=== PATIENT | male | born 1960 | race Caucasian/White ===

== ENCOUNTER 2019-07-22 10:57 | Emergency (ER) | payer MEDICARE, BC, SELFPAY ==
--- NOTE | ~2019-07-22 | US_ITS ---
EXAMINATION: US venous doppler LE RT DATE: 07/22/2019 12:24 INDICATION: Right lower limb pain post cardiac ablation. TECHNIQUE: Grayscale ultrasound images without and with compression and Doppler ultrasound images of the right lower extremity veins were obtained. COMPARISON: None. FINDINGS: The visualized portions of right common femoral vein, profunda (deep) femoral vein, femoral vein, pop liteal vein, peroneal trunk, posterior tibial veins, peroneal veins, gastrocnemius vein and greater s aphenous vein outflow are patent. IMPRESSION: 1. No deep venous thrombosis in the right lower limb. 2. Right groin hematoma as discussed in further detail on arterial duplex ultrasound of the right low er extremity. Reviewed, dictated and finalized at location A. COIL CLEANER IMPRESSION: 1. No deep venous thrombosis in the right lower limb. 2. Right groin hematoma as discussed in further detail on arterial duplex ultra sound of the right lower extremity.
--- NOTE | ~2019-07-22 | US_ITS ---
EXAMINATION: US arterial duplex LE RT DATE: 07/22/2019 12:24 INDICATION: Right groin pain post cardiac ablation TECHNIQUE: Multiple grayscale and Doppler ultrasound images of the right groin were obtained. COMPARISON: None FINDINGS: Right common femoral, profunda femoral and superficial femoral arteries are patent with normal tripha sic arterial waveforms. The right common femoral profunda femoral and femoral veins are patent with n ormal venous waveforms. No arterialization to suggest AV fistula. Along side the vessels at the right groin is a 4.9 x 3.0 x 3.6 cm hypoechoic region without internal flow on color Doppler consistent wi th a likely postoperative hematoma. No pseudoaneurysm. IMPRESSION: 1. 4.9 x 3.0 x 3.6 cm right groin hematoma. No pseudoaneurysm or AV fistula. Reviewed, dictated and finalized at location A. ING CARRIER
[2019-07-22 11:10] VITALS: BP 102/58; PULSE 81; RESP 22; TEMP 36.2; O2SAT 98
[2019-07-22 11:22] VITALS: BP 129/68; PULSE 67; RESP 21; TEMP 36.2; O2SAT 100
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
== END 2019-07-22 15:29 | disposition home or self-care (01) ==
PROVIDERS: Emergency Provider Emergency Medicine
DX: L76.32 Postprocedural hematoma of skin and subcutaneous tissue following other procedure (principal); I48.91 Unspecified atrial fibrillation; Z79.01 Long term (current) use of anticoagulants; M19.90 Unspecified osteoarthritis, unspecified site; I25.10 Atherosclerotic heart disease of native coronary artery without angina pectoris; M79.7 Fibromyalgia; E78.5 Hyperlipidemia, unspecified; I10 Essential (primary) hypertension; G62.9 Polyneuropathy, unspecified; Z85.828 Personal history of other malignant neoplasm of skin; Z86.73 Personal history of transient ischemic attack (TIA), and cerebral infarction without residual deficits; Z96.611 Presence of right artificial shoulder joint; M79.604 Pain in right leg
CPT/HCPCS: 93926; 93971; 99284

== ENCOUNTER 2020-01-04 09:32 | Emergency (ER) | payer MEDICARE, BC, SELFPAY ==
--- NOTE | ~2020-01-04 | CT_ITS ---
EXAMINATION: CT abdomen pelvis wo con DATE: 01/04/2020 10:16 INDICATION: Left flank pain. Unable to urinate. TECHNIQUE: Computed tomography (CT) of the abdomen and pelvis was performed without intravenous contr ast. Automated exposure control and iterative reconstruction technique were employed. The dose-length product was 1804.81 mGy-cm. COMPARISON: 04/30/2019 FINDINGS: 5 mm triangular intrafissural lymph node along the right minor fissure. Lung bases are otherwise darnell r. Heart size is normal. No pericardial or pleural effusion. Diffuse hepatic steatosis. Cholecystecto my clips at the gallbladder fossa. Splenic calcification consistent with old granulomatous disease. P ancreas and bilateral adrenal glands are normal. 1 cm low-attenuation right renal cyst. A couple nono bstructing stones in the mid left kidney the larger measuring 2-3 mm. No hydronephrosis or stones see n along the normal bilateral ureters. Bowels including the appendix are normal. Springer catheter in the partially decompressed bladder. No free intraperitoneal gas or fluid. No pathologically enlarged abd ominal or pelvic lymphadenopathy. T9 hemangioma. Moderate lumbar spondylosis. 5 mm retrolisthesis L3 on L4. Partial L5 laminectomy with internal fixation extending between the spinous processes of L5 an d S1. IMPRESSION: 1. Nonobstructing left nephrolithiasis with no other acute intra-abdominal/pelvic process. Reviewed, dictated and finalized at location A. IMPRESSION: 1. Nonobstructing left nephrolithiasis with no other acute intra-abdominal/pelv ic process.
[2020-01-04 09:38] VITALS: BP 190/108; PULSE 75; RESP 22; TEMP 37; O2SAT 98
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
[2020-01-04 10:09] LABS: Basophils Percent Auto 0.4 % (0.2-1.2); Eosinophils Absolute Auto 0.1 K/mm3 (0-0.3); Eosinophils Percent Auto 2.7 % (0-4.4); Hematocrit 43.8 % (42.0-52.0); Hemoglobin 14.5 g/dL (14.0-18.0); Immature Granulocyte Absolute 0.02 K/mm3 (0.00-0.031); Immature Granulocyte Percent A 0.4 % (0-0.5); Lymphocytes Absolute Auto 0.83 K/mm3 (0.9-3.2); Mean Corpuscular HGB Conc 33.1 g/dl (32-36); Mean Corpuscular Hemoglobin 28.4 pg (26-34); Mean Corpuscular Volume 85.9 fl (80-100); Mean Platelet Volume 11.9 fl (7.4-10.4); Monocytes Absolute Auto 0.6 K/mm3 (0.1-0.6); Monocytes Percent Auto 12.3 % (2.6-8.5); Neutrophils Absolute Auto 3.3 K/mm3 (1.3-6.7); Neutrophils Percent Auto 67.2 % (45.5-73.1); Platelet Count Result 242 k/mm3 (150-375); Red Cell Distribution Width 14.5 % (11.5-14.5); White Blood Count 4.9 K/mm3 (4.5-10.0)
[2020-01-04 10:14] LABS: Add Urine Microscopic? YES; Amorphous Sediment Urine Few; Appearance Urine Cloudy (Clear); Bilirubin Urine Negative (Negative); Blood Urine Negative (Negative); Color Urine Yellow (Yellow); Glucose Urine UA Negative (Negative); Ketones Urine Negative (Negative); Leukocyte Esterase Ur Negative LEU/UL (Negative); Mucus Urine Rare /lpf; Nitrate Urine Negative (Negative); Protein Urine Negative (Negative); Specific Grav Ur 1.013 (1.001-1.035); Urobilinogen Urine Negative mg/dL (<2.0); WBC Urine 0-3 /hpf
[2020-01-04 10:19] LABS: INR 2.1; Prothrombin Time 22.8 Seconds (11.1-14.7)
[2020-01-04 10:20] LABS: Partial Thromboplastin Time 41.4 SECONDS (22.3-36.8)
[2020-01-04 10:21] LABS: Alanine Aminotransferase 85 U/L (4-50); Albumin Level 4.9 g/dL (3.5-5.1); Alkaline Phosphatase 106 U/L (38-126); Aspartate Amino Transferase 61 U/L (17-59); Bilirubin,Total 0.6 mg/dL (0.2-1.3); Blood Urea Nitrogen 19 mg/dL (9-20); Carbon Dioxide 23 mmol/L (22-30); Chloride 107 mmol/L (98-107); Estimated CRCL calculation 108 ml/min; Estimated Glomerular Filt Rate > 60; Glucose 106 mg/dL (75-110); Lipase 128 U/L (23-300); Potassium 3.6 mmol/L (3.4-5.0); Sodium 139 mmol/L (137-145)
[2020-01-04 10:40] VITALS: TEMP 37
[2020-01-04 10:53] VITALS: BP 142/84; PULSE 69; RESP 18; O2SAT 98
[2020-01-04] MEDS: KETOROLAC 30 MG/ML VIAL (*BKC) IV PUSH (11:53)
[2020-01-04 12:30] VITALS: BP 137/81; PULSE 61; RESP 18; O2SAT 97
[2020-01-04 12:32] VITALS: TEMP 37
[2020-01-04] MEDS: TAMSULOSIN HCL 0.4 MG CAPSULE PO (12:49)
[2020-01-04 12:50] VITALS: BP 140/72; PULSE 62; RESP 17; O2SAT 97
== END 2020-01-04 13:00 | disposition home or self-care (01) ==
PROVIDERS: Emergency Provider Emergency Medicine; PCP Internal Medicine
DX: R10.84 Generalized abdominal pain (principal); N20.0 Calculus of kidney; I48.91 Unspecified atrial fibrillation; Z79.01 Long term (current) use of anticoagulants; M19.90 Unspecified osteoarthritis, unspecified site; I25.10 Atherosclerotic heart disease of native coronary artery without angina pectoris; M79.7 Fibromyalgia; E78.5 Hyperlipidemia, unspecified; I10 Essential (primary) hypertension; G62.9 Polyneuropathy, unspecified; Z85.828 Personal history of other malignant neoplasm of skin; G47.30 Sleep apnea, unspecified; Z86.73 Personal history of transient ischemic attack (TIA), and cerebral infarction without residual deficits; Z96.611 Presence of right artificial shoulder joint; F41.9 Anxiety disorder, unspecified; F43.10 Post-traumatic stress disorder, unspecified
CPT/HCPCS: 36415; 51702; 74176; 80053; 81001; 83605; 83690; 85025; 85610; 85730; 96374; 96375; 99284; A9270; J1885; J3010

== ENCOUNTER 2020-05-14 13:49 | Observation (INO) | payer MEDICARE, BC, SELFPAY ==
--- NOTE | ~2020-05-14 | XR_ITS ---
EXAMINATION: XR chest 1V DATE: 05/14/2020 14:18 INDICATION: Hypertension. TECHNIQUE: A single frontal view of the chest was obtained. COMPARISON: Chest 2 views 04/30/2019 FINDINGS: There is mild atelectasis in the lower lung zones. No pleural effusion or pneumothorax. The heart size is normal. There is an electronic implant in left chest wall. There are old healed right rib fractures. IMPRESSION: 1. Mild atelectasis in the lower lung zones. Reviewed, dictated and finalized at location B. RELATIONS ADVISER
--- NOTE | ~2020-05-14 | US_ITS ---
EXAMINATION: US carotid duplex BI EXAM DATE: 05/15/2020 10:17 INDICATION: Speech impairment. TECHNIQUE: Grayscale, color and pulsed Doppler images of the cervical carotid arteries were obtained . The degree of vessel stenosis is placed in one of the following categories: normal, <50% stenosis, 50-69% stenosis, >=70% stenosis but less than near-occlusion, near-occlusion, or occlusion. Note that percent stenosis relative to normal distal artery lumen diameter is indirectly measured from velocit y measurements as described by Ric, et al. Radiology 2003; 229:340-346. Comparison is made to prior examination from 11/15/2017. FINDINGS: There is incidental right thyroid lobe predominantly cystic isoechoic nodule, category TR 1 measuring about 1 x 2 cm. Not likely clinically significant finding. RIGHT SIDE: Right common carotid artery peak systolic velocity (PSV in cm/s): 56 Right bulb/internal carotid artery peak systolic velocity (PSV in cm/s): 94 Right internal carotid artery end diastolic velocity (EDV in cm/s): 34 Right ICA/CCA peak systolic ratio: 1.4 Right external carotid artery peak systolic velocity (PSV in cm/s): 35 Right vertebral artery antegrade flow: yes There is no focal plaque identified. LEFT SIDE: Left common carotid artery peak systolic velocity (PSV in cm/s): 59 Left bulb/internal carotid artery peak systolic velocity (PSV in cm/s): 55 Left internal carotid artery end diastolic velocity (EDV in cm/s): 22 Left ICA/CCA peak systolic ratio: 0.9 Left external carotid artery peak systolic velocity (PSV in cm/s): 36 Left vertebral artery antegrade flow: yes There is no focal plaque identified. IMPRESSION: 1. Normal right internal carotid artery. 2. Normal left internal carotid artery. Reviewed, dictated and finalized at location B. OR ENLISTED ADVISOR
--- NOTE | ~2020-05-14 | MR_ITS ---
EXAMINATION: MR brain/brain stem wo/w con DATE: 05/15/2020 12:53 INDICATION: Right facial weakness. Transient ischemic attack. TECHNIQUE: Magnetic resonance imaging (MRI) of the brain and brainstem was performed without and with 20 mL MultiHance intravenous contrast. Sequences included sagittal and axial T1-weighted FSE, axial diffusion-weighted FS EPI, axial T2*-weighted GRE, axial T2-weighted FLAIR Propeller, and axial T2-we ighted Propeller. Postcontrast sequences included axial and coronal T1-weighted FSE. Apparent diffusi on coefficient (ADC) maps were created. COMPARISON: Brain MRI 11/05/2017 FINDINGS: Artifact from the patient's mouth obscures the anteroinferior aspect of the brain on the di ffusion-weighted sequence. There are scattered areas of nonspecific increased T2-weighted signal inte nsity in the cerebral white matter, which is within normal limits for the patient's age. There is no intracranial hemorrhage, acute infarction, or abnormal intracranial mass lesion. The ventricles are n ormal in size. The mastoid air cells are normal. There is mild mucosal thickening in the paranasal si nuses. There are likely changes of ocular lens replacement surgeries. IMPRESSION: 1. Normal aging brain. Reviewed, dictated and finalized at location A. ING MACHINE SET UP OPERATOR IMPRESSION: 1. Normal aging brain.
--- NOTE | ~2020-05-14 | CT_ITS ---
EXAMINATION: CTA chest PE abdomen pel DATE: 05/14/2020 17:07 INDICATION: Chest pain TECHNIQUE: Computed tomography angiography (CTA) of the chest, abdomen and pelvis was performed with 100 mL Omnipaque-350 intravenous contrast timed to evaluate the pulmonary arteries. Coronal maximum i ntensity projection 3D-reconstructions were created by the technologist. Automated exposure control a nd iterative reconstruction technique were employed. Exam dose: 2744.80 mGy-cm total exam DLP. COMPARISON: 01/2020 CT abdomen pelvis 11/05/2017 CTA chest FINDINGS: There is no evidence of pulmonary embolism. No thoracic aortic aneurysm or dissection. Normal heart size. Trace pericardial fluid. No pulmonary infiltrate or consolidation. There are calcified left hilar nodes and calcified granulom as in the posterior segment left upper lobe, consistent with old pulmonary granulomatous disease. Occasional splenic calcified granulomas are noted as well. No hilar or mediastinal mass lesion or lymphadenopathy. Status post cholecystectomy. No bile duct dilatation. No hepatic, pancreatic or splenic space-occupyi ng mass lesion. Normal morphology of the adrenal glands. 1.6 cm posterior upper pole right renal cyst. There is an indeterminate approximately 2.6 cm hypoenha ncing anterior mid left renal lesion with attenuation of approximately 39 Hounsfield units. Different ial diagnosis includes left renal cyst, focal pyelonephritis, abscess, left renal malignancy, less li rosana focal infarct. There are immediately adjacent approximately 4.8 mm and 3.4 mm nonobstructing left renal calculi. Normal caliber of the abdominal aorta minimal atherosclerotic calcification. No intraperitoneal or retroperitoneal or pelvic mass lesion or adenopathy or ascites is noted otherwi se. There is mild colonic diverticulosis; no CT evidence of diverticulitis. No bowel obstruction, bowel w all thickening, pneumatosis or intraperitoneal free air. There is moderate prostate enlargement. There are prostate calcifications. The urinary bladder is unr emarkable. Right humeral head replacement. Degenerative change at the acromioclavicular and glenohumeral joints. Old posterior healed lower right rib fractures. Degenerative disc disease of the lower cervical spine. Diffuse idiopathic skeletal hyperostosis of the thoracic spine. T10 vertebral body hemangioma. Posterior fusion at L5-S1. There is severe degenerative disease in the mid and lower lumbar spine. Th ere is mild retrolisthesis at L3-4. Osteoarthritis at the hip joints. IMPRESSION: Indeterminate hypoenhancing 2.6 cm left renal lesion 4.8 and 3.4 mm left nonobstructing renal calculi 1.6 cm posterior upper pole right renal cyst Mild colonic diverticulosis Moderate prostate enlargement, prostate calcifications Status post cholecystectomy Reviewed, dictated and finalized at Location A. Reviewed, dictated and finalized at location A. RAL STATION OPERATOR
--- NOTE | ~2020-05-14 | US_ITS ---
EXAMINATION: US renal BI DATE: 05/15/2020 10:18 INDICATION: Renal mass TECHNIQUE: Multiple ultrasound grayscale images of the kidneys were obtained. COMPARISON: None. FINDINGS: The right kidney measures 11.8 x 5.6 x 6.7 cm. The left kidney measures 12.0 x 6.2 x 6.5 cm. The kidn eys demonstrate normal echogenicity. There are couple small anechoic cysts at the upper pole of the r ight kidney measuring 1.5 cm and 1.0 cm in maximal diameters. 7 mm shadowing renal stone at the perip gordon of a 2.4 cm anechoic cyst at the upper pole of the left kidney which corresponds to the intermed iate attenuation lesion on the prior CT most likely a hemorrhagic/proteinaceous cyst. There is no hyd ronephrosis in either kidney. The bladder appears normal with calculated prevoid bladder volume of 24 1 mL and with increased postvoid residual bladder volume of 80 mL. Incidentally noted is diffuse hepa tic steatosis. IMPRESSION: 1. Bilateral renal cysts which includes the previously noted intermediate attenuation 2.4 cm lesion at the upper pole of the left kidney consistent with a proteinaceous/hemorrhagic cyst. 2. Nonobstructing 7 mm left renal stone with no hydronephrosis. 3. Mild increased postvoid residual bladder volume of 80 mL. 4. Diffuse hepatic steatosis. Reviewed, dictated and finalized at [facility]. ING FACILITATOR IMPRESSION: 1. Bilateral renal cysts which includes the previously noted intermediate atte nuation 2.4 cm lesion at the upper pole of the left kidney consistent with a pr oteinaceous/hemorrhagic cyst. 2. Nonobstructing 7 mm left renal stone with no hydronephrosis. 3. Mild increased postvoid residual bladder volume of 80 mL. 4. Diffuse hepatic steatosis.
--- NOTE | ~2020-05-14 | CT_ITS ---
EXAMINATION: CT brain wo con DATE: 05/14/2020 14:14 INDICATION: Slurred speech, numbness and altered mental status. TECHNIQUE: Computed tomography (CT) of the head was performed without intravenous contrast. Sagittal and coronal reconstructions were performed. The mA was adjusted according to patient size. Iterative reconstruction technique was employed. The dose-length product was 605.33 mGy-cm. COMPARISON: Head CT and brain MR dated 11/05/2017 FINDINGS: No acute intracranial hemorrhage, acute infarction or abnormal extra axial fluid collection. Ventricl es are normal and symmetric. No mass/mass effect. Changes of bilateral intraocular lens replacement. The orbits and mastoid air cells are normal. Mild mucosal thickening the bilateral ethmoid sinuses. IMPRESSION: 1. Normal brain. No acute intracranial process. Reviewed, dictated and finalized at location A. CIATE ENTERTAINMENT EDITOR
--- NOTE | 2020-05-14 13:59 | ECG_ITS ---
Measurements Intervals [place] Rate: 82 P: 56 OH: 124 QRS: 16 QRSD: 97 T: 47 QT: 406 QTc: 476 Interpretive Statements SINUS RHYTHM CANNOT RULE OUT SEPTAL INFARCT, AGE INDETERMINATE BORDERLINE ST-T WAVE ABNORMALITY- ANTEROLAT/INF LEADS BASELINE WANDER- V2 ABNORMAL ECG Electronically Signed On 05-15-2020 8:57:11 DIVISION TOLL WIRE CHIEF by Chano Villagomez D.O.
[2020-05-14 14:00] VITALS: BP 121/111; PULSE 82; RESP 20; TEMP 36.8; O2SAT 100
[2020-05-14 14:33] LABS: Basophils Percent Auto 0.3 % (0.2-1.2); Eosinophils Absolute Auto 0.1 K/mm3 (0-0.3); Hematocrit 41.7 % (42.0-52.0); Hemoglobin 14.3 g/dL (14.0-18.0); Immature Granulocyte Absolute 0.03 K/mm3 (0.00-0.031); Immature Granulocyte Percent A 0.4 % (0-0.5); Lymphocytes Absolute Auto 1.24 K/mm3 (0.9-3.2); Lymphocytes Percent Auto 17.3 % (18.3-44.2); Mean Corpuscular HGB Conc 34.3 g/dl (32-36); Mean Corpuscular Hemoglobin 28.9 pg (26-34); Mean Corpuscular Volume 84.2 fl (80-100); Mean Platelet Volume 11.6 fl (7.4-10.4); Monocytes Absolute Auto 0.8 K/mm3 (0.1-0.6); Monocytes Percent Auto 11.7 % (2.6-8.5); Neutrophils Percent Auto 69.3 % (45.5-73.1); Platelet Count Result 263 k/mm3 (150-375); Red Blood Count 4.95 M/mm3 (4.6-6.20); White Blood Count 7.2 K/mm3 (4.5-10.0)
[2020-05-14] MEDS: LORazepam INJ (*CRX) 2 MG/ML VIAL 0.5 MG IV PUSH (14:41)
[2020-05-14] MEDS: MORPHINE SULFATE (*CRX) 4 MG/ML INJ IV PUSH (14:41)
[2020-05-14 14:45] LABS: Anion Gap 12 mmol/L (8-16); Blood Urea Nitrogen 32 mg/dL (9-20); Calcium 10.1 mg/dL (8.4-10.2); Carbon Dioxide 28 mmol/L (22-30); Chloride 100 mmol/L (98-107); Estimated CRCL calculation 78 ml/min; Estimated Glomerular Filt Rate 52; Glucose 102 mg/dL (75-110); INR 1.3; Partial Thromboplastin Time 30.1 SECONDS (22.3-36.8); Potassium 2.9 mmol/L (3.4-5.0); Prothrombin Time 16.3 Seconds (11.1-14.7); Sodium 140 mmol/L (137-145)
[2020-05-14 14:58] LABS: Troponin I 0.027 ng/mL (0.000-0.034)
[2020-05-14 16:00] VITALS: BP 172/100; PULSE 74; RESP 20; O2SAT 99
[2020-05-14] MEDS: KCL 20 MEQ/SW 100 ML 100 ML 50 MEQ IVPB (16:00)
[2020-05-14] MEDS: HYDROmorphone HCL INJ (*CRX) 1 MG/ML SYR IV PUSH (16:44)
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
[2020-05-14 18:00] VITALS: BP 162/78; PULSE 78; RESP 18; O2SAT 99
--- NOTE | 2020-05-14 19:05 | ADMGEN ---
This patient, London Menendez, was admitted to Medical Room 344-01. Patient/family oriented to hospital policies and general routines including ID bracelet, bed and alarms, visiting hours, pain management, procedures, bathroom and other care routines, personal items, smoking policy, room service/diet, and visiting hours. Information on how to activate the Rapid Response Team has been discussed. Patient/Family are encouraged to report perceived risks to care and to ask questions if they do not understand what they are told or what they should do.
[2020-05-14 19:38] VITALS: BP 146/80; PULSE 68; RESP 16; TEMP 36.1; O2SAT 100; BMI 41.4
[2020-05-14 20:00] VITALS: PULSE 70
[2020-05-14 21:12] LABS: Troponin I 0.018 ng/mL (0.000-0.034)
[2020-05-15] VITALS (8 sets, daily range): BP systolic 140–145; BP diastolic 59–94; PULSE 69–84; RESP 16–18; TEMP 35.6–36.1; O2SAT 94–100
--- NOTE | 2020-05-15 | ECHO_ITS ---
Patient Info Name: London Menendez Age: 59 years : 1960 Gender: Male Ht: 75 in Wt: 332 lbs BSA: 2.88 m2 HR: 85 bpm BP: 146 / 80 mmHg Heart Rhythm: Sinus Rhythm Technical Quality: Fair Exam Date: 05/15/2020 11:33 AM Exam Location: [facility] Patient Status: Inpatient Admit Date: 05/14/2020 Staff Ordering Physician: Zahraa Melendez NP Branch Service Leader: Yunier Talavera RDCS Attending Provider: Cesar Schumacher MD Referring Physician: Nora ACKERMAN; Exam Type: CA echo dop bubble study w con Study Info Indications 435.9 - TIA Complete two-dimensional, color flow and Doppler transthoracic echocardiogram is performed with contrast to opacify the left ventricle and to improve the deliniation of the left ventricle endocardial borders. Agitated saline study is performed. Contrast/Agitated Saline Contrast/Ag. Saline: Definity Amount: 1.00 ml Administered By: Bridgette Naik RN Existing IV Access: Yes Contrast/Ag. Saline: Agitated Saline Amount: 18.00 ml Administered By: Bridgette Naik RN Existing IV Access: Yes History/Risk Factors TIAs, HTN, CAD, pAfib s/p ablation. Summary 1. There is mild concentric increased left ventricular wall thickness. 2. Left ventricular systolic function is normal, estimated at 65-70%. 3. Left atrial chamber dimension is mildly enlarged. 4. Intact interatrial septum visualized by agitated saline imaging. 5. No shunt at the level of the atrial septum identified. 6. Definity contrast injected to improve visualization. Left Ventricle Left ventricular chamber dimension is normal. Left ventricular systolic function is normal, estimated at 65-70%. There is mild concentric increased left ventricular wall thickness. The left ventricular diastolic function is normal. Right Ventricle Right ventricular chamber dimension is normal. Left Atria Left atrial chamber dimension is mildly enlarged. Right Atria Right atrial chamber dimension is normal. Atrial Septum Intact interatrial septum visualized by agitated saline imaging. No shunt at the level of the atrial septum identified. Aortic Valve The aortic valve is normal. Pulmonic Valve The pulmonic valve is not well visualized. Mitral Valve The mitral valve has normal leaflets. Tricuspid Valve The tricuspid valve leaflets are normal. Pericardium/Pleural The pericardium appears normal. Aorta The aortic root size at the sinus of Valsalva is normal. Left Ventricular Outflow Tract Name Value Normal LVOT 2D LVOT Diameter 2.0 cm LVOT Doppler LVOT Peak Gradient 4 mmHg LVOT Mean Gradient 2 mmHg LVOT VTI 16 cm LVOT VTI/AV VTI Ratio 0.8 LVOT Stroke Volume 47 ml LVOT CO 3.9 l/min LVOT CI 1.4 l/min/m2 Mitral Valve
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
--- NOTE | 2020-05-15 00:09 | ECG_ITS ---
Measurements Intervals [place] Rate: 74 P: 60 NJ: 148 QRS: 30 QRSD: 93 T: 38 QT: 434 QTc: 482 Interpretive Statements SINUS RHYTHM VENTRICULAR PREMATURE COMPLEX PROLONGED QT INTERVAL ABNORMAL ECG Electronically Signed On 05-15-2020 13:41:20 ASSISTANT PROFESSOR OF THEATER by Chano Villagomez D.O.
[2020-05-15 00:10] LABS: Troponin I 0.022 ng/mL (0.000-0.034)
[2020-05-15 00:50] LABS: Anion Gap 12 mmol/L (8-16); Blood Urea Nitrogen 30 mg/dL (9-20); Calcium 9.2 mg/dL (8.4-10.2); Carbon Dioxide 27 mmol/L (22-30); Chloride 101 mmol/L (98-107); Estimated CRCL calculation 84 ml/min; Estimated Glomerular Filt Rate 56; Glucose 99 mg/dL (75-110); Potassium 2.7 mmol/L (3.4-5.0); Sodium 140 mmol/L (137-145)
[2020-05-15 01:09] LABS: INR 1.2; Prothrombin Time 15.9 Seconds (11.1-14.7)
[2020-05-15] MEDS: POTASSIUM CHLORIDE 20 MEQ TABLET 40 MEQ PO (01:16)
[2020-05-15] MEDS: HYDROcodone/acetaminophen (*CRX) 10-325 MG TABLET 1 TAB PO ×2 (01:16→08:37)
--- NOTE | 2020-05-15 01:35 | PCRCNOTE ---
patient declined use of hospital cpap/bipap unit
[2020-05-15 06:33] LABS: Basophils Percent Auto 0.2 % (0.2-1.2); Eosinophils Absolute Auto 0.2 K/mm3 (0-0.3); Eosinophils Percent Auto 2.6 % (0-4.4); Hematocrit 40.9 % (42.0-52.0); Hemoglobin 13.8 g/dL (14.0-18.0); Immature Granulocyte Absolute 0.02 K/mm3 (0.00-0.031); Immature Granulocyte Percent A 0.3 % (0-0.5); Lymphocytes Percent Auto 24.4 % (18.3-44.2); Mean Corpuscular HGB Conc 33.7 g/dl (32-36); Mean Corpuscular Hemoglobin 28.5 pg (26-34); Mean Corpuscular Volume 84.3 fl (80-100); Mean Platelet Volume 11.6 fl (7.4-10.4); Monocytes Absolute Auto 0.9 K/mm3 (0.1-0.6); Monocytes Percent Auto 15.5 % (2.6-8.5); Neutrophils Absolute Auto 3.3 K/mm3 (1.3-6.7); Platelet Count Result 253 k/mm3 (150-375); Red Blood Count 4.85 M/mm3 (4.6-6.20); Red Cell Distribution Width 13.9 % (11.5-14.5); White Blood Count 5.7 K/mm3 (4.5-10.0)
[2020-05-15 07:07] LABS: Alanine Aminotransferase 127 U/L (4-50); Albumin Level 4.4 g/dL (3.5-5.1); Alkaline Phosphatase 90 U/L (38-126); Anion Gap 10 mmol/L (8-16); Aspartate Amino Transferase 107 U/L (17-59); Bilirubin,Total 0.6 mg/dL (0.2-1.3); Blood Urea Nitrogen 28 mg/dL (9-20); Carbon Dioxide 28 mmol/L (22-30); Chloride 102 mmol/L (98-107); Estimated CRCL calculation 90 ml/min; Estimated Glomerular Filt Rate > 60; Glucose 89 mg/dL (75-110); Magnesium 2.2 mg/dL (1.6-2.3); Potassium 3.1 mmol/L (3.4-5.0); Sodium 140 mmol/L (137-145)
[2020-05-15] MEDS: POTASSIUM CHLORIDE 10 MEQ TABLET PO (08:37)
[2020-05-15] MEDS: PRAZOSIN HCL 1 MG CAPSULE 2 MG PO (08:39)
[2020-05-15] MEDS: VENLAFAXINE HCL XR 75 MG CAP.ER.24H 150 MG PO (08:40)
[2020-05-15] MEDS: DOCUSATE SODIUM 100 MG CAPSULE PO (08:40)
[2020-05-15] MEDS: amLODIPine BESYLATE 5 MG TABLET 10 MG PO (08:40)
[2020-05-15] MEDS: ISOSORBIDE MONONITRATE 30 MG TAB.ER.24H PO (08:40)
[2020-05-15] MEDS: GABAPENTIN 300 MG CAPSULE PO ×2 (08:40→17:10)
[2020-05-15] MEDS: TOPIRAMATE 100 MG TABLET PO ×2 (08:41→17:12)
[2020-05-15] MEDS: ATORVASTATIN 40 MG TABLET PO (08:41)
[2020-05-15] MEDS: PANTOPRAZOLE 40 MG TABLET PO (08:41)
[2020-05-15] MEDS: FENOFIBRATE 160 MG TABLET PO (08:41)
[2020-05-15] MEDS: MAGNESIUM OXIDE 200 MG TABLET PO ×2 (08:41→17:11)
[2020-05-15] MEDS: OMEGA 3 POLYUNSAT FATTY ACIDS 1 GM CAP PO ×2 (08:41→17:11)
[2020-05-15] MEDS: calcium polycarbophiL 625 MG TABLET PO (08:41)
[2020-05-15] MEDS: PREGABALIN (*CRX) 50 MG CAPSULE 100 MG PO ×2 (08:44→17:12)
[2020-05-15] MEDS: POTASSIUM CHLORIDE 20 MEQ TABLET PO (08:44)
[2020-05-15] MEDS: NAPROXEN 500 MG TABLET PO (13:05)
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
[2020-05-15] MEDS: WARFARIN (*PBKC) 4 MG TABLET 8 MG PO (17:13)
--- NOTE | 2020-05-15 17:34 | PM.DS ---
DS: Admitting Diagnosis Admitting Diagnosis Admitting Diagnosis: Chest Pain, TIA DS: Discharge Diagnosis Discharge Diagnosis (1) Brain TIA: Code(s): G45.9 - Transient cerebral ischemic attack, unspecified Status: Acute Assessment and Plan: The patient presented with complaints of facial numbness and inability to raise his arms. Patient has hx of TIA. Brain CT showing normal brain. Brain MRI showing normal aging brain. Carotid US showing normal right and left internal carotid artery. Echo showing EF 65% with normal diastolic function. No shunt. Neuro followed along. ASA added. Sx resolved. Already on Lipitor. (2) Chest pain: Qualifiers: Chest pain type: unspecified Qualified Code(s): R07.9 - Chest pain, unspecified Code(s): R07.9 - Chest pain, unspecified Status: Acute Assessment and Plan: Patient with atypical CP. CXR showing mild atelectasis in the lower lung zones. troponins have been negative x3. EKG showing borderline ST-T wave changes in the anterolateral leads. Echo as above. CTA showing no PEs. Doubt this was cardiac related. (3) A-fib: Code(s): I48.91 - Unspecified atrial fibrillation Status: Acute Assessment and Plan: On Coumadin but INR subherapeutic. He states he is compliant with his medications. (4) Elevated LFTs: Code(s): R79.89 - Other specified abnormal findings of blood chemistry Status: Acute Assessment and Plan: AST/ALT elevated but noted before for the past year. CT scan showing status post cholecystectomy with no bile duct dilatation or hepatic space-occupying mass lesions. Continue Lipitor for now since about 2x/normal. Repeat as outpatient. (5) Renal lesion: Code(s): N28.9 - Disorder of kidney and ureter, unspecified Status: Acute Assessment and Plan: CT scan showing indeterminate hypoenhancing 2.6 cm left renal lesion with 4.8 and 3.4 mm left nonobstructing renal calculi. He does have some mild left sided back pain. Renal US showing bilateral renal cysts which includes the previously noted intermediate attenuation 2.4 cm lesion at the upper pole of the left kidney consistent with a proteinaceous/hemorrhagic cyst. UA negative. No evidence of urinary infection or blood in urine. (6) Hypertension: Code(s): I10 - Essential (primary) hypertension Status: Chronic Assessment and Plan: BP elevated at home and here. We continued with Norvasc. Will add metoprolol since might help his BENDER. (7) Rheumatoid arthritis: Code(s): M06.9 - Rheumatoid arthritis, unspecified Status: Chronic Assessment and Plan: He takes naproxen, Arava. (8) Anxiety: Code(s): F41.9 - Anxiety disorder, unspecified Status: Chronic Assessment and Plan: Stable. DS: Summary Hospital Course Reason for hospitalization: 59yo male here for atypical chest/left shoulder pain and possible TIA symptoms. Please see H&P for details. Hospital Course: As above Status at Discharge Cognitive/behavioral status at discharge: PATIENT STABLE AT DISCHARGE Time Spent with Patient Time attestation: Total time spent providing and/or coordinating discharge services: 35 minutes Time spent: Greater than 30 minutes Exam Narrative: Exam Narrative: AF 96.0 140/59 74 18 97% ra Gen - NARD Chest -CTA Bilaterally, nml RR CV - RRR S1/S2 Abd - soft obese, NT Back - left perispinal tenderness, no CVA tenderness, +SLR on the left Ext - no edema 2+ DP Psych - nml mood, odd affect Skin - wrm and dry DS: Data Data Completed and Pending Labs on day of discharge: Labs from last 24 hours 05/15/20 05/15/20 05/15/20 05:36 05:36 05:36 WBC 5.7 RBC 4.85 Hgb 13.8 L Hct 40.9 L MCV 84.3 MCH 28.5 MCHC 33.7 RDW 13.9 Plt Count 253 MPV 11.6 H Immature Gran % (Auto) 0.3 Neut % (Auto) 57.0 Lymph % (Auto
[2020-05-15 18:11] LABS: Add Urine Microscopic? YES; Appearance Urine Cloudy (Clear); Bacteria Urine Trace /hpf; Bilirubin Urine Negative (Negative); Blood Urine Negative (Negative); Color Urine Yellow (Yellow); Glucose Urine UA Negative (Negative); Ketones Urine Negative (Negative); Leukocyte Esterase Ur Negative LEU/UL (Negative); Nitrate Urine Negative (Negative); Protein Urine Negative (Negative); RBC Urine 0-2 /hpf (0-2); Specific Grav Ur 1.029 (1.001-1.035); Urobilinogen Urine Negative mg/dL (<2.0); WBC Urine 0-3 /hpf
[2020-05-15] MEDS: ASPIRIN 81 MG CHEWABLE TABLET PO (18:28)
== END 2020-05-15 18:50 | disposition home or self-care (01) ==
LOC: ANHED 19:06 → ANH3MED 19:09
PROVIDERS: Emergency Medicine; Nurse Practitioner; Admitting Provider Internal Medicine; Emergency Provider Emergency Medicine; PCP Internal Medicine; Visit Provider Internal Medicine
DX: G45.9 Transient cerebral ischemic attack, unspecified (principal); R07.9 Chest pain, unspecified; N28.9 Disorder of kidney and ureter, unspecified; R79.89 Other specified abnormal findings of blood chemistry; N20.0 Calculus of kidney; N28.1 Cyst of kidney, acquired; K57.30 Diverticulosis of large intestine without perforation or abscess without bleeding; N40.0 Benign prostatic hyperplasia without lower urinary tract symptoms; G43.909 Migraine, unspecified, not intractable, without status migrainosus; I48.91 Unspecified atrial fibrillation; I25.10 Atherosclerotic heart disease of native coronary artery without angina pectoris; I10 Essential (primary) hypertension; M06.9 Rheumatoid arthritis, unspecified; E78.5 Hyperlipidemia, unspecified; G47.30 Sleep apnea, unspecified; G62.9 Polyneuropathy, unspecified; M79.7 Fibromyalgia; F41.8 Other specified anxiety disorders; Z86.73 Personal history of transient ischemic attack (TIA), and cerebral infarction without residual deficits; F43.10 Post-traumatic stress disorder, unspecified; Z23 Encounter for immunization
CPT/HCPCS: 36415; 70450; 70553; 71045; 71275; 74177; 76775; 80048; 80053; 81001; 83735; 84443; 84484; 85025; 85610; 85730; 86140; 90471; 90653; 93005; 93880; 96365; 96366; 96375; 99285; A9270; A9577; C8929; G0008; G0378; J1170; J2060; J2270; J3480; Q9957; Q9967

== ENCOUNTER 2020-06-28 15:23 | Emergency (ER) | payer MEDICARE, BC, SELFPAY ==
--- NOTE | ~2020-06-28 | XR_ITS ---
EXAMINATION: XR chest 2V 06/28/2020 16:02 INDICATION: Left midsternal chest pain and cough PROCEDURE: 2 view chest COMPARISON: Comparison to multiple prior studies sequentially, with oldest reviewed study dated 12/17. FINDINGS: The lungs are clear. The cardiomediastinal silhouette is within normal limits. There are no pleural effusions. There is no pneumothorax suspected. IMPRESSION: 1: NO ACUTE CARDIOPULMONARY DISEASE. Reviewed, dictated and finalized at location A. TROMECHANICAL EQUIPMENT TESTER
[2020-06-28 15:26] VITALS: BP 173/100; PULSE 89; RESP 20; TEMP 37; O2SAT 95
--- NOTE | 2020-06-28 15:30 | ECG_ITS ---
Measurements Intervals [place] Rate: 85 P: 59 ND: 151 QRS: 9 QRSD: 109 T: 37 QT: 393 QTc: 469 Interpretive Statements SINUS RHYTHM NORMAL ECG Electronically Signed On 06-28-2020 15:45:04 WALLPAPER INSPECTOR by Chano Villagomez D.O.
[2020-06-28] MEDS: ASPIRIN 81 MG CHEWABLE TABLET 324 MG PO (15:37)
[2020-06-28 15:40] LABS: Basophils Percent Auto 0.3 % (0.2-1.2); Eosinophils Absolute Auto 0.1 K/mm3 (0-0.3); Hematocrit 40.4 % (42.0-52.0); Hemoglobin 13.7 g/dL (14.0-18.0); Immature Granulocyte Absolute 0.01 K/mm3 (0.00-0.031); Immature Granulocyte Percent A 0.3 % (0-0.5); Lymphocytes Absolute Auto 0.73 K/mm3 (0.9-3.2); Lymphocytes Percent Auto 18.3 % (18.3-44.2); Mean Corpuscular HGB Conc 33.9 g/dl (32-36); Mean Corpuscular Hemoglobin 29.1 pg (26-34); Mean Corpuscular Volume 85.8 fl (80-100); Monocytes Absolute Auto 0.5 K/mm3 (0.1-0.6); Monocytes Percent Auto 13.3 % (2.6-8.5); Neutrophils Absolute Auto 2.6 K/mm3 (1.3-6.7); Neutrophils Percent Auto 65.8 % (45.5-73.1); Platelet Count Result 217 k/mm3 (150-375); Red Blood Count 4.71 M/mm3 (4.6-6.20); Red Cell Distribution Width 13.5 % (11.5-14.5)
[2020-06-28 15:52] LABS: Anion Gap 11 mmol/L (8-16); Blood Urea Nitrogen 22 mg/dL (9-20); Calcium 8.9 mg/dL (8.4-10.2); Carbon Dioxide 26 mmol/L (22-30); Chloride 103 mmol/L (98-107); Estimated CRCL calculation 98 ml/min; Estimated Glomerular Filt Rate > 60; Glucose 131 mg/dL (75-110); Potassium 3.2 mmol/L (3.4-5.0); Sodium 140 mmol/L (137-145)
[2020-06-28 15:55] LABS: INR 2.4; Prothrombin Time 26.3 Seconds (11.1-14.7)
[2020-06-28 15:56] LABS: Partial Thromboplastin Time 46.2 SECONDS (22.3-36.8)
[2020-06-28 16:04] LABS: Troponin I < 0.012 ng/mL (0.000-0.034)
[2020-06-28 16:08] VITALS: BP 159/98; PULSE 80; RESP 20; O2SAT 96
[2020-06-28 16:48] VITALS: BP 157/101; PULSE 75; RESP 20; O2SAT 95
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
[2020-06-28 17:33] VITALS: BP 154/91; PULSE 76; RESP 20; O2SAT 98
[2020-06-28] MEDS: POTASSIUM CHLORIDE 20 MEQ TABLET 40 MEQ PO (18:06)
[2020-06-28 18:14] VITALS: BP 167/97; PULSE 76; RESP 20; O2SAT 99
[2020-06-29 17:10] LABS: SARS-CoV-2 RNA PCR Positive
== END 2020-06-28 18:16 | disposition home or self-care (01) ==
PROVIDERS: Emergency Provider Emergency Medicine
DX: U07.1 COVID-19 (principal); R00.2 Palpitations; R07.9 Chest pain, unspecified; E87.6 Hypokalemia; F41.9 Anxiety disorder, unspecified; I48.91 Unspecified atrial fibrillation; M19.90 Unspecified osteoarthritis, unspecified site; I25.10 Atherosclerotic heart disease of native coronary artery without angina pectoris; E78.5 Hyperlipidemia, unspecified; I10 Essential (primary) hypertension; M06.9 Rheumatoid arthritis, unspecified; G62.9 Polyneuropathy, unspecified; Z85.828 Personal history of other malignant neoplasm of skin; Z86.73 Personal history of transient ischemic attack (TIA), and cerebral infarction without residual deficits; F43.10 Post-traumatic stress disorder, unspecified; F32.9 Major depressive disorder, single episode, unspecified; Z79.82 Long term (current) use of aspirin; Z79.01 Long term (current) use of anticoagulants
CPT/HCPCS: 36415; 71046; 80048; 84484; 85025; 85610; 85730; 87635; 93005; 99284; A9270; C9803; U0003

== ENCOUNTER 2020-07-06 12:25 | Inpatient (IN) | payer MEDICARE, BC, SELFPAY ==
[2020-07-06] VITALS (37 sets, daily range): BP systolic 164–200; BP diastolic 80–105; PULSE 76–120; RESP 15–27; TEMP 36.6–36.9; O2SAT 95–100; BMI 41.2
--- NOTE | ~2020-07-06 | XR_ITS ---
XR chest 1V portable 07/12/2020 09:47 Indication: Pneumonia Procedure: AP portable chest Comparison: Comparison to multiple prior studies sequentially, with oldest reviewed study dated 06/03. Findings: Cardiomegaly with diffuse bilateral airspace disease. Small left pleural effusion. No acute osseous abnormality. Impression: 1: Cardiomegaly with diffuse bilateral airspace disease which may represent edema or pneumonia. Reviewed, dictated and finalized at location A. VITIES DIRECTOR Impression: 1: Cardiomegaly with diffuse bilateral airspace disease which may represent maryaan ma or pneumonia.
--- NOTE | ~2020-07-06 | CT_ITS ---
EXAMINATION: CT brain wo con EXAM DATE: 07/06/2020 15:32 INDICATION: severe headache . COVID 19 positive. TECHNIQUE: Spiral CT of the head was performed without contrast. Axial, coronal and sagittal images were reviewed. The dose-length product (DLP) for this examination was 605.33 mGy-cm. The exposure w as tailored according to patient size, and iterative reconstruction (ASIR) was used as additional dos e reduction technique. Comparison is made to prior examination from 05/14/2020. FINDINGS: There is no acute intraparenchymal hemorrhage. No evidence of intraparenchymal brain mass lesion. No evidence of acute infarction. There is no mass effect or midline shift. The ventricles are normal in size. There are no extra-axial collections. There are no acute calvarial fractures. Chad ceja has had bilateral ocular lens surgery. Soft tissue is unremarkable. Mild ethmoid and maxilla ry sinus mucoperiosteal thickening. Only small portions of the maxillary sinuses were imaged. IMPRESSION: 1. No acute intracranial findings. Reviewed, dictated and finalized at location A. ICATION SOFTWARE ENGINEER
--- NOTE | ~2020-07-06 | CT_ITS ---
EXAMINATION: CTA chest PE protocol DATE: 07/07/2020 11:37 INDICATION: Shortness of breath. COVID-19 pneumonia. TECHNIQUE: Computed tomography angiography (CTA) of the chest was performed with 100 mL Omnipaque-350 intravenous contrast timed to evaluate the pulmonary arteries. Coronal maximum intensity projection 3D-reconstructions were created by the technologist. Automated exposure control and iterative reconst ruction technique were employed. The dose-length product was 1080.20 mGy-cm. COMPARISON: Chest CT 05/14/2020 FINDINGS: There are patchy airspace and groundglass opacities involving all lobes. Calcified left radha g nodules and calcified left hilar lymph nodes are consistent with old granulomatous disease. There a re trace pleural effusions. The heart size is normal. There are coronary artery calcifications. No pe ricardial effusion. There is no pulmonary embolus. There is a subcutaneous electronic implant in left anterior chest wall. There are old healed right rib fractures. There is mild thoracic spondylosis. T here is a hemangioma in T10 vertebral body. IMPRESSION: 1. No pulmonary embolus. 2. Diffuse lung disease, consistent with pneumonia. Reviewed, dictated and finalized at location A. ERY EQUIPMENT REPAIRER
--- NOTE | ~2020-07-06 | XR_ITS ---
XR chest 1V portable 07/06/2020 13:42 Indication: Shortness of breath and chest tightness. Covid Positive. Procedure: AP portable chest Comparison: Comparison to multiple prior studies sequentially, with oldest reviewed study dated 10/2018. Findings: Cardiomegaly. There is mild bilateral diffuse airspace disease. No pleural effusion or pneu mothorax. No acute osseous abnormality. There is a right shoulder arthroplasty. Impression: 1: Mild diffuse bilateral airspace disease which may represent pneumonia or edema. Reviewed, dictated and finalized at location A. FASTENER Impression: 1: Mild diffuse bilateral airspace disease which may represent pneumonia or maryana maThai
--- NOTE | ~2020-07-06 | XR_ITS ---
XR chest 1V portable 07/08/2020 08:28 Indication: CovidPneumonia Procedure: , AP portable chest Comparison: Comparison to multiple prior studies sequentially, with oldest reviewed study dated 04/03. Findings: Progression of patchy bilateral airspace disease, compatible with pneumonia. Cardiomegaly. There is right shoulder arthroplasty. Impression: 1: Progression of patchy bilateral airspace disease, compatible with pneumonia. Reviewed, dictated and finalized at location A. CARE SPECIALIST Impression: 1: Progression of patchy bilateral airspace disease, compatible with pneumonia.
--- NOTE | ~2020-07-06 | XR_ITS ---
XR chest 1V portable 07/10/2020 09:38 Indication: Pneumonia. Chest tightness. Procedure: AP portable chest Comparison: Comparison to multiple prior studies sequentially, with oldest reviewed study dated 05/03. Findings: Patchy bilateral airspace consolidation of the mid and lower lung zones, consistent with pn eumonia. No significant change compared with 07/08/2020. No significant effusion or pneumothorax. Impression: 1: Patchy bilateral airspace disease, compatible with pneumonia. Reviewed, dictated and finalized at location A. EAR PLANT EQUIPMENT OPERATOR Impression: 1: Patchy bilateral airspace disease, compatible with pneumonia.
--- NOTE | 2020-07-06 12:52 | ECG_ITS ---
Measurements Intervals [place] Rate: 85 P: 60 NJ: 155 QRS: 10 QRSD: 96 T: 35 QT: 384 QTc: 457 Interpretive Statements SINUS RHYTHM BASELINE WANDER- I, II, V3 NORMAL ECG Electronically Signed On 07-06-2020 13:16:32 COMMUNICATIONS INSTRUCTOR by Chano Villagomez D.O.
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
[2020-07-06] MEDS: ALBUTEROL SULFATE (*SP) AEROSOL 1 PUFF 6 PUFF INHALATION ×2 (13:06→22:43)
[2020-07-06 13:10] LABS: Alveolar/Arterial O2 Gradient 34.4 mmHg; Base Excess ABG -0.5 mEq/l (+/-2.0); Carboxyhemoglobin 0.4 % THb (0-2.0); Fractional Inspired Oxygen 21 %; HCO3 ABG 20.7 mEq/l (22.0-26.0); Methemoglobin ABG 0.1 %THb (0-1.5); Oxygen Content ABG 17.9 %vol (16.0-22.0); Oxygen Saturation ABG 97.5 % (95.0-100.0); PCO2 ABG 25.2 mmHg (35.0-45.0); PO2 ABG 85.2 mmHg (80.0-100.0); PO2 FiO2 Ratio Arterial Blood 4.06 %; Reduced Hemoglobin 3.5 %THb (0-5.0); Total Hemoglobin 13.2 g/dL (12.0-18.0)
[2020-07-06 13:11] LABS: Device ROOM AIR; Modified Allen's Test Pass; Site Drawn RIGHT RADIAL; pH ABG 7.532 (7.350-7.450)
[2020-07-06 13:30] LABS: Basophils Percent Auto 0.2 % (0.2-1.2); Eosinophils Percent Auto 0.4 % (0-4.4); Hematocrit 37.3 % (42.0-52.0); Hemoglobin 12.7 g/dL (14.0-18.0); Immature Granulocyte Absolute 0.03 K/mm3 (0.00-0.031); Immature Granulocyte Percent A 0.6 % (0-0.5); Lymphocytes Absolute Auto 0.61 K/mm3 (0.9-3.2); Lymphocytes Percent Auto 11.7 % (18.3-44.2); Mean Corpuscular Hemoglobin 28.5 pg (26-34); Mean Corpuscular Volume 83.8 fl (80-100); Mean Platelet Volume 10.5 fl (7.4-10.4); Monocytes Absolute Auto 0.6 K/mm3 (0.1-0.6); Monocytes Percent Auto 12.1 % (2.6-8.5); Neutrophils Absolute Auto 3.9 K/mm3 (1.3-6.7); Platelet Count Result 227 k/mm3 (150-375); Red Blood Count 4.45 M/mm3 (4.6-6.20); Red Cell Distribution Width 13.9 % (11.5-14.5); White Blood Count 5.2 K/mm3 (4.5-10.0)
[2020-07-06 13:39] LABS: INR 1.4; Prothrombin Time 18.2 Seconds (11.1-14.7)
[2020-07-06 13:40] LABS: Partial Thromboplastin Time 51.8 SECONDS (22.3-36.8)
[2020-07-06 13:49] LABS: Alanine Aminotransferase 63 U/L (4-50); Albumin Level 4.2 g/dL (3.5-5.1); Alkaline Phosphatase 78 U/L (38-126); Anion Gap 8 mmol/L (8-16); Aspartate Amino Transferase 71 U/L (17-59); Bilirubin,Total 0.6 mg/dL (0.2-1.3); Blood Urea Nitrogen 15 mg/dL (9-20); Calcium 8.9 mg/dL (8.4-10.2); Carbon Dioxide 25 mmol/L (22-30); Chloride 103 mmol/L (98-107); Estimated CRCL calculation 117 ml/min; Estimated Glomerular Filt Rate > 60; Glucose 102 mg/dL (75-110); Potassium 3.7 mmol/L (3.4-5.0); Sodium 136 mmol/L (137-145)
[2020-07-06 13:58] LABS: NT Pro B Type Natriuretic Pept 477 PG/ML (5-100); Troponin I 0.022 ng/mL (0.000-0.034)
[2020-07-06] MEDS: SODIUM CHLORIDE 0.9% IV 500 ML 999 ML IV CONT (14:41)
[2020-07-06] MEDS: LORazepam INJ (*CRX) 2 MG/ML VIAL 1 MG IV PUSH (14:41)
[2020-07-06] MEDS: MORPHINE SULFATE (*CRX) 4 MG/ML INJ IV PUSH (16:03)
[2020-07-06] MEDS: NITROGLYCERIN OINTMENT 1 INCH DOSE TRANSDERM (16:03)
[2020-07-06] MEDS: ONDANSETRON INJ 4 MG/2 ML VIAL IV PUSH (16:04)
[2020-07-06] MEDS: cloNIDine HCL 0.1 MG TABLET 0.2 MG PO (16:09)
[2020-07-06] MEDS: hydrALAZINE HCL 20 MG/ML VIAL 10 MG IV PUSH (16:40)
--- NOTE | 2020-07-06 18:37 | PC.NURSE ---
This patient, London Menendez, was admitted to [facility] Surg Room 303-01. Patient/family oriented to hospital policies and general routines including ID bracelet, bed and alarms, visiting hours, pain management, procedures, bathroom and other care routines, personal items, smoking policy, room service/diet, and visiting hours. Information on how to activate the Rapid Response Team has been discussed. Patient/Family are encouraged to report perceived risks to care and to ask questions if they do not understand what they are told or what they should do.
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
[2020-07-06 22:19] LABS: INR 1.5; Prothrombin Time 18.4 Seconds (11.1-14.7)
[2020-07-06] MEDS: HYDROmorphone HCL INJ (*CRX) 1 MG/ML SYR IV PUSH (22:40)
[2020-07-06] MEDS: LABETALOL HCL INJ 100 MG/20 ML VIAL 20 MG IV PUSH (22:45)
[2020-07-07] VITALS (12 sets, daily range): BP systolic 115–182; BP diastolic 58–93; PULSE 64–89; RESP 16–20; TEMP 36.1–38; O2SAT 93–99
[2020-07-07] MEDS: ENOXAPARIN 80 MG/0.8 ML SYRINGE 150 MG SUB-Q ×3 (02:04→21:40)
[2020-07-07] MEDS: LATANOPROST 0.005% OP SOLN 2.5 ML BTL 1 DROP EACH EYE ×2 (02:07→21:41)
[2020-07-07] MEDS: DOXEPIN HCL 25 MG CAPSULE PO ×2 (02:07→21:40)
[2020-07-07] MEDS: TOPIRAMATE 100 MG TABLET PO ×3 (02:08→16:50)
[2020-07-07] MEDS: QUEtiapine FUMARATE 100 MG TABLET 600 MG PO ×2 (02:08→21:40)
[2020-07-07] MEDS: SOTALOL HCL 80 MG TABLET PO ×3 (02:08→16:50)
[2020-07-07] MEDS: clonazePAM (*CRX) 0.25 MG TABLET PO ×3 (02:09→16:56)
[2020-07-07] MEDS: HYDROmorphone HCL INJ (*CRX) 1 MG/ML SYR IV PUSH ×2 (02:18→10:00)
[2020-07-07] MEDS: hydrALAZINE HCL 20 MG/ML VIAL 10 MG IV PUSH (04:04)
[2020-07-07] MEDS: LORazepam (*CRX) 0.5 MG TABLET PO (06:43)
[2020-07-07 06:50] LABS: Basophils Percent Auto 0.2 % (0.2-1.2); Hematocrit 36.6 % (42.0-52.0); Hemoglobin 12.3 g/dL (14.0-18.0); Immature Granulocyte Absolute 0.04 K/mm3 (0.00-0.031); Immature Granulocyte Percent A 0.7 % (0-0.5); Lymphocytes Percent Auto 12.5 % (18.3-44.2); Mean Corpuscular HGB Conc 33.6 g/dl (32-36); Mean Corpuscular Hemoglobin 28.2 pg (26-34); Mean Corpuscular Volume 83.9 fl (80-100); Mean Platelet Volume 11.4 fl (7.4-10.4); Monocytes Absolute Auto 0.6 K/mm3 (0.1-0.6); Monocytes Percent Auto 10.2 % (2.6-8.5); Neutrophils Absolute Auto 4.3 K/mm3 (1.3-6.7); Neutrophils Percent Auto 76.4 % (45.5-73.1); Platelet Count Result 218 k/mm3 (150-375); Red Blood Count 4.36 M/mm3 (4.6-6.20); Red Cell Distribution Width 13.7 % (11.5-14.5); White Blood Count 5.6 K/mm3 (4.5-10.0)
[2020-07-07 07:10] LABS: Alanine Aminotransferase 61 U/L (4-50); Alkaline Phosphatase 80 U/L (38-126); Anion Gap 6 mmol/L (8-16); Aspartate Amino Transferase 67 U/L (17-59); Bilirubin,Total 0.6 mg/dL (0.2-1.3); Blood Urea Nitrogen 14 mg/dL (9-20); Calcium 8.4 mg/dL (8.4-10.2); Carbon Dioxide 25 mmol/L (22-30); Chloride 102 mmol/L (98-107); Estimated CRCL calculation 106 ml/min; Estimated Glomerular Filt Rate > 60; Glucose 105 mg/dL (75-110); Sodium 133 mmol/L (137-145)
[2020-07-07] MEDS: ALBUTEROL SULFATE (*SP) AEROSOL 1 PUFF 6 PUFF INHALATION ×4 (09:57→21:39)
[2020-07-07] MEDS: DEXAMETHASONE SOD PHOS INJ 4 MG/ML VIAL 6 MG IV PUSH (09:57)
[2020-07-07 10:01] LABS: INR 1.3; Prothrombin Time 17.2 Seconds (11.1-14.7)
[2020-07-07] MEDS: OMEGA 3 POLYUNSAT FATTY ACIDS 1 GM CAP 2 GM PO ×2 (11:59→16:48)
[2020-07-07] MEDS: PREGABALIN (*CRX) 50 MG CAPSULE 100 MG PO ×2 (11:59→16:47)
[2020-07-07] MEDS: CHOLECALCIFEROL 1,000 UNITS TABLET 2000 UNITS PO (12:00)
[2020-07-07] MEDS: VENLAFAXINE HCL XR 75 MG CAP.ER.24H 150 MG PO (12:01)
[2020-07-07] MEDS: PRAZOSIN HCL 1 MG CAPSULE 2 MG PO (12:01)
[2020-07-07] MEDS: ASPIRIN 81 MG CHEWABLE TABLET PO (12:01)
[2020-07-07] MEDS: GABAPENTIN 300 MG CAPSULE PO ×2 (12:02→16:49)
[2020-07-07] MEDS: ATORVASTATIN 40 MG TABLET PO (12:02)
[2020-07-07] MEDS: ASCORBIC ACID 500 MG TABLET PO (12:02)
[2020-07-07] MEDS: MAGNESIUM OXIDE 200 MG TABLET PO ×2 (12:02→16:48)
[2020-07-07] MEDS: amLODIPine BESYLATE 5 MG TABLET 10 MG PO ×2 (12:03→16:49)
[2020-07-07] MEDS: CYANOCOBALAMIN 1,000 MCG TABLET 2000 MCG PO (12:04)
[2020-07-07] MEDS: ISOSORBIDE MONONITRATE 30 MG TAB.ER.24H PO (12:04)
[2020-07-07] MEDS: POTASSIUM CHLORIDE 20 MEQ TABLET.ER PO (12:04)
[2020-07-07] MEDS: PANTOPRAZOLE 40 MG TABLET PO (12:05)
[2020-07-07] MEDS: FENOFIBRATE 160 MG TABLET PO (12:05)
--- NOTE | 2020-07-07 14:48 | PM.IMPN ---
Progress Note: A&P Assessment and Plan (1) COVID-19: Code(s): U07.1 - COVID-19 Status: Acute Assessment and Plan: The patient has home oxygen at home and he has a pulse ox. I explained to the patient if he is not really requiring oxygen at this time that he may possibly be able to go home once his blood pressure is stable. Typically we keep people in the hospital that require oxygen. He is not requiring any oxygen at this time. I put oxygen on him because he has obstructive sleep apnea and were not able to use a CPAP machine. He did not become hypoxic. I like to do a CT a pulmonary because he was subtherapeutic on his Coumadin. He is on Coumadin for his atrial fibrillation but is in sinus rhythm because he has had a history of ablation. Incentive spirometer. I encouraged the patient to lay prone for 30 minutes to 2 hours. In to reposition himself on his sides and his back and to rotate. Continue with Robitussin. I did start the patient on Decadron. However I did not start him on REMdesivir because of his elevated liver enzymes and he is on room air at this time. He was diagnosed on 06/28/2020 07/07/20 14:48 Patient is 60-year-old male with history of hypertension atrial fibrillation had a cardioversion now in sinus rhythm, for which patient is taking warfarin and subtherapeutic, patient was diagnosed with COVID-19 were 1 week ago presented emergency department with a complaint of shortness and chest pain described as a pleuritic, and also had a low-grade fever but did not require any oxygen, to further evaluate patient had a CTA of the chest does not show any pulmonary emboli but does have pneumonia patient started on Zosyn and doxycycline, patient started on dexamethasone for COVID-19 however patient does not qualify for Remdesivir as patient is not needing high-flow oxygen, patient also has a history of hypertension and elevated blood pressure patient states that he has been taking his medication, he have resumeed patient's home medication, currently patient states feeling little better compared to when he arrived, will continue to monitor patient with repeat checks x-ray in today if there is improvement in pneumonia, patient is not requiring high-flow oxygen and no fever will discharge the patient home (2) Hypertension: Code(s): I10 - Essential (primary) hypertension Status: Chronic Assessment and Plan: I am not sure if the patient is taking his home medications. But will having difficulty controlling his blood pressure at this time. His side hydralazine clonidine and labetalol. Will continue his home medications as soon as they are reviewed. Continue with his metoprolol and Minipress (3) Migraines: Code(s): G43.909 - Migraine, unspecified, not intractable, without status migrainosus Status: Chronic Assessment and Plan: I did order Toradol for the patient the Tylenol did not help any he takes naproxen at home. He is allergic to Imitrex. Continue with ice packs as well. Continue with topiramate (4) Peripheral neuropathy: Code(s): G62.9 - Polyneuropathy, unspecified Status: Chronic Assessment and Plan: The patient is on Lyrica at home. (5) Anxiety: Code(s): F41.9 - Anxiety disorder, unspecified Status: Chronic Assessment and Plan: The patient has PTSD and is on Lyrica and Seroquel home. (6) Depression: Code(s): F32.9 - Major depressive disorder, single episode, unspecified Status: Chronic Assessment and Plan: Continue with Effexor (7) Fibromyalgia: Code(s): M79.7 - Fibromyalgia Status: Chronic Assessment and Plan: Continue with Lyrica and gabapentin (8) Hyperlipidemia: Code(s): E78.5 - Hyperlipidemia, unspecified Status: Chronic (9) Sleep apnea: Code(s): G47.30 - Sleep apnea, unspecified Status: Chronic Assessment and Plan: I am just going to put the patie
[2020-07-07] MEDS: HYDROcodone/acetaminophen (*CRX) 10-325 MG TABLET 1 TAB PO (16:56)
[2020-07-07] MEDS: WARFARIN (*PBKC) 10 MG TABLET PO (18:08)
[2020-07-08] VITALS (8 sets, daily range): BP systolic 118–145; BP diastolic 60–76; PULSE 62–98; RESP 18; TEMP 36.2–37.1; O2SAT 95–100
[2020-07-08 06:53] LABS: INR 1.3
[2020-07-08 07:13] LABS: Hematocrit 37.4 % (42.0-52.0); Hemoglobin 12.6 g/dL (14.0-18.0); Immature Granulocyte Absolute 0.04 K/mm3 (0.00-0.031); Immature Granulocyte Percent A 0.9 % (0-0.5); Lymphocytes Absolute Auto 0.59 K/mm3 (0.9-3.2); Lymphocytes Percent Auto 13.2 % (18.3-44.2); Mean Corpuscular HGB Conc 33.7 g/dl (32-36); Mean Corpuscular Hemoglobin 28.7 pg (26-34); Mean Corpuscular Volume 85.2 fl (80-100); Mean Platelet Volume 11.2 fl (7.4-10.4); Monocytes Absolute Auto 0.5 K/mm3 (0.1-0.6); Monocytes Percent Auto 10.3 % (2.6-8.5); Neutrophils Absolute Auto 3.4 K/mm3 (1.3-6.7); Neutrophils Percent Auto 75.6 % (45.5-73.1); Platelet Count Result 238 k/mm3 (150-375); Red Blood Count 4.39 M/mm3 (4.6-6.20); Red Cell Distribution Width 14.1 % (11.5-14.5); White Blood Count 4.5 K/mm3 (4.5-10.0)
[2020-07-08] MEDS: ALBUTEROL SULFATE (*SP) AEROSOL 1 PUFF 6 PUFF INHALATION ×4 (08:30→21:07)
[2020-07-08] MEDS: amLODIPine BESYLATE 5 MG TABLET 10 MG PO ×2 (08:31→16:47)
[2020-07-08] MEDS: VENLAFAXINE HCL XR 75 MG CAP.ER.24H 150 MG PO (08:31)
[2020-07-08] MEDS: ASPIRIN 81 MG CHEWABLE TABLET PO (08:31)
[2020-07-08] MEDS: POTASSIUM CHLORIDE 20 MEQ TABLET.ER PO (08:31)
[2020-07-08] MEDS: ASCORBIC ACID 500 MG TABLET PO (08:31)
[2020-07-08] MEDS: clonazePAM (*CRX) 0.25 MG TABLET PO ×2 (08:32→16:39)
[2020-07-08] MEDS: ATORVASTATIN 40 MG TABLET PO (08:32)
[2020-07-08] MEDS: CHOLECALCIFEROL 1,000 UNITS TABLET 2000 UNITS PO (08:32)
[2020-07-08] MEDS: CYANOCOBALAMIN 1,000 MCG TABLET 2000 MCG PO (08:33)
[2020-07-08] MEDS: DOCUSATE SODIUM 100 MG CAPSULE PO (08:33)
[2020-07-08] MEDS: DEXAMETHASONE SOD PHOS INJ 4 MG/ML VIAL 6 MG IV PUSH (08:33)
[2020-07-08] MEDS: ENOXAPARIN 80 MG/0.8 ML SYRINGE 150 MG SUB-Q (08:33)
[2020-07-08] MEDS: FENOFIBRATE 160 MG TABLET PO (08:34)
[2020-07-08] MEDS: GABAPENTIN 300 MG CAPSULE PO ×2 (08:34→16:47)
[2020-07-08] MEDS: MAGNESIUM OXIDE 200 MG TABLET PO ×2 (08:34→16:47)
[2020-07-08] MEDS: ISOSORBIDE MONONITRATE 30 MG TAB.ER.24H PO (08:34)
[2020-07-08] MEDS: PANTOPRAZOLE 40 MG TABLET PO (08:35)
[2020-07-08] MEDS: PSYLLIUM POWDER PACKET 1 PACKET BY MOUTH ×2 (08:35→16:48)
[2020-07-08] MEDS: PRAZOSIN HCL 1 MG CAPSULE 2 MG PO (08:35)
[2020-07-08] MEDS: OMEGA 3 POLYUNSAT FATTY ACIDS 1 GM CAP 2 GM PO ×2 (08:35→16:48)
[2020-07-08] MEDS: SOTALOL HCL 80 MG TABLET PO ×2 (08:35→16:48)
[2020-07-08] MEDS: PREGABALIN (*CRX) 50 MG CAPSULE 100 MG PO ×2 (08:35→17:12)
[2020-07-08] MEDS: polyethylene glycoL 3350 17 GM POWD.PACK PO (08:35)
[2020-07-08] MEDS: HYDROcodone/acetaminophen (*CRX) 10-325 MG TABLET 1 TAB PO ×2 (08:36→16:53)
[2020-07-08] MEDS: TOPIRAMATE 100 MG TABLET PO ×2 (08:36→16:48)
--- NOTE | 2020-07-08 15:00 | PM.IMPN ---
Progress Note: A&P Assessment and Plan (1) COVID-19: Code(s): U07.1 - COVID-19 Status: Acute Assessment and Plan: 07/08/20 15:00 Patient is 60-year-old male with history of hypertension atrial fibrillation had a cardioversion now in sinus rhythm, for which patient is taking warfarin and subtherapeutic, patient was diagnosed with COVID-19 were 1 week ago presented emergency department with a complaint of shortness and chest pain described as a pleuritic, and also had a low-grade fever but did not require any oxygen, to further evaluate patient had a CTA of the chest does not show any pulmonary emboli but does have pneumonia patient started on Zosyn and doxycycline, patient started on dexamethasone for COVID-19 however patient does not qualify for Remdesivir as patient is not needing high-flow oxygen, patient also has a history of hypertension and elevated blood pressure patient states that he has been taking his medication, he have resumed patient's home medication, currently patient states feeling little better compared to when he arrived, will continue to monitor patient with repeat checks x-ray in today if there is improvement in pneumonia, patient is not requiring high-flow oxygen and no fever will discharge the patient home today patient blood pressure is trending down, he does not have fever and requiring only 2 L oxygen NC however chest x-ray is showing progression of patchy bilateral airspace disease, compatible with pneumonia. Etiology uncertain possibly COVID pneumonia or community-acquired pneumonia will start the patient on Rocephin and doxycycline will continue to monitor the patient and further recommendation to follow, Patient with history of AFib for which patient is taking warfarin however his INR is subtherapeutic will switch over patient to Eliquis 5 mg b.i.d. (2) Hypertension: Code(s): I10 - Essential (primary) hypertension Status: Chronic Assessment and Plan: I am not sure if the patient is taking his home medications. But will having difficulty controlling his blood pressure at this time. His side hydralazine clonidine and labetalol. Will continue his home medications as soon as they are reviewed. Continue with his metoprolol and Minipress (3) Migraines: Code(s): G43.909 - Migraine, unspecified, not intractable, without status migrainosus Status: Chronic Assessment and Plan: I did order Toradol for the patient the Tylenol did not help any he takes naproxen at home. He is allergic to Imitrex. Continue with ice packs as well. Continue with topiramate (4) Peripheral neuropathy: Code(s): G62.9 - Polyneuropathy, unspecified Status: Chronic Assessment and Plan: The patient is on Lyrica at home. (5) Anxiety: Code(s): F41.9 - Anxiety disorder, unspecified Status: Chronic Assessment and Plan: The patient has PTSD and is on Lyrica and Seroquel home. (6) Depression: Code(s): F32.9 - Major depressive disorder, single episode, unspecified Status: Chronic Assessment and Plan: Continue with Effexor (7) Fibromyalgia: Code(s): M79.7 - Fibromyalgia Status: Chronic Assessment and Plan: Continue with Lyrica and gabapentin (8) Hyperlipidemia: Code(s): E78.5 - Hyperlipidemia, unspecified Status: Chronic (9) Sleep apnea: Code(s): G47.30 - Sleep apnea, unspecified Status: Chronic Assessment and Plan: I am just going to put the patient on some oxygen tonight is were not able to use the CPAP machine because of his COVID. (10) Rheumatoid arthritis: Code(s): M06.9 - Rheumatoid arthritis, unspecified Status: Chronic Assessment and Plan: Continue with his home medications if able. He is on naproxen and Arava (11) A-fib: Code(s): I48.91 - Unspecified atrial fibrillation Status: Acute Assessment and Plan: Patient has been cardioverted
[2020-07-08] MEDS: LATANOPROST 0.005% OP SOLN 2.5 ML BTL 1 DROP EACH EYE (21:07)
[2020-07-08] MEDS: QUEtiapine FUMARATE 100 MG TABLET 600 MG PO (21:08)
[2020-07-08] MEDS: APIXABAN 5 MG TABLET PO (21:08)
[2020-07-08] MEDS: DOXEPIN HCL 25 MG CAPSULE PO (21:08)
[2020-07-08] MEDS: HYDROmorphone HCL INJ (*CRX) 1 MG/ML SYR IV PUSH (21:14)
[2020-07-09] VITALS (9 sets, daily range): BP systolic 110–176; BP diastolic 55–93; PULSE 74–86; RESP 16–24; TEMP 37.2–38.2; O2SAT 94–96
[2020-07-09] MEDS: guaiFENesin/DEXTROMETHORPHAN 10 ML UDC PO (02:17)
[2020-07-09 06:54] LABS: Hematocrit 37.4 % (42.0-52.0); Hemoglobin 12.8 g/dL (14.0-18.0); Immature Granulocyte Absolute 0.04 K/mm3 (0.00-0.031); Immature Granulocyte Percent A 0.7 % (0-0.5); Lymphocytes Absolute Auto 0.65 K/mm3 (0.9-3.2); Lymphocytes Percent Auto 10.9 % (18.3-44.2); Mean Corpuscular HGB Conc 34.2 g/dl (32-36); Mean Corpuscular Hemoglobin 28.9 pg (26-34); Mean Corpuscular Volume 84.4 fl (80-100); Mean Platelet Volume 11.5 fl (7.4-10.4); Monocytes Absolute Auto 0.6 K/mm3 (0.1-0.6); Monocytes Percent Auto 9.8 % (2.6-8.5); Neutrophils Absolute Auto 4.7 K/mm3 (1.3-6.7); Neutrophils Percent Auto 78.6 % (45.5-73.1); Platelet Count Result 240 k/mm3 (150-375); Red Blood Count 4.43 M/mm3 (4.6-6.20); Red Cell Distribution Width 13.9 % (11.5-14.5)
[2020-07-09 07:01] LABS: INR 1.4
[2020-07-09] MEDS: ALBUTEROL SULFATE (*SP) AEROSOL 1 PUFF 6 PUFF INHALATION ×4 (08:53→20:56)
[2020-07-09] MEDS: DEXAMETHASONE SOD PHOS INJ 4 MG/ML VIAL 6 MG IV PUSH (08:54)
[2020-07-09] MEDS: ASPIRIN 81 MG CHEWABLE TABLET PO (08:55)
[2020-07-09] MEDS: POTASSIUM CHLORIDE 20 MEQ TABLET.ER PO (08:55)
[2020-07-09] MEDS: VENLAFAXINE HCL XR 75 MG CAP.ER.24H 150 MG PO (08:55)
[2020-07-09] MEDS: ASCORBIC ACID 500 MG TABLET PO (08:56)
[2020-07-09] MEDS: ATORVASTATIN 40 MG TABLET PO (08:56)
[2020-07-09] MEDS: amLODIPine BESYLATE 5 MG TABLET 10 MG PO ×2 (08:56→17:02)
[2020-07-09] MEDS: CHOLECALCIFEROL 1,000 UNITS TABLET 2000 UNITS PO (08:56)
[2020-07-09] MEDS: APIXABAN 5 MG TABLET PO ×2 (08:56→20:53)
[2020-07-09] MEDS: GABAPENTIN 300 MG CAPSULE PO ×2 (08:57→17:02)
[2020-07-09] MEDS: FENOFIBRATE 160 MG TABLET PO (08:57)
[2020-07-09] MEDS: DOCUSATE SODIUM 100 MG CAPSULE PO (08:57)
[2020-07-09] MEDS: clonazePAM (*CRX) 0.25 MG TABLET PO ×2 (08:57→17:02)
[2020-07-09] MEDS: CYANOCOBALAMIN 1,000 MCG TABLET 2000 MCG PO (08:57)
[2020-07-09] MEDS: ISOSORBIDE MONONITRATE 30 MG TAB.ER.24H PO (08:57)
[2020-07-09] MEDS: PANTOPRAZOLE 40 MG TABLET PO (08:58)
[2020-07-09] MEDS: MAGNESIUM OXIDE 200 MG TABLET PO ×2 (08:58→17:02)
[2020-07-09] MEDS: polyethylene glycoL 3350 17 GM POWD.PACK PO (08:58)
[2020-07-09] MEDS: OMEGA 3 POLYUNSAT FATTY ACIDS 1 GM CAP 2 GM PO ×2 (08:58→17:02)
[2020-07-09] MEDS: SOTALOL HCL 80 MG TABLET PO ×2 (08:59→17:03)
[2020-07-09] MEDS: PREGABALIN (*CRX) 50 MG CAPSULE 100 MG PO ×2 (08:59→17:02)
[2020-07-09] MEDS: PSYLLIUM POWDER PACKET 1 PACKET BY MOUTH ×2 (08:59→17:03)
[2020-07-09] MEDS: TOPIRAMATE 100 MG TABLET PO ×2 (08:59→17:03)
[2020-07-09] MEDS: PRAZOSIN HCL 1 MG CAPSULE 2 MG PO (08:59)
[2020-07-09] MEDS: HYDROcodone/acetaminophen (*CRX) 10-325 MG TABLET 1 TAB PO ×2 (09:59→17:39)
--- NOTE | 2020-07-09 15:17 | PM.IMPN ---
Progress Note: A&P Assessment and Plan (1) COVID-19: Code(s): U07.1 - COVID-19 Status: Acute Assessment and Plan: 07/09/20 15:17 Patient is 60-year-old male with history of hypertension atrial fibrillation had a cardioversion now in sinus rhythm, for which patient is taking warfarin and subtherapeutic, patient was diagnosed with COVID-19 were 1 week ago presented emergency department with a complaint of shortness and chest pain described as a pleuritic, and also had a low-grade fever but did not require any oxygen, to further evaluate patient had a CTA of the chest does not show any pulmonary emboli but does have pneumonia patient started on Zosyn and doxycycline, patient started on dexamethasone for COVID-19 however patient does not qualify for Remdesivir as patient is not needing high-flow oxygen, patient also has a history of hypertension and elevated blood pressure patient states that he has been taking his medication, he have resumed patient's home medication, currently patient states feeling little better compared to when he arrived, will continue to monitor patient with repeat checks x-ray in today if there is improvement in pneumonia, patient is not requiring high-flow oxygen and no fever will discharge the patient home on 07/08 patient blood pressure was trending down, he does not have fever and requiring only 2 L oxygen NC however chest x-ray was showing progression of patchy bilateral airspace disease, compatible with pneumonia. Etiology uncertain possibly COVID pneumonia or community-acquired pneumonia started the patient on Zosyn and doxycycline, Patient with history of AFib for which patient is taking warfarin however his INR was subtherapeutic switched over patient to Eliquis 5 mg b.i.d. 07/09 today patient had a fever of 100.7, still requiring only 2 L of oxygen, patient is feeling much better not a short of breath as when he arrived, will continue to monitor the patient will repeat checks x-ray pneumonia and further recommendation to follow (2) Hypertension: Code(s): I10 - Essential (primary) hypertension Status: Chronic Assessment and Plan: I am not sure if the patient is taking his home medications. But will having difficulty controlling his blood pressure at this time. His side hydralazine clonidine and labetalol. Will continue his home medications as soon as they are reviewed. Continue with his metoprolol and Minipress (3) Migraines: Code(s): G43.909 - Migraine, unspecified, not intractable, without status migrainosus Status: Chronic Assessment and Plan: I did order Toradol for the patient the Tylenol did not help any he takes naproxen at home. He is allergic to Imitrex. Continue with ice packs as well. Continue with topiramate (4) Peripheral neuropathy: Code(s): G62.9 - Polyneuropathy, unspecified Status: Chronic Assessment and Plan: The patient is on Lyrica at home. (5) Anxiety: Code(s): F41.9 - Anxiety disorder, unspecified Status: Chronic Assessment and Plan: The patient has PTSD and is on Lyrica and Seroquel home. (6) Depression: Code(s): F32.9 - Major depressive disorder, single episode, unspecified Status: Chronic Assessment and Plan: Continue with Effexor (7) Fibromyalgia: Code(s): M79.7 - Fibromyalgia Status: Chronic Assessment and Plan: Continue with Lyrica and gabapentin (8) Hyperlipidemia: Code(s): E78.5 - Hyperlipidemia, unspecified Status: Chronic (9) Sleep apnea: Code(s): G47.30 - Sleep apnea, unspecified Status: Chronic Assessment and Plan: I am just going to put the patient on some oxygen tonight is were not able to use the CPAP machine because of his COVID. (10) Rheumatoid arthritis: Code(s): M06.9 - Rheumatoid arthritis, unspecified Status: Chronic Assessment and Plan: Continue with his home medications
[2020-07-09] MEDS: QUEtiapine FUMARATE 100 MG TABLET 600 MG PO (20:52)
[2020-07-09] MEDS: LATANOPROST 0.005% OP SOLN 2.5 ML BTL 1 DROP EACH EYE (20:54)
[2020-07-09] MEDS: DOXEPIN HCL 25 MG CAPSULE PO (20:54)
[2020-07-10] VITALS (11 sets, daily range): BP systolic 104–164; BP diastolic 54–91; PULSE 60–90; RESP 16–24; TEMP 36.3–37.5; O2SAT 86–98
[2020-07-10 06:13] LABS: Basophils Percent Auto 0.2 % (0.2-1.2); Hematocrit 38.5 % (42.0-52.0); Hemoglobin 13.2 g/dL (14.0-18.0); Immature Granulocyte Absolute 0.06 K/mm3 (0.00-0.031); Immature Granulocyte Percent A 1.2 % (0-0.5); Lymphocytes Absolute Auto 0.66 K/mm3 (0.9-3.2); Lymphocytes Percent Auto 13.7 % (18.3-44.2); Mean Corpuscular HGB Conc 34.3 g/dl (32-36); Mean Corpuscular Hemoglobin 28.4 pg (26-34); Mean Corpuscular Volume 82.8 fl (80-100); Mean Platelet Volume 11.3 fl (7.4-10.4); Monocytes Absolute Auto 0.4 K/mm3 (0.1-0.6); Monocytes Percent Auto 9.1 % (2.6-8.5); Neutrophils Absolute Auto 3.7 K/mm3 (1.3-6.7); Neutrophils Percent Auto 75.8 % (45.5-73.1); Platelet Count Result 275 k/mm3 (150-375); Red Blood Count 4.65 M/mm3 (4.6-6.20); Red Cell Distribution Width 14.2 % (11.5-14.5); White Blood Count 4.8 K/mm3 (4.5-10.0)
[2020-07-10 06:25] LABS: INR 1.2; Prothrombin Time 16.2 Seconds (11.1-14.7)
[2020-07-10] MEDS: amLODIPine BESYLATE 5 MG TABLET 10 MG PO ×2 (09:45→18:26)
[2020-07-10] MEDS: VENLAFAXINE HCL XR 75 MG CAP.ER.24H 150 MG PO (09:45)
[2020-07-10] MEDS: POTASSIUM CHLORIDE 20 MEQ TABLET.ER PO (09:45)
[2020-07-10] MEDS: ASPIRIN 81 MG CHEWABLE TABLET PO (09:45)
[2020-07-10] MEDS: ATORVASTATIN 40 MG TABLET PO (09:46)
[2020-07-10] MEDS: ASCORBIC ACID 500 MG TABLET PO (09:46)
[2020-07-10] MEDS: PANTOPRAZOLE 40 MG TABLET PO (09:46)
[2020-07-10] MEDS: DOCUSATE SODIUM 100 MG CAPSULE PO (09:46)
[2020-07-10] MEDS: FENOFIBRATE 160 MG TABLET PO (09:46)
[2020-07-10] MEDS: CHOLECALCIFEROL 1,000 UNITS TABLET 2000 UNITS PO (09:46)
[2020-07-10] MEDS: ISOSORBIDE MONONITRATE 30 MG TAB.ER.24H PO (09:46)
[2020-07-10] MEDS: OMEGA 3 POLYUNSAT FATTY ACIDS 1 GM CAP 2 GM PO ×2 (09:46→18:27)
[2020-07-10] MEDS: APIXABAN 5 MG TABLET PO ×2 (09:46→20:32)
[2020-07-10] MEDS: MAGNESIUM OXIDE 200 MG TABLET PO ×2 (09:46→18:27)
[2020-07-10] MEDS: clonazePAM (*CRX) 0.25 MG TABLET PO ×2 (09:46→18:27)
[2020-07-10] MEDS: CYANOCOBALAMIN 1,000 MCG TABLET 2000 MCG PO (09:46)
[2020-07-10] MEDS: TOPIRAMATE 100 MG TABLET PO ×2 (09:46→18:27)
[2020-07-10] MEDS: PRAZOSIN HCL 1 MG CAPSULE 2 MG PO (09:46)
[2020-07-10] MEDS: GABAPENTIN 300 MG CAPSULE PO ×2 (09:46→18:26)
[2020-07-10] MEDS: DEXAMETHASONE SOD PHOS INJ 4 MG/ML VIAL 6 MG IV PUSH (09:46)
[2020-07-10] MEDS: SOTALOL HCL 80 MG TABLET PO ×2 (09:47→18:27)
[2020-07-10] MEDS: ACETAMINOPHEN 500 MG TABLET 1000 MG PO (09:52)
[2020-07-10] MEDS: PREGABALIN (*CRX) 50 MG CAPSULE 100 MG PO ×2 (09:58→18:27)
[2020-07-10] MEDS: ALBUTEROL SULFATE (*SP) AEROSOL 1 PUFF 6 PUFF INHALATION ×4 (10:00→20:34)
--- NOTE | 2020-07-10 14:55 | PM.IMPN ---
Progress Note: A&P Assessment and Plan (1) COVID-19: Code(s): U07.1 - COVID-19 Status: Acute Assessment and Plan: 07/10/20 14:55 Patient is 60-year-old male with history of hypertension atrial fibrillation had a cardioversion now in sinus rhythm, for which patient is taking warfarin and subtherapeutic, patient was diagnosed with COVID-19 were 1 week ago presented emergency department with a complaint of shortness and chest pain described as a pleuritic, and also had a low-grade fever but did not require any oxygen, to further evaluate patient had a CTA of the chest does not show any pulmonary emboli but does have pneumonia patient started on Zosyn and doxycycline, patient started on dexamethasone for COVID-19 however patient does not qualify for Remdesivir as patient is not needing high-flow oxygen, patient also has a history of hypertension and elevated blood pressure patient states that he has been taking his medication, he have resumed patient's home medication, currently patient states feeling little better compared to when he arrived, will continue to monitor patient with repeat checks x-ray in today if there is improvement in pneumonia, patient is not requiring high-flow oxygen and no fever will discharge the patient home on 07/08 patient blood pressure was trending down, he does not have fever and requiring only 2 L oxygen NC however chest x-ray was showing progression of patchy bilateral airspace disease, compatible with pneumonia. Etiology uncertain possibly COVID pneumonia or community-acquired pneumonia started the patient on Zosyn and doxycycline, Patient with history of AFib for which patient is taking warfarin however his INR was subtherapeutic switched over patient to Eliquis 5 mg b.i.d. 07/09 today patient had a fever of 100.7, still requiring only 2 L of oxygen, patient is feeling much better not a short of breath as when he arrived, will continue to monitor the patient will repeat checks x-ray pneumonia and further recommendation to follow 07/10 today patient has low-grade fever states is feeling much better, requiring on E 1-2 L of oxygen, patient is on dexamethasone 10/10, patient x-ray still shows persistent pneumonia I suspect most likely secondary to COVID-19, and secondary bacterial infection, will continue Rocephin and doxycycline as well as patient also has a component of pulmonary edema will start the patient on low-dose of IV Lasix, will continue to monitor the patient patient is encouraged to participate in PT OT, the checks x-ray on Monday and possibly discharge the patient home (2) Hypertension: Code(s): I10 - Essential (primary) hypertension Status: Chronic Assessment and Plan: I am not sure if the patient is taking his home medications. But will having difficulty controlling his blood pressure at this time. His side hydralazine clonidine and labetalol. Will continue his home medications as soon as they are reviewed. Continue with his metoprolol and Minipress (3) Migraines: Code(s): G43.909 - Migraine, unspecified, not intractable, without status migrainosus Status: Chronic Assessment and Plan: I did order Toradol for the patient the Tylenol did not help any he takes naproxen at home. He is allergic to Imitrex. Continue with ice packs as well. Continue with topiramate (4) Peripheral neuropathy: Code(s): G62.9 - Polyneuropathy, unspecified Status: Chronic Assessment and Plan: The patient is on Lyrica at home. (5) Anxiety: Code(s): F41.9 - Anxiety disorder, unspecified Status: Chronic Assessment and Plan: The patient has PTSD and is on Lyrica and Seroquel home. (6) Depression: Code(s): F32.9 - Major depressive disorder, single episode, unspecified Status: Chronic Assessment and Plan: Continue with Effexor (7) Fibromyalgia: Code(s): M79.7 - Fibromyalgia Status: Chronic Assessment
[2020-07-10] MEDS: FUROSEMIDE INJ 40 MG/4 ML VIAL IV PUSH (15:31)
[2020-07-10] MEDS: DOXEPIN HCL 25 MG CAPSULE PO (20:32)
[2020-07-10] MEDS: QUEtiapine FUMARATE 100 MG TABLET 600 MG PO (20:32)
[2020-07-10] MEDS: LATANOPROST 0.005% OP SOLN 2.5 ML BTL 1 DROP EACH EYE (20:33)
[2020-07-11] VITALS (11 sets, daily range): BP systolic 110–143; BP diastolic 55–74; PULSE 65–88; RESP 18–20; TEMP 36.2–37.6; O2SAT 95–99
[2020-07-11 06:34] LABS: Basophils Percent Auto 0.1 % (0.2-1.2); Hemoglobin 13.3 g/dL (14.0-18.0); Immature Granulocyte Absolute 0.06 K/mm3 (0.00-0.031); Immature Granulocyte Percent A 0.9 % (0-0.5); Lymphocytes Absolute Auto 0.52 K/mm3 (0.9-3.2); Lymphocytes Percent Auto 7.6 % (18.3-44.2); Mean Corpuscular HGB Conc 34.1 g/dl (32-36); Mean Corpuscular Hemoglobin 28.7 pg (26-34); Mean Corpuscular Volume 84.1 fl (80-100); Mean Platelet Volume 10.9 fl (7.4-10.4); Monocytes Absolute Auto 0.6 K/mm3 (0.1-0.6); Monocytes Percent Auto 9.2 % (2.6-8.5); Neutrophils Absolute Auto 5.6 K/mm3 (1.3-6.7); Neutrophils Percent Auto 82.2 % (45.5-73.1); Platelet Count Result 294 k/mm3 (150-375); Red Blood Count 4.64 M/mm3 (4.6-6.20); Red Cell Distribution Width 14.2 % (11.5-14.5); White Blood Count 6.8 K/mm3 (4.5-10.0)
[2020-07-11 06:41] LABS: INR 1.2; Prothrombin Time 15.6 Seconds (11.1-14.7)
[2020-07-11] MEDS: APIXABAN 5 MG TABLET PO ×2 (08:34→20:00)
[2020-07-11] MEDS: MAGNESIUM OXIDE 200 MG TABLET PO ×2 (08:34→17:22)
[2020-07-11] MEDS: ASPIRIN 81 MG CHEWABLE TABLET PO (08:34)
[2020-07-11] MEDS: OMEGA 3 POLYUNSAT FATTY ACIDS 1 GM CAP 2 GM PO ×2 (08:34→17:21)
[2020-07-11] MEDS: SOTALOL HCL 80 MG TABLET PO ×2 (08:35→17:22)
[2020-07-11] MEDS: guaiFENesin/DEXTROMETHORPHAN 10 ML UDC PO ×2 (08:36→16:18)
[2020-07-11] MEDS: CHOLECALCIFEROL 1,000 UNITS TABLET 2000 UNITS PO (08:36)
[2020-07-11] MEDS: GABAPENTIN 300 MG CAPSULE PO ×2 (08:36→17:22)
[2020-07-11] MEDS: amLODIPine BESYLATE 5 MG TABLET 10 MG PO ×2 (08:37→17:21)
[2020-07-11] MEDS: DEXAMETHASONE SOD PHOS INJ 4 MG/ML VIAL 6 MG IV PUSH (08:37)
[2020-07-11] MEDS: ISOSORBIDE MONONITRATE 30 MG TAB.ER.24H PO (08:37)
[2020-07-11] MEDS: TOPIRAMATE 100 MG TABLET PO ×2 (08:38→17:21)
[2020-07-11] MEDS: PANTOPRAZOLE 40 MG TABLET PO (08:38)
[2020-07-11] MEDS: ASCORBIC ACID 500 MG TABLET PO (08:38)
[2020-07-11] MEDS: CYANOCOBALAMIN 1,000 MCG TABLET 2000 MCG PO (08:38)
[2020-07-11] MEDS: POTASSIUM CHLORIDE 20 MEQ TABLET.ER PO (08:38)
[2020-07-11] MEDS: VENLAFAXINE HCL XR 75 MG CAP.ER.24H 150 MG PO (08:38)
[2020-07-11] MEDS: ATORVASTATIN 40 MG TABLET PO (08:38)
[2020-07-11] MEDS: FENOFIBRATE 160 MG TABLET PO (08:39)
[2020-07-11] MEDS: clonazePAM (*CRX) 0.25 MG TABLET PO ×2 (08:42→17:22)
[2020-07-11] MEDS: PREGABALIN (*CRX) 50 MG CAPSULE 100 MG PO ×2 (08:42→17:22)
[2020-07-11] MEDS: FUROSEMIDE INJ 40 MG/4 ML VIAL IV PUSH (08:47)
[2020-07-11] MEDS: ALBUTEROL SULFATE (*SP) AEROSOL 1 PUFF 6 PUFF INHALATION ×4 (09:15→20:00)
[2020-07-11] MEDS: PRAZOSIN HCL 1 MG CAPSULE 2 MG PO (12:48)
--- NOTE | 2020-07-11 13:34 | P.PNIM_ITS ---
Progress Note: A&P Assessment and Plan (1) COVID-19: Code(s): U07.1 - COVID-19 Status: Acute Assessment and Plan: 07/11/20 13:34 Patient is 60-year-old male with history of hypertension atrial fibrillation had a cardioversion now in sinus rhythm, for which patient is taking warfarin and subtherapeutic, patient was diagnosed with COVID-19 were 1 week ago presented emergency department with a complaint of shortness and chest pain described as a pleuritic, and also had a low-grade fever but did not require any oxygen, to further evaluate patient had a CTA of the chest does not show any pulmonary emboli but does have pneumonia patient started on Zosyn and doxycycline, patient started on dexamethasone for COVID-19 however patient does not qualify for Remdesivir as patient is not needing high-flow oxygen, patient also has a history of hypertension and elevated blood pressure patient states that he has been taking his medication, he have resumed patient's home medication, currently patient states feeling little better compared to when he arrived, will continue to monitor patient with repeat checks x-ray in today if there is improvement in pneumonia, patient is not requiring high-flow oxygen and no fever will discharge the patient home on 07/08 patient blood pressure was trending down, he does not have fever and requiring only 2 L oxygen NC however chest x-ray was showing progression of patc hy bilateral airspace disease, compatible with pneumonia. Etiology uncertain possibly COVID pneumonia or community-acquired pneumonia started the patient on Zosyn and doxycycline, Patient with history of AFib for which patient is taking warfarin however his INR was subtherapeutic switched over patient to Eliquis 5 mg b.i.d. 07/09 today patient had a fever of 100.7, still requiring only 2 L of oxygen, patient is feeling much better not a short of breath as when he arrived, will continue to monitor the patient will repeat checks x-ray pneumonia and further recommendation to follow 07/10 today patient has low-grade fever states is feeling much better, requiring on E 1-2 L of oxygen, patient is on dexamethasone 10/10, patient x-ray still shows persistent pneumonia I suspect most likely secondary to COVID-19, and secondary bacterial infection, will continue Rocephin and doxycycline as well as patient also has a component of pulmonary edema will start the patient on low- dose of IV Lasix, will continue to monitor the patient patient is encouraged to participate in PT OT, the checks x-ray on Monday and possibly discharge the patient home. 07/11 today patient has been afebrile and on room air at rest and requiring 2 L of oxygen with exertion, complains of cough but denies any shortness of breath fever or chills, on dexamethasone 11/09, will repeat chest x-ray in the morning, will continue present management will continue to monitor, and further recommendation to follow. (2) Hypertension: Code(s): I10 - Essential (primary) hypertension Status: Chronic Assessment and Plan: I am not sure if the patient is taking his home medications. But will having difficulty controlling his blood pressure at this time. His side hydralazine clonidine and labetalol. Will continue his home medications as soon as they are reviewed. Continue with his metoprolol and Minipress (3) Migraines: Code(s): G43.909 - Migraine, unspecified, not intractable, without status migrainosus Status: Chronic Assessment and Plan: I did order Toradol for the patient the Tylenol did not help any he takes n aproxen at home. He is allergic to Imitrex. Continue with ice packs as well. Continue with topiramate (4) Peripheral neuropathy:
[2020-07-11] MEDS: HYDROcodone/acetaminophen (*CRX) 10-325 MG TABLET 1 TAB PO (16:17)
[2020-07-11] MEDS: LATANOPROST 0.005% OP SOLN 2.5 ML BTL 1 DROP EACH EYE (20:00)
[2020-07-11] MEDS: QUEtiapine FUMARATE 100 MG TABLET 600 MG PO (20:00)
[2020-07-11] MEDS: DOXEPIN HCL 25 MG CAPSULE PO (20:00)
[2020-07-12] VITALS (9 sets, daily range): BP systolic 110–140; BP diastolic 62–74; PULSE 72–84; RESP 18–20; TEMP 36.6–37.4; O2SAT 94–98
[2020-07-12 06:45] LABS: Basophils Percent Auto 0.1 % (0.2-1.2); Hematocrit 38.1 % (42.0-52.0); Hemoglobin 12.8 g/dL (14.0-18.0); Immature Granulocyte Absolute 0.05 K/mm3 (0.00-0.031); Immature Granulocyte Percent A 0.7 % (0-0.5); Lymphocytes Percent Auto 9.8 % (18.3-44.2); Mean Corpuscular HGB Conc 33.6 g/dl (32-36); Mean Corpuscular Volume 83.4 fl (80-100); Mean Platelet Volume 10.9 fl (7.4-10.4); Monocytes Absolute Auto 0.7 K/mm3 (0.1-0.6); Monocytes Percent Auto 9.4 % (2.6-8.5); Neutrophils Absolute Auto 5.7 K/mm3 (1.3-6.7); Platelet Count Result 326 k/mm3 (150-375); Red Blood Count 4.57 M/mm3 (4.6-6.20); Red Cell Distribution Width 14.1 % (11.5-14.5); White Blood Count 7.1 K/mm3 (4.5-10.0)
[2020-07-12] MEDS: guaiFENesin/DEXTROMETHORPHAN 10 ML UDC PO (06:54)
[2020-07-12 07:40] LABS: INR 1.2; Prothrombin Time 15.8 Seconds (11.1-14.7)
[2020-07-12] MEDS: PRAZOSIN HCL 1 MG CAPSULE 2 MG PO (08:26)
[2020-07-12] MEDS: PREGABALIN (*CRX) 50 MG CAPSULE 100 MG PO ×2 (08:26→16:48)
[2020-07-12] MEDS: TOPIRAMATE 100 MG TABLET PO ×2 (08:26→16:52)
[2020-07-12] MEDS: clonazePAM (*CRX) 0.25 MG TABLET PO ×2 (08:26→16:48)
[2020-07-12] MEDS: ASCORBIC ACID 500 MG TABLET PO (08:26)
[2020-07-12] MEDS: amLODIPine BESYLATE 5 MG TABLET 10 MG PO ×2 (08:26→16:49)
[2020-07-12] MEDS: CHOLECALCIFEROL 1,000 UNITS TABLET 2000 UNITS PO (08:27)
[2020-07-12] MEDS: OMEGA 3 POLYUNSAT FATTY ACIDS 1 GM CAP 2 GM PO ×2 (08:27→16:50)
[2020-07-12] MEDS: VENLAFAXINE HCL XR 75 MG CAP.ER.24H 150 MG PO (08:27)
[2020-07-12] MEDS: CYANOCOBALAMIN 1,000 MCG TABLET 2000 MCG PO (08:28)
[2020-07-12] MEDS: POTASSIUM CHLORIDE 20 MEQ TABLET.ER PO (08:28)
[2020-07-12] MEDS: ISOSORBIDE MONONITRATE 30 MG TAB.ER.24H PO (08:28)
[2020-07-12] MEDS: ATORVASTATIN 40 MG TABLET PO (08:28)
[2020-07-12] MEDS: PANTOPRAZOLE 40 MG TABLET PO (08:28)
[2020-07-12] MEDS: ASPIRIN 81 MG CHEWABLE TABLET PO (08:28)
[2020-07-12] MEDS: APIXABAN 5 MG TABLET PO (08:28)
[2020-07-12] MEDS: GABAPENTIN 300 MG CAPSULE PO ×2 (08:28→16:50)
[2020-07-12] MEDS: MAGNESIUM OXIDE 200 MG TABLET PO ×2 (08:28→16:50)
[2020-07-12] MEDS: SOTALOL HCL 80 MG TABLET PO ×2 (08:29→16:51)
[2020-07-12] MEDS: FENOFIBRATE 160 MG TABLET PO (08:29)
[2020-07-12] MEDS: FUROSEMIDE INJ 40 MG/4 ML VIAL IV PUSH (08:30)
[2020-07-12] MEDS: ALBUTEROL SULFATE (*SP) AEROSOL 1 PUFF 6 PUFF INHALATION ×3 (08:31→16:48)
[2020-07-12] MEDS: DEXAMETHASONE SOD PHOS INJ 4 MG/ML VIAL 6 MG IV PUSH (08:31)
[2020-07-12 09:58] LABS: Anion Gap 9 mmol/L (8-16); Blood Urea Nitrogen 25 mg/dL (9-20); Calcium 8.8 mg/dL (8.4-10.2); Carbon Dioxide 25 mmol/L (22-30); Chloride 101 mmol/L (98-107); Estimated CRCL calculation 83 ml/min; Estimated Glomerular Filt Rate 56; Glucose 91 mg/dL (75-110); Magnesium 1.8 mg/dL (1.6-2.3); Potassium 3.7 mmol/L (3.4-5.0); Sodium 135 mmol/L (137-145)
--- NOTE | 2020-07-12 16:16 | PM.DS ---
DS: Admitting Diagnosis Admitting Diagnosis Admitting Diagnosis: Chief Complaint: Shortness of breath DS: Discharge Diagnosis Discharge Diagnosis (1) COVID-19: Code(s): U07.1 - COVID-19 Status: Acute Assessment and Plan: 07/11/20 13:34 Patient is 60-year-old male with history of hypertension atrial fibrillation had a cardioversion now in sinus rhythm, for which patient is taking warfarin and subtherapeutic, patient was diagnosed with COVID-19 were 1 week ago presented emergency department with a complaint of shortness and chest pain described as a pleuritic, and also had a low-grade fever but did not require any oxygen, to further evaluate patient had a CTA of the chest does not show any pulmonary emboli but does have pneumonia patient started on Zosyn and doxycycline, patient started on dexamethasone for COVID-19 however patient does not qualify for Remdesivir as patient is not needing high-flow oxygen, patient also has a history of hypertension and elevated blood pressure patient states that he has been taking his medication, he have resumed patient's home medication, currently patient states feeling little better compared to when he arrived, will continue to monitor patient with repeat checks x-ray in today if there is improvement in pneumonia, patient is not requiring high-flow oxygen and no fever will discharge the patient home on 07/08 patient blood pressure was trending down, he does not have fever and requiring only 2 L oxygen NC however chest x-ray was showing progression of patchy bilateral airspace disease, compatible with pneumonia. Etiology uncertain possibly COVID pneumonia or community-acquired pneumonia started the patient on Zosyn and doxycycline, Patient with history of AFib for which patient is taking warfarin however his INR was subtherapeutic switched over patient to Eliquis 5 mg b.i.d. 07/09 today patient had a fever of 100.7, still requiring only 2 L of oxygen, patient is feeling much better not a short of breath as when he arrived, will continue to monitor the patient will repeat checks x-ray pneumonia and further recommendation to follow 07/10 today patient has low-grade fever states is feeling much better, requiring on E 1-2 L of oxygen, patient is on dexamethasone 10/10, patient x-ray still shows persistent pneumonia I suspect most likely secondary to COVID-19, and secondary bacterial infection, will continue Rocephin and doxycycline as well as patient also has a component of pulmonary edema will start the patient on low-dose of IV Lasix, will continue to monitor the patient patient is encouraged to participate in PT OT, the checks x-ray on Monday and possibly discharge the patient home. 07/11 today patient has been afebrile and on room air at rest and requiring 2 L of oxygen with exertion, complains of cough but denies any shortness of breath fever or chills, on dexamethasone 11/09, will repeat chest x-ray in the morning, will continue present management will continue to monitor, and further recommendation to follow. (2) Hypertension: Code(s): I10 - Essential (primary) hypertension Status: Chronic Assessment and Plan: I am not sure if the patient is taking his home medications. But will having difficulty controlling his blood pressure at this time. His side hydralazine clonidine and labetalol. Will continue his home medications as soon as they are reviewed. Continue with his metoprolol and Minipress (3) Migraines: Code(s): G43.909 - Migraine, unspecified, not intractable, without status migrainosus Status: Chronic Assessment and Plan: I did order Toradol for the patient the Tylenol did not help any he takes naproxen at home. He is allergic to Imitrex. Continue with ice packs as well. Continue with topiramate (4) Peripheral neuropathy: Code(s): G62.9 - Polyneuropathy, unspecified Status: Chronic Assessment and Plan: The patient is on Lyrica at home
--- NOTE | 2020-07-12 16:25 | PCRCNOTE ---
Home oxygen evaluation complete; Pt. does not require home oxygen. Dr. Bey and Mira. both notified of the results.
== END 2020-07-12 17:20 | disposition home or self-care (01) | DRG 177 ==
LOC: ANHED 12:51 → ANH3MEDSUR 17:49
PROVIDERS: Nurse Practitioner; Admitting Provider Internal Medicine; Emergency Provider General Practice; Visit Provider Family Medicine
DX: U07.1 COVID-19 (principal); J12.82 Pneumonia due to coronavirus disease 2019; F41.8 Other specified anxiety disorders; G62.9 Polyneuropathy, unspecified; M79.7 Fibromyalgia; E78.5 Hyperlipidemia, unspecified; G47.30 Sleep apnea, unspecified; M06.9 Rheumatoid arthritis, unspecified; I48.91 Unspecified atrial fibrillation; I10 Essential (primary) hypertension; G43.909 Migraine, unspecified, not intractable, without status migrainosus
CPT/HCPCS: 36415; 36600; 70450; 71045; 71275; 80048; 80053; 82375; 82805; 83050; 83735; 83880; 84484; 85025; 85380; 85610; 85730; 86140; 93005; 94618; 94640; 96361; 96365; 96372; 96375; 96376; 99285; A9270; G0378; J0131; J0360; J0696; J1100; J1170; J1650; J1940; J2060; J2270; J2405; J2543; J7040; Q9967

== ENCOUNTER 2021-04-05 04:46 | Observation (INO) | payer MEDICARE, BC, SELFPAY ==
[2021-04-05] VITALS (39 sets, daily range): BP systolic 126–170; BP diastolic 64–103; PULSE 60–91; RESP 9–24; TEMP 36.1–36.8; O2SAT 94–99; BMI 41.8
--- NOTE | ~2021-04-05 | XR_ITS ---
EXAMINATION: XR chest 1V portable DATE: 04/05/2021 06:09 INDICATION: Mid to left-sided chest pain TECHNIQUE: frontal view of the chest was obtained. COMPARISON: Chest radiograph dated 07/10/2020 FINDINGS: Lungs are now clear with no focal airspace opacities, pulmonary edema, pleural effusion or pneumothor ax. The cardiomediastinal silhouette is normal. Left pectoral implant the surveillance monitor. Partially visualized right total shoulder arthroplasty. IMPRESSION: 1. No acute cardiopulmonary disease. Reviewed, dictated and finalized at location B.
--- NOTE | ~2021-04-05 | CT_ITS ---
EXAMINATION: CT abdomen pelvis w con DATE: 04/05/2021 06:21 INDICATION: Abdominal pain TECHNIQUE: Computed tomography (CT) of the abdomen and pelvis was performed with 100 mL Omnipaque-350 intravenous contrast. Automated exposure control and iterative reconstruction technique were employe d. The dose-length product was 1767.95 mGy-cm. COMPARISON: CT dated 05/14/2020 and 11/07/2017 and renal ultrasound dated 05/15/2020 FINDINGS: Minimal right basilar atelectasis. Heart size is normal. No pericardial or pleural effusion. Diffuse hepatic steatosis. Cholecystectomy clips at the gallbladder fossa. Couple splenic calcific lesions co nsistent with old granulomatous disease. Pancreas and right adrenal gland are normal. 7 mm left adren al nodule unchanged from noncontrast CT dated 11/07/2017 consistent with an adenoma. Bilateral renal cy sts, the largest on the right and likely proteinaceous/hemorrhagic cyst measuring 2.2 cm in maximal d iameter with characteristic anechoic appearance on prior ultrasound. 3-4 mm nonobstructing left renal stone. No stones in the right kidney or along the normal bilateral ureters. No hydronephrosis. Bladd er is normal. Diverticulum along the sigmoid colon without adjacent inflammatory change to suggest di verticulitis. Small bowel and appendix are normal. IMPRESSION: 1. No acute intra-abdominal/pelvic process. 2. 3-4 mm nonobstructing left renal stone. 3. Diffuse hepatic steatosis. Reviewed, dictated and finalized at location B.
--- NOTE | 2021-04-05 04:49 | ECG_ITS ---
Measurements Intervals [place] Rate: 80 P: 37 CO: 128 QRS: 10 QRSD: 110 T: 29 QT: 393 QTc: 455 Interpretive Statements SINUS RHYTHM BASELINE WANDER- II, AVL, AVF NORMAL ECG Electronically Signed On 04-05-2021 15:25:28 CDT by Chano Villagomez D.O.
--- NOTE | 2021-04-05 04:59 | ED.CHESTPAIN ---
HPI - Chest Pain General Chief Complaint: Chest Pain Stated Complaint: Chest pain, sob Time Seen by Provider: 04/05/21 04:49 Source: RN notes reviewed History of Present Illness HPI narrative: Patient presents emergency department from home for chest pain. Patient states pain began a day and a half ago the pain is located over the left lower chest does not radiate states this feels like something is sitting on his chest and states it feels like is choking when he tries to take a deep breath he states nothing makes the pain better or worse he denies any fevers or chills shortness of breath vomiting diarrhea or any other symptoms patient states he is on Eliquis Related Data Home Medications Medication Instructions Recorded Confirmed Anoro Ellipta See Rx Instructions .ROUTE .COMPLEX 01/04/20 07/06/20 albuterol sulfate 2 puff INHALATION Q4-6H PRN 01/04/20 07/06/20 amlodipine [Norvasc] 10 mg PO BID 01/04/20 07/06/20 atorvastatin [Lipitor] 40 mg PO DAILY 01/04/20 07/06/20 doxepin 25 mg PO HS 01/04/20 07/06/20 fenofibrate 160 mg PO DAILY 01/04/20 07/06/20 hydrocodone-acetaminophen 1 tablet PO Q8H PRN 01/04/20 07/06/20 icosapent ethyl [Vascepa] 2 g PO BID 01/04/20 07/06/20 latanoprost [Xalatan] 1 drp OPHTHALMIC (EYE) HS 01/04/20 07/06/20 leflunomide [Arava] 10 mg PO DAILY 01/04/20 07/06/20 magnesium 250 mg PO BID 01/04/20 07/06/20 nitroglycerin See Rx Instructions .ROUTE 01/04/20 07/06/20 .COMPLEX PRN pantoprazole [Protonix] 40 mg PO DAILY 01/04/20 07/06/20 prazosin [Minipress] 2 mg PO DAILY 01/04/20 07/06/20 pregabalin [Lyrica] 100 mg PO BID 01/04/20 07/06/20 quetiapine [Seroquel] 600 mg PO HS 01/04/20 07/06/20 riboflavin (vitamin B2) [Vitamin 200 mg PO BID 01/04/20 07/06/20 B-2] topiramate [Topamax] 100 mg PO BID 01/04/20 07/06/20 venlafaxine [Effexor XR] 150 mg PO DAILY 01/04/20 07/06/20 docusate sodium [Colace] 100 mg PO DAILY PRN 05/14/20 07/06/20 gabapentin 300 mg PO BID 05/14/20 07/06/20 isosorbide mononitrate 30 mg PO DAILY 05/14/20 07/06/20 naproxen [Naprosyn] 500 mg PO BID PRN 05/14/20 07/06/20 potassium chloride 20 meq PO DAILY 05/14/20 07/06/20 acetaminophen [Tylenol] 500 - 1,000 mg PO Q6H PRN 07/06/20 07/06/20 ascorbic acid (vitamin C) 500 mg PO DAILY 07/06/20 07/06/20 cholecalciferol (vitamin D3) 50 mcg PO DAILY 07/06/20 07/06/20 [Vitamin D3] magnesium hydroxide [Milk of 5 ml PO DAILY PRN 07/06/20 07/06/20 Magnesia] mecobalamin (vitamin B12) 2,000 mcg PO DAILY 07/06/20 07/06/20 polyethylene glycol 3350 [Miralax] 17 g PO DAILY PRN 07/06/20 07/06/20 psyllium husk [Fiber (psyllium 0.52 g PO BID 07/06/20 07/06/20 husk)] sotalol 80 mg PO BID 07/06/20 07/06/20 Allergies Allergy/AdvReac Type Severity Reaction Status Date / Time aripiprazole Allergy Unknown Rash Verified 04/05/21 05:00 hydroxychloroquine Allergy Unknown Rash Verified 04/05/21 05:00 methotrexate Allergy Unknown Rash Verified 04/05/21 05:00 sumatriptan Allergy Unknown Rash Verified 04/05/21 05:00 zolpidem Allergy Unknown Rash Verified 04/05/21 05:00 Review of Systems Review of Systems: Gen.: Denies fevers or chills ENT: Denies congestion Respiratory: Denies shortness of breath or cough CV: See HPI GI: Denies abdominal pain nausea, emesis or diarrhea Musculoskeletal: Denies back pain or muscle pain Neuro: Denies numbness, tingling, weakness or focal weakness Skin: Denies rash Except as documented, all other systems reviewed and negative [facility] Past Medical History Medical History (Updated 04/05/21 @ 13:37 by Bhavna Ma PA-C) Anxiety Arthritis Atrial fibrillation Status post ablation. On apixaban for stroke prophylaxis. COVID-19 (07/2020) Depression Fibromyalgia Glaucoma Hepatic steatosis Hyperlipidemia Hypertension Kidney stones Migraines Mitral valve prolapse Obstructive sleep apnea on CPAP Peripheral neuropathy Posttraumatic stress disorder Rheumatoid arthritis Skin cancer Transient ischemic attack Surgical History Dooley
[2021-04-05 05:12] LABS: Basophils Percent Auto 0.3 % (0.2-1.2); Eosinophils Absolute Auto 0.1 K/mm3 (0-0.3); Eosinophils Percent Auto 1.8 % (0-4.4); Hematocrit 41.2 % (42.0-52.0); Hemoglobin 14.2 g/dL (14.0-18.0); Immature Granulocyte Absolute 0.04 K/mm3 (0.00-0.031); Immature Granulocyte Percent A 0.7 % (0-0.5); Lymphocytes Absolute Auto 1.69 K/mm3 (0.9-3.2); Lymphocytes Percent Auto 28.4 % (18.3-44.2); Mean Corpuscular HGB Conc 34.5 g/dl (32-36); Mean Corpuscular Hemoglobin 29.7 pg (26-34); Mean Corpuscular Volume 86.2 fl (80-100); Mean Platelet Volume 10.8 fl (7.4-10.4); Monocytes Absolute Auto 0.7 K/mm3 (0.1-0.6); Monocytes Percent Auto 11.4 % (2.6-8.5); Neutrophils Absolute Auto 3.4 K/mm3 (1.3-6.7); Neutrophils Percent Auto 57.4 % (45.5-73.1); Platelet Count Result 216 k/mm3 (150-375); Red Blood Count 4.78 M/mm3 (4.6-6.20); Red Cell Distribution Width 12.9 % (11.5-14.5)
[2021-04-05] MEDS: ASPIRIN 81 MG CHEWABLE TABLET 324 MG PO (05:23)
[2021-04-05 05:25] LABS: INR 0.9
[2021-04-05 05:26] LABS: Partial Thromboplastin Time 25.2 SECONDS (22.3-36.8)
[2021-04-05 05:38] LABS: Alanine Aminotransferase 72 U/L (4-50); Albumin Level 4.8 g/dL (3.5-5.1); Alkaline Phosphatase 88 U/L (38-126); Anion Gap 11 mmol/L (8-16); Aspartate Amino Transferase 52 U/L (17-59); Bilirubin,Total 0.5 mg/dL (0.2-1.3); Blood Urea Nitrogen 36 mg/dL (9-20); Calcium 9.5 mg/dL (8.4-10.2); Carbon Dioxide 26 mmol/L (22-30); Chloride 101 mmol/L (98-107); Estimated CRCL calculation 83 ml/min; Estimated Glomerular Filt Rate 56; Glucose 110 mg/dL (65-110); Potassium 3.8 mmol/L (3.4-5.0); Sodium 138 mmol/L (137-145)
[2021-04-05 05:41] LABS: Troponin I < 0.012 ng/mL (0.000-0.034)
[2021-04-05 06:02] LABS: Lipase 218 U/L (23-300)
[2021-04-05] MEDS: FAMOTIDINE 20 MG/2 ML VIAL IV PUSH (07:23)
[2021-04-05] MEDS: MORPHINE SULFATE (*CRX) 2 MG/ML INJ IV PUSH (07:28)
--- NOTE | 2021-04-05 07:55 | PC.NURSE ---
pt resting on stretcher with at bedside. states chest pain is 7/10. waiting bed assignment on floor.
[2021-04-05 08:03] LABS: Troponin I < 0.012 ng/mL (0.000-0.034)
[2021-04-05 11:19] LABS: Troponin I < 0.012 ng/mL (0.000-0.034)
--- NOTE | 2021-04-05 11:46 | PC.NURSE ---
This patient, London Menendez, was admitted to IMU Room 205-01. Patient/family oriented to hospital policies and general routines including ID bracelet, bed and alarms, visiting hours, pain management, procedures, bathroom and other care routines, personal items, smoking policy, room service/diet, and visiting hours. Information on how to activate the Rapid Response Team has been discussed. Patient/Family are encouraged to report perceived risks to care and to ask questions if they do not understand what they are told or what they should do.
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
[2021-04-05 13:33] LABS: D Dimer 0.27 ug/mL (<0.48)
[2021-04-05] MEDS: HYDROcodone/acetaminophen (*CRX) 10-325 MG TABLET 1 TAB PO (17:33)
[2021-04-05] MEDS: amLODIPine BESYLATE 5 MG TABLET PO (21:26)
[2021-04-05] MEDS: hydrOXYzine pamoate 25 MG CAPSULE PO (21:26)
[2021-04-05] MEDS: APIXABAN 5 MG TABLET PO (21:26)
[2021-04-05] MEDS: TOPIRAMATE 100 MG TABLET PO (21:26)
[2021-04-05] MEDS: ACETAMINOPHEN 500 MG TABLET PO (21:27)
[2021-04-06] VITALS: PULSE 66
[2021-04-06 02:00] VITALS: PULSE 60
[2021-04-06 04:00] VITALS: BP 154/89; PULSE 62; PULSE 71; RESP 20; TEMP 36.4; O2SAT 100
[2021-04-06 05:10] LABS: Basophils Percent Auto 0.3 % (0.2-1.2); Eosinophils Absolute Auto 0.1 K/mm3 (0-0.3); Hematocrit 41.6 % (42.0-52.0); Hemoglobin 14.2 g/dL (14.0-18.0); Immature Granulocyte Absolute 0.02 K/mm3 (0.00-0.031); Immature Granulocyte Percent A 0.3 % (0-0.5); Lymphocytes Absolute Auto 1.73 K/mm3 (0.9-3.2); Lymphocytes Percent Auto 29.1 % (18.3-44.2); Mean Corpuscular HGB Conc 34.1 g/dl (32-36); Mean Corpuscular Hemoglobin 30.1 pg (26-34); Mean Corpuscular Volume 88.1 fl (80-100); Mean Platelet Volume 10.9 fl (7.4-10.4); Monocytes Absolute Auto 0.8 K/mm3 (0.1-0.6); Monocytes Percent Auto 13.1 % (2.6-8.5); Neutrophils Absolute Auto 3.3 K/mm3 (1.3-6.7); Neutrophils Percent Auto 55.2 % (45.5-73.1); Platelet Count Result 227 k/mm3 (150-375); Red Blood Count 4.72 M/mm3 (4.6-6.20); Red Cell Distribution Width 12.9 % (11.5-14.5); White Blood Count 5.9 K/mm3 (4.5-10.0)
[2021-04-06 05:39] LABS: Alanine Aminotransferase 90 U/L (4-50); Albumin Level 4.6 g/dL (3.5-5.1); Alkaline Phosphatase 86 U/L (38-126); Anion Gap 8 mmol/L (8-16); Aspartate Amino Transferase 66 U/L (17-59); Bilirubin,Total 0.7 mg/dL (0.2-1.3); Blood Urea Nitrogen 26 mg/dL (9-20); Calcium 9.2 mg/dL (8.4-10.2); Carbon Dioxide 29 mmol/L (22-30); Chloride 102 mmol/L (98-107); Estimated CRCL calculation 97 ml/min; Estimated Glomerular Filt Rate > 60; Glucose 91 mg/dL (65-110); Sodium 139 mmol/L (137-145)
[2021-04-06] MEDS: HYDROcodone/acetaminophen (*CRX) 10-325 MG TABLET 1 TAB PO (05:45)
[2021-04-06 06:00] VITALS: PULSE 84
[2021-04-06 08:00] VITALS: BP 158/93; PULSE 59; PULSE 64; RESP 20; TEMP 36.4; O2SAT 98
[2021-04-06 10:00] VITALS: PULSE 65
[2021-04-06] MEDS: APIXABAN 5 MG TABLET PO (10:05)
[2021-04-06] MEDS: ASPIRIN 81 MG CHEWABLE TABLET PO (10:05)
[2021-04-06] MEDS: amLODIPine BESYLATE 5 MG TABLET 10 MG PO (10:05)
[2021-04-06] MEDS: ATORVASTATIN 40 MG TABLET PO (10:06)
[2021-04-06] MEDS: TOPIRAMATE 100 MG TABLET PO (10:06)
[2021-04-06] MEDS: FENOFIBRATE 160 MG TABLET PO (10:06)
[2021-04-06] MEDS: VENLAFAXINE HCL XR 75 MG CAP.ER.24H 300 MG PO (10:06)
[2021-04-06] MEDS: PREGABALIN (*CRX) 50 MG CAPSULE 100 MG PO (10:06)
[2021-04-06] MEDS: hydroCHLOROthiazide 25 MG TABLET PO (10:06)
[2021-04-06] MEDS: SPIRONOLACTONE 25 MG TABLET PO (10:06)
[2021-04-06] MEDS: CYCLOBENZAPRINE HCL 10 MG TABLET PO (10:06)
--- NOTE | 2021-04-06 10:36 | PM.DS ---
DS: Admitting Diagnosis Discharge Date 10:37 a.m. on April 06, 2021 Admitting Diagnosis Chest pain, ACS ruled out DS: Summary Hospital Course Hospital Course: See discharge summary below Time Spent with Patient Time attestation: Total time spent providing and/or coordinating discharge services: START OF DOCTOR LIAM?S DISCHARGE SUMMARY Date of Admission: April 05, 2021 Date of Discharge: 10:36 a.m. on April 06, 2020 Primary Diagnosis: Chest pain, ACS ruled out Secondary Diagnosis: Hypertension Coronary artery Disease Atrial fibrillation Obstructive sleep apnea Hypertension Hyperlipidemia Rheumatoid arthritis Neuropathy History of TIA Chronic pain Fibromyalgia Depression Anxiety with history of panic attack Muscle spasm Severe PTSD Glaucoma Hepatic steatosis History of nephrolithiasis History of migraine Documented history of mitral valve prolapse Diverticulosis Obesity Consultations: Cardiology Disposition: The patient is advised follow-up with Cardiology 1 month post discharge for his history of diagnosis of coronary artery disease as well as atrial fibrillation The patient is advised follow-up with psychiatry 1-2 weeks post discharge for his history of depression, anxiety, severe PTSD Discharge Medications: Norvasc 10 mg p.o. daily Eliquis 5 mg p.o. b.i.d. Aspirin 81 mg p.o. daily Lipitor 40 mg p.o. q.h.s. Flexeril 10 mg p.o. b.i.d. Fenofibric acid 1 her 60 mg p.o. daily Effexor XR 300 mg p.o. daily Hydrochlorothiazide 25 mg p.o. daily [place] 10/325 mg p.o. q.8 hours p.r.n. pain Hydroxyzine 25 mg p.o. q.h.s. Lyrica 100 mg p.o. b.i.d. Aldactone 25 mg p.o. daily Topamax 100 mg p.o. b.i.d. Trintellix 100 mg p.o. daily Imdur 120 mg p.o. daily END OF DOCTOR LIAM?S DISCHARGE SUMMARY DS: Data Data Completed and Pending Labs on day of discharge: Labs from last 24 hours 04/06/21 04/06/21 04/06/21 04:24 04:24 04:24 WBC 5.9 RBC 4.72 Hgb 14.2 Hct 41.6 L MCV 88.1 MCH 30.1 MCHC 34.1 RDW 12.9 Plt Count 227 MPV 10.9 H Immature Gran % (Auto) 0.3 Neut % (Auto) 55.2 Lymph % (Auto) 29.1 [place] % (Auto) 13.1 H Eos % (Auto) 2.0 Baso % (Auto) 0.3 Lymph # (Auto) 1.73 [place] # (Auto) 0.8 H Eos # (Auto) 0.1 Baso # (Auto) 0.0 Abs Immat Gran (auto) 0.02 Absolute Neuts (auto) 3.3 Absolute Nucleated RBC 0.0 Nucleated RBC % 0.0 D-Dimer Sodium 139 Potassium 4.0 Chloride 102 Carbon Dioxide 29 Anion Gap 8 BUN 26 H D Creatinine 1.10 Estim Creat Clear Calc 97 Estimated GFR > 60 Glucose 91 Calcium 9.2 Magnesium 2.0 Total Bilirubin 0.7 AST 66 H ALT 90 H Alkaline Phosphatase 86 Troponin I Total Protein 7.0 Albumin 4.6 TSH (Reflex) 1.790 04/05/21 04/05/21 13:04 10:33 WBC RBC Hgb Hct MCV MCH MCHC RDW Plt Count MPV Immature Gran % (Auto) Neut % (Auto) Lymph % (Auto) [place] % (Auto) Eos % (Auto) Baso % (Auto) Lymph # (Auto) [place] # (Auto) Eos # (Auto) Baso # (Auto) Abs Immat Gran (auto) Absolute Neuts (auto) Absolute Nucleated RBC Nucleated RBC % D-Dimer 0.27 Sodium Potassium Chloride Carbon Dioxide Anion Gap BUN Creatinine Estim Creat Clear Calc Estimated GFR Glucose Calcium Magnesium Total Bilirubin AST ALT Alkaline Phosphatase Troponin I < 0.012 Total Protein Albumin TSH (Reflex) Discharge Plan Discharge Consulting providers: Rich Galindo Discharging Clinician: Dr. Moser Patient Disposition: Home, Self-Care Activity: as tolerated Diet: low sodium, low cholesterol and low fat Discharge Instructions: The patient is advised follow-up with psychology clinician 1 month post discharge for his history of atrial
--- NOTE | 2021-04-06 11:04 | PM.PNCARD ---
Progress Note: A&P Assessment and Plan (1) Chest pain: Code(s): R07.9 - Chest pain, unspecified Status: Acute Assessment and Plan: His chest pain is highly unlikely to be cardiac in etiology. It has been constant for 1-2 days and yet troponins are negative. EKG is normal. Okay to discharge from cardiac perspective. I had a again do not think his chest pain is cardiac in etiology. Much more likely secondary to underlying severe anxiety/panic disorder. Regardless he has an established relationship with [facility] for which she should follow up within the next 1-2 weeks. (2) A-fib: Code(s): I48.91 - Unspecified atrial fibrillation Status: Acute Assessment and Plan: On anti rhythmic. And anticoagulation (3) Hypertension: Code(s): I10 - Essential (primary) hypertension Status: Chronic Assessment and Plan: Per hospitalist (4) Sleep apnea: Code(s): G47.30 - Sleep apnea, unspecified Status: Chronic Assessment and Plan: Uses CPAP at home (5) Anxiety: Code(s): F41.9 - Anxiety disorder, unspecified Status: Acute Assessment and Plan: Significant history Subjective Date/time seen: 04/06/21 11:04 Interval history: 60-year-old admitted for chest pain Date of service 04/06/2021: Had another ?panic attack ?earlier today with associated chest pain. Troponins are negative. Feels better at this point. No shortness of breath. D-dimer was negative Review of Systems Review of Systems: All systems reviewed & are unremarkable except as noted in HPI and below Constitutional: Constitutional: Denies fatigue, Reports headache(s) and Denies weakness Eyes: Eyes: Denies blurry vision ENT: Reports Normal hearing present, Reports headache(s) and Denies neck pain Cardiovascular: Cardiovascular: Reports chest pain, Reports diaphoresis, Reports palpitations and Reports dyspnea Respiratory: Respiratory: Reports dyspnea Gastrointestinal: Gastrointestinal: Denies abdominal pain Genitourinary: Genitourinary: Denies dysuria Musculoskeletal: Musculoskeletal: Denies neck pain Integumentary/Breasts: Skin/Breast: Denies dry skin Neurologic: Reports Normal hearing present, Reports headache(s) and Denies weakness Psychiatric: Psychiatric: Reports anxiety Endocrine: Endocrine: Denies fatigue and Reports palpitations Hematologic/Lymphatic: Hematologic/Lymphatic: Denies easy bleeding Allergic/Immunologic: Allergic/Immunologic: Denies GI upset with certain foods Exam Narrative: Alert and oriented appears stated age Const: General: comfortable and no acute distress HENMT: General nose exam: Normal nares present Eyes: Sclera: sclerae normal Neck: Neck: supple and no JVD Chest: Other: No reproducible chest wall pain to palpation Resp: Effort & Inspection: normal respiratory effort Auscultation: clear to auscultation bilaterally Cardio: Rate: regular rate Rhythm: regular rhythm GI: Inspection: non-distended Skin: General skin exam: normal color Neuro: Cranial nerves: Yes Normal hearing present Cognition (Neuro): normal cognition Speech: normal speech Extrem: General: normal to inspection, normal exam except as noted and no edema Psych: Mental Status: mental status grossly normal Objective Data Vital Signs Vital Signs: Vital Signs - 24 hr 04/05/21 12:00 04/05/21 14:00 04/05/21 16:00 Temperature 36.5 C 36.1 C L Pulse Rate 67 67 77 Respiratory Rate 14 20 Blood Pressure 131/69 168/95 H Pulse Oximetry 97 98 04/05/21 18:00 04/05/21 20:00 04/05/21 22:00 Temperature 36.7 C Pulse Rate 66 71 88 Respiratory Rate 20 Blood Pressure 170/101 H Pulse Oximetry 99 04/05/21 22:30 04/06/21 00:00 04/06/21 02:00 Temperature 36.8 C Pulse Rate 68 66 60 Respiratory Rate 22 H Blood Pressure 140/64 Pulse Oximetry 98 04/06/21 04:00 04/06/21 06:00 04/06/21 08:00 Temperature 36.4 C L
== END 2021-04-06 11:26 | disposition home or self-care (01) ==
LOC: ANHED 07:31 → ANHIMU 08:16
PROVIDERS: Internal Medicine Cardiovascular Disease; Physician Assistant; Admitting Provider Internal Medicine; Emergency Provider Emergency Medicine; PCP Family Medicine; Visit Provider Internal Medicine
DX: R07.9 Chest pain, unspecified (principal); F43.10 Post-traumatic stress disorder, unspecified; I48.91 Unspecified atrial fibrillation; I10 Essential (primary) hypertension; I25.10 Atherosclerotic heart disease of native coronary artery without angina pectoris; F41.9 Anxiety disorder, unspecified; G47.33 Obstructive sleep apnea (adult) (pediatric); E78.5 Hyperlipidemia, unspecified; M06.9 Rheumatoid arthritis, unspecified; R06.02 Shortness of breath; R60.0 Localized edema; Z86.73 Personal history of transient ischemic attack (TIA), and cerebral infarction without residual deficits
CPT/HCPCS: 36415; 71045; 74177; 80053; 83690; 83735; 84443; 84484; 85025; 85380; 85610; 85730; 93005; 96374; 96375; 99285; A9270; G0378; J2270; Q9967

== ENCOUNTER 2021-04-15 13:28 | Outpatient (CLI) | payer MEDICARE, BC, SELFPAY ==
--- NOTE | ~2021-04-15 | US_ITS ---
EXAMINATION: US scrotum doppler DATE: 04/15/2021 14:16 INDICATION: Decreased testosterone level. TECHNIQUE: Grayscale and Doppler ultrasound images of the testes were obtained. COMPARISON: None. FINDINGS: The right testis measures 4.1 x 2.1 x 3.3 cm. The left testis measures 4.3 x 2.3 x 3.0 cm. There is a 7 mm cyst of the tunica albuginea on the left. There is normal vascular flow to both teste s. The right epididymis demonstrate an 8 mm cyst. The left epididymis is normal with normal vascular flow. There is no varicocele or hydrocele. IMPRESSION: 1. No etiology for decreased testosterone. Reviewed, dictated and finalized at location A.
== END 2021-04-15 13:29 | disposition home or self-care (01) ==
PROVIDERS: PCP Physician Assistant; Visit Provider Internal Medicine Endocrinology, Diabetes & Metabolism
DX: R79.89 Other specified abnormal findings of blood chemistry (principal); N50.3 Cyst of epididymis; N50.82 Scrotal pain; N51 Disorders of male genital organs in diseases classified elsewhere; N20.2 Calculus of kidney with calculus of ureter
CPT/HCPCS: 76870; 93976

== ENCOUNTER 2022-07-10 21:17 | Emergency (ER) | payer MEDICARE, BC, SELFPAY ==
[2022-07-10] VITALS (9 sets, daily range): BP systolic 112; BP diastolic 69; PULSE 62–73; RESP 13–18; TEMP 36.6; O2SAT 95–99
--- NOTE | ~2022-07-10 | CT_ITS ---
EXAMINATION: CT facial & cervical spine wo DATE: 07/10/2022 22:32 INDICATION: Head injury TECHNIQUE: Computed tomography (CT) of the maxillofacial region and cervical spine was performed with out intravenous contrast. The dose-length product (DLP) was 606.48 mGy-cm. Automated exposure control and iterative reconstruction technique were employed. COMPARISON: None FINDINGS: MAXILLOFACIAL CT: There is no facial fracture. The globes and orbits are intact. There is mild mucosal thickening of th e paranasal sinuses. There is a scalp laceration superolateral to the left orbit. CERVICAL SPINE CT: There is no fracture, dislocation, or subluxation. The odontoid is intact. The vertebral body heights are normal. There is mild loss of intervertebral disc space height at C3-4 and C5-6. There is multil evel mild facet and uncovertebral joint osteoarthritis. IMPRESSION: 1. No facial fracture. 2. Moderate cervical spondylosis without acute findings. Reviewed, dictated and finalized at location B. T HEMMER
--- NOTE | ~2022-07-10 | CT_ITS ---
EXAMINATION: CT brain wo con DATE: 07/10/2022 22:31 INDICATION: Head injury. TECHNIQUE: Computed tomography (CT) of the head was performed without intravenous contrast. The mA wa s adjusted according to patient size. Iterative reconstruction technique was employed. The dose-lengt h product was 681.00 mGy-cm. COMPARISON: Head CT 07/06/2020 FINDINGS: There is no intracranial hemorrhage, acute infarction, or abnormal intracranial mass lesion . The ventricles are normal in size. There is mild mucosal thickening in the paranasal sinuses. There are likely changes of ocular lens replacement surgeries. The mastoid air cells are normal. IMPRESSION: 1. Normal brain. Reviewed, dictated and finalized at location A. S DEPARTMENT SUPERVISOR IMPRESSION: 1. Normal brain.
--- NOTE | ~2022-07-10 | XR_ITS ---
EXAMINATION: XR pelvis 1-2V DATE: 07/10/2022 22:34 INDICATION: Fall. TECHNIQUE: An anteroposterior view of the pelvis was obtained on 2 radiographs. COMPARISON: CT abdomen and pelvis 04/05/2021 FINDINGS: There is levocurvature and severe spondylosis of lumbar spine. There are changes of posteri or fusion procedure at L5-S1. No fracture. There is moderate osteoarthritis of the hips. IMPRESSION: 1. Moderate osteoarthritis of the hips. Reviewed, dictated and finalized at location A. ER FOLDER OPERATOR
--- NOTE | ~2022-07-10 | XR_ITS ---
EXAMINATION: XR chest 1V portable DATE: 07/10/2022 22:34 INDICATION: Chest pain. TECHNIQUE: A single frontal view of the chest was obtained on 2 radiographs. COMPARISON: Chest single view 04/05/2021, chest CT 07/07/2020 FINDINGS: There is no pneumonia, pleural effusion, or pneumothorax. Calcified left hilar and mediasti nal lymph nodes are consistent with old granulomatous disease. The heart size is normal. IMPRESSION: 1. No acute cardiopulmonary disease. Reviewed, dictated and finalized at location A. DDER TENDER
--- NOTE | 2022-07-10 21:46 | ECG_ITS ---
Measurements Intervals [place] Rate: 68 P: 57 DE: 163 QRS: 15 QRSD: 109 T: 39 QT: 451 QTc: 480 Interpretive Statements SINUS RHYTHM PROLONGED QT INTERVAL BASELINE ARTIFACT- III, AVF ABNORMAL ECG COMPARED TO ECG 04/05/2021 04:56:17 PROLONGED QT INTERVAL NOW PRESENT Electronically Signed On 07-11-2022 6:36:03 TRANSFORMER MAKER by Chano Villagomez D.O.
--- NOTE | 2022-07-10 22:03 | ED.GENADULT ---
HPI - General Adult General Chief complaint: Fall Stated complaint: fall History of Present Illness HPI narrative: this is a 62-year-old male with a history of dysrhythmia presenting to ED after syncopal event. The patient says he was sitting on the sofa when he started to have palpitations and shortness of breath. He got up to go into the kitchen and made 3 steps before he had a syncopal event. He fell forward and hit his head. EMS was then called he was brought to the hospital. Patient is currently complaining of facial pain and neck pain. Patient is on Eliquis for AFib. Patient did have a episode of chest pain earlier today but is not currently experiencing chest pain. The patient says he is not currently having palpitations, shortness of breath or any other complaints. Related Data Home Medications Medication Instructions Recorded Confirmed amlodipine 10 mg tablet (Norvasc) 10 mg PO DAILY 01/04/20 04/05/21 atorvastatin 40 mg tablet (Lipitor) 40 mg PO DAILY 01/04/20 04/05/21 fenofibrate 160 mg tablet 160 mg PO DAILY 01/04/20 04/05/21 hydrocodone 10 mg-acetaminophen 1 tablet PO Q8H PRN Pain 01/04/20 04/05/21 325 mg tablet pregabalin 100 mg capsule (Lyrica) 100 mg PO BID 01/04/20 04/05/21 topiramate 100 mg tablet (Topamax) 100 mg PO BID 01/04/20 04/05/21 venlafaxine 150 mg 300 mg PO DAILY 01/04/20 04/05/21 capsule,extended release 24 hr (Effexor XR) cyclobenzaprine 10 mg tablet 10 mg PO BID 04/05/21 04/05/21 hydrochlorothiazide 25 mg tablet 25 mg PO DAILY 04/05/21 04/05/21 hydroxyzine pamoate 25 mg capsule 25 mg PO HS 04/05/21 04/05/21 spironolactone 25 mg tablet 25 mg PO DAILY 04/05/21 04/05/21 vortioxetine 10 mg tablet 10 mg PO DAILY 04/05/21 04/05/21 (Trintellix) Allergies Allergy/AdvReac Type Severity Reaction Status Date / Time aripiprazole Allergy Unknown Rash Verified 04/05/21 05:00 hydroxychloroquine Allergy Unknown Rash Verified 04/05/21 05:00 methotrexate Allergy Unknown Rash Verified 04/05/21 05:00 sumatriptan Allergy Unknown Rash Verified 04/05/21 05:00 zolpidem Allergy Unknown Rash Verified 04/05/21 05:00 [facility] Past Medical History Medical History Anxiety Arthritis Atrial fibrillation Status post ablation. On apixaban for stroke prophylaxis. COVID-19 (07/2020) Depression Fibromyalgia Glaucoma Hepatic steatosis Hyperlipidemia Hypertension Kidney stones Migraines Mitral valve prolapse Obstructive sleep apnea on CPAP Peripheral neuropathy Posttraumatic stress disorder Rheumatoid arthritis Skin cancer Transient ischemic attack Surgical History Surgical History History of arthroplasty of right shoulder History of arthroscopic knee surgery History of cholecystectomy History of loop recorder History of lumbar surgery Status post ablation of atrial fibrillation Status post surgical removal of malignant neoplasm of skin Family History Family History Mother Cancer Social History Social History Social History: . Lives with his in [place]. They have 2 children. 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 No alcohol, tobacco, or illicit substance use. Surrogate decision maker: Rubi Menendez, spouse. Code status: Full code. Exam Narrative: APPEARANCE: No apparent distress. Head: 3 cm laceration over the left eyebrow EYES: EOMI, NOSE: Atraumatic NECK: Trachea midline Patient is an [place] collar, midline cervical tenderness RESPIRATORY: No increased rate of breathing, no rales, clear to auscultation CARDIOVASCULAR: RRR, no peripheral edema ABDOMINAL: Non-distended MUSCULOSKELETAl: No obvious deformities head to toe trauma exam revealed a laceration over the upper left eyebrow but no other injuries NEURO: Alert. Moving 4/4 extremities SKIN:: Warm, dry. Normal color PSYCHIATRIC: Nor
[2022-07-10 22:10] LABS: Basophils Percent Auto 0.1 % (0.2-1.2); Eosinophils Absolute Auto 0.1 K/mm3 (0-0.3); Hematocrit 44.9 % (42.0-52.0); Hemoglobin 14.8 g/dL (14.0-18.0); Immature Granulocyte Absolute 0.04 K/mm3 (0.00-0.031); Immature Granulocyte Percent A 0.5 % (0-0.5); Lymphocytes Absolute Auto 1.08 K/mm3 (0.9-3.2); Lymphocytes Percent Auto 13.6 % (18.3-44.2); Mean Corpuscular Volume 87.9 fl (80-100); Mean Platelet Volume 11.2 fl (7.4-10.4); Monocytes Absolute Auto 0.6 K/mm3 (0.1-0.6); Monocytes Percent Auto 7.6 % (2.6-8.5); Neutrophils Absolute Auto 6.1 K/mm3 (1.3-6.7); Neutrophils Percent Auto 77.2 % (45.5-73.1); Platelet Count Result 255 k/mm3 (150-375); Red Blood Count 5.11 M/mm3 (4.6-6.20); Red Cell Distribution Width 13.7 % (11.5-14.5); White Blood Count 7.9 K/mm3 (4.5-10.0)
[2022-07-10 22:21] LABS: Ethanol < 10 mg/dL (<10)
[2022-07-10 22:25] LABS: INR 1.1; Partial Thromboplastin Time 28.9 SECONDS (22.3-36.8); Prothrombin Time 14.2 Seconds (11.1-14.7)
[2022-07-10 22:49] LABS: Influenza A QL RT-PCR Negative (Negative); Influenza B QL RT-PCR Negative (Negative); RSV RNA, RT-PCR Negative (Negative); SARS-CoV-2 RNA PCR Negative
[2022-07-10] MEDS: HYDROcodone/acetaminophen (*CRX) 5-325 MG TABLET 1 TAB PO (23:07)
[2022-07-10] MEDS: LIDOCAINE HCL 2% LOCAL INJ 20 ML VIAL (23:08)
[2022-07-10 23:31] LABS: Anion Gap 10 mmol/L (8-16); Blood Urea Nitrogen 28 mg/dL (9-20); Calcium 9.1 mg/dL (8.4-10.2); Carbon Dioxide 26 mmol/L (22-30); Chloride 103 mmol/L (98-107); Creatine Kinase 54 U/L (55-170); Estimated CRCL calculation 94 ml/min; Estimated Glomerular Filt Rate > 60; Glucose 140 mg/dL (65-110); Magnesium 1.9 mg/dL (1.6-2.3); Potassium 3.8 mmol/L (3.4-5.0); Sodium 139 mmol/L (137-145)
[2022-07-10 23:43] LABS: NT Pro B Type Natriuretic Pept 432 pg/mL (5-100); Troponin I < 0.012 ng/mL (0.000-0.034)
[2022-07-11] VITALS (39 sets, daily range): BP systolic 116–158; BP diastolic 55–92; PULSE 54–77; RESP 11–23; TEMP 36.7; O2SAT 95–100
[2022-07-11 06:09] LABS: Troponin I < 0.012 ng/mL (0.000-0.034)
[2022-07-11 06:10] LABS: Add Urine Microscopic? YES; Appearance Urine Slightly Cloudy (Clear); Bilirubin Urine Negative (Negative); Blood Urine 3+ (Negative); Color Urine Yellow (Yellow); Glucose Urine UA Negative (Negative); Ketones Urine Negative (Negative); Leukocyte Esterase Ur Negative LEU/UL (Negative); Nitrate Urine Negative (Negative); Protein Urine Negative (Negative); Specific Grav Ur >= 1.030 (1.001-1.035); Urobilinogen Urine 0.2 mg/dL (<2.0)
[2022-07-11 06:18] LABS: Mucus Urine Heavy /lpf; RBC Urine >75 /hpf (0-2); WBC Urine 16-20 /hpf
--- NOTE | 2022-07-11 06:42 | PC.NURSE ---
Called [facility] Patient Transfer Center. Patient accepted to [facility] (on ) by Dr. Pacheco, hospitalist. [facility] will call back when bed becomes available.
[2022-07-11] MEDS: HYDROcodone/acetaminophen (*CRX) 10-325 MG TABLET 1 TAB PO (07:55)
--- NOTE | 2022-07-11 08:19 | PC.NURSE ---
Called dietary and ordered breakfast tray for pt at this time.
--- NOTE | 2022-07-11 08:51 | PC.NURSE ---
no beds pt remains on waitlist at [facility]
--- NOTE | 2022-07-11 10:32 | PC.NURSE ---
received bed at [place] [id number] [address] accepted eta 12p trip#[id number] [facility] accepted eta 30min [facility] cancelled
--- NOTE | 2022-07-11 10:46 | PC.NURSE ---
sera called - lost bed at [facility] ems notified
--- NOTE | 2022-07-11 11:51 | PC.NURSE ---
new bed at [facility] [id number] [facility] eta 30min
== END 2022-07-11 12:33 | disposition short-term general hospital (02) ==
PROVIDERS: Emergency Provider Emergency Medicine; PCP Hospitalist
DX: R55 Syncope and collapse (principal); S01.112A Laceration without foreign body of left eyelid and periocular area, initial encounter; N39.0 Urinary tract infection, site not specified; I49.9 Cardiac arrhythmia, unspecified; R06.02 Shortness of breath; Z20.822 Contact with and (suspected) exposure to COVID-19; I48.91 Unspecified atrial fibrillation; E78.5 Hyperlipidemia, unspecified; I10 Essential (primary) hypertension; I34.1 Nonrheumatic mitral (valve) prolapse; H40.9 Unspecified glaucoma; G47.33 Obstructive sleep apnea (adult) (pediatric); G62.9 Polyneuropathy, unspecified; M06.9 Rheumatoid arthritis, unspecified; M16.0 Bilateral primary osteoarthritis of hip; M79.7 Fibromyalgia; F41.9 Anxiety disorder, unspecified; F32.A Depression, unspecified; F43.10 Post-traumatic stress disorder, unspecified; Z86.16 Personal history of COVID-19; Z85.828 Personal history of other malignant neoplasm of skin; Z86.73 Personal history of transient ischemic attack (TIA), and cerebral infarction without residual deficits; Z87.442 Personal history of urinary calculi; Z79.01 Long term (current) use of anticoagulants; Z96.611 Presence of right artificial shoulder joint; R94.31 Abnormal electrocardiogram [ECG] [EKG]; M47.812 Spondylosis without myelopathy or radiculopathy, cervical region; W18.39XA Other fall on same level, initial encounter
CPT/HCPCS: 12013; 36415; 70450; 70486; 71045; 72125; 72170; 80048; 80307; 81001; 82550; 83735; 83880; 84484; 85025; 85610; 85730; 87086; 87637; 93005; 96365; 99285; A9270; J0696

== ENCOUNTER 2022-08-07 10:18 | Emergency (ER) | payer MEDICARE, BC, SELFPAY ==
--- NOTE | ~2022-08-07 | XR_ITS ---
EXAMINATION: XR chest 2V DATE: 08/07/2022 11:49 INDICATION: Shortness of breath and dizziness TECHNIQUE: Frontal and lateral views of the chest are obtained COMPARISON: 07/10/2022 FINDINGS: There are minimal airspace opacities of the lung bases. No pleural effusion or pneumothorax . The cardiomediastinal silhouette is normal. There are bridging osteophytes at multiple levels in th e spine, consistent with diffuse idiopathic skeletal hyperostosis (DISH). Changes of right shoulder a rthroplasty are noted. IMPRESSION: 1. Minimal airspace opacities of the lung bases, consistent with atelectasis versus pneumonia. Reviewed, dictated and finalized at location A. TERM CARE PHARMACIST IMPRESSION: 1. Minimal airspace opacities of the lung bases, consistent with atelectasis ve rsus pneumonia.
--- NOTE | ~2022-08-07 | CT_ITS ---
EXAMINATION: CT abdomen pelvis wo con DATE: 08/07/2022 13:31 INDICATION: Left flank pain TECHNIQUE: Computed tomography (CT) of the abdomen and pelvis was performed without intravenous contr ast. The dose-length product (DLP) was 1781.73 mGy-cm. Automated exposure control and iterative recon struction technique were employed. COMPARISON: 04/15/2021 FINDINGS: The lung bases are clear. The heart size is normal. The liver is diffusely low in attenuati on when compared with the spleen, consistent with hepatic steatosis. The gallbladder is surgically ab sent. Punctate calcifications in an otherwise normal spleen likely represent healed granulomatous dis ease. The pancreas and adrenal glands are normal. The right kidney is unremarkable. There is a 6 mm n onobstructing stone of the left kidney. No stones are present in the ureters or bladder. No hydroneph rosis or hydroureter. No pathologically enlarged abdominal or pelvic lymph nodes are identified. No f ree intraperitoneal gas or evidence of bowel obstruction. There is severe lumbar spondylosis. Changes of posterior fusion are noted at L5-S1. There is liquid stool throughout the colon to the level of t he rectum. IMPRESSION: 1. Nonobstructing left nephrolithiasis. 2. Diffuse hepatic steatosis. 3. CT findings of diarrhea. Reviewed, dictated and finalized at location A. RIALS MANAGEMENT MANAGER
[2022-08-07 10:42] VITALS: BP 150/91; PULSE 97; RESP 20; TEMP 37.3; O2SAT 99
--- NOTE | 2022-08-07 11:05 | ECG_ITS ---
Measurements Intervals [place] Rate: 84 P: 63 MO: 160 QRS: 1 QRSD: 90 T: 30 QT: 415 QTc: 491 Interpretive Statements SINUS RHYTHM WITH OCCASIONAL VENTRICULAR PREMATURE COMPLEXES NONSPECIFIC ST ABNORMALITY ABNORMAL ECG COMPARED TO ECG 07/10/2022 21:59:45 PROLONGED QT INTERVAL NO LONGER PRESENT Electronically Signed On 08-07-2022 11:34:16 MAINTENANCE SUPERVISOR ELECTRICAL by Rich Galindo M.D.
--- NOTE | 2022-08-07 11:27 | ED.SOB ---
HPI - SOB/Dyspnea General Chief Complaint: Shortness of Breath/Dyspnea Stated Complaint: shortness of breath Time Seen by Provider: 08/07/22 11:14 History of Present Illness HPI Narrative: Patient is a 62-year-old male with history of rheumatoid arthritis, A-fib, hypertension, here for evaluation of multiple medical complaints. Patient states that he has felt diffuse body aches over the past 4 days, most notable in his low back. He also notes cough and congestion, low-grade fevers, and mild chest pain. He was exposed to flu a several days ago. Additionally, patient notes a chronic left-sided frontal headache over the past month after head injury. He had head imaging at that time that was reassuring. He has been taking hydrocodone as prescribed by his PCP without relief. Denies any blurry vision, nausea or vomiting, unilateral weakness. Next, he is complaining of urinary frequency. He notes associated pain in his left flank that feels similar to when he had a kidney stone in the past. Patient is in the room who notes that patient missed an infusion for rheumatoid arthritis, in the past when he has missed an infusion he has felt similar with body aches all over including in his chest. Related Data Home Medications Medication Instructions Recorded Confirmed amlodipine 10 mg tablet (Norvasc) 10 mg PO DAILY 01/04/20 04/05/21 atorvastatin 40 mg tablet (Lipitor) 40 mg PO DAILY 01/04/20 04/05/21 fenofibrate 160 mg tablet 160 mg PO DAILY 01/04/20 04/05/21 hydrocodone 10 mg-acetaminophen 1 tablet PO Q8H PRN Pain 01/04/20 04/05/21 325 mg tablet pregabalin 100 mg capsule (Lyrica) 100 mg PO BID 01/04/20 04/05/21 topiramate 100 mg tablet (Topamax) 100 mg PO BID 01/04/20 04/05/21 venlafaxine 150 mg 300 mg PO DAILY 01/04/20 04/05/21 capsule,extended release 24 hr (Effexor XR) cyclobenzaprine 10 mg tablet 10 mg PO BID 04/05/21 04/05/21 hydrochlorothiazide 25 mg tablet 25 mg PO DAILY 04/05/21 04/05/21 hydroxyzine pamoate 25 mg capsule 25 mg PO HS 04/05/21 04/05/21 spironolactone 25 mg tablet 25 mg PO DAILY 04/05/21 04/05/21 vortioxetine 10 mg tablet 10 mg PO DAILY 04/05/21 04/05/21 (Trintellix) Allergies Allergy/AdvReac Type Severity Reaction Status Date / Time aripiprazole Allergy Unknown Rash Verified 08/07/22 11:38 hydroxychloroquine Allergy Unknown Rash Verified 08/07/22 11:38 methotrexate Allergy Unknown Rash Verified 08/07/22 11:38 sumatriptan Allergy Unknown Rash Verified 08/07/22 11:38 zolpidem Allergy Unknown Rash Verified 08/07/22 11:38 Review of Systems Review of Systems: Gen: reports body aches and low grade fevers Eyes: Denies eye pain or visual change ENT: Denies congestion Respiratory: reports SOB and cough CV: reports chest pain GI: Denies abdominal pain nausea, emesis or diarrhea : denies burning, urgency, frequency or hematuria Musculoskeletal: Reports back pain Neuro: Denies numbness, tingling, weakness or focal weakness Skin: Denies rash Except as documented, all other systems reviewed and negative [facility] Past Medical History Medical History Anxiety Arthritis Atrial fibrillation Status post ablation. On apixaban for stroke prophylaxis. COVID-19 (07/2020) Depression Fibromyalgia Glaucoma Hepatic steatosis Hyperlipidemia Hypertension Kidney stones Migraines Mitral valve prolapse Obstructive sleep apnea on CPAP Peripheral neuropathy Posttraumatic stress disorder Rheumatoid arthritis Skin cancer Transient ischemic attack Surgical History Surgical History History of arthroplasty of right shoulder History of arthroscopic knee surgery History of cholecystectomy History of loop recorder History of lumbar surgery Status post ablation of atrial fibrillation Status post surgical removal of malignant neoplasm of skin Family History Family History (Reviewed 07/10/22
[2022-08-07 11:35] VITALS: PULSE 78; O2SAT 94
[2022-08-07] MEDS: ACETAMINOPHEN 325 MG TABLET 650 MG PO (12:30)
[2022-08-07 12:32] VITALS: BP 175/86; PULSE 75; RESP 20; O2SAT 94
[2022-08-07 12:34] LABS: Basophils Percent Auto 0.1 % (0.2-1.2); Eosinophils Percent Auto 0.2 % (0-4.4); Hematocrit 44.1 % (42.0-52.0); Immature Granulocyte Absolute 0.04 K/mm3 (0.00-0.031); Immature Granulocyte Percent A 0.4 % (0-0.5); Lymphocytes Absolute Auto 0.27 K/mm3 (0.9-3.2); Lymphocytes Percent Auto 2.9 % (18.3-44.2); Mean Corpuscular Volume 85.3 fl (80-100); Mean Platelet Volume 10.8 fl (7.4-10.4); Monocytes Absolute Auto 0.4 K/mm3 (0.1-0.6); Monocytes Percent Auto 3.7 % (2.6-8.5); Neutrophils Absolute Auto 8.8 K/mm3 (1.3-6.7); Neutrophils Percent Auto 92.7 % (45.5-73.1); Platelet Count Result 200 k/mm3 (150-375); Red Blood Count 5.17 M/mm3 (4.6-6.20); Red Cell Distribution Width 13.8 % (11.5-14.5); White Blood Count 9.4 K/mm3 (4.5-10.0)
[2022-08-07 12:36] LABS: Appearance Urine Clear (Clear); Bilirubin Urine Negative (Negative); Blood Urine Negative (Negative); Color Urine Yellow (Yellow); Glucose Urine UA Negative (Negative); Ketones Urine Negative (Negative); Leukocyte Esterase Ur Negative LEU/UL (Negative); Nitrate Urine Negative (Negative); Protein Urine Negative (Negative); Specific Grav Ur >= 1.030 (1.001-1.035); Urobilinogen Urine 0.2 mg/dL (<2.0); pH Urine 5.5 (5.0-9.0)
[2022-08-07 12:37] LABS: Add Urine Microscopic? NO
[2022-08-07 12:46] LABS: Alanine Aminotransferase 46 U/L (6-50); Albumin Level 4.3 g/dL (3.5-5.1); Alkaline Phosphatase 93 U/L (38-126); Anion Gap 7 mmol/L (8-16); Aspartate Amino Transferase 40 U/L (17-59); Bilirubin,Total 0.9 mg/dL (0.2-1.3); Blood Urea Nitrogen 20 mg/dL (9-20); Calcium 8.2 mg/dL (8.4-10.2); Carbon Dioxide 26 mmol/L (22-30); Chloride 99 mmol/L (98-107); Estimated CRCL calculation 114 ml/min; Estimated Glomerular Filt Rate > 60; Glucose 105 mg/dL (65-110); Magnesium 1.6 mg/dL (1.6-2.3); Potassium 3.1 mmol/L (3.4-5.0); Sodium 132 mmol/L (137-145)
[2022-08-07 12:56] LABS: Troponin I < 0.012 ng/mL (0.000-0.034)
[2022-08-07 13:10] LABS: Influenza A QL RT-PCR Negative (Negative); Influenza B QL RT-PCR Negative (Negative); SARS-CoV-2 RNA PCR Negative
[2022-08-07] MEDS: MORPHINE SULFATE (*CRX) 4 MG/ML INJ IV PUSH (14:42)
[2022-08-07 14:47] VITALS: BP 165/100; PULSE 65; RESP 18; O2SAT 98
== END 2022-08-07 14:55 | disposition home or self-care (01) ==
PROVIDERS: Emergency Provider Physician Assistant; PCP Hospitalist
DX: M06.9 Rheumatoid arthritis, unspecified (principal); J18.9 Pneumonia, unspecified organism; Z20.822 Contact with and (suspected) exposure to COVID-19; I48.91 Unspecified atrial fibrillation; E78.5 Hyperlipidemia, unspecified; I10 Essential (primary) hypertension; I34.1 Nonrheumatic mitral (valve) prolapse; H40.9 Unspecified glaucoma; M19.90 Unspecified osteoarthritis, unspecified site; M79.7 Fibromyalgia; G47.33 Obstructive sleep apnea (adult) (pediatric); G62.9 Polyneuropathy, unspecified; F41.9 Anxiety disorder, unspecified; F32.A Depression, unspecified; F43.10 Post-traumatic stress disorder, unspecified; Z96.611 Presence of right artificial shoulder joint; Z86.16 Personal history of COVID-19; Z86.73 Personal history of transient ischemic attack (TIA), and cerebral infarction without residual deficits; Z85.828 Personal history of other malignant neoplasm of skin; Z87.442 Personal history of urinary calculi; Z79.01 Long term (current) use of anticoagulants; I49.3 Ventricular premature depolarization; R94.31 Abnormal electrocardiogram [ECG] [EKG]; N20.0 Calculus of kidney; K76.0 Fatty (change of) liver, not elsewhere classified
CPT/HCPCS: 36415; 71046; 74176; 80053; 81003; 83735; 84484; 85025; 87636; 93005; 96374; 99284; A9270; J2270

== ENCOUNTER 2022-08-11 23:31 | Emergency (ER) | payer MEDICARE, BC, SELFPAY ==
[2022-08-11 23:50] VITALS: BP 156/93; PULSE 89; RESP 20; TEMP 36.8; O2SAT 93
[2022-08-12 01:36] VITALS: BP 151/96; PULSE 73; RESP 15; O2SAT 96
--- NOTE | 2022-08-12 02:13 | ED.HA ---
HPI - Headache General Chief Complaint: Headache Stated Complaint: headache Time Seen by Provider: 08/12/22 01:12 History of Present Illness HPI Narrative: This is a 62-year-old male with past medical history of A-fib, anxiety, recently diagnosed with pneumonia, who presents to the emergency department complaining of headache, difficulty sleeping and anxiety. The patient states he was recently given opioid medication of unknown type, which she believes caused difficulty sleeping. He states he is only able to sleep 3 hours in the past 2 nights. He complains of mild headache and he has no other complaints today. He denies suicidal or homicidal ideations. Related Data Home Medications Medication Instructions Recorded Confirmed amlodipine 10 mg tablet (Norvasc) 10 mg PO DAILY 01/04/20 04/05/21 atorvastatin 40 mg tablet (Lipitor) 40 mg PO DAILY 01/04/20 04/05/21 fenofibrate 160 mg tablet 160 mg PO DAILY 01/04/20 04/05/21 hydrocodone 10 mg-acetaminophen 1 tablet PO Q8H PRN Pain 01/04/20 04/05/21 325 mg tablet pregabalin 100 mg capsule (Lyrica) 100 mg PO BID 01/04/20 04/05/21 topiramate 100 mg tablet (Topamax) 100 mg PO BID 01/04/20 04/05/21 venlafaxine 150 mg 300 mg PO DAILY 01/04/20 04/05/21 capsule,extended release 24 hr (Effexor XR) cyclobenzaprine 10 mg tablet 10 mg PO BID 04/05/21 04/05/21 hydrochlorothiazide 25 mg tablet 25 mg PO DAILY 04/05/21 04/05/21 hydroxyzine pamoate 25 mg capsule 25 mg PO HS 04/05/21 04/05/21 spironolactone 25 mg tablet 25 mg PO DAILY 04/05/21 04/05/21 vortioxetine 10 mg tablet 10 mg PO DAILY 04/05/21 04/05/21 (Trintellix) Allergies Allergy/AdvReac Type Severity Reaction Status Date / Time aripiprazole Allergy Unknown Rash Verified 08/07/22 11:38 hydroxychloroquine Allergy Unknown Rash Verified 08/07/22 11:38 methotrexate Allergy Unknown Rash Verified 08/07/22 11:38 sumatriptan Allergy Unknown Rash Verified 08/07/22 11:38 zolpidem Allergy Unknown Rash Verified 08/07/22 11:38 Review of Systems Review of Systems: CONSTITUTIONAL: Denies fever, chills, or sweats. EYES: Denies visual changes, redness, or discharge. ENT: Denies rhinorrhea, congestion, sore throat, or otalgia. CARDIOVASCULAR: Denies chest pain, palpitations, or edema. RESPIRATORY: Denies cough or dyspnea. GASTROINTESTINAL: Denies abdominal pain, nausea, vomiting, or diarrhea. GENITOURINARY: Denies dysuria or hematuria. SKIN: Denies rash or itching. MUSCULOSKELETAL: Denies back pain, joint pain, or myalgia. NEUROLOGIC: Denies headache, numbness, dizziness, or weakness. PSYCHIATRIC: Anxiety denies depression. [facility] Past Medical History Medical History Anxiety Arthritis Atrial fibrillation Status post ablation. On apixaban for stroke prophylaxis. COVID-19 (07/2020) Depression Fibromyalgia Glaucoma Hepatic steatosis Hyperlipidemia Hypertension Kidney stones Migraines Mitral valve prolapse Obstructive sleep apnea on CPAP Peripheral neuropathy Posttraumatic stress disorder Rheumatoid arthritis Skin cancer Transient ischemic attack Surgical History Surgical History History of arthroplasty of right shoulder History of arthroscopic knee surgery History of cholecystectomy History of loop recorder History of lumbar surgery Status post ablation of atrial fibrillation Status post surgical removal of malignant neoplasm of skin Family History Family History Mother Cancer Social History Social History Social History: . Lives with his in [place]. They have 2 children. 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 No alcohol, tobacco, or illicit substance use. Surrogate decision maker: Rubimaria isabel Menendez, spouse. Code status: Full code. Living arrangements: with family Occupation/Education: retired [employer]
[2022-08-12] MEDS: hydrOXYzine HCL 25 MG TABLET 50 MG PO (02:26)
[2022-08-12] MEDS: ACETAMINOPHEN 500 MG TABLET 1000 MG PO (02:26)
[2022-08-12] MEDS: PROCHLORPERAZINE MALEATE 5 MG TABLET 10 MG PO (02:26)
== END 2022-08-12 04:02 | disposition home or self-care (01) ==
PROVIDERS: Emergency Provider Preventive Medicine Aerospace Medicine; PCP Hospitalist
DX: F41.9 Anxiety disorder, unspecified (principal); G47.00 Insomnia, unspecified; M19.90 Unspecified osteoarthritis, unspecified site; I48.91 Unspecified atrial fibrillation; F32.9 Major depressive disorder, single episode, unspecified; M79.7 Fibromyalgia; K76.0 Fatty (change of) liver, not elsewhere classified; E78.5 Hyperlipidemia, unspecified; I10 Essential (primary) hypertension; G47.30 Sleep apnea, unspecified
CPT/HCPCS: 99283; A9270

== ENCOUNTER 2022-09-26 06:35 | Outpatient (CLI) | payer MEDICARE, BC, SELFPAY ==
[2022-09-26 07:21] LABS: Hematocrit 45.3 % (42.0-52.0); Hemoglobin 15.4 g/dL (14.0-18.0); Mean Corpuscular Hemoglobin 28.4 pg (26-34); Mean Corpuscular Volume 83.6 fl (80-100); Mean Platelet Volume 10.9 fl (7.4-10.4); Platelet Count Result 235 k/mm3 (150-375); Red Blood Count 5.42 M/mm3 (4.6-6.20); Red Cell Distribution Width 13.4 % (11.5-14.5); White Blood Count 7.6 K/mm3 (4.5-10.0)
[2022-09-26 07:27] LABS: Anion Gap 10 mmol/L (8-16); Blood Urea Nitrogen 23 mg/dL (9-20); Calcium 8.7 mg/dL (8.4-10.2); Carbon Dioxide 30 mmol/L (22-30); Chloride 100 mmol/L (98-107); Estimated Glomerular Filt Rate > 60; Glucose 96 mg/dL (65-110); Potassium 3.4 mmol/L (3.4-5.0); Sodium 140 mmol/L (137-145)
[2022-09-26 07:29] LABS: Prothrombin Time 12.8 Seconds (11.1-14.7)
== END 2022-09-26 06:36 | disposition home or self-care (01) ==
PROVIDERS: PCP Hospitalist
DX: I11.9 Hypertensive heart disease without heart failure (principal); I34.0 Nonrheumatic mitral (valve) insufficiency; I48.0 Paroxysmal atrial fibrillation; I63.9 Cerebral infarction, unspecified; R07.9 Chest pain, unspecified
CPT/HCPCS: 36415; 80048; 85027; 85610

== ENCOUNTER 2023-11-23 14:18 | Outpatient (CLI) | payer MEDICARE, BC, SELFPAY ==
--- NOTE | ~2023-11-23 | CT_ITS ---
EXAMINATION: CT diagnostic chest w con DATE: 11/23/2023 14:53 INDICATION: Hemoptysis TECHNIQUE: Computed tomography (CT) of the chest was performed with 100 mL Omnipaque-350 intravenous contrast. Additional 3D reconstructions utilizing coronal maximum intensity projection (MIP) were per formed. Automated exposure control and iterative reconstruction technique were employed. The dose-quang gth product was 744.47 mGy-cm. COMPARISON: Chest CT dated 07/07/2020 FINDINGS: Mild atelectasis along the anterobasilar left lower lobe along side a small left pericardial fat pad. No pneumonia, pulmonary edema or other pulmonary infiltrates. Couple calcified pulmonary nodules in the left upper lobe with calcified mediastinal and left hilar lymph nodes and single splenic calcific ation, all consistent with old granulomatous disease. No suspicious pulmonary nodules. No pleural eff usion or pneumothorax. No endobronchial lesions. Heart size is normal. Small amount of atheroscleroti c coronary artery calcification. No pericardial effusion. Thoracic aorta is normal in caliber with no dissection. Calcified No pathologically enlarged thoracic lymphadenopathy. Diffuse hepatic steatosis . Moderate thoracic spondylosis with bridging osteophytes at multiple levels consistent with diffuse idiopathic skeletal hyperostosis (DISH). Old healed fracture of the left 12th rib. T10 hemangioma. IMPRESSION: 1. Mild atelectasis at the anterior basilar segment of the left lower lobe. No other acute cardiopulm onary disease. Reviewed, dictated and finalized at location A. IMPRESSION: 1. Mild atelectasis at the anterior basilar segment of the left lower lobe. No other acute cardiopulmonary disease.
[2023-11-23 14:39] LABS: Estimated Glomerular Filt Rate 41
== END 2023-11-23 14:19 ==
LOC: MICIMG 14:21
PROVIDERS: PCP Hospitalist; Visit Provider Internal Medicine Pulmonary Disease
DX: R04.2 Hemoptysis (principal); J98.11 Atelectasis
CPT/HCPCS: 71260; Q9967

== ENCOUNTER 2023-12-05 12:25 | Emergency (ER) | payer MEDICARE, BC, SELFPAY ==
[2023-12-05] VITALS (30 sets, daily range): BP systolic 156–175; BP diastolic 77–106; PULSE 64–82; RESP 11–20; TEMP 36.6; O2SAT 95–100
--- NOTE | ~2023-12-05 | US_ITS ---
US abdomen limited INDICATION: Right upper quadrant pain PROCEDURE: Realtime right upper abdominal ultrasound. COMPARISON: No prior studies for comparison. FINDINGS: The pancreas is normal without focal mass or pancreatic ductal dilation. Liver echotexture is diffusely increased, consistent with fatty infiltration. There is normal directional flow in the portal vein. Gallbladder is surgically absent. Common bile duct measures 3 mm. No sonographic Branch's sign. IMPRESSION: 1: Fatty infiltration of the liver. Reviewed, dictated and finalized at location B.
--- NOTE | ~2023-12-05 | CT_ITS ---
EXAMINATION: CT abdomen pelvis w con DATE: 12/05/2023 14:06 INDICATION: Right abdominal pain. Right flank pain. TECHNIQUE: Computed tomography (CT) of the abdomen and pelvis was performed with 100 mL Omnipaque 350 intravenous contrast. Automated exposure control and iterative reconstruction technique were employe d. The dose-length product was 1697.13 mGy-cm. COMPARISON: CT abdomen and pelvis 08/07/2022 FINDINGS: The visualized portions of the lung bases are clear without pneumonia or pleural effusion. The heart size is normal. No pericardial effusion. The liver is normal. Calcifications in the spleen are consistent with old granulomatous disease. The gallbladder, pancreas, and adrenal glands are norm al. There are cysts in the kidneys measuring up to 2.1 cm on the right. There is a 4 mm stone in left kidney. The prostate is mildly enlarged. There is diverticulosis of the colon without evidence of di verticulitis. There are no dilated loops of bowel. The appendix is normal. Aortic atherosclerosis is noted. There is a right inguinal hernia containing fat. There are changes of posterior fusion procedu re at L5-S1. There is moderate lumbar spondylosis. There is a hemangioma in T9 vertebral body. There are old healed rib fractures. IMPRESSION: 1. Right inguinal hernia containing fat. Reviewed, dictated and finalized at location A.
--- NOTE | ~2023-12-05 | US_ITS ---
EXAMINATION: US scrotum doppler DATE: 12/05/2023 14:06 INDICATION: Right scrotal pain. TECHNIQUE: Grayscale and Doppler ultrasound images of the testes were obtained. COMPARISON: Ultrasound 04/15/2021 FINDINGS: The right testis measures 4.9 x 2.1 x 3.3 cm. The left testis measures 4.5 x 2.2 x 2.9 cm. There is normal vascular flow to both testes. The right epididymis demonstrates a 10 mm cyst. The lef t epididymis is normal with normal vascular flow. There is no varicocele or hydrocele. IMPRESSION: 1. No etiology for the patient's symptoms. Reviewed, dictated and finalized at location A.
[2023-12-05 12:55] LABS: Basophils Percent Auto 0.4 % (0.2-1.2); Eosinophils Absolute Auto 0.2 K/mm3 (0-0.3); Eosinophils Percent Auto 3.2 % (0-4.4); Hematocrit 42.1 % (42.0-52.0); Hemoglobin 14.4 g/dL (14.0-18.0); Immature Granulocyte Absolute 0.01 K/mm3 (0.00-0.031); Immature Granulocyte Percent A 0.2 % (0-0.5); Lymphocytes Absolute Auto 1.36 K/mm3 (0.9-3.2); Lymphocytes Percent Auto 29.2 % (18.3-44.2); Mean Corpuscular HGB Conc 34.2 g/dl (32-36); Mean Corpuscular Hemoglobin 29.6 pg (26-34); Mean Corpuscular Volume 86.4 fl (80-100); Mean Platelet Volume 10.4 fl (7.4-10.4); Monocytes Absolute Auto 0.7 K/mm3 (0.1-0.6); Monocytes Percent Auto 14.8 % (2.6-8.5); Neutrophils Absolute Auto 2.4 K/mm3 (1.3-6.7); Neutrophils Percent Auto 52.2 % (45.5-73.1); Platelet Count Result 258 k/mm3 (150-375); Red Blood Count 4.87 M/mm3 (4.6-6.20); Red Cell Distribution Width 13.2 % (11.5-14.5); White Blood Count 4.7 K/mm3 (4.5-10.0)
[2023-12-05 13:05] LABS: Alanine Aminotransferase 57 U/L (6-50); Albumin Level 4.7 g/dL (3.5-5.1); Alkaline Phosphatase 78 U/L (38-126); Anion Gap 8 mmol/L (4-12); Aspartate Amino Transferase 50 U/L (17-59); Bilirubin,Total 0.7 mg/dL (0.2-1.3); Blood Urea Nitrogen 25 mg/dL (9-20); Calcium 9.2 mg/dL (8.4-10.2); Carbon Dioxide 32 mmol/L (22-30); Chloride 100 mmol/L (98-107); Estimated CRCL calculation 94 ml/min; Estimated Glomerular Filt Rate > 60; Glucose 100 mg/dL (65-110); Potassium 2.9 mmol/L (3.4-5.0); Sodium 140 mmol/L (137-145)
--- NOTE | 2023-12-05 13:13 | ED.ABDPAIN ---
HPI - Abdominal Pain General Chief Complaint: Abdominal Pain Stated Complaint: right flank pain Time Seen by Provider: 12/05/23 12:48 Source: patient Mode of arrival: ambulatory Limitations: no limitations History of Present Illness HPI narrative: patient presents with right-sided abdominal pain and right flank pain and right groin pain since 11/28/2023. He also has an associated headache. patient states he has a history of a kidney stone for 5 years ago when he had pain (including headache) like this for which she was taken to the operating room here at [place]. He denies having nephrostomy tubes placed but does state he had 2 tubes in his penis. Does not follow with a urologist. He denies any hematuria although he is unsure. He notes that his urine has been malodorous. Denies any dysuria. he has urinary urgency and frequency as well as increased urinary output although at times he feels like he needs to go but is unable to have much output episodically. He took an oxycodone as a pain medication at home. He has been off his Eliquis since Monday as he currently has a loop recorder and is to have a pacemaker placed later this week. Patient's supply assistant is through [employer]. he denies any nausea or Vomiting. He does not know if he was febrile although he was diaphoretic last night. Related Data Home Medications Medication Instructions Recorded Confirmed amlodipine 10 mg tablet (Norvasc) 10 mg PO DAILY 01/04/20 04/05/21 atorvastatin 40 mg tablet (Lipitor) 40 mg PO DAILY 01/04/20 04/05/21 fenofibrate 160 mg tablet 160 mg PO DAILY 01/04/20 04/05/21 hydrocodone 10 mg-acetaminophen 1 tablet PO Q8H PRN Pain 01/04/20 04/05/21 325 mg tablet pregabalin 100 mg capsule (Lyrica) 100 mg PO BID 01/04/20 04/05/21 topiramate 100 mg tablet (Topamax) 100 mg PO BID 01/04/20 04/05/21 venlafaxine 150 mg 300 mg PO DAILY 01/04/20 04/05/21 capsule,extended release 24 hr (Effexor XR) cyclobenzaprine 10 mg tablet 10 mg PO BID 04/05/21 04/05/21 hydrochlorothiazide 25 mg tablet 25 mg PO DAILY 04/05/21 04/05/21 hydroxyzine pamoate 25 mg capsule 25 mg PO HS 04/05/21 04/05/21 spironolactone 25 mg tablet 25 mg PO DAILY 04/05/21 04/05/21 vortioxetine 10 mg tablet 10 mg PO DAILY 04/05/21 04/05/21 (Trintellix) Allergies Allergy/AdvReac Type Severity Reaction Status Date / Time aripiprazole Allergy Unknown Rash Verified 12/05/23 12:41 hydroxychloroquine Allergy Unknown Rash Verified 12/05/23 12:41 methotrexate Allergy Unknown Rash Verified 12/05/23 12:41 sumatriptan Allergy Unknown Rash Verified 12/05/23 12:41 zolpidem Allergy Unknown Rash Verified 12/05/23 12:41 [facility] Past Medical History Medical History (Updated 12/06/23 @ 00:00 by Background Daclaudia) Anxiety Arthritis Atrial fibrillation Status post ablation. On apixaban for stroke prophylaxis. COVID-19 (07/2020) Depression Fibromyalgia Glaucoma Hepatic steatosis Hyperlipidemia Hypertension Implantable loop recorder present Kidney stones Migraines Mitral valve prolapse Obstructive sleep apnea on CPAP Peripheral neuropathy Posttraumatic stress disorder Rheumatoid arthritis Skin cancer Transient ischemic attack Surgical History Surgical History History of arthroplasty of right shoulder History of arthroscopic knee surgery History of cholecystectomy History of loop recorder History of lumbar surgery Status post ablation of atrial fibrillation Status post surgical removal of malignant neoplasm of skin Family History Family History Mother Cancer Social History Social History Social History: . Lives with his in [place]. They have 2 children. 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 No alcohol, tobacco, or illicit substance use. Surrogate decision maker: Rubi Menendez, spouse. Code status: Full code. Living arrangeme
[2023-12-05 13:53] LABS: Lipase 105 U/L (23-300); Magnesium 1.7 mg/dL (1.6-2.3)
[2023-12-05 14:03] LABS: INR 0.9; Partial Thromboplastin Time 29.1 Seconds (22.3-36.8); Prothrombin Time 12.5 Seconds (11.1-14.7)
[2023-12-05] MEDS: SODIUM CHLORIDE 0.9% IV 1,000 ML 999 ML IV CONT (14:10)
[2023-12-05] MEDS: MORPHINE SULFATE (*CRX) 4 MG/ML INJ IV PUSH ×2 (14:10→15:50)
[2023-12-05] MEDS: MAGNESIUM SULF 1 GM/D5W 100 ML 1 GM/100 ML BAG IVPB (14:29)
[2023-12-05] MEDS: POTASSIUM BICARBONATE 25 MEQ TABEF 50 MEQ PO (14:29)
[2023-12-05 14:42] LABS: Lactic Acid Reflex 1.3 mmol/L (0.7-2.0)
[2023-12-05 14:51] LABS: Anion Gap 6 mmol/L (4-12); Blood Urea Nitrogen 24 mg/dL (9-20); Calcium 8.5 mg/dL (8.4-10.2); Carbon Dioxide 31 mmol/L (22-30); Chloride 101 mmol/L (98-107); Estimated CRCL calculation 94 ml/min; Estimated Glomerular Filt Rate > 60; Glucose 92 mg/dL (65-110); Potassium 2.8 mmol/L (3.4-5.0); Sodium 138 mmol/L (137-145)
[2023-12-05] MEDS: KCL 20 MEQ/SW 100 ML 100 ML 50 MEQ IVPB (15:01)
[2023-12-05] MEDS: SODIUM CHLORIDE 0.9% IV 250 ML 50 ML (15:02)
[2023-12-05 15:09] LABS: Appearance Urine Clear (Clear); Bilirubin Urine Negative (Negative); Blood Urine Negative (Negative); Color Urine Yellow (Yellow); Glucose Urine UA Negative (Negative); Ketones Urine Negative (Negative); Leukocyte Esterase Ur Negative LEU/UL (Negative); Nitrate Urine Negative (Negative); Protein Urine Negative (Negative); Urobilinogen Urine 0.2 mg/dL (<2.0); pH Urine 6.5 (5.0-9.0)
[2023-12-05 15:15] LABS: Specific Grav Ur 1.037 (1.001-1.035)
[2023-12-05 15:16] LABS: Add Urine Microscopic? NO
[2023-12-05 16:13] LABS: Trichomonas Vag PCR NOT DETECTED (NOT DETECTE)
[2023-12-05 16:36] LABS: Chlamydia trachomatis NOT DETECTED (NOT DETECTE); Neisseria gonorrhoeae PCR NOT DETECTED (NOT DETECTE)
[2023-12-05 17:05] LABS: Anion Gap 3 mmol/L (4-12); Blood Urea Nitrogen 21 mg/dL (9-20); Calcium 8.6 mg/dL (8.4-10.2); Carbon Dioxide 33 mmol/L (22-30); Chloride 102 mmol/L (98-107); Estimated CRCL calculation 94 ml/min; Estimated Glomerular Filt Rate > 60; Glucose 93 mg/dL (65-110); Potassium 3.4 mmol/L (3.4-5.0); Sodium 138 mmol/L (137-145)
== END 2023-12-05 17:27 | disposition home or self-care (01) ==
PROVIDERS: Emergency Provider Student in an Organized Health Care Education/Training Program; PCP Hospitalist
DX: K40.90 Unilateral inguinal hernia, without obstruction or gangrene, not specified as recurrent (principal); K76.0 Fatty (change of) liver, not elsewhere classified; E87.6 Hypokalemia; R74.01 Elevation of levels of liver transaminase levels; R79.89 Other specified abnormal findings of blood chemistry; Z11.3 Encounter for screening for infections with a predominantly sexual mode of transmission; I48.91 Unspecified atrial fibrillation; I10 Essential (primary) hypertension; I34.1 Nonrheumatic mitral (valve) prolapse; E78.5 Hyperlipidemia, unspecified; H40.9 Unspecified glaucoma; G47.33 Obstructive sleep apnea (adult) (pediatric); G62.9 Polyneuropathy, unspecified; M06.9 Rheumatoid arthritis, unspecified; M79.7 Fibromyalgia; F41.9 Anxiety disorder, unspecified; F43.10 Post-traumatic stress disorder, unspecified; F32.A Depression, unspecified; Z95.818 Presence of other cardiac implants and grafts; Z96.611 Presence of right artificial shoulder joint; Z86.16 Personal history of COVID-19; Z87.442 Personal history of urinary calculi; Z86.73 Personal history of transient ischemic attack (TIA), and cerebral infarction without residual deficits; Z85.828 Personal history of other malignant neoplasm of skin; Z90.49 Acquired absence of other specified parts of digestive tract; Z79.01 Long term (current) use of anticoagulants; Z79.899 Other long term (current) drug therapy; Z79.82 Long term (current) use of aspirin
CPT/HCPCS: 36415; 74177; 76705; 76870; 80048; 80053; 81003; 83605; 83690; 83735; 85025; 85610; 85730; 87491; 87591; 87661; 93976; 96361; 96365; 96366; 96367; 96375; 96376; 99284; A9270; J2270; J3475; J3480; J7030; J7050; Q9967

== ENCOUNTER 2024-01-11 09:47 | Outpatient (CLI) | payer MEDICARE, BC, SELFPAY ==
--- NOTE | ~2024-01-11 | US_ITS ---
Limited Abdominal Sonogram: Real-time sonographic imaging of the right upper quadrant was performed. Clinical History: Right upper quadrant pain Findings: The liver appears echogenic, with no evidence of mass lesion or bile duct dilatation. Main portal vein demonstrates normal direction of flow. The gallbladder is absent, compatible prior chantale cystectomy. The common bile duct measures 4 mm. The visualized pancreas, aorta, and IVC are unremark able. Impression: Diffuse fatty infiltration of the liver. Status post cholecystectomy. Reviewed, dictated and finalized at location . Impression: Diffuse fatty infiltration of the liver. Status post cholecystectomy.
== END 2024-01-11 09:48 ==
LOC: MICIMG 09:50
PROVIDERS: PCP Hospitalist
DX: R10.11 Right upper quadrant pain (principal); K30 Functional dyspepsia; K76.0 Fatty (change of) liver, not elsewhere classified; Z90.49 Acquired absence of other specified parts of digestive tract
CPT/HCPCS: 76705

== ENCOUNTER 2024-04-08 15:51 | Emergency (ER) | payer MEDICARE, BC, SELFPAY | END 2024-04-08 16:31 | disposition left against medical advice (07) | LOC: ANHED 16:26 | PROVIDERS: PCP Hospitalist | DX: Z53.21 Procedure and treatment not carried out due to patient leaving prior to being seen by health care provider (principal) | CPT/HCPCS: 99199 ==

== ENCOUNTER 2025-02-14 13:30 | Emergency (ER) | payer MEDICARE, BC, SELFPAY ==
--- NOTE | ~2025-02-14 | XR_ITS ---
EXAMINATION: XR chest 1V portable 02/14/2025 15:01 INDICATION: Chest pressure PROCEDURE: AP portable chest COMPARISON: Comparison to multiple prior studies sequentially, with oldest reviewed study dated 07/12. FINDINGS: The lungs are clear. The cardiomediastinal silhouette is within normal limits. There are no pleural effusions. There is no pneumothorax suspected. IMPRESSION: 1: NO ACUTE CARDIOPULMONARY DISEASE. Reviewed, dictated and finalized at location A.
--- NOTE | ~2025-02-14 | CT_ITS ---
EXAMINATION: CT brain wo con DATE: 02/14/2025 15:37 INDICATION: Headache. Elevated blood pressure TECHNIQUE: Computed tomography (CT) of the head was performed without intravenous contrast. The dose- length product was 681.00 mGy-cm. COMPARISON: None FINDINGS: No acute intracranial hemorrhage. No mass effect. No midline shift. No hydrocephalus. Visualized paranasal sinuses and mastoid air cells are clear. No skull fracture. IMPRESSION: 1. No acute intracranial hemorrhage. No mass effect. Reviewed, dictated and finalized at location A.
--- OUTSIDE RECORDS SUMMARY | 2025-02-14 13:33 | XMS_ITS | Clinical Summary ---
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 Name Role Phone Nolvia Olivares MD, Butch Cross Primary Care Provide r Yessica Worthy MD Unavailable Tonny Yoon MD Unavailable Ajay Downs MD Unavailable Grey Hand RN Unavailable Kodi Griggs MD Unavailable Allergies Active Allergy Reactions Criticality Noted Date Comments Aripiprazole Nausea Only Medium 06/04/2014 RECREATIONAL THERAPY TECHNICIAN Dysfunction Hydrocodone Agitation Low 12/10/2024 Hydroxychloroquine Other (See comments) Low 018 damaged eye muscles Methotrexate Nausea Only,Other (See comments) Medium 06/04/2014 Liver enzymes elevated Sumatriptan Nausea Only,Other (See comments) Medium 06/04/2014 Heart attack symptoms Zolpidem Tartrate Nausea And Vomiting,Mental status changes,Hallucination s Medium 06/04/2014 Medications apixaban (ELIQUIS) 5 mg tablet Take 1 tablet (5 mg total) by mouth 2 (two) times a day 02/02/20 23 Active magnesium oxide (MAG-OX) 500 mg (301.6 mg elemental) tablet Take 1 tablet (500 mg total) by mouth daily 07/05/19 24 Active hydrOXYzine (ATARAX) 50 mg tablet Take 1 tablet (50 mg total) by mouth daily 11/26/19 24 Active isosorbide mononitrate ER (IMDUR) 60 mg 24 hr tabletIndicatio ns:duplicate med Take 1 tablet (60 mg total) by mouth daily 01/03/[address] (CYMBALTA) 30 mg capsule Take 1 capsule (30 mg total) by mouth daily 02/29/20 24 Active albuterol HFA (PROVENTIL HFA,VENTOLIN HFA,PROAIR HFA) 90 mcg/actuation inhaler Inhale 2 puffs every 6 (six) hours as needed for wheezing 3 each 4 06/04/20 24 025 Active Additional Information Patient taking differently:2 puff inhalation Every 6 hours PRN, wheezing,Indications: did not bring atc appt. 12/10/24, Informant: Self, Reported on 01/30/2025 nitroglycerin (NITROSTAT) 0.[address] 1 tablet (0.4 mg total) under the tongue every 5 (five) minutes as needed for chest pain Active atorvastatin (LIPITOR) 40 mg tablet Take 1 tablet (40 mg total) by mouth daily 30 tablet 11 08/09/19 25 026 Active cloNIDine (CATAPRES) 0.1 mg tablet Take 1 tablet (0.1 mg total) by mouth 3 (three) times a day as needed for high blood pressure Take 1 time for BP >170/90 10/15/19 25 Active atogepant (Qulipta) 60 mg tablet Take by mouth as needed (mir) Active diltiaZEM CD (CARDIZEM CD) 360 mg 24 hr capsuleIndicati ons:Paroxysmal atrial fibrillation (HCC),PVC's (premature ventricular contractions) Take 1 capsule (360 mg total) by mouth daily 30 capsule 10/24/19 25 Active Additional Information Patient taking differently:360 mg oralNightly, Reported on 01/30/2025 fluticasone propionate (FLONASE) 50 mcg/actuation nasal sprayIndication s:did not bring bottle 12/10/24 Administer 1 spray into each nostril daily as needed for rhinitis Active polyethylene glycol (MIRALAX) 17 gram/dose bulk powder Take 17 g by mouth nightly Active ciclopirox 1 % shampoo Apply 1 Application topically 2 (two) times a week SHAMPOO SCALP 1-2 TIMES A WEEK. APPLY FOR 3-5 MINUTES THEN WASH OFF. 11/02/19 25 Active ketoconazole (NIZORAL) 2 % cream Apply 1 Application topically 2 (two) times a day 11/05/19 25 Active losartan (COZAAR) 25 mg tablet Take 1 tablet (25 mg total) by mouth daily 11/08/19 25 Active QUEtiapine (SEROquel) 300 mg tablet Take 1 tablet (300 mg total) by mouth nightly 30 tablet 11/15/19 25 Active linaCLOtide (LINZESS) 145 mcg capsule Take 1 capsule (145 mcg total) by mouth daily 90 capsule 1 11/20/19 25 Active Additional Information Patient taking differently:145 mcg oralNightly, Reported on 01/30/2025 cyanocobalamin (Vitamin B-12) 1,000 mcg sublingual tablet Take 3 tablets (3,000 mcg total) by mouth daily Active potassium chloride ER 10 mEq CR tabletIndicatio ns:pt states only takes with food otherwise can't not take Take 2 tablet/capsule (20 mEq total) by mouth daily with breakfast 180 tablet 1 12/12/19 25 Active hydroCHLOROthia zide (HYDRODIURIL) 25 mg tabletIndicatio ns:pt states is going to pharmacy today to start Take 1 tablet (25 mg total) by mouth daily 90 tablet 1 12/12/19 25 Active cyclobenzaprine (FLEXERIL) 10 mg tablet Take 1 tablet (10 mg total) by mouth 3 (three) times a day as needed for muscle spasms 90 tablet 1 12/25/19 25 025 Active senna-docusate (PERICOLACE) 8.6-50 mg Take 1 tablet by mouth daily 30 tablet 12/25/19 25 Active metoprolol XL (TOPROL-XL) 50 mg extended release tabletIndicatio ns:Paroxysmal atrial fibrillation (HCC),PVC's (premature ventricular contractions) TAKE 1 TABLET(50 MG) BY MOUTH TWICE DAILY 60 tablet 01/10/20 25 Active traMADoL (ULTRAM) 50 mg tablet Take 1 tablet (50 mg total) by mouth every 8 (eight) hours as needed for pain 60 tablet 01/15/20 25 Active cephalexin (KEFLEX) 250 mg capsuleIndicati ons:Wound infection after surgery TAKE 2 CAPSULES(500 MG) BY MOUTH TWICE DAILY FOR 10 DAYS 40 capsule 02/04/20 25 Active cephalexin (KEFLEX) 250 mg capsuleIndicati ons:Wound infection after surgery Take 2 capsules (500 mg total) by mouth 2 (two) times a day for 10 days 40 capsule 01/16/20 25 025 Discontinued Active Problems Problem Noted Date Diagnosed Date Shortness of breath 11/08/2024 Lumbar radiculopathy 10/31/2024 Spinal stenosis of lumbar region 10/31/2024 Lumbar disc herniation 10/31/2024 Severe major depression with psychotic features 10/23/2024 Assessment & Plan (10/23/2024 2:10 PM CDT): Chronic stable Well controlled Continue current prescribed medications cymbalta and seroquel at current dose PVC (premature ventricular contraction) 10/17/19 Assessment & Plan (10/23/2024 2:08 PM CDT): Sympomatic Main drivers of his conditions overall-ablation is being considered NSVT (nonsustained ventricular tachycardia) 10/01 Chronic stable angina 07/11/2024 Assessment & Plan (10/23/2024 2:08 PM CDT): Continue to take Ranexa/imdur Follows with cardiology Assessment & Plan (08/19/2024 6:36 AM FARM IMPLEMENT MECHANIC): Continue to take Ranexa/imdur Follows with cardiology Assessment & Plan (07/11/2024 1:43 PM FARM IMPLEMENT MECHANIC): Continue to take Ranexa/imdur Follows with cardiology Lumbar post-laminectomy syndrome 01/22/2024 Spinal stenosis of lumbar re gion with neurogenic claudication 01/08/2024 Assessment & Plan (10/23/2024 2:08 PM CDT): Will continue to follow up with NSY Continue roxicodone prn Assessment & Plan (08/19/2024 6:36 AM FARM IMPLEMENT MECHANIC): Seeing NSY, however several things continue to delay his surgery Will get in with cardiology in October Assessment & Plan (01/24/2024 11:01 AM CDT): Following with pain management Continue medications per them S/P thyroidectomy 04/17/2023 Assessment & Plan (04/17/2023 2:21 PM CDT): Had microcarcinoma, removed and clear margins Will need yearly TSH Status post right knee replacement 04/12/2023 Encounter for Medicare annual wellness exam 10/02 Assessment & Plan (10/23/2024 1:40 PM CDT): Reviewed previous labs and diagnostic test results. Chronic medical problems evaluated and management plans discussed with the patient. Prescription medications, supplements, vitamins and immunizations reviewed. Wear seatbelts. Use sunscreen. Discussed healthy diet and disease prevention and controlling portions including alcohol Discussed importance of scheduling recommended screening tests. Discussed importance of regular physical examinations for health maintenance. Discussed importance of a living will, advanced directives and establishing or updating healthcare power of narrow fabric loom fixer document and providing our office with a copy. Assessment & Plan (10/23/2023 1:18 PM CDT): Reviewed previous labs and diagnostic test results. Chronic medical problems evaluated and management plans discussed with the patient. Prescription medications, supplements, vitamins and immunizations reviewed. Wear seatbelts. Use sunscreen. Discussed healthy diet and disease prevention and controlling portions including alcohol Discussed importance of scheduling recommended screening tests. Discussed importance of regular physical examinations for health maintenance. Discussed importance of a living will, advanced directives and establishing or updating healthcare power of narrow fabric loom fixer document and providing our office with a copy. Assessment & Plan (10/20/2022 1:32 PM CDT): Reviewed previous labs and diagnostic test results. Chronic medical problems evaluated and management plans discussed with the patient. Prescription medications, supplements, vitamins and immunizations reviewed. Wear seatbelts. Use sunscreen. Discussed healthy diet and disease prevention and controlling portions including alcohol Discussed importance of scheduling recommended screening tests. Discussed importance of regular physical examinations for health maintenance. Discussed importance of a living will, advanced directives and establishing or updating healthcare power of narrow fabric loom fixer document and providing our office with a copy. PTSD (post-traumatic stress disorder) 08/22/2022 Assessment & Plan (08/19/2024 6:36 AM FARM IMPLEMENT MECHANIC): Continue medications as prescribed, cymbalta seroquel Assessment & Plan (10/20/2022 1:30 PM CDT): Will contact Saba Dougherty Chronic, continuous use of opioids 08/16/2022 Assessment & Plan (11/19/2024 3:43 PM CDT): UDS in October negative for prescribed medications. Repeat UDS prior to next refill. If inconsistent with prescribed medications, consider titration off oxycodone. Assessment & Plan (10/23/2024 2:07 PM CDT): Has been on consistent dose Takes for severe back condition as documented on MRI Drug screen today Assessment & Plan (04/25/2024 3:25 PM CDT): Will continue the roxicodone With imaging results Assessment & Plan (01/24/2024 11:02 AM CDT): Chronic stable Well controlled Continue current prescribed medications oxycodone at current dose Assessment & Plan (10/23/2023 1:24 PM CDT): Sees specialist for this, DR Marcano Assessment & Plan (10/20/2022 1:31 PM CDT): Sees specialist Intractable migraine without aura and with status migrainosus 09/16/2021 Assessment & Plan (10/23/2024 2:12 PM CDT): Takes qulipta prn Episodic cluster headache, not intractable 12/10 Assessment & Plan (02/02/2024 10:14 AM CDT): Ongoing. Patient given Qulipta 60 mg samples. If symptoms persist consider referral to Neurology. Assessment & Plan (12/10/2020 4:04 PM CDT): Recommend consult with neurology Nonalcoholic fatty liver disease 10/25/2020 Overview (06/09/2022): Hx of fatty liver disease based on imaging without cirrhosis, caused by increased hepatic fat, i.e., inadequate metabolism of fat delivered to the liver. Fatty liver findings without transminitis is NAFLD and not associated with inflammation/progressive hepatic fibrosis. When associated with elevated transaminases, this is ZAMORA, and leads to cirrhosis in approx 30% of cases. Most effective tx is weight-loss, with reductions of 5-10% resolving transamnitis and decreasing fibrosis. -trend LFTs -weight loss as able; encouraged discussion of GLP-1 with PCP -avoid alcohol, drug use, and other hepatotoxins including limiting tylenol Assessment & Plan (10/23/2024 2:07 PM CDT): Monitor LFTs Follows liver specialists Assessment & Plan (06/22/2023 7:07 PM FARM IMPLEMENT MECHANIC): His improved sense of well-being following the thyroid and knee replacement surgeries may give him the chance to be more active and drop some of his excess weight. I also stressed the importance of caloric restriction. I gave him a weight loss goal of 15-30 lb over the course of the next year. He will return in 1 year or when clinically indicated. We discussed the cause of increased hepatic fat, i.e., inadequate metabolism of fat delivered to the liver. When associated with elevated transaminases, this is non-alcoholic steatohepatitis. This inflammation can lead to scar tissue or cirrhosis of the liver in approximately 30% of cases. Patients with cirrhosis are at risk for developing complications of portal hypertension, liver failure, , liver cancer, and/or the need for a liver transplant. Fat in the absence of elevated transaminases is non-alcoholic fatty liver disease. Routinely, this is not associated with inflammation or progressive hepatic fibrosis. The most effective treatment of fatty liver is weight loss, ideally achieved through a combination of caloric restriction and exercise. Aerobic exercise for 4 hours a week can accelerate fat metabolism and lead to improvement of liver tests. Weight loss of 5-10% of the current body weight usually leads to improvement in liver tests, liver inflammation, and a decrease in hepatic fibrosis. Assessment & Plan (06/09/2022 4:31 PM FARM IMPLEMENT MECHANIC): Assessment & Plan (09/16/2021 11:09 AM CDT): Monitor LFTs Cervical spinal stenosis 05/21/2020 Assessment & Plan (10/23/2024 2:12 PM CDT): Following NSY Takes roxicodone Assessment & Plan (07/11/2024 1:43 PM FARM IMPLEMENT MECHANIC): Seeing NSY, surgery latter this month Spondylosis of cervical joint without myelopathy 05/21/2020 Prediabetes 04/18/2019 Assessment & Plan (09/16/2021 11:06 AM CDT): Continue ozempic, increase dosage Assessment & Plan (07/16/2021 10:52 AM FARM IMPLEMENT MECHANIC): Continue taking ozempic as prescribed by endocrinology at prescribed dose after awaiting two weeks and no longer symptomatic He expressed understanding Assessment & Plan (12/10/2020 4:06 PM CDT): Recent A1c 5.1. Continue with focus on diet,exercise and weight loss. Mixed hyperlipidemia 12/26/2017 Assessment & Plan (10/23/2024 2:06 PM CDT): Chronic stable Well controlled Continue current prescribed medications lipitor at current dose Assessment & Plan (10/20/2022 1:30 PM CDT): Chronic stable Well controlled Continue current prescribed medications at current dose Assessment & Plan (06/17/2021 8:03 AM FARM IMPLEMENT MECHANIC): Continue stsatin Assessment & Plan (05/14/2020 4:21 PM FARM IMPLEMENT MECHANIC): Low fat low chol diet Continue statin, fenofibrate , Vascepa Check fasting lipid profile Assessment & Plan (10/16/2018 11:52 AM CDT): Very low fat diet Exercise Check fasting lipids Continue current agents Assessment & Plan (05/01/2018 12:37 PM CDT): With severe hyper triglyceridemia The need for a rema low fat diet, low-carbohydrate diet and daily aerobic exercises is stressed. Assessment & Plan (12/26/2017 11:51 AM CDT): Very low fat diet discussed. Daily aerobic exercise Add Lovaza. Chronic hypertension 12/04/2017 Assessment & Plan (10/23/2024 2:11 PM CDT): Has difficulty controlling this at times Continue HCTZ, metoprolol, Ranexa Assessment & Plan (07/11/2024 1:42 PM FARM IMPLEMENT MECHANIC): Has difficulty controlling this at times Continue HCTZ, metoprolol, Ranexa Assessment & Plan (05/24/2024 10:07 AM FARM IMPLEMENT MECHANIC): Ongoing. Do not use OTC medications with decongestants due to risk of worsening HTN. Assessment & Plan (02/02/2024 10:14 AM CDT): Well-controlled at this time with current medication regimen. Patient will continue to monitor BP at home. Assessment & Plan (10/23/2023 1:23 PM CDT): Continue HCTZ, metoprolol, Ranexa Assessment & Plan (10/20/2022 1:31 PM CDT): Chronic stable Well controlled Continue current prescribed medications at current dose Assessment & Plan (12/04/2017 1:27 PM CDT): Continue to monitor blood pressure Continue Amlodipine and Sotalol. Rheumatoid arthritis of [facility] sites with negative rheumatoid factor 12/04/2017 Assessment & Plan (10/23/2024 2:05 PM CDT): Continue leflunomide Assessment & Plan (08/19/2024 6:35 AM FARM IMPLEMENT MECHANIC): Continue leflunomide Assessment & Plan (07/11/2024 1:42 PM FARM IMPLEMENT MECHANIC): Continue leflunomide Assessment & Plan (10/23/2023 1:22 PM CDT): Continue leflunomide Assessment & Plan (10/20/2022 1:29 PM CDT): Chronic stable Well controlled Continue current prescribed medications at current dose Assessment & Plan (08/16/2022 10:10 AM FARM IMPLEMENT MECHANIC): Continue follow-up with rheum and pain management Assessment & Plan (06/17/2021 9:04 AM FARM IMPLEMENT MECHANIC): Holding off on medications because the class of drugs he may require have been showing to lower peoples protection again COVID Will continue to follow-up with Rheum Assessment & Plan (12/04/2017 1:20 PM CDT): Plans to initiate Rituximab Therapy (Rheumatology to write orders including pre-medications). David Florence Paroxysmal atrial fibrillation 12/04/2017 Assessment & Plan (10/23/2024 2:06 PM CDT): Seeing cardiology Given one month supplies of medications, will send in 90 days to mail service tomorrow Assessment & Plan (08/19/2024 6:35 AM FARM IMPLEMENT MECHANIC): Chronic stable Well controlled Continue current prescribed medications metoprolol and diltiazem at current dose Assessment & Plan (07/11/2024 1:45 PM FARM IMPLEMENT MECHANIC): Chronic stable Well controlled Continue current prescribed medications metoprolol and diltiazem at current dose Assessment & Plan (04/25/2024 3:27 PM CDT): Chronic stable Well controlled Continue current prescribed medications metoprolol and diltiazem at current dose Assessment & Plan (02/02/2024 10:14 AM CDT): Intermittent. Currently under evaluation by Cardiology. Patient advised to notify raw products director a recent ED visit and schedule follow-up sooner if needed. Assessment & Plan (01/24/2024 11:03 AM CDT): Chronic stable Well controlled Continue current prescribed medications metoprolol and dilitiazeiam with eliquis at current dose Assessment & Plan (12/08/2023 9:34 AM CDT): Irregular rhythm known to Cardiology, currently under evaluation and treatment. Contact cardiology office to schedule follow-up or procedures as needed. Assessment & Plan (10/23/2023 1:22 PM CDT): Continue elqiuis, diltizeim Assessment & Plan (10/20/2022 1:31 PM CDT): Chronic stable Well controlled Continue current prescribed medications at current dose Assessment & Plan (06/17/2021 8:17 AM FARM IMPLEMENT MECHANIC): S/p abalation Has not had issues with this since then Loop recorder is in, getting it taken out soon Assessment & Plan (12/04/2017 1:26 PM CDT): Continue Sotalol and Warfarin. Monitor INR Morbid obesity with BMI of 40.0-44.9, adult 09/01 Overview (11/25/2016): BMI 40.0-44.9, adult Assessment & Plan (10/23/2024 2:08 PM CDT): Weight is stable Monitor Related to his seroquel Assessment & Plan (08/19/2024 6:35 AM FARM IMPLEMENT MECHANIC): Weight is stable Monitor Related to his seroquel Assessment & Plan (07/11/2024 1:45 PM FARM IMPLEMENT MECHANIC): Weight is stable Monitor Related to his seroquel Assessment & Plan (05/24/2024 10:08 AM FARM IMPLEMENT MECHANIC): Work on attempts to lose weight about 1 lb a week. Join a weight loss program if necessary. Try to reach for BMI under 30. Exercise regularly, Limit carbs and sugars. Control portion intake. Consume 6-8 8oz glasses of water daily. Assessment & Plan (04/25/2024 3:25 PM CDT): Weight is stable Monitor Related to his seroquel Assessment & Plan (02/02/2024 10:15 AM CDT): Work on attempts to lose weight about 1 lb a week. Join a weight loss program if necessary. Try to reach for BMI under 30. Exercise regularly, Limit carbs and sugars. Control portion intake. Consume 6-8 8oz glasses of water daily. Assessment & Plan (01/24/2024 11:45 AM CDT): Stable, monitor His medication list does not help with the seroquel and remeron Assessment & Plan (01/16/2024 9:52 AM CDT): Work on attempts to lose weight about 1 lb a week. Join a weight loss program if necessary. Try to reach for BMI under 30. Exercise regularly, Limit carbs and sugars. Control portion intake. Consume 6-8 8oz glasses of water daily. LJ on CPAP Assessment & Plan (10/23/2024 2:05 PM CDT): 10 years ago was dx, his CPAP got recalled never able to get it back Was told perhaps he could get inspire Assessment & Plan (07/11/2024 1:25 PM FARM IMPLEMENT MECHANIC): 10 years ago was dx, his CPAP got recalled never able to get it back Was told perhaps he could get inspire Resolved Problems Problem Noted Date Diagnosed Date Resolved Date NSVT (nonsustained ventricular tachycardia) 10/16/2024 10/23/2024 Dizziness 07/31/2024 08/16/2024 NSVT (nonsustained ventricular tachycardia) 07/30/2024 08/16/2024 Ascending aortic aneurysm, u nspecified whether ruptured 07/11/2024 07/11/2024 Assessment & Plan (07/11/2024 1:44 PM FARM IMPLEMENT MECHANIC): Continue medications as prescribed stable Class 3 obesity with alveola r hypoventilation, serious comorbidity, and body mass index (BMI) of 40.0 to 44.9 in adult 01/16/2024 01/16/2024 Lumbar radiculopathy 12/14/2023 025 Primary osteoarthritis of right knee 03/07/2023 10/23/2024 Assessment & Plan (03/07/2023 3:01 PM CDT): Benefit of surgery out weigh risk Medically cleared for surgery Spondylosis of lumbar region without myelopathy or radiculopathy 11/11/2022 10/23/2024 Assessment & Plan (01/24/2024 11:46 AM CDT): Seeing pain management, continue treatment Assessment & Plan (12/08/2023 9:35 AM CDT): Follow up with pain management as planned next week to discuss low back pain and failure of treatment of oxycodone. Precordial pain 11/08/2022 10/23/2023 Other chest pain 09/05/2022 10/23/2023 Assessment & Plan (09/05/2022 10:19 AM FARM IMPLEMENT MECHANIC): No longer having chest pain Feels like this is improved Is following up with cardiology Atypical chest pain 08/22/2022 10/21/19 23 Hypertensive urgency 08/22/2022 023 Inability to sleep 08/22/2022 Assessment & Plan (09/05/2022 10:17 AM FARM IMPLEMENT MECHANIC): Having issues with sleep Has issues with the PTSD Feels like it is stable Status post lumbar spine ruthy valery for decompression of spinal cord 11/08/2021 08/16/2022 Assessment & Plan (11/08/2021 9:12 AM CDT): PLAN: - Start physical therapy/aqua therapy/home exercise program-script given to patient to go to a facility close to his home. -Discussed weight loss to help take pressure off his back. -Increase activity as tolerated, discussed taking 20 minute walks 3-4 times per day. 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 Murguia in 6 weeks with AP/Flexion/Extension Lumbar spine films. [facility] care 09/16/2021 Assessment & Plan (09/16/2021 11:10 AM CDT): Labs are updated Will returnin Elevated troponin 01/27/2021 10/23/2024 Assessment & Plan (01/27/2021 11:21 AM CDT): Recheck T levels Start T replacement , if indicated Hypotestosteronemia 12/10/2020 08/16/19 Assessment & Plan (12/10/2020 4:08 PM CDT): Will confer with Dr. Arteaga regarding replacement therapy. Fatty liver 10/25/2020 08/16/2022 Pain in joint, multiple sites 06/18/2020 08/16/2022 Cervical radiculopathy 05/21/202010/23 Hyperglycemia 05/14/2020 08/16/2022 Osteoarthritis of left knee 09/10/2019 10/23/2024 Primary osteoarthritis of right knee 09/10/2019 08/16/2022 Degenerative tear of posteri or horn of medial meniscus of left knee 09/10/2019 09/16/2021 Chronic pain syndrome 05/13/20192022 half-way prescription opiate use 05/13/2019 08/16/2022 Radiculopathy, lumbosacral region 05/06/2019 10/23/2024 Vitamin B12 deficiency 08/07/201808/16 Intractable migraine with au ra without status migrainosus 05/28/2018 08/16/2022 Insulin resistance 05/01/2018 3 Assessment & Plan (06/17/2021 9:04 AM FARM IMPLEMENT MECHANIC): Will monitor Hgba1c and sugar levels Assessment & Plan (05/14/2020 4:20 PM FARM IMPLEMENT MECHANIC): Diet and exercise Check hba1c Assessment & Plan (04/18/2019 12:30 PM CDT): Diet and exercise Check hba1c Will consider to start metformin Class 2 severe obesity due t o excess calories with serious comorbidity and body mass index (BMI) of 39.0 to 39.9 in adult 12/26/2017 4 Assessment & Plan (10/23/2023 1:23 PM CDT): Monitor weight Assessment & Plan (10/20/2022 1:31 PM CDT): With HTN, HLD Assessment & Plan (09/05/2022 10:16 AM FARM IMPLEMENT MECHANIC): Monitor BMI Assessment & Plan (08/16/2022 10:09 AM FARM IMPLEMENT MECHANIC): Monitor weight Has HTN, HLD, ZAMORA Assessment & Plan (09/16/2021 11:07 AM CDT): Working on weight loss Will increase ozempic Assessment & Plan (07/16/2021 10:53 AM FARM IMPLEMENT MECHANIC): Continue to monitor weight Assessment & Plan (06/17/2021 9:10 AM FARM IMPLEMENT MECHANIC): Will try wegovy, should help with weight loss in preparation for his surgery Discussed benefits and risk Assessment & Plan (12/10/2020 4:04 PM CDT): Importance of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 reference ranges are not reported, since discordance with absolute values may lead to misinterpretation of CBC data. Current Interpretive Data was last revised on 2017. Lymphocyte pct 30.3 % [facility] Comment: Interpretive Data Percent cell count reference ranges are not reported, since discordance with absolute values may lead to misinterpretation of CBC data. Current Interpretive Data was last revised on 2017. Monocyte pct 8.4 % [facility] Comment: Interpretive Data Percent cell count reference ranges are not reported, since discordance with absolute values may lead to misinterpretation of CBC data. Current Interpretive Data was last revised on 2017. Eosinophil pct 4.0 % [facility] Comment: Interpretive Data Percent cell count reference ranges are not reported, since discordance with absolute values may lead to misinterpretation of CBC data. Current Interpretive Data was last revised on 2017. Basophil pct 0.2 % [facility] Comment: Interpretive Data Percent cell count reference ranges are not reported, since discordance with absolute values may lead to misinterpretation of CBC data. Current Interpretive Data was last revised on 2017. Blood 12/10/2024 1:46 PM CDT 12/10/2024 1:50 PM CDT Ajay Downs MD LAB BLOOD ORDERABLES Final R esult Performing Organization Address [facility] de Phone Number [address] [address] * Infection Prevention MRSA Only (Staphylococcus aureus) PCR Nasal (12/10/2024 1:46 PM CDT) [facility] PCR Scrn, Methicillin resistant Staphylococcus aureus (MRSA) Not Detected Not Detected Comment: Interpretive Data Testing performed using Nucleic Acid Amplification with the [email or web address] Xpert MRSA NxG Assay. This assay detects target DNA from mecA, mecC and the SCCmec insertion site of Staphylococcus aureus using Real-Time PCR and has been cleared by the FDA. Performance characteristics have been verified by the [facility]. Current Interpretive Data was last revised on 2023 Nasal 12/10/2024 1:46 PM CDT 12/10/2024 1:50 PM CDT Benjamin Fairbanks MD LAB MICROBIOLOGY - GENER AL ORDERABLES Final Result Performing Organization Address [facility] de Phone Number [facility] [address] [place] [address] * CBC with auto differential (12/10/2024 1:46 PM CDT) [facility] WBC 4.55 3.80 - 9.90 K/cumm Hgb 15.7 13.0 - 17.5 g/dL [facility] Hct 45.3 38.9 - 50.3 % [facility] Plt 184 150 - 400 K/cumm [facility] MPV 10.9 9.1 - 12.3 fL [facility] RBC 5.39 4.30 - 5.80 M/cumm [facility] MCV 84.0 81.3 - 96.4 fL [facility] MCH 29.1 27.1 - 33.3 pg [facility] MCHC 34.7 32.3 - 35.7 g/dL [facility] RDW CV 13.3 11.1 - 14.9 % [facility] RDW SD 41.1 35.7 - 48.1 fL [facility] NRBC abs 0.00 0.00 - 0.01 K/cumm [facility] Blood 12/10/2024 1:46 PM CDT 12/10/2024 1:50 PM CDT jAay Downs MD LAB BLOOD ORDERABLES Final R esult Performing Organization Address [facility] Co de Phone Number [address] [place] [place] [address] * Antibody identification (12/10/2024 1:46 PM CDT) [facility] Antibody Identification Interpretation See Comments Comment: 12/13/2024 17:15 [id number] Current screen is negative. Unable to identify the reason for previous Positive screen. Antibody Identification Interpretation See Comments [facility] Comment: 12/10/2024 14:47 [id number] Previously identified Antibody which is currently not reacting. Blood 12/10/2024 1:46 PM CDT 12/10/2024 1:50 PM CDT Benjamin Fairbanks MD LAB BLOOD BANK TEST JENNY RIOS Edited Result - Final Performing Organization Address [facility] Co de Phone Number [address] [place] [employer] [place] [address] * ABO/Rh (12/10/2024 1:46 PM CDT) [facility] ABO/Rh A Positive Blood 12/10/2024 1:46 PM CDT 12/10/2024 1:50 PM CDT Narrative [facility] - 12/10/2024 2:38 PM CDT Is this test being ordered in advance for a procedure?->Yes Expected date of procedure:->11/26/24 Has the patient been transfused in the past 3 months?->No Result [facility] Benjamin Fairbanks MD LAB BLOOD BANK TEST JENNY RIOS Final Result Performing Organization Address [facility] de Phone Number [address] [place] [employer] [place] [address] * aPTT (12/10/2024 1:46 PM CDT) aPTT 29 22 - 37 sec Comment: Interpretive data aPTT test has not been evaluated for monitoring heparin therapy. The anti-Xa is the preferred test. Current interpretive data was last revised on 2019. Blood 12/10/2024 1:46 PM CDT 12/10/2024 1:50 PM CDT Result [facility] Benjamin Fairbanks MD LAB BLOOD ORDERABLES Fin al Result Performing Organization Address [facility] de Phone Number [address] [address] * Protime-INR (12/10/2024 1:46 PM CDT) PT 13.9 12.0 - 14.6 sec INR 1.1 0.9 - 1.2 [facility] Comment: Ref Range High Interpretive data Oral anticoagulant therapeutic ranges: Venous thromboembolism prophylaxis or treatment: 2.0-3.0 CARDIOLOGY Standard range: 2.0-3.0 High-intensity range: 2.5-3.5 Refer to indication-specific guidelines for appropriate target ranges for prosthetic heart valve replacement. Current interpretive data was last revised on 2019. Blood 12/10/2024 1:46 PM CDT 12/10/2024 1:50 PM CDT Result [facility] Benjamin Fairbanks MD LAB BLOOD ORDERABLES Fin al Result Performing Organization Address [facility] de Phone Number [address] [place] [address] * Antibody screen (12/10/2024 1:46 PM CDT) [facility] Ashlee, indirect, Gel Interpretation Negative ABSC Blood 12/10/2024 1:46 PM CDT 12/10/2024 1:50 PM CDT Narrative [facility] - 12/10/2024 2:38 PM CDT Is this test being ordered in advance for a procedure?->Yes Expected date of procedure:->11/26/24 Has the patient been transfused in the past 3 months?->No Benjamin Fairbanks MD LAB BLOOD BANK TEST ORDEnma GABRIEL Final Result [address] [place] [address] * (ABNORMAL) Comprehensive metabolic panel (12/10/2024 1:46 PM CDT) [facility] Sodium 140 135 - 145 mmol/L Potassium, pl 3.3 3.3 - 4.9 mmol/L [facility] Chloride 103 97 - 110 mmol/L [facility] CO2 25 22 - 32 mmol/L [facility] Anion gap 12 2 - 15 mmol/L [facility] BUN 19 6 - 25 mg/dL [facility] Creatinine 0.89 0.80 - 1.30 mg/dL [facility] Glucose 109 70 - 199 mg/dL [facility] Comment: Interpretive Data Fasting glucose >/= 126 mg/dl is diagnostic for diabetes. Fasting is defined as no caloric intake for at least 8 hours. Fasting glucose between 100 mg/dl to 125 mg/dl is diagnostic of prediabetes. In a patient with classic symptoms of hyperglycemia or hyperglycemic crisis, a random glucose >/= 200 mg/dl is diagnostic for diabetes. In the absence of unequivocal hyperglycemia, results should be confirmed by repeat testing. The classification and Diagnosis of Diabetes Diabetes Care 2021; 46: S19-S40. Current interpretive data was last revised 2022. Calcium 8.8 8.5 - 10.3 mg/dL [facility] Bilirubin, total 0.4 0.1 - 1.2 mg/dL [facility] Protein, pl 6.8 6.5 - 8.5 g/dL [facility] Albumin 4.1 3.5 - 5.0 g/dL [facility] Alk phos 130 40 - 130 Units/L [facility] ALT 87(H) 7 - 55 Units/L [facility] AST 54(H) 10 - 50 Units/L [facility] Blood 12/10/2024 1:46 PM CDT 12/10/2024 1:50 PM CDT us Ajay Downs MD LAB BLOOD ORDERABLES Final R esult Performing Organization Address City/State/[facility] Co de Phone Number EL[facility] [address] [facility] [place] [address] * (ABNORMAL) Oxycodone Confirmation, Urine (11/19/2024 3:59 PM CDT) Oxycodone Conf, Ur Confirmed Positive(A) CutOff 50 ng/mL Comment:Testing performed by : [facility], [address] [place]., [address] Oxymorphone Conf, Ur Does Not Confirm CutOff 50 ng/mL [facility] Comment: Interpretive Data This test detects the presence or absence of drug compounds using LC Tandem mass spectrometry and is not intended to assess compliance with prescribed medications. While this test is highly specific, false positive and false negative results may occur in very rare circumstances. Contact the laboratory for consultation, if needed. Performance characteristics were determined by the [facility] in a manner consistent with CLIA requirement and has not been cleared or approved by the U.S. Food and Drug Administration. Current interpretive data was last revised 2020. Testing performed by: [facility], [address] [place]., [address] Urine 11/19/2024 3:59 PM CDT 11/20/2024 12:50 AM CDT us Yenni Do NP LAB URINE ORDERABLES Final R esult [facility] [address] [facility] [place], [place] [id number] * (ABNORMAL) Drugs of Abuse Screen, Urine with Reflex Confirmation (11/19/2024 3:59 PM CDT) [facility] Amphetamine, ur Not Detected CutOff 500ng/mL Comment: Interpretive Data - Amphetamines: Samples containing greater than 500 ng/mL d-methamphetamine or other cross-reacting amphetamine compounds are reported as positive. Amphetamine immunoassays are subject to significant false positive rates due to cross-reactivity of non-amphetamine drugs. Confirmatory testing required for definitive results. Current Interpretive Data was last reviewed 2023. Testing performed by: [address] [address] Barbiturates, ur Not Detected CutOff 200ng/mL [facility] Comment: Interpretive Data - Barbiturates: Samples containing greater than 200 ng/mL secobarbital or other cross-reacting barbiturate compounds are reported as positive. False positive and false negative results are possible. Confirmatory testing required for definitive results. Current Interpretive Data was last reviewed 2023. Testing performed by: [address] [address] Benzodiazepines, ur Screen Positive, presumptive (A) CutOff 100ng/mL [facility] Comment: Interpretive Data - Benzodiazepines: Samples containing greater than 100 ng/mL nordiazepam or other cross-reacting compounds are reported as positive. False positive and false negative results are possible. Confirmatory testing required for definitive results. Current Interpretive Data was last reviewed 2023. Testing performed by: [address] [address] Cannabinoids, ur Not Detected CutOff 50 ng/mL [facility] Comment: Interpretive Data - Cannabinoids: Samples containing greater than 50 ng/mL delta-9 THC -COOH or other cross- reacting compounds are reported as positive. False positive and false negative results are possible. Confirmatory testing required for definitive results. Current Interpretive Data was last reviewed 2023. Testing performed by: [address] [address] Cocaine, ur Not Detected CutOff 150ng/mL [facility] Comment: Interpretive Data - Cocaine: Samples containing greater than 150 ng/mL benzoylecgonine or other cross- reacting compounds are reported as positive. False positive and false negative results are possible. Confirmatory testing required for definitive results. Current Interpretive Data was last reviewed 2023. Testing performed by: [facility], [address] [place] [address]., [address] Fentanyl, Ur Not Detected Cutoff 1 ng/mL [facility] Comment: Interpretive Data - Fentanyl: Samples containing greater than 1 ng/mL fentanyl or other cross-reacting fentanyl compounds are reported as positive. False positive and false negative results are possible. Confirmatory testing required for definitive results. Current Interpretive Data was last reviewed 2023. Testing performed by: [address] [address] Methadone, ur Not Detected CutOff 300ng/mL [facility] Comment: Interpretive Data - Methadone: Samples containing greater than 300 ng/mL d,l-methadone or other cross-reacting compounds are reported as positive. False positive and false negative results are possible. Confirmatory testing required for definitive results. Current Interpretive Data was last reviewed 2023. Testing performed by: [address] [address] Opiates, ur Not Detected CutOff 300ng/mL [facility] Comment: Interpretive Data - Opiates: Samples containing greater than 300 ng/mL morphine or other cross-reacting compounds are reported as positive. False positive and false negative results are possible. Confirmatory testing required for definitive results. Current Interpretive Data was last reviewed 2023. Testing performed by: [address] [address] Oxycodone, ur Screen Positive, presumptive (A) CutOff 100ng/mL [facility] Comment: Interpretive Data - Oxycodone: Samples containing greater than 100 ng/mL oxycodone or other cross-reacting compounds are reported as positive. False positive and false negative results are possible. Confirmatory testing required for definitive results. Current Interpretive Data was last reviewed 2023. Testing performed by: [address] [address] Phencyclidine, ur Not Detected CutOff 25 ng/mL [facility] Comment: Interpretive Data - Phencyclidine: Samples containing greater than 25 ng/mL phencyclidine or other cross-reacting compounds are reported as positive. False positive and false negative results are possible. Confirmatory testing required for definitive results. Current Interpretive Data was last reviewed 2023. Testing performed by: [address] [address] Urine Creatinine 121 mg/dL [facility] Comment: Interpretive Data Urine Creatinine: < 10 mg/dL is extremely dilute = or > 10 but < 20 mg/dL is dilute = or > 20 mg/dL is normal Current Interpretive Data was last revised on 2017. Testing performed by: [facility], [address] [place] [address]., [address] Urine 11/19/2024 3:59 PM CDT 11/19/2024 6:19 PM CDT Narrative [facility] - 11/19/2024 6:49 PM CDT Drug of Abuse screening is performed by immunoassay for medical purposes only. This is not to be used for Pain Management purposes. If Detected, confirmation testing will be performed for Amphetamines, Cocaine, Fentanyl, Methadone, Opiates, Oxycodone or Phencyclidine. us Yenni Do NP LAB URINE ORDERABLES Final R esult [facility] [address] [facility] of Laboratories [place], [place] [id number] * eGFR (11/14/2024 5:22 AM CDT) eGFR 67 >=60 mL/min/1. 73 m2 Comment: Interpretive Data Reference Interval Normal >/= 90 mL/min/1.73m2 Mildly decreased* 60 - 89 mL/min/1.73m2 Mildly to moderately decreased 45 - 59 mL/min/1.73m2 Moderately to severely decreased 30 - 44 mL/min/1.73m2 Severely decreased 15 - 29 mL/min/1.73m2 Kidney Failure < 15 mL/min/1.73m2 *Relative to young adult level Estimated glomerular filtration rate is determined by the 2020 CKD-EPI equation recommended by the National Kidney Foundation (A Unifying Approach to GFR Estimation: Recommendations of the NKF-ASK Task Force on Reassessing the Inclusion of Race in Diagnosing Kidney Disease, JASN 202). The CKD-EPI equation should not be used for patients with unstable renal function and has not been validated in children and those over 70. Current interpretive data was last reviewed 2021. Testing performed by: [address] [address] Blood 11/14/2024 5:22 AM CDT 11/14/2024 5:45 AM CDT us Parveen Callaway NP LAB BLOOD ORDERABLES Final Re sult ELIF JENSEN [facility] [place] [address] * Differential, auto (11/14/2024 5:22 AM CDT) Neutrophil abs 2.05 1.50 - 6.50 K/cumm Comment:Testing performed by : [address] [address] Imm gran abs 0.01 0.00 - 0.10 K/cumm ELIF Comment:Testing performed by : [address] [address] Lymphocyte abs 1.81 0.80 - 3.30 K/cumm ELIF Comment:Testing performed by : [address] [address] Monocyte abs 0.80 0.20 - 0.80 K/cumm ELIF Comment:Testing performed by : [address] [address] Eosinophil abs 0.23 0.00 - 0.50 K/cumm ELIF Comment:Testing performed by : [address] [address] Basophil abs 0.01 0.00 - 0.10 K/cumm [facility] Comment:Testing performed by : [address] [address] Neutrophil pct 41.7 % [facility] Comment: Interpretive Data Percent cell count reference ranges are not reported, since discordance with absolute values may lead to misinterpretation of CBC data. Current Interpretive Data was last revised on 2017. Testing performed by: [address] [address] Imm gran pct 0.2 % [facility] Comment: Interpretive Data Percent cell count reference ranges are not reported, since discordance with absolute values may lead to misinterpretation of CBC data. Current Interpretive Data was last revised on 2017. Testing performed by: [address] [address] Lymphocyte pct 36.9 % [facility] Comment: Interpretive Data Percent cell count reference ranges are not reported, since discordance with absolute values may lead to misinterpretation of CBC data. Current Interpretive Data was last revised on 2017. Testing performed by: [address] [address] Monocyte pct 16.3 % [facility] Comment: Interpretive Data Percent cell count reference ranges are not reported, since discordance with absolute values may lead to misinterpretation of CBC data. Current Interpretive Data was last revised on 2017. Testing performed by: [address] [address] Eosinophil pct 4.7 % [facility] Comment: Interpretive Data Percent cell count reference ranges are not reported, since discordance with absolute values may lead to misinterpretation of CBC data. Current Interpretive Data was last revised on 2017. Testing performed by: [address] [address] Basophil pct 0.2 % [facility] Comment: Interpretive Data Percent cell count reference ranges are not reported, since discordance with absolute values may lead to misinterpretation of CBC data. Current Interpretive Data was last revised on 2017. Testing performed by: [address] [address] Blood 11/14/2024 5:22 AM CDT 11/14/2024 5:45 AM CDT Sherrywin Saner STADI[employer] ATTENDANT LAB BLOOD ORDERABLES Final Re sult [facility] [address] [facility] [place] [address] * CBC with auto differential (11/14/2024 5:22 AM CDT) WBC 4.91 3.80 - 9.90 K/cumm Comment:Testing performed by : [address] [address] Hgb 14.3 13.0 - 17.5 g/dL EL[facility] Comment:Testing performed by : [address] [address] Hct 42.5 38.9 - 50.3 % ELIF Comment:Testing performed by : [address] [address] Plt 228 150 - 400 K/cumm ELIF Comment:Testing performed by : [address] [address] MPV 11.0 9.1 - 12.3 fL ELIF Comment:Testing performed by : [address] [address] RBC 5.02 4.30 - 5.80 M/cumm ELIF Comment:Testing performed by : [address] [address] MCV 84.7 81.3 - 96.4 fL EL[facility] Comment:Testing performed by : [address] [address] MCH 28.5 27.1 - 33.3 pg ELIF Comment:Testing performed by : [address] [address] MCHC 33.6 32.3 - 35.7 g/dL EL[facility] Comment:Testing performed by : [address] [address] RDW CV 13.6 11.1 - 14.9 % ELIF Comment:Testing performed by : [address], [address] RDW SD 41.8 35.7 - 48.1 fL ELIF JENSEN Comment:Testing performed by : [address] [address] NRBC abs 0.00 0.00 - 0.01 K/cumm ELIF JENSEN Comment:Testing performed by : [address] [address] Blood 11/14/2024 5:22 AM CDT 11/14/2024 5:45 AM CDT Parveen Callaway NP LAB BLOOD ORDERABLES Final Re sult Performing Organization Address City/[facility] Co de Phone Number [address] [place] [address] * Phosphorus (11/14/2024 5:22 AM CDT) Phosphorus, pl 4.5 2.3 - 4.5 mg/dL Comment:Testing performed by : [address] [address] Blood 11/14/2024 5:22 AM CDT 11/14/2024 5:45 AM CDT [address] MD LAB BLOOD ORDERABL ES Final Result Performing Organization Address [facility] Co de Phone Number [address] [address] * (ABNORMAL) Comprehensive metabolic panel (11/14/2024 5:22 AM CDT) Sodium 140 135 - 145 mmol/L Comment:Testing performed by : [address] [address] Potassium, pl 3.6 3.3 - 4.9 mmol/L ELIF JENSEN Comment:Testing performed by : [address] [address] Chloride 101 97 - 110 mmol/L EL[facility] JENSEN Comment:Testing performed by : [address] [address] CO2 29 22 - 32 mmol/L EL[facility] JENSEN Comment:Testing performed by : [address] [address] Anion gap 10 2 - 15 mmol/L EL[facility] Comment:Testing performed by : [address] [address] BUN 19 6 - 25 mg/dL EL[facility] Comment:Testing performed by : [address] [address] Creatinine 1.20 0.80 - 1.30 mg/dL [facility] Comment:Testing performed by : [address] [address] Glucose 107 70 - 199 mg/dL [facility] Comment: Interpretive Data Fasting glucose >/= 126 mg/dl is diagnostic for diabetes. Fasting is defined as no caloric intake for at least 8 hours. Fasting glucose between 100 mg/dl to 125 mg/dl is diagnostic of prediabetes. In a patient with classic symptoms of hyperglycemia or hyperglycemic crisis, a random glucose >/= 200 mg/dl is diagnostic for diabetes. In the absence of unequivocal hyperglycemia, results should be confirmed by repeat testing. The classification and Diagnosis of Diabetes Diabetes Care 202; 46: S19-S40. Current interpretive data was last revised 2022. Testing performed by: [address] [address] Calcium 9.4 8.5 - 10.3 mg/dL ELIF Comment:Testing performed by : [address] [address] Bilirubin, total 0.4 0.1 - 1.2 mg/dL ELIF Comment:Testing performed by : [address] [address] Protein, pl 6.6 6.5 - 8.5 g/dL ELIF Comment:Testing performed by : [address] [address] Albumin 4.0 3.5 - 5.0 g/dL ELIF Comment:Testing performed by : [address] [address] Alk phos 106 40 - 130 Units/L ELIF Comment:Testing performed by : [address] [address] ALT 70(H) 7 - 55 Units/L ELIF Comment:Testing performed by : [facility], [address] [place] [address]., [address] AST 42 10 - 50 Units/L ELIF Comment:Testing performed by : [address] [address] Blood 11/14/2024 5:22 AM CDT 11/14/2024 5:45 AM CDT us Parveen Callaway NP LAB BLOOD ORDERABLES Final Re sult [address] [place] [address] * PSA screen (10/23/2024 2:14 PM CDT) PSA-Total 1.50 <=5.40 ng/mL Comment: Interpretive Data AGE SEX REFERENCE INTERVAL 0 minutes-150 years Female None 0 minutes-49 years Male None 50-59 years Male 0-3.90 60-69 years Male 0-5.40 70-79 years Male 0-6.20 80-150 years Male 0-6.20 The Kennedy PSA Total assay procedure was used. Results from different manufacturers or methods may not be comparable. Serial testing should be performed using the same method. Current interpretive data last revised 21. Testing performed by: [address] [address] Blood 10/23/2024 2:14 PM CDT 10/23/2024 4:25 PM CDT us Butch De Souza Jr., MD LAB BLOOD ORDERABLES Final Result [address] [place] [place] [address] * Hepatitis panel, acute Blood (07/19/2024 9:26 AM FARM IMPLEMENT MECHANIC) Hep A IgM Nonreactive Nonreactive Comment: Interpretive Data: If Hep A IgM Ab is reported as Equivocal, a new sample should be drawn in two weeks for testing. Current interpretive data was last revised on 19. Hep B core IgM Nonreactive Nonreactive [facility] Comment: Interpretive Data If HepB Core IgM Ab is reported as Equivocal, a new sample should be drawn in two weeks for testing. Current interpretive data was last revised on 19. Hep C Ab Nonreactive Nonreactive [facility] Comment: Antibodies to HCV not detected. Does NOT exclude the possibility of recent exposure to HCV. Current interpretive data was last revised on 22 Interpretive Data Nonreactive: Antibodies to HCV not detected. Does NOT exclude the possibility of recent exposure to HCV. Equivocal: Equivocal for HCV antibodies. Supplemental molecular testing will be automatically performed to determine infection status in accordance with current CDC screening recommendations. Reactive: Positive for HCV antibodies. This may represent current or past HCV infection. Supplemental molecular testing will be automatically performed to determine current infection status in accordance with current CDC screening recommendations. Interpretive data was last revised on 2019. HepBsAg Nonreactive Nonreactive [facility] Blood 07/19/2024 9:26 AM FARM IMPLEMENT MECHANIC 07/19/2024 2:49 PM FARM IMPLEMENT MECHANIC Butch De Souza Jr., MD LAB MICROBIOLOGY - [facility] ORDERABLES Final Result EL[facility] [address] [facility] [place] [address] * (ABNORMAL) COLONOSCOPY (11/17/2023) Scribed Colonoscopy Abnormal Historical Provider HEALTH MAINTENANCE Final Result from Last 3 Months or Most Recently Relevant to Health Maintenance Additional Health Concerns Active Problems Noted Date Diagnosed Date Autogenerated Problem 11/28/2024 Insurance [place]IC[place] [employer] [facility] Advance Directives For more information, please contact: [phone] Documents on File Type Date Recorded Patient Account Receivable Associate Expl anation Power of Doctor Of Naprapathy 12/24/2024 5:17 AM * Full Code (Latest Code Status on File) Date Activated Date Inactivated Comments 11/08/2024 4:52 PM 11/14/2024 4:51 PM * Full Code Date Activated Date Inactivated Comments 07/30/2024 9:37 AM 08/09/2024 5:46 PM * Full Code Date Activated Date Inactivated Comments 11/28/2023 11:14 AM 11/28/2023 5:07 PM * Full Code Date Activated Date Inactivated Comments 11/17/2023 9:02 AM 11/17/2023 3:20 PM * Full Code Date Activated Date Inactivated Comments 11/09/2022 7:53 AM 11/10/2022 6:46 PM Care Teams Boil Off Worker Relationship Specialty Start Date End Date Butch De Souza Jr., MD [address] [address] [place] [address] PCP - General Internal Medicine 06/17/21 Yessica Worthy MD [address] [facility] [address] [place] [address] Referring Physician Rheumatology 06/17/21 [place] [address] [place] [address] Consulting Physician Gastroenterology 06/17/21 [place] [address] [facility] [address] [place] [address] Consulting Physician Cardiovascular Disease 07/09/24 Grey Hand RN [address] [place] [address] [address] [place] [address] Production Control Scheduler 08/12/24 [place] [address] [address] [facility] [address] [place] [address] Consulting Physician Pulmonary Disease 12/10/24
--- OUTSIDE RECORDS SUMMARY | 2025-02-14 13:33 | XMS_ITS | Encounter Summary ---
Author Organization [facility] Address [address] [place] [address] Phone Care Team Providers Care Floor Manager Name Role Phone Swathi Golden RN Unavailable Unavailab Heydi Razo MD Primary Care Provider Heydi Hood MD Primary Care Provider Nolvia Olivares MD, Butch Cross Primary Care Provide r Sheri Mac MD Unavailable Yessica Worthy MD Unavailable Tonny Yoon MD Unavailable Cortney García RN Unavailable [phone] Ajay Downs MD Unavailable Grey Hand RN Unavailable Kodi Griggs MD Unavailable Encounter Details Date Type Department Care Team (Late st Contact Info) Description 09/21/2018 Orders Only [facility] Scanning, Provider Social History Tobacco Use Types Packs/Day Years Used Date Smoking Tobacco: Never Smokeless Tobacco: Never Alcohol Use Standard Drinks/Week Comments No 0 (1 standard drink = 0.6 oz pur e alcohol) Sex and Gender Information Value Date Recorded Sex Assigned at Not on file Legal Sex Male 11:58 PM 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 Gender Identity Not on file Sexual Orientation Not on file documented as of this encounter Plan of Treatment Upcoming Encounters Date Type Department Care Team (Latest Contact Info) Description 03/04/2025 7:30 AM CDT Hospital Encounter [facility] Electrophysiology Lab [address] [place] [address] Estuardo Aquino MD [address] [place] [address] NSVT (nonsustained ventricular tachycardia) (HCC); PVC (premature ventricular contraction) 03/04/2025 7:30 AM CDT - 03/04/2025 3:50 PM CDT Surgery [facility] Electrophysiology Lab [address] [place] [address] Estuardo Aquino MD [address] [place] [address] ABLATION VENTRICULAR TACHYCARDIA (VT) INCLUDES 3D MAPPING (WHEN USED) [id number] documented as of this encounter Procedures Procedure Name Priority Date/Time Associated Diagnosis Comments SCAN - LABS 09/21/2018 documented in this encounter Results * SCAN - LABS (09/21/2018) us Provider Scanning Final Result documented in this encounter Visit Diagnoses Not on filedocumented in this encounter Additional Health Concerns Infection Onset Date Last Indicated Resolved Time COVID: Suspected 06/14/2021 06/14/2021 06/14/2021 7:24 PM 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 COVID: Suspected 01/16/2022 01/16/2022 01/16/2022 7:20 PM CDT COVID: Suspected 08/22/2022 08/22/2022 08/22/2022 9:42 AM 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 COVID: Suspected 08/04/2024 08/04/2024 08/04/2024 3:41 PM 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 COVID: Suspected 08/05/2024 08/05/2024 08/05/2024 1:23 PM 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 Rhino/Enterovirus 11/08/2024 11/08/2024 11/15/2024 3:05 AM CDT documented as of this encounter Care Teams Floor Manager Relationship Specialty Start Date End Date Heydi Hood MD [address] [facility] [address] [address] PCP - General Family Medicine 03/03/21 06/13/21 Heydi Hood MD [address] [facility] [address] [address] PCP - General 06/14/21 06/16/21 Butch De Souza Jr., MD [address] [place] [address] PCP - General Internal Medicine 06/17/21 Swathi Golden RN Registered Nurse 04/15/19 01/18/23 Sheri Mac MD [address] [place] [id number] Endocrinology 06/17/21 12/09/24 Yessica Worthy MD [address] [facility] [address] [place] [address] Referring Physician Rheumatology 06/17/21 [place] [address] [place] [address] Consulting Physician Gastroenterology 06/17/21 Cortney García, LEBRON [address] [place] [address] [facility] [address] [place] [address] Control Cabinet Assembler 11/09/23 05/30/24 [place] [address] [facility] [address] [place] [address] Consulting Physician Cardiovascular Disease 07/09/24 Grey Hand RN [address] [place] [address] [address] [place] [address] Control Cabinet Assembler 08/12/24 [place] [address] [address] [place] [address] Consulting Physician Pulmonary Disease 12/10/24 documented as of this encounter
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
--- OUTSIDE RECORDS SUMMARY | 2025-02-14 13:33 | XMS_ITS | Encounter Summary ---
Author Organization [facility] Healthcare Address [address] [place] [address] Care Team Providers Care Aerospace Quality Engineer Name Role Phone Swathi Golden RN Unavailable Unavailab Heydi Razo MD Primary Care Provider Heydi Hood MD Primary Care Provider Nolvia Olivares MD, Butch Cross Primary Care Provide r Sheri Mac MD Unavailable Yessica Worthy MD Unavailable Tonny Yoon MD Unavailable Cortney García RN Unavailable [phone] Ajay Downs MD Unavailable Grey Hand RN Unavailable [phone] Kodi Griggs MD Unavailable Encounter Details Date Type Department Care Team (Late st Contact Info) Description 11/06/2017 Orders Only [facility] Information Management [address] [place] [id number] Scanning, Provider Social History Tobacco Use Types Packs/Day Years Used Date Smoking Tobacco: Never Smokeless Tobacco: Never Alcohol Use Standard Drinks/Week Comments No 0 (1 standard drink = 0.6 oz pur e alcohol) Sex and Gender Information Value Date Recorded Sex Assigned at Not on file Legal Sex Male 11:58 PM MEDICAL CODING 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 Gender Identity Not on file Sexual Orientation Not on file documented as of this encounter Plan of Treatment Upcoming Encounters Date Type Department Care Team (Latest Contact Info) Description 03/04/2025 7:30 AM CDT Hospital Encounter [facility] [address] [place] [address] Estuardo Aquino MD [address] [place] [address] NSVT (nonsustained ventricular tachycardia) (HCC); PVC (premature ventricular contraction) 03/04/2025 7:30 AM CDT - 03/04/2025 3:50 PM CDT Surgery [facility] [address] [place] [address] Estuardo Aquino MD [address] [place] [id number] ABLATION VENTRICULAR TACHYCARDIA (VT) INCLUDES 3D MAPPING (WHEN USED) [id number] documented as of this encounter Procedures Procedure Name Priority Date/Time Associated Diagnosis Comments CARDIOLOGY DOCUMENT SCAN 11/06/2017 documented in this encounter Results * Cardiology Document Scan (11/06/2017) Anatomical Region Laterality Modality Other us Provider Scanning CV CARDIAC SERVICES PROCEDURES Final Result documented in this encounter Visit Diagnoses Not on filedocumented in this encounter Additional Health Concerns Infection Onset Date Last Indicated Resolved Time COVID: Suspected 06/14/2021 06/14/2021 06/14/2021 7:24 PM MEDICAL CODING AUDITOR COVID: Suspected 01/16/2022 01/16/2022 01/16/2022 7:20 PM CDT COVID: Suspected 08/22/2022 08/22/2022 08/22/2022 9:42 AM MEDICAL CODING AUDITOR COVID: Suspected 08/04/2024 08/04/2024 08/04/2024 3:41 PM MEDICAL CODING AUDITOR COVID: Suspected 08/05/2024 08/05/2024 08/05/2024 1:23 PM MEDICAL CODING AUDITOR Rhino/Enterovirus 11/08/2024 11/08/2024 11/15/2024 3:05 AM CDT documented as of this encounter Care Teams Aerospace Quality Engineer Relationship Specialty Start Date End Date Heydi Hood MD [address] [facility] [address] [address] PCP - General Family Medicine 03/03/21 06/13/21 Heydi Hood MD [address] [facility] [address] [address] PCP - General 06/14/21 06/16/21 Butch De Souza Jr., MD [address] [place] [address] PCP - General Internal Medicine 06/17/21 Swathi Golden RN Registered Nurse 04/15/19 01/18/23 Sheri Mac MD [address] [place] [id number] Endocrinology 06/17/21 12/09/24 Yessica Worthy MD [address] [facility] [address] [place] [address] Referring Physician Rheumatology 06/17/21 [place] [address] [place] [address] Consulting Physician Gastroenterology 06/17/21 Cortney García, LEBRON [address] [place] [address] [address] [place] [address] Ecommerce Merchandising Manager 11/09/23 05/30/24 [place] [address] [address] [facility] [address] [place] [address] Consulting Physician Cardiovascular Disease 07/09/24 Grey Hand RN [address] [place] [address] [address] [place] [address] Ecommerce Merchandising Manager 08/12/24 [place] [address] [address] [facility] [facility] [address] [place] [address] Consulting Physician Pulmonary Disease 12/10/24 documented as of this encounter
--- OUTSIDE RECORDS SUMMARY | 2025-02-14 13:33 | XMS_ITS | Clinical Summary ---
Author Organization [facility] Address [address] [facility] [address] [place] [address] Phone Care Team Providers Care E Learning Developer Name Role Phone Nolvia Olivares MD, Butch Sanches Primary Care Provider Allergies Active Allergy Reactions Criticality Noted Date Comments Aripiprazole Unknown 05/22/2020 Hydroxychloroquine Other (See Comments) 020 Damage eye muscles Methotrexate Hepatic Dysfunction Medium 05/22/2020 Sumatriptan Palpitations Low 05/22/2020 Zolpidem Other (See Comments) 05/22/2020 Sleep walking Medications atorvastatin (LIPITOR) 40 mg tablet Take 1 Tablet by mouth daily at bedtime. 0 Active fenofibrate (LOFIBRA) 160 mg Tablet Take 160 mg by mouth daily at bedtime. Active doxepin (SINEquan) 25 mg capsule Take 1 Capsule by mouth daily at bedtime. 0 Active Vascepa 1 gram Capsule Take 1 Capsule by mouth daily. 0 Active QUEtiapine (SEROquel) 300 mg tablet Take 600 mg by mouth daily at bedtime. 0 Active venlafaxine (EFFEXOR XR) 150 mg Extended Release 24 hour capsule Take 2 Capsules by mouth daily. 0 Active Trintellix 10 mg tablet Take 1 Tablet by mouth daily. 0 Active pantoprazole (PROTONIX) 40 mg Tablet, Delayed Release (E.C.) Take 1 Tablet by mouth daily. 0 Active oxyCODONE-aceta minophen (PERCOCET) 10-325 mg Tablet Take 1 Tablet by mouth 4 times daily as needed. 0 Active omega 3-ekl-emh-fish oil 360-1,200 mg Capsule, Delayed Release(E.C.) Take 1,200 mg by mouth daily. Active amLODIPine (NORVASC) 10 mg tablet Take 1 Tablet by mouth daily. 0 Active sotaloL (BETAPACE) 80 mg tablet Take 0.5 Tablets (40 mg) by mouth 2 times daily. 30 Tablet 0 Active apixaban (ELIQUIS) 5 mg tablet Take 5 mg by mouth 2 times daily. Active semaglutide (Ozempic) 1 mg/dose (2 mg/1.5 mL) Pen Injector Inject by subcutaneous injection. Active finasteride (PROSCAR) 5 mg tablet Take 1 Tablet (5 mg) by mouth daily. 30 Tablet 1 3 Active Lidocaine 4 % Adhesive Patch, Medicated Apply to posterior neck daily 7 Patch 3 Active Active Problems Problem Noted Date Diagnosed Date Vasovagal syncope 07/11/2022 GERD (gastroesophageal reflux disease) 3 Paroxysmal atrial fibrillation 05/21/2020 Morbid obesity with body mass index of 40.0-49.9 05/21/2020 History of TIA (transient ischemic attack) 05/21 Poorly-controlled hypertension 05/21/2020 LJ on CPAP 05/21/2020 Dyslipidemia 05/21/2020 Anxiety 12/04/2017 Depression with anxiety History of rheumatoid arthritis BPH (benign prostatic hyperplasia) Resolved Problems Problem Noted Date Diagnosed Date Resolved Date Stroke-like symptoms 05/21/2020 023 Elevated liver enzymes 05/21/202007/11 Anemia, unspecified 05/21/2020 07/11/19 23 Subtherapeutic international normalized ratio (INR) 05/21/2020 07/11/2022 GYPSY (acute kidney injury) 05/21/2020 Chronic midline low back anu n without sciatica 07/11/2022 Right sided weakness 023 Family History Medical History Relation Name Comments Heart Disease Sister Relation Name Status Comments Father Mother Alive Sister Social History Tobacco Use Types Packs/Day Years Used Date Smoking Tobacco: Never Smokeless Tobacco: Never Alcohol Use Standard Drinks/Week Comments Not Currently 0 (1 standard drink = 0.6 oz pur e alcohol) Sex and Gender Information Value Date Recorded Sex Assigned at Not on file Legal Sex Male 3:45 PM CDT Gender Identity Not on file Sexual Orientation Not on file Last Filed Vital Signs Vital Sign Reading Time Taken Comments Blood Pressure 102/59 07/13/2022 3:53 PM PROFESSOR OF ENVIRONMENTAL ENGINEERING Pulse 65 07/13/2022 3:51 PM PROFESSOR OF ENVIRONMENTAL ENGINEERING Temperature 36.6 C (97.8 F) 07/13/2022 3:51 PM PROFESSOR OF ENVIRONMENTAL ENGINEERING Respiratory Rate 18 07/13/2022 3:51 PM PROFESSOR OF ENVIRONMENTAL ENGINEERING Oxygen Saturation 98% 07/13/2022 3:51 PM PROFESSOR OF ENVIRONMENTAL ENGINEERING Inhaled Oxygen Concentration - - Weight 149.7 kg (330 lb) 05/10/2022 3:44 PM PROFESSOR OF ENVIRONMENTAL ENGINEERING Height 190.5 cm (6' 3) 05/10/2022 3:44 PM PROFESSOR OF ENVIRONMENTAL ENGINEERING Body Mass Index 41.25 05/10/2022 3:44 PM PROFESSOR OF ENVIRONMENTAL ENGINEERING Plan of Treatment Health Maintenance Due Date Last Done Comments COLORECTAL SCREENING 2003 Colorectal Cancer Screening 2003 FIT-DNA Q 3 years 2003 FIT/FOBT Q 1 year 2003 Flex Sig/CT Colonography Q 5 years 2003 PNEUMOCOCCAL VACCINE 50+ YEA RS (1 of 1 - PCV) 2008 ZOSTER VACCINE (1 of 2) 2008 RSV VACCINE (60+ or ) (1 - Risk 60-74 years 1-dose series) 2018 Pre-Diabetes and Diabetes Screening 05/21/202305/21 INFLUENZA VACCINE (#1) 2025 DTAP/TDAP/TD VACCINES (3 - Td or Tdap) 05/16/2030, 02/23/2015 Procedures Procedure Name Priority Date/Time Associated Diagnosis Comments HEMOGLOBIN A1C Stat 05/21/2020 4:21 PM PROFESSOR OF ENVIRONMENTAL ENGINEERING from Last 3 Months or Most Recently Relevant to Health Maintenance Results * HEMOGLOBIN A1C (05/21/2020 4:21 PM PROFESSOR OF ENVIRONMENTAL ENGINEERING) HEMOGLOBIN A1C 5.5 <=5.6 % 05/22/2020 3:04 AM PROFESSOR OF ENVIRONMENTAL ENGINEERING [facility] EST. AVG GLUCOSE, A1C 111 mg/dL 05/22/2020 3:04 AM PROFESSOR OF ENVIRONMENTAL ENGINEERING [facility] Blood Venipuncture / Unknown 05/21/2020 4:21 PM PROFESSOR OF ENVIRONMENTAL ENGINEERING 05/21/2020 4:29 PM PROFESSOR OF ENVIRONMENTAL ENGINEERING Narrative [facility] - 05/22/2020 3:04 AM PROFESSOR OF ENVIRONMENTAL ENGINEERING HGB A1C INTERPRETATION NORMAL: <5.7% PRE-DIABETES: 5.7 - 6.4% DIABETES: 6.5% OR GREATER us Albert Allred MD CHEMISTRY ORDERABLES Final Res ult [facility] CLIA# [id number] [place] [address] from Last 3 Months or Most Recently Relevant to Health Maintenance Insurance MEDICARE PART A AND B [facility] BLUE ACCESS/TRUE BLUE PPO Advance Directives For more information, please contact: [phone] * Full Code (Latest Code Status on File) Date Activated Date Inactivated Comments 07/11/2022 5:49 PM 07/13/2022 7:24 PM * Full Code Date Activated Date Inactivated Comments 03/30/2022 12:44 PM 03/30/2022 8:02 PM * Full Code Date Activated Date Inactivated Comments 05/22/2020 6:25 AM 05/23/2020 7:43 PM Care Teams E Learning Developer Relationship Specialty Start Date End Date Butch De Souza Jr., MD [address] [place] [phone] PCP - General Internal Medicine 05/10/22
--- OUTSIDE RECORDS SUMMARY | 2025-02-14 13:33 | XMS_ITS | Clinical Summary ---
Author Organization [facility] Facility Address [address] [place] [address] Care Team Providers Care Vegetable Cutter Name Role Phone Unavailable Primary Care Provider Unavailabl e Medications apixaban (ELIQUIS) 5 MG tablet Take 1 tablet (5 mg total) by mouth in the morning and 1 tablet (5 mg total) in the evening. 180 tablet 1 3 Active aMILoride (MIDAMOR) 5 MG tablet Take 1 tablet (5 mg total) by mouth every night 90 tablet 1 3 Active losartan (COZAAR) 100 MG tablet Take 1 tablet (100 mg total) by mouth every night 90 tablet 1 3 Active spironolactone (ALDACTONE) 25 MG tablet Take 1 tablet (25 mg total) by mouth 1 (one) time daily 60 minutes before breakfast 45 tablet 1 4 Active olmesartan (BENICAR) 20 MG tablet Take 1 tablet (20 mg total) by mouth every night 90 tablet 1 4 Active chlorthalidone 25 MG tablet Take 1 tablet (25 mg total) by mouth 1 (one) time each day in the morning 90 tablet 1 4 Active Social History Tobacco Use Types Packs/Day Years Used Date Smoking Tobacco: Never Assessed Sex and Gender Information Value Date Recorded Sex Assigned at Not on file Legal Sex Male 4:03 PM EDT Gender Identity Not on file Sexual Orientation Not on file Last Filed Vital Signs Vital Sign Reading Time Taken Comments Blood Pressure 160/80 08/04/2023 10:04 AM WOOD PRODUCTS MANUFACTURER Pulse 86 08/04/2023 10:04 AM WOOD PRODUCTS MANUFACTURER Temperature 36.1 C (97 F) 08/04/2023 10:04 AM WOOD PRODUCTS MANUFACTURER Respiratory Rate 18 08/04/2023 10:04 AM WOOD PRODUCTS MANUFACTURER Oxygen Saturation 99% 08/04/2023 10:04 AM WOOD PRODUCTS MANUFACTURER Inhaled Oxygen Concentration - - Weight 149 kg (329 lb) 08/04/2023 10:04 AM WOOD PRODUCTS MANUFACTURER Height 190.5 cm (6' 3) 02/02/2022 10:07 AM CDT Body Mass Index 41.12 02/02/2022 10:07 AM CDT Plan of Treatment Health Maintenance Due Date Last Done Comments Pneumococcal Vaccine: 50+ Ye ars (1 of 2 - PCV) 1977 Colorectal Cancer Screening: Annual FOBT 2007 Colorectal Cancer Screening: Colonoscopy 2007 Colorectal Cancer Screening: Sigmoidoscopy 2007 Hepatitis B Vaccine (1 of 3 - Risk 3-dose series) 2018 Diabetes: Ophthalmology Exam 04/24/2023 Diabetes: Pedal Pulse Checked 04/24/2023 Diabetes: Sensory Foot Exam 04/24/2023 Diabetes: Visual Foot Exam 04/24/2023 Diabetes: Hemoglobin A1C 10/17/2023 024, 01/25/2023, 08/11/2022, Additional history exists Influenza Vaccine (#1) 2025 0, 04/11/2019, 04/30/2018, Additional history exists Procedures Procedure Name Priority Date/Time Associated Diagnosis Comments HEMOGLOBIN A1C Routine 07/18/2023 8:45 AM WOOD PRODUCTS MANUFACTURER from Last 3 Months or Most Recently Relevant to Health Maintenance Results * Hemoglobin A1c (07/18/2023 8:45 AM WOOD PRODUCTS MANUFACTURER) Hemoglobin A1C 5.2 <5.7 % [facility] Comment: For the purpose of screening for the presence of diabetes: <5.7% Consistent with the absence of diabetes 5.7-6.4% Consistent with increased risk for diabetes (prediabetes) > or =6.5% Consistent with diabetes This assay result is consistent with a decreased risk of diabetes. Currently, no consensus exists regarding use of hemoglobin A1c for diagnosis of diabetes in children. According to [place] Diabetes Association (ADA) guidelines, hemoglobin A1c <7.0% represents optimal control in non- diabetic patients. Different metrics may apply to specific patient populations. Standards of Medical Care in Diabetes(ADA). HbA1c performed on [employer] platform. 07/18/2023 8:45 AM WOOD PRODUCTS MANUFACTURER 07/18/2023 8:47 AM WOOD PRODUCTS MANUFACTURER Narrative [facility] - 07/19/2023 11:03 AM WOOD PRODUCTS MANUFACTURER FASTING:YES FASTING: YES Jez Haines DO LAB BLOOD ORDERABLES Final R esult [facility] [address] [place] [address] from Last 3 Months or Most Recently Relevant to Health Maintenance Insurance Medicare [facility]
--- OUTSIDE RECORDS SUMMARY | 2025-02-14 13:33 | XMS_ITS | Encounter Summary ---
Author Organization [employer] [facility] , [facility] Address [facility] [address] Phone Care Team Providers Care Auto Camp Attendant Name Role Phone Unavailable Primary Care Provider Unavailabl e Reason for Visit * Reason Comments Med Refill Encounter Details Date Type Department Care Team (Late st Contact Info) Description 03/01/2024 Refill [facility] [employer] [facility], [address] [address] Jez Haines DO [address] [address] Social History Tobacco Use Types Packs/Day Years Used Date Smoking Tobacco: Never Assessed Sex and Gender Information Value Date Recorded Sex Assigned at Not on file Legal Sex Male 4:03 PM EDT Gender Identity Not on file Sexual Orientation Not on file documented as of this encounter Plan of Treatment Not on file documented as of this encounter Visit Diagnoses Not on filedocumented in this encounter
--- OUTSIDE RECORDS SUMMARY | 2025-02-14 13:33 | XMS_ITS | Continuity of Care Document ---
Author Organization [facility] [place] [place] Address [address] [facility] [address] [address] Phone Care Team Providers Care Vendor Manager Name Role Phone Jayme Ashley MD, MD [...] Diagnoses Date Provider Providers Copied on Encounter [facility] [employer] [facility], [id number] [place] [address] [address], [place], [place], [id number], tel:[phone] [facility] No Information 5 Gabi Delacruz. [address] [facility], [address], [facility], [place]. tel:[phone] [facility] [employer] [facility], [address], [place], [place], [id number], [place] tel:[phone] SEC Rip Maxwell No Information 5 Gabi Delacruz. [address] [facility], [address], [place], [address], [place]. tel:[phone] [facility], [address], [place], [place], [id number], tel:[phone] [facility] [place] No Information 0 5 Gabi Delacruz. [address], [address], [place], [place], [facility], . tel:[phone] [facility], [address], [place], [place], [id number], tel:[phone] [address] [place] [address] [place] No Information 5 Gabi Delacruz. [address], [address], [place], [place], [facility], . tel:[phone] [facility], [address], [place], [place], [id number], tel:[phone] [address] [place] [address] [place] No Information 5 Gabi Delacruz. [address] [facility], [address], [place], [place], [facility], . tel:[phone] [facility], [address], [place], [place], [id number], [place] [phone] SEC Augie HINDS Professional blurry vision (chief complaint) Nuclear sclerosis 5 Gabi Delacruz. [address], [address], [place], [place], [facility], . [phone] Referring Provider: Nato Hernandez OD F, [address] [facility] [address], [place], [address]. tel:[phone] [facility], [address], [place], [place], [id number], [place] tel:[phone] SEC Augie HINDS Professional No Information 5 Gabi Delacruz. [address], [address], [place], [place], [facility], . [phone] Family History Family Member Type Diagnosis Age At Onset No Information Payers Payer name Insurance type Covered constitution party ID Authoriza tion(s) [place] [id number] [facility] [place] Out Of [place] [id number] Social History Type Description Quantity Date Captured [...]
--- OUTSIDE RECORDS SUMMARY | 2025-02-14 13:33 | XMS_ITS | Encounter Summary ---
Author Organization [facility] Address [address] [place] [address] Care Team Providers Care Musical Therapist Name Role Phone Nolvia Olivares MD, Butch Cross Primary Care Provide r Yessica Worthy MD Unavailable [phone] Tonny Yoon MD Unavailable [phone] Ajay Downs MD Unavailable [phone] Grey Hand RN Unavailable [phone] Kodi Griggs MD Unavailable Reason for Referral * Sleep Medicine (Routine) - Closed Specialty Diagnoses / Procedures Referred By Cecil johnson Referred To Contact Diagnoses LJ on CPAP Procedures PSG-Sleep Provider Use Only Genesis Aguirre MD [address] [place] [address] DR GRAHAM Kingston [address] [address] Phone: tel: fax: [address] [address] Referral ID Status Reason Start Date Expiration Date Visits Re quested Visits Authorized [id number] Closed 01/30/2025 03/01/2026 1 1 Reason for Visit * Sleep Medicine (Routine) - Closed Specialty Diagnoses / Procedures Referred By Cecil johnson Referred To Contact Diagnoses LJ on CPAP Procedures PSG-Sleep Provider Use Only Genesis Aguirre MD [address] [place] [address] DR GRAHAM Kingston [address] [address] Phone: tel: fax: [facility] [address] [place] [address] Referral ID Status Reason Start Date Expiration Date Visits Re quested Visits Authorized [id number] Closed 01/30/2025 03/01/2026 1 1 Encounter Details Date Type Department Care Team (Latest Contact Info) Description 02/12/2025 7:00 PM CDT - 02/12/2025 11:59 PM CDT Hospital Encounter [facility] [address] [place] [address] Obstructive sleep apnea syndrome Discharge Disposition: Discharge to home or self care Social History Tobacco Use Types Packs/Day Years Used Date Smoking Tobacco: Never Passive Smoke Exposure: Never Smokeless Tobacco: Never Alcohol Use Standard Drinks/Week Comments Never 0 (1 standard drink = 0.6 oz pur e alcohol) [facility] Utilities Answer Date Recorded In the past 12 months has e electric, gas, oil, or water company [...] often do you attend chur ch or mosque services? Never 11/11/2024 Do you belong to any clubs o r organizations such as gnosticist groups, unions, fraternal or athletic groups, or [...] place to sleep or slept in a halfway (including now)? No 11/18/2023 PHQ-9 Answer Date [...] any time in the past 12 m [facility], were you homeless or living in a halfway (including now)? 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 Gender Identity Not on file Sexual Orientation Not on file documented as of this encounter Medications at Time of Discharge albuterol HFA (PROVENTIL HFA,VENTOLIN HFA,PROAIR HFA) 90 mcg/actuation inhaler Inhale 2 puffs every 6 (six) hours as needed for wheezing 3 each 4 06/04/2024 5 apixaban (ELIQUIS) 5 mg tablet Take 1 tablet (5 mg total) by mouth 2 (two) times a day 02/01/2023 atogepant (Qulipta) 60 mg tablet Take by mouth as needed (heandaches) atorvastatin (LIPITOR) 40 mg tablet Take 1 tablet (40 mg total) by mouth daily 30 tablet 11 08/09/2024 6 cephalexin (KEFLEX) 250 mg capsuleIndications :Wound infection after surgery TAKE 2 CAPSULES(500 MG) BY MOUTH TWICE DAILY FOR 10 DAYS 40 capsule 02/03/2025 ciclopirox 1 % shampoo Apply 1 Application topically 2 (two) times a week SHAMPOO SCALP 1-2 TIMES A WEEK. APPLY FOR 3-5 MINUTES THEN WASH OFF. 11/01/2024 cloNIDine (CATAPRES) 0.1 mg tablet Take 1 tablet (0.1 mg total) by mouth 3 (three) times a day as needed for high blood pressure Take 1 time for BP >170/90 10/14/2024 cyanocobalamin (Vitamin B-12) 1,000 mcg sublingual tablet Take 3 tablets (3,000 mcg total) by mouth daily cyclobenzaprine (FLEXERIL) 10 mg tablet Take 1 tablet (10 mg total) by mouth 3 (three) times a day as needed for muscle spasms 90 tablet 1 12/24/2024 5 diltiaZEM CD (CARDIZEM CD) 360 mg 24 hr capsuleIndications :Paroxysmal atrial fibrillation (HCC),PVC's (premature ventricular contractions) Take 1 capsule (360 mg total) by mouth daily 30 capsule 10/23/[address] (CYMBALTA) 30 mg capsule Take 1 capsule (30 mg total) by mouth daily 02/29/2024 fluticasone propionate (FLONASE) 50 mcg/actuation nasal sprayIndications:d id not bring bottle 12/10/24 Administer 1 spray into each nostril daily as needed for rhinitis hydroCHLOROthiazid e (HYDRODIURIL) 25 mg tabletIndications: pt states is going to pharmacy today to start Take 1 tablet (25 mg total) by mouth daily 90 tablet 1 12/11/2024 hydrOXYzine (ATARAX) 50 mg tablet Take 1 tablet (50 mg total) by mouth daily 11/26/2023 isosorbide mononitrate ER (IMDUR) 60 mg 24 hr tabletIndications: duplicate med Take 1 tablet (60 mg total) by mouth daily 01/03/2024 ketoconazole (NIZORAL) 2 % cream Apply 1 Application topically 2 (two) times a day 11/04/2024 linaCLOtide (LINZESS) 145 mcg capsule Take 1 capsule (145 mcg total) by mouth daily 90 capsule 1 11/19/2024 losartan (COZAAR) 25 mg tablet Take 1 tablet (25 mg total) by mouth daily 11/07/2024 magnesium oxide (MAG-OX) 500 mg (301.6 mg elemental) tablet Take 1 tablet (500 mg total) by mouth daily 07/05/2023 metoprolol XL (TOPROL-XL) 50 mg extended release tabletIndications: Paroxysmal atrial fibrillation (HCC),PVC's (premature ventricular contractions) TAKE 1 TABLET(50 MG) BY MOUTH TWICE DAILY 60 tablet 01/09/2025 nitroglycerin (NITROSTAT) 0.[address] 1 tablet (0.4 mg total) under the tongue every 5 (five) minutes as needed for chest pain polyethylene glycol (MIRALAX) 17 gram/dose bulk powder Take 17 g by mouth nightly potassium chloride ER 10 mEq CR tabletIndications: pt states only takes with food otherwise can't not take Take 2 tablet/capsule (20 mEq total) by mouth daily with breakfast 180 tablet 1 12/11/2024 senna-docusate (PERICOLACE) 8.6-50 mg Take 1 tablet by mouth daily 30 tablet 12/24/2024 traMADoL (ULTRAM) 50 mg tablet Take 1 tablet (50 mg total) by mouth every 8 (eight) hours as needed for pain 60 tablet 01/14/2025 documented as of this encounter Discharge Disposition Disposition Code Departure Means Destination Discharge to home or self care documented in this encounter Plan of Treatment Upcoming Encounters Date Type Department Care Team (Latest Contact Info) Description 03/04/2025 7:30 AM CDT Hospital Encounter [facility] [address] [place] [address] Estuardo Aquino MD [address] [facility] [address] [place] [address] NSVT (nonsustained ventricular tachycardia) (HCC); PVC (premature ventricular contraction) 03/04/2025 7:30 AM CDT - 03/04/2025 3:50 PM CDT Surgery [facility] [address] [place] [address] Estuardo Aquino MD [address] [facility] [address] [place] [address] ABLATION VENTRICULAR TACHYCARDIA (VT) INCLUDES 3D MAPPING (WHEN USED) [address] Pending Results Name Type Priority Associated Diagnoses Date /Time PSG-Sleep Provider Use Only Sleep Center Routine Obstructive sleep apnea syndrome 02/13/2025 7:58 AM CDT Scheduled Orders Name Type Priority Associated Diagnoses Orde r Schedule PSG-Sleep Provider Use Only Sleep Center Routine Obstructive sleep apnea syndrome Once for 1 Occurrences starting 02/12/2025 until 02/12/2025 documented as of this encounter Goals Goal Patient Goal Type Associated Problems Recent Progress Patient-Stated? Author CECILIO General Goal - Patient is knowledgeable about condition when worsening and how to respond ACO Care Management On track(2024 2:55 PM CDT) Grey Gomez, LEBRON Note: Problem: Knowledge deficit related to signs [...] PM CDT) Grey Gomez, RN Note: Problem: Medication non-adherence Interventions: - Address any barriers to taking medications as ordered. Coordinate with appropriate personnel (SW, physician, pharmacist, etc.) to help increase compliance with medication regimen. - Review with patient/caregiver the medication schedule in detail. - Review when to call their physician for potential medication complications and ensure they verbalize understanding of instructions. Autogenerated Goal Care Plan Autogenerated Problem Diana Khan documented as of this encounter Visit Diagnoses Diagnosis NSVT (nonsustained ventricular tachycardia) (HCC) PVC (premature ventricular contraction) Other premature beats Obstructive sleep apnea syndrome NSVT (nonsustained ventricular tachycardia) (HCC) PVC (premature ventricular contraction) Other premature beats documented in this encounter Additional Health Concerns Active Problems Noted Date Diagnosed Date Autogenerated Problem 11/28/2024 documented as of this encounter Care Teams Musical Therapist Relationship Specialty Start Date End Date Butch De Souza Jr., MD [facility] [address] PCP - General Internal Medicine 06/17/21 Yessica Worthy MD [address] [facility] [address] [place] [address] Referring Physician Rheumatology 06/17/21 [place] [address] [place] [address] Consulting Physician Gastroenterology 06/17/21 [place] [address] [facility] [address] [place] [address] Consulting Physician Cardiovascular Disease 07/09/24 Grey Hand RN [address] [place] [address] [address] [place] [address] Bench Hand Machine 08/12/24 [place] [address] [address] [place] [address] Consulting Physician Pulmonary Disease 12/10/24 documented as of this encounter
--- OUTSIDE RECORDS SUMMARY | 2025-02-14 13:34 | XMS_ITS | Clinical Summary ---
Author Organization [facility] [employer] Address [address] [facility] [place] [address] Care Team Providers Care Electric Motor Controls Assembler Name Role Phone Ajay Childs MD Unavailable [phone] Nolvia Olivares MD, Butch Sanches Primary Care Provider Source Comments [facility],non-owned Affiliates and Associated Physician Practices is amultiple site organization consisting of ambulatory clinics and hospital sitesin [place], [place], [place] and [place]. This disclosure is being madepursuant to the Care Everywhere program and may not contain all information available regarding this patient. Last updated 18.[facility] [employer] Allergies Active Allergy Reactions Criticality Noted Date Comments Aripiprazole GRINDING AND POLISHING LABORER Dysfunction 10/17/2017 Zolpidem Other Low 07/10/2014 Delirium Sleep walking Sumatriptan Cardiac Injury,Other High 07/10/2014 Heart problems Heart racing Methotrexate Other Low 07/10/2014 Liver enzymes elevated Hydroxychloroquine Sulfate Eye Discomfort 10/17 Blurry vision, damaged eye sight Medications * Be aware that medications may not be up to date on this document. Alwaysverify current medications with the patient. isosorbide mononitrate CR 24hr (IMDUR) 30 MG tablet Take 2 (two) tablets by mouth once daily Active atorvastatin (LIPITOR) 40 MG tablet Take 1 (one) tablet by mouth at bedtime Active fenofibrate (LOFIBRA) 160 MG tablet Take 1 (one) tablet by mouth once daily Take with largest meal of the day. Active nitroGLYCERIN (NITROSTAT) 0.4 MG tablet Dissolve 1 (one) tablet under the tongue every 5 minutes as needed Active Bacillus Coagulans-Inuli n (ALIGN PREBIOTIC-PROBI OTIC PO) Active ranolazine ER 12hr (Ranexa) 1000 MG tablet Take 1 (one) tablet by mouth every 12 hours Active spironolactone (Aldactone) 12.5 MG TABSIndications :Edema Take 2 (two) Half Tablet by mouth once daily 1/2 tab every morning Reasons: Edema Active nebivolol (Bystolic) 5 MG tablet Take 1 (one) tablet by mouth at bedtime Active hydroCHLOROthia zide (Hydrodiuril) 25 MG tablet Take 1 (one) tablet by mouth once daily Active losartan (Cozaar) 50 MG tablet Take 1 (one) tablet by mouth at bedtime Active ALBUTEROL IN Inhale 1-2 puffs by mouth every 6 hours as needed (shortness of breath) Active ubrogepant (Ubrelvy) 50 MG tablet Take 1 (one) tablet by mouth daily as needed - may repeat one time for Migraine Maximum daily dose: 200mg/24 hours Active omeprazole (PriLOSEC) 20 MG capsule Take 1 (one) capsule by mouth once daily for 42 days 42 capsule 3 Active mirtazapine (Remeron) 15 MG tablet Take 1 (one) tablet by mouth at bedtime 3 Active Nurtec 75 MG tablet Take 75 mg by mouth once daily 3 Active docusate sodium (Dulcolax Stool Softener) 100 MG capsuleIndicati ons:Constipatio n Take 1 capsule by mouth once daily Reasons: Constipation Active acetaminophen (Tylenol) 500 MG tabletIndicatio ns:Pain Take 2 (two) tablets by mouth 3 times daily Maximum allowable Acetaminophen amount = 4 Grams (4000 mg) / 24 hours. 3 Active apixaban (Eliquis) 2.5 MG tabletIndicatio ns:afib Take 1 (one) tablet by mouth 2 times daily for 21 days Then resume 5mg twice daily 42 tablet 3 Active hydrOXYzine pamoate (Vistaril) 50 MG capsule TAKE 1 CAPSULE BY MOUTH EVERY 6 HOURS NEEDED 40 capsule 4 Active oxyCODONE, immediate release, (Roxicodone) 5 MG tabletIndicatio ns:Acute Pain Take 1 (one) tablet to 2 (two) tablets by mouth every 6 hours as needed for Pain Reasons: Acute Pain 30 tablet 3 Active Active Problems Problem Noted Date Diagnosed Date Status post left knee replacement 06/23/2023 Primary osteoarthritis of one knee, left 023 Status post right knee replacement on 03/13/23 Primary osteoarthritis of right knee 03/13/2023 Encounter for loop recorder check 07/09/2019 Overview (07/09/2019): ANDREA [id number] Implanted 07/08/2019 Dr Muñiz PAF (paroxysmal atrial fibrillation) 04/11/2019 Dyslipidemia 04/11/2019 LJ on CPAP 04/11/2019 Herniated nucleus pulposus, L3-4 right 9 Mixed hyperlipidemia 12/26/2017 Overview (04/11/2019): Last Assessment & Plan: Continue Atorvastatin. Diet Modifications. Last Assessment & Plan: Very low fat diet Exercise Check fasting lipids Continue current agents Hypertension 12/04/2017 Overview (04/11/2019): Last Assessment & Plan: Continue to monitor blood pressure Continue Amlodipine and Sotalol. Immunizations Immunization Administration Dates Next Due TDAP (7yrs+) 02/23/2015 Social History Tobacco Use Types Packs/Day Years Used Date Smoking Tobacco: Never Smokeless Tobacco: Never Tobacco Cessation:Counseling Given: Not Answered Alcohol Use Standard Drinks/Week Comments No 0 (1 standard drink = 0.6 oz pur e alcohol) OASIS D0700: Social Isolation Answer Da te Recorded Frequency of experiencing loneliness or isolatio n Never 06/21/2023 OASIS A1250: Transportation Answer Date Recorded Lack of Transportation (Medical) No 06/21/2023 Lack of Transportation (Non-Medical) No 06/21/2023 Patient Unable or Declines to Respond No 06/21/2023 OASIS B1300: Health Literacy Answer Geraldo e Recorded Frequency of needing help to read materials from doctor or pharmacy Never 06/21/2023 AUDIT-C Answer Date Recorded Q1: How often do you have a drink containing alcohol? Never 06/04/2023 Q2: How many drinks containi ng alcohol do you have on a typical day when you are drinking? Patient does not drink 3 Q3: How often do you have si x or more drinks on one occasion? Never 06/04/2023 Overall Financial Resource Strain (CARDIA) Answe r Date Recorded How hard is it for you to pa y for the very basics like food, housing, medical care, and heating? Not hard at all 06/02/2023 [facility] - Occupational Stress Questionnaire Answer Date Recorded Do you feel stress - tense, restless, nervous, or anxious, or unable to sleep at night because your mind is troubled all the time - these days? Not at all 06/02/2023 Hunger Vital Sign Answer Date Recorded Within the past 12 months, y ou worried that your food would run out before you got the money to buy more. Never true 06/02/20 23 Within the past 12 months, t he food you bought just didn't last and you didn't have money to get more. Never true 06/02/2023 PRAPARE - Transportation Answer Date Re corded In the past 12 months, has l ack of transportation kept you from medical appointments or from getting medications? No 07/2022 In the past 12 months, has l ack of transportation kept you from meetings, work, or from getting things needed for daily living? No 06/02/2023 Housing Stability Vital Sign Answer Geraldo e Recorded In the last 12 months, was t here a time when you were not able to pay the mortgage or rent on time? No 06/02/2023 In the last 12 months, how many places have you lived? 1 06/02/2023 In the last 12 months, was t here a time when you did not have a steady place to sleep or slept in a chcf (including now)? No 06/02/2023 Sex and Gender Information Value Date Recorded Sex Assigned at Not on file Legal Sex Male 6:06 AM FRAME POLISHER Gender Identity Not on file Sexual Orientation Not on file Last Filed Vital Signs Vital Sign Reading Time Taken Comments Blood Pressure 128/74 06/21/2023 5:27 PM FRAME POLISHER Pulse 74 06/21/2023 5:27 PM FRAME POLISHER Temperature 36.4 C (97.5 F) 06/21/2023 5:27 PM FRAME POLISHER Respiratory Rate 17 06/21/2023 5:27 PM FRAME POLISHER Oxygen Saturation 98% 06/21/2023 5:27 PM FRAME POLISHER Inhaled Oxygen Concentration - - Weight 141.3 kg (311 lb 9.6 oz) 06/02/2023 7:21 AM FRAME POLISHER Height 190.5 cm (6' 3) 06/02/2023 7:21 AM FRAME POLISHER Body Mass Index 38.95 06/02/2023 7:21 AM FRAME POLISHER Plan of Treatment Health Maintenance Due Date Last Done Comments COLOGUARD (AGES 45-75) - COLON CA SCREENING 1958 COLON MONITORING 1958 COLONOSCOPY - COLON CA SCREENING 1958 CT COLONOGRAPHY - COLON CA SCREENING 1960 Colorectal Cancer Screening 1958 FIT - COLON CA SCREENING 1958 FLEX SIG - COLON CA SCREENING 1958 PNEUMOCOCCAL VACCINE 50+ (1 of 1 - PCV) 2008 ZOSTER VACCINE (1 of 2) 2008 COVID-19 VACCINE (1 - 2023- season) 2024 DEPRESSION SCREENING 07/03/2024 MEDICARE AWV CALENDAR YEAR 2024 DTAP/TDAP/TD VACCINES (2 - Td or Tdap) 02/23/2025 02/23/2015 INFLUENZA VACCINE (#1) 2025 0, 04/11/2019, 04/30/2018, Additional history exists SCREENING FOR DIABETES 07/18/2026 4, 07/18/2023, 07/18/2023, Additional history exists Respiratory Syncytial Virus (RSV) Vaccine Pt: or over 60 yrs (1 - 1-dose 75+ series) 2033 HEPATITIS C SCREENING Completed 05/22/2020 HEPATITIS B VACCINE Aged Out No longe r eligible based on patient's age to complete this topic HIB VACCINE Aged Out No longer eligi ble based on patient's age to complete this topic HPV VACCINE Aged Out No longer eligi ble based on patient's age to complete this topic MENINGOCOCCAL (Group B) VACCINE SHARED DECISION-MAKING Aged Out No longer eligible based on patient's age to complete this topic MENINGOCOCCAL GROUPS A/C/Y/W VACCINE Aged Out No longer eligible based on patient's age to complete this topic Medical Devices Implanted Type Area Senior Manager Asset Protection Device Identifier Shelf Expiration Date Model / Serial / Lot Graft Tissue Drgn + Bvn Clgn Mtrx 2x2in Implanted:Qty: 1 on 09/13/2018 by Jackson Norwood MD at [facility] [employer] 07/02/2021 [id number] / / [id number] Cmpnt Fem Kn Rt Cr Cmnt Prm Vngrd Intlk Implanted:Qty: 1 on 03/13/2023 by Miko Pérez MD at [facility] Right: Knee [employer] 12/13/2032 [id number] / / [id number] Cmnt Bone Plc R 40gm Grn Implanted:Qty: 1 on 03/13/2023 by Miko Pérez MD at [facility] Right: Knee [employer] 07/02/2025 [id number] / / [id number] Cmnt Bone Plc R 40gm Grn Implanted:Qty: 1 on 03/13/2023 by Miko Pérez MD at [facility] Right: Knee [employer] 07/02/2025 [id number] / / [id number] Tray Tib 83mm As Mx Kn Intlk Cocr 1 Pc Implanted:Qty: 1 on 03/13/2023 by Miko Pérez MD at [facility] Right: Knee [employer] 02/08/2032 [id number] / / [id number] Cmpnt Ptlr Std 37mm 3 Pg Kn Ser A Implanted:Qty: 1 on 03/13/2023 by Miko Pérez MD at [facility] Right: Knee [employer] 03/21/2027 [id number] / / [id number] Pancho [employer]ng [id number] Vivacit-E Kn Ant Stab Implanted:Qty: 1 on 03/13/2023 by Miko Pérez MD at [facility] Right: Knee [employer] 05/17/2027 [id number] BILL ONLY / / [id number] Tray Tib 83mm As Mx Kn Intlk Cocr 1 Pc Implanted:Qty: 1 on 06/02/2023 by Miko Pérez MD at [facility] Left: Knee [employer] 11/08/2032 [id number] / / [id number] Cmpnt Fem Kn Lt Cr Cmnt Prm Vngrd Intlk Implanted:Qty: 1 on 06/02/2023 by Miko Pérez MD at [facility] Left: Knee [employer] 04/08/2033 [id number] / / [id number] Cmpnt Ptlr Std 34mm 3 Pg Kn Ser A Implanted:Qty: 1 on 06/02/2023 by Miko Pérez MD at [facility] Left: Knee [employer] 06/29/2027 [id number] / / [id number] [employer] 93prx23sy Vngrd Arcm Kn Ant Stab Implanted:Qty: 1 on 06/02/2023 by Miko Pérez MD at [facility] Left: Knee [employer] 11/19/2024 [id number] BILL ONLY / / [id number] Cmnt Bone Plc R 40gm Grn Implanted:Qty: 1 on 06/02/2023 by Miko Pérez MD at [facility] Left: Knee [employer] 08/30/2025 [id number] / / [id number] Cmnt Bone Plc R 40gm Grn Implanted:Qty: 1 on 06/02/2023 by Miko Pérez MD at [facility] Left: Knee [employer] 10/30/2025 [id number] / / [id number] Procedures Procedure Name Priority Date/Time Associated Diagnosis Comments BASIC METABOLIC PANEL (CALCIUM TOTAL) STAT 06/02/2023 7:31 AM FRAME POLISHER Preop examination from Last 3 Months or Most Recently Relevant to Health Maintenance Results * (ABNORMAL) BASIC METABOLIC PANEL (CALCIUM TOTAL) (06/02/2023 7:31 AM FRAME POLISHER) [facility] Glucose 86 70 - 105 mg/dL 06/02/2023 7:57 AM FRAME POLISHER [facility] Sodium 139 136 - 145 mmol/L 06/02/2023 7:[address] [facility] Potassium 3.2(L) 3.5 - 5.1 mmol/L 06/02/2023 7:[address] [facility] Chloride 110(H) 98 - 107 mmol/L 06/02/2023 7:[address] [facility] CO2 20(L) 22 - 29 mmol/L 06/02/2023 7:[address] [facility] Calcium 8.6 8.4 - 10.4 mg/dL 06/02/2023 7:[address] [facility] Anion Gap 9 6 - 16 mmol/L 06/02/2023 7:[address] [facility] BUN 18 7 - 26 mg/dL 06/02/2023 7:[address] [facility] Creatinine 0.93 0.72 - 1.25 mg/dL 06/02/2023 7:[address] [facility] eGFR by CKD-EPI >90 >=90 mL/min/1.7 3 m2 06/02/2023 7:[address] [facility] Blood BLOOD SPECIMEN / Unknown Venipuncture / Unknown 06/02/2023 7:31 AM FRAME POLISHER 06/02/2023 7:42 AM [facility] Jeanie Valdovinos DO LAB - CHEMISTRY ORDERABLES Jyothi durant Result [facility] [address] [place] [address] from Last 3 Months or Most Recently Relevant to Health Maintenance [facility] [id number] [id number] MEDICARE ANTHEM Advance Directives * Full Code (Latest Code Status on File) Date Activated Date Inactivated Comments 06/02/2023 1:02 PM 06/04/2023 3:22 PM * Full Code Date Activated Date Inactivated Comments 03/15/2023 9:51 PM 06/02/2023 6:08 AM To update th e patient's code status, place a code status order. Do not modify or discontinue any currently active code status orders. * Full Code Date Activated Date Inactivated Comments 03/13/2023 3:53 PM 03/14/2023 4:35 PM * Full Code Date Activated Date Inactivated Comments 09/13/2018 11:27 PM 09/17/2018 3:33 PM * Full Code Date Activated Date Inactivated Comments 09/13/2018 11:27 PM 09/13/2018 11:27 PM Care Teams Electric Motor Controls Assembler Relationship Specialty Start Date End Date Butch De Souza Jr., MD [address] [place] [address] PCP - General Internal Medicine 02/21/23 Ajay Childs MD [address] [place] [address] Cardiovascular Disease 04/19/19
--- OUTSIDE RECORDS SUMMARY | 2025-02-14 13:34 | XMS_ITS | Clinical Summary ---
Author Organization [facility] Address [address] [place] [address] Phone Care Team Providers Care Brick Tender Name Role Phone Montana Gayle DO Primary Care Provider [phone] Allergies Active Allergy Reactions Criticality Noted Date Comments Aripiprazole Unknown 09/18/2018 Hydroxychloroquine Unknown 09/18/2018 Methotrexate Unknown 09/18/2018 Sumatriptan Other (see Comments) 09/18/2018 Zolpidem Unknown 09/18/2018 Medications Vitamin B-2 (RIBOFLAVIN) 100 MG Tablet Take 100 mg by mouth 2 times daily. Active topiramate (TOPAMAX) 25 MG Tablet Take 25 mg by mouth 2 times daily. Active tamsulosin (FLOMAX) 0.4 MG Capsule Take 0.4 mg by mouth daily. Active amLODIPine (NORVASC) 10 MG Tablet Take 10 mg by mouth daily. TAKE 1 TAB BY MOUTH 2 TIMES EVERY DAY Active Cholecalciferol (VITAMIN D3) 2000 units Tablet Take 2,000 Units by mouth daily. Active sotalol (BETAPACE) 80 MG Tablet Take 80 mg by mouth daily. TAKE ONE HALF TAB BY MOUTH AT BEDTIME Active venlafaxine (EFFEXOR-XR) 150 MG CAPSULE SR 24 HR Take 150 mg by mouth daily. TAKE 2 CAPS BY NOUTH EVERY DAY Active verapamil CR (VERELAN) 120 MG CAPSULE SR 24 HR Take 120 mg by mouth daily. Active atorvastatin (LIPITOR) 40 MG Tablet Take 40 mg by mouth daily. Active Melatonin 10 MG Capsule Take 10 mg by mouth daily. Active Sennosides (SENNA) 8.6 MG Capsule Take 8.6 mg by mouth daily. Active docusate sodium (COLACE) 100 MG Capsule Take 100 mg by mouth once. Active Ascorbic Acid (VITAMIN C) 500 MG Chewable Tablet Take 500 mg by mouth daily. Active raNITIdine (ZANTAC) 150 MG Tablet Take 150 mg by mouth 2 times daily. Active topiramate (TOPAMAX) 100 MG Tablet Take 100 mg by mouth daily. Active potassium chloride (KLOR-CON) 20 MEQ Pack Take 20 mEq by mouth daily. Active QUEtiapine Fumarate 300 MG Tablet Take 300 mg by mouth 2 times daily. Active isosorbide mononitrate (IMDUR) 30 MG TABLET SR 24 HR Take 30 mg by mouth daily. Active cyclobenzaprine (FLEXERIL) 10 MG Tablet Take 10 mg by mouth 3 times daily as needed for Muscle spasms. Active HYDROcodone-sunny taminophen (NORCO) 5-325 MG Tablet Take 2 Tabs by mouth every 6 hours as needed for Moderate or more severe pain. Active APAP-CODEINE & DIET MANAGE ID PO Take 300 mg by mouth 3 times daily as needed for Other (PAIN). Active leflunomide (ARAVA) 20 MG Tablet Take 20 mg by mouth daily. Active prazosin (MINIPRESS) 2 MG Capsule Take 2 mg by mouth nightly. Active magnesium oxide (MAG-OX) 400 MG Tablet Take 400 mg by mouth 2 times daily. Active fenofibrate 160 MG Tablet Take 160 mg by mouth daily. Active enoxaparin (LOVENOX) 150 mg/mL Solution 150 mg by Subcutaneous route daily. Active Social History Tobacco Use Types Packs/Day Years Used Date Smoking Tobacco: Never Assessed Sex and Gender Information Value Date Recorded Sex Assigned at Not on file Legal Sex Male 10:52 AM CDT Gender Identity Not on file Sexual Orientation Not on file Last Filed Vital Signs Vital Sign Reading Time Taken Comments Blood Pressure 138/90 10/25/2018 3:24 PM CDT Pulse 79 10/25/2018 3:24 PM CDT Temperature 36.8 C (98.2 F) 10/25/2018 3:24 PM CDT Respiratory Rate 18 10/25/2018 3:24 PM CDT Oxygen Saturation 98% 10/25/2018 3:24 PM CDT Inhaled Oxygen Concentration - - Weight 142.9 kg (315 lb) 10/18/2018 10:41 AM CDT Height 191.8 cm (6' 3.5) 09/18/2018 12:43 PM CD T Body Mass Index 38.85 09/18/2018 12:43 PM CDT Plan of Treatment Not on file Insurance MEDICARE [facility] Care Teams Brick Tender Relationship Specialty Start Date End Date Montana Gayle DO [address] [place] [address] PCP - General Internal Medicine 09/17/18
--- OUTSIDE RECORDS SUMMARY | 2025-02-14 13:34 | XMS_ITS | Encounter Summary ---
Author Organization [facility] Address [address] [place] [address] Phone Care Team Providers Care Geodetic Computator Name Role Phone Swathi Golden RN Unavailable Unavailab Heydi Razo MD Primary Care Provider Heydi Hood MD Primary Care Provider Nolvia Olivares MD, Butch Cross Primary Care Provide r Sheri Mac MD Unavailable Yessica Worthy MD Unavailable Tonny Yoon MD Unavailable Cortney García RN Unavailable Ajay Downs MD Unavailable [phone] Grey Hand RN Unavailable [phone] Kodi Griggs MD Unavailable [phone] Encounter Details Date Type Department Care Team (Late st Contact Info) Description 02/20/2019 Orders Only [facility] Scanning, Provider Social History Tobacco Use Types Packs/Day Years Used Date Smoking Tobacco: Never Smokeless Tobacco: Never Alcohol Use Standard Drinks/Week Comments No 0 (1 standard drink = 0.6 oz pur e alcohol) PHQ-2 Answer Date Recorded PHQ-2 Score 0 02/20/2019 Sex and Gender Information Value Date Recorded Sex Assigned at Not on file Legal Sex Male 11:58 PM COMPUTER SCIENCE INSTRUCTOR Gender Identity Not on file Sexual Orientation Not on file documented as of this encounter Plan of Treatment Upcoming Encounters Date Type Department Care Team (Latest Contact Info) Description 03/04/2025 7:30 AM CDT Hospital Encounter [facility] Electrophysiology Lab [address] [place] [address] Estuardo Aquino MD [address] [facility] [address] [place] [address] NSVT (nonsustained ventricular tachycardia) (HCC); PVC (premature ventricular contraction) 03/04/2025 7:30 AM CDT - 03/04/2025 3:50 PM CDT Surgery [facility] Electrophysiology Lab [address] [place] [address] Estuardo Aquino MD [address] [place] [address] ABLATION VENTRICULAR TACHYCARDIA (VT) INCLUDES 3D MAPPING (WHEN USED) [address] documented as of this encounter Procedures Procedure Name Priority Date/Time Associated Diagnosis Comments SCAN - LABS 02/20/2019 documented in this encounter Results * SCAN - LABS (02/20/2019) us Provider Scanning Final Result documented in this encounter Visit Diagnoses Not on filedocumented in this encounter Additional Health Concerns Infection Onset Date Last Indicated Resolved Time COVID: Suspected 06/14/2021 06/14/2021 06/14/2021 7:24 PM COMPUTER SCIENCE INSTRUCTOR COVID: Suspected 01/16/2022 01/16/2022 01/16/2022 7:20 PM CDT COVID: Suspected 08/22/2022 08/22/2022 08/22/2022 9:42 AM COMPUTER SCIENCE INSTRUCTOR COVID: Suspected 08/04/2024 08/04/2024 08/04/2024 3:41 PM COMPUTER SCIENCE INSTRUCTOR COVID: Suspected 08/05/2024 08/05/2024 08/05/2024 1:23 PM COMPUTER SCIENCE INSTRUCTOR Rhino/Enterovirus 11/08/2024 11/08/2024 11/15/2024 3:05 AM CDT documented as of this encounter Care Teams Geodetic Computator Relationship Specialty Start Date End Date Heydi Hood MD [address] [facility] [address] [address] PCP - General Family Medicine 03/03/21 06/13/21 Heydi Hood MD [address] [facility] [address] [address] PCP - General 06/14/21 06/16/21 Butch De Souza Jr., MD [address] [place] [address] [id number] PCP - General Internal Medicine 06/17/21 Swathi Golden RN Registered Nurse 04/15/19 01/18/23 Sheri Mac MD [address] [place] [address] [id number] Endocrinology 06/17/21 12/09/24 Yessica Worthy MD [address] [place] [address] Referring Physician Rheumatology 06/17/21 [place] [address] [place] [address] Consulting Physician Gastroenterology 06/17/21 Cortney García, LEBRON [address] [place] [address] [address] [place] [address] Radar Systems Engineer 11/09/23 05/30/24 [place] [address] [facility] [address] [place] [address] Consulting Physician Cardiovascular Disease 07/09/24 Grey Hand RN [address] [place] [address] [address] [place] [address] Radar Systems Engineer 08/12/24 [place] [address] [address] [facility] [place] [address] [place] [address] Consulting Physician Pulmonary Disease 12/10/24 documented as of this encounter
--- OUTSIDE RECORDS SUMMARY | 2025-02-14 13:34 | XMS_ITS | Encounter Summary ---
Author Organization [facility] Address [address] [place] [address] Care Team Providers Care Industrial Design Engineer Name Role Phone Nolvia Olivares MD, Butch Sanches Primary Care Provider Reason for Visit * Reason Onset Date Comments Chest pain, passed out 07/12/2022 Spoke W/ Tammie at Dr. Downs's office Encounter Details Date Type Department Care Team (Late st Contact Info) Description 07/12/2022 Telephone [facility] Admitting [address] [place] [address] [place] [address] [address] Chest pain, passed out (Spoke W/ Tammie at Dr. Downs's office) Social History Tobacco Use Types Packs/Day Years Used Date Smoking Tobacco: Never Smokeless Tobacco: Never Alcohol Use Standard Drinks/Week Comments Not Currently 0 (1 standard drink = 0.6 oz pur e alcohol) Sex and Gender Information Value Date Recorded Sex Assigned at Not on file Legal Sex Male 3:45 PM CDT Gender Identity Not on file Sexual Orientation Not on file COVID-19 Exposure Response Date Recorded In the last 10 days, have yo u been in contact with someone who was confirmed or suspected to have Coronavirus/COVID-19? No / Unsure 07/11/2022 5:52 PM FULL TIME BABYSITTER documented as of this encounter Plan of Treatment Not on file documented as of this encounter Visit Diagnoses Not on filedocumented in this encounter Care Teams Industrial Design Engineer Relationship Specialty Start Date End Date Butch De Souza Jr., MD [address] [place] [phone] PCP - General Internal Medicine 05/10/22 documented as of this encounter
[2025-02-14 13:42] VITALS: BP 190/120; PULSE 74; RESP 16; TEMP 36.5; O2SAT 99
[2025-02-14 14:09] VITALS: BP 168/106; PULSE 65; RESP 18
--- NOTE | 2025-02-14 14:12 | ECG_ITS ---
Test Date: 2025-02-14 14:44:45 Measurements Intervals [place] Rate: 64 P: 75 IN: 177 QRS: 3 QRSD: 96 T: 57 QT: 480 QTc: 495 Interpretive Statements SINUS RHYTHM INCOMPLETE RIGHT BUNDLE BRANCH BLOCK BASELINE ARTIFACT- I, II, III, AVR, AVL, AVF, V1-V6 BORDERLINE ECG No previous ECG available for comparison Electronically Signed On 02-14-2025 14:47:11 CDT by Chano Villagomez D.O.
--- OUTSIDE RECORDS SUMMARY | 2025-02-14 14:38 | XMS_ITS | Encounter Summary ---
Author Organization [facility] Address [facility] [address] Phone Care Team Providers Care Financial Aid Administrator Name Role Phone Unavailable Primary Care Provider Unavailabl e Reason for Visit * Reason Comments Med Refill Encounter Details Date Type Department Care Team (Late st Contact Info) Description 03/01/2024 Refill [employer] [facility], [address] [address] Jez Haines DO [address] [address] Social History Tobacco Use Types [...]
--- OUTSIDE RECORDS SUMMARY | 2025-02-14 14:38 | XMS_ITS | Encounter Summary ---
Author Organization [facility] Address [address] [place] [address] Care Team Providers Care Forge Operator Name Role Phone Swathi Golden RN Unavailable Unavailab Heydi Razo MD Primary Care Provider Heydi Hood MD Primary Care Provider Nolvia Olivares MD, Butch Cross Primary Care Provide r Sheri Mac MD Unavailable Yessica Worthy MD Unavailable Tonny Yoon MD Unavailable Cortney García RN Unavailable [phone] Ajay Downs MD Unavailable Grey Hand RN Unavailable [phone] Kodi Griggs MD Unavailable Encounter Details Date Type Department Care Team (Late st Contact Info) Description 11/06/2017 Orders Only [facility] Information Management [address] [place] [id number] Scanning, Provider Social History Tobacco Use Types Packs/Day Years Used Date Smoking Tobacco: Never Smokeless Tobacco: Never Alcohol Use Standard Drinks/Week Comments No 0 (1 standard drink = 0.6 oz pur e alcohol) Sex and Gender Information Value Date Recorded Sex Assigned at Not on file Legal Sex Male 11:58 PM INDUSTRIAL MAINTENANCE REPAIRER Gender Identity Not on file Sexual Orientation Not on file documented as of this encounter Plan of Treatment Upcoming Encounters Date Type Department Care Team (Latest Contact Info) Description 03/04/2025 7:30 AM CDT Hospital Encounter [facility] Electrophysiology Lab [address] [place] [address] Estuardo Aquino MD [address] [place] [address] NSVT (nonsustained ventricular tachycardia) (HCC); PVC (premature ventricular contraction) 03/04/2025 7:30 AM CDT - 03/04/2025 3:50 PM CDT Surgery [facility] Electrophysiology Lab [address] [place] [address] Estuardo Aquino MD [address] [place] [address] ABLATION VENTRICULAR TACHYCARDIA (VT) INCLUDES 3D MAPPING (WHEN USED) [id number] documented as of this encounter Procedures Procedure [...] COVID: Suspected 06/14/2021 06/14/2021 06/14/2021 7:24 PM INDUSTRIAL MAINTENANCE REPAIRER COVID: Suspected 01/16/2022 01/16/2022 01/16/2022 7:20 PM CDT COVID: Suspected 08/22/2022 08/22/2022 08/22/2022 9:42 AM INDUSTRIAL MAINTENANCE REPAIRER COVID: Suspected 08/04/2024 08/04/2024 08/04/2024 3:41 PM INDUSTRIAL MAINTENANCE REPAIRER COVID: Suspected 08/05/2024 08/05/2024 08/05/2024 1:23 PM INDUSTRIAL MAINTENANCE REPAIRER Rhino/Enterovirus 11/08/2024 11/08/2024 11/15/2024 3:05 AM CDT documented as of this encounter Care Teams Forge Operator Relationship Specialty Start Date End Date Heydi Hood MD [address] [facility] [address] [address] PCP - General Family Medicine 03/03/21 06/13/21 Heydi Hood MD [address] [facility] [address] [address] PCP - General 06/14/21 06/16/21 Butch De Souza Jr., MD [address] [place] [address] PCP - General Internal Medicine 06/17/21 Swathi Golden RN Registered Nurse 04/15/19 01/18/23 Sheri Mac MD [address] [place] [address] [phone] Endocrinology 06/17/21 12/09/24 Yessica Worthy MD [address] [facility] [address] [place] [address] Referring Physician Rheumatology 06/17/21 [place] [address] [place] [address] Consulting Physician Gastroenterology 06/17/21 Cortney García, LEBRON [address] [place] [address] [address] [place] [address] Baller Tender 11/09/23 05/30/24 [place] [address] [facility] [address] [place] [address] Consulting Physician Cardiovascular Disease 07/09/24 Grey Hand RN [address] [place] [address] [address] [place] [address] Baller Tender 08/12/24 [place] [address] [address] [facility] [address] [place] [address] Consulting Physician Pulmonary Disease 12/10/24 documented as of this encounter
--- OUTSIDE RECORDS SUMMARY | 2025-02-14 14:38 | XMS_ITS | Clinical Summary ---
Author Organization [facility] Address [facility] [place] [address] Care Team Providers Care Analytical Sciences Director Name Role Phone Nolvia Olivares MD, Butch Sunday Primary Care Pro vider Allergies Active Allergy Reactions Criticality Noted Date Comments Aripiprazole Nausea and Vomiting,Nausea Only,Unknown Medium 06/04/2014 Other reaction(s): SURVEY CREW CHIEF Dysfunction Hydroxychloroquine Eyes Water & Itch,Other (see comment),Unknown Low 10/17/2017 Blurry vision, damaged eye sight Reaction: Other Reaction: damaged eye muscles, Other reaction(s): Eye Discomfort, Unknown Blurry vision, damaged eye sight Methotrexate Nausea Only,Unknown,Other (see comment) Medium 06/04/2014 Liver enzymes elevated Liver enzymes elevated Reaction: Raises liver enzymes high, Other reaction(s): Unknown Sumatriptan Unknown,Nausea Only,Other (see comment),Palpitations High 06/04/2014 Heart problems Heart racing Reaction: Other Reaction: Heart attack symptoms, , Reaction: Heart attack symptoms, Other reaction(s): Other (see Comments) Zolpidem Hallucinations,Other (see comment),Nausea and Vomiting,Unknown Medium 04/17/2014 Delirium Sleep walking Other reaction(s): Unknown Medications atorvastatin 40 MG tablet Take 40 mg by mouth daily. 1 Active topiramate 100 MG tablet Take 100 mg by mouth 2 (two) times daily. Active ELIQUIS 5 MG tablet Take 5 mg by mouth every 12 (twelve) hours. 1 Active amLODIPine 10 MG tablet Take 10 mg by mouth daily. 1 Active oxyCODONE-acetamin ophen 10-325 MG tablet Take 1 tablet by mouth every 12 (twelve) hours as needed. FOR PAIN 1 Active fenofibrate 160 MG tablet Take 160 mg by mouth daily. 0 Active venlafaxine XR 150 MG 24 hr capsule Take 300 mg by mouth daily. 1 Active QUEtiapine 300 MG tablet TAKE ONE AND ONE-HALF TABLETS BY MOUTH AT BEDTIME 1 Active TRINTELLIX 10 MG tablet Take 10 mg by mouth daily. 1 Active Ascorbic Acid (VITAMIN C) 500 MG Chew Tab Chew 500 mg by mouth daily. Active Diflorasone Diacetate 0.05 % Ointment 1 Active diclofenac sodium 1 % gel Apply topically 4 (four) times daily. Active hydrocortisone 2.5 % cream APPLY A THIN LAYER TWICE DAILY NEEDED UPTO 4 DAYS 1 Active ketoconazole 2 % cream 1 Active umeclidinium-vilan terol (ANORO ELLIPTA) 62.5-25 MCG/INH inhaler Inhale 1 puff into the lungs daily. 0 Active nitroglycerin 0.[address] 0.4 mg under the tongue every 5 (five) minutes as needed. Active clonazePAM 0.25 MG disintegrating tablet DISSOLVE ONE TABLET BY MOUTH TWICE DAILY 0 Active Cholecalciferol (VITAMIN D3) 25 MCG (1000 UT) Cap Take 2,000 Units by mouth daily. Active aspirin 81 MG chewable tablet TK 1 T PO QD AT 8AM 0 Active albuterol sulfate HFA 108 (90 Base) MCG/ACT inhaler Inhale 2 puffs into the lungs every 4 (four) hours as needed. 0 Active potassium chloride CR 20 MEQ tabletIndications: Hypokalemia Take 1 tablet (20 mEq total) by mouth daily. 60 tablet 1 Active spironolactone 25 MG tabletIndications: Hypokalemia Take 1 tablet (25 mg total) by mouth daily. 90 tablet 1 1 Active golimumab (SIMPONI ARIA) 50 MG/4ML injectionIndicatio ns:RA Inject 2 mg/kg into the vein once. Indications: RA Infusion Active Active Problems Problem Noted Date Diagnosed Date Depression with anxiety 10/27/2020 Anemia, unspecified 05/21/2020 Spondylosis of cervical joint without myelopathy 05/21/2020 Hyperglycemia 05/14/2020 Chronic pain syndrome 05/13/2019 Radiculopathy, lumbosacral region 05/06/2019 Paroxysmal atrial fibrillation ([facility]) 04/11/2019 Overview (10/27/2020): Last Assessment & Plan: Continue Sotalol and Warfarin. Monitor INR Vitamin B12 deficiency 08/07/2018 Anxiety 12/04/2017 Overview (10/27/2020): Last Assessment & Plan: Continue Effexor. At this time holding Lorazepam. Hypertension 12/04/2017 Overview (10/27/2020): Last Assessment & Plan: Continue to monitor blood pressure Continue Amlodipine and Sotalol. Last Assessment & Plan: Continue to monitor blood pressure Continue Amlodipine and Sotalol. Immunizations Immunization Administration Dates Next Due Influenza Adult (Generic) 05/15/2020,04/11/2019, 04/30/2018,04/21/2017 Tdap (Generic) 05/16/2020,02/23/2015 Family History * Patient is adopted Medical History Relation Comments Diabetes Maternal Uncle Heart Disease Maternal Uncle Breast Cancer Mother Seizures Sister Relation Status Comments Maternal Uncle Mother Sister Social History Tobacco Use Types Packs/Day Years Used Date Smoking Tobacco: Never Smokeless Tobacco: Never Tobacco Cessation:Counseling Given: Yes Alcohol Use Standard Drinks/Week Comments Not Currently 0 (1 standard drink = 0.6 oz pur e alcohol) PHQ-2 Answer Date Recorded PHQ-2 Score - If the patient scores above 3, please move on to questions 3-9 2 10/27/2020 Sex and Gender Information Value Date Recorded Sex Assigned at Not on file Legal Sex Male 7:17 PM CDT Gender Identity Not on file Sexual Orientation Not on file Last Filed Vital Signs Vital Sign Reading Time Taken Comments Blood Pressure 169/82 07/10/2023 7:30 AM SUPERVISOR DRAPERY HANGING Pulse 71 07/10/2023 7:30 AM SUPERVISOR DRAPERY HANGING Temperature 36.6 C (97.8 F) 07/10/2023 4:16 AM SUPERVISOR DRAPERY HANGING Respiratory Rate 22 07/10/2023 7:30 AM SUPERVISOR DRAPERY HANGING Oxygen Saturation 95% 07/10/2023 7:30 AM SUPERVISOR DRAPERY HANGING Inhaled Oxygen Concentration - - Weight 140.6 kg (310 lb) 07/02/2023 6:06 PM SUPERVISOR DRAPERY HANGING Height 191.8 cm (6' 3.5) 07/02/2023 6:06 PM SUPERVISOR DRAPERY HANGING Body Mass Index 38.24 07/02/2023 6:06 PM SUPERVISOR DRAPERY HANGING Plan of Treatment Health Maintenance Due Date Last Done Comments Colorectal Cancer Screening Colonoscopy (10 Years) 1958 Hepatitis C 1976 Pneumococcal Vaccine: 50+ Years (1 of 1 - PCV) 2008 Zoster Vaccines (1 of 2) 2008 RSV Immunization or 60+ Years (1 - Risk 60-74 years 1-dose series) 2018 Annual Medicare Wellness Visit 2023 COVID-19 Vaccine (1 - 2023-2 5 season) 2024 DTaP, Tdap and Td Vaccines ( 3 - Td or Tdap) 05/16/2030 05/16/2020, 02/23/2015 Meningococcal B Vaccine Aged Out No l onger eligible based on patient's age to complete this topic Meningococcal Vaccine Aged Out No efrain rajesh eligible based on patient's age to complete this topic RSV Immunizations Under 20 Months Aged Out No longer eligible b ased on patient's age to complete this topic Insurance MEDICARE [facility] Care Teams Analytical Sciences Director Relationship Specialty Start Date End Date Butch De Souza Jr., MD [address] [place] [id number] PCP - General HOSPITALIST 07/10/23
--- OUTSIDE RECORDS SUMMARY | 2025-02-14 14:38 | XMS_ITS | Clinical Summary ---
Author Organization [facility] [employer] Address [address] [place] [address] Care Team Providers Care Supercalender Operator Helper Name Role Phone Ajay Childs MD Unavailable [phone] Nolvia Olivares MD, Butch Sanches Primary Care Provider Source Comments [facility],non-owned Affiliates and Associated Physician Practices is amultiple site organization consisting of ambulatory clinics and hospital sitesin [place], [place], [place] and [place]. This disclosure is being madepursuant to the Care Everywhere program and may not contain all information available regarding this patient. Last updated 18.[facility] [employer] Allergies Active Allergy Reactions Criticality Noted Date Comments Aripiprazole LEG MAN Dysfunction 10/17/2017 Zolpidem Other Low 07/10/2014 Delirium [...] loop recorder check 07/09/2019 Overview (07/09/2019): ANDREA [id number] Implanted 07/08/2019 Dr Muñiz PAF (paroxysmal atrial [...] and heating? Not hard at all 06/02/2023 [facility] - Occupational [...] place to sleep or slept in a long-term (including now)? No 06/02/2023 Sex and Gender Information Value Date Recorded Sex Assigned at Not on file Legal Sex Male 6:06 AM DOUBLE ENDING MACHINE OPERATOR Gender Identity Not on file Sexual Orientation Not on file Last Filed Vital Signs Vital Sign Reading Time Taken Comments Blood Pressure 128/74 06/21/2023 5:27 PM DOUBLE ENDING MACHINE OPERATOR Pulse 74 06/21/2023 5:27 PM DOUBLE ENDING MACHINE OPERATOR Temperature 36.4 C (97.5 F) 06/21/2023 5:27 PM DOUBLE ENDING MACHINE OPERATOR Respiratory Rate 17 06/21/2023 5:27 PM DOUBLE ENDING MACHINE OPERATOR Oxygen Saturation 98% 06/21/2023 5:27 PM DOUBLE ENDING MACHINE OPERATOR Inhaled Oxygen Concentration - - Weight 141.3 kg (311 lb 9.6 oz) 06/02/2023 7:21 AM DOUBLE ENDING MACHINE OPERATOR Height 190.5 cm (6' 3) 06/02/2023 7:21 AM DOUBLE ENDING MACHINE OPERATOR Body Mass Index 38.95 06/02/2023 7:21 AM DOUBLE ENDING MACHINE OPERATOR Plan of Treatment Health Maintenance Due Date [...] this topic Medical Devices Implanted Type Area Residence Life Coordinator Device Identifier Shelf Expiration Date Model / Serial / Lot Graft Tissue Drgn + Bvn Clgn Mtrx 2x2in Implanted:Qty: 1 on 09/13/2018 by Jackson Norwood MD at [facility] [employer] 07/02/2021 [id number] / / [id number] Cmpnt Fem Kn Rt Cr Cmnt Prm Vngrd Intlk Implanted:Qty: 1 on 03/13/2023 by Miko Pérez MD at [facility] Right: Knee [employer] 12/13/2032 [id number] / / [id number] Cmnt Bone Plc R 40gm Grn Implanted:Qty: 1 on 03/13/2023 by Miko Pérez MD at [facility] Right: Knee [employer] 07/02/2025 [id number] / / [id number] Cmnt Bone Plc R 40gm Grn Implanted:Qty: 1 on 03/13/2023 by Miko Pérez MD at [facility] Right: Knee [employer] 07/02/2025 [id number] / / [id number] Tray Tib 83mm As Mx Kn Intlk Cocr 1 Pc Implanted:Qty: 1 on 03/13/2023 by Miko Pérez MD at [facility] Right: Knee [employer] 02/08/2032 [id number] / / [id number] Cmpnt Ptlr Std 37mm 3 Pg Kn Ser A Implanted:Qty: 1 on 03/13/2023 by Miko Pérez MD at [facility] Right: Knee [employer] 03/21/2027 [id number] / / [id number] [employer] 40t90dz Vivacit-E Kn Ant Stab Implanted:Qty: 1 on 03/13/2023 by Miko Pérez MD at [facility] Right: Knee [employer] 05/17/2027 [id number] BILL ONLY / / [id number] Tray Tib 83mm As Mx Kn Intlk Cocr 1 Pc Implanted:Qty: 1 on 06/02/2023 by Miko Pérez MD at [facility] Left: Knee [employer] 11/08/2032 [id number] / / [id number] Cmpnt Fem Kn Lt Cr Cmnt Prm Vngrd Intlk Implanted:Qty: 1 on 06/02/2023 by Miko Pérez MD at [facility] Left: Knee [employer] 04/08/2033 [id number] / / [id number] Cmpnt Ptlr Std 34mm 3 Pg Kn Ser A Implanted:Qty: 1 on 06/02/2023 by Miko Pérez MD at [facility] Left: Knee [employer] 06/29/2027 [id number] / / [id number] [employer] [id number] Vngrd Arcm Kn Ant Stab Implanted:Qty: 1 on 06/02/2023 by Miko Pérez MD at [facility] Left: Knee [employer] 11/19/2024 [id number] BILL ONLY / / [id number] Cmnt Bone Plc R 40gm Grn Implanted:Qty: 1 on 06/02/2023 by Miko Pérez MD at [facility] Left: Knee [employer] 08/30/2025 [id number] / / [id number] Cmnt Bone Plc R 40gm Grn Implanted:Qty: 1 on 06/02/2023 by Miko Pérez MD at [facility] Left: Knee [employer] 10/30/2025 [id number] / / [id number] Procedures Procedure Name Priority Date/Time Associated Diagnosis Comments BASIC METABOLIC PANEL (CALCIUM TOTAL) STAT 06/02/2023 7:31 AM DOUBLE ENDING MACHINE OPERATOR Preop examination from Last 3 Months or Most Recently Relevant to Health Maintenance Results * (ABNORMAL) BASIC METABOLIC PANEL (CALCIUM TOTAL) (06/02/2023 7:31 AM DOUBLE ENDING MACHINE OPERATOR) [facility] Glucose 86 70 - 105 mg/dL 06/02/2023 7:57 AM DOUBLE ENDING MACHINE OPERATOR [facility] Sodium 139 136 - 145 mmol/L 06/02/2023 7:57 AM [facility] Potassium 3.2(L) 3.5 - 5.1 mmol/L 06/02/2023 7:57 AM [facility] Chloride 110(H) 98 - 107 mmol/L 06/02/2023 7:57 AM [facility] CO2 20(L) 22 - 29 mmol/L 06/02/2023 7:57 AM [facility] Calcium 8.6 8.4 - 10.4 mg/dL 06/02/2023 7:57 AM [facility] Anion Gap 9 6 - 16 mmol/L 06/02/2023 7:57 AM [facility] BUN 18 7 - 26 mg/dL 06/02/2023 7:57 AM [facility] Creatinine 0.93 0.72 - 1.25 mg/dL 06/02/2023 7:57 AM [facility] eGFR by CKD-EPI >90 >=90 mL/min/1.7 3 m2 06/02/2023 7:57 AM [facility] Blood BLOOD SPECIMEN / Unknown Venipuncture / Unknown 06/02/2023 7:31 AM DOUBLE ENDING MACHINE OPERATOR 06/02/2023 7:42 AM [facility] Jeanie Valdovinos DO LAB - CHEMISTRY ORDERABLES Jyothi durant Result [facility] [address] [place] [address] from Last 3 Months or Most Recently Relevant to Health Maintenance Insurance [facility] [id number] [id number] MEDICARE ANTHEM Advance Directives * Full Code [...] 11:27 PM 09/13/2018 11:27 PM Care Teams Supercalender Operator Helper Relationship Specialty Start Date End Date Butch De Souza Jr., MD [address] [place] [id number] PCP - General Internal Medicine 02/21/23 Ajay Childs MD [address] [place] [id number] Cardiovascular Disease 04/19/19
--- OUTSIDE RECORDS SUMMARY | 2025-02-14 14:38 | XMS_ITS | Encounter Summary ---
Author Organization [facility] Address [address] [place] [address] Care Team Providers Care Beater Boss Name Role Phone Nolvia Olivares MD, Butch Cross Primary Care Provide r Yessica Worthy MD Unavailable [phone] Tonny Yoon MD Unavailable [phone] Ajay Downs MD Unavailable [phone] Grey Hand RN Unavailable [phone] Kodi Griggs MD Unavailable Reason for Referral * Sleep Medicine (Routine) - Closed Specialty Diagnoses / Procedures Referred By Cecil johnson Referred To Contact Diagnoses LJ on CPAP Procedures PSG-Sleep Provider Use Only Genesis Aguirre MD [address] [place] [address] DR GRAHAM [place] [address] [address] Phone: tel: fax: [address] [phone] Referral ID Status Reason Start Date Expiration Date Visits Re quested Visits Authorized [id number] Closed 01/30/2025 03/01/2026 1 1 Reason for Visit * Sleep Medicine (Routine) - Closed Specialty Diagnoses / Procedures Referred By Cecil johnson Referred To Contact Diagnoses LJ on CPAP Procedures PSG-Sleep Provider Use Only Genesis Aguirre MD [address] [place] [address] DR GRAHAM Kingston [address] [address] Phone: tel: fax: [facility] [address] [place] [address] Referral ID Status Reason Start Date Expiration Date Visits Re quested Visits Authorized [id number] Closed 01/30/2025 03/01/2026 1 1 Encounter Details Date Type Department Care Team (Latest Contact Info) Description 02/12/2025 7:00 PM CDT - 02/12/2025 11:59 PM CDT Hospital Encounter [facility] [address] [place] [address] Obstructive sleep apnea syndrome Discharge Disposition: Discharge to home or self care Social History Tobacco Use Types Packs/Day Years Used Date Smoking Tobacco: Never Passive Smoke Exposure: Never Smokeless Tobacco: Never Alcohol Use Standard Drinks/Week Comments Never 0 (1 standard drink = 0.6 oz pur e alcohol) [facility] Utilities Answer Date Recorded In [...] often do you attend chur ch or mandaen services? Never 11/11/2024 Do you belong to any clubs o r organizations such as episcopalian groups, unions, fraternal or athletic groups, or [...] place to sleep or slept in a skilled nursing (including now)? No 11/18/2023 PHQ-9 Answer Date [...] any time in the past 12 m [facility], were you homeless or living in a skilled nursing (including now)? No 11/11/2024 AUDIT-C Answer Date [...] on file Legal Sex Male 11:58 PM LOCATOR SPECIALIST Gender Identity Not on file Sexual Orientation [...] Description 03/04/2025 7:30 AM CDT Hospital Encounter [facility] [address] [place] [address] Estuardo Aquino MD [address] [facility] [address] [place] [address] NSVT (nonsustained ventricular tachycardia) (HCC); PVC (premature ventricular contraction) 03/04/2025 7:30 AM CDT - 03/04/2025 3:50 PM CDT Surgery [facility] [address] [place] [address] Estuardo Aquino MD [address] [facility] [address] [place] [address] ABLATION VENTRICULAR TACHYCARDIA (VT) INCLUDES 3D MAPPING (WHEN USED) [address] Pending Results Name Type Priority Associated Diagnoses [...] documented as of this encounter Care Teams Beater Boss Relationship Specialty Start Date End Date Butch De Souza Jr., MD [facility] [address] PCP - General Internal Medicine 06/17/21 Yessica Worthy MD [address] [facility] [address] [place] [address] Referring Physician Rheumatology 06/17/21 [place] [address] [place] [address] Consulting Physician Gastroenterology 06/17/21 [place] [address] [facility] [address] [place] [address] Consulting Physician Cardiovascular Disease 07/09/24 Grey Hand RN [address] [place] [address] [address] [place] [address] Merchandising Coordinator 08/12/24 [place] [address] [address] [place] [address] Consulting Physician Pulmonary Disease 12/10/24 documented as of this encounter
--- OUTSIDE RECORDS SUMMARY | 2025-02-14 14:38 | XMS_ITS | Clinical Summary ---
Author Organization [facility] Address [address] [facility] [address] [place] [address] Phone Care Team Providers Care Jack Spinner Name Role Phone Nolvia Olivares MD, Butch [...] times daily as needed. 0 Active omega 0-tqv-fpl-fish oil 360-1,200 mg Capsule, Delayed Release(E.C.) Take [...] Comments Blood Pressure 102/59 07/13/2022 3:53 PM RETAIL EQUIPMENT ASSOCIATE Pulse 65 07/13/2022 3:51 PM RETAIL EQUIPMENT ASSOCIATE Temperature 36.6 C (97.8 F) 07/13/2022 3:51 PM RETAIL EQUIPMENT ASSOCIATE Respiratory Rate 18 07/13/2022 3:51 PM RETAIL EQUIPMENT ASSOCIATE Oxygen Saturation 98% 07/13/2022 3:51 PM RETAIL EQUIPMENT ASSOCIATE Inhaled Oxygen Concentration - - Weight 149.7 kg (330 lb) 05/10/2022 3:44 PM RETAIL EQUIPMENT ASSOCIATE Height 190.5 cm (6' 3) 05/10/2022 3:44 PM RETAIL EQUIPMENT ASSOCIATE Body Mass Index 41.25 05/10/2022 3:44 PM RETAIL EQUIPMENT ASSOCIATE Plan of Treatment Health Maintenance Due Date [...] Comments HEMOGLOBIN A1C Stat 05/21/2020 4:21 PM RETAIL EQUIPMENT ASSOCIATE from Last 3 Months or Most Recently Relevant to Health Maintenance Results * HEMOGLOBIN A1C (05/21/2020 4:21 PM RETAIL EQUIPMENT ASSOCIATE) HEMOGLOBIN A1C 5.5 <=5.6 % 05/22/2020 3:04 AM RETAIL EQUIPMENT ASSOCIATE [facility] EST. AVG GLUCOSE, A1C 111 mg/dL 05/22/2020 3:04 AM RETAIL EQUIPMENT ASSOCIATE [facility] Blood Venipuncture / Unknown 05/21/2020 4:21 PM RETAIL EQUIPMENT ASSOCIATE 05/21/2020 4:29 PM RETAIL EQUIPMENT ASSOCIATE Narrative [facility] [employer] [place] [facility] - 05/22/2020 3:04 AM RETAIL EQUIPMENT ASSOCIATE HGB A1C INTERPRETATION NORMAL: <5.7% PRE-DIABETES: 5.7 - 6.4% DIABETES: 6.5% OR GREATER us Albert Allred MD CHEMISTRY ORDERABLES Final Res ult [facility] [employer] [facility] CLIA# [id number] [place] [address] from Last 3 Months or Most Recently Relevant to Health Maintenance Insurance MEDICARE PART A AND B [facility] BLUE ACCESS/TRUE BLUE PPO Advance Directives For more information, please contact: [phone] * Full Code (Latest Code Status on File) Date Activated Date Inactivated Comments 07/11/2022 5:49 PM 07/13/2022 7:24 PM * Full Code Date Activated Date Inactivated Comments 03/30/2022 12:44 PM 03/30/2022 8:02 PM * Full Code Date Activated Date Inactivated Comments 05/22/2020 6:25 AM 05/23/2020 7:43 PM Care Teams Jack Spinner Relationship Specialty Start Date End Date Butch De Souza Jr., MD [address] [place] [id number] PCP - General Internal Medicine 05/10/22
--- OUTSIDE RECORDS SUMMARY | 2025-02-14 14:38 | XMS_ITS | Clinical Summary ---
Author Organization [facility] Address [address] [address] Care Team Providers Care Take Up Supervisor Name Role Phone Nolvia Olivares MD, Butch Cross Primary Care Provide r Yessica Worthy MD Unavailable Tonny Yoon MD Unavailable Ajay Downs MD Unavailable Grey Hand RN Unavailable Kodi Griggs MD Unavailable Allergies Active Allergy Reactions Criticality Noted Date Comments Aripiprazole Nausea Only Medium 06/04/2014 [facility] Dysfunction Hydrocodone Agitation Low 12/10/2024 Hydroxychloroquine Other [...] cardiology Assessment & Plan (08/19/2024 6:36 AM INSET CUTTER): Continue to take Ranexa/imdur Follows with cardiology Assessment & Plan (07/11/2024 1:43 PM INSET CUTTER): Continue to take Ranexa/imdur Follows with cardiology Lumbar post-laminectomy syndrome 01/22/2024 Spinal stenosis of lumbar re gion with neurogenic claudication 01/08/2024 Assessment & Plan (10/23/2024 2:08 PM CDT): Will continue to follow up with NSY Continue roxicodone prn Assessment & Plan (08/19/2024 6:36 AM INSET CUTTER): Seeing NSY, however several things continue to [...] and establishing or updating healthcare power of deputy county attorney document and providing our office with a [...] and establishing or updating healthcare power of deputy county attorney document and providing our office with a [...] and establishing or updating healthcare power of deputy county attorney document and providing our office with a copy. PTSD (post-traumatic stress disorder) 08/22/2022 Assessment & Plan (08/19/2024 6:36 AM INSET CUTTER): Continue medications as prescribed, cymbalta seroquel Assessment [...] specialists Assessment & Plan (06/22/2023 7:07 PM INSET CUTTER): His improved sense of well-being following the [...] fibrosis. Assessment & Plan (06/09/2022 4:31 PM INSET CUTTER): Assessment & Plan (09/16/2021 11:09 AM CDT): Monitor LFTs Cervical spinal stenosis 05/21/2020 Assessment & Plan (10/23/2024 2:12 PM CDT): Following NSY Takes roxicodone Assessment & Plan (07/11/2024 1:43 PM INSET CUTTER): Seeing NSY, surgery latter this month Spondylosis of cervical joint without myelopathy 05/21/2020 Prediabetes 04/18/2019 Assessment & Plan (09/16/2021 11:06 AM CDT): Continue ozempic, increase dosage Assessment & Plan (07/16/2021 10:52 AM INSET CUTTER): Continue taking ozempic as prescribed by endocrinology [...] dose Assessment & Plan (06/17/2021 8:03 AM INSET CUTTER): Continue stsatin Assessment & Plan (05/14/2020 4:21 PM INSET CUTTER): Low fat low chol diet Continue statin, [...] Ranexa Assessment & Plan (07/11/2024 1:42 PM INSET CUTTER): Has difficulty controlling this at times Continue HCTZ, metoprolol, Ranexa Assessment & Plan (05/24/2024 10:07 AM INSET CUTTER): Ongoing. Do not use OTC medications with [...] Continue Amlodipine and Sotalol. Rheumatoid arthritis of [facility] with negative rheumatoid factor 12/04/2017 Assessment & Plan (10/23/2024 2:05 PM CDT): Continue leflunomide Assessment & Plan (08/19/2024 6:35 AM INSET CUTTER): Continue leflunomide Assessment & Plan (07/11/2024 1:42 PM INSET CUTTER): Continue leflunomide Assessment & Plan (10/23/2023 1:22 PM CDT): Continue leflunomide Assessment & Plan (10/20/2022 1:29 PM CDT): Chronic stable Well controlled Continue current prescribed medications at current dose Assessment & Plan (08/16/2022 10:10 AM INSET CUTTER): Continue follow-up with rheum and pain management Assessment & Plan (06/17/2021 9:04 AM INSET CUTTER): Holding off on medications because the class [...] tomorrow Assessment & Plan (08/19/2024 6:35 AM INSET CUTTER): Chronic stable Well controlled Continue current prescribed medications metoprolol and diltiazem at current dose Assessment & Plan (07/11/2024 1:45 PM INSET CUTTER): Chronic stable Well controlled Continue current prescribed medications metoprolol and diltiazem at current dose Assessment & Plan (04/25/2024 3:27 PM CDT): Chronic stable Well controlled Continue current prescribed medications metoprolol and diltiazem at current dose Assessment & Plan (02/02/2024 10:14 AM CDT): Intermittent. Currently under evaluation by Cardiology. Patient advised to notify brake coupler dinkey a recent ED visit and schedule follow-up [...] dose Assessment & Plan (06/17/2021 8:17 AM INSET CUTTER): S/p abalation Has not had issues with [...] seroquel Assessment & Plan (08/19/2024 6:35 AM INSET CUTTER): Weight is stable Monitor Related to his seroquel Assessment & Plan (07/11/2024 1:45 PM INSET CUTTER): Weight is stable Monitor Related to his seroquel Assessment & Plan (05/24/2024 10:08 AM INSET CUTTER): Work on attempts to lose weight about [...] inspire Assessment & Plan (07/11/2024 1:25 PM INSET CUTTER): 10 years ago was dx, his CPAP got recalled never able to get it back Was told perhaps he could get inspire Resolved Problems Problem Noted Date Diagnosed Date Resolved Date NSVT (nonsustained ventricular tachycardia) 10/16/2024 10/23/2024 Dizziness 07/31/2024 08/16/2024 NSVT (nonsustained ventricular tachycardia) 07/30/2024 08/16/2024 Ascending aortic aneurysm, u nspecified whether ruptured 07/11/2024 07/11/2024 Assessment & Plan (07/11/2024 1:44 PM INSET CUTTER): Continue medications as prescribed stable Class 3 [...] 10/23/2023 Assessment & Plan (09/05/2022 10:19 AM INSET CUTTER): No longer having chest pain Feels like this is improved Is following up with cardiology Atypical chest pain 08/22/2022 10/21/19 23 Hypertensive urgency 08/22/2022 023 Inability to sleep 08/22/2022 Assessment & Plan (09/05/2022 10:17 AM INSET CUTTER): Having issues with sleep Has issues with [...] 6 weeks with AP/Flexion/Extension Lumbar spine films. [facility] care 09/16/2021 Assessment & Plan (09/16/2021 11:10 [...] knee 09/10/2019 09/16/2021 Chronic pain syndrome 05/13/20192022 [facility] prescription opiate use 05/13/2019 08/16/2022 Radiculopathy, lumbosacral region 05/06/2019 10/23/2024 Vitamin B12 deficiency 08/07/201808/16 Intractable migraine with au ra without status migrainosus 05/28/2018 08/16/2022 Insulin resistance 05/01/2018 3 Assessment & Plan (06/17/2021 9:04 AM INSET CUTTER): Will monitor Hgba1c and sugar levels Assessment & Plan (05/14/2020 4:20 PM INSET CUTTER): Diet and exercise Check hba1c Assessment & [...] HLD Assessment & Plan (09/05/2022 10:16 AM INSET CUTTER): Monitor BMI Assessment & Plan (08/16/2022 10:09 AM INSET CUTTER): Monitor weight Has HTN, HLD, ZAMORA Assessment & Plan (09/16/2021 11:07 AM CDT): Working on weight loss Will increase ozempic Assessment & Plan (07/16/2021 10:53 AM INSET CUTTER): Continue to monitor weight Assessment & Plan (06/17/2021 9:10 AM INSET CUTTER): Will try wegovy, should help with weight [...] - 02/12/2025 11:59 PM CDT Hospital Encounter [facility] [address] [place] [address] Obstructive sleep apnea syndrome Discharge Disposition: Discharge to home or self care 02/10/2025 11:30 AM CDT Office Visit [facility] [address], [address] [place] [address] Benjamin Fairbanks MD S/P lumbar spine operation (Primary Dx) 02/10/[address] [facility] Organization [address] [place] [address] Mona Green MA 01/30/2025 10:30 AM CDT Office Visit [facility] [address] [place] [phone] Genesis Aguirre MD Hypersomnia with sleep apnea (Primary Dx); Obstructive sleep apnea syndrome; Morbid obesity with BMI of 40.0-44.9, adult ([facility]) 01/15/2025 2:30 PM CDT Office Visit [facility] [address] [address], [address] [place] [address] Benjamin Fairbanks MD Wound infection after surgery (Primary Dx); S/P lumbar spine operation 12/25/2024 Telephone [facility] [address] [place] [address] [address] [place] [phone] Butch De Souza Jr., MD Medical Question/Miscellaneo us 12/24/2024 7:30 AM CDT - 12/24/2024 9:30 AM CDT Surgery [facility] [place] [address] [place] [address] Benjamin Fairbanks MD LEFT SIDED LUMBAR 1 TO LUMBAR 2 MINIMALLY INVASIVE DECOMPRESSION AND DISCECTOMY 12/24/2024 7:25 AM CDT Anesthesia Event [facility] [place] [address] [place] [address] Brigette Guthrie MD Kuntz, Edward William, MD 12/24/2024 5:17 AM CDT - 12/24/2024 2:05 PM CDT Hospital Encounter [facility] [place] [address] [place] [address] Benjamin Fairbanks MD Lumbar radiculopathy; Spinal stenosis of lumbar region, unspecified whether neurogenic claudication present; Lumbar disc herniation; Rheumatoid arthritis of multiple sites with negative rheumatoid factor ([facility]); Lumbar post-laminectomy syndrome Discharge Disposition: Discharge to home or self care 12/12/2024 Telephone [facility] [address] [place] [address] [place] [phone] Butch De Souza Jr., MD Medical Question/Miscellaneo us 12/10/2024 1:30 PM CDT Pre-Admission Testing [facility] PreAdmission Testing [address] [place] [address] Pre-procedure lab exam (Primary Dx); Lumbar radiculopathy; Spinal stenosis of lumbar region, unspecified whether neurogenic claudication present; Lumbar disc herniation; Pain in other specified joint 12/09/2024 1:[address] [facility] [address] [facility] [address] [place] [address] Rheumatoid arthritis of multiple sites with negative rheumatoid factor (HCC) (Primary Dx) 12/09/2024 Orders Only [facility] PreAdmission Testing [address] [place] [address] Hiwot Liriano RN 12/03/2024 Telephone [facility] [address] [place] [phone] Butch De Souza Jr., MD Medical Question/Miscellaneo us 11/26/2024 Telephone [facility] [address] [place] [phone] Butch De Souza Jr., MD Referral Request 11/21/2024 Results Follow-Up [facility] [address] [place] [phone] Yenni Do NP Drugs of Abuse Screen, Urine with Reflex Confirmation, Oxycodone Confirmation, Urine 11/19/2024 3:35 PM CDT Lab [facility] Lab [address] [place] [address] 11/19/2024 3:00 PM CDT Office Visit [facility] [address] [place] [phone] Yenni Do NP Respiratory syncytial virus [...] of breath); Opioid-induced constipation 11/18/2024 Nurse Triage [facility] [address] [facility] [facility] [address] [place] [phone] Butch De Souza Jr., MD 11/08/2024 9:06 AM CDT - 11/14/2024 12:44 PM CDT Hospital Encounter [facility] 5 Med Surg [address] [place] [address] Jethro Flores MD Gaspe Mudiyanselage, MD Yenifer [...] drink = 0.6 oz pur e alcohol) [facility] Utilities Answer Date Recorded In the past [...] often do you attend chur ch or restorationism services? Never 11/11/2024 Do you belong to any clubs o r organizations such as bahai groups, unions, fraternal or athletic groups, or [...] place to sleep or slept in a mcfp (including now)? No 11/18/2023 PHQ-9 Answer Date [...] any time in the past 12 [facility], were you homeless or living in a mcfp (including now)? No 11/11/2024 AUDIT-C Answer Date [...] on file Legal Sex Male 11:58 PM INSET CUTTER Gender Identity Not on file Sexual Orientation [...] Description 03/04/2025 7:30 AM CDT Hospital Encounter [facility] [address] [place] [address] Estaurdo Aquino MD [address] [place] [address] NSVT (nonsustained ventricular tachycardia) (HCC); PVC (premature ventricular contraction) 03/04/2025 7:30 AM CDT - 03/04/2025 3:50 PM CDT Surgery [facility] [address] [place] [address] Estuardo Aquino MD [address] [facility] [address] [place] [address] ABLATION VENTRICULAR TACHYCARDIA (VT) INCLUDES 3D MAPPING (WHEN USED) 19656 Health Maintenance Due Date Last Done Comments [...] Diana Weems Medical Devices Implanted Type Area Database Management Specialist Device Identifier Shelf Expiration Date Model / Serial / Lot Loop Recorder Chest Wall Quartics [id number] / [id number] / Description:[email or web address] ^ MRI safety information Lumbar Spine Fusion Instrumentation Spine Lumbar Shoulder Components Right: Shoulder Knee Components Bilateral: Knee Procedures Procedure Name Priority Date/Time Associated Diagnosis Comments FL FLUOROSCOPY < 1 HOUR IP Routine 12/24/2024 8:42 AM CDT DE AN PROCEDURE PLACEHOLDER Routine 12/24/2024 8:00 AM CDT DE AN ELECTIVE ENDOTRACHEAL AIRWAY Routine 12/24/2024 8:00 [...] exam HEPATITIS PANEL, ACUTE Routine 9:26 AM INSET CUTTER Hypokalemia Elevated LFTs HM COLONOSCOPY Routine 11/17/2023 [...] FLUOROSCOPY PROCEDUR ES Final Result [id number] * DE AN ELECTIVE ENDOTRACHEAL AIRWAY, DE AN PROCEDURE PLACEHOLDER (12/24/2024 8:00 AM CDT) Narrative Ximena Edwards CRNA - 12/24/2024 8:00 AM CDT Ximena Edwards CRNA 12/24/2024 8:23 AM Airway Patient location: OR Urgency: elective Date/time: 12/24/2024 7:34 AM Indications for airway management: anesthesia Difficult airway: no Staff: Placed by: CURB MACHINE OPERATOR: Ximena Edwards CRNA Emergent airway documentation: Risks [...] ORDE RABRAFIQ Final Result Performing Organization Address [facility] Co de Phone Number [address] [place] [address] * Antibody screen (12/24/2024 6:04 AM CDT) Pathologist [facility] Ashlee, indirect, Gel Interpretation Negative ABSC Blood 12/24/2024 6:04 AM CDT 12/24/2024 6:08 AM CDT Benjamin Fairbanks MD LAB BLOOD BANK TEST ORDE RABRAFIQ Final Result Performing Organization Address [facility] Phone Number [address] [place] [address] * (ABNORMAL) POC Blood Gas and Chemistries, Venous - (12/24/2024 5:59 AM CDT) Pathologist [facility] pH,lc POC 7.42 7.32 - 7.43 pCO2, lc POC 43 40 - 50 mmHg [facility] pO2,lc POC 45 mmHg [facility] Comment: Interpretive Data No reference range established. Current interpretive data was last revised 2020. HCO3, lc (Calc) POC 28 20 - 30 mmol/L [facility] Base excess, lc POC 3 mmol/L [facility] Comment: Interpretive Data No reference range established. Current interpretive data was last revised 2020. Hemoglobin, lc POC 14.6 13.0 - 17.5 g/dL [facility] Hematocrit, lc POC 43.0 38.9 - 50.3 % [facility] Sodium, lc POC 139 135 - 145 mmol/L [facility] Potassium, lc POC 3.1(L) 3.3 - 4.9 mmol/L [facility] Comment: Interpretive Data This method is not able to assess for hemolysis, which may falsely increase potassium concentrations. If further testing is needed to evaluate this result, consider in-laboratory plasma potassium. Current Interpretive Data was last revised on 2022. Glucose, lc POC 85 70 - 199 mg/dL [facility] Ionized Calcium, lc POC 4.50 4.50 - 5.10 mg/dL [facility] Blood 12/24/2024 5:59 AM CDT 12/24/2024 5:59 AM CDT us Benjamin Fairbanks MD LAB POCT ORDERABLES - DE VICE Final Result [facility] [address] Department [place] [address] * eGFR (12/10/2024 1:46 PM CDT) eGFR [...] LAB BLOOD ORDERABLES Final R esult ELIF [address] Department [place] [address] * Differential, auto (12/10/2024 1:46 PM CDT) Pathologist [facility] Neutrophil abs 2.59 1.50 - 6.50 K/cumm Imm gran abs 0.01 0.00 - 0.10 K/cumm [facility] Lymphocyte abs 1.38 0.80 - 3.30 K/cumm [facility] Monocyte abs 0.38 0.20 - 0.80 K/cumm [facility] Eosinophil abs 0.18 0.00 - 0.50 K/cumm [facility] Basophil abs 0.01 0.00 - 0.10 K/cumm [facility] Neutrophil pct 56.9 % [facility] Comment: Interpretive Data Percent cell count reference ranges are not reported, since discordance with absolute values may lead to misinterpretation of CBC data. Current Interpretive Data was last revised on 2017. Imm gran pct 0.2 % [facility] Comment: Interpretive Data Percent cell count reference ranges are not reported, since discordance with absolute values may lead to misinterpretation of CBC data. Current Interpretive Data was last revised on 2017. Lymphocyte pct 30.3 % [facility] Comment: Interpretive Data Percent cell count reference ranges are not reported, since discordance with absolute values may lead to misinterpretation of CBC data. Current Interpretive Data was last revised on 2017. Monocyte pct 8.4 % [facility] Comment: Interpretive Data Percent cell count reference ranges are not reported, since discordance with absolute values may lead to misinterpretation of CBC data. Current Interpretive Data was last revised on 2017. Eosinophil pct 4.0 % [facility] Comment: Interpretive Data Percent cell count reference ranges are not reported, since discordance with absolute values may lead to misinterpretation of CBC data. Current Interpretive Data was last revised on 2017. Basophil pct 0.2 % [facility] Comment: Interpretive Data Percent cell count reference ranges are not reported, since discordance with absolute values may lead to misinterpretation of CBC data. Current Interpretive Data was last revised on 2017. Blood 12/10/2024 1:46 PM CDT 12/10/2024 1:50 PM CDT Ajay Downs MD LAB BLOOD ORDERABLES Final R esult Performing Organization Address [facility] de Phone Number [address] [address] * Infection Prevention MRSA Only (Staphylococcus aureus) PCR Nasal (12/10/2024 1:46 PM CDT) [facility] PCR Scrn, Methicillin resistant Staphylococcus aureus (MRSA) Not Detected Not Detected Comment: Interpretive Data Testing performed using Nucleic Acid Amplification with the [employer] Xpert MRSA NxG Assay. This assay detects target DNA from mecA, mecC and the SCCmec insertion site of Staphylococcus aureus using Real-Time PCR and has been cleared by the FDA. Performance characteristics have been verified by the [facility]. Current Interpretive Data was last revised on 2023 Nasal 12/10/2024 1:46 PM CDT 12/10/2024 1:50 PM CDT Benjamin Fairbanks MD LAB MICROBIOLOGY - GENER AL ORDERABLES Final Result Performing Organization Address [facility] de Phone Number [facility] [address] [place] [address] * CBC with auto differential (12/10/2024 1:46 PM CDT) [facility] WBC 4.55 3.80 - 9.90 K/cumm Hgb 15.7 13.0 - 17.5 g/dL [facility] Hct 45.3 38.9 - 50.3 % [facility] Plt 184 150 - 400 K/cumm [facility] MPV 10.9 9.1 - 12.3 fL [facility] RBC 5.39 4.30 - 5.80 M/cumm [facility] MCV 84.0 81.3 - 96.4 fL [facility] MCH 29.1 27.1 - 33.3 pg [facility] MCHC 34.7 32.3 - 35.7 g/dL [facility] RDW CV 13.3 11.1 - 14.9 % [facility] RDW SD 41.1 35.7 - 48.1 fL [facility] NRBC abs 0.00 0.00 - 0.01 K/cumm [facility] Blood 12/10/2024 1:46 PM CDT 12/10/2024 1:50 PM CDT Ajay Downs MD LAB BLOOD ORDERABLES Final R esult Performing Organization Address [facility] Co de Phone Number [address] [place] [address] * Antibody identification (12/10/2024 1:46 PM CDT) [facility] Antibody Identification Interpretation See Comments Comment: 12/13/2024 17:15 [id number] Current screen is negative. Unable to identify the reason for previous Positive screen. Antibody Identification Interpretation See Comments [facility] Comment: 12/10/2024 14:47 [id number] Previously identified Antibody which is currently not reacting. Blood 12/10/2024 1:46 PM CDT 12/10/2024 1:50 PM CDT Benjamin Fairbanks MD LAB BLOOD BANK TEST JENNY RIOS Edited Result - Final Performing Organization Address [facility] Co de Phone Number [address] [place] [address] * ABO/Rh (12/10/2024 1:46 PM CDT) [facility] ABO/Rh A Positive Blood 12/10/2024 1:46 PM CDT 12/10/2024 1:50 PM CDT Narrative [facility] - 12/10/2024 2:38 PM CDT Is this test being ordered in advance for a procedure?->Yes Expected date of procedure:->11/26/24 Has the patient been transfused in the past 3 months?->No Result [facility] Benjamin Fairbanks MD LAB BLOOD BANK TEST JENNY RIOS Final Result Performing Organization Address [facility] de Phone Number [address] [place] [address] * aPTT (12/10/2024 1:46 PM CDT) aPTT 29 22 - 37 sec Comment: Interpretive data aPTT test has not been evaluated for monitoring heparin therapy. The anti-Xa is the preferred test. Current interpretive data was last revised on 2019. Blood 12/10/2024 1:46 PM CDT 12/10/2024 1:50 PM CDT Result [facility] Benjamin Fairbanks MD LAB BLOOD ORDERABLES Fin al Result Performing Organization Address [facility] de Phone Number [address] [address] * Protime-INR (12/10/2024 1:46 PM CDT) PT 13.9 12.0 - 14.6 sec INR 1.1 0.9 - 1.2 [facility] Comment: Ref Range High Interpretive data Oral anticoagulant therapeutic ranges: Venous thromboembolism prophylaxis or treatment: 2.0-3.0 CARDIOLOGY Standard range: 2.0-3.0 High-intensity range: 2.5-3.5 Refer to indication-specific guidelines for appropriate target ranges for prosthetic heart valve replacement. Current interpretive data was last revised on 2019. Blood 12/10/2024 1:46 PM CDT 12/10/2024 1:50 PM CDT Result [facility] Benjamin Fairbanks MD LAB BLOOD ORDERABLES Fin al Result Performing Organization Address [facility] de Phone Number [address] [place] [address] * Antibody screen (12/10/2024 1:46 PM CDT) [facility] Ashlee, indirect, Gel Interpretation Negative ABSC Blood 12/10/2024 1:46 PM CDT 12/10/2024 1:50 PM CDT Narrative [facility] - 12/10/2024 2:38 PM CDT Is this test being ordered in advance for a procedure?->Yes Expected date of procedure:->11/26/24 Has the patient been transfused in the past 3 months?->No Benjamin Fairbanks MD LAB BLOOD BANK TEST ORDEnma GABRIEL Final Result [address] [place] [address] * (ABNORMAL) Comprehensive metabolic panel (12/10/2024 1:46 PM CDT) [facility] Sodium 140 135 - 145 mmol/L Potassium, pl 3.3 3.3 - 4.9 mmol/L [facility] Chloride 103 97 - 110 mmol/L [facility] CO2 25 22 - 32 mmol/L [facility] Anion gap 12 2 - 15 mmol/L [facility] BUN 19 6 - 25 mg/dL [facility] Creatinine 0.89 0.80 - 1.30 mg/dL [facility] Glucose 109 70 - 199 mg/dL [facility] Comment: Interpretive Data Fasting glucose >/= [...] 2022. Calcium 8.8 8.5 - 10.3 mg/dL [facility] Bilirubin, total 0.4 0.1 - 1.2 mg/dL [facility] Protein, pl 6.8 6.5 - 8.5 g/dL [facility] Albumin 4.1 3.5 - 5.0 g/dL [facility] Alk phos 130 40 - 130 Units/L [facility] ALT 87(H) 7 - 55 Units/L [facility] AST 54(H) 10 - 50 Units/L [facility] Blood 12/10/2024 1:46 PM CDT 12/10/2024 1:50 PM CDT us Ajay Downs MD LAB BLOOD ORDERABLES Final R esult Performing Organization Address City/State/[facility] Co de Phone Number ELIF [phone] [facility] Department [place] [address] * (ABNORMAL) Oxycodone Confirmation, Urine (11/19/2024 3:59 PM CDT) Oxycodone Conf, Ur Confirmed Positive(A) CutOff 50 ng/mL Comment:Testing performed by : [facility], [address] [place]., [address] Oxymorphone Conf, Ur Does Not Confirm CutOff 50 ng/mL [facility] Comment: Interpretive Data This test detects the presence or absence of drug compounds using LC Tandem mass spectrometry and is not intended to assess compliance with prescribed medications. While this test is highly specific, false positive and false negative results may occur in very rare circumstances. Contact the laboratory for consultation, if needed. Performance characteristics were determined by the [facility] in a manner consistent with CLIA requirement and has not been cleared or approved by the U.S. Food and Drug Administration. Current interpretive data was last revised 2020. Testing performed by: [facility], [address] [place]., [address] Urine 11/19/2024 3:59 PM CDT 11/20/2024 12:50 AM CDT us Yenni Do NP LAB URINE ORDERABLES Final R esult ELIF [address] [facility] Department of Laboratories [place], [place] [id number] * (ABNORMAL) Drugs of Abuse Screen, Urine with Reflex Confirmation (11/19/2024 3:59 PM CDT) [facility] Amphetamine, ur Not Detected CutOff 500ng/mL Comment: Interpretive Data - Amphetamines: Samples containing greater than 500 ng/mL d-methamphetamine or other cross-reacting amphetamine compounds are reported as positive. Amphetamine immunoassays are subject to significant false positive rates due to cross-reactivity of non-amphetamine drugs. Confirmatory testing required for definitive results. Current Interpretive Data was last reviewed 2023. Testing performed by: [address] [address] Barbiturates, ur Not Detected CutOff 200ng/mL [facility] Comment: Interpretive Data - Barbiturates: Samples containing greater than 200 ng/mL secobarbital or other cross-reacting barbiturate compounds are reported as positive. False positive and false negative results are possible. Confirmatory testing required for definitive results. Current Interpretive Data was last reviewed 2023. Testing performed by: [address] [address] Benzodiazepines, ur Screen Positive, presumptive (A) CutOff 100ng/mL [facility] Comment: Interpretive Data - Benzodiazepines: Samples containing greater than 100 ng/mL nordiazepam or other cross-reacting compounds are reported as positive. False positive and false negative results are possible. Confirmatory testing required for definitive results. Current Interpretive Data was last reviewed 2023. Testing performed by: [address] [address] Cannabinoids, ur Not Detected CutOff 50 ng/mL [facility] Comment: Interpretive Data - Cannabinoids: Samples containing greater than 50 ng/mL delta-9 THC -COOH or other cross- reacting compounds are reported as positive. False positive and false negative results are possible. Confirmatory testing required for definitive results. Current Interpretive Data was last reviewed 2023. Testing performed by: [address] [address] Cocaine, ur Not Detected CutOff 150ng/mL [facility] Comment: Interpretive Data - Cocaine: Samples containing greater than 150 ng/mL benzoylecgonine or other cross- reacting compounds are reported as positive. False positive and false negative results are possible. Confirmatory testing required for definitive results. Current Interpretive Data was last reviewed 2023. Testing performed by: [facility], [address] [place] [address]., [address] Fentanyl, Ur Not Detected Cutoff 1 ng/mL [facility] Comment: Interpretive Data - Fentanyl: Samples containing greater than 1 ng/mL fentanyl or other cross-reacting fentanyl compounds are reported as positive. False positive and false negative results are possible. Confirmatory testing required for definitive results. Current Interpretive Data was last reviewed 2023. Testing performed by: [address] [address] Methadone, ur Not Detected CutOff 300ng/mL [facility] Comment: Interpretive Data - Methadone: Samples containing greater than 300 ng/mL d,l-methadone or other cross-reacting compounds are reported as positive. False positive and false negative results are possible. Confirmatory testing required for definitive results. Current Interpretive Data was last reviewed 2023. Testing performed by: [address] [address] Opiates, ur Not Detected CutOff 300ng/mL [facility] Comment: Interpretive Data - Opiates: Samples containing greater than 300 ng/mL morphine or other cross-reacting compounds are reported as positive. False positive and false negative results are possible. Confirmatory testing required for definitive results. Current Interpretive Data was last reviewed 2023. Testing performed by: [address] [address] Oxycodone, ur Screen Positive, presumptive (A) CutOff 100ng/mL [facility] Comment: Interpretive Data - Oxycodone: Samples containing greater than 100 ng/mL oxycodone or other cross-reacting compounds are reported as positive. False positive and false negative results are possible. Confirmatory testing required for definitive results. Current Interpretive Data was last reviewed 2023. Testing performed by: [address] [address] Phencyclidine, ur Not Detected CutOff 25 ng/mL [facility] Comment: Interpretive Data - Phencyclidine: Samples containing greater than 25 ng/mL phencyclidine or other cross-reacting compounds are reported as positive. False positive and false negative results are possible. Confirmatory testing required for definitive results. Current Interpretive Data was last reviewed 2023. Testing performed by: [address] [address] Urine Creatinine 121 mg/dL ELIF Comment: Interpretive Data Urine Creatinine: < 10 mg/dL is extremely dilute = or > 10 but < 20 mg/dL is dilute = or > 20 mg/dL is normal Current Interpretive Data was last revised on 2017. Testing performed by: [facility], [address] [place] [address]., [address] Urine 11/19/2024 3:59 PM CDT 11/19/2024 6:19 [...] LAB URINE ORDERABLES Final R esult ELIF [address] [facility] Department of Laboratories [place], [place] [id number] * eGFR (11/14/2024 5:22 AM CDT) eGFR [...] was last reviewed 2021. Testing performed by: [address] [address] Blood 11/14/2024 5:22 AM CDT 11/14/2024 5:45 AM CDT us Parveen Callaway NP LAB BLOOD ORDERABLES Final Re sult ELIF JENSEN [facility] Department [place] [address] * Differential, auto (11/14/2024 5:22 AM CDT) Neutrophil abs 2.05 1.50 - 6.50 K/cumm Comment:Testing performed by : [address] [address] Imm gran abs 0.01 0.00 - 0.10 K/cumm ELIF Comment:Testing performed by : [address] [address] Lymphocyte abs 1.81 0.80 - 3.30 K/cumm ELIF Comment:Testing performed by : [address] [address] Monocyte abs 0.80 0.20 - 0.80 K/cumm ELIF Comment:Testing performed by : [address] [address] Eosinophil abs 0.23 0.00 - 0.50 K/cumm ELIF Comment:Testing performed by : [address] [address] Basophil abs 0.01 0.00 - 0.10 K/cumm ELIF Comment:Testing performed by : [address] [address] Neutrophil pct 41.7 % ELIF Comment: Interpretive Data Percent cell count reference ranges are not reported, since discordance with absolute values may lead to misinterpretation of CBC data. Current Interpretive Data was last revised on 2017. Testing performed by: [address] [address] Imm gran pct 0.2 % [facility] Comment: Interpretive Data Percent cell count reference ranges are not reported, since discordance with absolute values may lead to misinterpretation of CBC data. Current Interpretive Data was last revised on 2017. Testing performed by: [address] [address] Lymphocyte pct 36.9 % [facility] Comment: Interpretive Data Percent cell count reference ranges are not reported, since discordance with absolute values may lead to misinterpretation of CBC data. Current Interpretive Data was last revised on 2017. Testing performed by: [address] [address] Monocyte pct 16.3 % [facility] Comment: Interpretive Data Percent cell count reference ranges are not reported, since discordance with absolute values may lead to misinterpretation of CBC data. Current Interpretive Data was last revised on 2017. Testing performed by: [address] [address] Eosinophil pct 4.7 % [facility] Comment: Interpretive Data Percent cell count reference ranges are not reported, since discordance with absolute values may lead to misinterpretation of CBC data. Current Interpretive Data was last revised on 2017. Testing performed by: [address] [address] Basophil pct 0.2 % [facility] Comment: Interpretive Data Percent cell count reference ranges are not reported, since discordance with absolute values may lead to misinterpretation of CBC data. Current Interpretive Data was last revised on 2017. Testing performed by: [address] [address] Blood 11/14/2024 5:22 AM CDT 11/14/2024 5:45 AM CDT Sherrywin Saner EQUIPMENT OPERATING ENGINEER LAB BLOOD ORDERABLES Final Re sult [facility] [address] [facility] Department [place] [address] * CBC with auto differential (11/14/2024 5:22 AM CDT) WBC 4.91 3.80 - 9.90 K/cumm Comment:Testing performed by : [address] [address] Hgb 14.3 13.0 - 17.5 g/dL ELIF Comment:Testing performed by : [address] [address] Hct 42.5 38.9 - 50.3 % ELIF Comment:Testing performed by : [address] [address] Plt 228 150 - 400 K/cumm ELIF Comment:Testing performed by : [address] [address] MPV 11.0 9.1 - 12.3 fL ELIF Comment:Testing performed by : [address] [address] RBC 5.02 4.30 - 5.80 M/cumm ELIF Comment:Testing performed by : [address] [address] MCV 84.7 81.3 - 96.4 fL ELIF Comment:Testing performed by : [address] [address] MCH 28.5 27.1 - 33.3 pg ELIF Comment:Testing performed by : [address] [address] MCHC 33.6 32.3 - 35.7 g/dL ELIF Comment:Testing performed by : [address] [address] RDW CV 13.6 11.1 - 14.9 % ELIF Comment:Testing performed by : [address], [address] RDW SD 41.8 35.7 - 48.1 fL ELIF JENSEN Comment:Testing performed by : [address] [address] NRBC abs 0.00 0.00 - 0.01 K/cumm ELIF JENSEN Comment:Testing performed by : [address] [address] Blood 11/14/2024 5:22 AM CDT 11/14/2024 5:45 AM CDT Parveen Callaway NP LAB BLOOD ORDERABLES Final Re sult Performing Organization Address City/[facility] Co de Phone Number [address] [place] [address] * Phosphorus (11/14/2024 5:22 AM CDT) Phosphorus, pl 4.5 2.3 - 4.5 mg/dL Comment:Testing performed by : [address] [address] Blood 11/14/2024 5:22 AM CDT 11/14/2024 5:45 AM CDT [address] MD LAB BLOOD ORDERABL ES Final Result Performing Organization Address [facility] Co de Phone Number [address] [address] * (ABNORMAL) Comprehensive metabolic panel (11/14/2024 5:22 AM CDT) Sodium 140 135 - 145 mmol/L Comment:Testing performed by : [address] [address] Potassium, pl 3.6 3.3 - 4.9 mmol/L ELIF JENSEN Comment:Testing performed by : [address] [address] Chloride 101 97 - 110 mmol/L ELIF JENSEN Comment:Testing performed by : [address] [address] CO2 29 22 - 32 mmol/L ELIF JENSEN Comment:Testing performed by : [address] [address] Anion gap 10 2 - 15 mmol/L ELIF Comment:Testing performed by : [address] [address] BUN 19 6 - 25 mg/dL ELIF Comment:Testing performed by : [address] [address] Creatinine 1.20 0.80 - 1.30 mg/dL ELIF Comment:Testing performed by : [address] [address] Glucose 107 70 - 199 mg/dL ELIF [...] was last revised 2022. Testing performed by: [address] [address] Calcium 9.4 8.5 - 10.3 mg/dL ELIF Comment:Testing performed by : [address] [address] Bilirubin, total 0.4 0.1 - 1.2 mg/dL ELIF Comment:Testing performed by : [address] [address] Protein, pl 6.6 6.5 - 8.5 g/dL ELIF Comment:Testing performed by : [address] [address] Albumin 4.0 3.5 - 5.0 g/dL ELIF Comment:Testing performed by : [address] [address] Alk phos 106 40 - 130 Units/L ELIF Comment:Testing performed by : [address] [address] ALT 70(H) 7 - 55 Units/L ELIF Comment:Testing performed by : [facility], [address] [place] [address]., [address] AST 42 10 - 50 Units/L ELIF Comment:Testing performed by : [address] [address] Blood 11/14/2024 5:22 AM CDT 11/14/2024 5:45 AM CDT us Parveen Callaway NP LAB BLOOD ORDERABLES Final Re sult [address] [place] [address] * PSA screen (10/23/2024 2:14 PM CDT) [...] data last revised 21. Testing performed by: [address] [address] Blood 10/23/2024 2:14 PM CDT 10/23/2024 4:25 PM CDT us Butch De Souza Jr., MD LAB BLOOD ORDERABLES Final Result [address] [place] [address] * Hepatitis panel, acute Blood (07/19/2024 9:26 AM INSET CUTTER) Hep A IgM Nonreactive Nonreactive Comment: Interpretive Data: If Hep A IgM Ab is reported as Equivocal, a new sample should be drawn in two weeks for testing. Current interpretive data was last revised on 19. Hep B core IgM Nonreactive Nonreactive [facility] Comment: Interpretive Data If HepB Core IgM Ab is reported as Equivocal, a new sample should be drawn in two weeks for testing. Current interpretive data was last revised on 19. Hep C Ab Nonreactive Nonreactive [facility] Comment: Antibodies to HCV not detected. [...] last revised on 2019. HepBsAg Nonreactive Nonreactive [facility] Blood 07/19/2024 9:26 AM INSET CUTTER 07/19/2024 2:49 PM INSET CUTTER Butch De Souza Jr., MD LAB MICROBIOLOGY - [facility] ORDERABLES Final Result ELIF [address] [facility] Department [place] [address] * (ABNORMAL) COLONOSCOPY (11/17/2023) Scribed Colonoscopy Abnormal Historical Provider HEALTH MAINTENANCE Final Result from Last 3 Months or Most Recently Relevant to Health Maintenance Additional Health Concerns Active Problems Noted Date Diagnosed Date Autogenerated Problem 11/28/2024 Insurance MEDICARE [employer] [place] [employer] [place] [facility] Advance Directives For more information, please contact: [phone] Documents on File Type Date Recorded Patient Alligator Shear Operator Expl anation Power of Technician Inventory Specialist 12/24/2024 5:17 AM * Full Code (Latest [...] 7:53 AM 11/10/2022 6:46 PM Care Teams Take Up Supervisor Relationship Specialty Start Date End Date Butch De Souza Jr., MD [address] [address] [place] [address] PCP - General Internal Medicine 06/17/21 Yessica Worthy MD [address] [facility] [address] [place] [address] Referring Physician Rheumatology 06/17/21 [place] [address] [place] [address] Consulting Physician Gastroenterology 06/17/21 [place] [address] [address] [facility] [address] [place] [address] Consulting Physician Cardiovascular Disease 07/09/24 Grey Hand RN [address] [place] [address] [address] [place] [address] Sewing Demonstrator 08/12/24 [place] [address] [address] [facility] [address] [place] [address] Consulting Physician Pulmonary Disease 12/10/24
--- OUTSIDE RECORDS SUMMARY | 2025-02-14 14:38 | XMS_ITS | Clinical Summary ---
Author Organization [facility] Facility Address [address] [place] [address] Care Team Providers Care School Counselor Name Role Phone Unavailable Primary Care Provider [...] Comments Blood Pressure 160/80 08/04/2023 10:04 AM HEDIS COORDINATOR Pulse 86 08/04/2023 10:04 AM HEDIS COORDINATOR Temperature 36.1 C (97 F) 08/04/2023 10:04 AM HEDIS COORDINATOR Respiratory Rate 18 08/04/2023 10:04 AM HEDIS COORDINATOR Oxygen Saturation 99% 08/04/2023 10:04 AM HEDIS COORDINATOR Inhaled Oxygen Concentration - - Weight 149 kg (329 lb) 08/04/2023 10:04 AM HEDIS COORDINATOR Height 190.5 cm (6' 3) 02/02/2022 10:07 [...] Comments HEMOGLOBIN A1C Routine 07/18/2023 8:45 AM HEDIS COORDINATOR from Last 3 Months or Most Recently Relevant to Health Maintenance Results * Hemoglobin A1c (07/18/2023 8:45 AM HEDIS COORDINATOR) Hemoglobin A1C 5.2 <5.7 % of total Hgb [facility] Comment: For the purpose of screening for the presence of diabetes: <5.7% Consistent with the absence of diabetes 5.7-6.4% Consistent with increased risk for diabetes (prediabetes) > or =6.5% Consistent with diabetes This assay result is consistent with a decreased risk of diabetes. Currently, no consensus exists regarding use of hemoglobin A1c for diagnosis of diabetes in children. According to [place] Diabetes Association (ADA) guidelines, hemoglobin A1c <7.0% represents optimal control in non- diabetic patients. Different metrics may apply to specific patient populations. Standards of Medical Care in Diabetes(ADA). HbA1c performed on iCentera platform. 07/18/2023 8:45 AM HEDIS COORDINATOR 07/18/2023 8:47 AM HEDIS COORDINATOR Narrative [facility] - 07/19/2023 11:03 AM HEDIS COORDINATOR FASTING:YES FASTING: YES Jez Haines DO LAB BLOOD ORDERABLES Final R esult [facility] [address] [place] [address] from Last 3 Months or Most Recently Relevant to Health Maintenance Insurance Medicare [facility]
--- OUTSIDE RECORDS SUMMARY | 2025-02-14 14:38 | XMS_ITS | Encounter Summary ---
Author Organization [facility] Address [address] [place] [address] Phone Care Team Providers Care Agriculture Science Teacher Name Role Phone Swathi Golden RN Unavailable Unavailab Heydi Razo MD Primary Care Provider Heydi Hood MD Primary Care Provider Nolvia Olivares MD, Butch Cross Primary Care Provide r Sheri Mac MD Unavailable Yessica Worthy MD Unavailable Tonny Yoon MD Unavailable Cortney García RN Unavailable Ajay Downs MD Unavailable [phone] Grey Hand RN Unavailable Kodi Griggs MD [...] on file Legal Sex Male 11:58 PM PROFESSIONAL HEALTHCARE REPRESENTATIVE Gender Identity Not on file Sexual Orientation Not on file documented as of this encounter Plan of Treatment Upcoming Encounters Date Type Department Care Team (Latest Contact Info) Description 03/04/2025 7:30 AM CDT Hospital Encounter [facility] Electrophysiology Lab [address] [place] [address] Estuardo Aquino MD [address] [place] [address] NSVT (nonsustained ventricular tachycardia) (HCC); PVC (premature ventricular contraction) 03/04/2025 7:30 AM CDT - 03/04/2025 3:50 PM CDT Surgery [facility] Electrophysiology Lab [address] [place] [address] Estuardo Aquino MD [address] [place] [address] ABLATION VENTRICULAR TACHYCARDIA (VT) INCLUDES 3D MAPPING (WHEN USED) [address] documented as of this encounter Procedures Procedure Name Priority Date/Time Associated Diagnosis Comments SCAN - LABS 09/21/2018 documented in this encounter Results * SCAN - LABS (09/21/2018) us Provider Scanning Final Result documented in this encounter Visit Diagnoses Not on filedocumented in this encounter Additional Health Concerns Infection Onset Date Last Indicated Resolved Time COVID: Suspected 06/14/2021 06/14/2021 06/14/2021 7:24 PM PROFESSIONAL HEALTHCARE REPRESENTATIVE COVID: Suspected 01/16/2022 01/16/2022 01/16/2022 7:20 PM CDT COVID: Suspected 08/22/2022 08/22/2022 08/22/2022 9:42 AM PROFESSIONAL HEALTHCARE REPRESENTATIVE COVID: Suspected 08/04/2024 08/04/2024 08/04/2024 3:41 PM PROFESSIONAL HEALTHCARE REPRESENTATIVE COVID: Suspected 08/05/2024 08/05/2024 08/05/2024 1:23 PM PROFESSIONAL HEALTHCARE REPRESENTATIVE Rhino/Enterovirus 11/08/2024 11/08/2024 11/15/2024 3:05 AM CDT documented as of this encounter Care Teams Agriculture Science Teacher Relationship Specialty Start Date End Date Heydi Hood MD [address] [facility] [address] [address] PCP - General Family Medicine 03/03/21 06/13/21 Heydi Hood MD [address] [facility] [address] [address] PCP - General 06/14/21 06/16/21 Butch De Souza Jr., MD [address] [place] [address] PCP - General Internal Medicine 06/17/21 Swathi Golden RN Registered Nurse 04/15/19 01/18/23 Sheri Mac MD [address] [place] [id number] Endocrinology 06/17/21 12/09/24 Yessica Worthy MD [address] [facility] [address] [place] [address] Referring Physician Rheumatology 06/17/21 [place] [address] [place] [address] Consulting Physician Gastroenterology 06/17/21 Cortney García, LEBRON [address] [place] [address] [facility] [address] [place] [address] Insurance Claim Representative 11/09/23 05/30/24 [place] [address] [address] [facility] [address] [place] [address] Consulting Physician Cardiovascular Disease 07/09/24 Grey Hand RN [address] [place] [address] [address] [place] [address] Insurance Claim Representative 08/12/24 [place] [id number] [address] [place] [address] Consulting Physician Pulmonary Disease 12/10/24 documented as of this encounter
--- OUTSIDE RECORDS SUMMARY | 2025-02-14 14:39 | XMS_ITS | Continuity of Care Document ---
Author Organization [facility] Address [address] [address] [facility] [address] [address] Phone Care Team Providers Care Internet Security Specialist Name Role Phone Jayme Ashley MD, MD [...] Diagnoses Date Provider Providers Copied on Encounter [facility] Node Management [facility], [id number] [place] [address] [address], [place], [place], [id number], tel:[phone] [facility] No Information 5 Gabi Delacruz. [facility], [address], [facility], [place]. tel:[phone] [facility] Node Management [facility], [address], [place], [place], [id number], [place] tel:[phone] SEC Rip Maxwell No Information 5 Gabi Delacruz. [address] [facility], [address], [address], [place]. tel:[phone] [facility], [address], [place], [place], [id number], tel:[phone] [facility] [place] No Information 0 5 Gabi Delacruz. [address], [place], [place], [facility], . tel:[phone] [facility], [address], [place], [place], [id number], tel:[phone] SEC [place] No Information 5 Gabi Delacruz. [address], [address], [place], [place], [facility], . tel:[phone] [facility], [address], [place], [place], [id number], tel:[phone] SEC [place] No Information 5 Gabi Delacruz. [address] [facility], [address], [place], [facility], . tel:[phone] [facility], [address], [place], [place], [id number], [place] [phone] SEC Augie HINDS Professional blurry vision (chief complaint) Nuclear sclerosis 5 Gabi Delacruz. [address], [address], [place], [place], [facility], . [phone] Referring Provider: Nato Hernandez OD F, [address], [place], [address]. tel:[phone] [facility], [address], [place], [place], [id number], [place] tel:[phone] SEC Augie HINDS Professional No Information 5 Gabi Delacruz. [address], [place], [place], [facility], . [phone] Family History Family Member Type Diagnosis Age At Onset No Information Payers Payer name Insurance type Covered libertarian ID Authoriza tion(s) [place] [id number] [facility] [place] Out Of [place] BL [id number] Social History Type Description Quantity Date Captured [...]
--- OUTSIDE RECORDS SUMMARY | 2025-02-14 14:39 | XMS_ITS | Clinical Summary ---
Author Organization [facility] Address [address] [place] [address] Phone Care Team Providers Care Detector Car Operator Name Role Phone Montana Gayle DO Primary Care Provider [phone] Allergies Active Allergy Reactions Criticality Noted Date [...] severe pain. Active APAP-CODEINE & DIET MANAGE [place] PO Take 300 mg by mouth 3 [...] of Treatment Not on file Insurance MEDICARE [facility] Care Teams Detector Car Operator Relationship Specialty Start Date End Date Montana Gayle DO [address] [place] [address] PCP - General Internal Medicine 09/17/18
--- OUTSIDE RECORDS SUMMARY | 2025-02-14 14:39 | XMS_ITS | Encounter Summary ---
Author Organization [facility] Address [address] [place] [address] Care Team Providers Care Kids Activities Coach Name Role Phone Nolvia Olivares MD, Butch Sanhces Primary Care Provider Reason for Visit * Reason Onset Date Comments Chest pain, passed out 07/12/2022 Spoke W/ Tammie at Dr. Downs's office Encounter Details Date Type Department Care Team (Late st Contact Info) Description 07/12/2022 Telephone [facility] Admitting [address] [place] [address] [place] [address] [address] Chest pain, passed out (Spoke [...] Coronavirus/COVID-19? No / Unsure 07/11/2022 5:52 PM SOCIAL SERVICE DIRECTOR documented as of this encounter Plan of Treatment Not on file documented as of this encounter Visit Diagnoses Not on filedocumented in this encounter Care Teams Kids Activities Coach Relationship Specialty Start Date End Date Butch De Souza Jr., MD [address] [place] [phone] PCP - General Internal Medicine 05/10/22 documented as of this encounter
--- OUTSIDE RECORDS SUMMARY | 2025-02-14 14:39 | XMS_ITS | Encounter Summary ---
Author Organization [facility] Address [address] [place] [address] Phone Care Team Providers Care Continuous Miner Operator Helper Name Role Phone Swathi Golden RN Unavailable Unavailab Heydi Raoz MD Primary Care Provider Heydi Hood MD Primary Care Provider Nolvia Olivares MD, Butch Cross Primary Care Provide r Sheri Mac MD Unavailable Yessica Worthy MD Unavailable Tonny Yoon MD Unavailable Cortney García RN Unavailable [phone] Ajay Downs MD Unavailable [phone] Grey Hand RN Unavailable [phone] Kodi Griggs MD Unavailable Encounter Details Date [...] on file Legal Sex Male 11:58 PM SPLITTER HAND Gender Identity Not on file Sexual Orientation Not on file documented as of this encounter Plan of Treatment Upcoming Encounters Date Type Department Care Team (Latest Contact Info) Description 03/04/2025 7:30 AM CDT Hospital Encounter [facility] [address] [place] [address] Estuardo Aquino MD [address] [facility] [address] [place] [address] NSVT (nonsustained ventricular tachycardia) (HCC); PVC (premature ventricular contraction) 03/04/2025 7:30 AM CDT - 03/04/2025 3:50 PM CDT Surgery [facility] [address] [place] [address] Estuardo Aquino MD [address] [place] [address] ABLATION VENTRICULAR TACHYCARDIA (VT) INCLUDES 3D MAPPING (WHEN USED) [id number] documented as of this encounter Procedures Procedure Name Priority Date/Time Associated Diagnosis Comments SCAN - LABS 02/20/2019 documented in this encounter Results * SCAN - LABS (02/20/2019) us Provider Scanning Final Result documented in this encounter Visit Diagnoses Not on filedocumented in this encounter Additional Health Concerns Infection Onset Date Last Indicated Resolved Time COVID: Suspected 06/14/2021 06/14/2021 06/14/2021 7:24 PM SPLITTER HAND COVID: Suspected 01/16/2022 01/16/2022 01/16/2022 7:20 PM CDT COVID: Suspected 08/22/2022 08/22/2022 08/22/2022 9:42 AM SPLITTER HAND COVID: Suspected 08/04/2024 08/04/2024 08/04/2024 3:41 PM SPLITTER HAND COVID: Suspected 08/05/2024 08/05/2024 08/05/2024 1:23 PM SPLITTER HAND Rhino/Enterovirus 11/08/2024 11/08/2024 11/15/2024 3:05 AM CDT documented as of this encounter Care Teams Continuous Miner Operator Helper Relationship Specialty Start Date End Date Heydi Hood MD [address] [facility] [address] [address] PCP - General Family Medicine 03/03/21 06/13/21 Heydi Hood MD [address] [facility] [address] [address] PCP - General 06/14/21 06/16/21 Butch De Souza Jr., MD [address] [place] [id number] PCP - General Internal Medicine 06/17/21 Swathi Golden RN Registered Nurse 04/15/19 01/18/23 Sheri Mac MD [address] [place] [id number] Endocrinology 06/17/21 12/09/24 Yessica Worthy MD [address] [place] [address] Referring Physician Rheumatology 06/17/21 [place] [address] [place] [address] Consulting Physician Gastroenterology 06/17/21 Cortney García, LEBRON [address] [place] [address] [address] [place] [address] [employer] 11/09/23 05/30/24 [place] [address] [address] [facility] [address] [place] [address] Consulting Physician Cardiovascular Disease 07/09/24 Grey Hand RN [address] [place] [address] [address] [place] [address] [employer] 08/12/24 [place] [address] [address] [facility] [address] [place] [address] Consulting Physician Pulmonary Disease 12/10/24 documented as of this encounter
[2025-02-14 14:57] LABS: Hematocrit 48.6 % (42.0-52.0); Hemoglobin 16.6 g/dL (14.0-18.0); Immature Granulocyte Percent A 0.1 % (0-0.5); Lymphocytes Absolute Auto 1.61 K/mm3 (0.9-3.2); Mean Corpuscular HGB Conc 34.2 g/dl (32-36); Mean Corpuscular Hemoglobin 28.2 pg (26-34); Mean Corpuscular Volume 82.7 fl (80-100); Nucleated Red Blood Cells Absolute Auto 0.000 K/mm3 (0.0-0.012); Nucleated Red Blood Cells Perc 0.0 % (0.0-0.2); Platelet Count Result 255 k/mm3 (150-375); Red Blood Count 5.88 M/mm3 (4.6-6.20); White Blood Count 6.8 K/mm3 (4.5-10.0)
[2025-02-14 15:06] LABS: Alanine Aminotransferase 125 U/L (6-50); Albumin Level 4.6 g/dL (3.5-5.1); Alkaline Phosphatase 108 U/L (38-126); Anion Gap 9 mmol/L (4-12); Aspartate Amino Transferase 88 U/L (17-59); Bilirubin,Total 1.2 mg/dL (0.2-1.3); Blood Urea Nitrogen 16 mg/dL (9-20); Calcium 9.3 mg/dL (8.4-10.2); Carbon Dioxide 28 mmol/L (22-30); Chloride 99 mmol/L (98-107); Estimated Glomerular Filt Rate > 60; Glucose 99 mg/dL (65-110); Lipase 134 U/L (23-300); Potassium 3.9 mmol/L (3.4-5.0); Sodium 136 mmol/L (137-145); Total Protein 8.2 g/dL (6.3-8.2)
[2025-02-14] MEDS: ACETAMINOPHEN 500 MG TABLET 1000 MG PO (15:15)
[2025-02-14] MEDS: PROCHLORPERAZINE EDISYLATE 10 MG/2 ML VIAL IM (15:15)
[2025-02-14 15:16] LABS: Troponin I < 0.012 ng/mL (0.000-0.034)
[2025-02-14] MEDS: diazePAM INJ (*CRX) 10 MG/2 ML SYRINGE 5 MG IV PUSH (15:16)
[2025-02-14 15:17] LABS: INR 1.0; Partial Thromboplastin Time 28.8 Seconds (22.3-36.8); Prothrombin Time 13.4 Seconds (11.1-14.7)
[2025-02-14 16:49] VITALS: BP 169/105; PULSE 63; RESP 18; O2SAT 96
--- NOTE | 2025-02-14 17:04 | ED_ITS ---
HPI - General Adult General Chief complaint: Recheck/Abnormal Lab/Rx Stated complaint: HTN Time Seen by Provider: 02/14/25 13:59 History of Present Illness HPI narrative: This is a 64-year-old male a history of migraines and hypertension presenting for multiple complaints. Patient says that his blood pressures have been elevated around 200/100 for the last several days. He is on multiple hypertension meds which he has been taking religiously. Patient has his typical migraine headache. Patient also is says that he has been having chest pain for the last 7 months. Is a sharp pain in the center of his chest that occurs several times a day but he feels is become more frequent. It is not associated with exertion diaphoresis or radiation. Patient has also been feeling lightheaded and dizzy. Patient denies fevers cough shortness of breath abdominal pain urinary symptoms nausea vomiting diarrhea. Related Data Home Medications ?Medication ?Instructions ?Recorded ?Confirmed ?Last Taken ?Type amlodipine 10 mg tablet (Norvasc) 10 mg PO DAILY 01/04/20 04/05/21 07/06/20 09:00 History atorvastatin 40 mg tablet (Lipitor) 40 mg PO DAILY 01/04/20 04/05/21 07/06/20 09:00 History fenofibrate 160 mg tablet 160 mg PO DAILY 01/04/20 04/05/21 07/05/20 17:00 History hydrocodone 10 mg-acetaminophen 1 tablet PO Q8H PRN Pain 01/04/20 04/05/21 Unknown History 325 mg tablet pregabalin 100 mg capsule (Lyrica) 100 mg PO BID 01/04/20 04/05/21 07/06/20 09:00 History topiramate 100 mg tablet (Topamax) 100 mg PO BID 01/04/20 04/05/21 07/06/20 09:00 History venlafaxine 150 mg 300 mg PO DAILY 01/04/20 04/05/21 07/06/20 09:00 History capsule,extended release 24 hr (Effexor XR) cyclobenzaprine 10 mg tablet 10 mg PO BID 04/05/21 04/05/21 Unknown History hydrochlorothiazide 25 mg tablet 25 mg PO DAILY 04/05/21 04/05/21 Unknown History hydroxyzine pamoate 25 mg capsule 25 mg PO HS 04/05/21 04/05/21 Unknown History spironolactone 25 mg tablet 25 mg PO DAILY 04/05/21 04/05/21 Unknown History vortioxetine 10 mg tablet 10 mg PO DAILY 04/05/21 04/05/21 Unknown History (Trintellix) Allergies Allergy/AdvReac Type Severity Reaction Status Date / Time aripiprazole Allergy Unknown Rash Verified 12/05/23 12:41 hydroxychloroquine Allergy Unknown Rash Verified 12/05/23 12:41 methotrexate Allergy Unknown Rash Verified 12/05/23 12:41 sumatriptan Allergy Unknown Rash Verified 12/05/23 12:41 zolpidem Allergy Unknown Rash Verified 12/05/23 12:41 [facility] Past Medical History Medical History Implantable loop recorder present Kidney stones Mitral valve prolapse Glaucoma Hepatic steatosis Posttraumatic stress disorder Transient ischemic attack Obstructive sleep apnea on CPAP Atrial fibrillation Status post ablation. On apixaban for stroke prophylaxis. COVID-19 (07/2020) Rheumatoid arthritis Skin cancer Anxiety Depression Arthritis Fibromyalgia Hypertension Hyperlipidemia Peripheral neuropathy Migraines Surgical History Surgical History Status post surgical removal of malignant neoplasm of skin History of arthroplasty of right shoulder History of arthroscopic knee surgery Status post ablation of atrial fibrillation History of cholecystectomy History of lumbar surgery History of loop recorder Family History Family History Mother Cancer Social History Social History Social History: . Lives with his in [place]. They have 2 children. 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 No alcohol, tobacco, or illicit substance use. Surrogate decision maker: Rubi Menendez, spouse. Code status: Full code. Living arrangements: with family Occupation/Education: retired Exam 2 Narrative: APPEARANCE: No apparent distress. Head: atraumatic. EYES: EOMI, NOSE: Atraumatic NECK: Trachea midline RESPIRATORY: No increased rate of breathing clear to auscultation CARDIOVASCULAR: RRR, no peripheral edema ABDOMINAL: Non-distended soft nontender no guarding rebound MUSCULOSKELETAl: No obvious deformities NEURO: Alert. Moving 4/4 extremities SKIN:: Warm, dry. Normal color PSYCHIATRIC: Normal affect Course Vital Signs Vital signs: Vital Signs Temperature 97.7 F 02/14/25 13:42 Pulse Rate 74 02/14/25 13:42 Respiratory Rate 16 02/14/25 13:42 Blood Pressure 190/120 H 02/14/25 13:42 Pulse Oximetry 99 02/14/25 13:42 Temperature 97.7 F 02/14/25 13:42 Pulse Rate 63 02/14/25 16:49 Respiratory Rate 18 02/14/25 16:49 Blood Pressure 169/105 H 02/14/25 16:49 Pulse Oximetry 96 02/14/25 16:49 Medical Decision Making MDM Narrative Medical decision making narrative: -Course: This is a 64-year-old male presenting with a constellation of symptoms including headache, elevated blood pressure, and chest pain for 6 months. The patient's chest pain is chronic in atypical. Patient has 2- troponins and nonischemic EKG. This is unlikely to be cardiac. This can be followed by his primary care physician and inside account executive. Patient had a headache. He has history of migraines and this was his typical headache with a pounding on the left side of his head. CT negative for acute findings. He received a migraine cocktail and feels significantly better. Coincidentally his blood pressure has now lowered as well. 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 Results were discussed with the patient he is comfortable following up his primary care physician. Discharged with return precautions. -DDX includes but is not limited to: Migraine, tension headache, intracranial hemorrhage, hypertensive emergency, ACS, atypical chest pain psychiatric illness Vital Signs Vital Signs: Vital Signs Temperature 97.7 F 02/14/25 13:42 Pulse Rate 74 02/14/25 13:42 Respiratory Rate 16 02/14/25 13:42 Blood Pressure 190/120 H 02/14/25 13:42 Pulse Oximetry 99 02/14/25 13:42 Temperature 97.7 F 02/14/25 13:42 Pulse Rate 63 02/14/25 16:49 Respiratory Rate 18 02/14/25 16:49 Blood Pressure 169/105 H 02/14/25 16:49 Pulse Oximetry 96 02/14/25 16:49 Lab Data 02/14/25 14:49 02/14/25 14:49 Labs: Lab Results 02/14/25 Range/Units 14:49 WBC 6.8 (4.5-10.0) K/mm3 RBC 5.88 (4.6-6.20) M/mm3 Hgb 16.6 (14.0-18.0) g/dL Hct 48.6 (42.0-52.0) % MCV 82.7 (80-100) fl MCH 28.2 (26-34) pg MCHC 34.2 (32-36) g/dl RDW 13.1 (11.5-14.5) % Plt Count 255 (150-375) k/mm3 MPV 10.2 (7.4-10.4) fl Immature Gran % (Auto) 0.1 (0-0.5) % Neut % (Auto) 62.3 (45.5-73.1) % Lymph % (Auto) 23.7 (18.3-44.2) % Callaway % (Auto) 11.7 H (2.6-8.5) % Eos % (Auto) 1.9 (0-4.4) % Baso % (Auto) 0.3 (0.2-1.2) % Lymph # (Auto) 1.61 (0.9-3.2) K/mm3 Callaway # (Auto) 0.8 H (0.1-0.6) K/mm3 Eos # (Auto) 0.1 (0-0.3) K/mm3 Baso # (Auto) 0.0 (0.0-0.1) K/mm3 Abs Immat Gran (auto) 0.01 (0.00-0.031) K/mm3 Absolute Neuts (auto) 4.2 (1.3-6.7) K/mm3 Absolute Nucleated RBC 0.000 (0.0-0.012) K/mm3 Nucleated RBC % 0.0 (0.0-0.2) % PT 13.4 (11.1-14.7) Seconds INR 1.0 APTT 28.8 (22.3-36.8) Seconds Sodium 136 L (137-145) mmol/L Potassium 3.9 (3.4-5.0) mmol/L Chloride 99 (98-107) mmol/L Carbon Dioxide 28 (22-30) mmol/L Anion Gap 9 (4-12) mmol/L BUN 16 (9-20) mg/dL Creatinine 0.95 (0.7-1.3) mg/dL Estim Creat Clear Calc Not Reportable Estimated GFR > 60 (59 - ) Glucose 99 (65-110) mg/dL Calcium 9.3 (8.4-10.2) mg/dL Total Bilirubin 1.2 (0.2-1.3) mg/dL AST 88 H (17-59) U/L ALT 125 H (6-50) U/L Alkaline Phosphatase 108 (38-126) U/L Troponin I < 0.012 (0.000-0.034) ng/mL Total Protein 8.2 (6.3-8.2) g/dL Albumin 4.6 (3.5-5.1) g/dL Lipase 134 (23-300) U/L Discharge Plan Discharge Clinical Impression: Migraine, Atypical chest pain Patient Disposition: Home Condition: Stable Instructions: Antibiotic Form, Acute Headache (DC), Hypertension (ED) Additional Instructions: You were seen in the emergency department for a headache. Please continue to take her migraine medication as directed. Please follow-up with your primary care physician and your inside account executive for further management. If you develop any new worsening symptoms please return to the ED for re-evaluation. Patient Language: Greek Prescriptions: No Action atorvastatin [Lipitor] 40 mg tablet 40 mg PO DAILY venlafaxine [Effexor XR] 150 mg capsule,extended release 24hr 300 mg PO DAILY hydrocodone-acetaminophen 10-325 mg tablet 1 tablet PO Q8H PRN (Reason: Pain) amlodipine [Norvasc] 10 mg tablet 10 mg PO DAILY topiramate [Topamax] 100 mg tablet 100 mg PO BID fenofibrate 160 mg tablet 160 mg PO DAILY pregabalin [Lyrica] 100 mg capsule 100 mg PO BID aspirin [Children's Aspirin] 81 mg Tablet,Chewable 81 mg PO DAILY@0800 Qty: 30 0RF Eliquis 5 mg Tablet 5 mg PO Q12HR Qty: 60 1RF amoxicillin-pot clavulanate 875-125 mg tablet 1 tablet PO Q12H Qty: 10 0RF doxycycline hyclate 100 mg capsule 100 mg PO BID Qty: 10 0RF cyclobenzaprine 10 mg Tablet 10 mg PO BID spironolactone 25 mg Tablet 25 mg PO DAILY hydrochlorothiazide 25 mg Tablet 25 mg PO DAILY hydroxyzine pamoate 25 mg Capsule 25 mg PO HS Trintellix 10 mg Tablet 10 mg PO DAILY lisinopril 40 mg tablet 40 mg PO DAILY Qty: 30 0RF acetaminophen 500 mg capsule 1,000 mg PO Q6H PRN (Reason: pain) Qty: 20 0RF dicyclomine 10 mg capsule 10 mg PO BID PRN (Reason: abdominal pain) Qty: 10 0RF Follow-up/Referrals: Nolvia,Butch Cross Jr., MD [Primary Care Provider] - 3 Days (HTN, MIgraine, CP)
[2025-02-14 17:42] LABS: Troponin I < 0.012 ng/mL (0.000-0.034)
[2025-02-14 18:02] VITALS: BP 156/89
== END 2025-02-14 18:03 | disposition home or self-care (01) ==
PROVIDERS: Emergency Provider Emergency Medicine; PCP Hospitalist
DX: R07.89 Other chest pain (principal); G43.909 Migraine, unspecified, not intractable, without status migrainosus; I10 Essential (primary) hypertension; I34.1 Nonrheumatic mitral (valve) prolapse; I48.91 Unspecified atrial fibrillation; E78.5 Hyperlipidemia, unspecified; H40.9 Unspecified glaucoma; G47.33 Obstructive sleep apnea (adult) (pediatric); G62.9 Polyneuropathy, unspecified; M79.7 Fibromyalgia; M06.9 Rheumatoid arthritis, unspecified; F43.10 Post-traumatic stress disorder, unspecified; F41.9 Anxiety disorder, unspecified; F32.A Depression, unspecified; Z96.611 Presence of right artificial shoulder joint; Z86.73 Personal history of transient ischemic attack (TIA), and cerebral infarction without residual deficits; Z86.16 Personal history of COVID-19; Z85.828 Personal history of other malignant neoplasm of skin; Z87.442 Personal history of urinary calculi; Z90.49 Acquired absence of other specified parts of digestive tract; Z79.01 Long term (current) use of anticoagulants; Z79.899 Other long term (current) drug therapy; Z79.82 Long term (current) use of aspirin; I45.10 Unspecified right bundle-branch block
CPT/HCPCS: 36415; 70450; 71045; 80053; 83690; 84484; 85025; 85610; 85730; 93005; 96372; 96374; 96375; 99284; A9270; J0780; J1200; J3360

== ENCOUNTER 2025-03-14 18:24 | Emergency (ER) | payer MEDICARE, BC, SELFPAY ==
--- OUTSIDE RECORDS SUMMARY | 2014-11-17 04:00 | XMS_ITS | Continuity of Care Document ---
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 Name Role Phone Jayme Ashley MD, MD Unavailable Unavailab le Allergies, Adverse Reactions, Alerts Substance Reaction Status Criticality ZOLPIDEM TARTRATE Active No Informa tion methotrexate Active No Information aripiprazole Active No Information SUMATRIPTAN SUCCINATE Active No Inf ormation sumatriptan Active No Information HYDROXYCHLOROQUINE SULFATE Active N o Information Medications Medication Instructions Dosage Effective Dates (start - stop) Status Comments prednisolone acetate 1 % eye drops,suspension instill 1 Drop by Ophthalmic route in the operated eye QID as directed - Active WelChol 625 mg tablet - Active lisinopril 10 mg tablet take 1 tablet by oral route every day 10 MG - Active warfarin 4 mg tablet take 1 tablet by oral route every day 4 MG - Active sotalol 80 mg tablet - Active FISH OIL (unknown strength) Not Available - Active ranitidine 150 mg tablet - Active potassium chloride ER 10 mEq capsule,extended release take 2 capsule by oral route every day with food 20 MEQ - Active tamsulosin ER 0.4 mg capsule,extended release 24 hr take 1 capsule by oral route every day 1/2 hour following the same meal each day 0.4 MG - Active nortriptyline 25 mg capsule - Active quetiapine 300 mg tablet take 1 tablet by oral route every day 300 MG - Active VENLAFAXINE HCL ER (unknown strength) take 1 capsule by oral route every day Not Available - Active gabapentin 300 mg capsule take 1 capsule by oral route 3 times every day 300 MG - Active escitalopram 20 mg tablet take 1 tablet by oral route every day 20 MG - Active Vitamin C 500 mg tablet - Active PROBIOTIC (unknown strength) Not Available - Active vitamin E 400 unit capsule - Active COQ-10 (unknown strength) Not Available - Active Nitrostat 0.[address] 1 tablet by sublingual route at the 1st sign of attack; may repeat every 5 min until relief; if pain persists after 3 tablets in 15 min, prompt medical attention is recommended 0.4 MG - Active hydrocodone 10 mg-acetaminophen 325 mg tablet - Active carisoprodol 350 mg tablet - Active Remicade 100 mg intravenous solution - Active naproxen sodium 220 mg capsule - Active verapamil 40 mg tablet - Active Voltaren 1 % topical gel apply (2G) by topical route 4 times every day to the affected area(s) - Active Procedures Procedure Date Remove Cataract, Insert Lens IOLMaster-Professional Remove Cataract, Insert Lens IOLMaster-Professional Eye Exam, New Patient No Charge Refraction IOLMaster-Technical Advance Directives Directive Yes / No Effective Date File Name No Information Encounters Encounter Description Practice Location Reason(s) For Visit Diagnoses Date Provider Providers Copied on Encounter [facility] [employer] [facility], [id number] [place] [address] [address], [place], [place], [id number], tel:[phone] [facility] No Information 5 Gabi Delacruz. [address] [facility], [address], [facility], [place]. tel:[phone] [facility] [employer] [facility], [address], [place], [place], [id number], [place] tel:[phone] SEC Rip Maxwell No Information 5 Gabi Delacruz. [address] [facility], [address], [address], [place]. tel:[phone] [facility], [address], [place], [place], [address], tel:[phone] [facility] [place] No Information 0 5 Gabi Delacruz. [address], [address], [place], [place], [facility], . tel:[phone] [facility], [address], [place], [place], [id number], tel:[phone] SEC Rip N Lind[place] No Information 5 Gabi Delacruz. [address], [address], [place], [place], [facility], . tel:[phone] [facility], [address], [place], [place], [id number], tel:[phone] SEC Rip N [place] No Information 5 Gabi Delacruz. [address] [facility], [address], [place], [place], [facility], . tel:[phone] [facility], [address], [place], [place], [address], [place] [phone] SEC Augie HINDS Professional blurry vision (chief complaint) Nuclear sclerosis 5 Gabi Delacruz. [address], [address], [place], [place], [facility], . [phone] Referring Provider: Nato Hernandez OD F, [address] [facility] [address], [place], [address]. tel:[phone] [facility], [address], [place], [place], [address], [place] tel:[phone] SEC Augie HINDS Professional No Information 5 Gabi Delacruz. [address], [address], [place], [place], [facility], . [phone] Family History Family Member Type Diagnosis Age At Onset No Information Payers Payer name Insurance type Covered green party ID Authoriza tion(s) Medicare [place] [id number] [facility] [place] Out Of [place] [id number] Social History Type Description Quantity Date Captured Comments Sex Male Smoking Status No Information Chief Complaint And Reason For Visit No Information Reason For Referral Reason For Referral No Information History Of Present Illness Encounter Date Complaint History Of Prese nt Illness blurry vision The 54 year old male presents for a cataract evaluation. Patient c/o blurry vision and c/o glare at night. Functional Status Date Functional Assessmen t No Information Instructions Date Instruction Additional Infor ken - schedule cataract surgery OS f irst then OD Related to Nuclear sclerosis - Cataracts account for the patient's complaints. Discussed all risks, benefits, procedures and recovery. Patient understands changing glasses will not improve vision. Patient desires to have surgery, recommend phacoemulsification with intraocular lens. Schedule cataract surgery OS first then OD Related to Nuclear sclerosis Nuclear sclerosis - Educational material given Related to Nuclear sclerosis Assessments Type Assessment Date No Information Patient Care Teams Name Effective Dates (start - stop) Status Members No Information
[2025-03-14] VITALS (20 sets, daily range): BP systolic 164–224; BP diastolic 78–139; PULSE 65–80; RESP 14–25; TEMP 36.6; O2SAT 92–98
--- NOTE | ~2025-03-14 | XR_ITS ---
EXAMINATION: XR chest 2V 03/14/2025 19:09 INDICATION: Chest pain PROCEDURE: 2 view chest COMPARISON: Comparison to multiple prior studies sequentially, with oldest reviewed study dated 04/05/2021. FINDINGS: The lungs are clear. The cardiomediastinal silhouette is within normal limits. There are no pleural effusions. There is no pneumothorax suspected. Healed right rib fractures. No acute osseous abnormality. IMPRESSION: 1: NO ACUTE CARDIOPULMONARY DISEASE. Reviewed, dictated and finalized at location O.
--- NOTE | 2025-03-14 18:25 | ECG_ITS ---
Test Date: 2025-03-14 18:48:15 Measurements Intervals [place] Rate: 74 P: 83 RI: 155 QRS: -5 QRSD: 92 T: 29 QT: 443 QTc: 494 Interpretive Statements SINUS RHYTHM WITH FREQUENT VENTRICULAR PREMATURE COMPLEXES PROLONGED QT INTERVAL NONSPECIFIC ABNORMALITY ABNORMAL ECG Compared to ECG 02/14/2025 14:44:45 Ventricular premature complex(es) now present Prolonged QT interval now present Incomplete right bundle-branch block no longer present Electronically Signed On 03-15-2025 12:16:30 CDT by Rich Galindo M.D.
--- NOTE | 2025-03-14 18:30 | ED.ARRPALP ---
HPI - Arrhythmia/Palpitations General Chief Complaint: Arrhythmia/Palpitations <WM Funes Last Filed: 03/14/25 18:44> Stated Complaint: palpitations <WM Funes Last Filed: 03/14/25 18:44> Time Seen by Provider: 03/14/25 18:30 <WM Funes Last Filed: 03/14/25 18:44> Focused HPI: Patient is a 64 y/o male who presents to the ED with c/o palpitations and HTN. Patient reports he underwent cardiac ablation for hx of frequent PVCs at [facility] 1.5 weeks ago. He is unsure the scrum coach who performed the procedure. He typically follows with cardiology at [facility]. Reports today he began having palpitations/PVCs again. He states the palpitations knock the wind out of him and cause pain. He also reported having a persistent headache today. He took his BP at home and noted it to be elevated to 230s/130s. He has hx of HTN and is on amlodipine, HCTZ, lisinopril. Reports compliance with this. States the BENDER became more severe approx 30 minutes prior to arrival and patient began having tunnel vision, chills, diaphoresis/clammy sensation. He then drove himself to the ED. Denies current CP/SOB. GENERAL: Mildly ill-appearing, morbidly obese with BMI of 42.4, and in no acute distress. HEAD: Normocephalic, atraumatic. CHEST: Clear to auscultation. ?No respiratory distress. HEART: Regular rate and rhythm.?Frequent ectopy heard w/ auscultation NEURO: ?Alert and oriented x3. Patient screened in triage and initial orders placed.? ?Additional care and disposition to be based upon?diagnostic testing and treatment. <WM Funes Last Filed: 03/14/25 18:44> Source: patient <WM Funes Last Filed: 03/14/25 18:44> Mode of arrival: ambulatory <WM Funes Last Filed: 03/14/25 18:44> Limitations: no limitations <Chana Chavez PA-C - Last Filed: 03/14/25 18:44> Related Data Home Medications: Home Medications ?Medication ?Instructions ?Recorded ?Confirmed ?Last Taken ?Type amlodipine 10 mg tablet (Norvasc) 10 mg PO DAILY 01/04/20 04/05/21 07/06/20 09:00 History atorvastatin 40 mg tablet (Lipitor) 40 mg PO DAILY 01/04/20 04/05/21 07/06/20 09:00 History fenofibrate 160 mg tablet 160 mg PO DAILY 01/04/20 04/05/21 07/05/20 17:00 History hydrocodone 10 mg-acetaminophen 1 tablet PO Q8H PRN Pain 01/04/20 04/05/21 Unknown History 325 mg tablet pregabalin 100 mg capsule (Lyrica) 100 mg PO BID 01/04/20 04/05/21 07/06/20 09:00 History topiramate 100 mg tablet (Topamax) 100 mg PO BID 01/04/20 04/05/21 07/06/20 09:00 History venlafaxine 150 mg 300 mg PO DAILY 01/04/20 04/05/21 07/06/20 09:00 History capsule,extended release 24 hr (Effexor XR) cyclobenzaprine 10 mg tablet 10 mg PO BID 04/05/21 04/05/21 Unknown History hydrochlorothiazide 25 mg tablet 25 mg PO DAILY 04/05/21 04/05/21 Unknown History hydroxyzine pamoate 25 mg capsule 25 mg PO HS 04/05/21 04/05/21 Unknown History spironolactone 25 mg tablet 25 mg PO DAILY 04/05/21 04/05/21 Unknown History vortioxetine 10 mg tablet 10 mg PO DAILY 04/05/21 04/05/21 Unknown History (Trintellix) <Chana Chavez PA-C - Last Filed: 03/14/25 18:44> Allergies/Adverse Reactions: Allergies Allergy/AdvReac Type Severity Reaction Status Date / Time aripiprazole Allergy Unknown Rash Verified 03/14/25 18:29 hydroxychloroquine Allergy Unknown Rash Verified 03/14/25 18:29 methotrexate Allergy Unknown Rash Verified 03/14/25 18:29 sumatriptan Allergy Unknown Rash Verified 03/14/25 18:29 zolpidem Allergy Unknown Rash Verified 03/14/25 18:29 <Chana Chavez PA-C - Last Filed: 03/14/25 18:44> Review of Systems Review of Systems: All systems are reviewed and are negative unless stated otherwise in the HPI. <Audra Perea MD - Last Filed: 03/14/25 22:52> PMFSH Past Medical History Medical History: Medical History Implantable loop recorder present Kidney stones Mitral valve prolapse Glaucoma Hepatic steatosis Posttraumatic stress disorder Transient ischemic attack Obstructive sleep apnea on CPAP Atrial fibrillation Status post ablation. On apixaban for stroke prophylaxis. COVID-19 (07/2020) Rheumatoid arthritis Skin cancer Anxiety Depression Arthritis Fibromyalgia Hypertension Hyperlipidemia Peripheral neuropathy Migraines <Chana Chavez PA-C - Last Filed: 03/14/25 18:44> Surgical History Surgical History: Surgical History Status post surgical removal of malignant neoplasm of skin History of arthroplasty of right shoulder History of arthroscopic knee surgery Status post ablation of atrial fibrillation History of cholecystectomy History of lumbar surgery History of loop recorder <Chana Chavez PA-C - Last Filed: 03/14/25 18:44> Family History Family History: Family History Mother Cancer <Chana Chavez PA-C - Last Filed: 03/14/25 18:44> Social History Social History: Social History Social History: . Lives with his in [place]. They have 2 children. 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 No alcohol, tobacco, or illicit substance use. Surrogate decision maker: Rubi Shon, spouse. Code status: Full code. Living arrangements: with family Occupation/Education: retired <WM Funes Last Filed: 03/14/25 18:44> Exam Narrative: General: Alert, awake, afebrile, in no acute distress. HEENT: PERRL, no rhinorrhea, no post nasal drip, oropharynx clear. Neck: Trachea midline, no JVD, no lymphadenopathy. Cardiovascular: Regular rate and rhythm, no murmurs, rubs or gallops, no peripheral edema. Respiratory: Clear to auscultation bilaterally, no tachypnea, no wheezing, no rhonchi, no rubs, no respiratory distress. Abdomen: Soft, nontender, nondistended, no rebound, no guarding, no peritoneal signs. Musculoskeletal: No joint swelling or deformity, normal muscle tone. Skin: No rashes or petechia, no signs of infection. Psychiatric: Alert and oriented, normal behavior and judgment for situation. Neurological: Alert and oriented to person, place, and time. Follows all commands. No focal deficits, speech is clear and fluent. <Audra Perea MD - Last Filed: 03/14/25 22:52> Course Vital Signs Vital signs: Vital Signs Temperature 97.9 F 03/14/25 18:27 Pulse Rate 80 03/14/25 18:27 Respiratory Rate 16 03/14/25 18:27 Blood Pressure 187/101 H 03/14/25 18:27 Pulse Oximetry 98 03/14/25 18:27 Temperature 97.9 F 03/14/25 18:27 Pulse Rate 73 03/14/25 21:32 Respiratory Rate 22 H 03/14/25 21:32 Blood Pressure 174/83 H 03/14/25 21:32 Pulse Oximetry 96 03/14/25 21:32 <Chana Chavez PA-C - Last Filed: 03/14/25 18:44> Vital Signs Temperature 97.9 F 03/14/25 18:27 Pulse Rate 80 03/14/25 18:27 Respiratory Rate 16 03/14/25 18:27 Blood Pressure 187/101 H 03/14/25 18:27 Pulse Oximetry 98 03/14/25 18:27 Temperature 97.9 F 03/14/25 18:27 Pulse Rate 73 03/14/25 21:32 Respiratory Rate 22 H 03/14/25 21:32 Blood Pressure 174/83 H 03/14/25 21:32 Pulse Oximetry 96 03/14/25 21:32 <Audra Perea MD - Last Filed: 03/14/25 22:52> MDM - Arrhythmia/Palpitations MDM Narrative Medical decision making narrative: MSE by MAYANK in triage. <Chana Chavez PA-C - Last Filed: 03/14/25 18:44> MSE by MAYANK in triage. The patient was evaluated by myself in the emergency department. History is obtained from patient who is an independent historian and physical exam was performed. External medical records were reviewed at this time. IV was established and pertinent tests were ordered. Patient was administered 10 mg IV hydralazine for an elevated blood pressure of 189/79 mmHg. Patient's repeat blood pressure currently is 155/78 mmHg. EKG was obtained which revealed sinus rhythm rate 74 beats per minute with frequent PVCs. No ST changes, T wave inversions or evidence of acute ischemia. EKG was independently interpreted by me and is currently pending official cardiology read. Laboratory results obtained revealing no acute process. Initial troponin negative. 3 hour troponin also negative. Imaging studies obtained included CXR which was independently interpreted by me revealing no acute cardiopulmonary disease, which is pending final radiology interpretation. Differential diagnosis considerations include dehydration, electrolyte derangements, acute viral syndrome, acute coronary syndrome, arrhythmia. Comorbidities impacting this visit include recent ablation therapy for frequent PVC's. I have evaluated and discussed social determinants of health with the patient that could potentially impact subsequent diagnosis and treatment plans. At this time, [facility] transfer line was contacted at this time and I did speak with the on-call EP physician Dr. Dominguez at [phone] who recommended starting the patient on metoprolol 25 mg extended release daily and to inform him that he will notify his EP physician and he will receive a call tomorrow for follow-up appointment. On repeat assessment of the patient, reevaluation revealed that the patient is doing well and is in no acute distress. Patient symptoms have improved since he arrived to our emergency department. Repeat vital signs were all reviewed and noted to be stable. Differential diagnosis and treatment plan were discussed with the patient at bedside. Patient agrees with discussion and after shared medical decision making agrees with discharge. All questions were answered to the patient's satisfaction. Patient will follow up with his EP in 3-5 days. Patient was provided with strict return precautions and instructed to return to the emergency department if any new or worsening symptoms develop. The patient was discharged in stable condition. <Audra Perea MD - Last Filed: 03/14/25 22:52> Lab Data Result diagrams: 03/14/25 18:54 03/14/25 18:54 <Chana Chavez PA-C - Last Filed: 03/14/25 18:44> Labs: Lab Results 03/14/25 03/14/25 Range/Units 18:54 21:41 WBC 8.0 (4.5-10.0) K/mm3 RBC 5.67 (4.6-6.20) M/mm3 Hgb 16.1 (14.0-18.0) g/dL Hct 47.8 (42.0-52.0) % MCV 84.3 (80-100) fl MCH 28.4 (26-34) pg MCHC 33.7 (32-36) g/dl RDW 13.2 (11.5-14.5) % Plt Count 265 (150-375) k/mm3 MPV 9.9 (7.4-10.4) fl Immature Gran % (Auto) 0.2 (0-0.5) % Neut % (Auto) 62.5 (45.5-73.1) % Lymph % (Auto) 23.2 (18.3-44.2) % Cecil % (Auto) 11.3 H (2.6-8.5) % Eos % (Auto) 2.6 (0-4.4) % Baso % (Auto) 0.2 (0.2-1.2) % Lymph # (Auto) 1.86 (0.9-3.2) K/mm3 Cecil # (Auto) 0.9 H (0.1-0.6) K/mm3 Eos # (Auto) 0.2 (0-0.3) K/mm3 Baso # (Auto) 0.0 (0.0-0.1) K/mm3 Abs Immat Gran (auto) 0.02 (0.00-0.031) K/mm3 Absolute Neuts (auto) 5.0 (1.3-6.7) K/mm3 Absolute Nucleated RBC 0.000 (0.0-0.012) K/mm3 Nucleated RBC % 0.0 (0.0-0.2) % PT 13.2 (11.1-14.7) Seconds INR 1.0 APTT 28.7 (22.3-36.8) Seconds Sodium 140 (137-145) mmol/L Potassium 3.9 (3.4-5.0) mmol/L Chloride 103 (98-107) mmol/L Carbon Dioxide 28 (22-30) mmol/L Anion Gap 9 (4-12) mmol/L BUN 17 (9-20) mg/dL Creatinine 0.98 (0.7-1.3) mg/dL Estim Creat Clear Calc 104 ml/min Estimated GFR > 60 (59 - ) Glucose 100 (65-110) mg/dL Calcium 9.0 (8.4-10.2) mg/dL Magnesium 1.8 (1.6-2.3) mg/dL Total Bilirubin 0.9 (0.2-1.3) mg/dL AST 66 H (17-59) U/L ALT 104 H (6-50) U/L Alkaline Phosphatase 124 (38-126) U/L Troponin I < 0.012 < 0.012 (0.000-0.034) ng/mL NT-Pro-B Natriuret Pep 842 H (19.9-100) pg/mL Total Protein 8.3 H (6.3-8.2) g/dL Albumin 4.8 (3.5-5.1) g/dL Lipase 127 (23-300) U/L <Chana Chavez PA-C - Last Filed: 03/14/25 18:44> Lab Results 03/14/25 03/14/25 Range/Units 18:54 21:41 WBC 8.0 (4.5-10.0) K/mm3 RBC 5.67 (4.6-6.20) M/mm3 Hgb 16.1 (14.0-18.0) g/dL Hct 47.8 (42.0-52.0) % MCV 84.3 (80-100) fl MCH 28.4 (26-34) pg MCHC 33.7 (32-36) g/dl RDW 13.2 (11.5-14.5) % Plt Count 265 (150-375) k/mm3 MPV 9.9 (7.4-10.4) fl Immature Gran % (Auto) 0.2 (0-0.5) % Neut % (Auto) 62.5 (45.5-73.1) % Lymph % (Auto) 23.2 (18.3-44.2) % Cecil % (Auto) 11.3 H (2.6-8.5) % Eos % (Auto) 2.6 (0-4.4) % Baso % (Auto) 0.2 (0.2-1.2) % Lymph # (Auto) 1.86 (0.9-3.2) K/mm3 Cecil # (Auto) 0.9 H (0.1-0.6) K/mm3 Eos # (Auto) 0.2 (0-0.3) K/mm3 Baso # (Auto) 0.0 (0.0-0.1) K/mm3 Abs Immat Gran (auto) 0.02 (0.00-0.031) K/mm3 Absolute Neuts (auto) 5.0 (1.3-6.7) K/mm3 Absolute Nucleated RBC 0.000 (0.0-0.012) K/mm3 Nucleated RBC % 0.0 (0.0-0.2) % PT 13.2 (11.1-14.7) Seconds INR 1.0 APTT 28.7 (22.3-36.8) Seconds Sodium 140 (137-145) mmol/L Potassium 3.9 (3.4-5.0) mmol/L Chloride 103 (98-107) mmol/L Carbon Dioxide 28 (22-30) mmol/L Anion Gap 9 (4-12) mmol/L BUN 17 (9-20) mg/dL Creatinine 0.98 (0.7-1.3) mg/dL Estim Creat Clear Calc 104 ml/min Estimated GFR > 60 (59 - ) Glucose 100 (65-110) mg/dL Calcium 9.0 (8.4-10.2) mg/dL Magnesium 1.8 (1.6-2.3) mg/dL Total Bilirubin 0.9 (0.2-1.3) mg/dL AST 66 H (17-59) U/L ALT 104 H (6-50) U/L Alkaline Phosphatase 124 (38-126) U/L Troponin I < 0.012 < 0.012 (0.000-0.034) ng/mL NT-Pro-B Natriuret Pep 842 H (19.9-100) pg/mL Total Protein 8.3 H (6.3-8.2) g/dL Albumin 4.8 (3.5-5.1) g/dL Lipase 127 (23-300) U/L <Audra Perea MD - Last Filed: 03/14/25 22:52> Discharge Plan Discharge Clinical Impression: Heart palpitations, Premature ventricular contractions (PVCs) (VPCs) <WM Funes Last Filed: 03/14/25 18:44> Patient Disposition: Home <Chana Chavez PA-C - Last Filed: 03/14/25 18:44> Condition: Improved <WM Funes Last Filed: 03/14/25 18:44> Instructions: Antibiotic Form, Heart Palpitations (DC) <WM Funes Last Filed: 03/14/25 18:44> Additional Instructions: Please follow-up with your automotive window tinter within the next 3-5 days. Per the recommendation, you were started on metoprolol 25 XR mg daily. Return to the ED if any new or worsening symptoms develop. <Chana Chavez PA-C - Last Filed: 03/14/25 18:44> Patient Language: Greek <WM Funes Last Filed: 03/14/25 18:44> Prescriptions: New metoprolol succinate [Toprol XL] 25 mg tablet extended release 24 hr 25 mg PO DAILY Qty: 14 0RF No Action atorvastatin [Lipitor] 40 mg tablet 40 mg PO DAILY venlafaxine [Effexor XR] 150 mg capsule,extended release 24hr 300 mg PO DAILY hydrocodone-acetaminophen 10-325 mg tablet 1 tablet PO Q8H PRN (Reason: Pain) amlodipine [Norvasc] 10 mg tablet 10 mg PO DAILY topiramate [Topamax] 100 mg tablet 100 mg PO BID fenofibrate 160 mg tablet 160 mg PO DAILY pregabalin [Lyrica] 100 mg capsule 100 mg PO BID aspirin [Children's Aspirin] 81 mg Tablet,Chewable 81 mg PO DAILY@0800 Qty: 30 0RF Eliquis 5 mg Tablet 5 mg PO Q12HR Qty: 60 1RF amoxicillin-pot clavulanate 875-125 mg tablet 1 tablet PO Q12H Qty: 10 0RF doxycycline hyclate 100 mg capsule 100 mg PO BID Qty: 10 0RF cyclobenzaprine 10 mg Tablet 10 mg PO BID spironolactone 25 mg Tablet 25 mg PO DAILY hydrochlorothiazide 25 mg Tablet 25 mg PO DAILY hydroxyzine pamoate 25 mg Capsule 25 mg PO HS Trintellix 10 mg Tablet 10 mg PO DAILY lisinopril 40 mg tablet 40 mg PO DAILY Qty: 30 0RF acetaminophen 500 mg capsule 1,000 mg PO Q6H PRN (Reason: pain) Qty: 20 0RF dicyclomine 10 mg capsule 10 mg PO BID PRN (Reason: abdominal pain) Qty: 10 0RF <Chana Chavez PA-C - Last Filed: 03/14/25 18:44> Follow-up/Referrals: Nolvia,Butch Cross Jr., MD [Primary Care Provider, Unknown] - 3 Days <Chana Chavez PA-C - Last Filed: 03/14/25 18:44> Time of Disposition: 22:51 <Chana Chavez PA-C - Last Filed: 03/14/25 18:44> 22:51 <Audra Perea MD - Last Filed: 03/14/25 22:52>
[2025-03-14 19:00] LABS: Hematocrit 47.8 % (42.0-52.0); Hemoglobin 16.1 g/dL (14.0-18.0); Immature Granulocyte Percent A 0.2 % (0-0.5); Lymphocytes Absolute Auto 1.86 K/mm3 (0.9-3.2); Mean Corpuscular HGB Conc 33.7 g/dl (32-36); Mean Corpuscular Hemoglobin 28.4 pg (26-34); Mean Corpuscular Volume 84.3 fl (80-100); Nucleated Red Blood Cells Absolute Auto 0.000 K/mm3 (0.0-0.012); Nucleated Red Blood Cells Perc 0.0 % (0.0-0.2); Platelet Count Result 265 k/mm3 (150-375); Red Blood Count 5.67 M/mm3 (4.6-6.20); White Blood Count 8.0 K/mm3 (4.5-10.0)
[2025-03-14 19:10] LABS: INR 1.0; Prothrombin Time 13.2 Seconds (11.1-14.7)
[2025-03-14 19:11] LABS: Alanine Aminotransferase 104 U/L (6-50); Albumin Level 4.8 g/dL (3.5-5.1); Alkaline Phosphatase 124 U/L (38-126); Anion Gap 9 mmol/L (4-12); Aspartate Amino Transferase 66 U/L (17-59); Bilirubin,Total 0.9 mg/dL (0.2-1.3); Blood Urea Nitrogen 17 mg/dL (9-20); Calcium 9.0 mg/dL (8.4-10.2); Carbon Dioxide 28 mmol/L (22-30); Chloride 103 mmol/L (98-107); Estimated CRCL calculation 104 ml/min; Estimated Glomerular Filt Rate > 60; Glucose 100 mg/dL (65-110); Lipase 127 U/L (23-300); Magnesium 1.8 mg/dL (1.6-2.3); Partial Thromboplastin Time 28.7 Seconds (22.3-36.8); Potassium 3.9 mmol/L (3.4-5.0); Sodium 140 mmol/L (137-145); Total Protein 8.3 g/dL (6.3-8.2)
[2025-03-14 19:22] LABS: NT Pro B Type Natriuretic Pept 842 pg/mL (19.9-100); Troponin I < 0.012 ng/mL (0.000-0.034)
--- NOTE | 2025-03-14 19:30 | PC.NURSE ---
Pt. is on Eliquis. Aspirin not administered.
--- NOTE | 2025-03-14 19:38 | PC.NURSE ---
Dr. Perea notified of pt. htn. See MAR for intervention.
--- OUTSIDE RECORDS SUMMARY | 2025-03-14 20:17 | XMS_ITS | Clinical Summary ---
Author Organization [facility] Facility Address [address] [place] [address] Care Team Providers Care Office Machine Mechanic Name Role Phone Unavailable Primary Care Provider [...] Comments Blood Pressure 160/80 08/04/2023 10:04 AM WARDROBE STYLIST Pulse 86 08/04/2023 10:04 AM WARDROBE STYLIST Temperature 36.1 C (97 F) 08/04/2023 10:04 AM WARDROBE STYLIST Respiratory Rate 18 08/04/2023 10:04 AM WARDROBE STYLIST Oxygen Saturation 99% 08/04/2023 10:04 AM WARDROBE STYLIST Inhaled Oxygen Concentration - - Weight 149 kg (329 lb) 08/04/2023 10:04 AM WARDROBE STYLIST Height 190.5 cm (6' 3) 02/02/2022 10:07 [...] Comments HEMOGLOBIN A1C Routine 07/18/2023 8:45 AM WARDROBE STYLIST from Last 3 Months or Most Recently Relevant to Health Maintenance Results * Hemoglobin A1c (07/18/2023 8:45 AM WARDROBE STYLIST) Hemoglobin A1C 5.2 <5.7 % of total Hgb [facility] Comment: For the purpose of screening for the presence of diabetes: <5.7% Consistent with the absence of diabetes 5.7-6.4% Consistent with increased risk for diabetes (prediabetes) > or =6.5% Consistent with diabetes This assay result is consistent with a decreased risk of diabetes. Currently, no consensus exists regarding use of hemoglobin A1c for diagnosis of diabetes in children. According to [place] Diabetes Association (ADA) guidelines, hemoglobin A1c <7.0% represents optimal control in non- diabetic patients. Different metrics may apply to specific patient populations. Standards of Medical Care in Diabetes(ADA). HbA1c performed on [employer] App platform. 07/18/2023 8:45 AM WARDROBE STYLIST 07/18/2023 8:47 AM WARDROBE STYLIST Narrative [facility] - 07/19/2023 11:03 AM WARDROBE STYLIST FASTING:YES FASTING: YES Jez Haines DO LAB BLOOD ORDERABLES Final R esult [facility] [address] [place] [address] from Last 3 Months or Most Recently Relevant to Health Maintenance Insurance Medicare [facility]
--- OUTSIDE RECORDS SUMMARY | 2025-03-14 20:17 | XMS_ITS | Clinical Summary ---
Author Organization [facility] Address [address] [place] [address] Phone Care Team Providers Care Traffic Circuit Engineer Name Role Phone Nolvia Olivares MD, [...] times daily as needed. 0 Active omega 4-ryh-xai-fish oil 360-1,200 mg Capsule, Delayed Release(E.C.) Take [...] Comments Blood Pressure 102/59 07/13/2022 3:53 PM CUT OFF MAN Pulse 65 07/13/2022 3:51 PM CUT OFF MAN Temperature 36.6 C (97.8 F) 07/13/2022 3:51 PM CUT OFF MAN Respiratory Rate 18 07/13/2022 3:51 PM CUT OFF MAN Oxygen Saturation 98% 07/13/2022 3:51 PM CUT OFF MAN Inhaled Oxygen Concentration - - Weight 149.7 kg (330 lb) 05/10/2022 3:44 PM CUT OFF MAN Height 190.5 cm (6' 3) 05/10/2022 3:44 PM CUT OFF MAN Body Mass Index 41.25 05/10/2022 3:44 PM CUT OFF MAN Plan of Treatment Health Maintenance Due Date Last Done Comments Traditional Medicare (ACO) A nnual Wellness Visit 1977 COLORECTAL SCREENING 2003 Colorectal Cancer Screening 2003 [...] Comments HEMOGLOBIN A1C Stat 05/21/2020 4:21 PM CUT OFF MAN from Last 3 Months or Most Recently Relevant to Health Maintenance Results * HEMOGLOBIN A1C (05/21/2020 4:21 PM CUT OFF MAN) HEMOGLOBIN A1C 5.5 <=5.6 % 05/22/2020 3:04 AM CUT OFF MAN [facility] EST. AVG GLUCOSE, A1C 111 mg/dL 05/22/2020 3:04 AM CUT OFF MAN [facility] Blood Venipuncture / Unknown 05/21/2020 4:21 PM CUT OFF MAN 05/21/2020 4:29 PM CUT OFF MAN Narrative [facility] - 05/22/2020 3:04 AM CUT OFF MAN HGB A1C INTERPRETATION NORMAL: <5.7% PRE-DIABETES: 5.7 - 6.4% DIABETES: 6.5% OR GREATER us Albert Allred MD CHEMISTRY ORDERABLES Final Res ult [facility] [employer] [facility] CLIA# [id number] [place] [address] from Last 3 Months or Most Recently Relevant to Health Maintenance Insurance MEDICARE PART A AND B [employer] BLUE ACCESS/TRUE BLUE PPO Advance Directives For more information, please contact: [phone] * Full Code (Latest Code Status on File) Date Activated Date Inactivated Comments 07/11/2022 5:49 PM 07/13/2022 7:24 PM * Full Code Date Activated Date Inactivated Comments 03/30/2022 12:44 PM 03/30/2022 8:02 PM * Full Code Date Activated Date Inactivated Comments 05/22/2020 6:25 AM 05/23/2020 7:43 PM Care Teams Traffic Circuit Engineer Relationship Specialty Start Date End Date Butch De Souza Jr., MD [address] [place] [id number] PCP - General Internal Medicine 05/10/22
--- OUTSIDE RECORDS SUMMARY | 2025-03-14 20:17 | XMS_ITS | Encounter Summary ---
Author Organization [facility] Address [facility] [address] Phone Care Team Providers Care Mini Shifter Name Role Phone Unavailable Primary Care Provider Unavailabl e Reason for Visit * Reason Comments Med Refill Encounter Details Date Type Department Care Team (Late st Contact Info) Description 03/01/2024 Refill [employer] [facility], [address] [address] Jez Haines DO [address] [address] Social History Tobacco Use [...]
--- OUTSIDE RECORDS SUMMARY | 2025-03-14 20:18 | XMS_ITS | Encounter Summary ---
Author Organization [facility] Address [address] [place] [address] Phone Care Team Providers Care Cougar Hunter Name Role Phone Swathi Golden RN Unavailable Unavailab Heydi Razo MD Primary Care Provider Heydi Hood MD Primary Care Provider Nolvia Olivares MD, Butch Cross Primary Care Provide r Sheri Mac MD Unavailable Ysesica Worthy MD Unavailable Tonny Yoon MD Unavailable Cortney García RN Unavailable Ajay Downs MD Unavailable Grey Hand [...] on file Legal Sex Male 11:58 PM DIRECTOR OF LABOR AND DELIVERY Gender Identity Not on file Sexual Orientation Not on file documented as of this encounter Plan of Treatment Not on file documented as of this encounter Procedures Procedure Name Priority Date/Time Associated Diagnosis Comments SCAN - LABS 09/21/2018 documented in this encounter Results * SCAN - LABS (09/21/2018) us Provider Scanning Final Result documented in this encounter Visit Diagnoses Not on filedocumented in this encounter Additional Health Concerns Infection Onset Date Last Indicated Resolved Time COVID: Suspected 06/14/2021 06/14/2021 06/14/2021 7:24 PM DIRECTOR OF LABOR AND DELIVERY COVID: Suspected 01/16/2022 01/16/2022 01/16/2022 7:20 PM CDT COVID: Suspected 08/22/2022 08/22/2022 08/22/2022 9:42 AM DIRECTOR OF LABOR AND DELIVERY COVID: Suspected 08/04/2024 08/04/2024 08/04/2024 3:41 PM DIRECTOR OF LABOR AND DELIVERY COVID: Suspected 08/05/2024 08/05/2024 08/05/2024 1:23 PM DIRECTOR OF LABOR AND DELIVERY Rhino/Enterovirus 11/08/2024 11/08/2024 11/15/2024 3:05 AM CDT documented as of this encounter Care Teams Cougar Hunter Relationship Specialty Start Date End Date Heydi Hood MD [address] [address] PCP - General Family Medicine 03/03/21 06/13/21 Heydi Hood MD [address] [place] [address] PCP - General 06/14/21 06/16/21 Butch De Souza Jr., MD [address] [place] [address] PCP - General Internal Medicine 06/17/21 Swathi Golden RN Registered Nurse 04/15/19 01/18/23 Sheri Mac MD [address] [address] [place] [address] Endocrinology 06/17/21 12/09/24 Yessica Worthy MD [address] [facility] [address] [place] [address] Referring Physician Rheumatology 06/17/21 [place] [address] [place] [address] Consulting Physician Gastroenterology 06/17/21 Cortney García RN [address] [place] [address] [address] [place] [address] Chainman 11/09/23 05/30/24 [place] [address] [facility] [address] [place] [address] Consulting Physician Cardiovascular Disease 07/09/24 Grey Hand, LEBRON [address] [place] [address] [address] [place] [address] Chainman 08/12/24 [place] [address] [address] [facility] [address] [place] [address] Consulting Physician Pulmonary Disease 12/10/24 documented as of this encounter
--- OUTSIDE RECORDS SUMMARY | 2025-03-14 20:18 | XMS_ITS | Encounter Summary ---
Author Organization [facility] Address [address] [place] [address] Phone Care Team Providers Care Tight Barrel Inspector Name Role Phone Swathi Golden RN Unavailable Unavailab Heydi Razo MD Primary Care Provider Heydi Hood MD Primary Care Provider Nolvia Olivares MD, Butch Cross Primary Care Provide r Sheri Mac MD Unavailable Yessica Worthy MD Unavailable Tonny Yoon MD Unavailable Cortney García RN Unavailable Ajay Downs MD Unavailable [phone] Grey Hand RN Unavailable [phone] Kodi Griggs MD Unavailable Encounter Details Date [...] on file Legal Sex Male 11:58 PM SAMPLE WEAVER Gender Identity Not on file Sexual Orientation [...] COVID: Suspected 06/14/2021 06/14/2021 06/14/2021 7:24 PM SAMPLE WEAVER COVID: Suspected 01/16/2022 01/16/2022 01/16/2022 7:20 PM CDT COVID: Suspected 08/22/2022 08/22/2022 08/22/2022 9:42 AM SAMPLE WEAVER COVID: Suspected 08/04/2024 08/04/2024 08/04/2024 3:41 PM SAMPLE WEAVER COVID: Suspected 08/05/2024 08/05/2024 08/05/2024 1:23 PM SAMPLE WEAVER Rhino/Enterovirus 11/08/2024 11/08/2024 11/15/2024 3:05 AM CDT documented as of this encounter Care Teams Tight Barrel Inspector Relationship Specialty Start Date End Date Heydi Hood MD [address] [place] [address] PCP - General Family Medicine 03/03/21 06/13/21 Heydi Hood MD [address] [place] [address] PCP - General 06/14/21 06/16/21 Butch De Souza Jr., MD [address] [address] PCP - General Internal Medicine 06/17/21 Swathi Golden, RN Registered Nurse 04/15/19 01/18/23 Sheri Mac MD [address] [address] Endocrinology 06/17/21 12/09/24 Yessica Worthy MD [address] [facility] [address] [place] [address] Referring Physician Rheumatology 06/17/21 [place] [address] [place] [address] Consulting Physician Gastroenterology 06/17/21 Cortney García, LEBRON [address] [facility] [address] [place] [address] Odd Ticket Clerk 11/09/23 05/30/24 [place] [address] [facility] [address] [place] [address] Consulting Physician Cardiovascular Disease 07/09/24 Grey Hand, LEBRON [address] [place] [address] [facility] [address] [place] [address] Odd Ticket Clerk 08/12/24 [place] [address] [address] [facility] [address] [place] [address] Consulting Physician Pulmonary Disease 12/10/24 documented as of this encounter
--- OUTSIDE RECORDS SUMMARY | 2025-03-14 20:18 | XMS_ITS | Patient Health Record ---
Author Organization [facility] Address [address] [facility] [address] [place] [address] Care Team Providers Care Waste Cotton Cleaner Name Role Phone BOBBY STRATTON, [facility] Primary Care Provider Fadi Kaufman Unavailable [phone] ShakiraSally Unavailable [phone] Allergies Allergen (clinical drug ingredient) Drug/Non Drug [...] (BZO) Faint line 0 - 300 ng/ml 1-bqjdqtwtsh-7,1-wboxpeqt-5, 3-diphenylpyrrolidine (EDDP) N 0 - 300 ng/ml Methamphetamine (MET) N 0 - 1000 ng/ml Methylenedioxymethamphetamine (MDMA) N 0 - 500 ng/ml Morphine (MOP 300/QNC8755) N 0 - 300 ng/ml Methadone (MTD) N 0 - 300 ng/ml Phencyclidine (PCP) N 0 - 25 ng/ml Nortriptyline (TCA) N 0 - 1000 ng/ml Oxycodone N 0 - 300 ng/ml Reason For Referral No Information Medications Medication SIG (Take, Route, Frequency, Duration) Notes Start Date End Date Status Losartan Potassium 25 MG Tablet Oral; Duration: 30 Days Acti ve Isosorbide Mononitrate ER 60 MG Tablet Extended Release 24 Hour TAKE 1 TABLET BY MOUTH DAILY Oral; Duration: 30 Days Active Linzess 145 MCG Capsule Oral; Duration: 30 Days Active Potassium Chloride ER 10 MEQ Tablet Extended Release TAKE 1 TABLET BY MOUTH DAILY WITH BREAKFAST Oral; Duration: 30 Days Active dilTIAZem HCl ER Coated Beads 240 MG Capsule Extended Release 24 Hour TAKE ONE CAPSULE BY MOUTH EVERY DAY Oral; Duration: 30 Days Active hydrOXYzine HCl 50 MG Tablet 1 tablet Oral Once a day; Duration: 30 days Active oxyCODONE HCl 10 MG Tablet Oral 10/20/2023 Not-Taking QUEtiapine Fumarate 400 MG Tablet 1 tablet every night Oral Once a day; Duration: 90 days Active Magnesium Oxide -Mg Supplement 400 (240 Mg) MG Tablet TAKE 1 TABLET BY MOUTH EVERY DAY Oral; Duration: 30 Days Active DULoxetine HCl 60 MG Capsule Delayed Release Particles TAKE 1 CAPSULE BY MOUTH DAILY; Duration: 90 Active DULoxetine HCl 60 MG Capsule Delayed Release Particles 1 capsule Orally Once a day; Duration: 90 days Active Social History Tobacco Use: Social History Observation Description Date Details (start date - stop date) Never Smoker NA - NA Sex Assigned At : Social History Observation Description Sex Assigned At Male Social History Tobacco Use: Social Info Question Answer Notes Tobacco Control (Standard) Tobacco use: Nonsmoker Additional Details Category Social Info Options Details Migrated Social History Migrated Social History Alcohol Intake: None 02/24/2023,Tobacco Years: Never smoker 02/24/2023 Problems Problem Type SNOMED Code ICD Code Onset Dates Problem Status W/U Status Risk Notes Problem Generalized anxiety disorder (22729447) Generalized anxiety disorder (F41.1) Active confirmed Problem Primary insomnia (8400426) Primary insomnia (F51.01) Active confirmed Problem Chronic post-traumatic stress disorder (657625853) Chronic posttraumatic stress disorder (F43.12) Active confirmed Problem Generalized anxiety disorder (17338190) ROSA (generalized anxiety disorder) (F41.1) Active confirmed Problem Severe major depression with psychotic features (36964124) Depression, major, recurrent, 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) Active confirmed Problem Mixed hyperlipidemia (553129311) Mixed hyperlipidemia (E78.2) 05/25/20 21 Active confirmed Problem Hypertension (99237383) Hypertension (I10) 04/11/20 19 Active confirmed Problem Lumbar post-laminectomy syndrome (896370862) Lumbar post-laminectomy syndrome (M96.1) 01/22/20 24 Active confirmed Vital Signs Heart Rate 80 /min 11/22/2024 Height-cm 190.50 cm 11/22/2024 Blood pressure diastolic 85 mm Hg 11/22/2024 Weight-kg 159.12 kg 11/22/2024 Height 75.00 in 11/22/2024 Blood pressure systolic 138 mm Hg 11/22/2024 Weight 350.8 lbs 11/22/2024 BMI 43.84 kg/m2 11/22/2024 Encounters Encounter Location Date Provider Diagnosis [facility] [employer] [place] [address] [address] 03/14/2024 Fdai Vita Depression, major, recurrent, severe with psychosis F33.3 ; Generalized anxiety disorder F41.1 and Chronic posttraumatic stress disorder F43.12 [facility] [employer] [facility] [address] [address] 03/15/2024 Sally Shakira Major depressive disorder, recurrent severe without psychotic features F33.2 ; Generalized anxiety disorder F41.1 and Chronic posttraumatic stress disorder F43.12 [facility] [employer] [facility] [address] [facility] [address] [address] 03/25/2024 Fadi Vita Depression, major, recurrent, severe with psychosis F33.3 ; Generalized anxiety disorder F41.1 and Chronic posttraumatic stress disorder F43.12 [facility] [employer] [facility] [address] [facility] [address] [address] 04/04/2024 Sally Shakira Major depressive disorder, recurrent severe without psychotic features F33.2 ; Generalized anxiety disorder F41.1 and Chronic posttraumatic stress disorder F43.12 [facility] [employer] [place] [address] [facility] [address] [address] 04/15/2024 Sally Shakira Major depressive disorder, recurrent severe without psychotic features F33.2 ; Generalized anxiety disorder F41.1 and Chronic posttraumatic stress disorder F43.12 [facility] [employer] [address] [place] [address] 04/29/2024 Fadi Vita Depression, major, recurrent, severe with psychosis F33.3 ; Generalized anxiety disorder F41.1 and Chronic posttraumatic stress disorder F43.12 [facility], [place] [address] [address] 04/30/2024 Sally Shakira Major depressive disorder, recurrent severe without psychotic features F33.2 ; Generalized anxiety disorder F41.1 and Chronic posttraumatic stress disorder F43.12 [facility], [place] [address] [address] 05/27/2024 Fadi Vita Depression, major, recurrent, severe with psychosis F33.3 ; Generalized anxiety disorder F41.1 and Chronic posttraumatic stress disorder F43.12 [place] [address] [address] 06/03/2024 Sally Shakira Major depressive disorder, recurrent severe without psychotic features F33.2 ; Generalized anxiety disorder F41.1 and Chronic posttraumatic stress disorder F43.12 [place] [address] [address] 06/17/2024 Sally Shakira Generalized anxiety disorder F41.1 ; Depression, major, recurrent, severe with psychosis F33.3 and Chronic posttraumatic stress disorder F43.12 [facility], [place] [address] [address] 07/01/2024 Fadi Vita Depression, major, recurrent, severe with psychosis F33.3 ; Generalized anxiety disorder F41.1 ; Chronic posttraumatic stress disorder F43.12 and Primary insomnia F51.01 [place] [address] [address] 07/02/2024 Sally Shakira Depression, major, recurrent, severe with psychosis F33.3 ; Chronic posttraumatic stress disorder F43.12 and Generalized anxiety disorder F41.1 [place] [address] [address] 07/10/2024 Sally Shakira Depression, major, recurrent, severe with psychosis F33.3 ; Generalized anxiety disorder F41.1 and Chronic posttraumatic stress disorder F43.12 [facility], [place] [address] [address] 08/16/2024 Sallybucky Rosen[place] Depression, major, recurrent, severe with psychosis F33.3 ; Generalized anxiety disorder F41.1 and Chronic posttraumatic stress disorder F43.12 [facility] [address] [facility] [address] [place] [address] 08/19/2024 Fadi Vita Depression, major, recurrent, severe with psychosis F33.3 ; Generalized anxiety disorder F41.1 ; Chronic posttraumatic stress disorder F43.12 ; Primary insomnia F51.01 and ROSA (generalized anxiety disorder) F41.1 [facility] [address] [facility] [address] [place] [address] 08/30/2024 Sallybucky Rosenberg Depression, major, recurrent, severe with psychosis F33.3 ; Generalized anxiety disorder F41.1 and Chronic posttraumatic stress disorder F43.12 [facility] [address] [facility] [address] [place] [address] 09/19/2024 Sally Rosenberg Encounter for screen ing for depression Z13.31 ; Depression, major, recurrent, severe with psychosis F33.3 ; Chronic posttraumatic stress disorder F43.12 and Generalized anxiety disorder F41.1 [facility] [address] [address] 09/30/2024 Fadi Vita Depression, major, recurrent, severe with psychosis F33.3 ; Lumbar post-laminectomy syndrome M96.1 ; Hypertension I10 ; Mixed hyperlipidemia E78.2 ; Generalized anxiety disorder F41.1 ; Chronic posttraumatic stress disorder F43.12 ; Primary insomnia F51.01 ; ROSA (generalized anxiety disorder) F41.1 ; Encounter for screening for depression Z13.31 and Benign essential HTN I10 [facility] [address] [facility] [address] [place] [address] 10/03/2024 Sally Rosenberg Chronic posttraumati c stress disorder F43.12 ; Generalized anxiety disorder F41.1 and Depression, major, recurrent, severe with psychosis F33.3 [facility] [address] [facility] [address] [place] [address] 11/22/2024 Fadi Vita Chronic posttraumati c stress disorder F43.12 ; [...] lung J18.9 and Stable angina pectoris I20.89 [facility] [employer] [facility] [address] [place] [address] 12/04/2024 Sally Rosenberg Depression, major, recurrent, severe with psychosis F33.3 ; Generalized anxiety disorder F41.1 ; Chronic posttraumatic stress disorder F43.12 and Encounter for screening for depression Z13.31 [facility] [employer] [facility] [address] [place] [address] 02/12/2025 Fadi Gorman Generalized anxiety disorder F41.1 ; Depression, major, recurrent, severe with psychosis F33.3 and Chronic posttraumatic stress disorder F43.12 [facility] [employer] [facility] [address] [place] [address] 07/04/2024 Fadi Vita [facility] [employer] [facility] [address] [place] [address] 11/22/2024 Fadi Gorman Assessments Encounter Date Diagnosis (ICD Code) Assessment Notes Treatment Notes Treatment Clinical Notes Section Notes 03/14/2024 Depression, major, recurrent, severe with psychosis [...] discuss PVCs and their concerns with their corporate director talent assessment, Dr. Ajay Guaman, at [facility]. - Recommend the patient to [...] Assessment: Patient reports adopted brother lives in [place], causing increased anxiety. - Plan: - Advise [...] and severity of PVCs. - Refer to corporate director talent assessment if symptoms worsen or do not improve. [...] - Plan: - Send all prescriptions to [facility]. - Ensure patient is aware of [...] and severity of PVCs. - Refer to corporate director talent assessment if symptoms worsen or do not improve. [...] - Plan: - Send all prescriptions to [facility]. - Ensure patient is aware of [...] Assessment: Patient reports adopted brother lives in [place], causing increased anxiety. - Plan: - Advise [...] - Plan: - Continue ongoing therapy with rFancisca, the counselor, to address PTSD symptoms and [...] 03/15/2024 Generalized anxiety disorder (ICD-10 - F41.1) 03/14/2024 Generalized anxiety disorder (ICD-10 - F41.1) [...] discuss PVCs and their concerns with their corporate director talent assessment, Dr. Ajay Guaman, at [facility]. - Recommend the patient to consult with [...] Ajay Guaman regarding the patient's cardiac concerns. 03/14/2024 Chronic posttraumatic stress disorder (ICD-10 - [...] discuss PVCs and their concerns with their corporate director talent assessment, Dr. Ajay Guaman, at [facility]. - Recommend the patient to consult with [...] Guaman regarding the patient's cardiac concerns. 03/15/2024 Chronic posttraumatic stress disorder (ICD-10 - [...] Assessment: Patient reports adopted brother lives in [place], causing increased anxiety. - Plan: - Advise [...] and severity of PVCs. - Refer to corporate director talent assessment if symptoms worsen or do not improve. [...] - Plan: - Send all prescriptions to [facility]. - Ensure patient is aware of [...] and severity of PVCs. - Refer to corporate director talent assessment if symptoms worsen or do not improve. [...] - Plan: - Send all prescriptions to [facility] [place]. - Ensure patient is aware of any [...] Monitor cardiac symptoms. - Consider follow-up with corporate director talent assessment if symptoms persist. 09/30/2024 Encounter for screening for depression (ICD-10 - Z13.31) 09/30/2024 Benign essential HTN (ICD-10 - I10) 03/15/2024 Other Client reports he is still [...] he was in the ER just before Parveen. He reports having had a panic attack. He states it was affecting his heart (he staes, I was throwing PVC's. Client described several panic/trauma trigger inducing thoughts that often occur. Therapist actively listened to client and utilized a cognitive behavoral intervention to help client explore strategies to minimize panic and trauma triggering thoughts and the impact thay have on hismental health (STOP method, utilize [...] in to see a cardiiologist over at [facility]. He reports his home furnace quit working. He reports he has not had the energy to do much of anything. Therapist actively listened to client an dutilized a cognitive behavioral intervention to help client explore possible activities he can engage in to help pass the time while he is waiting to see the new corporate director talent assessment. PHQ=7 mild ROSA=13 moderate 08/19/2024 Other PTSD [...] new cardiac concerns. - Follow up with corporate director talent assessment as needed. Pain Management - Assessment: Patient [...] going on a 12 day cruise from [facility] to a port in [place]. Client focused on panic attacks and wants [...] ensure accuracy, there may be errors, including wing coverer inaccuracies and misspellings of medication names. This [...] A sleep study has been scheduled at [facility] to further evaluate sleep issues. Plan: - [...] ensure accuracy, there may be errors, including wing coverer inaccuracies and misspellings of medication names. This document should not be considered a verbatim record, and any discrepancies should be verified with the provider. Plan Of Treatment Next Appt Details Provider Name:Fadi Gorman , 05/14/2025 01:00:00 PM, [address], [place], [address], Insurance Providers Payer Name Payer Address Payer Phone Subscriber Number Group Number Insured Name Patient Relationship to Insured Coverage Start Date Coverage End Date Medicare-I l Medicare [address] [place] [address] [id number] LONDON MENENDEZ Self - [facility] is the insured [facility] [address] [place] [address] [id number] LONDON MENENDEZ Self - patient is the insured Medical (General) History Medical History History ICD Code Problems: Chronic post-traumatic stress disorder Generalized anxiety disorder Severe recurrent major depression withou t psychotic features , Surgical History Surgery Date(Month/Year) Any surgical history Removal of gallbladder (19705) Cataract surgery (76575) Other Tonsilectomy/adenoids
--- OUTSIDE RECORDS SUMMARY | 2025-03-14 20:18 | XMS_ITS | Encounter Summary ---
Author Organization [facility] Address [address] [place] [address] Phone Care Team Providers Care Learning Engineer Name Role Phone Nolvia Olivares MD, Butch Cross Primary Care Provide r Yessica Worthy MD Unavailable Tonny Yoon MD Unavailable Ajay Downs MD Unavailable Grey Hand RN Unavailable Kodi Griggs MD Unavailable [phone] Encounter Details Date Type Department Care Team (Late st Contact Info) Description 02/21/2025 Telephone [facility] Medicine Cardiology [address] [facility] Advanced Medicine 8th [place] [address] [place] [address] Estuardo Aquino MD [address] [facility] [address] [place] [address] Social History Tobacco Use Types Packs/Day Years Used Date Smoking Tobacco: Never Passive Smoke Exposure: Never Smokeless Tobacco: Never Alcohol Use Standard Drinks/Week Comments Never 0 (1 standard drink = 0.6 oz pur e alcohol) [facility] Utilities Answer Date Recorded In the past [...] often do you attend chur ch or orthodoxy services? Never 11/11/2024 Do you belong to any clubs o r organizations such as worship groups, unions, fraternal or athletic groups, or [...] place to sleep or slept in a senior living (including now)? No 11/18/2023 PHQ-9 Answer Date [...] any time in the [facility], were you homeless or living in a senior living (including now)? No 11/11/2024 AUDIT-C Answer Date Recorded Q1: How often do you have a drink containing alcohol? Never 02/25/2025 Q2: How many drinks containi ng alcohol do you have on a typical day when you are drinking? Patient does not drink Q3: How often do you have si x or more drinks on one occasion? Never 02/25/2025 Personal Safety Answer Date Recorded Have you ever been in or are you currently in a harmful physical or emotional relationship or is someone making you feel afraid or unsafe? Denies 02/25/2025 Sex and Gender Information Value Date Recorded Sex Assigned at Not on file Legal Sex Male 11:58 PM HEAD OF IT Gender Identity Not on file Sexual Orientation Not on file documented as of this encounter Miscellaneous Notes * Telephone Encounter - Bridgette Sprague RN - 02/21/2025 9:42 AM CDT I spoke with Mrs. Menendez. She was concerned about Mr. Menendez's cardiac MRI on Monday02/25/25. He has claustrophobia and has required anesthesia in the past. I spoke with the MRI department and Mr. Menendez's MRI is scheduled with anesthesia. He is to arrive at 0730. Mrs. Menendez is aware. * Telephone Encounter - Jillian Valle - 02/21/2025 9:09 AM CDT Miles Arzate call pt . Pt has procedure 03/04 and he has claustrophobia. documented in this encounter Plan of Treatment Not on file documented as of this encounter Goals Goal [...] and ensure they verbalize understanding of instructions. documented as of this encounter Visit Diagnoses Not on filedocumented in this encounter Care Teams Learning Engineer Relationship Specialty Start Date End Date Butch De Souza Jr., MD [facility] [address] [address] PCP - General Internal Medicine 06/17/21 Yessica Worthy MD [address] [place] [address] Referring Physician Rheumatology 06/17/21 [place] [address] [place] [address] Consulting Physician Gastroenterology 06/17/21 [place] [address] [address] [facility] [address] [place] [address] Consulting Physician Cardiovascular Disease 07/09/24 Grey Hand RN [address] [place] [address] [facility] [address] [place] [address] Motorboat Mechanic Inboard/Outboard 08/12/24 [place] [address] [place] [address] Consulting Physician Pulmonary Disease 12/10/24 documented as of this encounter
--- OUTSIDE RECORDS SUMMARY | 2025-03-14 20:18 | XMS_ITS | Clinical Summary ---
Author Organization [facility] Address [facility] [place] [address] Care Team Providers Care Errand Runner Name Role Phone Nolvia Olivares MD, Butch Sunday Primary Care Pro vider Allergies Active Allergy Reactions Criticality Noted Date Comments Aripiprazole Nausea and Vomiting,Nausea Only,Unknown Medium 06/04/2014 Other reaction(s): LOAN FUNDER Dysfunction Hydroxychloroquine Eyes Water & Itch,Other (see [...] Radiculopathy, lumbosacral region 05/06/2019 Paroxysmal atrial fibrillation ([facility]) 04/11/2019 Overview (10/27/2020): Last Assessment & Plan: [...] Comments Blood Pressure 169/82 07/10/2023 7:30 AM TECHNICAL SERVICE REP Pulse 71 07/10/2023 7:30 AM TECHNICAL SERVICE REP Temperature 36.6 C (97.8 F) 07/10/2023 4:16 AM TECHNICAL SERVICE REP Respiratory Rate 22 07/10/2023 7:30 AM TECHNICAL SERVICE REP Oxygen Saturation 95% 07/10/2023 7:30 AM TECHNICAL SERVICE REP Inhaled Oxygen Concentration - - Weight 140.6 kg (310 lb) 07/02/2023 6:06 PM TECHNICAL SERVICE REP Height 191.8 cm (6' 3.5) 07/02/2023 6:06 PM TECHNICAL SERVICE REP Body Mass Index 38.24 07/02/2023 6:06 PM TECHNICAL SERVICE REP Plan of Treatment Health Maintenance Due Date Last Done Comments Colorectal Cancer Screening Colonoscopy (10 Years) 1958 Hepatitis C 1976 Pneumococcal Vaccine: 50+ Years (1 of 1 - PCV) 2008 Zoster Vaccines (1 of 2) 2008 RSV Immunization or 60+ Years (1 - Risk 60-74 years 1-dose series) 2018 Annual Medicare Wellness Visit 2023 COVID-19 Vaccine (1 - 2023-2 5 season) 2025 DTaP, Tdap and Td Vaccines ( 3 [...] age to complete this topic Insurance MEDICARE [facility] Care Teams Errand Runner Relationship Specialty Start Date End Date Butch De Souza Jr., MD [address] [place] [id number] PCP - General HOSPITALIST 07/10/23
--- OUTSIDE RECORDS SUMMARY | 2025-03-14 20:18 | XMS_ITS | Clinical Summary ---
Author Organization [facility] [employer] Address [address] [place] [address] Care Team Providers Care Location Worker Name Role Phone Ajay Childs MD Unavailable [phone] Nolvia Olivares MD, Butch Sanches Primary Care Provider Source Comments [facility],non-owned Affiliates and Associated Physician Practices is amultiple site organization consisting of ambulatory clinics and hospital sitesin [place], [place], [place] and [place]. This disclosure is being madepursuant to the Care Everywhere program and may not contain all information available regarding this patient. Last updated 18.[facility] [employer] Allergies Active Allergy Reactions Criticality Noted Date Comments Aripiprazole ADVERTISING REP Dysfunction 10/17/2017 Zolpidem Other Low 07/10/2014 Delirium [...] loop recorder check 07/09/2019 Overview (07/09/2019): ANDREA [id number] Implanted 07/08/2019 Dr Muñiz PAF (paroxysmal atrial [...] and heating? Not hard at all 06/02/2023 [facility] - Occupational [...] place to sleep or slept in a retirement (including now)? 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 Gender Identity Not on file Sexual Orientation Not on file Last Filed Vital Signs Vital Sign Reading Time Taken Comments Blood Pressure 128/74 06/21/2023 5:27 PM SKOOG OPERATOR Pulse 74 06/21/2023 5:27 PM SKOOG OPERATOR Temperature 36.4 C (97.5 F) 06/21/2023 5:27 PM SKOOG OPERATOR Respiratory Rate 17 06/21/2023 5:27 PM SKOOG OPERATOR Oxygen Saturation 98% 06/21/2023 5:27 PM SKOOG OPERATOR Inhaled Oxygen Concentration - - Weight 141.3 kg (311 lb 9.6 oz) 06/02/2023 7:21 AM SKOOG OPERATOR Height 190.5 cm (6' 3) 06/02/2023 7:21 AM SKOOG OPERATOR Body Mass Index 38.95 06/02/2023 7:21 AM SKOOG OPERATOR Plan of Treatment Health Maintenance Due [...] 2008 ZOSTER VACCINE (1 of 2) 2008 DEPRESSION SCREENING 07/03/2024 MEDICARE AWV CALENDAR YEAR 2024 DTAP/TDAP/TD VACCINES (2 - Td or Tdap) 02/23/2025 02/23/2015 COVID-19 VACCINE (1 - season) 2025 INFLUENZA VACCINE (#1) 2025 0, 04/11/2019, 04/30/2018, Additional history exists SCREENING FOR DIABETES 06/02/2026 3, 03/14/2023, 02/21/2023, Additional history exists Respiratory Syncytial Virus (RSV) [...] this topic Medical Devices Implanted Type 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 Operator Molded Goods Device Identifier Shelf Expiration Date Model / Serial / Lot Graft Tissue Drgn + Bvn Clgn Mtrx 2x2in Implanted:Qty: 1 on 09/13/2018 by Jackson Norwood MD at [facility] [employer] 07/02/2021 [id number] / / [id number] Cmpnt Fem Kn Rt Cr Cmnt Prm Vngrd Intlk Implanted:Qty: 1 on 03/13/2023 by Miko Pérez MD at [facility] Right: Knee [employer] 12/13/2032 [id number] / / [id number] Cmnt Bone Plc R 40gm Grn Implanted:Qty: 1 on 03/13/2023 by Miko Pérez MD at [facility] Right: Knee [employer] 07/02/2025 [id number] / / [id number] Cmnt Bone Plc R 40gm Grn Implanted:Qty: 1 on 03/13/2023 by Miko Pérez MD at [facility] Right: Knee [employer] 07/02/2025 [id number] / / [id number] Tray Tib 83mm As Mx Kn Intlk Cocr 1 Pc Implanted:Qty: 1 on 03/13/2023 by Miko Pérez MD at [facility] Right: Knee [employer] 02/08/2032 [id number] / / [id number] Cmpnt Ptlr Std 37mm 3 Pg Kn Ser A Implanted:Qty: 1 on 03/13/2023 by Miko Pérez MD at [facility] Right: Knee [employer] 03/21/2027 [id number] / / [id number] Pancho Brng [id number] Vivacit-E Kn Ant Stab Implanted:Qty: 1 on 03/13/2023 by Miko Pérez MD at [facility] Right: Knee [employer] 05/17/2027 [id number] BILL ONLY / / [id number] Tray Tib 83mm As Mx Kn Intlk Cocr 1 Pc Implanted:Qty: 1 on 06/02/2023 by Miko Pérez MD at [facility] Left: Knee [employer] 11/08/2032 [id number] / / [id number] Cmpnt Fem Kn Lt Cr Cmnt Prm Vngrd Intlk Implanted:Qty: 1 on 06/02/2023 by Miko Pérez MD at [facility] Left: Knee [employer] 04/08/2033 [id number] / / [id number] Cmpnt Ptlr Std 34mm 3 Pg Kn Ser A Implanted:Qty: 1 on 06/02/2023 by Miko Pérez MD at [facility] Left: Knee [employer] 06/29/2027 [id number] / / [id number] Panch[employer] [id number] Vngrd Arcm Kn Ant Stab Implanted:Qty: 1 on 06/02/2023 by Miko Pérez MD at [facility] Left: Knee [employer] 11/19/2024 [id number] BILL ONLY / / [id number] Cmnt Bone Plc R 40gm Grn Implanted:Qty: 1 on 06/02/2023 by Miko Pérez MD at [facility] Left: Knee [employer] 08/30/2025 [id number] / / [id number] Cmnt Bone Plc R 40gm Grn Implanted:Qty: 1 on 06/02/2023 by Miko Pérez MD at [facility] Left: Knee [employer] 10/30/2025 [id number] / / [id number] Procedures Procedure Name Priority Date/Time Associated Diagnosis Comments BASIC METABOLIC PANEL (CALCIUM TOTAL) STAT 06/02/2023 7:31 AM SKOOG OPERATOR Preop examination from Last 3 Months or Most Recently Relevant to Health Maintenance Results * (ABNORMAL) BASIC METABOLIC PANEL (CALCIUM TOTAL) (06/02/2023 7:31 AM SKOOG OPERATOR) [facility] Glucose 86 70 - 105 mg/dL 06/02/2023 7:57 AM SKOOG OPERATOR [facility] Sodium 139 136 - 145 mmol/L 06/02/2023 7:57 AM [facility] Potassium 3.2(L) 3.5 - 5.1 mmol/L 06/02/2023 7:57 AM [facility] Chloride 110(H) 98 - 107 mmol/L 06/02/2023 7:57 AM [facility] CO2 20(L) 22 - 29 mmol/L 06/02/2023 7:57 AM [facility] Calcium 8.6 8.4 - 10.4 mg/dL 06/02/2023 7:57 AM [facility] Anion Gap 9 6 - 16 mmol/L 06/02/2023 7:57 AM [facility] BUN 18 7 - 26 mg/dL 06/02/2023 7:57 AM [facility] Creatinine 0.93 0.72 - 1.25 mg/dL 06/02/2023 7:57 AM [facility] eGFR by CKD-EPI >90 >=90 mL/min/1.7 3 m2 06/02/2023 7:57 AM [facility] Blood BLOOD SPECIMEN / Unknown Venipuncture / Unknown 06/02/2023 7:31 AM SKOOG OPERATOR 06/02/2023 7:42 AM [facility] Jeanie Valdovinos DO LAB - CHEMISTRY ORDERABLES Jyothi durant Result [facility] [address] [place] [address] from Last 3 Months or Most Recently Relevant to Health Maintenance [facility] [id number] [place] [id number] MEDICARE ANTHEM Advance Directives * Full Code [...] 11:27 PM 09/13/2018 11:27 PM Care Teams Location Worker Relationship Specialty Start Date End Date Butch De Souza Jr., MD [address] [place] [id number] PCP - General Internal Medicine 02/21/23 Ajay Childs MD [address] [place] [id number] Cardiovascular Disease 04/19/19
--- OUTSIDE RECORDS SUMMARY | 2025-03-14 20:18 | XMS_ITS | Encounter Summary ---
Author Organization [facility] Address [address] [place] [address] Phone Care Team Providers Care Trust Officer Name Role Phone Nolvia Olivares MD, Butch Cross Primary Care Provide r Yessica Worthy MD Unavailable [phone] Tonny Yoon MD Unavailable [phone] Ajay Downs MD Unavailable [phone] Grey Hand RN Unavailable [phone] Kodi Griggs MD Unavailable Encounter Details Date Type Department Care Team (Late st Contact Info) Description 03/14/2025 Telephone [facility] Medicine Infusion Therapy [address] [place] [address] Tsering Rivera, RN Social History Tobacco Use Types Packs/Day Years Used Date Smoking Tobacco: Never Passive Smoke Exposure: Never Smokeless Tobacco: Never Alcohol Use Standard Drinks/Week Comments Never 0 (1 standard drink = 0.6 oz pur e alcohol) [facility] Utilities Answer Date Recorded In the past 12 months has [employer], gas, oil, or water [employer] threatened to shut off services in your [...] often do you attend chur ch or druze services? Never 11/11/2024 Do you belong to any clubs o r organizations such as yarsanism groups, unions, fraternal or athletic groups, or [...] money to buy more. Never true 11/12/19 Within the past 12 months, t he [...] place to sleep or slept in a fdc (including now)? No 11/18/2023 PHQ-9 Answer Date [...] any time in the past 12 m onths, were you homeless or living in a fdc (including now)? No 11/11/2024 AUDIT-C Answer Date Recorded Q1: How often do you have a drink containing alcohol? Never 03/04/2025 Q2: How many drinks containi ng alcohol do you have on a typical day when you are drinking? Patient does not drink Q3: How often do you have si x or more drinks on one occasion? Never 03/04/2025 Personal Safety Answer Date Recorded Have you ever been in or are you currently in a harmful physical or emotional relationship or is someone making you feel afraid or unsafe? 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 Last infusion was in December and pt has not seen Dr. Worthy in over a year and has no follow up appt made. Dr. Worthy stated she would not order infusions as hehas not been seen in the office in over a year. Pt's called back and made aware. documented in this encounter Plan of Treatment [...] Care Management On track(2024 2:55 PM CDT) No Grey Hand RN Note: Problem: Medication non-adherence Interventions: - [...] on filedocumented in this encounter Care Teams Trust Officer Relationship Specialty Start Date End Date Butch De Souza Jr., MD [address] [place] [id number] PCP - General Internal Medicine 06/17/21 Yessica Worthy MD [address] [facility] [address] [place] [address] Referring Physician Rheumatology 06/17/21 [place] [address] [place] [address] Consulting Physician Gastroenterology 06/17/21 [place] [address] [address] [facility] [address] [place] [address] Consulting Physician Cardiovascular Disease 07/09/24 Grey Hand RN [address] [place] [address] [address] [place] [address] Public Address System Operator 08/12/24 [place] [address] [address] [place] [address] Consulting Physician Pulmonary Disease 12/10/24 documented as of this encounter
--- OUTSIDE RECORDS SUMMARY | 2025-03-14 20:18 | XMS_ITS | Clinical Summary ---
Author Organization 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 Role Phone Nolvia Olivares MD, Butch Cross Primary Care Provide r Yessica Worthy MD Unavailable Tonny Yoon MD Unavailable Ajay Downs MD Unavailable Grey Hand RN Unavailable Kodi Griggs MD Unavailable Allergies Active Allergy Reactions Criticality Noted Date Comments Aripiprazole Nausea Only Medium 06/04/2014 FINANCIAL REPRESENTATIVE Dysfunction Ethchlorvynol Unknown 10/20/2023 Hydrocodone Agitation Low 12/10/2024 Hydroxychloroquine Other (See comments) Low 018 damaged eye muscles Methotrexate Nausea Only,Other (See comments) Medium 06/04/2014 Liver enzymes elevated Sumatriptan Nausea Only,Other (See comments) Medium 06/04/2014 Heart attack symptoms Zolpidem Tartrate Nausea And Vomiting,Mental status changes,Hallucination s Medium 06/04/2014 Medications apixaban (ELIQUIS) 5 mg tabletIndicati ons:VTE Prophylaxis,PV C's Take 1 tablet (5 mg total) by mouth 2 (two) times a day 023 Active MAGNESIUM OXIDE ORALIndication s:hypomagnesem ia Take 2 tablets by mouth nightly Pt is out of med, waiting for insurance/pharmacy to refill Active hydrOXYzine (ATARAX) 50 mg tabletIndicati ons:anxiety Take 1 tablet (50 mg total) by mouth nightly Active isosorbide mononitrate ER (IMDUR) 60 mg 24 hr tabletIndicati ons:prevention of anginal pain in coronary artery disease Take 1 tablet (60 mg total) by mouth nightly Active albuterol HFA (PROVENTIL HFA,VENTOLIN HFA,PROAIR HFA) 90 mcg/actuation inhaler Inhale 2 puffs every 6 (six) hours as needed for wheezing 3 each 4 2024 Active nitroglycerin (NITROSTAT) 0.4 mg SL tabletIndicati ons:acute episode of anginal pain,acute myocardial infarction Place 1 tablet (0.4 mg total) under the tongue every 5 (five) minutes as needed for chest pain Active atorvastatin (LIPITOR) 40 mg tablet Take 1 tablet (40 mg total) by mouth daily 30 tablet 11 025 2025 Active Additional Information Patient taking differently:40 mg oralEvery morning, Indications: hyperlipidemia, Informant: Self, Reported on 03/04/2025 cloNIDine (CATAPRES) 0.1 mg tabletIndicati ons:hypertensi on Take 1 tablet (0.1 mg total) by mouth 3 (three) times a day as needed for high blood pressure Take 1 time for BP >170/90 Active atogepant (Qulipta) 60 mg tabletIndicati ons:Migraine Prevention Take 60 mg by mouth as needed (mir) Active diltiaZEM CD (CARDIZEM CD) 360 mg 24 hr capsuleIndicat ions:Paroxysma l atrial fibrillation (HCC),PVC's (premature ventricular contractions) Take 1 capsule (360 mg total) by mouth daily 30 capsule 025 Active Additional Information Patient taking differently:360 mg oralNightly, Indications: Paroxysmal Supraventricular Tachycardia, Informant: Self, Reported on 03/04/2025 fluticasone propionate (FLONASE) 50 mcg/actuation nasal sprayIndicatio ns:Allergic Rhinitis,did not bring bottle 12/10/24 Administer 1 spray into each nostril daily as needed for rhinitis or allergies Active polyethylene glycol (MIRALAX) 17 gram/dose bulk powderIndicati ons:constipati on Take 17 g by mouth nightly Active ciclopirox 1 % shampooIndicat ions:Dandruff Apply 1 Application topically 2 (two) times a week SHAMPOO SCALP 1-2 TIMES A WEEK. APPLY FOR 3-5 MINUTES THEN WASH OFF. Active ketoconazole (NIZORAL) 2 % creamIndicatio ns:rash/inflam mation Apply 1 Application topically 2 (two) times a day as needed for itching, irritation or rash Active losartan (COZAAR) 25 mg tabletIndicati ons:hypertensi on Take 1 tablet (25 mg total) by mouth nightly Active QUEtiapine (SEROquel) 300 mg tablet Take 1 tablet (300 mg total) by mouth nightly 30 tablet Active Additional Information Patient taking differently:300 mg oral Nightly,Indications: Depression Treatment Adjunct, Generalized Anxiety Disorder, Informant: Self, Reported on 03/04/2025 linaCLOtide (LINZESS) 145 mcg capsule Take 1 capsule (145 mcg total) by mouth daily 90 capsule 1 025 Active Additional Information Patient taking differently:145 mcg oralNightly, Indications: chronic idiopathic constipation, Informant: Self, Reported on 03/04/2025 potassium chloride ER 10 mEq CR tabletIndicati ons:pt states only takes with food otherwise can't not take Take 2 tablet/capsule (20 mEq total) by mouth daily with breakfast 180 tablet 1 025 Active Additional Information Patient taking differently:20 mEq oral Daily with breakfast,Indications: hypokalemia prevention, pt states only takes with food otherwise can't not take, Informant: Self, Reported on 03/04/2025 hydroCHLOROthi azide (HYDRODIURIL) 25 mg tabletIndicati ons:pt states is going to pharmacy today to start Take 1 tablet (25 mg total) by mouth daily 90 tablet 1 025 Active Additional Information Patient taking differently:25 mg oralNightly, Indications: hypertension, Informant: Self, Reported on 03/04/2025 cyclobenzaprin e (FLEXERIL) 10 mg tablet Take 1 tablet (10 mg total) by mouth 3 (three) times a day as needed for muscle spasms 90 tablet 1 025 Active Additional Information Patient taking differently:10 mg oral 3 times daily PRN, muscle spasms,Indications: Muscle Spasm, Informant: Self, Reported on 03/04/2025 senna-docusate (PERICOLACE) 8.6-50 mgIndications: constipation Take 1 tablet by mouth daily 30 tablet 025 Active metoprolol XL (TOPROL-XL) 50 mg extended release tabletIndicati ons:Paroxysmal atrial fibrillation (HCC),PVC's (premature ventricular contractions) TAKE 1 TABLET(50 MG) BY MOUTH TWICE DAILY 60 tablet 025 Active Additional Information Patient taking differently:50 mg oral 2 times daily,Indications: Ventricular Arrhythmias, hypertension, Informant: Self, Reported on 03/04/2025 aspirin 81 mg chewable tabletIndicati ons:prevention of thrombosis Take 1 tablet (81 mg total) by mouth every morning 024 Active clonazePAM (KlonoPIN) 0.5 mg tabletIndicati ons:anxiety Take 1 tablet (0.5 mg total) by mouth 2 (two) times a day as needed for anxiety Active suvorexant (Belsomra) 20 mg tabletIndicati ons:Insomnia Take 1 tablet (20 mg total) by mouth as needed (insomnia) [address] (CYMBALTA) 60 mg capsuleIndicat ions:Anxiety with Depression,PTS D Take 1 capsule (60 mg total) by mouth nightly 025 Active cyanocobalamin , vitamin B-12, (VITAMIN B-12 ORAL)Indicatio ns:supplement Take 2 tablets by mouth every morning Active chlorthalidone (HYGROTON) 25 mg tabletIndicati ons:hypertensi on Take 1 tablet (25 mg total) by mouth every morning Active famotidine (PEPCID) 20 mg tabletIndicati ons:Dyspepsia Prevention,Hea rtburn Prevention Take 1 tablet (20 mg total) by mouth 2 (two) times a day Active mirtazapine (REMERON) 30 mg tabletIndicati ons:Post Traumatic Stress Disorder Take 1 tablet (30 mg total) by mouth nightly as needed (PTSD) Active rimegepant (Nurtec ODT) tablet,disinte gratingIndicat ions:Migraine, Migraine Prevention Take 1 tablet (75 mg total) by mouth as needed (migraines) Active DULoxetine DR (CYMBALTA) 30 mg capsule Take 1 capsule (30 mg total) by mouth daily 024 2024 Discontinued(A lternate therapy) cyanocobalamin (Vitamin B-12) 1,000 mcg sublingual tablet Take 2 tablets (2,000 mcg total) by mouth daily 2024 Discontinued(A lternate therapy) traMADoL (ULTRAM) 50 mg tablet Take 1 tablet (50 mg total) by mouth every 8 (eight) hours as needed for pain 60 tablet 025 2024 Discontinued cephalexin (KEFLEX) 250 mg capsuleIndicat ions:Wound infection after surgery TAKE 2 CAPSULES(500 MG) BY MOUTH TWICE DAILY FOR 10 DAYS 40 capsule 025 2024 Discontinued(T herapy completed) Active Problems Problem Noted Date Diagnosed Date CAD (coronary artery disease) 03/04/2025 Assessment & Plan (03/05/2025 9:22 AM CDT): -cont ASA, statin Assessment & Plan (03/04/2025 6:22 PM CDT): -cont ASA, statin Shortness of breath 11/08/2024 Lumbar radiculopathy 10/31/2024 Spinal stenosis of lumbar region 10/31/2024 Assessment & Plan (03/05/2025 9:22 AM CDT): -cont cymbalta, prn flexeril Assessment & Plan (03/04/2025 6:22 PM CDT): -cont cymbalta, prn flexeril Lumbar disc herniation 10/31/2024 Severe major depression with psychotic features 10/23/2024 Assessment & Plan (03/05/2025 9:22 AM CDT): -cont seroquel, cymbalta Assessment & Plan (03/04/2025 6:22 PM CDT): -cont seroquel, cymbalta Assessment & Plan (10/23/2024 2:10 PM CDT): Chronic stable Well controlled Continue current prescribed medications cymbalta and seroquel at current dose PVC (premature ventricular contraction) 10/17/19 Assessment & Plan (03/05/2025 9:22 AM CDT): -s/p successful PVC ablation 03/04 w/ Dr. Miles JARVIS groin sites w/o swelling/bleeding -resumed home eliquis, metop, dilt -SR on tele -EP evaluated this am-outpatient follow up scheduled 04/01 -Activity restrictions were reviewed with the patient and provided in written form at discharge Assessment & Plan (03/04/2025 6:22 PM CDT): -s/p PVC ablation 03/04 w/ Dr. Miles JARVIS groin sites w/o swelling/bleeding -resume home eliquis, metop, dilt -monitor on tele -EP eval in AM Assessment & Plan (10/23/2024 2:08 PM CDT): Sympomatic Main drivers of his conditions overall-ablation is being considered NSVT (nonsustained ventricular tachycardia) 10/01 Chronic stable angina 07/11/2024 Assessment & Plan (10/23/2024 2:08 PM CDT): Continue to take Ranexa/imdur Follows with cardiology Assessment & Plan (08/19/2024 6:36 AM TECHNICAL SUPPORT INTER[employer]HIP): Continue to take Ranexa/imdur Follows with cardiology Assessment & Plan (07/11/2024 1:43 PM TECHNICAL SUPPORT INTERNSHIP): Continue to take Ranexa/imdur Follows with cardiology Lumbar post-laminectomy syndrome 01/22/2024 Spinal stenosis of lumbar re gion with neurogenic claudication 01/08/2024 Assessment & Plan (10/23/2024 2:08 PM CDT): Will continue to follow up with NSY Continue roxicodone prn Assessment & Plan (08/19/2024 6:36 AM TECHNICAL SUPPORT INTERNSHIP): Seeing NSY, however several things continue to [...] and establishing or updating healthcare power of ip technology transactions attorney document and providing our office with [...] and establishing or updating healthcare power of ip technology transactions attorney document and providing our office with [...] and establishing or updating healthcare power of ip technology transactions attorney document and providing our office with a copy. PTSD (post-traumatic stress disorder) 08/22/2022 Assessment & Plan (08/19/2024 6:36 AM TECHNICAL SUPPORT INTERNSHIP): Continue medications as prescribed, cymbalta seroquel Assessment [...] specialists Assessment & Plan (06/22/2023 7:07 PM TECHNICAL SUPPORT INTERNSHIP): His improved sense of well-being following the [...] fibrosis. Assessment & Plan (06/09/2022 4:31 PM TECHNICAL SUPPORT INTERNSHIP): Assessment & Plan (09/16/2021 11:09 AM CDT): Monitor LFTs Cervical spinal stenosis 05/21/2020 Assessment & Plan (10/23/2024 2:12 PM CDT): Following NSY Takes roxicodone Assessment & Plan (07/11/2024 1:43 PM TECHNICAL SUPPORT INTERNSHIP): Seeing PEE, surgery latter this month Spondylosis of cervical joint without myelopathy 05/21/2020 Prediabetes 04/18/2019 Assessment & Plan (09/16/2021 11:06 AM CDT): Continue ozempic, increase dosage Assessment & Plan (07/16/2021 10:52 AM TECHNICAL SUPPORT INTERNSHIP): Continue taking ozempic as prescribed by endocrinology [...] dose Assessment & Plan (06/17/2021 8:03 AM TECHNICAL SUPPORT INTERNSHIP): Continue stsatin Assessment & Plan (05/14/2020 4:21 PM TECHNICAL SUPPORT INTERNSHIP): Low fat low chol diet Continue statin, [...] diet discussed. Daily aerobic exercise Add Lovaza. HTN (hypertension) 12/04/2017 Assessment & Plan (03/05/2025 9:22 AM CDT): -cont losartan, imdur, metop Assessment & Plan (03/04/2025 6:22 PM CDT): -cont losartan, imdur, metop Assessment & Plan (10/23/2024 2:11 PM CDT): Has difficulty controlling this at times Continue HCTZ, metoprolol, Ranexa Assessment & Plan (07/11/2024 1:42 PM TECHNICAL SUPPORT INTERNSHIP): Has difficulty controlling this at times Continue HCTZ, metoprolol, Ranexa Assessment & Plan (05/24/2024 10:07 AM TECHNICAL SUPPORT INTERNSHIP): Ongoing. Do not use OTC medications with [...] Continue Amlodipine and Sotalol. Rheumatoid arthritis of [facility] sites with negative rheumatoid factor 12/04/2017 Assessment & Plan (10/23/2024 2:05 PM CDT): Continue leflunomide Assessment & Plan (08/19/2024 6:35 AM TECHNICAL SUPPORT INTERNSHIP): Continue leflunomide Assessment & Plan (07/11/2024 1:42 PM TECHNICAL SUPPORT INTERNSHIP): Continue leflunomide Assessment & Plan (10/23/2023 1:22 PM CDT): Continue leflunomide Assessment & Plan (10/20/2022 1:29 PM CDT): Chronic stable Well controlled Continue current prescribed medications at current dose Assessment & Plan (08/16/2022 10:10 AM TECHNICAL SUPPORT INTERNSHIP): Continue follow-up with rheum and pain management Assessment & Plan (06/17/2021 9:04 AM TECHNICAL SUPPORT INTERNSHIP): Holding off on medications because the class of drugs he may require have been showing to lower peoples protection again COVID Will continue to follow-up with Rheum Assessment & Plan (12/04/2017 1:20 PM CDT): Plans to initiate Rituximab Therapy (Rheumatology to write orders including pre-medications). Conitnue Arava Paroxysmal atrial fibrillation 12/04/2017 Assessment & Plan (03/05/2025 9:22 AM CDT): -cont Eliquis, metop, diltiazem, continue Assessment & Plan (03/04/2025 6:22 PM CDT): -cont Eliquis, metop, diltiazem Assessment & Plan (10/23/2024 2:06 PM CDT): Seeing cardiology Given one month supplies of medications, will send in 90 days to mail service tomorrow Assessment & Plan (08/19/2024 6:35 AM TECHNICAL SUPPORT INTERNSHIP): Chronic stable Well controlled Continue current prescribed medications metoprolol and diltiazem at current dose Assessment & Plan (07/11/2024 1:45 PM TECHNICAL SUPPORT INTERNSHIP): Chronic stable Well controlled Continue current prescribed medications metoprolol and diltiazem at current dose Assessment & Plan (04/25/2024 3:27 PM CDT): Chronic stable Well controlled Continue current prescribed medications metoprolol and diltiazem at current dose Assessment & Plan (02/02/2024 10:14 AM CDT): Intermittent. Currently under evaluation by Cardiology. Patient advised to notify market stall vendor a recent ED visit and schedule follow-up [...] dose Assessment & Plan (06/17/2021 8:17 AM TECHNICAL SUPPORT INTERNSHIP): S/p abalation Has not had issues with this since then Loop recorder is in, getting it taken out soon Assessment & Plan (12/04/2017 1:26 PM CDT): Continue Sotalol and Warfarin. Monitor INR Morbid obesity with BMI of 40.0-44.9, adult 09/01 Overview (11/25/2016): BMI 40.0-44.9, adult Assessment & Plan (03/05/2025 9:22 AM CDT): Would benefit from outpatient weight loss. Assessment & Plan (03/04/2025 6:22 PM CDT): Would benefit from outpatient weight loss. Assessment & Plan (10/23/2024 2:08 PM CDT): Weight is stable Monitor Related to his seroquel Assessment & Plan (08/19/2024 6:35 AM TECHNICAL SUPPORT INTERNSHIP): Weight is stable Monitor Related to his seroquel Assessment & Plan (07/11/2024 1:45 PM TECHNICAL SUPPORT INTERNSHIP): Weight is stable Monitor Related to his seroquel Assessment & Plan (05/24/2024 10:08 AM TECHNICAL SUPPORT INTERNSHIP): Work on attempts to lose weight about [...] 6-8 8oz glasses of water daily. LJ Assessment & Plan (03/05/2025 9:22 AM CDT): -not on CPAP (had outpt testing last week) Assessment & Plan (03/04/2025 6:22 PM CDT): -not on CPAP Assessment & Plan (10/23/2024 2:05 PM CDT): 10 years ago was dx, his CPAP got recalled never able to get it back Was told perhaps he could get inspire Assessment & Plan (07/11/2024 1:25 PM TECHNICAL SUPPORT INTERNSHIP): 10 years ago was dx, his CPAP got recalled never able to get it back Was told perhaps he could get inspire Resolved Problems Problem Noted Date Diagnosed Date Resolved Date NSVT (nonsustained ventricular tachycardia) 10/16/2024 10/23/2024 Dizziness 07/31/2024 08/16/2024 NSVT (nonsustained ventricular tachycardia) 07/30/2024 08/16/2024 Ascending aortic aneurysm, u nspecified whether ruptured 07/11/2024 07/11/2024 Assessment & Plan (07/11/2024 1:44 PM TECHNICAL SUPPORT INTERNSHIP): Continue medications as prescribed stable Class 3 [...] 10/23/2023 Assessment & Plan (09/05/2022 10:19 AM TECHNICAL SUPPORT [employer]HIP): No longer having chest pain Feels like this is improved Is following up with cardiology Atypical chest pain 08/22/2022 10/21/19 23 Hypertensive urgency 08/22/2022 023 Inability to sleep 08/22/2022 Assessment & Plan (09/05/2022 10:17 AM TECHNICAL SUPPORT [employer]HIP): Having issues with sleep Has issues with [...] 6 weeks with AP/Flexion/Extension Lumbar spine films. Preventative health care 09/16/2021 Assessment & Plan (09/16/2021 11:10 [...] 3 Assessment & Plan (06/17/2021 9:04 AM TECHNICAL SUPPORT INTERNSHIP): Will monitor Hgba1c and sugar levels Assessment & Plan (05/14/2020 4:20 PM TECHNICAL SUPPORT [employer]HIP): Diet and exercise Check hba1c Assessment & [...] HLD Assessment & Plan (09/05/2022 10:16 AM TECHNICAL SUPPORT [employer]HIP): Monitor BMI Assessment & Plan (08/16/2022 10:09 AM TECHNICAL SUPPORT [employer]HIP): Monitor weight Has HTN, HLD, ZAMORA Assessment & Plan (09/16/2021 11:07 AM CDT): Working on weight loss Will increase ozempic Assessment & Plan (07/16/2021 10:53 AM TECHNICAL SUPPORT [employer]HIP): Continue to monitor weight Assessment & Plan (06/17/2021 9:10 AM TECHNICAL SUPPORT [employer]): Will try wegovy, should help with weight [...] days of the week recommended. Hypertriglyceridemia 12/26/2017 03/17/2 022 Assessment & Plan (12/10/2020 4:05 PM [...] Encounters Date Type Department Care Team Description 03/14/2025 Telephone [facility] Medicine Infusion Therapy [address] [place] [address] Tsering Rivera RN 03/14/2025 Nurse Triage [facility] Medical [facility] Primary Care [address] [place] [phone] Butch De Souza Jr., MD 03/10/2025 Telephone [facility] Primary Care [address] [place] [address] [address] [place] [phone] Butch De Souza Jr., MD Medication Request 03/04/2025 7:33 AM CDT Anesthesia Event [facility] Electrophysiology Lab [address] [place] [address] Tatiana Tillman MD Montgomery, Andrea J., NP 03/04/2025 7:30 AM CDT - 03/04/2025 3:50 PM CDT Surgery [facility] Electrophysiology Lab [address] [place] [address] MikEstuardo bailey MD ABLATION VENTRICULAR TACHYCARDIA (VT) INCLUDES 3D MAPPING (WHEN USED) [id number] 03/04/2025 6:14 AM CDT - 03/05/2025 10:13 AM CDT Hospital Encounter [address] [phone] Estuardo Aquino MD Neilson, Nathan Andrew, MD NSVT (nonsustained ventricular tachycardia) (HCC); PVC (premature ventricular contraction) Discharge Disposition: Discharge to home or self care 02/28/2025 9:30 AM CDT Pre-Admission Testing [facility] for Preoperative Assessment and Planning [facility] [address] [place] [phone] Preoperative testing (Primary Dx); NSVT (nonsustained ventricular tachycardia) (HCC); PVC (premature ventricular contraction) 02/25/2025 9:47 AM CDT Anesthesia Event [facility] Radiology [address] [place] [address] Basia Tracey MD 02/25/2025 7:12 AM CDT - 02/25/2025 11:59 PM CDT Hospital Encounter [facility] Radiology [address] [place] [address] Basia Tracey MD Reynolds, Troy Wayne, CRNA NSVT (nonsustained ventricular tachycardia) (HCC) Discharge Disposition: Discharge to home or self care 02/21/2025 Telephone [facility] Medicine Cardiology [address] [place] [address] Advanced Medicine 8th [place] [address] [place] [address] Estuardo Aquino MD 02/14/2025 Orders Only [facility] Information Management [address] [place] [phone] Scanning, Provider 02/12/2025 7:00 PM CDT - 02/12/2025 11:59 PM CDT Hospital Encounter [facility] [address] [place] [phone] Obstructive sleep apnea syndrome Discharge Disposition: Discharge to home or self care 02/10/2025 11:30 AM CDT Office Visit [facility] Neurosurgery [facility] [address] [facility] [address] [place] [phone] Benjamin Fairbanks MD S/P lumbar spine operation (Primary Dx) 02/10/2025 CECILIO IP Outreach [facility] Accountable Care Organization [address] [place] [phone] Mona Green MA 01/30/2025 10:30 AM CDT Office Visit [facility] [address] [facility] [address] [place] [phone] Genesis Aguirre MD Hypersomnia with sleep apnea (Primary Dx); Obstructive sleep apnea syndrome; Morbid obesity with BMI of 40.0-44.9, adult (HCC) 01/15/2025 2:30 PM CDT Office Visit [facility] Neurosurgery Clinic [facility] [address], [address] [place] [phone] Benjamin Fairbanks MD Wound infection after surgery (Primary Dx); S/P lumbar spine operation 12/25/2024 Telephone [facility] Primary Care [address] [place] [address] [place] [phone] Butch De Souza Jr., MD Medical Question/Miscellane ous 12/24/2024 7:30 AM CDT - 12/24/2024 9:30 AM CDT Surgery [facility] [place] [address] [place] [phone] Benjamin Fairbanks MD LEFT SIDED LUMBAR 1 TO LUMBAR 2 MINIMALLY INVASIVE DECOMPRESSION AND DISCECTOMY 12/24/2024 7:25 AM CDT Anesthesia Event [facility] [place] [address] [place] [phone] Brigette Guthrie MD Kuntz, Edward William, MD 12/24/2024 5:17 AM CDT - 12/24/2024 2:05 PM CDT Hospital Encounter [facility] [place] [address] [place] [phone] Benjamin Fairbanks MD Lumbar radiculopathy; Spinal stenosis of lumbar region, unspecified whether neurogenic claudication present; Lumbar disc herniation; Rheumatoid arthritis of multiple sites with negative rheumatoid factor (HCC); Lumbar post-laminectomy syndrome Discharge Disposition: Discharge to home or self care 12/12/2024 Telephone [facility] Primary Care [address] [place] [phone] Butch De Souza Jr., MD Medical Question/Miscellane ous from Last 3 Months Immunizations Immunization Administration [...] SKIN CANCER EXCISION Left near left eye CARDIAC ELECTROPHYSIOLOGY PROCEDURE 03/04/2025 N/A Procedure: ABLATION VENTRICULAR TACHYCARDIA (VT) INCLUDES 3D MAPPING (WHEN USED) [id number]; Surgeon: Estuardo Aquino MD; Location: [facility] EP LAB; Service: Cardiovascular; Laterality: N/A; Medical devices from this surgery are in the Medical Devices section. CARDIAC ELECTROPHYSIOLOGY PROCEDURE 03/04/2025 N/A Procedure: LEFT HEART CATHETERIZATION TRANSEPTAL PUNCTURE (+) [id number]; Surgeon: Estuardo Aquino MD; Location: [facility] EP LAB; Service: Cardiovascular; Laterality: N/A; Medical devices from this surgery are in the Medical Devices section. Medical History Medical History Date Comments Hypertension [...] eye Adopted Lumbar radiculopathy Rheumatoid arthritis (HCC) CAD (coronary artery disease) 03/04/2025 Family History * Patient is adopted Medical History Relation Name Comments Seizures Brother [...] drink = 0.6 oz pur e alcohol) [facility] Utilities Answer Date Recorded In the [...] often do you attend chur ch or hinduism services? Never 11/11/2024 Do you belong to any clubs o r organizations such as presybeterian groups, unions, fraternal or athletic groups, or [...] any time in the past [address] [facility], were you homeless or living in [...] on file Legal Sex Male 11:58 PM [employer] Gender Identity Not on file Sexual Orientation Not on file Obstetrics History Last Filed Vital Signs Vital Sign Reading Time Taken Comments Blood Pressure 176/101 03/05/2025 8:48 AM CDT Pulse 61 03/05/2025 8:48 AM CDT Temperature 36.4 C (97.5 F) 03/05/2025 8:48 AM CDT Respiratory Rate 16 03/05/2025 8:48 AM CDT Oxygen Saturation 100% 03/05/2025 8:48 AM CDT Inhaled Oxygen Concentration - - Weight 163.7 kg (360 lb 14.3 oz) 03/05/2025 6:00 AM CDT Height 190.5 cm (6' 3) 03/04/2025 6:55 AM CDT Body Mass Index 45.11 03/04/2025 6:55 AM CDT Plan of Treatment Health Maintenance Due Date Last Done Comments Influenza Vaccine (#1) 2025 , 05/15/2020, 04/11/2019, Additional history exists Well Visit 65+ 10/23/2025 10/23/2024, 10/02, 10/20/2022, Additional history exists Zoster Vaccine (1 of 2) 10/23/2025 Post poned from 2008 (Insurance / Financial) Depression Screening 11/19/2025 11/19/2024, 11/08/2024, 11/08/2024, Additional history exists Fall Risk Assessment 03/05/2026 03/05/2025, 10/23/2024, 10/23/2023, Additional history exists Prostate Cancer [...] Management On track(2024 2:55 PM CDT) Grey Gomez RN Note: Problem: Medication non-adherence Interventions: - Address any barriers to taking medications as ordered. Coordinate with appropriate personnel (SW, physician, pharmacist, etc.) to help increase compliance with medication regimen. - Review with patient/caregiver the medication schedule in detail. - Review when to call their physician for potential medication complications and ensure they verbalize understanding of instructions. Medical Devices Implanted Type Area Black Oxide Operator Device Identifier Shelf Expiration Date Model / Serial / Lot [employer] Vascade Mvp 6-12fr Venous Closure [id number] - [id number] - [id number] Implanted:Qty: 1 on 03/04/2025 by Genaro Joseph MD at [facility] Collagen Left: Femoral Vein [employer] 11/25/2026 800-612 C-10U / [id number] / [id number] [employer] Vascade Mvp 6-12fr Venous Closure [id number] - [id number] - [id number] Implanted:Qty: 1 on 03/04/2025 by Genaro Joseph MD at [facility] Collagen Left: Femoral Vein [employer] 11/25/2026 800-612 C-10U / [id number] / [id number] [employer] Vascade Mvp 6-12fr Venous Closure [id number] - [id number] - [id number] Implanted:Qty: 1 on 03/04/2025 by Genaro Joseph MD at [facility] Collagen Left: Femoral Vein [employer] 11/25/2026 800-612 C-10U / [id number] / [id number] [employer] Vascade Mvp 6-12fr Venous Closure [id number] - [id number] - [id number] Implanted:Qty: 1 on 03/04/2025 by Genaro Joseph MD at [facility] Collagen Left: Femoral Vein [employer] 11/25/2026 800-612 C-10U / [id number] / [id number] Implantable Loop Recorder Implantable Loop Recorder Chest Wall Loop Recorder Chest Wall Parent[employer] [id number] / [id number] / Description:[email or web address] ^ MRI safety information Lumbar Spine Fusion Instrumentation Spine Lumbar Shoulder Components Right: Shoulder Knee Components Bilateral: Knee Procedures Procedure Name Priority Date/Time Associated Diagnosis Comments POCT ACTIVATED CLOTTING TIME, HIGH RANGE Routine 03/04/2025 1:27 PM CDT LEFT HEART CATHETERIZATION TRANSEPTAL PUNCTURE Routine 03/04/2025 1:15 PM CDT NSVT (nonsustained ventricular tachycardia) (HCC) PVC (premature ventricular contraction) ABLATION VT Routine 03/04/2025 1:15 PM CDT NSVT (nonsustained ventricular tachycardia) (HCC) PVC (premature ventricular contraction) POCT ACTIVATED CLOTTING TIME, HIGH RANGE Routine 03/04/2025 9:39 AM CDT POCT ACTIVATED CLOTTING TIME, HIGH RANGE Routine 03/04/2025 9:09 AM CDT POCT ACTIVATED CLOTTING TIME, HIGH RANGE Routine 03/04/2025 8:58 AM CDT POCT ACTIVATED CLOTTING TIME, HIGH RANGE Routine 03/04/2025 8:49 AM CDT ECG 12-LEAD Routine 03/04/2025 7:16 AM CDT URINALYSIS AND REFLEX TO MICROSCOPIC Routine 02/28/2025 9:25 AM CDT NSVT (nonsustained ventricular tachycardia) (HCC) PVC (premature ventricular contraction) EGFR Routine 02/28/2025 9:23 AM CDT NSVT (nonsustained ventricular tachycardia) (HCC) PVC (premature ventricular contraction) CBC WITHOUT DIFFERENTIAL Routine 02/28/2025 9:23 AM CDT NSVT (nonsustained ventricular tachycardia) (HCC) PVC (premature ventricular contraction) BASIC METABOLIC PANEL Routine 02/28/2025 9:23 AM CDT NSVT (nonsustained ventricular tachycardia) (HCC) PVC (premature ventricular contraction) ECG 12-LEAD Routine 02/28/2025 8:29 AM CDT Preoperative testing MRI CARDIAC M&FUNC W WO CONTRAST Schedule Routine, Read Routine (OP Routine) 02/25/2025 11:43 AM CDT NSVT (nonsustained ventricular tachycardia) (HCC) [place] AN PROCEDURE PLACEHOLDER Routine 02/25/2025 11:01 AM CDT NY AN ELECTIVE ENDOTRACHEAL AIRWAY Routine 02/25/2025 11:01 AM CDT SCAN - RADIOLOGY/IMAGING 02/14/2025 PSG (COMPLEX) Routine 02/13/2025 7:58 AM CDT Obstructive sleep apnea syndrome FL FLUOROSCOPY < 1 HOUR IP Routine 12/24/2024 8:42 AM CDT NY AN PROCEDURE PLACEHOLDER Routine 12/24/2024 8:00 AM CDT NY AN ELECTIVE ENDOTRACHEAL AIRWAY Routine 12/24/2024 8:00 AM CDT DECOMPRESSION LUMBAR LAMINECTOMY 12/24/2024 7:25 AM CDT Lumbar radiculopathy Spinal stenosis of lumbar region, unspecified whether neurogenic claudication present Lumbar disc herniation ANTIBODY SCREEN STAT 12/24/2024 6:04 AM CDT ABO/RH STAT 12/24/2024 6:04 AM CDT TYPE AND SCREEN STAT 12/24/2024 6:04 AM CDT POC BLOOD GAS AND CHEMISTRIES, VENOUS Routine 12/24/2024 5:59 AM CDT PSA SCREEN Routine 10/23/2024 2:14 PM CDT Encounter for Medicare annual wellness exam HEPATITIS PANEL, ACUTE Routine 9:26 AM [employer] Hypokalemia Elevated LFTs HM COLONOSCOPY Routine 11/17/2023 from Last 3 Months or Most Recently Relevant to Health Maintenance Results * (ABNORMAL) POC Activated Clotting Time, High Range (03/04/2025 1:27 PM CDT) ACT 175(H) 87 - 138 sec POC Device Number [id number] [facility] Blood 03/04/2025 1:27 PM CDT 03/04/2025 1:27 PM CDT Estuardo Aquino MD LAB BLOOD ORDERA BLES Final Result [facility] Department [place] [address] * ABLATION VT, LEFT HEART CATHETERIZATION TRANSEPTAL PUNCTURE (03/04/2025 1:15 PM CDT) Anatomical Region Laterality Modality X-Ray Angiograph y Impressions 03/06/2025 9:36 AM CDT 1. Normal left ventricular size and function with calculated ejection fraction of 61%.. 2. No contrast enhancement to suggest an infarct or infiltrative cardiomyopathy. Risks and expected recovery has been explained in detail. Alternative options have been explored, and in a shared-decision making fashion we have decided that this was the most appropriate procedure. Method NPO status confirmed. Grounding pad applied. Defibrillator pads applied. Continuous surface ECG, pulse oximetry, and blood pressure were monitored. Procedure was performed under general anesthesia, with anesthesia services. Both groins were clipped, prepped with Chloraprep, and draped in sterile fashion. Local anesthesia administered with lidocaine 2%. Bilateral femoral veins were accessed for catheter placement, using ultrasound guidance, micro-puncture needle/wire, and modified seldinger technique. 4 sheaths were placed. The following catheters were used: [x] Celsius Thermocool RMT ablation catheter [x] ViewFlex ICE catheter [x] Inquiry decapolar 6Fr diagnostic catheter [x] CRD Hex 6Fr [x] HD Grid multielectrode mapping catheter Intracardiac ultrasound (ICE) was carefully advanced into the right atrium to identify potential complications, identify anatomic structures and ensure proper contact between ablation catheter and tissue. Heparin was given to achieve a target ACT of 300-400 second while mapping with Grid. ICE and 3D mapping was performed to identify relevant cardiac structures. A careful 3D geometry and activation map was created aided by robotic/magnetic navigation to assess for regions of early activation and best pace matches. See synopsis for details Catheter-based radiofrequency ablation was performed using a Ampere power generator. Target power was 30 Davis. See synopsis for details At procedure conslusion, ICE was used to rule out pericardial effusion. Hemostasis was obtained with vascade plugs. Protamine was not used for reversal. Estimated Blood Loss 5-10 mL Complications None Procedure Synopsis and Recommendations: 12 lead ECG in holding revealed left bundle left inferior axis PVCs with transition at V4. The patient entered the room in sinus rhythm with infrequent PVCs. Of note, moderate sedation was difficult to balance for him - he moved his legs and arms frequently requiring soft restraints. Stereotaxis magnets were also difficult to align due to body habitus. PVCs remained infrequent despite isurel initiation and washout. The PVCs were polymonomorphic with three dominant morphologies: PVC 1 left bundle left inferior axis PVCs with transition at V4, negative avL like those seen in holding ECG. PVC 2 was left bundle left inferior axis with transitiona at V3, aVL had Q wave followed by R PVC 3 was left bundle left superior axis with negative concordance PVC 1 was mapped taking activation points that were 95% or higher match, earliest site was mapped to the posteroseptal RVOT with Grid. The earliest area was somewhat diffuse so this was fine-tuned with Stereotaxis catheter. Pacemapping was also performed, best match was 85% at RVOT PVCs remained infrequent, but PVC 1 had QS unipolar signal here and was 30 msec early. Ablation was performed here, 30 W for 60 seconds or until 10 ohm impedence drop with ICE guidance. After delivering lesions in this region, the catheter was retracted and PVC burden was observed. Rare but mutiform PVCs were noted - similar primary characteristics to PVC 1 but different secondary characteristics. There was also PVC that looked similar to PVC3 in terms of primary characteristics. Given rare PVCs with different morphologies despite isuprel initiation/washout attempts, and procedure length, it was felt that risks outweighted benefits of left sided mapping and ablation at this stage of the procedure. Plan is for clinical monitoring, continue metoprolol and dilteizem Sotalol if breakthrough symptoms If symptoms despite sotalol, can attempt washout of all cooper blocking agents/antiarrhythmic and up front left sided mapping/ablation along with pacemapping from above the pulmonic valve onto the pulmonic valve cusps. Continue home apixaban, first dose tonight. Follow-up with Miles HERNANDEZ in 4-6 weeks. I was present during the entire procedure and personally confirmed the above report. Estuardo Aquino MD 03/04/2025 Narrative 03/06/2025 9:36 AM CDT Table formatting from the original result was not included. Patient Name: London Menendez Date of : 1960 Referring Physician: @PCP@ Procedure Date: 03/04/2025 Vascular Access Time (Start): 8:32am Sheath Pull Time (Finish): 12:38pm PROCEDURE: PVC/VENTRICULAR TACHYCARDIA ABLATION HPI London Menendez is a 64 y.o. year old male with the following arrhythmia specific history: Premature ventricular contractions Prior EKGs with left bundle left inferior axis PVC with transition at V4, suspect posterior RVOT site of origin History of NSVT though not strips in media with this from hospitalization 07/2024 (strips reviewed) Highly symptomatic with ILR in place for correlation Atrial fibrillation S/p ablation x 2 (Dr. Muñiz) last 07/2019 On apixaban 5 mg BID ILR in place (Dr. Muñiz) Obseity BMI 43 kg/m2 LJ on CPAP Lower back pain, left lower extremity numbness with plan for surgical intervention with Dr. Fairbanks Mr. Menendez has a highly symptomatic burden of premature ventricular contractions with a burden <5% per his loop recorder. He presented for further consideration of ablation as a second opinion. I discussed the risks, benefits and alternatives of PVC ablation with him and his and he would like to proceed. Prior Medical Therapies to Prevent VT/PVC [x] Beta-marc [x] Calcium channel-marc [] Amiodarone [] Sotalol [] Mexiletine [] Flecainide [] Dofetilide Prior Procedural Therapies to Prevent VT/PVCs [] Endocardial ablation [] Epicardial ablation [] Alcohol ablation [] Cardiac radioablation Procedure [x] VT Ablation procedure (11555) -- includes 3D mapping [] +LA/CS pacing (07448) [x] +Intracardiac ultrasound (57041) [] +Transseptal (03164) [x] +IV drug (47779) [] +Other Arrhythmia (83550) Preoperative Cardiac Imagin02/25/25 Cardiac MRI Estuardo Aquino MD CV ELECTROPHYSIO LOGY PROCS Final Result * (ABNORMAL) POC Activated Clotting Time, High Range (03/04/2025 9:39 AM CDT) ACT 321(H) 87 - 138 sec POC Device Number [id number] [facility] Blood 03/04/2025 9:39 AM CDT 03/04/2025 9:39 AM CDT Estuardo Aquino MD LAB BLOOD ORDERA BLES Final Result [facility] Department [place] [address] * (ABNORMAL) POC Activated Clotting Time, High Range (03/04/2025 9:09 AM CDT) ACT 348(H) 87 - 138 sec POC Device Number [id number] [facility] Blood 03/04/2025 9:09 AM CDT 03/04/2025 9:09 AM CDT us Estuardo Aquino MD LAB BLOOD ORDERA BLES Final Result Performing Organization Address City/[facility] Co de Phone Number [facility] [place] [address] * (ABNORMAL) POC Activated Clotting Time, High Range (03/04/2025 8:58 AM CDT) ACT 222(H) 87 - 138 sec POC Device Number [id number] [facility] Blood 03/04/2025 8:58 AM CDT 03/04/2025 8:58 AM CDT us Estuardo Aquino MD LAB BLOOD ORDERA BLES Final Result Performing Organization Address [facility] Co de Phone Number [facility] [place] [address] * (ABNORMAL) POC Activated Clotting Time, High Range (03/04/2025 8:49 AM CDT) ACT 195(H) 87 - 138 sec POC Device Number [id number] [facility] Blood 03/04/2025 8:49 AM CDT 03/04/2025 8:49 AM CDT Estuardo Aquino MD LAB BLOOD ORDERA BLES Final Result Performing Organization Address City/[facility] Co de Phone Number [facility] Department [place] [address] * ECG 12 lead (03/04/2025 7:16 AM CDT) Ventricular Rate EKG/Min 72 BPM [facility] Atrial Rate 72 BPM [facility] [place]-Interval (MSEC) 160 ms [facility] QRS-Interval (MSEC) 90 ms [facility] QT-Interval (MSEC) 496 ms [facility] QTc 543 ms [facility] P [place] 75 degrees [facility] R [place] 19 degrees [facility] T [place] 14 degrees [facility] Diagnosis Sinus rhythm with frequent Premature ventricular complexes in a pattern of bigeminy Nonspecific ST abnormality Prolonged QT Abnormal ECG When compared with ECG of 28-FEB-2025 08:29, PREVIOUS ECG IS PRESENT Confirmed by KORINA ANDRADE M.D ([id number]) on 03/05/2025 3:35:33 PM [facility] 03/04/2025 7:16 AM CDT 03/05/2025 3:35 PM CDT us Estuardo Aquino MD ECG ORDERABLES Final Result [facility] * Urinalysis reflex to microscopic (02/28/2025 9:25 AM CDT) Color, ur Yellow Yellow Clarity, ur Clear Clear [facility] Specific gravity, ur 1.029 1.003 - 1.030 [facility] pH, urine 6.0 [facility] Comment: Interpretive Data U rine pH is affected by diet, medications, systemic acid-base disturbances, and renal tubular function. pH may affect urinary stone formation. For example, urine pH below 6.0 may help reduce the tendency for calcium phosphate stones and pH greater than 6.0 may reduce the tendency for uric acid stone formation. Source: [place] [employer] Current Interpretive Data was last revised on 2017 Protein, ur ql Trace Negative [facility] Glucose, ur ql Negative Negative [facility] Ketones, ur Negative Negative [facility] Bilirubin, ur Negative Negative [facility] Blood, ur Negative Negative [facility] Urobilinogen, ur <2.0 <2.0 mg/dL [facility] Nitrite, ur Negative Negative [facility] Leukocyte esterase, ur Negative Negative [facility] UA reflex comment Reflex conditions for microscopic UA not met. [facility] Urine 02/28/2025 9:25 AM CDT 02/28/2025 9:51 AM CDT Estuardo Aquino MD LAB URINE ORDERA BLES Final Result Performing Organization Address [facility] Co de Phone Number [facility] [place] [address] * eGFR (02/28/2025 9:23 AM CDT) eGFR 67 >=60 mL/min/1. 73 [...] interpretive data was last reviewed 2021. Blood 02/28/2025 9:23 AM CDT 02/28/2025 9:53 AM CDT us Estuardo Aquino MD LAB BLOOD ORDERA BLES Final Result Performing Organization Address City/[facility]/ZIP Co de Phone Number [facility] Department [place] [address] * CBC without differential (02/28/2025 9:23 AM CDT) [facility] WBC 6.90 3.80 - 9.90 K/cumm Hgb 15.4 13.0 - 17.5 g/dL [facility] Hct 44.7 38.9 - 50.3 % [facility] Plt 221 150 - 400 K/cumm [facility] MPV 10.8 9.1 - 12.3 fL [facility] RBC 5.39 4.30 - 5.80 M/cumm [facility] MCV 82.9 81.3 - 96.4 fL [facility] MCH 28.6 27.1 - 33.3 pg [facility] MCHC 34.5 32.3 - 35.7 g/dL [facility] RDW CV 13.2 11.1 - 14.9 % [facility] RDW SD 39.4 35.7 - 48.1 fL [facility] NRBC abs 0.00 0.00 - 0.01 K/cumm [facility] Blood 02/28/2025 9:23 AM CDT 02/28/2025 9:53 AM CDT Estuardo Aquino MD LAB BLOOD ORDERA BLES Final Result [facility] Department [place] [address] * Basic metabolic panel (02/28/2025 9:23 AM CDT) [facility] Sodium 143 135 - 145 mmol/L Potassium, pl 3.4 3.3 - 4.9 mmol/L [facility] Chloride 100 97 - 110 mmol/L [facility] CO2 31 22 - 32 mmol/L [facility] Anion gap 12 2 - 15 mmol/L [facility] BUN 23 6 - 25 mg/dL [facility] Creatinine 1.19 0.80 - 1.30 mg/dL [facility] Glucose 97 70 - 199 mg/dL [facility] Comment: Interpretive Data Fasting glucose >/= [...] interpretive data was last revised 2022. Calcium 9.6 8.5 - 10.3 mg/dL [facility] Blood 02/28/2025 9:23 AM CDT 02/28/2025 9:53 AM CDT us Estuardo Aquino MD LAB BLOOD ORDERA BLES Final Result Performing Organization Address City/[facility]/ZIP Co de Phone Number [facility] Department [place] [address] * ECG 12 lead (02/28/2025 8:29 AM CDT) [facility] Ventricular Rate EKG/Min 71 BPM [facility] Atrial Rate 82 BPM [facility] [place]-Interval (MSEC) 162 ms [facility] QRS-Interval (MSEC) 92 ms [facility] QT-Interval (MSEC) 474 ms [facility] QTc 515 ms [facility] P [place] 81 degrees [facility] R [place] 10 degrees [facility] T [place] 33 degrees [facility] Diagnosis Sinus rhythm with frequent Premature ventricular complexes and Premature atrial complexes Nonspecific ST abnormality Prolonged QT Abnormal ECG When compared with ECG of 11-NOV-2024 13:51, PREVIOUS ECG IS PRESENT Confirmed by KORINA ANDRADE M.D ([id number]) on 02/28/2025 1:37:15 PM [facility] 02/28/2025 8:29 AM CDT 02/28/2025 1:37 PM CDT us Anson Manley SENIOR SOFTWARE SYSTEMS ENGINEER ECG ORDERABLES Final Re sult Performing Organization Address City/[facility]/ZIP Co de Phone Number [facility] * MRI Cardiac M&F W WO Contrast (02/25/2025 11:43 AM CDT) Anatomical Region Laterality Modality Body N/A Magnetic Resonan ce 02/25/2025 1:02 PM CDT Impressions 02/25/2025 1:02 PM CDT 1. Normal left ventricular size and function with calculated ejection fraction of 61%.. 2. No contrast enhancement to suggest an infarct or infiltrative cardiomyopathy. Electronically signed by: Evie Herrera M.D. Narrative 02/25/2025 1:02 PM CDT EXAM: Cardiac MRI Morphology and Function with Contrast, w/ Cardiac MRI Flow Quantification DATE OF EXAMINATION: 02/25/2025 9:30 AM COMPARISON: Premature ventricular contraction TECHNIQUE: Multiplanar MR imaging of the heart utilizing HASTE and TRUEFISP imaging sequences was performed with the administration of 20 mL intravenous gadolinium contrast agent according to a custom monitored protocol. 3-D postprocessing was subsequently performed on a dedicated 3-D workstation. HISTORY: Premature ventricular contractions Anatomy: Lymphadenopathy seen in the chest. There is mild bibasilar atelectasis. Anatomy is normal. There is a single right superior vena cava and a single right inferior vena cava draining into the right atrium. Pulmonary veins drain into the left atrium. There is a left-sided, normal aortic arch Left Ventricular (LV) Size and Function: The left ventricle is normal in size . No focal wall motion abnormality LV functional parameters: LVEF, 61%. LV end diastolic volume, 206 mL (indexed volume 72 ml/m2). LV end systolic volume, 80 mL. Stroke volume, 126 mL. Cardiac output, 7.3 L/min. Cardiac index, 2.5 L/min/meter2 ; BSA 2.9 meter2. Right Ventricular Size and Function: The right ventricle is normal in size. No focal wall motion abnormality.. RV functional parameters: RVEF, 49%. RV end diastolic volume, 247 mL (indexed 85 ml/m2). RV end systolic volume, 125 mL. Stroke volume, 122 mL. Cardiac output, 7.1 L/min. Cardiac index, 2.5 L/min/meter2. Myocardial T1 measurements: within normal limits Myocardial T2 measurements: within normal limits Late gadolinium enhancement: none . Valves: Mitral valve No stenosis or regurgitation. Tricuspid valve No stenosis or regurgitation. Pulmonic valve No stenosis or regurgitation. Aortic valve No stenosis or regurgitation. Flow Quantification: Aorta above valve Peak velocity 1.9 m/sec Fwd 132 ml Rev 2 ml Net 130 ml Flow/CO 3.3 L/min MPA Peak velocity 1.4 m/sec Fwd 137 ml Rev 0.5 ml Net 136.5 ml Flow/CO 12.1 L/min Procedure Note Evie Herrera MD - 02/25/2025 EXAM: Cardiac MRI Morphology and Function with Contrast, w/ Cardiac MRI Flow Quantification DATE OF EXAMINATION: 02/25/2025 9:30 AM COMPARISON: Premature ventricular contraction TECHNIQUE: Multiplanar MR imaging of the heart utilizing HASTE and TRUEFISP imaging sequences was performed with the administration of 20 mL intravenous gadolinium contrast agent according to a custom monitored protocol. 3-D postprocessing was subsequently performed on a dedicated 3-D workstation. HISTORY: Premature ventricular contractions Anatomy: Lymphadenopathy seen in the chest. There is mild bibasilar atelectasis. Anatomy is normal. There is a single right superior vena cava and a single right inferior vena cava draining into the right atrium. Pulmonary veins drain into the left atrium. There is a left-sided, normal aortic arch Left Ventricular (LV) Size and Function: The left ventricle is normal in size . No focal wall motion abnormality LV functional parameters: LVEF, 61%. LV end diastolic volume, 206 mL (indexed volume 72 ml/m2). LV end systolic volume, 80 mL. Stroke volume, 126 mL. Cardiac output, 7.3 L/min. Cardiac index, 2.5 L/min/meter2 ; BSA 2.9 meter2. Right Ventricular Size and Function: The right ventricle is normal in size. No focal wall motion abnormality.. RV functional parameters: RVEF, 49%. RV end diastolic volume, 247 mL (indexed 85 ml/m2). RV end systolic volume, 125 mL. Stroke volume, 122 mL. Cardiac output, 7.1 L/min. Cardiac index, 2.5 L/min/meter2. Myocardial T1 measurements: within normal limits Myocardial T2 measurements: within normal limits Late gadolinium enhancement: none . Valves: Mitral valve No stenosis or regurgitation. Tricuspid valve No stenosis or regurgitation. Pulmonic valve No stenosis or regurgitation. Aortic valve No stenosis or regurgitation. Flow Quantification: Aorta above valve Peak velocity 1.9 m/sec Fwd 132 ml Rev 2 ml Net 130 ml Flow/CO 3.3 L/min MPA Peak velocity 1.4 m/sec Fwd 137 ml Rev 0.5 ml Net 136.5 ml Flow/CO 12.1 L/min IMPRESSION: 1. Normal left ventricular size and function with calculated ejection fraction of 61%.. 2. No contrast enhancement to suggest an infarct or infiltrative cardiomyopathy. Electronically signed by: Evie Herrera M.D. us Estuardo Aquino MD IMG MRI PROCEDUR ES Final Result * [place] AN ELECTIVE ENDOTRACHEAL AIRWAY, [place] AN PROCEDURE PLACEHOLDER (02/25/2025 11:01 AM CDT) Narrative Theodore Cervantes CRNA - 02/25/2025 11:01 AM CDT Theodore Cervantes CRNA 02/25/2025 11:06 AM Airway Urgency: elective Date/time: 02/25/2025 9:56 AM Indications for airway management: anesthesia Difficult airway: no Staff: Supervising provider: Basia Tracey MD Placed by: FILLER BLOCK INSERTER REMOVER: Theodore Cervantes CRNA Emergent airway documentation: Risks and benefits discussed: yes Consent obtained: yes Consent given by: patient Airway prep: Preoxygenated: yes Patient position: sniffing Mask difficulty assessment: 3 - difficult mask (inadequate, unstable or two providers) Spontaneous ventilation during airway: absent Sedation level during airway: GA Final airway details: Final airway type: endotracheal airway Tube type: ETT ETT size: 7.5 mm Cuffed: yes Technique used for successful ETT placement: video laryngoscopy Devices/Methods used in placement: stylet Insertion site: oral Blade type: Boogie Video blade type: Earl Blade size: 4 Cormack-Lehane (video): grade IIa - partial view of glottis Cuff inflated with: air ETT to lips: 24 cm Placement verified by: auscultation and CO2 detection Airway secured with: silk tape Number of attempts: 1 us Basia Tracey MD ANESTHESIA ORDERABLES Final R esult * SCAN - RADIOLOGY/IMAGING (02/14/2025) Anatomical Region Laterality Modality Other us Provider Scanning Final Result * PSG-Sleep Provider Use Only (02/13/2025 7:58 AM CDT) Impressions Genesis Aguirre MD - 02/13/2025 7:58 AM CDT Indication for study: Mr. Menendez is a 64-year-old with chief complaints of snoring, unrefreshing sleep daytime fatigue and tiredness. Vital statistics: Age: 64 years Height: 75 in Weight: 354 lb BMI: 44.5 Procedure: A polysomnographic sleep study was performed. Variables monitored and recorded during the study; EEG, EOG, EKG, Chin EMG, snoring, lower extremity EMG, nasal and oral airflow, chest and abdominal wall movements, oxygen saturation and audio/video monitoring . Unless otherwise noted, polysomnogram was recorded and scored in accordance with recommended parameters as outlined in the AASM Manual for the Scoring of Sleep and Associated Events, Version 2.6. Hypopneas were scored in accordance with acceptable parameters as outlined in Chapter VIII, Part 1: Rules for Adults, Category D, Section 1B. Description of polysomnography findings: Patient had 383.6 minutes of monitored time. 63.5 minutes total sleep was present. Sleep efficiency was 66.1%. Latency from lights out to stage N1 was 238.1 minute, and latency stage N2 from sleep onset was 0 minute. Sleep stage recording stage wake of 321 minutes. Stage non-REM comprised 63.5 minute (100% total sleep time). This includes stage N1 was 3.5 minute (5.5% of total sleep time), and stage N2 60 minutes (94.5% total sleep time). No stage REM was achieved Arousal analysis revealed total of 90 arousals. The arousal index was 85.0. There were 51 spontaneous arousals. The spontaneous arousal index was 48.2. The apnea-hypopnea index was 28.3. Primarily nonsupine data was obtained. There were 3 central apneas, and 27 hypopneas recorded. Baseline oxygen saturation was 92.4%. Lowest oxygen saturation was 89%. Limb movement recording did not reveal any periodic limb movements average heart rate during wake was 72.4, and during sleep was 70.6 Impression: 1. Extremely poor sleep efficiency . 2. Moderate obstructive sleep disorder breathing. 3. Consider Positive Airway Pressure (PAP) devices such as continuous PAP (CPAP), auto-adjusting PAP (APAP), and bi-level PAP (Bi-PAP). 4. CPAP titration to determine optimal pressure required to alleviate sleep disordered breathing 5. Sleep hygiene should be reviewed to assess factors that may improve sleep quality. 6. Weight management and regular exercise should be initiated or continued 7. Avoid alcohol sedatives and other FINANCIAL REPRESENTATIVE depression that may worsen sleep apnea and disrupt normal sleep architecture 8. Patients with sleep apnea may have significant daytime hypersomnolence. If that is the case, driving or handling heavy machinery should be avoided until the apnea and excessive sleepiness have resolved. Narrative Genesis Aguirre MD - 02/13/2025 7:58 AM CDT In lab study is ready for review us Genesis Aguirre MD SLEEP CENTER ORDERABLES Final Re sult * [place] Fluoroscopy < 1 Hour (12/24/2024 8:42 AM CDT) Narrative [id number] - 12/24/2024 9:31 AM CDT The images from this study are not interpreted by Radiology. Please refer to the physician's procedure / OR operative note. us Benjamin Fairbanks MD IMG FLUOROSCOPY PROCEDUR ES Final Result [id number] * [place] AN ELECTIVE ENDOTRACHEAL AIRWAY, [place] AN PROCEDURE PLACEHOLDER (12/24/2024 8:00 AM CDT) Ximena Clark CRNA - 12/24/2024 8:00 AM CDT Ximena Edwards CRNA 12/24/2024 8:23 AM Airway Patient location: OR Urgency: elective Date/time: 12/24/2024 7:34 AM Indications for airway management: anesthesia Difficult airway: no Staff: Placed by: FILLER BLOCK INSERTER REMOVER: Ximena Edwards CRNA Emergent airway documentation: Risks [...] Final * ABO/Rh (12/24/2024 6:04 AM CDT) Pathologist [facility] ABO/Rh A Positive Blood 12/24/2024 6:04 AM CDT 12/24/2024 6:08 AM CDT Benjamin Fairbanks MD LAB BLOOD BANK TEST [facility] Final Result Performing Organization Address [facility] de Phone Number [address] [place] [address] * Antibody screen (12/24/2024 6:04 AM CDT) Pathologist [facility] Ashlee, indirect, Gel Interpretation Negative ABSC Blood 12/24/2024 6:04 AM CDT 12/24/2024 6:08 AM CDT Benjamin Fairbanks MD LAB BLOOD BANK TEST ORDE RABRAFIQ Final Result Performing Organization Address [facility] Co de Phone Number [address] [place] [address] * (ABNORMAL) POC Blood Gas and Chemistries, Venous - (12/24/2024 5:59 AM CDT) Pathologist [facility] pH,lc POC 7.42 7.32 - 7.43 pCO2, lc POC 43 40 - 50 mmHg [facility] pO2,lc POC 45 mmHg [facility] Comment: Interpretive Data No reference range established. Current interpretive data was last revised 2020. HCO3, lc (Calc) POC 28 20 - 30 mmol/L [facility] Base excess, lc POC 3 mmol/L [facility] Comment: Interpretive Data No reference range established. Current interpretive data was last revised 2020. Hemoglobin, lc POC 14.6 13.0 - 17.5 g/dL [facility] Hematocrit, lc POC 43.0 38.9 - 50.3 % [facility] Sodium, lc POC 139 135 - 145 mmol/L [facility] Potassium, lc POC 3.1(L) 3.3 - 4.9 mmol/L [facility] Comment: Interpretive Data This method is not able to assess for hemolysis, which may falsely increase potassium concentrations. If further testing is needed to evaluate this result, consider in-laboratory plasma potassium. Current Interpretive Data was last revised on 2022. Glucose, lc POC 85 70 - 199 mg/dL [facility] Ionized Calcium, lc POC 4.50 4.50 - 5.10 mg/dL [facility] Blood 12/24/2024 5:59 AM CDT 12/24/2024 5:59 AM CDT us Benjamin Fairbanks MD LAB POCT ORDERABLES - DE VICE Final Result [facility] [address] [facility] Department [place] [address] * PSA screen (10/23/2024 2:14 PM CDT) [facility] PSA-Total 1.50 <=5.40 ng/mL Comment: Interpretive Data [...] data last revised 21. Testing performed by: [facility], [address] [place] [address], [place]., [address] Blood 10/23/2024 2:14 PM CDT 10/23/2024 4:25 PM CDT Butch De Souza Jr., MD LAB BLOOD ORDERABLES Final Result [facility] [address] [facility] Department [place] [address] * Hepatitis panel, acute Blood (07/19/2024 9:26 AM TECHNICAL SUPPORT INTERNSHIP) Hep A IgM Nonreactive Nonreactive Comment: Interpretive Data: If Hep A IgM Ab is reported as Equivocal, a new sample should be drawn in two weeks for testing. Current interpretive data was last revised on 19. Hep B core IgM Nonreactive Nonreactive [facility] Comment: Interpretive Data If HepB Core IgM Ab is reported as Equivocal, a new sample should be drawn in two weeks for testing. Current interpretive data was last revised on 19. Hep C Ab Nonreactive Nonreactive [facility] Comment: Antibodies to HCV not detected. [...] last revised on 2019. HepBsAg Nonreactive Nonreactive [facility] Blood 07/19/2024 9:26 AM [employer]CHNICAL SUPPORT INTER[employer] 07/19/2024 2:49 PM TECHNICAL SUPPORT INTERNS[employer]IP Butch De Souza Jr., MD LAB MICROBIOLOGY - GE NERAL ORDERABLES Final Result JOR[facility] [address] [facility] Department [place] [address] * (ABNORMAL) COLONOSCOPY (11/17/2023) Scribed Colonoscopy Abnormal us Historical Provider HEALTH MAINTENANCE Final Result from Last 3 Months or Most Recently Relevant to Health Maintenance Insurance MEDICARE [employer] [facility] MEDICARE MEDICARE [place] [employer] Advance Directives For more information, please contact: [phone] Documents on File Type Date Recorded Patient Screen Printer Helper Expl anation Power of Machine Hostler 12/24/2024 5:17 AM * Full Code (Latest Code Status on File) Date Activated Date Inactivated Comments 03/04/2025 3:43 PM 03/05/2025 2:14 PM * Full Code Date Activated Date Inactivated Comments 11/08/2024 4:52 PM 11/14/2024 4:51 PM * Full Code Date Activated Date Inactivated Comments 07/30/2024 9:37 AM 08/09/2024 5:46 PM * Full Code Date Activated Date Inactivated Comments 11/28/2023 11:14 AM 11/28/2023 5:07 PM * Full Code Date Activated Date Inactivated Comments 11/17/2023 9:02 AM 11/17/2023 3:20 PM Care Teams Dry Lumber Grader Relationship Specialty Start [place] [address] [place] [address] PCP - General Internal Medicine 06/17/21 Yessica Worthy MD [address] [place] [address] Referring Physician Rheumatology 06/17/21 [place] [address] [place] [address] Consulting Physician Gastroenterology 06/17/21 [place] [address] [facility] [address] [place] [address] Consulting Physician Cardiovascular Disease 07/09/24 Grey Hand RN [address] [place] [address] [address] [place] [address] Electric Locomotive Crane Operator 08/12/24 [place] [address] [address] Consulting Physician Pulmonary Disease 12/10/24
--- OUTSIDE RECORDS SUMMARY | 2025-03-14 20:18 | XMS_ITS | Clinical Summary ---
Author Organization [facility] Address [address] [place] [address] Phone Care Team Providers Care Seed Buyer Name Role Phone Montana Gayle DO Primary Care Provider [phone] Allergies Active Allergy Reactions Criticality Noted Date [...] severe pain. Active APAP-CODEINE & DIET MANAGE VT PO Take 300 mg by mouth 3 [...] of Treatment Not on file Insurance MEDICARE [facility] Care Teams Seed Buyer Relationship Specialty Start Date End Date Montana Gayle DO [address] [place] [id number] PCP - General Internal Medicine 09/17/18
--- OUTSIDE RECORDS SUMMARY | 2025-03-14 20:18 | XMS_ITS | Encounter Summary ---
Author Organization [facility] Address [address] [place] [address] Care Team Providers Care Brazing Furnace Feeder Name Role Phone Nolvia Olivares MD, Butch Sanches Primary Care Provider Reason for Visit * Reason Onset Date Comments Chest pain, passed out 07/12/2022 Spoke W/ Tammie at Dr. Downs's office Encounter Details Date Type Department Care Team (Late st Contact Info) Description 07/12/2022 Telephone [facility] Admitting [address] [place] [address] [place] [address] [address] Chest pain, passed out (Spoke [...] Coronavirus/COVID-19? No / Unsure 07/11/2022 5:52 PM DIGITAL STRATEGIST documented as of this encounter Plan of Treatment Not on file documented as of this encounter Visit Diagnoses Not on filedocumented in this encounter Care Teams Brazing Furnace Feeder Relationship Specialty Start Date End Date Butch De Souza Jr., MD [address] [place] [phone] PCP - General Internal Medicine 05/10/22 documented as of this encounter
--- OUTSIDE RECORDS SUMMARY | 2025-03-14 20:18 | XMS_ITS | Encounter Summary ---
Author Organization [facility] Healthcare Address [address] [place] [address] Care Team Providers Care Senior Microsoft Net Developer Name Role Phone Nolvia Olivares MD, Butch Cross Primary Care Provide r Yessica Worthy MD Unavailable [phone] Tonny Yoon MD Unavailable [phone] Ajay Downs MD Unavailable [phone] Grey Hand RN Unavailable [phone] Kodi Griggs MD Unavailable [phone] Reason for Visit * Reason Onset Date Comments Hypertension 03/14/2025 Encounter Details Date Type Department Care Team (Late st Contact Info) Description 03/14/2025 Nurse Triage [facility] Medical Group Primary Care [address] [address] Butch De Souza Jr., MD [address] [place] [id number] Social History Tobacco Use Types Packs/Day Years Used Date Smoking Tobacco: Never Passive Smoke Exposure: Never Smokeless Tobacco: Never Alcohol Use Standard Drinks/Week Comments Never 0 (1 standard drink = 0.6 oz pur e alcohol) [facility] Utilities Answer Date Recorded In the [...] often do you attend chur ch or yazidi services? Never 11/11/2024 Do you belong to [...] slept in a chcf (including now)? No 11/18/2023 PHQ-9 Answer Date [...] any time in the past 12 m [facility], were you homeless or living in a chcf (including now)? 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 Pt reports he is unable to drive at this time. Pt reports for the past 3 weeks or so he has been having BP issues with high BP at times. Pt saw Cardio yesterday in OV. Pt reports today BP 206/134 HR 69 and other arm 197/137 . Pt has been working with cardio in regards to his BP. Pt reports a headache, mild blurred vision , dizziness if moves quickly at this time. Pt reports the blurred vision is normal for him with the headaches nothing new. Pt was instructed by Cardio at OV to take normal meds and then take 1 tab clonidine if bp 170/190 systolic, wait an hour and recheck, if BP still elevated take another, wait two hours and if BP still high going to ED. Pt reports he took Cardizem, lopressor, losartan, hydrochlorothiazide about 20 minutes ago , pt also took the clonidine. BP readings were taken 5 minutes ago. Pt was sent to hospice executive director when calling to cancel apt due to headache. Denies numbness or weakness on manuel side of the face or body Provider contacted via secure chat for ED disposition consult. Recommendation from provider:Proceed to ED OV canceled for today. Pt plans to reach out to Cardio as well. Pt will call back once feeling well enough to set up matthias apt. Pt verbalized understanding. [facility]th[facility] apt canceled by this RN due to ED recommendation from PCP at this time. Disposition Go to ED/UCC Now (or to Office With PCP Approval) Reason for Disposition Patient sounds very sick or weak to the triager No Initial Assessment on file. No Additional Information on file. Protocols Used Blood Pressure - [id number] * Telephone Encounter - Heather Barron RN - 03/14/2025 9:44 AM CDT Regarding: severe headache, shakes, blood pressure 190/117, numb lip ----- Message from Katelynn Gutierrez sent at 03/14/2025 9:42 AM CDT ----- Symptom Based Call Chief Complaint(s): severe headache, shakes, blood pressure 190/117, numb lip Duration: 1 day What type of symptom(s) is the patient experiencing? Red Flag. Is the patient concerned they are experiencing a medical emergency requiring an ambulance? No Additional Comments: Patient said first reading on his home machine did not register, second attempt is 190/117 while telecommunications administrator with me. He had a recent heart ablation, and has a history of hypertension. He will take his medication and rest. Does message need to be routed? Yes-Action Needed documented in this encounter Plan of Treatment Not on file documented as of this encounter Goals Goal Patient Goal Type Associated Problems Recent Progress Patient-Stated? Author MATTHIAS General Goal - Patient is knowledgeable about [...] on filedocumented in this encounter Care Teams Senior Microsoft Net Developer Relationship Specialty Start Date End Date Butch De Souza Jr., MD [facility] [address] PCP - General Internal Medicine 06/17/21 Yessica Worthy MD [address] [facility] [address] [place] [address] Referring Physician Rheumatology 06/17/21 [place] [address] [place] [address] Consulting Physician Gastroenterology 06/17/21 [place] [address] [facility] [address] [place] [address] Consulting Physician Cardiovascular Disease 07/09/24 Grey Hand RN [address] [place] [address] [address] [place] [address] Water Quality Analyst 08/12/24 [place] [address] [address] [place] [address] Consulting Physician Pulmonary Disease 12/10/24 documented as of this encounter
--- OUTSIDE RECORDS SUMMARY | 2025-03-14 20:18 | XMS_ITS | Encounter Summary ---
Author Organization [facility] Healthcare Address [address] [place] [address] Care Team Providers Care Sap Bw Architect Name Role Phone Swathi Golden RN Unavailable Unavailab Heydi Razo MD Primary Care Provider Heydi Hood MD Primary Care Provider Nolvia Olivares MD, Butch Cross Primary Care Provide r Sheri Mac MD Unavailable Yessica Worthy MD Unavailable Tonny Yoon MD Unavailable Cortney García RN Unavailable [phone] Ajay Downs MD Unavailable [phone] Grey Hand RN Unavailable [phone] Kodi Griggs MD Unavailable Encounter Details Date Type Department Care Team (Late st Contact Info) Description 11/06/2017 Orders Only [facility] Health Information Management [address] [place] [address] Scanning, Provider Social History Tobacco Use Types Packs/Day Years Used Date Smoking Tobacco: Never Smokeless Tobacco: Never Alcohol Use Standard Drinks/Week Comments No 0 (1 standard drink = 0.6 oz pur e alcohol) Sex and Gender Information Value Date Recorded Sex Assigned at Not on file 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 Gender Identity Not on file Sexual Orientation [...] COVID: Suspected 06/14/2021 06/14/2021 06/14/2021 7:24 PM TYPEWRITER RIBBON WINDER COVID: Suspected 01/16/2022 01/16/2022 01/16/2022 7:20 PM CDT COVID: Suspected 08/22/2022 08/22/2022 08/22/2022 9:42 AM TYPEWRITER RIBBON WINDER COVID: Suspected 08/04/2024 08/04/2024 08/04/2024 3:41 PM TYPEWRITER RIBBON WINDER COVID: Suspected 08/05/2024 08/05/2024 08/05/2024 1:23 PM TYPEWRITER RIBBON WINDER Rhino/Enterovirus 11/08/2024 11/08/2024 11/15/2024 3:05 AM CDT documented as of this encounter Care Teams Sap Bw Architect Relationship Specialty Start Date End Date Heydi Hood MD [address] [place] [address] [address] [facility] [address] [place] [address] PCP - General Family Medicine 03/03/21 06/13/21 Heydi Hood MD [address] [facility] [address] [place] [address] PCP - General 06/14/21 06/16/21 Butch De Souza Jr., MD [address] [place] [address] PCP - General Internal Medicine 06/17/21 Swathi Golden, RN Registered Nurse 04/15/19 01/18/23 Sheri Mac MD [address] [address] Endocrinology 06/17/21 12/09/24 Yessica Worthy MD [address] [facility] [address] [place] [address] Referring Physician Rheumatology 06/17/21 [place] [address] [place] [address] Consulting Physician Gastroenterology 06/17/21 Cortney García, LEBRON [address] [place] [address] [facility] [address] [place] [address] Square Shear Operator 11/09/23 05/30/24 [place] [address] [facility] [address] [place] [address] Consulting Physician Cardiovascular Disease 07/09/24 Grey Hand, LEBRON [address] [place] [address] [facility] [address] [place] [address] Square Shear Operator 08/12/24 [place] [address] [address] [facility] [address] [place] [address] Consulting Physician Pulmonary Disease 12/10/24 documented as of this encounter
--- NOTE | 2025-03-14 21:00 | PC.NURSE ---
Pt. c/o 01/09 cluster headache. States he has a hx of migraines and the migraine cocktail usually helps. Dr. Perea notified.
--- NOTE | 2025-03-14 21:32 | ECG_ITS ---
Test Date: 2025-03-14 21:42:30 Measurements Intervals [place] Rate: 70 P: 69 FL: 179 QRS: 5 QRSD: 99 T: 25 QT: 457 QTc: 495 Interpretive Statements SINUS RHYTHM WITH FREQUENT VENTRICULAR PREMATURE COMPLEXES MINIMAL ST DEPRESSION [0.025+ mV ST DEPRESSION] PROLONGED QT INTERVAL ABNORMAL ECG ST ABNORMALITIES STILL PRESENT Electronically Signed On 03-15-2025 12:19:28 CDT by Rich Galindo M.D.
[2025-03-14] MEDS: SODIUM CHLORIDE 0.9% IV 1,000 ML 999 ML IV CONT (21:34)
[2025-03-14] MEDS: METOCLOPRAMIDE HCL INJ 10 MG/2 ML VIAL IV PUSH (21:35)
[2025-03-14] MEDS: ACETAMINOPHEN 500 MG TABLET 1000 MG PO (21:37)
[2025-03-14 22:07] LABS: Troponin I < 0.012 ng/mL (0.000-0.034)
[2025-03-14] MEDS: METOPROLOL SUCCINATE EXT REL 25 MG TABCR PO (23:15)
--- NOTE | 2025-03-14 23:19 | PC.NURSE ---
Per leeroy Pfeiffer to d/c pt. with bp of 190/124.
== END 2025-03-14 23:25 | disposition home or self-care (01) ==
PROVIDERS: Emergency Medicine; Emergency Provider Emergency Medicine; PCP Hospitalist
DX: R00.2 Palpitations (principal); I49.3 Ventricular premature depolarization; R06.00 Dyspnea, unspecified; I10 Essential (primary) hypertension; Z79.01 Long term (current) use of anticoagulants
CPT/HCPCS: 36415; 71046; 80053; 83690; 83735; 83880; 84484; 85025; 85610; 85730; 93005; 96361; 96374; 96375; 99284; A9270; J0360; J1200; J2765; J7030

== ENCOUNTER 2025-05-02 12:27 | Inpatient (IN) | payer MEDICARE, BC, SELFPAY ==
--- OUTSIDE RECORDS SUMMARY | 2014-11-17 04:00 | XMS_ITS | Continuity of Care Document ---
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 [address] [facility], [address], [facility], [place]. tel:[phone] [facility] [employer] [facility], [address], [place], [place], [address], [place] tel:[phone] SEC Rip Maxwell No Information 5 Gabi Delacruz. [address] [facility], [address], [address], [place]. tel:[phone] [facility], [address], [place], [place], [address], tel:[phone] [facility] [place] No Information 0 5 Gabi Delacruz. [address], [address], [place], [place], [facility], . tel:[phone] [facility], [address], [place], [place], [address], tel:[phone] SEC Rip N [place] No Information 5 Gabi Delacruz. [address], [address], [place], [place], [facility], . tel:[phone] [facility], [address], [place], [place], [address], tel:[phone] SEC Macdoel N Lind[place] No Information 5 Gabi Delacruz. [address] [facility], [address], [place], [place], [facility], . tel:[phone] [facility], [address], [place], [place], [id number], [place] [phone] SEC Augie HINDS Professional blurry vision (chief complaint) Nuclear sclerosis 5 Gabi Delacruz. [address], [address], [place], [place], [facility], . [phone] Referring Provider: Nato Hernandez OD F, [address] [facility] [address], [place], [address]. tel:[phone] [facility], [address], [place], [place], [address], [place] tel:[phone] SEC Augie HINDS Professional No Information 5 Gabi Delacruz. [address], [address], [place], [place], [facility], . [phone] Family History Family Member Type Diagnosis Age At Onset No Information Payers Payer name Insurance type Covered democrat ID Authoriza tion(s) [place] [id number] [facility] [place] BL [id number] Social History Type Description Quantity Date Captured [...]
--- OUTSIDE RECORDS SUMMARY | 2014-11-17 04:00 | XMS_ITS | Continuity of Care Document ---
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 Name Role Phone Jayme Ashley MD, MD [...] operated eye QID as directed - Active Voltaren 1 % topical gel apply (2G) by topical route 4 times every day to the affected area(s) - Active verapamil 40 mg tablet - Active naproxen sodium 220 mg capsule - Active Remicade 100 mg intravenous solution - Active carisoprodol 350 mg tablet - Active hydrocodone 10 mg-acetaminophen 325 mg tablet - Active Nitrostat 0.[address] 1 tablet by sublingual route at the 1st sign of attack; may repeat every 5 min until relief; if pain persists after 3 tablets in 15 min, prompt medical attention is recommended 0.4 MG - Active COQ-10 (unknown strength) Not Available - Active vitamin E 400 unit capsule - Active PROBIOTIC (unknown strength) Not Available - Active Vitamin C 500 mg tablet - Active escitalopram 20 mg tablet take 1 tablet by oral route every day 20 MG - Active gabapentin 300 mg capsule take 1 capsule by oral route 3 times every day 300 MG - Active VENLAFAXINE HCL ER (unknown strength) take 1 capsule by oral route every day Not Available - Active quetiapine 300 mg tablet take 1 tablet by oral route every day 300 MG - Active nortriptyline 25 mg capsule - Active tamsulosin ER 0.4 mg capsule,extended release 24 hr take 1 capsule by oral route every day 1/2 hour following the same meal each day 0.4 MG - Active potassium chloride ER 10 mEq capsule,extended release take 2 capsule by oral route every day with food 20 MEQ - Active ranitidine 150 mg tablet - Active FISH OIL (unknown strength) Not Available - Active sotalol 80 mg tablet - Active warfarin 4 mg tablet take 1 tablet by oral route every day 4 MG - Active lisinopril 10 mg tablet take 1 tablet by oral route every day 10 MG - Active WelChol 625 mg tablet - Active Procedures Procedure Date Remove Cataract, Insert Lens IOLMaster-Professional Remove Cataract, Insert Lens IOLMaster-Professional Eye Exam, New Patient No Charge Refraction IOLMaster-Technical Advance Directives Directive Yes / No Effective Date File Name No Information Encounters Encounter Description Practice Location Reason(s) For Visit Diagnoses Date Provider Providers Copied on [facility]counter [facility], [address] [place] [address] [address], [place], [place], [id number], [place] tel:[phone] [facility] No Information 5 Gabi Delacruz. [address], [facility] [address], [place], [facility], [place]. tel:[phone] [facility], [address], [place], [place], [address], [place] tel:[phone] SEC Rip Maxwell No Information 5 Gabi Delacruz. [address] [facility], [address], [place], [address], [place]. tel:[phone] [facility], [address], [place], [place], [address], tel:[phone] [facility] [place] No Information 0 5 Gabi Delacruz. [address], [address], [place], [place], [facility], . tel:[phone] [facility], [address], [place], [place], [address], tel:[phone] SEC Rip N [place] No Information 5 Gabi Delacruz. [address], [address], [place], [place], [facility], . tel:[phone] [facility], [address], [place], [place], [address], tel:[phone] SEC [place] No Information 5 Gabi Delacruz. [address] [facility], [address], [place], [place], [facility], . tel:[phone] [facility], [address], [place], [place], [address], [place] [phone] SEC Augie HINDS Professional blurry vision (chief complaint) Nuclear sclerosis 5 Gabi Delacruz. [address], [address], [place], [place], [facility], . [phone] Referring Provider: Nato Hernandez OD F, [address] [facility] [address], [place], [address]. tel:[phone] [facility], [address], [place], [place], [address], [place] tel:[phone] SEC Augie HINDS Professional No Information 5 Gabi Delacruz. [address], [address], [place], [place], [facility], . [phone] Family History Family Member Type Diagnosis Age At Onset No Information Payers Payer name Insurance type Covered democrat ID Authoriza tion(s) Medicare [place] [id number] [facility] [place] Out [place] BL [id number] Social History Type Description Quantity Date Captured [...]
[2025-05-02] VITALS (17 sets, daily range): BP systolic 127–174; BP diastolic 74–106; PULSE 55–65; RESP 14–27; TEMP 36.4–36.6; O2SAT 95–99; BMI 44.8
--- NOTE | ~2025-05-02 | XR_ITS ---
EXAMINATION: XR chest 2V, 05/02/2025 13:10 CDT HISTORY: Chest Pressure, DIZZY COMPARISON: No comparisons available. Technique: 2 views obtained. Findings: The lungs are clear, no effusion. No pneumothorax. Heart is normal size. Mediastinal and hilar contours are within normal limits. Bony thorax no acute abnormality. Impression: No acute cardiopulmonary abnormality. Reviewed, dictated and finalized at location P. Impression: No acute cardiopulmonary abnormality.
--- NOTE | ~2025-05-02 | CT_ITS ---
EXAMINATION: CT brain wo jose maria, 05/02/2025 15:50 CDT HISTORY: headache, severe htn COMPARISON: No comparisons available. Technique: Axial images obtained of the brain without contrast. One or more of the following dose reduction techniques were used: automated exposure control, adjustment of the mA and/or kV according to patient size, use of iterative reconstruction technique. Findings: No acute infarct or parenchymal hemorrhage. No abnormal mass or mass effect. No midline shift. No extra-axial fluid collections. No hydrocephalus. Mastoid air cells unremarkable. Sinuses and orbits unremarkable. No acute fracture. No significant facial or scalp soft tissue swelling evident. No radiopaque foreign body is seen. Impression: 1.No acute intracranial abnormality. Reviewed, dictated and finalized at location P. Impression: 1.No acute intracranial abnormality.
--- NOTE | ~2025-05-02 | CT_ITS ---
EXAMINATION: CTA chest abdomen pelvis DATE: 05/02/2025 18:00 INDICATION: Chest pain. TECHNIQUE: Computed tomographic angiography (CTA) of the chest, abdomen, and pelvis was performed without and with 100 mL Omnipaque-350 intravenous contrast. Volume-rendered 3D-reconstructions of the aorta and large arteries were constructed by the technologist on a separate workstation. Automated exposure control and iterative reconstruction technique were employed. The dose-length product was 4101.02 mGy-cm. COMPARISON: CT studies dated 12/05/2023 and 11/23/2023 FINDINGS: Chest: Unchanged 5 mm nodule along the right minor fissure potentially an intrafissural lymph node. Mild atelectasis/scarring at the anterior lung bases. Calcified nodules in the left upper and right lower lobes along with calcified left hilar lymph nodes consistent with old granulomatous disease. No pneumonia, pulmonary edema, pleural effusion or pneumothorax. Heart size is normal. No pericardial effusion. Atherosclerotic coronary artery calcification. No pericardial effusion. Fusiform ascending thoracic aortic aneurysm measuring up to 4.6 x 4.3 cm. No dissection. No pathologically enlarged thoracic lymphadenopathy. Right shoulder arthroplasty. Lucent T9 hemangioma with typical coarse vertical trabecula pattern. Mild thoracic spondylosis with bridging osteophytes at multiple levels consistent with diffuse idiopathic skeletal hyperostosis (DISH). Old healed bilateral rib fractures. Abdomen and pelvis: Diffuse hepatic steatosis. Cholecystectomy clips at the gallbladder fossa. Splenic calcific lesions consistent with old granulomatous disease. Pancreas, bilateral adrenal glands and left kidney are normal. 2.1 cm right renal cyst. Mild scattered colonic diverticulosis without adjacent from trace stranding to suggest diverticulitis. No bowel obstruction. Normal appendix. Bladder is normal. Small fat-containing right inguinal hernia. Prostatomegaly measuring 4.7 x 3.7 cm. No free intraperitoneal gas or fluid. No pathologically enlarged abdominal or pelvic lymphadenopathy. Abdominal aorta is normal in caliber with no dissection. Moderate lumbar spondylosis with L5-S1 anterior and posterior spinal fusion. IMPRESSION: 1. 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 Remainder of the aorta is normal in caliber with no dissection. No other acute cardiopulmonary disease or acute intra-abdominal/pelvic process. 2. Diffuse hepatic steatosis. 3. Small fat-containing right inguinal hernia. Reviewed, dictated and finalized at location A. IMPRESSION: 1. No significant interval change in mild fusiform aneurysm of the ascending th oracic aorta measuring up to 4.6 x 4.3 cm. Remainder of the aorta is normal in caliber with no dissection. No other acute cardiopulmonary disease or acute int ra-abdominal/pelvic process. 2. Diffuse hepatic steatosis. 3. Small fat-containing right inguinal hernia.
--- NOTE | 2025-05-02 12:29 | ECG_ITS ---
Test Date: 2025-05-02 12:33:56 Measurements Intervals [place] Rate: 68 P: 55 MN: 170 QRS: 3 QRSD: 98 T: 29 QT: 471 QTc: 504 Interpretive Statements SINUS RHYTHM WITH FREQUENT VENTRICULAR PREMATURE COMPLEXES PROLONGED QT INTERVAL BASELINE ARTIFACT- I, II, III, AVL, V4-V6 ABNORMAL ECG Compared to ECG 03/14/2025 21:42:30 NO SIGNIFICANT CHANGE Electronically Signed On 05-02-2025 12:43:51 CDT by Chano Villagomez D.O.
--- OUTSIDE RECORDS SUMMARY | 2025-05-02 12:29 | XMS_ITS | Clinical Summary ---
Author Organization [facility] Address [address] [facility] [[email or web address]][address] [place] [address] Phone Care Team Providers Care Patient Financial Representative Name Role Phone Nolvia Olivares MD, Butch [...] times daily as needed. 0 Active omega 9-mwj-zbd-fish oil 360-1,200 mg Capsule, Delayed Release(E.C.) Take [...] Comments Blood Pressure 102/59 07/13/2022 3:53 PM DETHISTLER OPERATOR Pulse 65 07/13/2022 3:51 PM DETHISTLER OPERATOR Temperature 36.6 C (97.8 F) 07/13/2022 3:51 PM DETHISTLER OPERATOR Respiratory Rate 18 07/13/2022 3:51 PM DETHISTLER OPERATOR Oxygen Saturation 98% 07/13/2022 3:51 PM DETHISTLER OPERATOR Inhaled Oxygen Concentration - - Weight 149.7 kg (330 lb) 05/10/2022 3:44 PM DETHISTLER OPERATOR Height 190.5 cm (6' 3) 05/10/2022 3:44 PM DETHISTLER OPERATOR Body Mass Index 41.25 05/10/2022 3:44 PM DETHISTLER OPERATOR Plan of Treatment Health Maintenance Due Date Last Done Comments COLORECTAL SCREENING 2003 Colorectal Cancer Screening 2003 FIT-DNA Q 3 years 2003 FIT/FOBT Q 1 year 2003 Flex Sig/CT Colonography Q 5 years 2003 PNEUMOCOCCAL VACCINE 50+ YEA RS (1 of 1 - PCV) 2008 RSV VACCINE (60+ or ) (1 - Risk 50-74 years 1-dose series) 2008 ZOSTER VACCINE (1 of 2) 2008 Pre-Diabetes and Diabetes Screening 05/21/202305/21 INFLUENZA VACCINE (#1) 2025 DTAP/TDAP/TD VACCINES (3 - Td or Tdap) 05/16/2030, 02/23/2015 Procedures Procedure Name Priority Date/Time Associated Diagnosis Comments HEMOGLOBIN A1C Stat 05/21/2020 4:21 PM DETHISTLER OPERATOR from Last 3 Months or Most Recently Relevant to Health Maintenance Results * HEMOGLOBIN A1C (05/21/2020 4:21 PM DETHISTLER OPERATOR) HEMOGLOBIN A1C 5.5 <=5.6 % 05/22/2020 3:04 AM DETHISTLER OPERATOR [facility] EST. AVG GLUCOSE, A1C 111 mg/dL 05/22/2020 3:04 AM DETHISTLER OPERATOR [facility] Blood Venipuncture / Unknown 05/21/2020 4:21 PM DETHISTLER OPERATOR 05/21/2020 4:29 PM DETHISTLER OPERATOR Narrative [facility] - 05/22/2020 3:04 AM DETHISTLER OPERATOR HGB A1C INTERPRETATION NORMAL: <5.7% PRE-DIABETES: 5.7 - 6.4% DIABETES: 6.5% OR GREATER us Albert Allred MD CHEMISTRY ORDERABLES Final Res ult [facility] CLIA# [id number] [place] [address] from Last 3 Months or Most Recently Relevant to Health Maintenance Insurance MEDICARE PART A AND B [facility] BLUE ACCESS/TRUE BLUE PPO Advance Directives For more information, please contact: [phone] * Full Code (Latest Code Status on File) Date Activated Date Inactivated Comments 07/11/2022 5:49 PM 07/13/2022 7:24 PM * Full Code Date Activated Date Inactivated Comments 03/30/2022 12:44 PM 03/30/2022 8:02 PM * Full Code Date Activated Date Inactivated Comments 05/22/2020 6:25 AM 05/23/2020 7:43 PM Care Teams Patient Financial Representative Relationship Specialty Start Date End Date Butch De Souza Jr., MD [address] [place] [phone] PCP - General Internal Medicine 05/10/22
--- OUTSIDE RECORDS SUMMARY | 2025-05-02 12:30 | XMS_ITS | Encounter Summary ---
Author Organization [facility] Address [address] [place] [address] Phone Care Team Providers Care Special Services Director Name Role Phone Nolvia Olivares MD, Butch Cross Primary Care Provide r Yessica Worthy MD Unavailable [phone] Tonny Yoon MD Unavailable Ajay Downs MD Unavailable Grey Hand RN Unavailable Kodi Griggs MD Unavailable [phone] Encounter Details Date Type Department Care Team (Late st Contact Info) Description 04/17/2025 Results Follow-Up [facility] Medicine Cardiology [address] [facility] Advanced Medicine 8th [place] [address] [place] [address] Hyacinth Burgess, SPORTS DEVELOPMENT OFFICER [address] [facility] [address] [place] [address] ECG 12 lead Social History Tobacco Use Types Packs/Day Years Used Date Smoking Tobacco: Never Passive Smoke Exposure: Never Smokeless Tobacco: Never Alcohol Use Standard Drinks/Week Comments Never 0 (1 standard drink = 0.6 oz pur e alcohol) [facility] Utilities Answer Date Recorded In the [...] often do you attend chur ch or temple services? Never 11/11/2024 Do you belong to any clubs o r organizations such as faith groups, unions, fraternal or athletic groups, or [...] points, staff should administer the PHQ-9) 0 03/21/2025 Hunger Vital Sign Answer Date Recorded Within [...] place to sleep or slept in a [place] (including now)? No 11/18/2023 PHQ-9 Answer Date [...] any time in the past 12 m [facility], were you homeless or living in a [place] (including now)? 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 Author CECILIO General Goal - Patient is knowledgeable about condition when worsening and how to respond ACO Care Management On track(2024 2:55 PM CDT) No Grey Hand, RN Note: Problem: Knowledge deficit related to [...] on filedocumented in this encounter Care Teams Special Services Director Relationship Specialty Start Date End Date Butch De Souza Jr., MD [facility] [address] PCP - General Internal Medicine 06/17/21 Yessica Worthy MD [address] [facility] [address] [place] [address] Referring Physician Rheumatology 06/17/21 [place] [address] [place] [address] Consulting Physician Gastroenterology 06/17/21 [place] [address] [address] [facility] [address] [place] [address] Consulting Physician Cardiovascular Disease 07/09/24 Grey Hand, LEBRON [address] [place] [address] [address] [place] [address] Field Staff Manager 08/12/24 [place] [address] [address] [place] [address] Consulting Physician Pulmonary Disease 12/10/24 documented as of this encounter
--- OUTSIDE RECORDS SUMMARY | 2025-05-02 12:30 | XMS_ITS | Encounter Summary ---
Author Organization [facility] Address [address] [place] [address] Phone Care Team Providers Care Form Layer Name Role Phone Nolvia Olivares MD, Butch Cross Primary Care Provide r Yessica Worthy MD Unavailable [phone] Tonny Yoon MD Unavailable [phone] Ajay Downs MD Unavailable Grey Hand RN Unavailable Kodi Griggs MD Unavailable Encounter Details Date Type Department Care Team (Late st Contact Info) Description 05/02/2025 Telephone [facility] Medicine Cardiology [address] [facility] Advanced Medicine 8th [place] [address] [place] [id number] Estuardo Aquino MD [address] [facility] [address] [place] [address] Social History Tobacco Use Types Packs/Day Years Used Date Smoking Tobacco: Never Passive Smoke Exposure: Never Smokeless Tobacco: Never Alcohol Use Standard Drinks/Week Comments Never 0 (1 standard drink = 0.6 oz pur e alcohol) [facility] Utilities Answer Date Recorded In the past [...] often do you attend chur ch or gnosticism services? Never 11/11/2024 Do you belong to [...] place to sleep or slept in a long term (including now)? No 11/18/2023 PHQ-9 Answer Date [...] time in the past 12 m [facility], were you homeless or living in a long term (including now)? 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 Menendez. He is SOB on the phone. He is lightheaded, sweating, uncomfortable, and has a headache. He has already taken PRN catapres. I told him to go to his nearest ER. He knows not todrive himself. He said his will take him to [facility] in [place]. I let him know he will need to let the ER know he is hypertensive, SOB, lightheaded, has a headache, is uncomfortable, has a history of AF, and had a recent ablation. They are going to the ER now. * Telephone Encounter - Hyacinth Fam - 05/02/2025 11:39 AM CDT Miles Pt calling and states his BP was 230/140 last night and current reading is 180/120. Patient is sweating and experiencing lightheadedness and headache. documented in this encounter Plan of Treatment [...] on filedocumented in this encounter Care Teams Form Layer Relationship Specialty Start Date End Date Butch De Souza Jr., MD [address] [place] [address] PCP - General Internal Medicine 06/17/21 Yessica Worthy MD [address] [facility] [address] [place], [place] [id number] Referring Physician Rheumatology 06/17/21 [place] [address] [place] [address] Consulting Physician Gastroenterology 06/17/21 [place] [address] [address] [facility] [address] [place] [address] Consulting Physician Cardiovascular Disease 07/09/24 Grey Hand RN [address] [place] [address] [facility] [address] [place] [address] Aerospace Stress Engineer 08/12/24 [place] [address] [address] [place] [address] Consulting Physician Pulmonary Disease 12/10/24 documented as of this encounter
--- OUTSIDE RECORDS SUMMARY | 2025-05-02 12:30 | XMS_ITS | Patient Health Record ---
Author Organization [facility] [employer] Address [address] [facility] [address] [place] [address] Care Team Providers Care Customs And Border Protection Inspector Name Role Phone BOBBY STRATTON, [facility] Primary Care Provider Fadi Kaufman Unavailable [phone] ShakiraSally Unavailable [phone] Allergies Allergen (clinical drug ingredient) Drug/Non Drug Allergy documented on EMR Reaction Allergy Type Onset Date Status PLACIDYL (uncoded) Unknown Allergy 10/20/2023 Active aripiprazole Abilify Unknown Drug Allergy 10/20/2023 Act azar sumatriptan Imitrex Unknown Drug Allergy 10/20/2023 Acti ve Methotrexate Unknown Drug Allergy 10/20/2023 Act azar Results Component Value Reference Range Notes UDT Reviewed date:02/12/2025 01:35:20 PM Interpretation: Performing Lab: Notes/Report: Amphetamine (AMP) N 0 - 1000 ng/ml Buprenorphine (BUP) N 0 - 10 ng/ml Oxazepam (BZO) Faint line 0 - 300 ng/ml Cocaine (BAILEE) N 0 - 300 ng/ml Methamphetamine (mAMP) N 0 - 300 ng/ml Methylenedioxymethamphetamine (MDMA) N 0 - 500 ng/ml Morphine (MOP) N 0 - 25 ng/ml Methadone (MTD) N 0 - 300 ng/ml Oxycodone (OXY) N 0 - 300 ng/ml THC N 0 - 50 ng/ml x N 0 - 1000 ng/ml x N 0 - 1000 ng/ml x N 0 - 300 ng/ml x N 0 - 300 ng/ml Reason For [...] Status Risk Notes Problem Generalized anxiety disorder (25006052) Generalized anxiety disorder (F41.1) Active confirmed Problem Primary insomnia (6085540) Primary insomnia (F51.01) Active confirmed Problem Chronic posttraumatic stress disorder (245135072) Chronic posttraumatic stress disorder (F43.12) Active confirmed Problem Generalized anxiety disorder (18757469) ROSA (generalized anxiety disorder) (F41.1) Active confirmed Problem Severe major depression with psychotic features (08319414) Depression, major, recurrent, 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) Active confirmed Problem Mixed hyperlipidemia (952463296) Mixed hyperlipidemia (E78.2) 05/25/20 Active confirmed Problem Hypertension (99341738) Hypertension (I10) 04/11/20 19 Active confirmed Problem Lumbar post-laminectomy syndrome (748986169) Lumbar post-laminectomy syndrome (M96.1) 01/22/20 24 Active confirmed Vital Signs Heart Rate 80 /min 11/22/2024 Height-cm 190.50 cm 11/22/2024 Blood pressure diastolic 85 mm Hg 11/22/2024 Weight-kg 159.12 kg 11/22/2024 Height 75.00 in 11/22/2024 Blood pressure systolic 138 mm Hg 11/22/2024 Weight 350.8 lbs 11/22/2024 BMI 43.84 kg/m2 11/22/2024 Encounters Encounter Location Date Provider Diagnosis [facility] [employer] [facility] [address] [place] [address] 05/27/2024 Fadi Vita Depression, major, recurrent, severe with psychosis F33.3 ; Generalized anxiety disorder F41.1 and Chronic posttraumatic stress disorder F43.12 [facility] [employer] [facility] [address] [place] [address] 06/03/2024 Sally Shakira Major depressive disorder, recurrent severe without psychotic features F33.2 ; Generalized anxiety disorder F41.1 and Chronic posttraumatic stress disorder F43.12 [facility] [employer] [facility] [address] [place] [address] 06/17/2024 Sally Shakira Generalized anxiety disorder F41.1 ; Depression, major, recurrent, severe with psychosis F33.3 and Chronic posttraumatic stress disorder F43.12 [facility] [employer] [facility] [address] [place] [address] 07/01/2024 Fadi Vita Depression, major, recurrent, severe with psychosis F33.3 ; Generalized anxiety disorder F41.1 ; Chronic posttraumatic stress disorder F43.12 and Primary insomnia F51.01 [facility] [employer] [facility] [address] [place] [address] 07/02/2024 Sally Shakira Depression, major, recurrent, severe with psychosis F33.3 ; Chronic posttraumatic stress disorder F43.12 and Generalized anxiety disorder F41.1 [facility] [employer] [facility] [address] [place] [address] 07/10/2024 Sally Shakira Depression, major, recurrent, severe with psychosis F33.3 ; Generalized anxiety disorder F41.1 and Chronic posttraumatic stress disorder F43.[address] [address] 08/16/2024 Sally Rosenberg Depression, major, recurrent, severe with psychosis F33.3 ; Generalized anxiety disorder F41.1 and Chronic posttraumatic stress disorder F43.[address] [address] 08/19/2024 Fadi Vita Depression, major, recurrent, severe with psychosis F33.3 ; Generalized anxiety disorder F41.1 ; Chronic posttraumatic stress disorder F43.12 ; Primary insomnia F51.01 and ROSA (generalized anxiety disorder) F41.[address] [address] 08/30/2024 Sally Rosenberg Depression, major, recurrent, severe with psychosis F33.3 ; Generalized anxiety disorder F41.1 and Chronic posttraumatic stress disorder F43.[address] [address] 09/19/2024 Sally Rosenberg Encounter for screen ing for depression Z13.31 ; Depression, major, recurrent, severe with psychosis F33.3 ; Chronic posttraumatic stress disorder F43.12 and Generalized anxiety disorder F41.[address] [address] 09/30/2024 Fadi Vita Depression, major, recurrent, severe with psychosis F33.3 ; Lumbar post-laminectomy syndrome M96.1 ; Hypertension I10 ; Mixed hyperlipidemia E78.2 ; Generalized anxiety disorder F41.1 ; Chronic posttraumatic stress disorder F43.12 ; Primary insomnia F51.01 ; ROSA (generalized anxiety disorder) F41.1 ; Encounter for screening for depression Z13.31 and Benign essential HTN I10 [address] [address] 10/03/2024 Sally Rosenberg Chronic posttraumati c stress disorder F43.12 ; Generalized anxiety disorder F41.1 and Depression, major, recurrent, severe with psychosis F33.[address] [address] 11/22/2024 Fadi Gorman Chronic posttraumati c stress disorder F43.12 [...] lung J18.9 and Stable angina pectoris I20.89 [facility] [employer] [place] [address] [place] [address] 12/04/2024 Sally Rosenberg Depression, major, recurrent, severe with psychosis F33.3 ; Generalized anxiety disorder F41.1 ; Chronic posttraumatic stress disorder F43.12 and Encounter for screening for depression Z13.31 [facility] [employer] [place] [address] [place] [address] 02/12/2025 Fadi Gorman Generalized anxiety disorder F41.1 ; Depression, major, recurrent, severe with psychosis F33.3 and Chronic posttraumatic stress disorder F43.12 [facility] [employer] [place] [address] [place] [address] 07/04/2024 Fadi Gorman [facility] [address] [place] [address] 11/22/2024 Fadi Gorman Assessments Encounter Date Diagnosis (ICD Code) Assessment Notes Treatment Notes Treatment Clinical Notes Section Notes 05/27/2024 Depression, major, recurrent, severe with psychosis [...] Assessment: Patient reports adopted brother lives in [place], causing increased anxiety. - Plan: - Advise [...] and severity of PVCs. - Refer to manager house if symptoms worsen or do not improve. [...] - Plan: - Send all prescriptions to [facility]. - Ensure patient is aware of [...] F33.3) 09/30/2024 Mixed hyperlipidemia (ICD-10 - E78.2) 09/30/2024 Hypertension (ICD-10 - I10) 09/30/2024 Depression, major, recurrent, severe with psychosis (ICD-10 - F33.3) 09/30/2024 Lumbar post-laminectom y syndrome (ICD-10 - M96.1) 11/22/2024 Generalized anxiety disorder (ICD-10 - F41.1) [...] increasing duloxetine dosage. - Monitor anxiety symptoms. 10/03/2024 Generalized anxiety disorder (ICD-10 - F41.1) 10/03/2024 Chronic posttraumatic stress disorder (ICD-10 - F43.12) 09/19/2024 Encounter for screening for depression (ICD-10 - Z13.31) 09/19/2024 Depression, major, recurrent, severe with psychosis (ICD-10 - F33.3) 08/30/2024 Generalized anxiety disorder (ICD-10 - F41.1) 08/30/2024 Depression, major, recurrent, severe with psychosis (ICD-10 - F33.3) 08/30/2024 Chronic posttraumatic stress disorder (ICD-10 - F43.12) 09/19/2024 Chronic posttraumatic stress disorder (ICD-10 - F43.12) 10/03/2024 Depression, major, recurrent, severe with psychosis (ICD-10 - F33.3) 12/04/2024 Chronic posttraumatic stress disorder (ICD-10 - F43.12) 02/12/2025 Depression, major, recurrent, severe with psychosis (ICD-10 - F33.3) Patient reports depression and poor mood. Considering medication adjustment. - Consider increasing duloxetine dosage. - Monitor depression symptoms. 11/22/2024 Depression, major, recurrent, severe with psychosis (ICD-10 - F33.3) Patient reports depression and poor mood. Considering medication adjustment. - Consider increasing duloxetine dosage. - Monitor depression symptoms. 09/30/2024 Generalized anxiety disorder (ICD-10 - F41.1) 08/19/2024 Generalized anxiety disorder (ICD-10 - F41.1) [...] and severity of PVCs. - Refer to manager house if symptoms worsen or do not improve. [...] - Plan: - Send all prescriptions to [facility] in [place]. - Ensure patient is aware of any changes in medication regimen. - Confirm duloxetine will remain at 30 mg. Substance Use - Plan: - Continue to monitor and educate about potential interactions with prescribed medications. 06/17/2024 Chronic posttraumatic stress disorder (ICD-10 - F43.12) 05/27/2024 Generalized anxiety disorder (ICD-10 - F41.1) [...] Assessment: Patient reports adopted brother lives in [place], causing increased anxiety. - Plan: - Advise [...] Refill prescriptions to cover holiday period 06/03/2024 Generalized anxiety disorder (ICD-10 - F41.1) 06/03/2024 Chronic posttraumatic stress disorder (ICD-10 - [...] Assessment: Patient reports adopted brother lives in [place], causing increased anxiety. - Plan: - Advise [...] - Refill prescriptions to cover holiday period 07/02/2024 Generalized anxiety disorder (ICD-10 - F41.1) 07/01/2024 Chronic posttraumatic stress disorder (ICD-10 - [...] and severity of PVCs. - Refer to manager house if symptoms worsen or do not improve. [...] - Plan: - Send all prescriptions to [facility] in [place]. - Ensure patient is aware of any changes in medication regimen. - Confirm duloxetine will remain at 30 mg. Substance Use - Plan: - Continue to monitor and educate about potential interactions with prescribed medications. 07/10/2024 Chronic posttraumatic stress disorder (ICD-10 - F43.12) 08/16/2024 Chronic posttraumatic stress disorder (ICD-10 - F43.12) 12/04/2024 Encounter for screening for depression (ICD-10 - Z13.31) 11/22/2024 Encounter for screening for cardiovascular disorders (ICD-10 - Z13.6) 08/19/2024 Chronic posttraumatic stress disorder (ICD-10 - F43.12) 09/30/2024 Chronic posttraumatic stress disorder (ICD-10 - F43.12) 02/12/2025 Chronic posttraumatic stress disorder (ICD-10 - F43.12) 09/19/2024 Generalized anxiety disorder (ICD-10 - F41.1) 11/22/2024 Encounter for screening for depression (ICD-10 - Z13.31) 08/19/2024 Primary insomnia (ICD-10 - F51.01) Electronic Prior Authorization was requested for Belsomra 20 MG Tablet. Provider can order medication once approval received. 09/30/2024 Primary insomnia (ICD-10 - F51.01) 07/01/2024 Primary insomnia (ICD-10 - F51.01) Electronic [...] and severity of PVCs. - Refer to manager house if symptoms worsen or do not improve. [...] - Plan: - Send all prescriptions to [facility]. - Ensure patient is aware of any changes in medication regimen. - Confirm duloxetine will remain at 30 mg. Substance Use - Plan: - Continue to monitor and educate about potential interactions with prescribed medications. 09/30/2024 ROSA (generalized anxiety disorder) (ICD-10 - F41.1) 08/19/2024 ROSA (generalized anxiety disorder) (ICD-10 - F41.1) 11/22/2024 Hypertension (ICD-10 - I10) 11/22/2024 Primary insomnia (ICD-10 - F51.01) Patient [...] Monitor cardiac symptoms. - Consider follow-up with manager house if symptoms persist. 09/30/2024 Encounter for screening for depression (ICD-10 - Z13.31) 09/30/2024 Benign essential HTN (ICD-10 - I10) 06/03/2024 Other Client reports his Thanksgiving was [...] in to see a cardiiologist over at [facility]. He reports his home furnace quit working. He reports he has not had the energy to do much of anything. Therapist actively listened to client an dutilized a cognitive behavioral intervention to help client explore possible activities he can engage in to help pass the time while he is waiting to see the new manager house. PHQ=7 mild ROSA=13 moderate 08/19/2024 Other PTSD [...] new cardiac concerns. - Follow up with manager house as needed. Pain Management - Assessment: Patient [...] going on a 12 day cruise from [facility] to a port in [place]. Client focused on panic attacks and wants [...] PHQ=7 mild ROSA=7 mild 09/30/2024 Other London Shon presents with multiple medical concerns including cardiac [...] ensure accuracy, there may be errors, including squeegee finisher inaccuracies and misspellings of medication names. This [...] therapy session short. PHQ=17 moderately severe 02/12/2025 Other London Menendez, a male patient with a history [...] A sleep study has been scheduled at [facility] to further evaluate sleep issues. Plan: - Await results of scheduled sleep study - Discontinue Belsoa Headaches Assessment: Patient reports recent onset of [...] ensure accuracy, there may be errors, including squeegee finisher inaccuracies and misspellings of medication names. This document should not be considered a verbatim record, and any discrepancies should be verified with the provider. Plan Of Treatment Next Appt Details Provider Name:Fadi Gorman , 05/14/2025 01:00:00 PM, [address], [address], [place], [address], Insurance Providers Payer Name Payer Address Payer Phone Subscriber Number Group Number Insured Name Patient Relationship to Insured Coverage Start Date Coverage End Date Medicare-I l Medicare [address] [place] [address] [id number] LONDON MENENDEZ Self - patient is the insured [facility] [address] [place] [address] [id number] LONDON MENENDEZ Self - patient is the insured Medical (General) History Medical History History ICD Code Problems: Chronic post-traumatic stress disorder Generalized anxiety disorder Severe recurrent major depression withou t psychotic features , Surgical History Surgery Date(Month/Year) Any surgical history Removal of gallbladder (45232) Cataract surgery (19652) Other Tonsilectomy/adenoids
--- OUTSIDE RECORDS SUMMARY | 2025-05-02 12:30 | XMS_ITS | Encounter Summary ---
Author Organization [facility] Address [address] [place] [address] Phone Care Team Providers Care Television Program Director Name Role Phone Swathi Golden RN Unavailable Unavailab Heydi Razo MD Primary Care Provider Heydi Hood MD Primary Care Provider Nolvia Olivares MD, Butch Cross Primary Care Provide r Sheri Mac MD Unavailable Yessica Worthy MD Unavailable Tonny Yoon MD Unavailable [phone] Cortney García RN Unavailable Ajay Downs MD Unavailable [phone] Grey Hand RN Unavailable [phone] Kodi Griggs MD Unavailable Encounter Details Date [...] on file 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 Gender Identity Not on file Sexual [...] COVID: Suspected 06/14/2021 06/14/2021 06/14/2021 7:24 PM DRYING EQUIPMENT OPERATOR COVID: Suspected 01/16/2022 01/16/2022 01/16/2022 7:20 PM CDT COVID: Suspected 08/22/2022 08/22/2022 08/22/2022 9:42 AM DRYING EQUIPMENT OPERATOR COVID: Suspected 08/04/2024 08/04/2024 08/04/2024 3:41 PM DRYING EQUIPMENT OPERATOR COVID: Suspected 08/05/2024 08/05/2024 08/05/2024 1:23 PM DRYING EQUIPMENT OPERATOR Rhino/Enterovirus 11/08/2024 11/08/2024 11/15/2024 3:05 AM CDT documented as of this encounter Care Teams Television Program Director Relationship Specialty Start Date End Date Heydi Hood MD [address] [place] [address] PCP - General Family Medicine 03/03/21 06/13/21 Heydi Hood MD [address] [place] [address] PCP - General 06/14/21 06/16/21 Butch De Souza Jr., MD [address] [address] PCP - General Internal Medicine 06/17/21 Swathi Golden, RN Registered Nurse 04/15/19 01/18/23 Sheri Mac MD [address] [address] Endocrinology 06/17/21 12/09/24 Yessica Worthy MD [address] [facility] [address] [place] [address] Referring Physician Rheumatology 06/17/21 [place] [address] [place] [address] Consulting Physician Gastroenterology 06/17/21 Cortney García, [place] [address] [facility] [address] [place] [address] Press Operator [employer] 11/09/23 05/30/24 [place] [address] [facility] [address] [place] [address] Consulting Physician Cardiovascular Disease 07/09/24 Grey Hand, LEBRON [address] [place] [address] [facility] [address] [place] [address] Press Operator [employer] 08/12/24 [place] [address] [address] [facility] [address] [place] [address] Consulting Physician Pulmonary Disease 12/10/24 documented as of this encounter
--- OUTSIDE RECORDS SUMMARY | 2025-05-02 12:30 | XMS_ITS | Data Portability ---
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 Plan of Treatment Reminders Order Date Submit Date Provider Last Modified By Organization Details Last Modified Time Details Appointments None record ed. Lab None record ed. Referral None record ed. Procedures None record ed. Surgeries None record ed. Imaging None record ed. Medication Orders None record ed. Patient TargetsNo targets recorded. Patient InstructionsNo instructions recorded. Reason for Referral None Reported. Procedures Surgical History Date Name Laterality Status Provider Name and Address Organization Details Recorded Time 06/07/2022 Sleep Study completed João Valdovinos [facility] 06/08/20 22 14:30:53 Imaging Results None recorded. Procedure Notes None recorded. Medical Equipment None Reported. Medications Name Sig Start Date Stop Date Status Note LastModified by Organization Details LastModified Time atorvastatin 40 mg tablet TAKE 1 TABLET BY MOUTH EVERY DAY active Not Available Not Available No t Available silver sulfadiazine 1 % topical cream APPLY TO THE AFFECTED AREA TWICE DAILY OR WITH EACH DRESSING CHANGE active Not Available Not Available No t Available doxycycline hyclate 100 mg capsule active Not Available Not Available N ot Available quetiapine 300 mg tablet TAKE 1 AND 1/2 TABLETS BY MOUTH AT BEDTIME active Not Available Not Available No t Available azithromycin 250 mg tablet TAKE 1 TABLET BY MOUTH DAILY FOR 4 DAYS active Not Available Not Available N ot Available cephalexin 250 mg capsule active Not Available Not Available Not Available venlafaxine ER 150 mg capsule,exte nded release 24 hr TAKE 2 CAPSULES BY MOUTH DAILY active Not Available Not Available Not Available leflunomide 10 mg tablet active Not Available Not Available Not Available butalbital-a cetaminophen -caffeine 50 mg-325 mg-40 mg tablet TAKE 1 TABLET BY MOUTH EVERY 6 HOURS NEEDED FOR HEADACHE active Not Available Not Available No t Available levothyroxin e 25 mcg tablet active Not Available Not Available Not Available amiloride 5 mg tablet active Not Available Not Available No t Available potassium chloride ER 20 mEq tablet,exten ded release(part /cryst) TAKE 1 TABLET BY MOUTH EVERY DAY WITH FOOD active Not Available Not Available No t Available oxycodone-ac etaminophen 10 mg-325 mg tablet TAKE 1 TABLET BY MOUTH EVERY 12 HOURS NEEDED FOR PAIN active Not Available Not Available No t Available amlodipine 10 mg tablet TAKE 1 TABLET BY MOUTH EVERY DAY active Not Available Not Available No t Available benzonatate 100 mg capsule TAKE 1 CAPSULE BY MOUTH EVERY 8 HOURS active Not Available Not Available No t Available nitroglyceri n 0.4 mg sublingual tablet DISSOLVE ONE TABLET UNDER TONGUE NEEDED FOR CHEST PAIN EVERY 5 MINUTES DIRECTED active Not Available Not Available No t Available hydrochlorot hiazide 25 mg tablet TAKE 1 TABLET BY MOUTH EVERY DAY active Not Available Not Available No t Available methylpredni solone 4 mg tablets in a dose pack FOLLOW PACKAGE DIRECTIONS active Not Available Not Available N ot Available diflorasone 0.05 % topical ointment active Not Available Not Available Not Available cyclobenzapr ine 5 mg tablet active Not Available Not Available Not Available metoprolol tartrate 25 mg tablet active Not Available Not Available No t Available fenofibrate 160 mg tablet TAKE 1 TABLET BY MOUTH EVERY DAY active Not Available Not Available No t Available pregabalin 100 mg capsule active Not Available Not Available Not Available nebivolol 5 mg tablet TAKE 1 TABLET BY MOUTH EVERY DAY active Not Available Not Available No t Available oxycodone 10 mg tablet active Not Available Not Available No t Available Vascepa 1 gram capsule TAKE 2 CAPSULES BY MOUTH TWICE DAILY WITH FOOD. SWALLOW WHOLE AND DO NOT CHEW OR OPEN OR DISSOLVE OR CRUSH active Not Available Not Available No t Available Eliquis 5 mg tablet TAKE 1 TABLET BY MOUTH TWICE DAILY active Not Available Not Available No t Available naloxone 4 mg/actuation nasal spray active Not Available Not Available Not Available Trintellix 10 mg tablet TAKE 1 TABLET BY MOUTH DAILY active Not Available Not Available Not Available Ozempic 0.25 mg or 0.5 mg (2 mg/1.5 mL) subcutaneous pen injector INJECT 0.25 MG SUBCUTANEOU SLY WEEKLY FOR 2 MONTHS THEN INCREASE TO 0.5 MG WEEKLY active Not Available Not Available No t Available Ubrelvy 50 mg tablet active Not Available Not Available No t Available Ozempic 1 mg/dose (4 mg/3 mL) subcutaneous pen injector INJECT 1 MG UNDER THE SKIN EVERY 7 DAYS active Not Available Not Available No t Available Vitals Date Recorded Body height Body mass index (BMI) Body weight Provider Name and Address Organization Details Last Updated DateTime 06/07/2022 190.5 cm 42.6 kg/m2 087455 g João Valdovinos [place] [facility] 06/08/2022 14:30:13 Social History None recorded. Functional Status None recorded. Mental Status None recorded. Family History Nothing Reported. Medical History No medical history recorded. Past Encounters Encounter ID Performer Location Encounter Start Date Encounter Closed Date Diagnosis/Indication Diagnosis SNOMED-CT Code Diagnosis ICD10 Code Diagnosis IMO Codes Diagnosis Note [id number] [facility], [facility] [phone]) [phone] [place] [address] 06/07/2022 21:11:27 06/08/2022 14:27:19 Obstructive sleep apnea of adult 1576786787 103 G47.33 Health Concerns Section Related Observation LastModified by Organization Detai ls LastModified Time None Recorded Concern Status LastModified by Organization Details LastModified Time None Recorded Advance Directives Directive None Recorded Payers Insurance Date Sequence Insurance Name Policy Number Policy Fields Covered Member ID Fields Member ID Guarantor Name 06/04/2022 1 [place] A Men[place] [id number] [place] 06/20/2022 2 [place] [id number] [place] A Men[place] [id number] [place]
--- OUTSIDE RECORDS SUMMARY | 2025-05-02 12:30 | XMS_ITS | Clinical Summary ---
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 Phone Nolvia Olivares MD, [facility] vider Allergies Active Allergy Reactions Criticality Noted Date Comments Aripiprazole Nausea and Vomiting,Nausea Only,Unknown Medium 06/04/2014 Other reaction(s): CUT IN WORKER Dysfunction Hydroxychloroquine Eyes Water & Itch,Other (see [...] Radiculopathy, lumbosacral region 05/06/2019 Paroxysmal atrial fibrillation 04/11/2019 Overview (10/27/2020): Last Assessment & Plan: [...] Comments Blood Pressure 169/82 07/10/2023 7:30 AM [employer] Pulse 71 07/10/2023 7:30 AM [employer] Temperature 36.6 C (97.8 F) 07/10/2023 4:16 AM [employer] Respiratory Rate 22 07/10/2023 7:30 AM [employer] Oxygen Saturation 95% 07/10/2023 7:30 AM [employer] Inhaled Oxygen Concentration - - Weight 140.6 kg (310 lb) 07/02/2023 6:06 PM [employer] Height 191.8 cm (6' 3.5) 07/02/2023 6:06 PM [employer] Body Mass Index 38.24 07/02/2023 6:06 PM [employer] Plan of Treatment Health Maintenance Due Date Last Done Comments Colorectal Cancer Screening Colonoscopy (10 Years) 1958 Hepatitis C 1976 Pneumococcal Vaccine: 50+ Years (1 of 1 - PCV) 2008 Zoster Vaccines (1 of 2) 2008 Annual Medicare Wellness Visit 2023 COVID-19 Vaccine ( - season) 2025 Influenza Adult (#1) 2025 05/15/2020, 04/11/2019, 04/30/2018, Additional history exists DTaP, Tdap and Td Vaccines (3 - Td or Tdap) 05/16/2030 05/16/2020, 02/23/2015 RSV Immunization or 60+ Years (1 - 1-dose 75+ series) 2033 Hepatitis A Vaccines Aged Out No long er eligible based on patient's age to complete this topic Meningococcal B Vaccine Aged Out No l onger eligible based on patient's age to complete this topic Meningococcal Vaccine Aged Out No efrain rajesh eligible based on patient's age to complete this topic RSV Immunizations Under 20 Months Aged Out No longer eligible based on patient's age to complete this topic Insurance MEDICARE [facility] Care Teams 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
--- OUTSIDE RECORDS SUMMARY | 2025-05-02 12:30 | XMS_ITS | Clinical Summary ---
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 Ethchlorvynol Unknown 10/20/2023 Hydrocodone Agitation Low 12/10/2024 Hydroxychloroquine Other (See comments) Low 018 damaged eye muscles Methotrexate Nausea Only,Other (See comments) Medium 06/04/2014 Liver enzymes elevated Sumatriptan Nausea Only,Other (See comments) Medium 06/04/2014 Heart attack symptoms Zolpidem Tartrate Nausea And Vomiting,Mental status changes,Hallucination s Medium 06/04/2014 Medications apixaban (ELIQUIS) 5 mg tabletIndicatio ns:VTE Prophylaxis,PVC 's Take 1 tablet (5 mg total) by mouth 2 (two) times a day 02/02/20 23 Active MAGNESIUM OXIDE ORALIndications :hypomagnesemia Take 2 tablets by mouth nightly Pt is out of med, waiting for insurance/phar johnna to refill 07/05/19 24 Active hydrOXYzine (ATARAX) 50 mg tabletIndicatio ns:anxiety Take 1 tablet (50 mg total) by mouth nightly 11/26/19 24 Active isosorbide mononitrate ER (IMDUR) 60 mg 24 hr tabletIndicatio ns:prevention of anginal pain in coronary artery disease Take 1 tablet (60 mg total) by mouth nightly 01/03/20 24 Active albuterol HFA (PROVENTIL HFA,VENTOLIN HFA,PROAIR HFA) 90 mcg/actuation inhaler Inhale 2 puffs every 6 (six) hours as needed for wheezing 3 each 4 06/04/20 24 025 Active nitroglycerin (NITROSTAT) 0.4 mg SL tabletIndicatio ns:acute episode of anginal pain,acute myocardial infarction Place 1 tablet (0.4 mg total) under the tongue every 5 (five) minutes as needed for chest pain Active atorvastatin (LIPITOR) 40 mg tablet Take 1 tablet (40 mg total) by mouth daily 30 tablet 11 08/09/19 25 026 Active cloNIDine (CATAPRES) 0.1 mg tabletIndicatio ns:hypertension Take 1 tablet (0.1 mg total) by mouth 3 (three) times a day as needed for high blood pressure Take 1 time for BP >170/90 10/15/19 25 Active atogepant (Qulipta) 60 mg tabletIndicatio ns:Migraine Prevention Take 60 mg by mouth as needed (mir) Active diltiaZEM CD (CARDIZEM CD) 360 mg 24 hr capsuleIndicati ons:Paroxysmal atrial fibrillation (HCC),PVC's (premature ventricular contractions) Take 1 capsule (360 mg total) by mouth daily 30 capsule 10/24/19 25 Active fluticasone propionate (FLONASE) 50 mcg/actuation nasal sprayIndication s:Allergic Rhinitis,did not bring bottle 12/10/24 Administer 1 spray into each nostril daily as needed for rhinitis or allergies Active polyethylene glycol (MIRALAX) 17 gram/dose bulk powderIndicatio ns:constipation Take 17 g by mouth nightly Active ciclopirox 1 % shampooIndicati ons:Dandruff Apply 1 Application topically 2 (two) times a week SHAMPOO SCALP 1-2 TIMES A WEEK. APPLY FOR 3-5 MINUTES THEN WASH OFF. 11/02/19 25 Active ketoconazole (NIZORAL) 2 % creamIndication s:rash/inflamma tion Apply 1 Application topically 2 (two) times a day as needed for itching, irritation or rash 11/05/19 25 Active losartan (COZAAR) 25 mg tabletIndicatio ns:hypertension Take 1 tablet (25 mg total) by mouth nightly 11/08/19 25 Active QUEtiapine (SEROquel) 300 mg tablet Take 1 tablet (300 mg total) by mouth nightly 30 tablet 11/15/19 25 Active Additional Information Patient taking differently:300 mg oral Nightly,Indications: Depression Treatment Adjunct, Generalized Anxiety Disorder, Informant: Self, Reported on 04/10/2025 linaCLOtide (LINZESS) 145 mcg capsule Take 1 capsule (145 mcg total) by mouth daily 90 capsule 1 11/20/19 25 Active potassium chloride ER 10 mEq CR tabletIndicatio ns:pt states only takes with food otherwise can't not take Take 2 tablet/capsule (20 mEq total) by mouth daily with breakfast 180 tablet 1 12/12/19 25 Active Additional Information Patient taking differently:20 mEq oral Daily with breakfast,Indications: hypokalemia prevention, pt states only takes with food otherwise can't not take, Informant: Self, Reported on 04/10/2025 hydroCHLOROthia zide (HYDRODIURIL) 25 mg tabletIndicatio ns:pt states is going to pharmacy today to start Take 1 tablet (25 mg total) by mouth daily 90 tablet 1 12/12/19 25 Active cyclobenzaprine (FLEXERIL) 10 mg tablet Take 1 tablet (10 mg total) by mouth 3 (three) times a day as needed for muscle spasms 90 tablet 1 12/25/19 25 Active senna-docusate (PERICOLACE) 8.6-50 mgIndications:c onstipation Take 1 tablet by mouth daily 30 tablet 12/25/19 25 Active metoprolol XL (TOPROL-XL) 50 mg extended release tabletIndicatio ns:Paroxysmal atrial fibrillation (HCC),PVC's (premature ventricular contractions) TAKE 1 TABLET(50 MG) BY MOUTH TWICE DAILY 60 tablet 01/10/20 25 Active Additional Information Patient taking differently:50 mg oral 2 times daily,Indications: Ventricular Arrhythmias, hypertension, Informant: Self, Reported on 04/10/2025 clonazePAM (KlonoPIN) 0.5 mg tabletIndicatio ns:anxiety Take 1 tablet (0.5 mg total) by mouth 2 (two) times a day as needed for anxiety Active suvorexant (Belsomra) 20 mg tabletIndicatio ns:Insomnia Take 1 tablet (20 mg total) by mouth as needed (insomnia) 07/05/[address] (CYMBALTA) 60 mg capsuleIndicati ons:Anxiety with Depression,PTSD Take 1 capsule (60 mg total) by mouth nightly 02/25/20 25 Active cyanocobalamin, vitamin B-12, (VITAMIN B-12 ORAL)Indication s:supplement Take 2 tablets by mouth every morning Active fenofibrate (TRIGLIDE) 160 mg tablet 03/13/20 25 Active traMADoL (ULTRAM) 50 mg tablet Take 1 tablet (50 mg total) by mouth 2 (two) times a day as needed for pain 60 tablet 03/21/20 25 Active naloxone (NARCAN) 4 mg/actuation spray,non-aeros ol Administer 1 spray into affected nostril(s) as needed for opioid reversal or respiratory depression Call 911. Administer a single spray in one nostril. Repeat every 3 minutes as needed if no or minimal response. 2 each 03/21/20 25 Active flecainide (TAMBOCOR) 50 mg tablet Take 1 tablet (50 mg total) by mouth 2 (two) times a day 60 tablet 04/01/20 25 026 Active aspirin 81 mg chewable tabletIndicatio ns:prevention of thrombosis Take 1 tablet (81 mg total) by mouth every morning 07/20/19 24 025 Discontinued chlorthalidone (HYGROTON) 25 mg tabletIndicatio ns:hypertension Take 1 tablet (25 mg total) by mouth every morning 025 Discontinued famotidine (PEPCID) 20 mg tabletIndicatio ns:Dyspepsia Prevention,Hear tburn Prevention Take 1 tablet (20 mg total) by mouth 2 (two) times a day 025 Discontinued mirtazapine (REMERON) 30 mg tabletIndicatio ns:Post Traumatic Stress Disorder Take 1 tablet (30 mg total) by mouth nightly as needed (PTSD) 025 Discontinued rimegepant (Nurtec ODT) tablet,disinteg ratingIndicatio ns:Migraine,Horacio ned Prevention Take 1 tablet (75 mg total) by mouth as needed (migraines) 025 Discontinued Active Problems Problem Noted Date [...] (premature ventricular contraction) 10/17/19 Assessment & Plan (04/01/2025 4:16 PM CDT): -Symptomatic PVCs -PVC ablation 03/04/2025 unsuccessful -Will start flecainide (recent normal stress test, no LVH). -Flecainide 50 mg BID with EKG in 1 week -If tolerating well and QRS duration stable on EKG, will plan to increase flecainide 100 mg BID followed by exercise treadmill test -Continue metoprolol succinate 50 mg BID Assessment & Plan (03/05/2025 9:22 AM CDT): [...] -s/p PVC ablation 03/04 w/ Dr. Miles waters sites w/o swelling/bleeding -resume home eliquis, metop, dilt -monitor on tele -EP eval in AM Assessment & Plan (10/23/2024 2:08 PM CDT): Sympomatic Main drivers of his conditions overall-ablation is being considered NSVT (nonsustained ventricular tachycardia) 10/01 Chronic stable angina 07/11/2024 Assessment & Plan (10/23/2024 2:08 PM CDT): Continue to take Ranexa/imdur Follows with cardiology Assessment & Plan (08/19/2024 6:36 AM COURSE INSTRUCTOR): Continue to take Ranexa/imdur Follows with cardiology Assessment & Plan (07/11/2024 1:43 PM COURSE INSTRUCTOR): Continue to take Ranexa/imdur Follows with cardiology Lumbar post-laminectomy syndrome 01/22/2024 Spinal stenosis of lumbar re gion with neurogenic claudication 01/08/2024 Assessment & Plan (10/23/2024 2:08 PM CDT): Will continue to follow up with PEE Continue roxicodone prn Assessment & Plan (08/19/2024 6:36 AM COURSE INSTRUCTOR): Seeing PEE, however several things continue to delay his [...] and establishing or updating healthcare power of banking attorney document and providing our office with [...] and establishing or updating healthcare power of banking attorney document and providing our office with [...] and establishing or updating healthcare power of banking attorney document and providing our office with a copy. PTSD (post-traumatic stress disorder) 08/22/2022 Assessment & Plan (08/19/2024 6:36 AM COURSE INSTRUCTOR): Continue medications as prescribed, cymbalta seroquel Assessment & Plan (10/20/2022 1:30 PM CDT): Will contact Saba Dougherty Psychophysiological insomnia 08/22/2022 Assessment & Plan (09/05/2022 10:17 AM COURSE INSTRUCTOR): Having issues with sleep Has issues with the PTSD Feels like it is stable Chronic, continuous use of opioids 08/16/2022 Assessment [...] specialists Assessment & Plan (06/22/2023 7:07 PM COURSE INSTRUCTOR): His improved sense of well-being following the [...] fibrosis. Assessment & Plan (06/09/2022 4:31 PM COURSE INSTRUCTOR): Assessment & Plan (09/16/2021 11:09 AM CDT): Monitor LFTs Cervical spinal stenosis 05/21/2020 Assessment & Plan (10/23/2024 2:12 PM CDT): Following NSY Takes roxicodone Assessment & Plan (07/11/2024 1:43 PM COURSE INSTRUCTOR): Seeing PEE, surgery latter this month Spondylosis of cervical joint without myelopathy 05/21/2020 Chronic pain syndrome 05/13/2019 Prediabetes 04/18/2019 Assessment & Plan (09/16/2021 11:06 AM CDT): Continue ozempic, increase dosage Assessment & Plan (07/16/2021 10:52 AM COURSE INSTRUCTOR): Continue taking ozempic as prescribed by endocrinology [...] dose Assessment & Plan (06/17/2021 8:03 AM COURSE INSTRUCTOR): Continue stsatin Assessment & Plan (05/14/2020 4:21 PM COURSE INSTRUCTOR): Low fat low chol diet Continue statin, [...] Ranexa Assessment & Plan (07/11/2024 1:42 PM COURSE INSTRUCTOR): Has difficulty controlling this at times Continue HCTZ, metoprolol, Ranexa Assessment & Plan (05/24/2024 10:07 AM COURSE INSTRUCTOR): Ongoing. Do not use OTC medications with [...] Continue Amlodipine and Sotalol. Rheumatoid arthritis [facility] with negative rheumatoid factor 12/04/2017 Assessment & Plan (10/23/2024 2:05 PM CDT): Continue leflunomide Assessment & Plan (08/19/2024 6:35 AM COURSE INSTRUCTOR): Continue leflunomide Assessment & Plan (07/11/2024 1:42 PM COURSE INSTRUCTOR): Continue leflunomide Assessment & Plan (10/23/2023 1:22 PM CDT): Continue leflunomide Assessment & Plan (10/20/2022 1:29 PM CDT): Chronic stable Well controlled Continue current prescribed medications at current dose Assessment & Plan (08/16/2022 10:10 AM COURSE INSTRUCTOR): Continue follow-up with rheum and pain management Assessment & Plan (06/17/2021 9:04 AM COURSE INSTRUCTOR): Holding off on medications because the class of drugs he may require have been showing to lower peoples protection again COVID Will continue to follow-up with Rheum Assessment & Plan (12/04/2017 1:20 PM CDT): Plans to initiate Rituximab Therapy (Rheumatology to write orders including pre-medications). Conitnue Kareyjuliann Paroxysmal atrial fibrillation 12/04/2017 Assessment & Plan (04/01/2025 4:16 PM CDT): -S/p ablation x 2 (Dr. Muñiz) last 07/2019 -Continue Eliquis 5 mg BID Assessment & Plan (03/05/2025 9:22 AM CDT): -cont Eliquis, metop, diltiazem, continue Assessment & Plan (03/04/2025 6:22 PM CDT): -cont Eliquis, metop, diltiazem Assessment & Plan (10/23/2024 2:06 PM CDT): Seeing cardiology Given one month supplies of medications, will send in 90 days to mail service tomorrow Assessment & Plan (08/19/2024 6:35 AM COURSE INSTRUCTOR): Chronic stable Well controlled Continue current prescribed medications metoprolol and diltiazem at current dose Assessment & Plan (07/11/2024 1:45 PM COURSE INSTRUCTOR): Chronic stable Well controlled Continue current prescribed medications metoprolol and diltiazem at current dose Assessment & Plan (04/25/2024 3:27 PM CDT): Chronic stable Well controlled Continue current prescribed medications metoprolol and diltiazem at current dose Assessment & Plan (02/02/2024 10:14 AM CDT): Intermittent. Currently under evaluation by Cardiology. Patient advised to notify patient's librarian a recent ED visit and schedule follow-up [...] dose Assessment & Plan (06/17/2021 8:17 AM COURSE INSTRUCTOR): S/p abalation Has not had issues with [...] seroquel Assessment & Plan (08/19/2024 6:35 AM COURSE INSTRUCTOR): Weight is stable Monitor Related to his seroquel Assessment & Plan (07/11/2024 1:45 PM COURSE INSTRUCTOR): Weight is stable Monitor Related to his seroquel Assessment & Plan (05/24/2024 10:08 AM COURSE INSTRUCTOR): Work on attempts to lose weight about [...] inspire Assessment & Plan (07/11/2024 1:25 PM COURSE INSTRUCTOR): 10 years ago was dx, his CPAP got recalled never able to get it back Was told perhaps he could get inspire Resolved Problems Problem Noted Date Diagnosed Date Resolved Date NSVT (nonsustained ventricular tachycardia) 10/16/2024 10/23/2024 Dizziness 07/31/2024 08/16/2024 NSVT (nonsustained ventricular tachycardia) 07/30/2024 08/16/2024 Ascending aortic aneurysm, u nspecified whether ruptured 07/11/2024 07/11/2024 Assessment & Plan (07/11/2024 1:44 PM COURSE INSTRUCTOR): Continue medications as prescribed stable Class 3 [...] 10/23/2023 Assessment & Plan (09/05/2022 10:19 AM COURSE INSTRUCTOR): No longer having chest pain Feels like this is improved Is following up with cardiology Atypical chest pain 08/22/2022 10/21/19 23 Hypertensive urgency 08/22/2022 023 Status post lumbar spine ruthy valery for [...] 6 weeks with AP/Flexion/Extension Lumbar spine films. 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 05/13/2019 08/16/2022 Radiculopathy, lumbosacral region 05/06/2019 10/23/2024 Vitamin B12 deficiency 08/07/201808/16 Intractable migraine with au ra without status migrainosus 05/28/2018 08/16/2022 Insulin resistance 05/01/2018 Assessment & Plan (06/17/2021 9:04 AM COURSE INSTRUCTOR): Will monitor Hgba1c and sugar levels Assessment & Plan (05/14/2020 4:20 PM COURSE INSTRUCTOR): Diet and exercise Check hba1c Assessment & [...] HLD Assessment & Plan (09/05/2022 10:16 AM COURSE INSTRUCTOR): Monitor BMI Assessment & Plan (08/16/2022 10:09 AM COURSE INSTRUCTOR): Monitor weight Has HTN, HLD, ZAMORA Assessment & Plan (09/16/2021 11:07 AM CDT): Working on weight loss Will increase ozempic Assessment & Plan (07/16/2021 10:53 AM COURSE INSTRUCTOR): Continue to monitor weight Assessment & Plan (06/17/2021 9:10 AM COURSE INSTRUCTOR): Will try wegovy, should help with weight [...] Encounters Date Type Department Care Team Description 05/02/2025 Telephone [facility] Medicine Cardiology [address] [place] [address] [place] [address] Estuardo Aquino MD 04/17/2025 Results Follow-Up [facility] [address] [place] [address] [place] [address] Hyacinth Burgess NP ECG 12 lead 04/10/2025 9:30 AM CDT Office Visit [facility] [address] [place] [address] [address], [place] [address] Genesis Aguirre MD Obstructive sleep apnea syndrome (Primary Dx); Hypersomnia with sleep apnea; Morbid obesity with BMI of 40.0-44.9, adult (HCC) 04/01/2025 3:00 PM CDT Office Visit [facility] Medicine Cardiology [address] [place] [address] [place] [address] Hyacinth Burgess NP PVC (premature ventricular contraction) (Primary Dx); Encounter for monitoring flecainide therapy; Paroxysmal atrial fibrillation (HCC) 04/01/2025 2:30 PM CDT Ancillary Procedure [facility] Medicine Cardiology Replaced by [facility] [facility] [facility] [address] [place] [address] [place] [address] Encounter for loop recorder check; NSVT (nonsustained ventricular tachycardia) (HCC) 03/21/2025 1:00 PM CDT Office Visit [facility] [address] [place] [address] [place] [phone] Yenni Do NP Primary hypertension (Primary Dx); NSVT (nonsustained ventricular tachycardia) (HCC); Rheumatoid arthritis of multiple sites with negative rheumatoid factor (HCC); Chronic, continuous use of opioids; Psychophysiologica l insomnia; Chronic pain syndrome; Weight gain 03/20/2025 Nurse Triage [address] [place] [phone] Butch De Souza Jr., MD 03/14/2025 Telephone [facility] [address] [facility] [address] [place] [address] Tsering Rivera RN 03/14/2025 Nurse Triage [address] [place] [phone] Butch De Souza Jr., MD 03/10/[address] [place] [phone] Butch De Souza Jr., MD Medication Request 03/04/2025 7:33 AM CDT Anesthesia Event [facility] Electrophysiology Lab [address] [place] [address] Tatiana Tillman MD Montgomery, Andrea J., NP 03/04/2025 7:30 AM CDT - 03/04/2025 3:50 PM CDT Surgery [facility] Electrophysiology Lab [address] [place] [address] Estuardo Aquino MD ABLATION VENTRICULAR TACHYCARDIA (VT) INCLUDES 3D MAPPING (WHEN USED) [address] 03/04/2025 6:14 AM CDT - 03/05/2025 10:13 AM CDT Hospital Encounter [address] [phone] Estuardo Aquino MD Neilson, Nathan Andrew, MD NSVT (nonsustained ventricular tachycardia) (HCC); PVC (premature ventricular contraction) Discharge Disposition: Discharge to home or self care 02/28/2025 9:30 AM CDT Pre-Admission Testing [facility] for Preoperative Assessment and Planning [facility] Advanced Medicine ([facility]) [address] [place] [address] Preoperative testing (Primary Dx); NSVT (nonsustained ventricular tachycardia) (HCC); PVC (premature ventricular contraction) 02/25/2025 9:47 AM CDT Anesthesia Event [facility] Radiology [address] [place] [address] Basia Tracey MD 02/25/2025 7:12 AM CDT - 02/25/2025 11:59 PM CDT Hospital Encounter [facility] Radiology [address] [place] [address] Basia Tracey MD Reynolds, Troy Wayne, CRNA NSVT (nonsustained ventricular tachycardia) (HCC) Discharge Disposition: Discharge to home or self care 02/21/2025 Telephone [facility] Medicine Cardiology Replaced by [facility] 8th [place] [address] [place] [address] Estuardo Aquino MD 02/14/2025 Orders Only [facility] Health Information Management [address] [place] [address] Scanning, Provider 02/12/2025 7:00 PM CDT - 02/12/2025 11:59 PM CDT Hospital Encounter [facility] [address] [place] [phone] Obstructive sleep apnea syndrome Discharge Disposition: Discharge to home or self care 02/10/2025 11:30 AM CDT Office Visit [facility] [address] [address] [place] [address] Benjamin Fairbanks MD S/P lumbar spine operation (Primary Dx) 02/10/2025 [facility] IP Outreach [address] [address] Mona Green MA 01/30/2025 10:30 AM CDT Office Visit [facility] [address] [facility] [address] [place] [phone] Genesis Aguirre MD Hypersomnia with sleep apnea (Primary Dx); Obstructive sleep apnea syndrome; Morbid obesity with BMI of 40.0-44.9, adult (HCC) from Last 3 Months Immunizations Immunization Administration Dates Next Due DTaP 05/16/2020,02/23/2015 Influenza, Quadrivalent, Rec ombinant, Egg Free, Preservative Free, Intramuscular 05/15/2020 Influenza, Quadrivalent, Spl it, Preservative Free, Intramuscular 05/15/2020,04/11/2019 Influenza, Trivalent, High D ose, Split, Preservative Free, Intramuscular 04/30/2018 Influenza, Trivalent, IM (MDV) 04/21/2017 Influenza, Unspecified 08/16/2024(Deferr ed: Patient Refused),08/16/2024(Deferred: Patient Refused),05/03/2024(Deferred: Patient Refused),04/25/2024(Deferred: Patient Refused),05/03/2023(Deferred: Patient Refused),03/07/2023(Deferred: Patient Refused),07/22/2022(Deferred: Patient Refused),07/22/2022(Deferred: Patient Refused),05/15/2022(Deferred: Patient Refused),05/13/2022(Deferred: Patient Refused),05/03/2022(Deferred: Patient Refused),05/03/2022(Deferred: Patient Refused),05/03/2022(Deferred: Patient Refused),06/17/2021(Deferred: Patient Refused),05/15/2020,04/11/2019, 017 Tdap 05/16/2020,02/23/2015 ZOSTER Recombinant 03/07/2023(Deferred: Patient Refused),06/17/2021(Deferred: [...] TACHYCARDIA (VT) INCLUDES 3D MAPPING (WHEN USED) [address]; Surgeon: Estuardo Aquino MD; Location: [facility] EP [facility]; Service: Cardiovascular; Laterality: N/A; Medical devices from this surgery are in the Medical Devices section. CARDIAC ELECTROPHYSIOLOGY PROCEDURE 03/04/2025 N/A Procedure: LEFT HEART CATHETERIZATION TRANSEPTAL PUNCTURE (+) [id number]; Surgeon: Estuardo Aquino MD; Location: [facility] EP [facility]; Service: Cardiovascular; Laterality: N/A; Medical [...] years ago covid in hopsital History of COVID-2021; hospit alized a little over a week [...] drink = 0.6 oz pur e alcohol) [facility] Utilities Answer Date Recorded In the past [...] often do you attend chur ch or christian services? Never 11/11/2024 Do you belong to any clubs o r organizations such as buddhist groups, unions, fraternal or athletic groups, or [...] any time in the past 12 m [facility], were you homeless or living in a [...] on file Legal Sex Male 11:58 PM COURSE INSTRUCTOR Gender Identity Not on file Sexual Orientation Not on file Obstetrics History Last Filed Vital Signs Vital Sign Reading Time Taken Comments Blood Pressure 120/71 04/10/2025 9:26 AM CDT Pulse 73 04/10/2025 9:26 AM CDT Temperature 36.2 C (97.2 F) 03/21/2025 1:02 PM CDT Respiratory Rate 16 03/05/2025 8:48 AM CDT Oxygen Saturation 97% 04/10/2025 9:26 AM CDT Inhaled Oxygen Concentration - - Weight 160.8 kg (354 lb 6.4 oz) 04/10/2025 9:26 AM CDT Height 190.5 cm (6' 3) 04/10/2025 9:26 AM CDT Body Mass Index 44.3 04/10/2025 9:26 AM CDT Plan of Treatment Health Maintenance Due Date Last Done Comments Influenza Vaccine (#1) 2025 , 05/15/2020, 05/15/2020, Additional history exists Well Visit 65+ 10/23/2025 10/23/2024, 04/2 08/2023, 10/20/2022, Additional history exists Zoster Vaccine (1 of 2) 10/23/2025 Post poned from 2008 (Insurance / Financial) Fall Risk Assessment 03/05/2026 03/05/2025, 10/23/2024, 10/23/2023, Additional history exists Depression Screening 03/21/2026 03/21/2025, 11/19/2024, 11/08/2024, Additional history exists Prostate Cancer Screening-PSA 10/23/2026 10/23/2024, 08/11/2022, 07/16/2021 Colon Cancer Screening-Colonoscopy 11/16/2028 11/17/2023, 11/17/2023 DTaP/Tdap/Td Vaccine (5 - Td or Tdap) 05/16/2030 05/16/2020, 05/16/2020, 02/23/2015, Additional history exists Colon Cancer Screening-CT Colonography Discontinued 11/17/2023, 11/17/2023 Colon Cancer Screening-DNA Stool Discontinued 11/17/2023, 11/17/2023 Colon Cancer Screening-FIT Discontinued 11/17/2023, Colon Cancer Screening-Sigmoidoscopy Discontinued 11/17/2023, 11/17/2023 Hepatitis C Screening Completed 07/19/2024 , 01/10/2024, 04/17/2014 Hepatitis B Screening Completed 10/23/2024 Pneumococcal vaccine 65+ Discontinued Goals Goal Patient [...] of instructions. Medical Devices Implanted Type Area Decorative Engraver Device Identifier Shelf Expiration Date Model / Serial / Lot [employer] Vascade Mvp 6-12fr Venous Closure [id number] - [id number] - [id number] Implanted:Qty: 1 on 03/04/2025 by Genaro Joseph MD at [facility] Collagen Left: Femoral Vein [employer] 11/25/2026 800-612 C-10U / [id number] / [id number] [employer] Vascade Mvp 6-12fr Venous Closure [id number] - [id number] - [id number] Implanted:Qty: 1 on 03/04/2025 by Genaro Joseph MD at [facility] Collagen Left: Femoral Vein [employer] 11/25/2026 800-612 C-10U / [id number] / [id number] [employer] Vascade Mvp 6-12fr Venous Closure [id number] - [id number] - [id number] Implanted:Qty: 1 on 03/04/2025 by Genaro Joseph MD at [facility] Collagen Left: Femoral Vein [employer] 11/25/2026 800-612 C-10U / [id number] / [id number] [employer] Vascade Mvp 6-12fr Venous Closure [id number] - [id number] - [id number] Implanted:Qty: 1 on 03/04/2025 by Genaro Joseph MD at [facility] Collagen Left: Femoral Vein [employer] 11/25/2026 800-612 C-10U / [id number] / [id number] Implantable Loop Recorder Implantable Loop Recorder Chest Wall Loop Recorder Chest Wall [employer] [id number] / [id number] / Description:[email or web address] ^ MRI safety information Lumbar Spine Fusion Instrumentation Spine Lumbar Shoulder Components Right: Shoulder Knee Components Bilateral: Knee Procedures Procedure Name Priority Date/Time Associated Diagnosis Comments ECG 12-LEAD Routine 04/16/2025 10:27 AM CDT Palpitations DEVICE CHECK - IN OFFICE Routine 04/01/2025 1:33 PM CDT Encounter for loop recorder check NSVT (nonsustained ventricular tachycardia) (HCC) POCT ACTIVATED CLOTTING TIME, HIGH RANGE Routine [...] AM CDT NSVT (nonsustained ventricular tachycardia) (HCC) TN AN PROCEDURE PLACEHOLDER Routine 02/25/2025 11:01 AM CDT TN AN ELECTIVE ENDOTRACHEAL AIRWAY Routine 02/25/2025 11:01 AM CDT SCAN - RADIOLOGY/IMAGING 02/14/2025 PSG (COMPLEX) Routine 02/13/2025 7:58 AM CDT Obstructive sleep apnea syndrome PSA SCREEN Routine 10/23/2024 2:14 PM CDT Encounter for Medicare annual wellness exam HEPATITIS PANEL, ACUTE Routine 9:26 AM COURSE INSTRUCTOR Hypokalemia Elevated LFTs HM COLONOSCOPY Routine 11/17/2023 from Last 3 Months or Most Recently Relevant to Health Maintenance Results * ECG 12 lead (04/16/2025 10:27 AM CDT) us Hyacinth Burgess LAST GREASER ECG ORDERABLES Edited Re sult - Final * DEVICE CHECK - IN OFFICE (04/01/2025 1:33 PM CDT) Anatomical Region Laterality Modality Other 04/01/2025 04/01/2025 Narrative 04/01/2025 4:03 PM CDT In-clinic interrogation of ILR Incision Site: Left pectoral site without inflammation or adherence Device Functionality Device: Normal function Battery status: 59.5% Interrogation Presenting rhythm: VS 75 bpm Heart rate histograms: stable Episodes 7 symptom episodes, EGMs suggest bigeminy and SR with PVCs AT/AF [employer]: 0% Programming Changes: No changes Plan: Follow up as recommended by LAST GREASER. Requested pt be released to our clinic on Tuee website. Procedure Note Dario Zarate MD - 04/01/2025 In-clinic interrogation of ILR Incision Site: Left pectoral site without inflammation or adherence Device Functionality Device: Normal function Battery status: 59.5% Interrogation Presenting rhythm: VS 75 bpm Heart rate histograms: stable Episodes 7 symptom episodes, EGMs suggest bigeminy and SR with PVCs AT/AF [employer]: 0% Programming Changes: No changes Plan: Follow up as recommended by LAST GREASER. Requested pt be released to ourinic on Tuee website. Estuardo Aquino MD CV CARDIAC SERVI BALTA PROCEDURES Final Result * (ABNORMAL) POC Activated Clotting Time, High Range (03/04/2025 1:27 PM CDT) ACT 175(H) 87 - 138 sec POC Device Number [id number] [facility] Blood 03/04/2025 1:27 PM CDT 03/04/2025 1:27 PM CDT Estuardo Aquino MD LAB BLOOD ORDERA BLES Final Result [facility] Department [place] [address] * ABLATION VT, LEFT HEART CATHETERIZATION TRANSEPTAL [...] Catheter-based radiofrequency ablation was performed using a Musikki power generator. Target power was 30 Davis. [...] Cardiac radioablation Procedure [x] VT Ablation procedure (82127) -- includes 3D mapping [] +LA/CS pacing (73090) [x] +Intracardiac ultrasound (36048) [] +Transseptal (68671) [x] +IV drug (44197) [] +Other Arrhythmia (91893) Preoperative Cardiac Imagin02/25/25 Cardiac MRI Estuardo Aquino MD CV ELECTROPHYSIO LOGY PROCS Final Result * (ABNORMAL) POC Activated Clotting Time, High Range (03/04/2025 9:39 AM CDT) ACT 321(H) 87 - 138 sec POC Device Number [id number] [facility] Blood 03/04/2025 9:39 AM CDT 03/04/2025 9:39 AM CDT Estuardo Aquino MD LAB BLOOD ORDERA BLES Final Result [facility] Department [place] [address] * (ABNORMAL) POC Activated Clotting Time, High Range (03/04/2025 9:09 AM CDT) ACT 348(H) 87 - 138 sec POC Device Number [id number] [facility] Blood 03/04/2025 9:09 AM CDT 03/04/2025 9:09 AM CDT Estuardo Aquino MD LAB BLOOD ORDERA BLES Final Result [facility] [place] [address] * (ABNORMAL) POC Activated Clotting Time, High Range (03/04/2025 8:58 AM CDT) Pathologist [facility] [place] ACT 222(H) 87 - 138 sec POC Device Number [id number] [facility] Blood 03/04/2025 8:58 AM CDT 03/04/2025 8:58 AM CDT us Estuardo Aquino MD LAB BLOOD ORDERA BLES Final Result Performing Organization Address City/[facility]/ZIP Co de Phone Number [facility] [place] [address] * (ABNORMAL) POC Activated Clotting Time, High Range (03/04/2025 8:49 AM CDT) [facility] ACT 195(H) 87 - 138 sec POC Device Number [id number] [facility] Blood 03/04/2025 8:49 AM CDT 03/04/2025 8:49 AM CDT us Estuardo Aquino MD LAB BLOOD ORDERA BLES Final Result [facility] [place] [address] * ECG 12 lead (03/04/2025 7:16 AM CDT) [facility] Ventricular Rate EKG/Min 72 BPM [facility] Atrial Rate 72 BPM [facility] TN-Interval (MSEC) 160 ms [facility] QRS-Interval (MSEC) 90 ms [facility] QT-Interval (MSEC) 496 ms [facility] QTc 543 ms [facility] P [place] 75 degrees [facility] R [place] 19 degrees [facility] T [place] 14 degrees [facility] Diagnosis Sinus rhythm with frequent Premature ventricular complexes in a pattern of bigeminy Nonspecific ST abnormality Prolonged QT Abnormal ECG When compared with ECG of 28-FEB-2025 08:29, PREVIOUS ECG IS PRESENT Confirmed by KORINA ANDRADE M.D ([id number]) on 03/05/2025 3:35:33 PM [facility] 03/04/2025 7:16 AM CDT 03/05/2025 3:35 PM CDT Estuardo Aquino MD ECG ORDERABLES Final Result [facility] * Urinalysis reflex to microscopic (02/28/2025 9:25 AM CDT) Color, ur Yellow Yellow Clarity, ur Clear Clear [facility] Specific gravity, ur 1.029 1.003 - 1.030 [facility] pH, urine 6.0 [facility] Comment: Interpretive Data U rine pH is affected by diet, medications, systemic acid-base disturbances, and renal tubular function. pH may affect urinary stone formation. For example, urine pH below 6.0 may help reduce the tendency for calcium phosphate stones and pH greater than 6.0 may reduce the tendency for uric acid stone formation. Source: [facility] Current Interpretive Data was last revised on 2017 Protein, ur ql Trace Negative [facility] Glucose, ur ql Negative Negative [facility] Ketones, ur Negative Negative [facility] Bilirubin, ur Negative Negative [facility] Blood, ur Negative Negative [facility] Urobilinogen, ur <2.0 <2.0 mg/dL [facility] Nitrite, ur Negative Negative [facility] Leukocyte esterase, ur Negative Negative [facility] UA reflex comment Reflex conditions for microscopic UA not met. [facility] Urine 02/28/2025 9:25 AM CDT 02/28/2025 9:51 AM CDT Estuardo Aquino MD LAB URINE ORDERA BLES Final Result Performing Organization Address City/[facility]/ZIP Co de Phone Number [facility] Department [place] [address] * eGFR (02/28/2025 9:23 AM CDT) Pathologist [facility] [place] eGFR 67 >=60 mL/min/1. 73 m2 Comment: [...] MD LAB BLOOD ORDERA BLES Final Result [facility] Department [place] [address] * CBC without differential (02/28/2025 9:23 AM CDT) [facility] WBC 6.90 3.80 - 9.90 K/cumm Hgb 15.4 13.0 - 17.5 g/dL [facility] Hct 44.7 38.9 - 50.3 % [facility] Plt 221 150 - 400 K/cumm [facility] MPV 10.8 9.1 - 12.3 fL [facility] RBC 5.39 4.30 - 5.80 M/cumm [facility] MCV 82.9 81.3 - 96.4 fL [facility] MCH 28.6 27.1 - 33.3 pg [facility] MCHC 34.5 32.3 - 35.7 g/dL [facility] RDW CV 13.2 11.1 - 14.9 % [facility] RDW SD 39.4 35.7 - 48.1 fL [facility] NRBC abs 0.00 0.00 - 0.01 K/cumm [facility] Blood 02/28/2025 9:23 AM CDT 02/28/2025 9:53 AM CDT us Estuardo Aquino MD LAB BLOOD ORDERA BLES Final Result [facility] Department [place] [address] * Basic metabolic panel (02/28/2025 9:23 AM CDT) Sodium 143 135 - 145 mmol/L Potassium, pl 3.4 3.3 - 4.9 mmol/L [facility] Chloride 100 97 - 110 mmol/L [facility] CO2 31 22 - 32 mmol/L [facility] Anion gap 12 2 - 15 mmol/L [facility] BUN 23 6 - 25 mg/dL [facility] Creatinine 1.19 0.80 - 1.30 mg/dL [facility] Glucose 97 70 - 199 mg/dL [facility] Comment: Interpretive Data Fasting glucose >/= 126 [...] 2022. Calcium 9.6 8.5 - 10.3 mg/dL [facility] Blood 02/28/2025 9:23 AM CDT 02/28/2025 9:53 AM CDT us Estuardo Aquino MD LAB BLOOD ORDERA BLES Final Result Performing Organization Address [facility] Co de Phone Number [facility] Department [place] [address] * ECG 12 lead (02/28/2025 8:29 AM CDT) Pathologist [facility] [place] Ventricular Rate EKG/Min 71 BPM [facility] Atrial Rate 82 BPM [facility] TN-Interval (MSEC) 162 ms [facility] QRS-Interval (MSEC) 92 ms [facility] QT-Interval (MSEC) 474 ms [facility] QTc 515 ms [facility] P [place] 81 degrees [facility] R [place] 10 degrees [facility] T [place] 33 degrees [facility] Diagnosis Sinus rhythm with frequent Premature ventricular complexes and Premature atrial complexes Nonspecific ST abnormality Prolonged QT Abnormal ECG When compared with ECG of 11-NOV-2024 13:51, PREVIOUS ECG IS PRESENT Confirmed by KORINA ANDRADE M.D ([id number]) on 02/28/2025 1:37:15 PM [facility] 02/28/2025 8:29 AM CDT 02/28/2025 1:37 PM CDT us Anson Manley LAST GREASER ECG ORDERABLES Final Re sult Performing Organization Address [facility] de Phone Number [facility] * MRI Cardiac M&F W WO Contrast [...] or infiltrative cardiomyopathy. Electronically signed by: Evie Leola Javier, M.D. us Krasimira Mikhailova Mikhova MD IMG MRI PROCEDUR ES Final Result * TN AN ELECTIVE ENDOTRACHEAL AIRWAY, TN AN PROCEDURE PLACEHOLDER (02/25/2025 11:01 AM CDT) Narrative Theodore Cervantes CRNA - 02/25/2025 11:01 AM CDT Theodore Cervantes CRNA 02/25/2025 11:06 AM Airway Urgency: elective Date/time: 02/25/2025 9:56 AM Indications for airway management: anesthesia Difficult airway: no Staff: Supervising provider: Basia Tracey MD Placed by: WASTE WATER PLANT OPERATOR: Theodore Cervantes CRNA Emergent airway documentation: Risks [...] with: silk tape Number of attempts: 1 Basia Tracey MD ANESTHESIA ORDERABLES Final R esult * SCAN - RADIOLOGY/IMAGING (02/14/2025) Anatomical Region Laterality Modality Other Provider Scanning Final Result * PSG-Sleep Provider [...] continued 7. Avoid alcohol sedatives and other STAGE SETTING PAINTER APPRENTICE depression that may worsen sleep apnea and [...] SLEEP CENTER ORDERABLES Final Re sult * PSA screen (10/23/2024 2:14 PM CDT) [...] data last revised 21. Testing performed by: [facility], [address] [place] [address]., [id number] Blood 10/23/2024 2:14 PM CDT 10/23/2024 4:25 PM CDT us Butch De Souza Jr., MD LAB BLOOD ORDERABLES Final Result [facility] [address] [facility] Department [place] [address] * Hepatitis panel, acute Blood (07/19/2024 9:26 AM COURSE INSTRUCTOR) Hep A IgM Nonreactive Nonreactive Comment: Interpretive Data: If Hep A IgM Ab is reported as Equivocal, a new sample should be drawn in two weeks for testing. Current interpretive data was last revised on 19. Hep B core IgM Nonreactive Nonreactive [facility] Comment: Interpretive Data If HepB Core IgM Ab is reported as Equivocal, a new sample should be drawn in two weeks for testing. Current interpretive data was last revised on 19. Hep C Ab Nonreactive Nonreactive [facility] Comment: Antibodies to HCV not detected. Does [...] last revised on 2019. HepBsAg Nonreactive Nonreactive [facility] Blood 07/19/2024 9:26 AM COURSE INSTRUCTOR 07/19/2024 2:49 PM COURSE INSTRUCTOR Butch De Souza Jr., MD LAB MICROBIOLOGY - [facility] ORDERABLES Final Result [facility] [address] [facility] Department [place] [address] * (ABNORMAL) COLONOSCOPY (11/17/2023) Scribed Colonoscopy Abnormal Historical Provider HEALTH MAINTENANCE Final Result from Last 3 Months or Most Recently Relevant to Health Maintenance Insurance MEDICARE [facility] Address: [address] [facility] [address] [place] [address] ON LICENSE OF [facility] MEDICARE MEDICARE ON LICENSE OF [facility] MEDICARE ON LICENSE OF [facility] Advance Directives For more information, please contact: [phone] Documents on File Type Date Recorded Patient Building Analyst/Supervisor Expl anation Power of Slip Dumper 12/24/2024 5:17 AM * Full Code (Latest [...] 9:02 AM 11/17/2023 3:20 PM Care Teams Linux Security Administrator Relationship Specialty Start Date End Date Butch De Souza Jr., MD [address] [place] [address] PCP - General Internal Medicine 06/17/21 [place] [address] [place] [address] Referring Physician Rheumatology 06/17/21 [place] [address] [place] [address] Consulting Physician Gastroenterology 06/17/21 [place] [address] [address] [facility] [address] [place] [address] Consulting Physician Cardiovascular Disease 07/09/24 Grey Hand, LEBRON [address] [place] [address] [address] [place] [address] Inspector Raw Quartz 08/12/24 [place] [address] [address] [facility] [address] [place] [address] Consulting Physician Pulmonary Disease 12/10/24
--- OUTSIDE RECORDS SUMMARY | 2025-05-02 12:30 | XMS_ITS | Clinical Summary ---
Author Organization [facility] Address [address] [place] [address] Phone Care Team Providers Care Boiling Tub Operator Name Role Phone Montana Gayle DO Primary Care Provider [phone] Allergies Active Allergy Reactions Criticality Noted Date [...] severe pain. Active APAP-CODEINE & DIET MANAGE KS PO Take 300 mg by mouth 3 [...] of Treatment Not on file Insurance MEDICARE [facility] Care Teams Boiling Tub Operator Relationship Specialty Start Date End Date Montana Gayle DO [address] [place] [address] PCP - General Internal Medicine 09/17/18
--- OUTSIDE RECORDS SUMMARY | 2025-05-02 12:30 | XMS_ITS | Encounter Summary ---
Author Organization [facility] Address [address] [place] [address] Care Team Providers Care Floorworker Name Role Phone Swathi Golden RN Unavailable Unavailab Heydi Razo MD Primary Care Provider Heydi Hood MD Primary Care Provider Nolvia Olivares MD, Butch Cross Primary Care Provide r Sheri Mac MD Unavailable [phone] Yessica Worthy MD Unavailable [phone] Tonny Yoon MD Unavailable Cortney García RN Unavailable [phone] Ajay Downs MD Unavailable Grey Hand RN Unavailable [phone] Kodi Griggs MD Unavailable Encounter Details Date Type Department Care Team (Late st Contact Info) Description 11/06/2017 Orders Only [facility] Health Information Management [address] [place] [address] Scanning, Provider Social History Tobacco Use Types Packs/Day Years Used Date Smoking Tobacco: Never Smokeless Tobacco: Never Alcohol Use Standard Drinks/Week Comments No 0 (1 standard drink = 0.6 oz pur e alcohol) Sex and Gender Information Value Date Recorded Sex Assigned at Not on file Legal Sex Male 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 Gender Identity Not on file Sexual Orientation [...] COVID: Suspected 06/14/2021 06/14/2021 06/14/2021 7:24 PM FORMULA MIXER COVID: Suspected 01/16/2022 01/16/2022 01/16/2022 7:20 PM CDT COVID: Suspected 08/22/2022 08/22/2022 08/22/2022 9:42 AM FORMULA MIXER COVID: Suspected 08/04/2024 08/04/2024 08/04/2024 3:41 PM FORMULA MIXER COVID: Suspected 08/05/2024 08/05/2024 08/05/2024 1:23 PM FORMULA MIXER Rhino/Enterovirus 11/08/2024 11/08/2024 11/15/2024 3:05 AM CDT documented as of this encounter Care Teams Floorworker Relationship Specialty Start Date End Date Heydi Hood MD [address] [place] [address] [address] [facility] [address] [place] [address] PCP - General Family Medicine 03/03/21 06/13/21 Heydi oHod MD [address] [facility] [address] [place] [address] PCP - General 06/14/21 06/16/21 Butch De Souza Jr., MD [address] [place] [address] PCP - General Internal Medicine 06/17/21 Swathi Golden, RN Registered Nurse 04/15/19 01/18/23 Sheri Mac MD [address] [address] Endocrinology 06/17/21 12/09/24 Yessica Worthy MD [address] [facility] [address] [place] [address] Referring Physician Rheumatology 06/17/21 [place] [address] [place] [address] Consulting Physician Gastroenterology 06/17/21 Cortney García, [place] [address] [place] [address] [facility] [address] [place] [address] Internet Assessor 11/09/23 05/30/24 [place] [address] [facility] [address] [place] [address] Consulting Physician Cardiovascular Disease 07/09/24 Grey Hand, [place] [address] [place] [address] [facility] [address] [place] [address] Internet Assessor 08/12/24 [place] [address] [address] [facility] [address] [place] [address] Consulting Physician Pulmonary Disease 12/10/24 documented as of this encounter
--- OUTSIDE RECORDS SUMMARY | 2025-05-02 12:30 | XMS_ITS | Encounter Summary ---
Author Organization [facility] Address [address] [place] [address] Phone Care Team Providers Care School Guidance Counselor Name Role Phone Swathi Golden RN Unavailable Unavailab Heydi Razo MD Primary Care Provider Heydi Hood MD Primary Care Provider Nolvia Olivares MD, Butch Cross Primary Care Provide r Sheri Mac MD Unavailable Yessica Worthy MD Unavailable Tonny Yoon MD Unavailable Cortney García RN Unavailable Ajay Downs MD Unavailable [phone] Grey Hand RN Unavailable Kodi Griggs MD [...] on file Legal 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 Gender Identity Not on file [...] COVID: Suspected 06/14/2021 06/14/2021 06/14/2021 7:24 PM PIPE THREADING MACHINE OPERATOR COVID: Suspected 01/16/2022 01/16/2022 01/16/2022 7:20 PM CDT COVID: Suspected 08/22/2022 08/22/2022 08/22/2022 9:42 AM PIPE THREADING MACHINE OPERATOR COVID: Suspected 08/04/2024 08/04/2024 08/04/2024 3:41 PM PIPE THREADING MACHINE OPERATOR COVID: Suspected 08/05/2024 08/05/2024 08/05/2024 1:23 PM PIPE THREADING MACHINE OPERATOR Rhino/Enterovirus 11/08/2024 11/08/2024 11/15/2024 3:05 AM CDT documented as of this encounter Care Teams School Guidance Counselor Relationship Specialty Start Date End Date Heydi Hood MD [address] [address] PCP - General Family Medicine 03/03/21 06/13/21 Heydi Hood MD [address] [place] [address] PCP - General 06/14/21 06/16/21 Butch De Souza Jr., MD [address] [place] [address] PCP - General Internal Medicine 06/17/21 Swathi Golden RN Registered Nurse 04/15/19 01/18/23 Sheri Mac MD [address] [place] [address] [place] [address] Endocrinology 06/17/21 12/09/24 Yessica Worthy MD [address] [facility] [address] [place] [address] Referring Physician Rheumatology 06/17/21 [place] [address] [place] [address] Consulting Physician Gastroenterology 06/17/21 Cortney García RN [address] [place] [address] [address] [place] [address] Assurance Auditor 11/09/23 05/30/24 [place] [address] [facility] [address] [place] [address] Consulting Physician Cardiovascular Disease 07/09/24 Grey Hand, LEBRON [address] [place] [address] [address] [place] [address] Assurance Auditor 08/12/24 [place] [address] [address] [facility] [address] [place] [address] Consulting Physician Pulmonary Disease 12/10/24 documented as of this encounter
--- OUTSIDE RECORDS SUMMARY | 2025-05-02 12:30 | XMS_ITS | Encounter Summary ---
Author Organization [facility] Address [address] [place] [address] Care Team Providers Care Strip Cutter Name Role Phone Nolvia Olivares MD, Butch Sanches Primary Care Provider Reason for Visit * Reason Onset Date Comments Chest pain, passed out 07/12/2022 Spoke W/ Tammie at Dr. Downs's office Encounter Details Date Type Department Care Team (Late st Contact Info) Description 07/12/2022 Telephone [facility] Admitting [address] [place] [address] [place] [address] [address] Chest pain, passed out (Spoke [...] Coronavirus/COVID-19? No / Unsure 07/11/2022 5:52 PM HOT PACKER documented as of this encounter Plan of Treatment Not on file documented as of this encounter Visit Diagnoses Not on filedocumented in this encounter Care Teams Strip Cutter Relationship Specialty Start Date End Date Butch De Souza Jr., MD [address] [place] [phone] PCP - General Internal Medicine 05/10/22 documented as of this encounter
--- OUTSIDE RECORDS SUMMARY | 2025-05-02 12:30 | XMS_ITS | Clinical Summary ---
Author Organization [facility] [employer] Address [address] [place] [address] Care Team Providers Care Operator And Truck Driver Name Role Phone Ajay Childs MD Unavailable [phone] Nolvia Olivares MD, Butch Sanches Primary Care Provider Source Comments [facility],non-owned Affiliates and Associated Physician Practices is amultiple site organization consisting of ambulatory clinics and hospital sitesin [place], [place], [place] and [place]. This disclosure is being madepursuant to the Care Everywhere program and may not contain all information available regarding this patient. 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 Not hard at all 06/02/2023 [facility] - [...] place to sleep or slept in a jail (including now)? No 06/02/2023 Sex and Gender Information Value Date Recorded Sex Assigned at Not on file Legal Sex Male 6:06 AM PALLET ASSEMBLER Gender Identity Not on file Sexual Orientation Not on file Last Filed Vital Signs Vital Sign Reading Time Taken Comments Blood Pressure 128/74 06/21/2023 5:27 PM PALLET ASSEMBLER Pulse 74 06/21/2023 5:27 PM PALLET ASSEMBLER Temperature 36.4 C (97.5 F) 06/21/2023 5:27 PM PALLET ASSEMBLER Respiratory Rate 17 06/21/2023 5:27 PM PALLET ASSEMBLER Oxygen Saturation 98% 06/21/2023 5: 27 PM PALLET ASSEMBLER Inhaled Oxygen Concentration - - Weight 141.3 kg (311 lb 9.6 oz) 06/02/2023 7:21 AM PALLET ASSEMBLER Height 190.5 cm (6' 3) 06/02/2023 7:21 AM PALLET ASSEMBLER Body Mass Index 38.95 06/02/2023 7:21 AM PALLET ASSEMBLER Plan of Treatment Health Maintenance Due Date Last Done Comments COLOGUARD (AGES 45-75) - COLON CA SCREENING 1958 COLON MONITORING 1958 COLONOSCOPY - COLON CA SCREENING 1958 CT COLONOGRAPHY - COLON CA SCREENING 1958 Colorectal Cancer Screening 1958 FIT - COLON CA SCREENING 1958 FLEX SIG - COLON CA SCREENING 1958 HEPATITIS C SCREENING 05/21/1976 PNEUMOCOCCAL VACCINE 50+ (1 of 1 - PCV) 2008 ZOSTER VACCINE (1 of 2) 2008 DEPRESSION SCREENING 07/03/2024 MEDICARE AWV CALENDAR YEAR 2024 DTAP/TDAP/TD VACCINES (2 - Td or Tdap) 02/23/2025 02/23/2015 COVID-19 VACCINE (1 - 2023- season) 2025 INFLUENZA VACCINE (#1) 2025 0, 04/11/2019, 04/30/2018, Additional history exists SCREENING FOR DIABETES 06/02/2026 3, 03/14/2023, 02/21/2023, Additional history exists Respiratory Syncytial Virus (RSV) Vaccine Pt: or over 60 yrs (1 - 1-dose 75+ series) 2033 HEPATITIS B VACCINE Aged Out No longe [...] this topic Medical Devices Implanted Type Area Packaging Manager Device Identifier Shelf Expiration Date Model / Serial / Lot Graft Tissue Drgn + Bvn Clgn Mtrx 2x2in Implanted:Qty: 1 on 09/13/2018 by Jackson Norwood MD at [facility] [employer] 07/02/2021 [id number] / / [id number] Cmpnt Fem Kn Rt Cr Cmnt Prm Vngrd Intlk Implanted:Qty: 1 on 03/13/2023 by Miko Pérez MD at [facility] Right: Knee [employer] 12/13/2032 [id number] / / [id number] Cmnt Bone Plc R 40gm Grn Implanted:Qty: 1 on 03/13/2023 by Miko Pérez MD at [facility] Right: Knee [employer] 07/02/2025 [id number] / / [id number] Cmnt Bone Plc R 40gm Grn Implanted:Qty: 1 on 03/13/2023 by Miko Pérez MD at [facility] Right: Knee [employer] 07/02/2025 [id number] / / [id number] Tray Tib 83mm As Mx Kn Intlk Cocr 1 Pc Implanted:Qty: 1 on 03/13/2023 by Miko Pérez MD at [facility] Right: Knee [employer] 02/08/2032 [id number] / / [id number] Cmpnt Ptlr Std 37mm 3 Pg Kn Ser A Implanted:Qty: 1 on 03/13/2023 by Miko Pérez MD at [facility] Right: Knee [employer] 03/21/2027 [id number] / / [id number] P[employer] [id number] Vivacit-E Kn Ant Stab Implanted:Qty: 1 on 03/13/2023 by Miko Pérez MD at [facility] Right: Knee [employer] 05/17/2027 [id number] BILL ONLY / / [id number] Tray Tib 83mm As Mx Kn Intlk Cocr 1 Pc Implanted:Qty: 1 on 06/02/2023 by Miko Pérez MD at [facility] Left: Knee [employer] 11/08/2032 [id number] / / [id number] Cmpnt Fem Kn Lt Cr Cmnt Prm Vngrd Intlk Implanted:Qty: 1 on 06/02/2023 by Miko Pérez MD at [facility] Left: Knee [employer] 04/08/2033 [id number] / / [id number] Cmpnt Ptlr Std 34mm 3 Pg Kn Ser A Implanted:Qty: 1 on 06/02/2023 by Miko Pérez MD at [facility] Left: Knee [employer] 06/29/2027 [id number] / / [id number] [employer] [id number] Vngrd Arcm Kn Ant Stab Implanted:Qty: 1 on 06/02/2023 by Miko Pérez MD at [facility] Left: Knee [employer] 11/19/2024 [id number] BILL ONLY / / [id number] Cmnt Bone Plc R 40gm Grn Implanted:Qty: 1 on 06/02/2023 by Miko Pérez MD at [facility] Left: Knee [employer] 08/30/2025 [id number] / / [id number] Cmnt Bone Plc R 40gm Grn Implanted:Qty: 1 on 06/02/2023 by Miko Pérez MD at [facility] Left: Knee [employer] 10/30/2025 [id number] / / [id number] Procedures Procedure Name Priority Date/Time Associated Diagnosis Comments BASIC METABOLIC PANEL (CALCIUM TOTAL) STAT 06/02/2023 7:31 AM PALLET ASSEMBLER Preop examination from Last 3 Months or Most Recently Relevant to Health Maintenance Results * (ABNORMAL) BASIC METABOLIC PANEL (CALCIUM TOTAL) (06/02/2023 7:31 AM PALLET ASSEMBLER) [facility] Glucose 86 70 - 105 mg/dL 06/02/2023 7:57 AM PALLET ASSEMBLER [facility] Sodium 139 136 - 145 mmol/L 06/02/2023 7:57 AM [facility] Potassium 3.2(L) 3.5 - 5.1 mmol/L 06/02/2023 7:57 AM [facility] Chloride 110(H) 98 - 107 mmol/L 06/02/2023 7:57 AM [facility] CO2 20(L) 22 - 29 mmol/L 06/02/2023 7:57 AM [facility] Calcium 8.6 8.4 - 10.4 mg/dL 06/02/2023 7:57 AM [facility] Anion Gap 9 6 - 16 mmol/L 06/02/2023 7:57 AM [facility] BUN 18 7 - 26 mg/dL 06/02/2023 7:57 AM [facility] Creatinine 0.93 0.72 - 1.25 mg/dL 06/02/2023 7:57 AM [facility] eGFR by CKD-EPI >90 >=90 mL/min/1.7 3 m2 06/02/2023 7:57 AM [facility] Blood BLOOD SPECIMEN / Unknown Venipuncture / Unknown 06/02/2023 7:31 AM PALLET ASSEMBLER 06/02/2023 7:42 AM [facility] Jeanie Valdovinos DO LAB - CHEMISTRY ORDERABLES Jyothi durant Result [facility] [address] [place] [address] from Last 3 Months or Most Recently Relevant to Health Maintenance Insurance MEDICARE [facility] MEDICARE [facility] [address] [place] [id number] MEDICARE ANTHKETTY Advance Directives * Full Code (Latest Code [...] 11:27 PM 09/13/2018 11:27 PM Care Teams Operator And Truck Driver Relationship Specialty Start Date End Date Butch De Souza Jr., MD [address] [place] [id number] PCP - General Internal Medicine 02/21/23 Ajay Childs MD [address] [place] [id number] Cardiovascular Disease 04/19/19
[2025-05-02 13:05] LABS: Hematocrit 45.6 % (42.0-52.0); Hemoglobin 15.5 g/dL (14.0-18.0); Immature Granulocyte Percent A 0.2 % (0-0.5); Lymphocytes Absolute Auto 1.45 K/mm3 (0.9-3.2); Mean Corpuscular HGB Conc 34.0 g/dl (32-36); Mean Corpuscular Hemoglobin 28.9 pg (26-34); Mean Corpuscular Volume 85.1 fl (80-100); Nucleated Red Blood Cells Absolute Auto 0.000 K/mm3 (0.0-0.012); Nucleated Red Blood Cells Perc 0.0 % (0.0-0.2); Platelet Count Result 245 k/mm3 (150-375); Red Blood Count 5.36 M/mm3 (4.6-6.20); White Blood Count 6.6 K/mm3 (4.5-10.0)
[2025-05-02 13:20] LABS: Alanine Aminotransferase 70 U/L (6-50); Albumin Level 4.7 g/dL (3.5-5.1); Alkaline Phosphatase 113 U/L (38-126); Anion Gap 8 mmol/L (4-12); Aspartate Amino Transferase 58 U/L (17-59); Bilirubin,Total 1.0 mg/dL (0.2-1.3); Blood Urea Nitrogen 27 mg/dL (9-20); Calcium 9.2 mg/dL (8.4-10.2); Carbon Dioxide 27 mmol/L (22-30); Chloride 103 mmol/L (98-107); Estimated CRCL calculation 90 ml/min; Estimated Glomerular Filt Rate > 60; Glucose 110 mg/dL (65-110); Lipase 162 U/L (23-300); Potassium 3.6 mmol/L (3.4-5.0); Sodium 138 mmol/L (137-145); Total Protein 7.8 g/dL (6.3-8.2)
[2025-05-02 13:27] LABS: INR 1.2; Prothrombin Time 15.2 Seconds (11.1-14.7)
[2025-05-02 13:29] LABS: Partial Thromboplastin Time 31.9 Seconds (22.3-36.8)
[2025-05-02 13:31] LABS: Troponin I < 0.012 ng/mL (0.000-0.034)
[2025-05-02] MEDS: ASPIRIN 81 MG CHEWABLE TABLET 324 MG PO (14:14)
--- NOTE | 2025-05-02 14:18 | ED.CHESTPAIN ---
HPI - Chest Pain General Chief Complaint: Chest Pain Stated Complaint: High Blood Pressure, Chest Pressure Time Seen by Provider: 05/02/25 14:08 Source: patient Mode of arrival: ambulatory Limitations: no limitations History of Present Illness HPI narrative: This is AA a 64-year-old male with history of AFib my ED status post ablation, hypertension, anxiety who presents the ED for chest pain and headache and hypertension. Patient states that yesterday, he began to have a headache with chest pain. He checked his blood pressure and was in the 200/100 pain. He took a dose of clonidine which he has been instructed to take if his blood pressure gets excessively high like this. He called his coyote hunter this morning a Abrahan who advised that he come to the ED for further evaluation. Patient continues report left-sided headache and left-sided chest pain. Related Data Home Medications ?Medication ?Instructions ?Recorded ?Confirmed ?Last Taken ?Type amlodipine 10 mg tablet (Norvasc) 10 mg PO DAILY 01/04/20 04/05/21 07/06/20 09:00 History atorvastatin 40 mg tablet (Lipitor) 40 mg PO DAILY 01/04/20 04/05/21 07/06/20 09:00 History fenofibrate 160 mg tablet 160 mg PO DAILY 01/04/20 04/05/21 07/05/20 17:00 History hydrocodone 10 mg-acetaminophen 1 tablet PO Q8H PRN Pain 01/04/20 04/05/21 Unknown History 325 mg tablet pregabalin 100 mg capsule (Lyrica) 100 mg PO BID 01/04/20 04/05/21 07/06/20 09:00 History topiramate 100 mg tablet (Topamax) 100 mg PO BID 01/04/20 04/05/21 07/06/20 09:00 History venlafaxine 150 mg 300 mg PO DAILY 01/04/20 04/05/21 07/06/20 09:00 History capsule,extended release 24 hr (Effexor XR) cyclobenzaprine 10 mg tablet 10 mg PO BID 04/05/21 04/05/21 Unknown History hydrochlorothiazide 25 mg tablet 25 mg PO DAILY 04/05/21 04/05/21 Unknown History hydroxyzine pamoate 25 mg capsule 25 mg PO HS 04/05/21 04/05/21 Unknown History spironolactone 25 mg tablet 25 mg PO DAILY 04/05/21 04/05/21 Unknown History vortioxetine 10 mg tablet 10 mg PO DAILY 04/05/21 04/05/21 Unknown History (Trintellix) Allergies Allergy/AdvReac Type Severity Reaction Status Date / Time aripiprazole Allergy Unknown Rash Verified 05/02/25 12:48 hydroxychloroquine Allergy Unknown Rash Verified 05/02/25 12:48 methotrexate Allergy Unknown Rash Verified 05/02/25 12:48 sumatriptan Allergy Unknown Rash Verified 05/02/25 12:48 zolpidem Allergy Unknown Rash Verified 05/02/25 12:48 Review of Systems Review of Systems: Gen.: Denies fevers or chills Eyes: Denies eye pain or visual change ENT: Denies congestion Respiratory: As per HPI CV: As per HPI GI: Denies abdominal pain nausea, emesis or diarrhea denies burning, urgency, frequency or hematuria Musculoskeletal: Denies back pain or muscle pain Neuro: Denies numbness, tingling, weakness or focal weakness Skin: Denies rash Except as documented, all other systems reviewed and negative [facility] Past Medical History Medical History Implantable loop recorder present Kidney stones Mitral valve prolapse Glaucoma Hepatic steatosis Posttraumatic stress disorder Transient ischemic attack Obstructive sleep apnea on CPAP Atrial fibrillation Status post ablation. On apixaban for stroke prophylaxis. COVID-19 (07/2020) Rheumatoid arthritis Skin cancer Anxiety Depression Arthritis Fibromyalgia Hypertension Hyperlipidemia Peripheral neuropathy Migraines Surgical History Surgical History Status post surgical removal of malignant neoplasm of skin History of arthroplasty of right shoulder History of arthroscopic knee surgery Status post ablation of atrial fibrillation History of cholecystectomy History of lumbar surgery History of loop recorder Family History Family History Mother Cancer Social History Social History Social History: . Lives with his in [place]. They have 2 children. 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 No alcohol, tobacco, or illicit substance use. Surrogate decision maker: Rubievaristo Menendez, spouse. Code status: Full code. Living arrangements: with family Occupation/Education: retired Exam Narrative: APPEARANCE: No acute distress, nontoxic, resting in bed EYES: EOMI HEENT: Normocephalic, atraumatic, OMM RESPIRATORY: No respiratory distress Clear to auscultation bilaterally with no rhonchi wheezing or rales. CARDIOVASCULAR: Regular rate and rhythm without murmurs rubs or gallops. Mild left-sided chest wall tenderness to palpation. ABDOMINAL: Soft, nontender, nondistended, no rebound or guarding MUSCULOSKELETAl: Moves all extremities. No clubbing, cyanosis or edema. NEURO: Awake and alert. Following commands, speech normal, no focal deficits SKIN:: Warm, dry. No rashes lesions or abrasions PSYCHIATRIC: Normal affect/mood, Course Vital Signs Vital signs: Vital Signs Temperature 97.8 F 05/02/25 12:43 Pulse Rate 65 05/02/25 12:43 Respiratory Rate 16 05/02/25 12:43 Blood Pressure 127/74 05/02/25 12:43 Pulse Oximetry 96 05/02/25 12:43 Oxygen Delivery Room Air 05/02/25 12:43 Temperature 97.8 F 05/02/25 12:43 Pulse Rate 55 L 05/02/25 16:46 Respiratory Rate 18 05/02/25 16:46 Blood Pressure 143/81 H 05/02/25 16:46 Pulse Oximetry 98 05/02/25 16:46 Oxygen Delivery Room Air 05/02/25 14:08 MDM - Chest Pain MDM Narrative Medical decision making narrative: 64-year-old male Presenting for chest pain and headache. On initial evaluation patient was in no acute distress afebrile, hemodynamic stable. Differentials include but are not limited to: ACS, PE, PNA, bronchitis, costochondritis, pleurisy, viral syndrome, GERD, dissection, Notable exam findings: Nonfocal neuro exam. Tenderness to palpation to the left chest wall. Notable lab findings: CBC and CMP without significant abnormalities. Troponin negative. Repeat troponin negative. Notable imaging findings: Chest x-ray showed no acute process. CT head showed no acute process. CTA chest/abdomen/pelvis showed stable thoracic aortic aneurysm size, no dissection. Patient was given aspirin with minimal improvement of this pain. He was subsequently given nitroglycerin with no change in chest pain but worsening of his headache. He was subsequently given morphine with improvement of his headache but no improvement of his chest pain. Given the intractable chest pain, he will require admission for further cardiac evaluation. Case was discussed with Dr. Foster, cardiology, who will see the patient as consult. Case discussed with hospitalist who will admit the patient. Medical Records Data Attestation: I reviewed the patient's medical records. Lab Data Attestation: I reviewed the patient's lab results. 05/02/25 12:58 05/02/25 12:58 Labs: Lab Results 05/02/25 05/02/25 Range/Units 12:58 15:50 WBC 6.6 (4.5-10.0) K/mm3 RBC 5.36 (4.6-6.20) M/mm3 Hgb 15.5 (14.0-18.0) g/dL Hct 45.6 (42.0-52.0) % MCV 85.1 (80-100) fl MCH 28.9 (26-34) pg MCHC 34.0 (32-36) g/dl RDW 13.3 (11.5-14.5) % Plt Count 245 (150-375) k/mm3 MPV 10.7 H (7.4-10.4) fl Immature Gran % (Auto) 0.2 (0-0.5) % Neut % (Auto) 63.5 (45.5-73.1) % Lymph % (Auto) 21.9 (18.3-44.2) % [place] % (Auto) 11.8 H (2.6-8.5) % Eos % (Auto) 2.3 (0-4.4) % Baso % (Auto) 0.3 (0.2-1.2) % Lymph # (Auto) 1.45 (0.9-3.2) K/mm3 [place] # (Auto) 0.8 H (0.1-0.6) K/mm3 Eos # (Auto) 0.2 (0-0.3) K/mm3 Baso # (Auto) 0.0 (0.0-0.1) K/mm3 Abs Immat Gran (auto) 0.01 (0.00-0.031) K/mm3 Absolute Neuts (auto) 4.2 (1.3-6.7) K/mm3 Absolute Nucleated RBC 0.000 (0.0-0.012) K/mm3 Nucleated RBC % 0.0 (0.0-0.2) % PT 15.2 H (11.1-14.7) Seconds INR 1.2 APTT 31.9 (22.3-36.8) Seconds Sodium 138 (137-145) mmol/L Potassium 3.6 (3.4-5.0) mmol/L Chloride 103 (98-107) mmol/L Carbon Dioxide 27 (22-30) mmol/L Anion Gap 8 (4-12) mmol/L BUN 27 H D (9-20) mg/dL Creatinine 1.14 (0.7-1.3) mg/dL Estim Creat Clear Calc 90 ml/min Estimated GFR > 60 (59 - ) Glucose 110 (65-110) mg/dL Calcium 9.2 (8.4-10.2) mg/dL Total Bilirubin 1.0 (0.2-1.3) mg/dL AST 58 (17-59) U/L ALT 70 H (6-50) U/L Alkaline Phosphatase 113 (38-126) U/L Troponin I < 0.012 < 0.012 (0.000-0.034) ng/mL Total Protein 7.8 (6.3-8.2) g/dL Albumin 4.7 (3.5-5.1) g/dL Lipase 162 (23-300) U/L Imaging Data Attestation: I personally reviewed and interpreted this imaging study as follows: My impression: Chest x-ray: Normal cardiac silhouette, no consolidations, no pleural effusions, no pulmonary vascular congestion Radiologist's impression: Impressions Chest X-Ray 05/02/25 13:20 Impression: No acute cardiopulmonary abnormality. Head CT 05/02/25 16:08 Impression: 1.No acute intracranial abnormality. Chest/Abdomen/Pelvis CTA 05/02/25 18:01 IMPRESSION: 1. 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 Remainder of the aorta is normal in caliber with no dissection. No other acute cardiopulmonary disease or acute intra-abdominal/pelvic process. 2. Diffuse hepatic steatosis. 3. Small fat-containing right inguinal hernia. ECG Data EKG #1: Attestation: I personally reviewed and interpreted this ECG as follows: ECG completion date: 10/31/25 ECG completion time: 12:33 Interpretation: Normal sinus rhythm rate of 68 with frequent PVCs, normal axis, prolonged QTc at 504, no acute ST or T-wave changes EKG #2: Attestation: I personally reviewed and interpreted this ECG as follows: ECG completion date: 05/02/25 ECG completion time: 15:44 Interpretation: Sinus bradycardia rate of 55, normal axis, prolonged QTC at 497, no acute ST or T-wave changes. No significant change from earlier Discharge Plan Discharge Clinical Impression: Chest pain Qualifiers: Chest pain type: unspecified Qualified Code(s): R07.9 - Chest pain, unspecified Hypertension Qualifiers: Hypertension type: unspecified Qualified Code(s): I10 - Essential (primary) hypertension Headache Qualifiers: Headache type: unspecified Headache chronicity pattern: unspecified pattern Intractability: intractable Qualified Code(s): R51.9 - Headache, unspecified Patient Disposition: Still a Patient Condition: Stable
--- OUTSIDE RECORDS SUMMARY | 2025-05-02 14:28 | XMS_ITS | Clinical Summary ---
Author Organization [facility] Address [address] [place] [address] Phone Care Team Providers Care Line Manager Name Role Phone Nolvia Olivares MD, Butch [...] times daily as needed. 0 Active omega 5-nfo-hso-fish oil 360-1,200 mg Capsule, Delayed Release(E.C.) Take [...] Comments Blood Pressure 102/59 07/13/2022 3:53 PM PURIFICATION OPERATOR HELPER Pulse 65 07/13/2022 3:51 PM PURIFICATION OPERATOR HELPER Temperature 36.6 C (97.8 F) 07/13/2022 3:51 PM PURIFICATION OPERATOR HELPER Respiratory Rate 18 07/13/2022 3:51 PM PURIFICATION OPERATOR HELPER Oxygen Saturation 98% 07/13/2022 3:51 PM PURIFICATION OPERATOR HELPER Inhaled Oxygen Concentration - - Weight 149.7 kg (330 lb) 05/10/2022 3:44 PM PURIFICATION OPERATOR HELPER Height 190.5 cm (6' 3) 05/10/2022 3:44 PM PURIFICATION OPERATOR HELPER Body Mass Index 41.25 05/10/2022 3:44 PM PURIFICATION OPERATOR HELPER Plan of Treatment Health Maintenance Due Date [...] Comments HEMOGLOBIN A1C Stat 05/21/2020 4:21 PM PURIFICATION OPERATOR HELPER from Last 3 Months or Most Recently Relevant to Health Maintenance Results * HEMOGLOBIN A1C (05/21/2020 4:21 PM PURIFICATION OPERATOR HELPER) HEMOGLOBIN A1C 5.5 <=5.6 % 05/22/2020 3:04 AM PURIFICATION OPERATOR HELPER [facility] EST. AVG GLUCOSE, A1C 111 mg/dL 05/22/2020 3:04 AM PURIFICATION OPERATOR HELPER [facility] Blood Venipuncture / Unknown 05/21/2020 4:21 PM PURIFICATION OPERATOR HELPER 05/21/2020 4:29 PM PURIFICATION OPERATOR HELPER Narrative [facility] [employer] [facility] - 05/22/2020 3:04 AM PURIFICATION OPERATOR HELPER HGB A1C INTERPRETATION NORMAL: <5.7% PRE-DIABETES: 5.7 - 6.4% DIABETES: 6.5% OR GREATER us Albert Allred MD CHEMISTRY ORDERABLES Final Res ult [facility] [employer] [facility] CLIA# [id number] [place] [address] from Last 3 Months or Most Recently Relevant to Health Maintenance Insurance MEDICARE PART A AND B [facility] BLUE ACCESS/TRUE BLUE PPO Advance Directives For more information, please contact: [phone] * Full Code (Latest Code Status on File) Date Activated Date Inactivated Comments 07/11/2022 5:49 PM 07/13/2022 7:24 PM * Full Code Date Activated Date Inactivated Comments 03/30/2022 12:44 PM 03/30/2022 8:02 PM * Full Code Date Activated Date Inactivated Comments 05/22/2020 6:25 AM 05/23/2020 7:43 PM Care Teams Line Manager Relationship Specialty Start Date End Date Butch De Souza Jr., MD [address] [place] [phone] PCP - General Internal Medicine 05/10/22
--- OUTSIDE RECORDS SUMMARY | 2025-05-02 14:29 | XMS_ITS | Encounter Summary ---
Author Organization [facility] Address [address] [place] [address] Care Team Providers Care Behavioral Instructor Name Role Phone Nolvia Olivares MD, Butch Sanches Primary Care Provider Reason for Visit * Reason Onset Date Comments Chest pain, passed out 07/12/2022 Spoke W/ Tammie at Dr. Downs's office Encounter Details Date Type Department Care Team (Late st Contact Info) Description 07/12/2022 Telephone [facility] Admitting [address] [place] [address] [place] [address] [phone] Chest pain, passed out (Spoke [...] Coronavirus/COVID-19? No / Unsure 07/11/2022 5:52 PM FUEL CELL TECHNICIAN documented as of this encounter Plan of Treatment Not on file documented as of this encounter Visit Diagnoses Not on filedocumented in this encounter Care Teams Behavioral Instructor Relationship Specialty Start Date End Date Butch De Souza Jr., MD [address] [place] [phone] PCP - General Internal Medicine 05/10/22 documented as of this encounter
--- OUTSIDE RECORDS SUMMARY | 2025-05-02 14:29 | XMS_ITS | Encounter Summary ---
Author Organization [facility] Healthcare Address [address] [place] [address] Care Team Providers Care Utility Repairer Name Role Phone Swathi Golden RN Unavailable Unavailab Heydi Razo MD Primary Care Provider Heydi Hood MD Primary Care Provider Nolvia Olivares MD, Butch Cross Primary Care Provide r Sheri Mac MD Unavailable [phone] Yessica Worthy MD Unavailable [phone] Tonny Yoon MD Unavailable Cortney García RN Unavailable [phone] Ajay Downs MD Unavailable Grey Hand RN Unavailable [phone] Kodi Griggs MD Unavailable Encounter Details Date Type Department Care Team (Late st Contact Info) Description 11/06/2017 Orders Only [facility] Health Information Management [address] [place] [id number] Scanning, Provider Social History Tobacco Use Types Packs/Day Years Used Date Smoking Tobacco: Never Smokeless Tobacco: Never Alcohol Use Standard Drinks/Week Comments No 0 (1 standard drink = 0.6 oz pur e alcohol) Sex and Gender Information Value Date Recorded Sex Assigned at Not on file Legal Sex Male 11:58 PM CQ DEVELOPER Gender Identity Not on file Sexual Orientation [...] COVID: Suspected 06/14/2021 06/14/2021 06/14/2021 7:24 PM CQ DEVELOPER COVID: Suspected 01/16/2022 01/16/2022 01/16/2022 7:20 PM CDT COVID: Suspected 08/22/2022 08/22/2022 08/22/2022 9:42 AM CQ DEVELOPER COVID: Suspected 08/04/2024 08/04/2024 08/04/2024 3:41 PM CQ DEVELOPER COVID: Suspected 08/05/2024 08/05/2024 08/05/2024 1:23 PM CQ DEVELOPER Rhino/Enterovirus 11/08/2024 11/08/2024 11/15/2024 3:05 AM CDT documented as of this encounter Care Teams Utility Repairer Relationship Specialty Start Date End Date Heydi Hood MD [address] [place] [address] [address] [facility] [address] [place] [address] PCP - General Family Medicine 03/03/21 06/13/21 Heydi Hood MD [address] [facility] [address] [place] [address] PCP - General 06/14/21 06/16/21 Butch De Souza Jr., MD [address] [place] [address] PCP - General Internal Medicine 06/17/21 Swathi Golden, RN Registered Nurse 04/15/19 01/18/23 Sheri Mac MD [address] [address] Endocrinology 06/17/21 12/09/24 Yessica Worthy MD [address] [facility] [address] [place] [address] Referring Physician Rheumatology 06/17/21 [place] [address] [place] [address] Consulting Physician Gastroenterology 06/17/21 Cortney García, LEBRON [address] [place] [address] [facility] [address] [place] [address] Substation Operator Apprentice 11/09/23 05/30/24 [place] [address] [facility] [address] [place] [address] Consulting Physician Cardiovascular Disease 07/09/24 Grey Hand, LEBRON [address] [place] [address] [facility] [address] [place] [address] Substation Operator Apprentice 08/12/24 [place] [address] [facility] [address] [place] [address] Consulting Physician Pulmonary Disease 12/10/24 documented as of this encounter
--- OUTSIDE RECORDS SUMMARY | 2025-05-02 14:29 | XMS_ITS | Clinical Summary ---
Author Organization [facility] Address [facility] [place] [address] Care Team Providers Care Mold Engraver Name Role Phone Nolvia Olivares MD, Butch Sunday Primary Care Pro vider Allergies Active Allergy Reactions Criticality Noted Date Comments Aripiprazole Nausea and Vomiting,Nausea Only,Unknown Medium 06/04/2014 Other reaction(s): WATCHER LOOKOUT TOWER Dysfunction Hydroxychloroquine Eyes Water & Itch,Other (see [...] Comments Blood Pressure 169/82 07/10/2023 7:30 AM ENGINEERING MANAGER ELECTRONICS Pulse 71 07/10/2023 7:30 AM ENGINEERING MANAGER ELECTRONICS Temperature 36.6 C (97.8 F) 07/10/2023 4:16 AM ENGINEERING MANAGER ELECTRONICS Respiratory Rate 22 07/10/2023 7:30 AM ENGINEERING MANAGER ELECTRONICS Oxygen Saturation 95% 07/10/2023 7:30 AM ENGINEERING MANAGER ELECTRONICS Inhaled Oxygen Concentration - - Weight 140.6 kg (310 lb) 07/02/2023 6:06 PM ENGINEERING MANAGER ELECTRONICS Height 191.8 cm (6' 3.5) 07/02/2023 6:06 PM ENGINEERING MANAGER ELECTRONICS Body Mass Index 38.24 07/02/2023 6:06 PM ENGINEERING MANAGER ELECTRONICS Plan of Treatment Health Maintenance Due Date [...] age to complete this topic Insurance [facility]ARE [facility] Care Teams Mold Engraver Relationship Specialty Start Date End Date Butch De Souza Jr., MD [address] [place] [id number] PCP - General HOSPITALIST 07/10/23
--- OUTSIDE RECORDS SUMMARY | 2025-05-02 14:29 | XMS_ITS | Encounter Summary ---
Author Organization [facility] Address [address] [place] [address] Phone Care Team Providers Care Air Conditioning Insulation Installer Name Role Phone Swathi Golden RN Unavailable Unavailab Heydi Razo MD Primary Care Provider Heydi Hood MD Primary Care Provider Nolvia Olivares MD, Butch Cross Primary Care Provide r Sheri Mac MD Unavailable Yessica Worthy MD Unavailable Tonny Yoon MD Unavailable [phone] Cortney García RN Unavailable [phone] Ajay Downs MD Unavailable [phone] Grey Hand RN Unavailable [phone] Kodi Griggs MD Unavailable Encounter Details Date [...] on file Legal Sex Male 11:58 PM CLUB LOUNGE ATTENDANT Gender Identity Not on file Sexual Orientation [...] COVID: Suspected 06/14/2021 06/14/2021 06/14/2021 7:24 PM CLUB LOUNGE ATTENDANT COVID: Suspected 01/16/2022 01/16/2022 01/16/2022 7:20 PM CDT COVID: Suspected 08/22/2022 08/22/2022 08/22/2022 9:42 AM CLUB LOUNGE ATTENDANT COVID: Suspected 08/04/2024 08/04/2024 08/04/2024 3:41 PM CLUB LOUNGE ATTENDANT COVID: Suspected 08/05/2024 08/05/2024 08/05/2024 1:23 PM CLUB LOUNGE ATTENDANT Rhino/Enterovirus 11/08/2024 11/08/2024 11/15/2024 3:05 AM CDT documented as of this encounter Care Teams Air Conditioning Insulation Installer Relationship Specialty Start Date End Date Heydi Hood MD [address] [facility] [address] [place] [address] PCP - General Family Medicine 03/03/21 06/13/21 Heydi Hood MD [address] [facility] [address] [place] [address] PCP - General 06/14/21 06/16/21 Butch De Souza Jr., MD [address] [address] PCP - General Internal Medicine 06/17/21 Swathi Golden, RN Registered Nurse 04/15/19 01/18/23 Sheri Mac MD [address] [address] Endocrinology 06/17/21 12/09/24 Yessica Worthy MD [address] [facility] [address] [place] [address] Referring Physician Rheumatology 06/17/21 [place] [address] [place] [address] Consulting Physician Gastroenterology 06/17/21 Cortney García, LEBRON [address] [facility] [address] [place] [address] Loom Starter 11/09/23 05/30/24 [place] [address] [facility] [address] [place] [address] Consulting Physician Cardiovascular Disease 07/09/24 Grey Hand, LEBRON [address] [place] [address] [facility] [address] [place] [address] Loom Starter 08/12/24 [place] [address] [facility] [address] [place] [address] Consulting Physician Pulmonary Disease 12/10/24 documented as of this encounter
--- OUTSIDE RECORDS SUMMARY | 2025-05-02 14:29 | XMS_ITS | Clinical Summary ---
Author Organization [facility] Exposed Vocals Address [address] [place] [address] Care Team Providers Care Assistant Clinical Director Name Role Phone Ajay Childs MD Unavailable [phone] Nolvia Olivares MD, Butch Sanches Primary Care Provider Source Comments [facility],non-owned Affiliates and Associated Physician Practices is amultiple site organization consisting of ambulatory clinics and hospital sitesin [place], [place], [place] and [place]. This disclosure is being madepursuant to the Care Everywhere program and may not contain all information available regarding this patient. Last updated 18.[facility] Exposed Vocals Allergies Active Allergy Reactions Criticality Noted Date Comments Aripiprazole SCREW MACHINE OPERATOR Dysfunction 10/17/2017 Zolpidem Other Low 07/10/2014 [...] loop recorder check 07/09/2019 Overview (07/09/2019): ANDREA [id number] Implanted 07/08/2019 Dr Muñiz PAF (paroxysmal atrial [...] and heating? Not hard at all 06/02/2023 [facility] - Occupational Stress [...] slept in a fdc (including now)? No 06/02/2023 Sex and Gender Information Value Date Recorded Sex Assigned at Not on file Legal Sex Male 6:06 AM WHITE SIDEWALL TIRE BUFFER Gender Identity Not on file Sexual Orientation Not on file Last Filed Vital Signs Vital Sign Reading Time Taken Comments Blood Pressure 128/74 06/21/2023 5:27 PM WHITE SIDEWALL TIRE BUFFER Pulse 74 06/21/2023 5:27 PM WHITE SIDEWALL TIRE BUFFER Temperature 36.4 C (97.5 F) 06/21/2023 5:27 PM WHITE SIDEWALL TIRE BUFFER Respiratory Rate 17 06/21/2023 5:27 PM WHITE SIDEWALL TIRE BUFFER Oxygen Saturation 98% 06/21/2023 5: 27 PM WHITE SIDEWALL TIRE BUFFER Inhaled Oxygen Concentration - - Weight 141.3 kg (311 lb 9.6 oz) 06/02/2023 7:21 AM WHITE SIDEWALL TIRE BUFFER Height 190.5 cm (6' 3) 06/02/2023 7:21 AM WHITE SIDEWALL TIRE BUFFER Body Mass Index 38.95 06/02/2023 7:21 AM WHITE SIDEWALL TIRE BUFFER Plan of Treatment Health Maintenance Due Date [...] this topic Medical Devices Implanted Type Area Diagnostics Sales Developer Device Identifier Shelf Expiration Date Model / Serial / Lot Graft Tissue Drgn + Bvn Clgn Mtrx 2x2in Implanted:Qty: 1 on 09/13/2018 by Jackson Norwood MD at [facility] [employer] 07/02/2021 [id number] / / [id number] Cmpnt Fem Kn Rt Cr Cmnt Prm Vngrd Intlk Implanted:Qty: 1 on 03/13/2023 by Miko Pérez MD at [facility] Right: Knee [employer] 12/13/2032 [id number] / / [id number] Cmnt Bone Plc R 40gm Grn Implanted:Qty: 1 on 03/13/2023 by Miko Pérez MD at [facility] Right: Knee [employer] 07/02/2025 [id number] / / [id number] Cmnt Bone Plc R 40gm Grn Implanted:Qty: 1 on 03/13/2023 by Miko Pérez MD at [facility] Right: Knee [employer] 07/02/2025 [id number] / / [id number] Tray Tib 83mm As Mx Kn Intlk Cocr 1 Pc Implanted:Qty: 1 on 03/13/2023 by Miko Pérez MD at [facility] Right: Knee [employer] 02/08/2032 [id number] / / [id number] Cmpnt Ptlr Std 37mm 3 Pg Kn Ser A Implanted:Qty: 1 on 03/13/2023 by Miko Pérez MD at [facility] Right: Knee [employer] 03/21/2027 [id number] / / [id number] Pancho Brng [id number] Vivacit-E Kn Ant Stab Implanted:Qty: 1 on 03/13/2023 by Miko Pérez MD at [facility] Right: Knee [employer] 05/17/2027 [id number] BILL ONLY / / [id number] Tray Tib 83mm As Mx Kn Intlk Cocr 1 Pc Implanted:Qty: 1 on 06/02/2023 by Miko Pérez MD at [facility] Left: Knee [employer] 11/08/2032 [id number] / / [id number] Cmpnt Fem Kn Lt Cr Cmnt Prm Vngrd Intlk Implanted:Qty: 1 on 06/02/2023 by Miko Pérez MD at [facility] Left: Knee [employer] 04/08/2033 [id number] / / [id number] Cmpnt Ptlr Std 34mm 3 Pg Kn Ser A Implanted:Qty: 1 on 06/02/2023 by Miko Pérez MD at [facility] Left: Knee [employer] 06/29/2027 [id number] / / [id number] Pancho [employer]ng [id number] Vngrd Arcm Kn Ant Stab Implanted:Qty: 1 on 06/02/2023 by Miko Pérez MD at [facility] Left: Knee [employer] 11/19/2024 [id number] BILL ONLY / / [id number] Cmnt Bone Plc R 40gm Grn Implanted:Qty: 1 on 06/02/2023 by Miko Pérez MD at [facility] Left: Knee [employer] 08/30/2025 [id number] / / [id number] Cmnt Bone Plc R 40gm Grn Implanted:Qty: 1 on 06/02/2023 by Miko Pérez MD at [facility] Left: Knee [employer] 10/30/2025 [id number] / / [id number] Procedures Procedure Name Priority Date/Time Associated Diagnosis Comments BASIC METABOLIC PANEL (CALCIUM TOTAL) STAT 06/02/2023 7:31 AM WHITE SIDEWALL TIRE BUFFER Preop examination from Last 3 Months or Most Recently Relevant to Health Maintenance Results * (ABNORMAL) BASIC METABOLIC PANEL (CALCIUM TOTAL) (06/02/2023 7:31 AM WHITE SIDEWALL TIRE BUFFER) [facility] Glucose 86 70 - 105 mg/dL 06/02/2023 7:57 AM WHITE SIDEWALL TIRE BUFFER [facility] Sodium 139 136 - 145 mmol/L 06/02/2023 7:57 AM [facility] Potassium 3.2(L) 3.5 - 5.1 mmol/L 06/02/2023 7:57 AM [facility] Chloride 110(H) 98 - 107 mmol/L 06/02/2023 7:57 AM [facility] CO2 20(L) 22 - 29 mmol/L 06/02/2023 7:57 AM [facility] Calcium 8.6 8.4 - 10.4 mg/dL 06/02/2023 7:57 AM [facility] Anion Gap 9 6 - 16 mmol/L 06/02/2023 7:57 AM [facility] BUN 18 7 - 26 mg/dL 06/02/2023 7:57 AM [facility] Creatinine 0.93 0.72 - 1.25 mg/dL 06/02/2023 7:57 AM [facility] eGFR by CKD-EPI >90 >=90 mL/min/1.7 3 m2 06/02/2023 7:57 AM [facility] Blood BLOOD SPECIMEN / Unknown Venipuncture / Unknown 06/02/2023 7:31 AM WHITE SIDEWALL TIRE BUFFER 06/02/2023 7:42 AM [facility] Jeanie Valdovinos DO LAB - CHEMISTRY ORDERABLES Jyothi durant Result [facility] [address] [place] [address] from Last 3 Months or Most Recently Relevant to Health Maintenance [facility] [id number] [id number] MEDICARE [employer]TH[employer] Advance Directives * Full Code [...] 11:27 PM 09/13/2018 11:27 PM Care Teams Assistant Clinical Director Relationship Specialty Start Date End Date Butch De Souza Jr., MD [address] [place] [address] PCP - General Internal Medicine 02/21/23 Ajay Childs MD [address] [place] [address] Cardiovascular Disease 04/19/19
--- OUTSIDE RECORDS SUMMARY | 2025-05-02 14:29 | XMS_ITS | Clinical Summary ---
Author Organization [facility] Address [address] [address] Care Team Providers Care Service Coordinator Name Role Phone Nolvia Olivares MD, Butch Cross Primary Care Provide r Yessica Worthy MD Unavailable Tonny Yoon MD Unavailable Ajay Downs MD Unavailable Grey Hand RN Unavailable Kodi Griggs MD Unavailable Allergies Active Allergy Reactions Criticality Noted Date Comments Aripiprazole Nausea Only Medium 06/04/2014 COMMISSIONING MANAGER Dysfunction Ethchlorvynol Unknown 10/20/2023 Hydrocodone Agitation Low [...] cardiology Assessment & Plan (08/19/2024 6:[address] MECHANIC): Continue to take Ranexa/imdur Follows with cardiology Assessment & Plan (07/11/2024 1:[address] MECHANIC): Continue to take Ranexa/imdur Follows with cardiology Lumbar post-laminectomy syndrome 01/22/2024 Spinal stenosis of lumbar re gion with neurogenic claudication 01/08/2024 Assessment & Plan (10/23/2024 2:08 PM CDT): Will continue to follow up with PEE Continue roxicodone prn Assessment & Plan (08/19/2024 6:[address] MECHANIC): Seeing PEE, however several things continue to [...] and establishing or updating healthcare power of estate attorney document and providing our office with [...] and establishing or updating healthcare power of estate attorney document and providing our office with [...] and establishing or updating healthcare power of estate attorney document and providing our office with a copy. PTSD (post-traumatic stress disorder) 08/22/2022 Assessment & Plan (08/19/2024 6:[address] MECHANIC): Continue medications as prescribed, cymbalta seroquel Assessment & Plan (10/20/2022 1:30 PM CDT): Will contact aSba Dougherty Psychophysiological insomnia 08/22/2022 Assessment & Plan (09/05/2022 10:[address] MECHANIC): Having issues with sleep Has issues [...] specialists Assessment & Plan (06/22/2023 7:[address] MECHANIC): His improved sense of well-being following [...] fibrosis. Assessment & Plan (06/09/2022 4:[address] MECHANIC): Assessment & Plan (09/16/2021 11:09 AM CDT): Monitor LFTs Cervical spinal stenosis 05/21/2020 Assessment & Plan (10/23/2024 2:12 PM CDT): Following NSY Takes roxicodone Assessment & Plan (07/11/2024 1:[address] MECHANIC): Seeing PEE, surgery latter this month Spondylosis of cervical joint without myelopathy 05/21/2020 Chronic pain syndrome 05/13/2019 Prediabetes 04/18/2019 Assessment & Plan (09/16/2021 11:06 AM CDT): Continue ozempic, increase dosage Assessment & Plan (07/16/2021 10:[address] MECHANIC): Continue taking ozempic as prescribed by [...] dose Assessment & Plan (06/17/2021 8:[address] MECHANIC): Continue stsatin Assessment & Plan (05/14/2020 4:[address] MECHANIC): Low fat low chol diet Continue [...] Ranexa Assessment & Plan (07/11/2024 1:[address] MECHANIC): Has difficulty controlling this at times Continue HCTZ, metoprolol, Ranexa Assessment & Plan (05/24/2024 10:[address] MECHANIC): Ongoing. Do not use OTC medications [...] Continue Amlodipine and Sotalol. Rheumatoid arthritis of [facility] sites with negative rheumatoid factor 12/04/2017 Assessment & Plan (10/23/2024 2:05 PM CDT): Continue leflunomide Assessment & Plan (08/19/2024 6:[address] MECHANIC): Continue leflunomide Assessment & Plan (07/11/2024 1:[address] MECHANIC): Continue leflunomide Assessment & Plan (10/23/2023 1:22 PM CDT): Continue leflunomide Assessment & Plan (10/20/2022 1:29 PM CDT): Chronic stable Well controlled Continue current prescribed medications at current dose Assessment & Plan (08/16/2022 10:[address] MECHANIC): Continue follow-up with rheum and pain management Assessment & Plan (06/17/2021 9:[address] MECHANIC): Holding off on medications because the [...] tomorrow Assessment & Plan (08/19/2024 6:[address] MECHANIC): Chronic stable Well controlled Continue current prescribed medications metoprolol and diltiazem at current dose Assessment & Plan (07/11/2024 1:[address] MECHANIC): Chronic stable Well controlled Continue current prescribed medications metoprolol and diltiazem at current dose Assessment & Plan (04/25/2024 3:27 PM CDT): Chronic stable Well controlled Continue current prescribed medications metoprolol and diltiazem at current dose Assessment & Plan (02/02/2024 10:14 AM CDT): Intermittent. Currently under evaluation by Cardiology. Patient advised to notify neurosurgical nurse practitioner a recent ED visit and schedule follow-up [...] dose Assessment & Plan (06/17/2021 8:[address] MECHANIC): S/p abalation Has not had issues [...] seroquel Assessment & Plan (08/19/2024 6:[address] MECHANIC): Weight is stable Monitor Related to his seroquel Assessment & Plan (07/11/2024 1:[address] MECHANIC): Weight is stable Monitor Related to his seroquel Assessment & Plan (05/24/2024 10:[address] MECHANIC): Work on attempts to lose weight [...] inspire Assessment & Plan (07/11/2024 1:[address] MECHANIC): 10 years ago was dx, his CPAP got recalled never able to get it back Was told perhaps he could get inspire Resolved Problems Problem Noted Date Diagnosed Date Resolved Date NSVT (nonsustained ventricular tachycardia) 10/16/2024 10/23/2024 Dizziness 07/31/2024 08/16/2024 NSVT (nonsustained ventricular tachycardia) 07/30/2024 08/16/2024 Ascending aortic aneurysm, u nspecified whether ruptured 07/11/2024 07/11/2024 Assessment & Plan (07/11/2024 1:[address] MECHANIC): Continue medications as prescribed stable Class [...] 10/23/2023 Assessment & Plan (09/05/2022 10:[address] MECHANIC): No longer having chest pain Feels [...] 6 weeks with AP/Flexion/Extension Lumbar spine films. 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 05/13/2019 08/16/2022 Radiculopathy, lumbosacral region 05/06/2019 10/23/2024 Vitamin B12 deficiency 08/07/201808/16 Intractable migraine with au ra without status migrainosus 05/28/2018 08/16/2022 Insulin resistance 05/01/2018 Assessment & Plan (06/17/2021 9:[address] MECHANIC): Will monitor Hgba1c and sugar levels Assessment & Plan (05/14/2020 4:[address] MECHANIC): Diet and exercise Check hba1c Assessment [...] HLD Assessment & Plan (09/05/2022 10:[address] MECHANIC): Monitor BMI Assessment & Plan (08/16/2022 10:[address] MECHANIC): Monitor weight Has HTN, HLD, ZAMORA Assessment & Plan (09/16/2021 11:07 AM CDT): Working on weight loss Will increase ozempic Assessment & Plan (07/16/2021 10:[address] MECHANIC): Continue to monitor weight Assessment & Plan (06/17/2021 9:[address] MECHANIC): Will try wegovy, should help with [...] Type Department Care Team Description 05/02/[address] [facility] Medicine Cardiology [address] [facility] 8th [place] [address] [place] [address] Estuardo Aquino MD 04/17/2025 Results Follow-Up [facility] Cardiology [address] [facility] 8th [place] [address] [place] [address] Hyacinth Burgess NP ECG 12 lead 04/10/2025 9:30 AM CDT Office Visit [facility] [address] [place] [address] [address] [address] Genesis Aguirre MD Obstructive sleep apnea syndrome (Primary Dx); Hypersomnia with sleep apnea; Morbid obesity with BMI of 40.0-44.9, adult (HCC) 04/01/2025 3:00 PM CDT Office Visit [facility] Medicine Cardiology [address] [facility] 8th [place] [address] [place] [address] Hyacinth Burgess NP PVC (premature ventricular contraction) (Primary Dx); Encounter for monitoring flecainide therapy; Paroxysmal atrial fibrillation (HCC) 04/01/2025 2:30 PM CDT Ancillary Procedure [facility] Medicine Cardiology Formerly [facility] [facility] 8th [place] [address] [place] [address] Encounter for loop recorder check; NSVT (nonsustained ventricular tachycardia) (HCC) 03/21/2025 1:00 PM CDT Office Visit [facility] [address] [place] [address] [place] [phone] Yenni Do NP Primary hypertension (Primary Dx); NSVT (nonsustained ventricular tachycardia) (HCC); Rheumatoid arthritis of multiple sites with negative rheumatoid factor (HCC); Chronic, continuous use of opioids; Psychophysiologica l insomnia; Chronic pain syndrome; Weight gain 03/20/2025 Nurse Triage [address] [place] [phone] Butch De Souza Jr., MD 03/14/2025 Telephone [facility] Infusion Therapy [address] [facility] [address] [place] [address] Tsering Rivera RN 03/14/2025 Nurse Triage [address] [place] [phone] Butch De Souza Jr., MD 03/10/[address] [place] [phone] Butch De Souza Jr., MD Medication Request 03/04/2025 7:33 AM CDT Anesthesia Event [facility] Electrophysiology Lab 1 [place] [address] Tatiana Tillman MD Montgomery, Andrea J., NP 03/04/2025 7:30 AM CDT - 03/04/2025 3:50 PM CDT Surgery [facility] Electrophysiology [facility] 1 [place] [address] Estuardo Aquino MD ABLATION VENTRICULAR TACHYCARDIA (VT) INCLUDES 3D MAPPING (WHEN USED) [address] 03/04/2025 6:14 AM CDT - 03/05/2025 10:13 AM CDT Hospital Encounter [address] [phone] Estuardo Aquino MD Neilson, Nathan Andrew, MD NSVT (nonsustained ventricular tachycardia) (HCC); PVC (premature ventricular contraction) Discharge Disposition: Discharge to home or self care 02/28/2025 9:30 AM CDT Pre-Admission Testing [facility] Preoperative Assessment and Planning [facility] ([facility]) [address] [place] [address] Preoperative testing (Primary Dx); NSVT (nonsustained ventricular tachycardia) (HCC); PVC (premature ventricular contraction) 02/25/2025 9:47 AM CDT Anesthesia Event [facility] Radiology 1 [place] [address] Basia Tracey MD 02/25/2025 7:12 AM CDT - 02/25/2025 11:59 PM CDT Hospital Encounter [facility]iology [address] [place] [address] Basia Tracey MD Reynolds, Troy Wayne, CRNA NSVT (nonsustained ventricular tachycardia) (HCC) Discharge Disposition: Discharge to home or self care 02/21/[address] [facility] Medicine Cardiology [facility] 8th [place] [address] [place] [address] Estuardo Aquino MD 02/14/2025 Orders Only [facility] Health Information Management [address] [place] [address] Scanning, Provider 02/12/2025 7:00 PM CDT - 02/12/2025 11:59 PM CDT Hospital Encounter [facility] [address] [place] [address] Obstructive sleep apnea syndrome Discharge Disposition: Discharge to home or self care 02/10/2025 11:30 AM CDT Office Visit [facility] [address] [facility] [address], [address] [place] [address] Benjamin Fairbanks MD S/P lumbar spine operation (Primary Dx) 02/10/2025 [facility] IP Outreach [address] [address] Mona Green MA 01/30/2025 10:30 AM CDT Office Visit [facility] [address] [facility] [address] [place] [phone] Genesis Aguirre MD Hypersomnia with sleep apnea [...] TACHYCARDIA (VT) INCLUDES 3D MAPPING (WHEN USED) [address]; Surgeon: Estuardo Aquino MD; Location: [facility]; Service: Cardiovascular; Laterality: N/A; Medical devices from this surgery are in the Medical Devices section. CARDIAC ELECTROPHYSIOLOGY PROCEDURE 03/04/2025 N/A Procedure: LEFT HEART CATHETERIZATION TRANSEPTAL PUNCTURE (+) 17816; Surgeon: Estuardo Aquino MD; Location: [facility]; Service: Cardiovascular; Laterality: N/A; Medical [...] drink = 0.6 oz pur e alcohol) [facility] Utilities Answer Date Recorded In [...] often do you attend chur ch or scientologist services? Never 11/11/2024 Do you belong to any clubs o r organizations such as christianity groups, unions, fraternal or athletic groups, or [...] slept in a retirement (including now)? No 11/18/2023 PHQ-9 Answer Date [...] in the past [address] [facility], were you homeless or living in a retirement (including now)? No 11/11/2024 AUDIT-C Answer Date [...] on file Legal Sex Male 11:[address]CHANIC Gender Identity Not on file Sexual [...] of instructions. Medical Devices Implanted Type Area Hotel Operation Manager Device Identifier Shelf Expiration Date Model / Serial / Lot [employer] Vascade Mvp 6-12fr Venous Closure [id number] - [id number] - [id number] Implanted:Qty: 1 on 03/04/2025 by Genaro Joseph MD at [facility] Collagen Left: Femoral Vein [employer] 11/25/2026 800-612 C-10U / [id number] / [id number] [employer] Vascade Mvp 6-12fr Venous Closure [id number] - [id number] - [id number] Implanted:Qty: 1 on 03/04/2025 by Genaro Joseph MD at [facility] Collagen Left: Femoral Vein [employer] 11/25/2026 800-612 C-10U / [id number] / [id number] [employer] Vascade Mvp 6-12fr Venous Closure [id number] - [id number] - [id number] Implanted:Qty: 1 on 03/04/2025 by Genaro Joseph MD at [facility] Collagen Left: Femoral Vein [employer] 11/25/2026 800-612 C-10U / [id number] / [id number] [employer] Vascade Mvp 6-12fr Venous Closure [id number] - [id number] - [id number] Implanted:Qty: 1 on 03/04/2025 by Genaro Joseph MD at [facility] Collagen Left: Femoral Vein [employer] 11/25/2026 800-612 C-10U / [id number] / [id number] Implantable Loop Recorder Implantable Loop Recorder Chest Wall Loop Recorder Chest Wall [employer] [id number] / [id number] / Description:[email or web address] ^ MRI safety [...] AM CDT NSVT (nonsustained ventricular tachycardia) (HCC) MS AN PROCEDURE PLACEHOLDER Routine 02/25/2025 11:01 AM CDT MS AN ELECTIVE ENDOTRACHEAL AIRWAY Routine 02/25/2025 11:01 AM CDT SCAN - RADIOLOGY/IMAGING 02/14/2025 PSG (COMPLEX) Routine 02/13/2025 7:58 AM CDT Obstructive sleep apnea syndrome PSA SCREEN Routine 10/23/2024 2:14 PM CDT Encounter for Medicare annual wellness exam HEPATITIS PANEL, ACUTE Routine 9:[address]CHANIC Hypokalemia Elevated LFTs HM COLONOSCOPY Routine 11/17/2023 from Last 3 Months or Most Recently Relevant to Health Maintenance Results * ECG 12 lead (04/16/2025 10:27 AM CDT) us Hyacinth Burgess WOOL WASHER FEEDER ECG ORDERABLES Edited Re sult - Final [...] suggest bigeminy and SR with PVCs AT/AF [place]: 0% Programming Changes: No changes Plan: Follow up as recommended by WOOL WASHER FEEDER. Requested pt be released to our clinic on [employer] website. Procedure Note Dario Zarate MD - 04/01/2025 In-clinic interrogation of ILR Incision Site: Left pectoral site without inflammation or adherence Device Functionality Device: Normal function Battery status: 59.5% Interrogation Presenting rhythm: VS 75 bpm Heart rate histograms: stable Episodes 7 symptom episodes, EGMs suggest bigeminy and SR with PVCs AT/AF [place]: 0% Programming Changes: No changes Plan: Follow up as recommended by WOOL WASHER FEEDER. Requested pt be released to ourinic on [employer] website. Estuardo Aquino MD CV CARDIAC SERVI BALTA PROCEDURES Final Result * (ABNORMAL) POC Activated Clotting Time, High Range (03/04/2025 1:27 PM CDT) ACT 175(H) 87 - 138 sec POC Device Number [id number] [facility] Blood 03/04/2025 1:27 PM CDT 03/04/2025 1:27 PM CDT Estuardo Aquino MD LAB BLOOD ORDERA BLES Final Result [facility] Department [place] [address] * ABLATION VT, LEFT HEART CATHETERIZATION TRANSEPTAL [...] Catheter-based radiofrequency ablation was performed using a [employer] power generator. Target power was 30 Davis. [...] 12:38pm PROCEDURE: PVC/VENTRICULAR TACHYCARDIA ABLATION HPI London Menenedz is a 64 y.o. year old male [...] Cardiac radioablation Procedure [x] VT Ablation procedure (68057) -- includes 3D mapping [] +LA/CS pacing (93554) [x] +Intracardiac ultrasound (04459) [] +Transseptal (29994) [x] +IV drug (31365) [] +Other Arrhythmia (31730) Preoperative Cardiac Imagin02/25/25 Cardiac MRI Estuardo Aquino MD CV ELECTROPHYSIO LOGY PROCS Final Result * (ABNORMAL) POC Activated Clotting Time, High Range (03/04/2025 9:39 AM CDT) ACT 321(H) 87 - 138 sec POC Device Number [id number] [facility] Blood 03/04/2025 9:39 AM CDT 03/04/2025 9:39 AM CDT Estuardo Aquino MD LAB BLOOD ORDERA BLES Final Result [facility] Department [place] [address] * (ABNORMAL) POC Activated Clotting Time, High Range (03/04/2025 9:09 AM CDT) ACT 348(H) 87 - 138 sec POC Device Number [id number] [facility] Blood 03/04/2025 9:09 AM CDT 03/04/2025 9:09 AM CDT Estuardo Aquino MD LAB BLOOD ORDERA BLES Final Result [facility] [place] [address] * (ABNORMAL) POC Activated Clotting Time, High Range (03/04/2025 8:58 AM CDT) Pathologist [facility] ACT 222(H) 87 - 138 sec POC Device Number [id number] [facility] Blood 03/04/2025 8:58 AM CDT 03/04/2025 8:58 AM CDT us Estuardo Aquino MD LAB BLOOD ORDERA BLES Final Result Performing Organization Address City/[facility]/ZIP Co de Phone Number [facility] [place] [address] * (ABNORMAL) POC Activated Clotting Time, High Range (03/04/2025 8:49 AM CDT) [facility] ACT 195(H) 87 - 138 sec POC Device Number [id number] [facility] Blood 03/04/2025 8:49 AM CDT 03/04/2025 8:49 AM CDT us Estuardo Aquino MD LAB BLOOD ORDERA BLES Final Result [facility] [place] [address] * ECG 12 lead (03/04/2025 7:16 AM CDT) [facility] Ventricular Rate EKG/Min 72 BPM [facility] Atrial Rate 72 BPM [facility] MS-Interval (MSEC) 160 ms [facility] QRS-Interval (MSEC) 90 ms [facility] QT-Interval (MSEC) 496 ms [facility] QTc 543 ms [facility] P [place] 75 degrees [facility] R [place] 19 degrees [facility] T [place] 14 degrees [facility] Diagnosis Sinus rhythm with frequent Premature ventricular complexes in a pattern of bigeminy Nonspecific ST abnormality Prolonged QT Abnormal ECG When compared with ECG of 28-FEB-2025 08:29, PREVIOUS ECG IS PRESENT Confirmed by KORINA ANDRADE M.D ([id number]) on 03/05/2025 3:35:33 PM [facility] 03/04/2025 7:16 AM CDT 03/05/2025 3:35 PM CDT Estuardo Aquino MD ECG ORDERABLES Final Result [facility] * Urinalysis reflex to microscopic (02/28/2025 9:25 AM CDT) Color, ur Yellow Yellow Clarity, ur Clear Clear [facility] Specific gravity, ur 1.029 1.003 - 1.030 [facility] pH, urine 6.0 [facility] Comment: Interpretive Data U rine pH is affected by diet, medications, systemic acid-base disturbances, and renal tubular function. pH may affect urinary stone formation. For example, urine pH below 6.0 may help reduce the tendency for calcium phosphate stones and pH greater than 6.0 may reduce the tendency for uric acid stone formation. Source: [facility] Current Interpretive Data was last revised on 2017 Protein, ur ql Trace Negative [facility] Glucose, ur ql Negative Negative [facility] Ketones, ur Negative Negative [facility] Bilirubin, ur Negative Negative [facility] Blood, ur Negative Negative [facility] Urobilinogen, ur <2.0 <2.0 mg/dL [facility] Nitrite, ur Negative Negative [facility] Leukocyte esterase, ur Negative Negative [facility] UA reflex comment Reflex conditions for microscopic UA not met. [facility] Urine 02/28/2025 9:25 AM CDT 02/28/2025 9:51 AM CDT Estuardo Aquino MD LAB URINE ORDERA BLES Final Result Performing Organization Address City/[facility]/ZIP Co de Phone Number [facility] Department [place] [address] * eGFR (02/28/2025 9:23 AM CDT) Pathologist [...] MD LAB BLOOD ORDERA BLES Final Result [facility] Department [place] [address] * CBC without differential (02/28/2025 9:23 AM CDT) [facility] WBC 6.90 3.80 - 9.90 K/cumm Hgb 15.4 13.0 - 17.5 g/dL [facility] Hct 44.7 38.9 - 50.3 % [facility] Plt 221 150 - 400 K/cumm [facility] MPV 10.8 9.1 - 12.3 fL [facility] RBC 5.39 4.30 - 5.80 M/cumm [facility] MCV 82.9 81.3 - 96.4 fL [facility] MCH 28.6 27.1 - 33.3 pg [facility] MCHC 34.5 32.3 - 35.7 g/dL [facility] RDW CV 13.2 11.1 - 14.9 % [facility] RDW SD 39.4 35.7 - 48.1 fL [facility] NRBC abs 0.00 0.00 - 0.01 K/cumm [facility] Blood 02/28/2025 9:23 AM CDT 02/28/2025 9:53 AM CDT us Estuardo Aquino MD LAB BLOOD ORDERA BLES Final Result [facility] Department [place] [address] * Basic metabolic panel (02/28/2025 9:23 AM CDT) Sodium 143 135 - 145 mmol/L Potassium, pl 3.4 3.3 - 4.9 mmol/L [facility] Chloride 100 97 - 110 mmol/L [facility] CO2 31 22 - 32 mmol/L [facility] Anion gap 12 2 - 15 mmol/L [facility] BUN 23 6 - 25 mg/dL [facility] Creatinine 1.19 0.80 - 1.30 mg/dL [facility] Glucose 97 70 - 199 mg/dL [facility] Comment: Interpretive Data Fasting glucose >/= 126 [...] 2022. Calcium 9.6 8.5 - 10.3 mg/dL [facility] Blood 02/28/2025 9:23 AM CDT 02/28/2025 9:53 AM CDT us Estuardo Aquino MD LAB BLOOD ORDERA BLES Final Result Performing Organization Address [facility] Co de Phone Number [facility] Department [place] [address] * ECG 12 lead (02/28/2025 8:29 AM CDT) Pathologist [facility] Ventricular Rate EKG/Min 71 BPM [facility] Atrial Rate 82 BPM [facility] MS-Interval (MSEC) 162 ms [facility] QRS-Interval (MSEC) 92 ms [facility] QT-Interval (MSEC) 474 ms [facility] QTc 515 ms [facility] P [place] 81 degrees [facility] R [place] 10 degrees [facility] T [place] 33 degrees [facility] Diagnosis Sinus rhythm with frequent Premature ventricular complexes and Premature atrial complexes Nonspecific ST abnormality Prolonged QT Abnormal ECG When compared with ECG of 11-NOV-2024 13:51, PREVIOUS ECG IS PRESENT Confirmed by KORINA ANDRADE M.D ([id number]) on 02/28/2025 1:37:15 PM [facility] 02/28/2025 8:29 AM CDT 02/28/2025 1:37 PM CDT us Anson Manley WOOL WASHER FEEDER ECG ORDERABLES Final Re sult Performing Organization Address [facility] de Phone Number [facility] * MRI Cardiac M&F W WO Contrast [...] IMG MRI PROCEDUR ES Final Result * MS AN ELECTIVE ENDOTRACHEAL AIRWAY, MS AN PROCEDURE PLACEHOLDER (02/25/2025 11:01 AM CDT) Narrative Theodore Cervantes CRNA - 02/25/2025 11:01 AM CDT Theodore Cervantes CRNA 02/25/2025 11:06 AM Airway Urgency: elective Date/time: 02/25/2025 9:56 AM Indications for airway management: anesthesia Difficult airway: no Staff: Supervising provider: Basia Tracey MD Placed by: CERAMIC SPRAYER: Theodore Cervantes CRNA Emergent airway documentation: Risks [...] continued 7. Avoid alcohol sedatives and other COMMISSIONING MANAGER depression that may worsen sleep apnea and [...] data last revised 21. Testing performed by: [facility], [address] [place] [address]., [id number] Blood 10/23/2024 2:14 PM CDT 10/23/2024 4:25 PM CDT us Butch De Souza Jr., MD LAB BLOOD ORDERABLES Final Result ELIF [address] [facility] Department [place] [address] * Hepatitis panel, acute Blood (07/19/2024 9:[address] MECHANIC) Hep A IgM Nonreactive Nonreactive Comment: [...] Nonreactive Nonreactive ELIF Blood 07/19/2024 9:[address] MECHANIC 07/19/2024 2:[address] MECHANIC Butch De Souza Jr., MD LAB MICROBIOLOGY - [facility] ORDERABLES Final Result ELIF [address] [facility] Department [place] [address] * (ABNORMAL) COLONOSCOPY (11/17/2023) Scribed Colonoscopy Abnormal Historical Provider HEALTH MAINTENANCE Final Result from Last 3 Months or Most Recently Relevant to Health Maintenance Insurance [facility]ARE [facility] MEDICARE [facility] MEDICARE [facility] Advance Directives For more information, please contact: [phone] Documents on File Type Date Recorded Patient Machine Bender Expl anation Power of Pile Driver 12/24/2024 5:17 AM * Full Code (Latest [...] 9:02 AM 11/17/2023 3:20 PM Care Teams Service Coordinator Relationship Specialty Start Date End Date Butch De Souza Jr., MD [address] [place] [id number] PCP - General Internal Medicine 06/17/21 [place] [address] [place] [address] Referring Physician Rheumatology 06/17/21 [place] [address] [place] [address] Consulting Physician Gastroenterology 06/17/21 [place] [address] [facility] [address] [place] [address] Consulting Physician Cardiovascular Disease 07/09/24 Grey Hand, LEBRON [address] [place] [address] [address] [place] [address] Business Services Manager 08/12/24 [place] [address] [facility] [facility] [address] [place] [address] Consulting Physician Pulmonary Disease 12/10/24
--- OUTSIDE RECORDS SUMMARY | 2025-05-02 14:29 | XMS_ITS | Encounter Summary ---
Author Organization [facility] Address [address] [place] [address] Phone Care Team Providers Care Music Mixer Name Role Phone Nolvia Olivares MD, Butch Cross Primary Care Provide r Yessica Worthy MD Unavailable [phone] Tonny Yoon MD Unavailable [phone] Ajay Downs MD Unavailable [phone] Grey Hand RN Unavailable Kodi Griggs MD Unavailable Encounter Details Date Type Department Care Team (Late st Contact Info) Description 05/02/2025 Telephone [facility] Medicine Cardiology [address] [facility] Advanced Medicine 8th [place] [address] [place] [id number] Estuardo Aquino MD [address] [facility] [address] [place] [address] Social History Tobacco Use Types Packs/Day Years Used Date Smoking Tobacco: Never Passive Smoke Exposure: Never Smokeless Tobacco: Never Alcohol Use Standard Drinks/Week Comments Never 0 (1 standard drink = 0.6 oz pur e alcohol) [facility] Utilities Answer Date Recorded In the past [...] often do you attend chur ch or caodaism services? Never 11/11/2024 Do you belong to any clubs o r organizations such as hinduism groups, unions, fraternal or athletic groups, or [...] place to sleep or slept in a prison (including now)? No 11/18/2023 PHQ-9 Answer Date [...] any time in the past 12 m [facility], were you homeless or living in a prison (including now)? 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 I let him know he will need [...] on filedocumented in this encounter Care Teams Music Mixer Relationship Specialty Start Date End Date Butch De Souza Jr., MD [address] [place] [address] PCP - General Internal Medicine 06/17/21 Yessica Worthy MD [address] [facility] [address] [place], [place] [id number] Referring Physician Rheumatology 06/17/21 [place] [address] [place] [address] Consulting Physician Gastroenterology 06/17/21 [place] [address] [facility] [address] [place] [address] Consulting Physician Cardiovascular Disease 07/09/24 Grey Hand RN [address] [place] [address] [facility] [address] [place] [address] Harness Fitter 08/12/24 [place] [address] [address] [place] [address] Consulting Physician Pulmonary Disease 12/10/24 documented as of this encounter
--- OUTSIDE RECORDS SUMMARY | 2025-05-02 14:29 | XMS_ITS | Clinical Summary ---
Author Organization [facility] Address [address] [place] [address] Phone Care Team Providers Care Embryology Professor Name Role Phone Montana Gayle DO Primary Care Provider [phone] Allergies Active Allergy Reactions Criticality Noted Date [...] severe pain. Active APAP-CODEINE & DIET MANAGE [place] PO Take 300 mg by mouth 3 [...] of Treatment Not on file Insurance MEDICARE [facility] Care Teams Embryology Professor Relationship Specialty Start Date End Date Montana Gayle DO [address] [place] [address] PCP - General Internal Medicine 09/17/18
--- OUTSIDE RECORDS SUMMARY | 2025-05-02 14:29 | XMS_ITS | Encounter Summary ---
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 Gender Identity Not on file Sexual Orientation [...] COVID: Suspected 06/14/2021 06/14/2021 06/14/2021 7:24 PM CARD CHECKER COVID: Suspected 01/16/2022 01/16/2022 01/16/2022 7:20 PM CDT COVID: Suspected 08/22/2022 08/22/2022 08/22/2022 9:42 AM CARD CHECKER COVID: Suspected 08/04/2024 08/04/2024 08/04/2024 3:41 PM CARD CHECKER COVID: Suspected 08/05/2024 08/05/2024 08/05/2024 1:23 PM CARD CHECKER Rhino/Enterovirus 11/08/2024 11/08/2024 11/15/2024 3:05 AM CDT documented as of this encounter Care Teams Transition Of Care Specialist Relationship Specialty Start Date End Date Heydi Hood MD [address] [address] PCP - General Family Medicine 03/03/21 06/13/21 Heydi Hood MD [address] [place] [address] PCP - General 06/14/21 06/16/21 Butch De Souza Jr., MD [address] [place] [address] PCP - General Internal Medicine 06/17/21 Swathi Golden RN Registered Nurse 04/15/19 01/18/23 Sheri Mac MD [address] [address] [place] [address] Endocrinology 06/17/21 12/09/24 Yessica Worthy MD [address] [facility] [address] [place] [address] Referring Physician Rheumatology 06/17/21 [place] [address] [place] [address] Consulting Physician Gastroenterology 06/17/21 Cortney García RN [address] [place] [address] [address] [place] [address] Color Developer 11/09/23 05/30/24 [place] [address] [facility] [address] [place] [address] Consulting Physician Cardiovascular Disease 07/09/24 Grey Hand, LEBRON [address] [place] [address] [address] [place] [address] Color Developer 08/12/24 [place] [address] [facility] [facility] [address] [place] [address] Consulting Physician Pulmonary Disease 12/10/24 documented as of this encounter
--- OUTSIDE RECORDS SUMMARY | 2025-05-02 14:29 | XMS_ITS | Encounter Summary ---
Author Organization [facility] Address [address] [place] [address] Phone Care Team Providers Care Board Of Education Secretary Name Role Phone Nolvia Olivares MD, Butch Cross Primary Care Provide r Yessica Worthy MD Unavailable [phone] Tonny Yoon MD Unavailable Ajay Downs MD Unavailable [phone] Grey Hand RN Unavailable Kodi Griggs MD Unavailable Encounter Details Date Type Department Care Team (Late st Contact Info) Description 04/17/2025 Results Follow-Up [facility] Medicine Cardiology [address] [facility] Advanced Medicine 8th [place] [address] [place] [address] Hyacinth Burgess, MACHINE CLOTHING WORKER [address] [facility] [address] [place] [address] ECG 12 lead Social History Tobacco Use Types Packs/Day Years Used Date Smoking Tobacco: Never Passive Smoke Exposure: Never Smokeless Tobacco: Never Alcohol Use Standard Drinks/Week Comments Never 0 (1 standard drink = 0.6 oz pur e alcohol) [facility] Utilities Answer Date Recorded In [...] often do you attend chur ch or presybeterian services? Never 11/11/2024 Do you belong to any clubs o r organizations such as jew groups, unions, fraternal or athletic groups, or [...] slept in a jail (including now)? No 11/18/2023 PHQ-9 Answer Date [...] any time in the past 12 m [facility], were you homeless or living in a jail (including now)? 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 Gender Identity Not on file Sexual Orientation [...] on filedocumented in this encounter Care Teams Board Of Education Secretary Relationship Specialty Start Date End Date Butch De Souza Jr., MD [facility] [address] [address] PCP - General Internal Medicine 06/17/21 Yessica Worthy MD [address] [facility] [address] [place] [address] Referring Physician Rheumatology 06/17/21 [place] [address] [place] [address] Consulting Physician Gastroenterology 06/17/21 [place] [address] [facility] [address] [place] [address] Consulting Physician Cardiovascular Disease 07/09/24 Grey Hand, LEBRON [address] [place] [address] [address] [place] [address] Lead Net Software Developer 08/12/24 [place] [address] [address] [place] [address] Consulting Physician Pulmonary Disease 12/10/24 documented as of this encounter
--- NOTE | 2025-05-02 15:54 | ECG_ITS ---
Test Date: 2025-05-02 15:44:44 Measurements Intervals O'Brien Rate: 55 P: 76 VA: 186 QRS: 5 QRSD: 96 T: 29 QT: 519 QTc: 497 Interpretive Statements SINUS BRADYCARDIA PROLONGED QT INTERVAL ABNORMAL ECG Compared to ECG 05/02/2025 12:33:56 HEART RATE HAS DECREASED Ventricular premature complex(es) no longer present Electronically Signed On 05-02-2025 16:18:36 CDT by Chano Villagomez D.O.
[2025-05-02 16:17] LABS: Troponin I < 0.012 ng/mL (0.000-0.034)
[2025-05-02] MEDS: NITROGLYCERIN SL 0.4 MG TABLET SUBLINGUAL (16:27)
[2025-05-02] MEDS: MORPHINE SULFATE (*CRX) 4 MG/ML INJ IV PUSH ×2 (17:42→19:04)
[2025-05-02] MEDS: LIDOCAINE 5% PATCH 1 PATCH TRANSDERM (19:04)
--- NOTE | 2025-05-02 20:51 | ADMGEN ---
This patient, London Menendez, was admitted to 3 [facility] Surg Room 329-01. Patient/family oriented to hospital policies and general routines including ID bracelet, bed and alarms, visiting hours, pain management, procedures, bathroom and other care routines, personal items, smoking policy, room service/diet, and visiting hours. Information on how to activate the Rapid Response Team has been discussed. Patient/Family are encouraged to report perceived risks to care and to ask questions if they do not understand what they are told or what they should do.
[2025-05-02 22:23] LABS: Troponin I < 0.012 ng/mL (0.000-0.034)
--- NOTE | 2025-05-02 23:29 | PM.IMHP ---
H&P: HPI History of Present Illness Date/Time: 05/02/25 23:29 Chief Complaint: Chest pain Narrative: This is a 64-year-old male patient who has had a history of frequent Pvcs with an ablation and hypertension. The patient sees a aircraft electrician somewhere in [place]. The patient has seen our cardiology group here in the past. However today the patient came in with chest pain and headache. The patient stated that he has been monitoring his blood pressure at home and it has been elevated over the last 3 days. The patient does suffer from PTSD and anxiety. The patient stated that he called his aircraft electrician this morning at [facility] and they advised him to go to the nearest ER. The patient was complaining of left-sided chest pain that is not reproducible. He denies any shortness of breath fever chills. Chest x-ray was read as no acute cardiopulmonary disease. His CT was read as no acute intracranial abnormality. Chest/abdomen/pelvis CTA was read as the following. 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 Remainder of the aorta is normal in caliber with no dissection. No other acute cardiopulmonary disease or acute intra-abdominal/pelvic process. 2. Diffuse hepatic steatosis. 3. Small fat-containing right inguinal hernia. The patient stated that he is aware of this aneurysm and is having it monitored yearly. All 3 Troponins are negative. EKG was read as sinus bradycardia prolonged QT interval of 497. Ventricular premature complexes are no longer present. His blood pressure did get up to 174/97 at 1 point in the emergency room. He was given morphine in the emergency room for the headache. He was also given an aspirin in the emergency room in cardiology has been consulted. The patient is being admitted to inpatient status on the date of service of 05/02/2025. Review of Systems Constitutional: Constitutional: Reports as per HPI and Reports no additional constitutional complaints Eyes: Eyes: Reports as per HPI and Reports no additional eye complaints ENT: Reports system reviewed and no additional complaints, except as documented and Reports Normal hearing present Cardiovascular: Cardiovascular: Reports no additional cardiovascular complaints Respiratory: Respiratory: Reports as per HPI and Reports no additional respiratory complaints Gastrointestinal: Gastrointestinal: Reports as per HPI and Reports no additional gastrointestinal complaints Musculoskeletal: Musculoskeletal: Reports no additional musculoskeletal complaints Integumentary/Breasts: Skin/Breast: Reports system reviewed and no additional complaints, except as docu Neurologic: Reports system reviewed and no additional complaints, except as documented and Reports Normal hearing present Psychiatric: Psychiatric: Reports no additional psychiatric complaints and Reports as per HPI Hematologic/Lymphatic: Hematologic/Lymphatic: Reports no additional hematologic/lymphatic complaints Allergic/Immunologic: Allergic/Immunologic: Reports no additional allergic/immunologic complaints [facility], [facility] Past Medical History Medical History Implantable loop recorder present Kidney stones Mitral valve prolapse Glaucoma Hepatic steatosis Posttraumatic stress disorder Transient ischemic attack Obstructive sleep apnea on CPAP Atrial fibrillation Status post ablation. On apixaban for stroke prophylaxis. COVID-19 (07/2020) Rheumatoid arthritis Skin cancer Anxiety Depression Arthritis Fibromyalgia Hypertension Hyperlipidemia Peripheral neuropathy Migraines Surgical History Surgical History Status post surgical removal of malignant neoplasm of skin History of arthroplasty of right shoulder History of arthroscopic knee surgery Status post ablation of atrial fibrillation History of cholecystectomy History of lumbar surgery History of loop recorder Family History Family History Mother Cancer Social History Social History Social History: . Lives with his in [place]. They have 2 children. 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 No alcohol, tobacco, or illicit substance use. Surrogate decision maker: Rubi Menendez, spouse. Code status: Full code. Smoking status: Never smoker Alcohol intake: never Substance use: never Substance use type: does not use Lack of Transportation: No Lack of Food: Never True Current Housing: I Have Housing Concerned About Future Housing: No Difficulty Paying Gas/Electric Bills: No Difficulty Paying for Meds: No Currently Unemployed: No Education: Trade/Vocational Certificate Difficulty w/ Childcare or Family Care: No Living arrangements: with family Occupation/Education: retired Spiritual care concerns: No Meds Home Medications and Allergies Home Medications ?Medication ?Instructions ?Recorded ?Confirmed ?Type atorvastatin 40 mg tablet (Lipitor) 40 mg PO DAILY 01/04/20 05/02/25 History fenofibrate 160 mg tablet 160 mg PO DAILY 01/04/20 05/02/25 History apixaban 5 mg tablet (Eliquis) 5 mg PO Q12HR #60 tabs 07/12/20 05/02/25 Rx cyclobenzaprine 10 mg tablet 10 mg PO BID PRN muscle spasm 04/05/21 05/02/25 History hydrochlorothiazide 25 mg tablet 25 mg PO DAILY 04/05/21 05/02/25 History atogepant 60 mg tablet (Qulipta) 60 mg PO DAILY PRN headache 05/02/25 05/02/25 History clonidine HCl 0.1 mg tablet 0.1 mg PO DAILY PRN hypertensive 05/02/25 05/02/25 History emergency diltiazem HCl 360 mg 360 mg PO Q24H 05/02/25 05/02/25 History capsule,extended release 24 hr duloxetine 60 mg capsule,delayed 60 mg PO DAILY 05/02/25 05/02/25 History release isosorbide mononitrate 60 mg 60 mg PO DAILY 05/02/25 05/02/25 History tablet,extended release 24 hr metoprolol succinate 50 mg 50 mg PO Q12H 05/02/25 05/02/25 History tablet,extended release 24 hr polyethylene glycol 3350 17 17 g PO DAILY 05/02/25 05/02/25 History gram/dose oral powder (ClearLax) polyethylene glycol 3350 17 17 g PO DAILY 05/02/25 05/02/25 History gram/dose oral powder (ClearLax) potassium chloride 10 mEq 20 meq PO DAILY 05/02/25 05/02/25 History tablet,extended release quetiapine 400 mg tablet 200 mg PO HS 05/02/25 05/02/25 History sennosides 8.6 mg-docusate sodium 1 tab-cap PO DAILY PRN constipation 05/02/25 05/02/25 History 50 mg tablet (2-in-1 Laxative) flecainide 100 mg tablet 100 mg PO Q12HR #60 tabs 05/04/25 Rx losartan 100 mg tablet 100 mg PO DAILY #30 tabs 05/04/25 Rx spironolactone 50 mg tablet 50 mg PO QAM #30 tabs 05/04/25 Rx (Aldactone) Allergies Allergy/AdvReac Type Severity Reaction Status Date / Time aripiprazole Allergy Unknown Rash Verified 05/02/25 20:59 hydroxychloroquine Allergy Unknown Rash Verified 05/02/25 20:59 methotrexate Allergy Unknown Rash Verified 05/02/25 20:59 sumatriptan Allergy Unknown Rash Verified 05/02/25 20:59 zolpidem Allergy Unknown Rash Verified 05/02/25 20:59 Vital Signs Vital Signs - 24 hr 05/02/25 12:43 05/02/25 14:07 05/02/25 14:07 Temperature 97.8 F Pulse Rate 65 57 L 56 L Respiratory Rate 16 17 Blood Pressure 127/74 134/77 Pulse Oximetry 96 96 Oxygen Delivery Room Air 05/02/25 14:07 05/02/25 14:08 05/02/25 14:31 Temperature Pulse Rate 56 L 57 L Respiratory Rate 16 17 Blood Pressure 134/77 134/84 Pulse Oximetry 95 96 96 Oxygen Delivery Room Air 05/02/25 15:01 05/02/25 15:31 05/02/25 15:59 Temperature Pulse Rate 58 L 56 L 57 L Respiratory Rate 17 16 14 Blood Pressure 137/86 139/91 H 151/84 H Pulse Oximetry 95 97 99 Oxygen Delivery 05/02/25 16:01 05/02/25 16:31 05/02/25 16:46 Temperature Pulse Rate 63 63 55 L Respiratory Rate 27 H 19 18 Blood Pressure 134/92 H 134/83 143/81 H Pulse Oximetry 97 96 98 Oxygen Delivery 05/02/25 18:02 05/02/25 18:16 05/02/25 18:31 Temperature Pulse Rate 62 58 L 60 Respiratory Rate 20 19 17 Blood Pressure 148/83 H 148/90 H 147/88 H Pulse Oximetry 97 97 96 Oxygen Delivery 05/02/25 19:11 05/02/25 19:16 05/02/25 19:47 Temperature Pulse Rate 62 57 L Respiratory Rate 17 16 Blood Pressure 160/95 H 165/95 H 174/97 H Pulse Oximetry 97 98 98 Oxygen Delivery 05/02/25 20:00 Temperature 97.6 F Pulse Rate 62 Respiratory Rate 19 Blood Pressure 161/106 H Pulse Oximetry 98 Oxygen Delivery Exam Const: General: cooperative, healthy appearing, comfortable, no acute distress, well developed, awake, Physically active, average body habitus and well nourished Nutritional Appearance: average body habitus and well nourished Orientation/consciousness: oriented to person, oriented to place, oriented to time and patient oriented x3 Limitations: no limitations HENMT: Head: normal to inspection, No palpable skull fracture present, normocephalic, atraumatic and abrasion Ears: hearing grossly normal bilaterally and external ears normal Eyes: General: appearance normal, both eyes and all related structures Alignment and Position: alignment normal Periorbital: periorbital findings normal Neck: Neck: normal visual inspection, full ROM, no lymphadenopathy and trachea midline Chest: Chest palpation & inspection: normal inspection of the chest Resp: Effort & Inspection: normal respiratory effort Auscultation: clear to auscultation bilaterally Cardio: Palpation: normal PMI Rate: regular rate Rhythm: regular rhythm Heart sounds: S1 normal heart sound present and S2 normal heart sound present Peripheral pulses: Peripheral pulses 2+ throughout GI: Inspection: normal to inspection Percussion: Yes normal to percussion Auscultation: normal bowel sounds Rectal Exam: deferred : General: Yes no CVA tenderness Back/Spine/Pelvis: Back: no CVA tenderness Skin: General skin exam: normal color Lesions: no lesions Rashes: no rashes Trauma: no lacerations or abrasions Wounds: no wounds Hair: normal Nails: normal Neuro: General: oriented to person, oriented to place, oriented to time and patient oriented x3 Cranial nerves: Yes Normal hearing present Cognition (Neuro): normal cognition Speech: normal speech Gait exam (Neuro): Normal gait present Motor exam (neuro): 5/5 motor strength present throughout Sensory Exam: normal sensation Extrem: General: normal to inspection Right upper extremity: normal to inspection and shoulder/upper arm Left upper extremity: normal to inspection Psych: Appearance: grossly normal Mental Status: mental status grossly normal Speech and movement: Normal speech and movement present Affect: normal affect Attitude: cooperative Thought process: Normal thought process present Thought content: Yes Normal thought content present Insight: Good insight present (Psych) Judgement: Good judgement present (Psych) H&P: Results Labs Labs: Short CBC 05/02/25 Range/Units 12:58 WBC 6.6 (4.5-10.0) K/mm3 Hgb 15.5 (14.0-18.0) g/dL Hct 45.6 (42.0-52.0) % Plt Count 245 (150-375) k/mm3 BMP 05/02/25 12:58 Sodium 138 Potassium 3.6 Chloride 103 Carbon Dioxide 27 BUN 27 H D Creatinine 1.14 Glucose 110 Calcium 9.2 Cardiac Enzymes 05/02/25 05/02/25 05/02/25 Range/Units 12:58 15:50 21:49 Troponin I < 0.012 < 0.012 < 0.012 (0.000-0.034) ng/mL Liver Function 05/02/25 Range/Units 12:58 Total Bilirubin 1.0 (0.2-1.3) mg/dL AST 58 (17-59) U/L ALT 70 H (6-50) U/L Alkaline Phosphatase 113 (38-126) U/L Albumin 4.7 (3.5-5.1) g/dL ECG Interpretation: Test Date: 2025-05-02 15:44:44 Measurements Intervals [place] Rate: 55 P: 76 IA: 186 QRS: 5 QRSD: 96 T: 29 QT: 519 QTc: 497 Interpretive Statements SINUS BRADYCARDIA PROLONGED QT INTERVAL ABNORMAL ECG Compared to ECG 05/02/2025 12:33:56 HEART RATE HAS DECREASED Ventricular premature complex(es) no longer present Electronically Signed On 05-02-2025 16:18:36 CDT by Chano Villagomez D.O. Imaging Chest x-ray: Radiologist's impression: Impressions Chest X-Ray 05/02/25 13:20 Impression: No acute cardiopulmonary abnormality. Head CT 05/02/25 16:08 Impression: 1.No acute intracranial abnormality. Chest/Abdomen/Pelvis CTA 05/02/25 18:01 IMPRESSION: 1. 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 Remainder of the aorta is normal in caliber with no dissection. No other acute cardiopulmonary disease or acute intra-abdominal/pelvic process. 2. Diffuse hepatic steatosis. 3. Small fat-containing right inguinal hernia. Assessment and Plan Assessment and plan (1) Chest pain: Qualifiers: Chest pain type: unspecified Qualified Code(s): R07.9 - Chest pain, unspecified Code(s): R07.9 - Chest pain, unspecified Status: Acute Assessment and Plan: -all 3 troponins were negative. -the patient stated it is just a dull constant achy pain. -an echo has been ordered -EKG was read as following Test Date: 2025-05-02 15:44:44 Measurements Intervals [place] Rate: 55 P: 76 IA: 186 QRS: 5 QRSD: 96 T: 29 QT: 519 QTc: 497 Interpretive Statements SINUS BRADYCARDIA PROLONGED QT INTERVAL ABNORMAL ECG Compared to ECG 05/02/2025 12:33:56 HEART RATE HAS DECREASED Ventricular premature complex(es) no longer present Electronically Signed On 05-02-2025 16:18:36 CDT by Chano Villagomez Do -cardiology has been consulted. -patient was seen by this group in the past and it was felt that his chest pain was due to anxiety. -Chest/Abdomen/Pelvis CTA 05/02/25 18:01 IMPRESSION: 1. 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 Remainder of the aorta is normal in caliber with no dissection. No other acute cardiopulmonary disease or acute intra-abdominal/pelvic process. 2. Diffuse hepatic steatosis. 3. Small fat-containing right inguinal hernia. -the patient stated that his aneurysm is monitored annually and we did discuss the results -continue with isosorbide -continue with metoprolol -continue with his statin -he was given an aspirin in the emergency room. -continue with Eliquis for history of AFib with an ablation? -will need records from his aircraft electrician. The patient stated that he go some is very but he is not sure the name of the aircraft electrician in he stated that it was [facility] in [place] . (2) Hypertension: Qualifiers: Hypertension type: unspecified Qualified Code(s): I10 - Essential (primary) hypertension Code(s): I10 - Essential (primary) hypertension Status: Acute Assessment and Plan: -p.r.n. hydralazine -the patient takes p.r.n. clonidine at home and he stated that it had been elevated for the last 3 days. -continue with isosorbide -continue with metoprolol -continue with Cardizem -continue with losartan (3) Depression: Code(s): F32.9 - Major depressive disorder, single episode, unspecified Status: Chronic Assessment and Plan: -continue with Seroquel and Cymbalta (4) A-fib: Code(s): I48.91 - Unspecified atrial fibrillation Status: Acute Assessment and Plan: -the patient stated that he had an ablation for frequent PVCs. However according to the ER notes , it was noted that the patient had an episode of AFib and had an ablation. However the patient is on Eliquis, therefore we will continue with that -continue with Tambocor and metoprolol. (5) Hyperlipidemia: Code(s): E78.5 - Hyperlipidemia, unspecified Status: Chronic Assessment and Plan: -continue with his homw dose of atorvastatin -continue with fenofibrate (6) Sleep apnea: Code(s): G47.30 - Sleep apnea, unspecified Status: Chronic Assessment and Plan: -AUTO titrate home CPAP BiPAP Quality VTE Prophylaxis VTE prophylaxis: pharmacologic ordered
[2025-05-03] VITALS (13 sets, daily range): BP systolic 141–168; BP diastolic 76–93; PULSE 63–76; RESP 14–18; TEMP 35.9–36.8; O2SAT 95–97
--- NOTE | 2025-05-03 | ECHO_ITS ---
Patient Info Name: London Menendez Age: 64 years : 1960 Gender: Male Ht: 75 in Wt: 358 lbs BSA: 3.00 m2 HR: 67 bpm BP: 150 / 86 mmHg Technical Quality: Good Exam Date: 05/03/2025 8:35 AM Patient Status: I Admit Date: 05/02/2025 Exam Type: CA echo doppler color flow Complete two-dimensional, color flow and Doppler transthoracic echocardiogram is performed. Staff Referring Physician: Doug Westbrook Public Accountant: Chely Horton Attending Provider: Pillo Tucker Summary 1. Complete two-dimensional, color flow and Doppler transthoracic echocardiogram is performed. 2. Left ventricular chamber dimension is normal. 3. Left ventricular systolic function is normal, estimated at 60-65. 4. There is mildly increased left ventricular wall thickness. 5. Right ventricular chamber dimension is normal. 6. Right ventricular systolic function is normal. 7. There is no aortic valve stenosis. 8. There is no aortic valve regurgitation. 9. The mitral valve has normal leaflets. 10. The tricuspid valve leaflets are normal. Left Ventricle Left ventricular chamber dimension is normal. Left ventricular systolic function is normal, estimated at 60-65. There is mildly increased left ventricular wall thickness. Left ventricular septal wall motion is normal. The left ventricular diastolic function is normal. Right Ventricle Right ventricular chamber dimension is normal. Right ventricular systolic function is normal. Left Atria Left atrial chamber dimension is normal. Right Atria Right atrial chamber dimension is normal. Aortic Valve The aortic valve is trileaflet. There is no aortic valve sclerosis. There is no aortic valve stenosis. There is no aortic valve regurgitation. Pulmonic Valve There is no pulmonic valve stenosis. There is no pulmonic regurgitation. Mitral Valve The mitral valve has normal leaflets. There is no mitral valve stenosis. There is no mitral valve regurgitation. Tricuspid Valve The tricuspid valve leaflets are normal. There is no significant tricuspid valve stenosis. There is no tricuspid valve regurgitation. Pericardium/Pleural The pericardium appears normal. There is no pericardial effusion. Inferior Vena Cava Normal inferior vena cava with >50% collapse upon inspiration consistent with normal right atrial pressure, 5 mmHg. Aorta The aortic root size at the sinus of Valsalva is normal. The prox ascending aorta size is normal. Left Ventricular Outflow Tract Name Value Normal LVOT 2D LVOT Diameter 2.0 cm LVOT Doppler LVOT Peak Velocity 104 cm/s LVOT Peak Gradient 4 mmHg LVOT Mean Gradient 2 mmHg LVOT VTI 23 cm LVOT Stroke Volume 75 ml LVOT CO 5.0 l/min LVOT CI 1.7 l/min/m2 Pulmonic Valve Name Value Normal RVOT Doppler RVOT Peak Velocity 69 cm/s RVOT Peak Gradient 2 mmHg PV Doppler PV Peak Velocity 103 cm/s PV Peak Gradient 4 mmHg Mitral Valve Name Value Normal MV Diastolic Function MV E Peak Velocity 73 cm/s MV A Peak Velocity 35 cm/s MV E/A 2.1 MV Decel Time (PW) 235 ms MV Annular TDI MV E/e' (Septal) 8.8 MV E/e' (Lateral) 8.9 MV E/e' (Average) 8.8 Tricuspid Valve Name Value Normal Estimated PAP/RSVP RA Pressure 5 mmHg <=5 Aortic Valve Name Value Normal AV Doppler AV Peak Velocity 133 cm/s AV Peak Gradient 7 mmHg AV Area (Cont Eq Frank) 2.5 cm2 AV DI (Frank) 0.78 AV Regurgitation 2D LVOT Area 3.2 cm2 Ventricles Name Value Normal LV Dimensions 2D/MM IVS Diastolic Thickness (2D) 1.4 cm 0.6-1.0 LVID Diastole (2D) 4.3 cm 4.2-5.8 LVIW Diastolic Thickness (2D) 1.4 cm 0.6-1.0 LVID Systole (2D) 3.1 cm 2.5-4.0 LVOT Diameter 2.0 cm LV Mass (2D Cubed) 228.34 g 88.00-224.00 LV Mass Index (2D Cubed) 76 g/m2 49-115 Relative Wall Thickness (2D) 0.66 <=0.42 LV Fractional Shortening/Ejection Fraction 2D/MM LV Fractional Shortening (2D) 28 % 25-43 LV EF (2D Teichholz) 55 % LV Diastolic Volume (4C MOD) 156 ml LV EF (4C MOD) 54 % LV Diastolic Volume (2C MOD) 151 ml LV EF (2C MOD) 66 % LV Diastolic Volume (BP MOD) 153 ml 62-150 LV Diastolic Volume Index (BP MOD) 51 ml/m2 34-74 LV Systolic Volume (BP MOD) 61 ml 21-61 LV Systolic Volume Index (BP MOD) 20 ml/m2 11-31 LV EF (BP MOD) 60 % 52-72 LV Diastolic Length (4C) 9.0 cm LV Systolic Length (4C) 7.6 cm LV Stroke Volume (4C MOD) 85 ml Atria Name Value Normal LA Dimensions LA Volume (4C A-L) 76 ml LA Volume (BP A-L) 81 ml RA Dimensions RA Systolic Major [place] Length (4C) 5.8 cm 2.1-2.7 RA Area (4C) 21.2 cm2 <=18.0 Report Signatures
[2025-05-03] MEDS: APIXABAN 5 MG TABLET PO ×3 (00:17→21:36)
--- NOTE | 2025-05-03 01:08 | PHAR ---
VERIFIED Fenofibrate 160mg tablet TAKE 1 TABLET DAILY WITH BREAKFAST, & Atogepant [Qulipta] 60 mg tablet TAKE 1 TABLET BY MOUTH DAILY PRN FOR HEADACHE. Sent back to ed-surg for inpatient use.
[2025-05-03] MEDS: ATOGEPANT 60 MG 60 EACH PO (01:19)
--- NOTE | 2025-05-03 08:05 | P.PNIM_ITS ---
Progress Note: A&P Assessment and Plan (1) Chest pain: Qualifiers: Chest pain type: unspecified Qualified Code(s): R07.9 - Chest pain, unspecified Code(s): R07.9 - Chest pain, unspecified Status: Acute Assessment and Plan: -all 3 troponins were negative. -the patient stated it is just a dull constant achy pain. -an echo has been ordered, completed, results pending -EKG was read as following Test Date: 2025-05-02 15:44:44 Measurements Intervals Bell Rate: 55 P: 76 WA: 186 QRS: 5 QRSD: 96 T: 29 QT: 519 QTc: 497 Interpretive Statements SINUS BRADYCARDIA PROLONGED QT INTERVAL ABNORMAL ECG Compared to ECG 05/02/2025 12:33:56 HEART RATE HAS DECREASED Ventricular premature complex(es) no longer present Electronically Signed On 05-02-2025 16:18:36 CDT by Chano Villagomez Do -cardiology has been consulted. -patient was seen by this group in the past and it was felt that his chest pain was due to anxiety. -Chest/Abdomen/Pelvis CTA 05/02/25 18:01 IMPRESSION: 1. 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 Remainder of the aorta is normal in caliber with no dissection. No other acute cardiopulmonary disease or acute intra-abdominal/pelvic process. 2. Diffuse hepatic steatosis. 3. Small fat-containing right inguinal hernia. -the patient stated that his aneurysm is monitored annually and we did discuss the results -continue with isosorbide -continue with metoprolol -continue with his statin -he was given an aspirin in the emergency room. -continue with Eliquis for history of AFib with an ablation? 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 The patient stated that he go some is very but he is not sure the name of the vegetable ii farmworker in he stated that it was [facility] in [place] . -cardiology consulted -patient denies chest pain during today's exam (2) Hypertension: Qualifiers: Hypertension type: unspecified Qualified Code(s): I10 - Essential (primary) hypertension Code(s): I10 - Essential (primary) hypertension Status: Acute Assessment and Plan: -p.r.n. hydralazine -the patient takes p.r.n. clonidine at home and he stated that it had been elevated for the last 3 days. -continue with isosorbide -continue with metoprolol -continue with Cardizem -continue with losartan -BP elevated this AM, if no improvement after morning medications, will make adjustments (3) Depression: Code(s): F32.9 - Major depressive disorder, single episode, unspecified Status: Chronic Assessment and Plan: -continue with Seroquel and Cymbalta -mood appears stable (4) A-fib: Code(s): I48.91 - Unspecified atrial fibrillation Status: Acute Assessment and Plan: -the patient stated that he had an ablation for frequent PVCs. However and 1 of the ER notes he was noted that the patient had an episode of AFib and had an ablation. However the patient is on Eliquis will continue with that -continue with Tambocor and metoprolol. -telemetry monitoring -cardiology is consulted (5) Hyperlipidemia: Code(s): E78.5 - Hyperlipidemia, unspecified Status: Chronic Assessment and Plan: -continue with his dose of atorvastatin -continue with fenofibrate (6) Sleep apnea: Code(s): G47.30 - Sleep apnea, unspecified Status: Chronic Assessment and Plan: -caudal titrate home CPAP BiPAP Subjective Date/time seen: 05/03/25 08:05 Interval history: Patient seen for a follow up visit. Patient lying in bed, in no acute distress. Patient denies chest pain. Patient had ECHO completed, results pending. Cardiology consult pending. Patient's blood pressure elevated this AM, received AM medications, monitor if improves and if not adjust BP medications. Patient continues on telemetry. Review of Systems Review of Systems: All systems reviewed & are unremarkable except as noted in HPI and below Objective Data Vital Signs Vital Signs: Vital Signs - 24 hr 05/02/25 12:43 05/02/25 14:07 05/02/25 14:07 Temperature 97.8 F Pulse Rate 65 57 L 56 L Respiratory Rate 16 17 Blood Pressure 127/74 134/77 Pulse Oximetry 96 96 Oxygen Delivery Room Air 05/02/25 14:07 05/02/25 14:08 05/02/25 14:31 Temperature Pulse Rate 56 L 57 L Respiratory Rate 16 17 Blood Pressure 134/77 134/84 Pulse Oximetry 95 96 96 Oxygen Delivery Room Air 05/02/25 15:01 05/02/25 15:31 05/02/25 15:59 Temperature Pulse Rate 58 L 56 L 57 L Respiratory Rate 17 16 14 Blood Pressure 137/86 139/91 H 151/84 H Pulse Oximetry 95 97 99 Oxygen Delivery 05/02/25 16:01 05/02/25 16:31 05/02/25 16:46 Temperature Pulse Rate 63 63 55 L Respiratory Rate 27 H 19 18 Blood Pressure 134/92 H 134/83 143/81 H Pulse Oximetry 97 96 98 Oxygen Delivery 05/02/25 18:02 05/02/25 18:16 05/02/25 18:31 Temperature Pulse Rate 62 58 L 60 Respiratory Rate 20 19 17 Blood Pressure 148/83 H 148/90 H 147/88 H Pulse Oximetry 97 97 96 Oxygen Delivery 05/02/25 19:11 05/02/25 19:16 05/02/25 19:47 Temperature Pulse Rate 62 57 L Respiratory Rate 17 16 Blood Pressure 160/95 H 165/95 H 174/97 H Pulse Oximetry 97 98 98 Oxygen Delivery 05/02/25 20:00 05/03/25 00:00 05/03/25 00:00 Temperature 97.6 F 97.1 F L Pulse Rate 62 63 65 Respiratory Rate 19 17 Blood Pressure 161/106 H 168/87 H Pulse Oximetry 98 97 Oxygen Delivery 05/03/25 04:00 05/03/25 04:05 Temperature 97.9 F Pulse Rate 71 65 Respiratory Rate 16 Blood Pressure 150/86 H Pulse Oximetry 97 Oxygen Delivery Intake/Output Intake/Output: Intake & Output 04/30/25 05/01/25 05/02/25 05/03/25 23:59 23:59 23:59 23:59 Intake Total 1400 Balance 1400 Meds/Results Medications: Active Medications Generic Name Dose Route Start Last Admin Trade Name Freq PRN Reason Stop Dose Admin Apixaban 5 mg 05/02/25 23:30 05/03/25 00:17 Apixaban 5 Mg Tablet PO 5 mg Q12HR VENANCIO Administration Atorvastatin Calcium 40 mg 05/03/25 09:00 Atorvastatin 40 Mg Tablet PO DAILY VENANCIO Cyclobenzaprine HCl 10 mg 05/02/25 23:29 Cyclobenzaprine Hcl 10 Mg Tablet PO BID PRN Muscle Spasm Diltiazem HCl 360 mg 05/03/25 09:00 Diltiazem Hcl Cd 180 Mg Cap.24hr PO QAM [facility] Duloxetine HCl 60 mg 05/03/25 09:00 Duloxetine Hcl 60 Mg Capsule.Dr PO DAILY [facility] Famotidine 20 mg 05/03/25 09:00 Famotidine 20 Mg/2 Ml Vial IV PUSH Q12HR [facility] Flecainide Acetate 50 mg 05/03/25 09:00 Flecainide Acetate 50 Mg Tablet PO Q12HR [facility] Hydralazine HCl 10 mg 05/02/25 23:31 Hydralazine Hcl 20 Mg/Ml Vial IV PUSH Q8H PRN Blood Pressure - High Hydrochlorothiazide 25 mg 05/03/25 09:00 Hydrochlorothiazide 25 Mg Tablet PO DAILY [facility] Isosorbide Mononitrate 60 mg 05/03/25 09:00 Isosorbide Mononitrate 60 Mg Tab.Er.24h PO DAILY [facility] Losartan Potassium 25 mg 05/03/25 09:00 Losartan Potassium 25 Mg Tablet PO DAILY [facility] Metoprolol Succinate 50 mg 05/03/25 09:00 Metoprolol Succinate Ext Rel 50 Mg Tabcr PO Q12HR VENANCIO Home Med (Atogepant 60 mg 05/02/25 23:29 05/03/25 01:19 [Qulipta] 60 Mg PO 06/01/25 23:28 60 mg Tablet) DAILY PRN Administration headache Home Med ( 1 each 05/03/25 08:00 Fenofibrate 160mg BY MOUTH 06/02/25 07:59 Tablet) DAILY@0800 [facility] Perflutren Lipid Microsphere 0 ml 05/02/25 23:32 Perflutren Lipid Microspheres 1.5 Ml Vial Diluted To 10 Ml Total Volume IV PUSH 05/05/25 23:32 ONCE PRN adequate visualization Protocol Polyethylene Glycol 17 gm 05/03/25 09:00 Polyethylene Glycol 3350 17 Gm Powd.Pack PO DAILY [facility] Potassium Chloride 20 meq 05/03/25 08:00 Potassium Chloride 20 Meq Er Tablet PO DAILY@0800 [facility] Quetiapine Fumarate 200 mg 05/02/25 23:35 05/03/25 00:17 Quetiapine Fumarate 100 Mg Tablet PO 200 mg HS VENANCIO Administration Senna/Docusate Sodium 1 tab 05/02/25 23:29 Senna/Docusate Sodium Tablet PO DAILY PRN Constipation Radiology Results: ITS Impressions Chest X-Ray 05/02/25 13:20 Impression: No acute cardiopulmonary abnormality. Head CT 05/02/25 16:08 Impression: 1.No acute intracranial abnormality. Chest/Abdomen/Pelvis CTA 05/02/25 18:01 IMPRESSION: 1. 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 Remainder of the aorta is normal in caliber with no dissection. No other acute cardiopulmonary disease or acute intra-abdominal/pelvic process. 2. Diffuse hepatic steatosis. 3. Small fat-containing right inguinal hernia. Labs Labs: Laboratory Results - last 24 hr 05/02/25 05/02/25 05/02/25 12:58 15:50 21:49 WBC 6.6 RBC 5.36 Hgb 15.5 Hct 45.6 MCV 85.1 MCH 28.9 MCHC 34.0 RDW 13.3 Plt Count 245 MPV 10.7 H Immature Gran % (Auto) 0.2 Neut % (Auto) 63.5 Lymph % (Auto) 21.9 Floyd % (Auto) 11.8 H Eos % (Auto) 2.3 Baso % (Auto) 0.3 Lymph # (Auto) 1.45 Floyd # (Auto) 0.8 H Eos # (Auto) 0.2 Baso # (Auto) 0.0 Abs Immat Gran (auto) 0.01 Absolute Neuts (auto) 4.2 Absolute Nucleated RBC 0.000 Nucleated RBC % 0.0 PT 15.2 H INR 1.2 APTT 31.9 Sodium 138 Potassium 3.6 Chloride 103 Carbon Dioxide 27 Anion Gap 8 BUN 27 H D Creatinine 1.14 Estim Creat Clear Calc 90 Estimated GFR > 60 Glucose 110 Calcium 9.2 Total Bilirubin 1.0 AST 58 ALT 70 H Alkaline Phosphatase 113 Troponin I < 0.012 < 0.012 < 0.012 Total Protein 7.8 Albumin 4.7 Lipase 162 Quality VTE Prophylaxis VTE prophylaxis: pharmacologic ordered
[2025-05-03] MEDS: dilTIAZem HCL CD 180 MG CAP.24HR 360 MG PO (08:49)
[2025-05-03] MEDS: LOSARTAN POTASSIUM 25 MG TABLET PO (08:49)
[2025-05-03] MEDS: ATORVASTATIN 40 MG TABLET PO (08:49)
[2025-05-03] MEDS: METOPROLOL SUCCINATE EXT REL 50 MG TABCR PO ×2 (08:50→21:36)
[2025-05-03] MEDS: DULoxetine HCL 60 MG CAPSULE.DR PO (08:50)
[2025-05-03] MEDS: FLECAINIDE ACETATE 50 MG TABLET PO ×2 (08:51→15:04)
[2025-05-03] MEDS: FAMOTIDINE 20 MG/2 ML VIAL IV PUSH ×2 (08:51→21:37)
[2025-05-03] MEDS: POTASSIUM CHLORIDE 20 MEQ ER TABLET PO (08:51)
[2025-05-03] MEDS: ISOSORBIDE MONONITRATE 60 MG TAB.ER.24H PO (08:52)
[2025-05-03] MEDS: FENOFIBRATE 160 MG 1 EACH BY MOUTH (09:08)
--- NOTE | 2025-05-03 11:22 | PM.CNCAR ---
Assessment and Plan Assessment and plan (1) Hypertensive emergency: Code(s): I16.1 - Hypertensive emergency Status: Acute Assessment and Plan: Hypertensive emergency Morbid obesity History PVC ablation unsuccessful Paroxysmal atrial fibrillation is status post ablation 2019 Obstructive sleep Plan Flecainide and increase dose to 100 mg b.i.d. Eliquis 5 mg b.i.d. Metoprolol XL 50 mg daily Increase losartan to 100 mg daily Diltiazem CD 360 mg daily Add chlorthalidone and spironolactone 50 mg daily History of Present Illness History of Present Illness Consult date/time: 05/03/25 11:22 Reason For Visit: Intractable chest pain Narrative: 64-year-old male patient presents to the hospital was uncontrolled hypertension. Patient mentioned that his blood pressure has been rising over the last 3 days. It peaked at 230/135. At this time the patient was complaining of headache change in vision chest discomfort ectopic beats with shortness of breath fatigue. He had prior similar episodes in the past. He had prior history of fluctuating blood pressure in 1 week ago his blood pressure systolic was 190. In between episodes of elevated blood pressure his blood pressure usually runs in the 130s. Patient mentioned has been compliant with his medications. He had prior evaluation for coronary artery disease has been negative for recent PVC ablation. Review of Systems Review of Systems: All systems reviewed & are unremarkable except as noted in HPI and below PMFSH Past Medical History Medical History Implantable loop recorder present Kidney stones Mitral valve prolapse Glaucoma Hepatic steatosis Posttraumatic stress disorder Transient ischemic attack Obstructive sleep apnea on CPAP Atrial fibrillation Status post ablation. On apixaban for stroke prophylaxis. COVID-19 (07/2020) Rheumatoid arthritis Skin cancer Anxiety Depression Arthritis Fibromyalgia Hypertension Hyperlipidemia Peripheral neuropathy Migraines Surgical History Surgical History Status post surgical removal of malignant neoplasm of skin History of arthroplasty of right shoulder History of arthroscopic knee surgery Status post ablation of atrial fibrillation History of cholecystectomy History of lumbar surgery History of loop recorder Family History Family History Mother Cancer Social History Social History Social History: . Lives with his in [place]. They have 2 children. 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 No alcohol, tobacco, or illicit substance use. Surrogate decision maker: Rubi Menendez, spouse. Code status: Full code. Smoking status: Never smoker Alcohol intake: never Substance use: never Substance use type: does not use Lack of Transportation: No Lack of Food: Never True Current Housing: I Have Housing Concerned About Future Housing: No Difficulty Paying Gas/Electric Bills: No Difficulty Paying for Meds: No Currently Unemployed: No Education: Trade/Vocational Certificate Difficulty w/ Childcare or Family Care: No Living arrangements: with family Occupation/Education: retired Spiritual care concerns: No Meds Home Medications and Allergies Home Medications ?Medication ?Instructions ?Recorded ?Confirmed ?Type atorvastatin 40 mg tablet (Lipitor) 40 mg PO DAILY 01/04/20 05/02/25 History fenofibrate 160 mg tablet 160 mg PO DAILY 01/04/20 05/02/25 History apixaban 5 mg tablet (Eliquis) 5 mg PO Q12HR #60 tabs 07/12/20 05/02/25 Rx cyclobenzaprine 10 mg tablet 10 mg PO BID PRN muscle spasm 04/05/21 05/02/25 History hydrochlorothiazide 25 mg tablet 25 mg PO DAILY 04/05/21 05/02/25 History atogepant 60 mg tablet (Qulipta) 60 mg PO DAILY PRN headache 05/02/25 05/02/25 History clonidine HCl 0.1 mg tablet 0.1 mg PO DAILY PRN hypertensive 05/02/25 05/02/25 History emergency diltiazem HCl 360 mg 360 mg PO Q24H 05/02/25 05/02/25 History capsule,extended release 24 hr duloxetine 60 mg capsule,delayed 60 mg PO DAILY 05/02/25 05/02/25 History release flecainide 50 mg tablet 50 mg PO Q12H 05/02/25 05/02/25 History isosorbide mononitrate 60 mg 60 mg PO DAILY 05/02/25 05/02/25 History tablet,extended release 24 hr losartan 25 mg tablet 25 mg PO DAILY 05/02/25 05/02/25 History metoprolol succinate 50 mg 50 mg PO Q12H 05/02/25 05/02/25 History tablet,extended release 24 hr polyethylene glycol 3350 17 17 g PO DAILY 05/02/25 05/02/25 History gram/dose oral powder (ClearLax) polyethylene glycol 3350 17 17 g PO DAILY 05/02/25 05/02/25 History gram/dose oral powder (ClearLax) potassium chloride 10 mEq 20 meq PO DAILY 05/02/25 05/02/25 History tablet,extended release quetiapine 400 mg tablet 200 mg PO HS 05/02/25 05/02/25 History sennosides 8.6 mg-docusate sodium 1 tab-cap PO DAILY PRN constipation 05/02/25 05/02/25 History 50 mg tablet (2-in-1 Laxative) Allergies Allergy/AdvReac Type Severity Reaction Status Date / Time aripiprazole Allergy Unknown Rash Verified 05/02/25 20:59 hydroxychloroquine Allergy Unknown Rash Verified 05/02/25 20:59 methotrexate Allergy Unknown Rash Verified 05/02/25 20:59 sumatriptan Allergy Unknown Rash Verified 05/02/25 20:59 zolpidem Allergy Unknown Rash Verified 05/02/25 20:59 Vital Signs Vital Signs - 24 hr 05/02/25 12:43 05/02/25 14:07 05/02/25 14:07 Temperature 36.6 C Pulse Rate 65 57 L 56 L Respiratory Rate 16 17 Blood Pressure 127/74 134/77 Pulse Oximetry 96 96 Oxygen Delivery Room Air 05/02/25 14:07 05/02/25 14:08 05/02/25 14:31 Temperature Pulse Rate 56 L 57 L Respiratory Rate 16 17 Blood Pressure 134/77 134/84 Pulse Oximetry 95 96 96 Oxygen Delivery Room Air 05/02/25 15:01 05/02/25 15:31 05/02/25 15:59 Temperature Pulse Rate 58 L 56 L 57 L Respiratory Rate 17 16 14 Blood Pressure 137/86 139/91 H 151/84 H Pulse Oximetry 95 97 99 Oxygen Delivery 05/02/25 16:01 05/02/25 16:31 05/02/25 16:46 Temperature Pulse Rate 63 63 55 L Respiratory Rate 27 H 19 18 Blood Pressure 134/92 H 134/83 143/81 H Pulse Oximetry 97 96 98 Oxygen Delivery 05/02/25 18:02 05/02/25 18:16 05/02/25 18:31 Temperature Pulse Rate 62 58 L 60 Respiratory Rate 20 19 17 Blood Pressure 148/83 H 148/90 H 147/88 H Pulse Oximetry 97 97 96 Oxygen Delivery 05/02/25 19:11 05/02/25 19:16 05/02/25 19:47 Temperature Pulse Rate 62 57 L Respiratory Rate 17 16 Blood Pressure 160/95 H 165/95 H 174/97 H Pulse Oximetry 97 98 98 Oxygen Delivery 05/02/25 20:00 05/03/25 00:00 05/03/25 00:00 Temperature 36.4 C 36.2 C L Pulse Rate 62 63 65 Respiratory Rate 19 17 Blood Pressure 161/106 H 168/87 H Pulse Oximetry 98 97 Oxygen Delivery 05/03/25 04:00 05/03/25 04:05 05/03/25 08:00 Temperature 36.6 C 36.5 C Pulse Rate 71 65 72 Respiratory Rate 16 14 Blood Pressure 150/86 H 164/93 H Pulse Oximetry 97 96 Oxygen Delivery 05/03/25 08:50 05/03/25 08:51 05/03/25 10:59 Temperature Pulse Rate 72 72 65 Respiratory Rate Blood Pressure 165/89 H Pulse Oximetry Oxygen Delivery Exam Const: General: comfortable and no acute distress Other: Able to lie flat HENMT: Face/Nose/Sinus: Normal nares present and no epistaxis Mouth: Yes moist mucous membranes Eyes: Sclera: sclerae normal Pupils: Equal, round and reactive pupils present Neck: Neck: supple and no JVD Carotids: no bruits Resp: Auscultation: clear to auscultation bilaterally and lung sounds not diminished Other: No chest wall tenderness Cardio: Rate: regular rate Rhythm: regular rhythm Heart sounds: no gallops, no murmurs and no rubs GI: GI Palp: Yes Soft to palpation and No Tenderness to palpation present (GI) Auscultation: normal bowel sounds Skin: General skin exam: normal color, rashes and/or lesions noted and no erythema Other: Warm Neuro: Cranial nerves: Yes Equal, round and reactive pupils present Speech: normal speech Other: No obvious focal deficit or facial asymmetry Extrem: General: no edema Other: Normal capillary refills Intact distal pulses. Results Labs and Meds 05/02/25 12:58 05/02/25 12:58 Lab results: Cardiac Enzymes 05/02/25 05/02/25 05/02/25 Range/Units 12:58 15:50 21:49 AST 58 (17-59) U/L Troponin I < 0.012 < 0.012 < 0.012 (0.000-0.034) ng/mL Coagulation 05/02/25 Range/Units 12:58 PT 15.2 H (11.1-14.7) Seconds APTT 31.9 (22.3-36.8) Seconds CBC 05/02/25 Range/Units 12:58 WBC 6.6 (4.5-10.0) K/mm3 RBC 5.36 (4.6-6.20) M/mm3 Hgb 15.5 (14.0-18.0) g/dL Hct 45.6 (42.0-52.0) % Plt Count 245 (150-375) k/mm3 Lymph # (Auto) 1.45 (0.9-3.2) K/mm3 Casey # (Auto) 0.8 H (0.1-0.6) K/mm3 Eos # (Auto) 0.2 (0-0.3) K/mm3 Baso # (Auto) 0.0 (0.0-0.1) K/mm3 Comprehensive Metabolic Panel 05/02/25 Range/Units 12:58 Sodium 138 (137-145) mmol/L Potassium 3.6 (3.4-5.0) mmol/L Chloride 103 (98-107) mmol/L Carbon Dioxide 27 (22-30) mmol/L BUN 27 H D (9-20) mg/dL Creatinine 1.14 (0.7-1.3) mg/dL Glucose 110 (65-110) mg/dL Calcium 9.2 (8.4-10.2) mg/dL AST 58 (17-59) U/L ALT 70 H (6-50) U/L Alkaline Phosphatase 113 (38-126) U/L Total Protein 7.8 (6.3-8.2) g/dL Albumin 4.7 (3.5-5.1) g/dL Intake and Output 05/02/25 05/03/25 05/03/25 23:59 07:59 15:59 Intake Total 1400 354 Balance 1400 354 Intake: Oral 1400 354 Other: # Unmeasured Voids 3
[2025-05-03] MEDS: LOSARTAN POTASSIUM 100 MG TABLET PO (13:19)
[2025-05-03] MEDS: SPIRONOLACTONE 50 MG TABLET PO (15:04)
[2025-05-03] MEDS: FLECAINIDE ACETATE 100 MG TABLET PO (21:36)
[2025-05-04] VITALS: BP 140/80; PULSE 62; PULSE 65; RESP 18; TEMP 36.2; O2SAT 98
--- NOTE | 2025-05-04 00:19 | PC.NURSE ---
Pt states when he turned to his side, he had chest discomfort, but immediately turned on his back and chest discomfort stopped. Pt encouraged to inform me if have discomfort again, verbalize understanding.
--- NOTE | 2025-05-04 01:23 | PC.NURSE ---
0118 Pt request medication to help him sleep, place call to Dr. Lopez, new order received
[2025-05-04] MEDS: MELATONIN 5 MG TABLET PO (01:34)
--- NOTE | 2025-05-04 02:50 | PC.NURSE ---
Daylight Savings Time For Daylight Savings Time Ending in the Fall - Clocks are moved back. For Daylight Savings Time Beginning in the Spring - Clocks are moved ahead. For [facility], the time of change occurs at 0200 hrs. Time is taken from the observer electrical prospecting. This entry on the patient's chart recognizes the change in time reflected during documentation. Example: 2 entries for vital signs may be charted for 0200 hrs.
[2025-05-04 04:00] VITALS: BP 129/89; PULSE 51; PULSE 55; RESP 20; TEMP 36.3; O2SAT 95
[2025-05-04 06:11] LABS: Hematocrit 43.3 % (42.0-52.0); Hemoglobin 14.6 g/dL (14.0-18.0); Immature Granulocyte Percent A 0.3 % (0-0.5); Lymphocytes Absolute Auto 1.69 K/mm3 (0.9-3.2); Mean Corpuscular HGB Conc 33.7 g/dl (32-36); Mean Corpuscular Hemoglobin 29.2 pg (26-34); Mean Corpuscular Volume 86.6 fl (80-100); Nucleated Red Blood Cells Absolute Auto 0.000 K/mm3 (0.0-0.012); Nucleated Red Blood Cells Perc 0.0 % (0.0-0.2); Platelet Count Result 210 k/mm3 (150-375); Red Blood Count 5.00 M/mm3 (4.6-6.20); White Blood Count 6.5 K/mm3 (4.5-10.0)
[2025-05-04 06:25] LABS: Alanine Aminotransferase 78 U/L (6-50); Albumin Level 4.2 g/dL (3.5-5.1); Alkaline Phosphatase 91 U/L (38-126); Anion Gap 8 mmol/L (4-12); Aspartate Amino Transferase 62 U/L (17-59); Bilirubin,Total 0.7 mg/dL (0.2-1.3); Blood Urea Nitrogen 22 mg/dL (9-20); Calcium 8.5 mg/dL (8.4-10.2); Carbon Dioxide 26 mmol/L (22-30); Chloride 103 mmol/L (98-107); Estimated CRCL calculation 103 ml/min; Estimated Glomerular Filt Rate > 60; Glucose 98 mg/dL (65-110); Potassium 3.4 mmol/L (3.4-5.0); Sodium 137 mmol/L (137-145); Total Protein 6.9 g/dL (6.3-8.2)
--- NOTE | 2025-05-04 07:11 | P.PNIM_ITS ---
Progress Note: A&P Assessment and Plan (1) Chest pain: Qualifiers: Chest pain type: unspecified Qualified Code(s): R07.9 - Chest pain, unspecified Code(s): R07.9 - Chest pain, unspecified Status: Acute Assessment and Plan: -all 3 troponins were negative. -the patient stated it is just a dull constant achy pain. -an echo has been ordered, completed, results pending -EKG was read as following Test Date: 2025-05-02 15:44:44 Measurements Intervals [place] Rate: 55 P: 76 MN: 186 QRS: 5 QRSD: 96 T: 29 QT: 519 QTc: 497 Interpretive Statements SINUS BRADYCARDIA PROLONGED QT INTERVAL ABNORMAL ECG Compared to ECG 05/02/2025 12:33:56 HEART RATE HAS DECREASED Ventricular premature complex(es) no longer present Electronically Signed On 05-02-2025 16:18:36 CDT by Chano Villagomez Do -cardiology has been consulted. -patient was seen by this group in the past and it was felt that his chest pain was due to anxiety. -Chest/Abdomen/Pelvis CTA 05/02/25 18:01 IMPRESSION: 1. 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 Remainder of the aorta is normal in caliber with no dissection. No other acute cardiopulmonary disease or acute intra-abdominal/pelvic process. 2. Diffuse hepatic steatosis. 3. Small fat-containing right inguinal hernia. -the patient stated that his aneurysm is monitored annually and we did discuss the results -continue with isosorbide -continue with metoprolol -continue with his statin -he was given an aspirin in the emergency room. -continue with Eliquis for history of AFib with an ablation? 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 The patient stated that he go some is very but he is not sure the name of the irrigation system operator in he stated that it was [facility] in [place] . -cardiology consulted -patient denies chest pain during today's exam (2) Hypertension: Qualifiers: Hypertension type: unspecified Qualified Code(s): I10 - Essential (primary) hypertension Code(s): I10 - Essential (primary) hypertension Status: Acute Assessment and Plan: -p.r.n. hydralazine -the patient takes p.r.n. clonidine at home and he stated that it had been elevated for the last 3 days. -continue with isosorbide -continue with metoprolol -continue with Cardizem -continue with losartan -BP elevated this AM, if no improvement after morning medications, will make adjustments (3) Depression: Code(s): F32.9 - Major depressive disorder, single episode, unspecified Status: Chronic Assessment and Plan: -continue with Seroquel and Cymbalta -mood appears stable (4) A-fib: Code(s): I48.91 - Unspecified atrial fibrillation Status: Acute Assessment and Plan: -the patient stated that he had an ablation for frequent PVCs. However and 1 of the ER notes he was noted that the patient had an episode of AFib and had an ablation. However the patient is on Eliquis will continue with that -continue with Tambocor and metoprolol. -telemetry monitoring -cardiology is consulted (5) Hyperlipidemia: Code(s): E78.5 - Hyperlipidemia, unspecified Status: Chronic Assessment and Plan: -continue with his dose of atorvastatin -continue with fenofibrate (6) Sleep apnea: Code(s): G47.30 - Sleep apnea, unspecified Status: Chronic Assessment and Plan: -caudal titrate home CPAP BiPAP Subjective Date/time seen: 05/04/25 07:11 Review of Systems Review of Systems: All systems reviewed & are unremarkable except as noted in HPI and below Objective Data Vital Signs Vital Signs: Vital Signs - 24 hr 05/03/25 08:50 05/03/25 08:51 05/03/25 10:59 Temperature Pulse Rate 72 72 65 Respiratory Rate Blood Pressure 165/89 H Pulse Oximetry Oxygen Delivery 05/03/25 12:00 05/03/25 12:00 05/03/25 14:36 Temperature 98.2 F 97.9 F Pulse Rate 67 70 71 Respiratory Rate 18 16 Blood Pressure 141/89 H 165/92 H Pulse Oximetry 97 96 Oxygen Delivery 05/03/25 15:04 05/03/25 16:00 05/03/25 16:00 Temperature 96.7 F L Pulse Rate 75 70 76 Respiratory Rate 18 Blood Pressure 145/76 H Pulse Oximetry 95 Oxygen Delivery 05/03/25 20:00 05/03/25 20:00 05/03/25 20:00 Temperature 97.2 F L Pulse Rate 64 63 Respiratory Rate 18 Blood Pressure 154/82 H Pulse Oximetry 97 Oxygen Delivery Room Air 05/03/25 21:36 05/03/25 21:36 05/04/25 00:00 Temperature 97.1 F L Pulse Rate 64 64 62 Respiratory Rate 18 Blood Pressure 140/80 Pulse Oximetry 98 Oxygen Delivery 05/04/25 00:00 05/04/25 04:00 05/04/25 04:00 Temperature 97.4 F L Pulse Rate 65 55 L 51 L Respiratory Rate 20 Blood Pressure 129/89 Pulse Oximetry 95 Oxygen Delivery Intake/Output Intake/Output: Intake & Output 05/01/25 05/02/25 05/03/25 05/04/25 23:59 23:59 23:59 22:59 Intake Total 1971 200 Balance 1971 200 Meds/Results Medications: Active Medications Generic Name Dose Route Start Last Admin Trade Name Freq PRN Reason Stop Dose Admin Apixaban 5 mg 05/02/25 23:30 05/03/25 21:36 Apixaban 5 Mg Tablet PO 5 mg Q12HR VENANCIO Administration Atorvastatin Calcium 40 mg 05/03/25 09:00 05/03/25 08:49 Atorvastatin 40 Mg Tablet PO 40 mg DAILY VENANCIO Administration Cyclobenzaprine HCl 10 mg 05/02/25 23:29 Cyclobenzaprine Hcl 10 Mg Tablet PO BID PRN Muscle Spasm Diltiazem HCl 360 mg 05/03/25 09:00 05/03/25 08:49 Diltiazem Hcl Cd 180 Mg Cap.24hr PO 360 mg QAM VENANCIO Administration Duloxetine HCl 60 mg 05/03/25 09:00 05/03/25 08:50 Duloxetine Hcl 60 Mg Capsule.Dr PO 60 mg DAILY VENANCIO Administration Famotidine 20 mg 05/03/25 09:00 05/03/25 21:37 Famotidine 20 Mg/2 Ml Vial IV PUSH 20 mg Q12HR VENANCIO Administration Flecainide Acetate 100 mg 05/03/25 21:00 05/03/25 21:36 Flecainide Acetate 100 Mg Tablet PO 100 mg Q12HR VENANCIO Administration Hydralazine HCl 10 mg 05/02/25 23:31 Hydralazine Hcl 20 Mg/Ml Vial IV PUSH Q8H PRN Blood Pressure - High Hydrochlorothiazide 25 mg 05/03/25 09:00 05/03/25 08:49 Hydrochlorothiazide 25 Mg Tablet PO 25 mg DAILY VENANCIO Administration Isosorbide Mononitrate 60 mg 05/03/25 09:00 05/03/25 08:52 Isosorbide Mononitrate 60 Mg Tab.Er.24h PO 60 mg DAILY VENANCIO Administration Losartan Potassium 100 mg 05/03/25 11:35 05/03/25 13:19 Losartan Potassium 100 Mg Tablet PO 100 mg DAILY VENANCIO Administration Melatonin 5 mg 05/04/25 01:20 PLANT GUIDE 05/04/25 01:34 CDT Melatonin 5 Mg Tablet PO 5 mg HS PRN Administration Insomnia Metoprolol Succinate 50 mg 05/03/25 09:00 05/03/25 21:36 Metoprolol Succinate Ext Rel 50 Mg Tabcr PO 50 mg Q12HR VENANCIO Administration Home Med (Atogepant 60 mg 05/02/25 23:29 05/03/25 01:19 [Qulipta] 60 Mg PO 06/01/25 23:28 60 mg Tablet) DAILY PRN Administration headache Home Med ( 1 each 05/03/25 08:00 05/03/25 09:08 Fenofibrate 160mg BY MOUTH 06/02/25 07:59 1 each Tablet) DAILY@0800 VENANCIO Administration Perflutren Lipid Microsphere 0 ml 05/02/25 23:32 Perflutren Lipid Microspheres 1.5 Ml Vial Diluted To 10 Ml Total Volume IV PUSH 05/05/25 23:32 ONCE PRN adequate visualization Protocol Polyethylene Glycol 17 gm 05/03/25 09:00 05/03/25 08:51 Polyethylene Glycol 3350 17 Gm Powd.Pack PO 17 gm DAILY VENANCIO Administration Quetiapine Fumarate 200 mg 05/02/25 23:35 05/03/25 21:35 Quetiapine Fumarate 100 Mg Tablet PO 200 mg HS VENANCIO Administration Senna/Docusate Sodium 1 tab 05/02/25 23:29 Senna/Docusate Sodium Tablet PO DAILY PRN Constipation Spironolactone 50 mg 05/03/25 14:45 05/03/25 15:04 Spironolactone 50 Mg Tablet PO 50 mg QAM VENANCIO Administration Radiology Results: ITS Impressions Chest X-Ray 05/02/25 13:20 Impression: No acute cardiopulmonary abnormality. Head CT 05/02/25 16:08 Impression: 1.No acute intracranial abnormality. Chest/Abdomen/Pelvis CTA 05/02/25 18:01 IMPRESSION: 1. 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 Remainder of the aorta is normal in caliber with no dissection. No other acute cardiopulmonary disease or acute intra-abdominal/pelvic process. 2. Diffuse hepatic steatosis. 3. Small fat-containing right inguinal hernia. Labs Labs: Laboratory Results - last 24 hr 05/04/25 05:44 WBC 6.5 RBC 5.00 Hgb 14.6 Hct 43.3 MCV 86.6 MCH 29.2 MCHC 33.7 RDW 13.5 Plt Count 210 MPV 10.4 Immature Gran % (Auto) 0.3 Neut % (Auto) 59.2 Lymph % (Auto) 25.9 [place] % (Auto) 12.3 H Eos % (Auto) 2.1 Baso % (Auto) 0.2 Lymph # (Auto) 1.69 [place] # (Auto) 0.8 H Eos # (Auto) 0.1 Baso # (Auto) 0.0 Abs Immat Gran (auto) 0.02 Absolute Neuts (auto) 3.9 Absolute Nucleated RBC 0.000 Nucleated RBC % 0.0 Sodium 137 Potassium 3.4 Chloride 103 Carbon Dioxide 26 Anion Gap 8 BUN 22 H Creatinine 1.02 Estim Creat Clear Calc 103 Estimated GFR > 60 Glucose 98 Calcium 8.5 Total Bilirubin 0.7 AST 62 H ALT 78 H Alkaline Phosphatase 91 Total Protein 6.9 Albumin 4.2 Quality VTE Prophylaxis VTE prophylaxis: pharmacologic ordered
[2025-05-04 08:00] VITALS: BP 132/79; PULSE 67; PULSE 77; RESP 18; TEMP 36.2; O2SAT 94
[2025-05-04 08:37] VITALS: PULSE 80
[2025-05-04] MEDS: SPIRONOLACTONE 50 MG TABLET PO (08:37)
[2025-05-04] MEDS: DULoxetine HCL 60 MG CAPSULE.DR PO (08:37)
[2025-05-04] MEDS: FAMOTIDINE 20 MG/2 ML VIAL IV PUSH (08:37)
[2025-05-04] MEDS: ISOSORBIDE MONONITRATE 60 MG TAB.ER.24H PO (08:37)
[2025-05-04] MEDS: ATORVASTATIN 40 MG TABLET PO (08:37)
[2025-05-04] MEDS: FLECAINIDE ACETATE 100 MG TABLET PO (08:37)
[2025-05-04] MEDS: METOPROLOL SUCCINATE EXT REL 50 MG TABCR PO (08:37)
[2025-05-04] MEDS: APIXABAN 5 MG TABLET PO (08:38)
[2025-05-04] MEDS: LOSARTAN POTASSIUM 100 MG TABLET PO (08:38)
[2025-05-04] MEDS: dilTIAZem HCL CD 180 MG CAP.24HR 360 MG PO (08:38)
[2025-05-04] MEDS: FENOFIBRATE 160 MG 1 EACH BY MOUTH (08:45)
[2025-05-04 12:00] VITALS: BP 135/71; PULSE 66; PULSE 67; RESP 18; TEMP 36.2; O2SAT 94
--- NOTE | 2025-05-04 12:16 | P.PNCA_ITS ---
Progress Note: A&P Assessment and Plan (1) Hypertensive emergency: Code(s): I16.1 - Hypertensive emergency Status: Acute Plan Hypertensive emergency control Morbid obesity History PVC ablation unsuccessful Paroxysmal atrial fibrillation is status post ablation 2019 Obstructive sleep Plan Flecainide 100 mg b.i.d. Eliquis 5 mg b.i.d. Metoprolol XL 50 mg daily Losartan to 100 mg daily Diltiazem CD 360 mg daily Hydrochlorothiazide and spironolactone Patient can be discharged from cardiac standpoint follow-up in the clinic Subjective Date/time seen: 05/04/25 12:16 Interval history: Patient seen for follow-up for uncontrolled hypertension No acute events overnight feels better no symptoms today Telemetry sinus bradycardia and sinus rhythm with occasional PVCs Review of Systems Review of Systems: All systems reviewed & are unremarkable except as noted in HPI and below Exam Const: General: comfortable and no acute distress Other: Able to lie flat HENMT: Face/Nose/Sinus: Normal nares present and no epistaxis Mouth: Yes moist mucous membranes Eyes: Sclera: sclerae normal Pupils: Equal, round and reactive pupils present Neck: Neck: supple and no JVD Carotids: no bruits Resp: Auscultation: clear to auscultation bilaterally and lung sounds not diminished Other: No chest wall tenderness Cardio: Rate: regular rate Rhythm: regular rhythm Heart sounds: no gallops, no murmurs and no rubs GI: GI Palp: Yes Soft to palpation and No Tenderness to palpation present (GI) Auscultation: normal bowel sounds Skin: General skin exam: normal color, rashes and/or lesions noted and no erythema Other: Warm Neuro: Cranial nerves: Yes Equal, round and reactive pupils present Speech: normal speech Other: No obvious focal deficit or facial asymmetry Extrem: General: no edema Other: Normal capillary refills Intact distal pulses. Objective Data Vital Signs Vital Signs: Vital Signs - 24 hr 05/03/25 14:36 05/03/25 15:04 05/03/25 16:00 Temperature 36.6 C 35.9 C L Pulse Rate 71 75 70 Respiratory Rate 16 18 Blood Pressure 165/92 H 145/76 H Pulse Oximetry 96 95 Oxygen Delivery 05/03/25 16:00 05/03/25 20:00 05/03/25 20:00 Temperature 36.2 C L Pulse Rate 76 64 Respiratory Rate 18 Blood Pressure 154/82 H Pulse Oximetry 97 Oxygen Delivery Room Air 05/03/25 20:00 05/03/25 21:36 05/03/25 21:36 Temperature Pulse Rate 63 64 64 Respiratory Rate Blood Pressure Pulse Oximetry Oxygen Delivery 05/04/25 00:00 05/04/25 00:00 05/04/25 04:00 Temperature 36.2 C L 36.3 C L Pulse Rate 62 65 55 L Respiratory Rate 18 20 Blood Pressure 140/80 129/89 Pulse Oximetry 98 95 Oxygen Delivery 05/04/25 04:00 05/04/25 08:00 05/04/25 08:37 Temperature Pulse Rate 51 L 77 80 Respiratory Rate Blood Pressure Pulse Oximetry Oxygen Delivery 05/04/25 08:37 Temperature Pulse Rate 80 Respiratory Rate Blood Pressure Pulse Oximetry Oxygen Delivery Intake/Output Intake/Output: Intake & Output 05/01/25 05/02/25 05/03/25 05/04/25 23:59 23:59 23:59 22:59 Intake Total 1971 440 Balance 1972 440 Meds/Results Medications: Active Medications Generic Name Dose Route Start Last Admin Trade Name Freq PRN Reason Stop Dose Admin Apixaban 5 mg 05/02/25 23:30 05/04/25 08:38 Apixaban 5 Mg Tablet PO 5 mg Q12HR VENANCIO Administration Atorvastatin Calcium 40 mg 05/03/25 09:00 05/04/25 08:37 Atorvastatin 40 Mg Tablet PO 40 mg DAILY VENANCIO Administration Cyclobenzaprine HCl 10 mg 05/02/25 23:29 Cyclobenzaprine Hcl 10 Mg Tablet PO BID PRN Muscle Spasm Diltiazem HCl 360 mg 05/03/25 09:00 05/04/25 08:38 Diltiazem Hcl Cd 180 Mg Cap.24hr PO 360 mg QAM VENANCIO Administration Duloxetine HCl 60 mg 05/03/25 09:00 05/04/25 08:37 Duloxetine Hcl 60 Mg Capsule.Dr PO 60 mg DAILY VENANCIO Administration Famotidine 20 mg 05/03/25 09:00 05/04/25 08:37 Famotidine 20 Mg/2 Ml Vial IV PUSH 20 mg Q12HR VENANCIO Administration Flecainide Acetate 100 mg 05/03/25 21:00 05/04/25 08:37 Flecainide Acetate 100 Mg Tablet PO 100 mg Q12HR VENANCIO Administration Hydralazine HCl 10 mg 05/02/25 23:31 Hydralazine Hcl 20 Mg/Ml Vial IV PUSH Q8H PRN Blood Pressure - High Hydrochlorothiazide 25 mg 05/03/25 09:00 05/04/25 08:38 Hydrochlorothiazide 25 Mg Tablet PO 25 mg DAILY VENANCIO Administration Isosorbide Mononitrate 60 mg 05/03/25 09:00 05/04/25 08:37 Isosorbide Mononitrate 60 Mg Tab.Er.24h PO 60 mg DAILY VENANCIO Administration Losartan Potassium 100 mg 05/03/25 11:35 05/04/25 08:38 Losartan Potassium 100 Mg Tablet PO 100 mg DAILY VENANCIO Administration Melatonin 5 mg 05/04/25 01:20 CENTER ADMINISTRATOR 05/04/25 01:34 CDT Melatonin 5 Mg Tablet PO 5 mg HS PRN Administration Insomnia Metoprolol Succinate 50 mg 05/03/25 09:00 05/04/25 08:37 Metoprolol Succinate Ext Rel 50 Mg Tabcr PO 50 mg Q12HR VENANCIO Administration Home Med (Atogepant 60 mg 05/02/25 23:29 05/03/25 01:19 [Qulipta] 60 Mg PO 06/01/25 23:28 60 mg Tablet) DAILY PRN Administration headache Home Med ( 1 each 05/03/25 08:00 05/04/25 08:45 Fenofibrate 160mg BY MOUTH 06/02/25 07:59 1 each Tablet) DAILY@0800 VENANCIO Administration Perflutren Lipid Microsphere 0 ml 05/02/25 23:32 Perflutren Lipid Microspheres 1.5 Ml Vial Diluted To 10 Ml Total Volume IV PUSH 05/05/25 23:32 ONCE PRN adequate visualization Protocol Polyethylene Glycol 17 gm 05/03/25 09:00 05/04/25 08:42 Polyethylene Glycol 3350 17 Gm Powd.Pack PO 17 gm DAILY VENANCIO Administration Quetiapine Fumarate 200 mg 05/02/25 23:35 05/03/25 21:35 Quetiapine Fumarate 100 Mg Tablet PO 200 mg HS VENANCIO Administration Senna/Docusate Sodium 1 tab 05/02/25 23:29 Senna/Docusate Sodium Tablet PO DAILY PRN Constipation Spironolactone 50 mg 05/03/25 14:45 05/04/25 08:37 Spironolactone 50 Mg Tablet PO 50 mg QAM VENANCIO Administration Radiology Results: ITS Impressions Chest X-Ray 05/02/25 13:20 Impression: No acute cardiopulmonary abnormality. Head CT 05/02/25 16:08 Impression: 1.No acute intracranial abnormality. Chest/Abdomen/Pelvis CTA 05/02/25 18:01 IMPRESSION: 1. 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 Remainder of the aorta is normal in caliber with no dissection. No other acute cardiopulmonary disease or acute intra-abdominal/pelvic process. 2. Diffuse hepatic steatosis. 3. Small fat-containing right inguinal hernia. Labs Labs: Laboratory Results - last 24 hr 05/04/25 05:44 WBC 6.5 RBC 5.00 Hgb 14.6 Hct 43.3 MCV 86.6 MCH 29.2 MCHC 33.7 RDW 13.5 Plt Count 210 MPV 10.4 Immature Gran % (Auto) 0.3 Neut % (Auto) 59.2 Lymph % (Auto) 25.9 [place] % (Auto) 12.3 H Eos % (Auto) 2.1 Baso % (Auto) 0.2 Lymph # (Auto) 1.69 [place] # (Auto) 0.8 H Eos # (Auto) 0.1 Baso # (Auto) 0.0 Abs Immat Gran (auto) 0.02 Absolute Neuts (auto) 3.9 Absolute Nucleated RBC 0.000 Nucleated RBC % 0.0 Sodium 137 Potassium 3.4 Chloride 103 Carbon Dioxide 26 Anion Gap 8 BUN 22 H Creatinine 1.02 Estim Creat Clear Calc 103 Estimated GFR > 60 Glucose 98 Calcium 8.5 Total Bilirubin 0.7 AST 62 H ALT 78 H Alkaline Phosphatase 91 Total Protein 6.9 Albumin 4.2
--- NOTE | 2025-05-05 15:17 | P.DS_ITS ---
DS: Admitting Diagnosis Discharge Date 05/04/25 Admitting Diagnosis chest pain HTN Depression A-fib HLD sleep apnea DS: Discharge Diagnosis Discharge Diagnosis (1) Chest pain: Qualifiers: Chest pain type: unspecified Qualified Code(s): R07.9 - Chest pain, unspecified Code(s): R07.9 - Chest pain, unspecified Status: Acute Assessment and Plan: -all 3 troponins were negative. -the patient stated it is just a dull constant achy pain. -an echo has been ordered -EKG was read as following Test Date: 2025-05-02 15:44:44 Measurements Intervals Morrill Rate: 55 P: 76 NH: 186 QRS: 5 QRSD: 96 T: 29 QT: 519 QTc: 497 Interpretive Statements SINUS BRADYCARDIA PROLONGED QT INTERVAL ABNORMAL ECG Compared to ECG 05/02/2025 12:33:56 HEART RATE HAS DECREASED Ventricular premature complex(es) no longer present Electronically Signed On 05-02-2025 16:18:36 CDT by Chano Villagomez Do -cardiology has been consulted. -patient was seen by this group in the past and it was felt that his chest pain was due to anxiety. -Chest/Abdomen/Pelvis CTA 05/02/25 18:01 IMPRESSION: 1. 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 Remainder of the aorta is normal in caliber with no dissection. No other acute cardiopulmonary disease or acute intra-abdominal/pelvic process. 2. Diffuse hepatic steatosis. 3. Small fat-containing right inguinal hernia. -the patient stated that his aneurysm is monitored annually and we did discuss the results -continue with isosorbide -continue with metoprolol -continue with his statin -he was given an aspirin in the emergency room. -continue with Eliquis for history of AFib with an ablation? -will need records from his mixer and scaler. The patient stated that he go some is very but he is not sure the name of the mixer and scaler in he stated that it was [facility] in [place] . (2) Hypertension: Qualifiers: Hypertension type: unspecified Qualified Code(s): I10 - Essential (primary) hypertension Code(s): I10 - Essential (primary) hypertension Status: Acute Assessment and Plan: -p.r.n. hydralazine -the patient takes p.r.n. clonidine at home and he stated that it had been elevated for the last 3 days. -continue with isosorbide -continue with metoprolol -continue with Cardizem -continue with losartan (3) Depression: Code(s): F32.9 - Major depressive disorder, single episode, unspecified Status: Chronic Assessment and Plan: -continue with Seroquel and Cymbalta (4) A-fib: Code(s): I48.91 - Unspecified atrial fibrillation Status: Acute Assessment and Plan: -the patient stated that he had an ablation for frequent PVCs. However according to the ER notes , it was noted that the patient had an episode of AFib and had an ablation. However the patient is on Eliquis, therefore we will continue with that -continue with Tambocor and metoprolol. (5) Hyperlipidemia: Code(s): E78.5 - Hyperlipidemia, unspecified Status: Chronic Assessment and Plan: -continue with his homw dose of atorvastatin -continue with fenofibrate (6) Sleep apnea: Code(s): G47.30 - Sleep apnea, unspecified Status: Chronic Assessment and Plan: -AUTO titrate home CPAP BiPAP DS: Summary Hospital Course Reason for hospitalization: chest pain Hospital Course: The patient is a 64-year-old male with a complex cardiac history, including atrial fibrillation status post ablation, frequent PVCs, mitral valve prolapse, hypertension, and a known mild fusiform ascending thoracic aortic aneurysm, as well as multiple other comorbidities (PTSD, anxiety, depression, obstructive sleep apnea, hepatic steatosis, hyperlipidemia, rheumatoid arthritis, and others). He presented with complaints of left-sided chest pain and headache, along with reports of elevated home blood pressure readings over the preceding three days. He denied shortness of breath, fever, or chills. On arrival, his blood pressure was significantly elevated (up to 174/97), and he was noted to have sinus bradycardia with a prolonged QT interval on EKG. Initial workup included serial troponins (all negative), chest x-ray (no acute cardiopulmonary disease), and head CT (no acute intracranial abnormality). CTA of the chest, abdomen, and pelvis confirmed stable mild fusiform aneurysm of the ascending thoracic aorta (4.6 x 4.3 cm) without dissection, as well as diffuse hepatic steatosis and a small right inguinal hernia. Cardiology was consulted, and the patient?s chest pain was determined to be non- cardiac in origin, likely related to anxiety, as in prior admissions. His home cardiac medications, including isosorbide, metoprolol, diltiazem, losartan, and apixaban, were continued. He was also maintained on his home antihypertensives and PRN clonidine for blood pressure control. His psychiatric medications (quetiapine and duloxetine) were continued for depression and anxiety. The patient?s aortic aneurysm was discussed with him, and he confirmed ongoing annual surveillance. He remained hemodynamically stable throughout his admission, with no evidence of acute coronary syndrome or arrhythmia recurrence. He was discharged in stable condition with instructions to continue his home medication regimen, follow up with his mixer and scaler for ongoing aneurysm monitoring, and maintain regular outpatient care for his chronic conditions. Time Spent with Patient Time attestation: Total time spent providing and/or coordinating discharge services: 40 Minutes Exam Const: General: comfortable and no acute distress HENMT: Face/Nose/Sinus: Normal nares present Mouth: Yes moist mucous membranes Eyes: General: appearance normal, both eyes and all related structures Sclera: sclerae normal Neck: Neck: supple Resp: Effort & Inspection: normal respiratory effort Auscultation: clear to auscultation bilaterally Cardio: Rate: regular rate Rhythm: regular rhythm GI: GI Palp: Yes Soft to palpation Auscultation: normal bowel sounds Skin: General skin exam: normal color and no rashes or lesions noted Neuro: General: gait normal Motor exam (neuro): 5/5 motor strength present throughout Sensory Exam: normal sensation Extrem: General: normal to inspection Psych: Mental Status: mental status grossly normal Affect: normal affect DS: Data Imaging Radiologist's impression: CT Scan Report Signed Patient: London Menendez : 1960 MR#: [id number] Age: 64 Acct:[id number] Loc: [facility] ADM Date: 05/02/[address]: Ordering Physician: Doug Westbrook DO Date of Service: 05/02/25 Procedure(s): CT brain wo con Accession Number(s): [id number] cc: Doug Westbrook DO~ EXAMINATION: CT brain wo con, 05/02/2025 15:50 CDT HISTORY: headache, severe htn COMPARISON: No comparisons available. Technique: Axial images obtained of the brain without contrast. One or more of the following dose reduction techniques were used: automated exposure control, adjustment of the mA and/or kV according to patient size, use of iterative reconstruction technique. Findings: No acute infarct or parenchymal hemorrhage. No abnormal mass or mass effect. No midline shift. No extra-axial fluid collections. No hydrocephalus. Mastoid air cells unremarkable. Sinuses and orbits unremarkable. No acute fracture. No significant facial or scalp soft tissue swelling evident. No radiopaque foreign body is seen. Impression: 1.No acute intracranial abnormality. Reviewed, dictated and finalized at location P. CT Scan Report Signed Patient: London Menendez : 1960 MR#: [id number] Age: 64 Acct:[id number] Loc: [facility] ADM Date: 05/02/[address]: Ordering Physician: Doug Westbrook DO Date of Service: 05/02/25 Procedure(s): CTA chest abdomen pelvis Accession Number(s): [id number] cc: Doug Westbrook DO~ EXAMINATION: CTA chest abdomen pelvis DATE: 05/02/2025 18:00 INDICATION: Chest pain. TECHNIQUE: Computed tomographic angiography (CTA) of the chest, abdomen, and pelvis was performed without and with 100 mL Omnipaque-350 intravenous contrast. Volume-rendered 3D-reconstructions of the aorta and large arteries were constructed by the technologist on a separate workstation. Automated exposure control and iterative reconstruction technique were employed. The dose-length product was 4101.02 mGy-cm. COMPARISON: CT studies dated 12/05/2023 and 11/23/2023 FINDINGS: Chest: Unchanged 5 mm nodule along the right minor fissure potentially an intrafissural lymph node. Mild atelectasis/scarring at the anterior lung bases. Calcified nodules in the left upper and right lower lobes along with calcified left hilar lymph nodes consistent with old granulomatous disease. No pneumonia, pulmonary edema, pleural effusion or pneumothorax. Heart size is normal. No pericardial effusion. Atherosclerotic coronary artery calcification. No pericardial effusion. Fusiform ascending thoracic aortic aneurysm measuring up to 4.6 x 4.3 cm. No dissection. No pathologically enlarged thoracic lymphadenopathy. Right shoulder arthroplasty. Lucent T9 hemangioma with typical coarse vertical trabecula pattern. Mild thoracic spondylosis with bridging osteophytes at multiple levels consistent with diffuse idiopathic skeletal hyperostosis (DISH). Old healed bilateral rib fractures. Abdomen and pelvis: Diffuse hepatic steatosis. Cholecystectomy clips at the gallbladder fossa. Splenic calcific lesions consistent with old granulomatous disease. Pancreas, bilateral adrenal glands and left kidney are normal. 2.1 cm right renal cyst. Mild scattered colonic diverticulosis without adjacent from trace stranding to suggest diverticulitis. No bowel obstruction. Normal appendix. Bladder is normal. Small fat-containing right inguinal hernia. Prostatomegaly measuring 4.7 x 3.7 cm. No free intraperitoneal gas or fluid. No pathologically enlarged abdominal or pelvic lymphadenopathy. Abdominal aorta is normal in caliber with no dissection. Moderate lumbar spondylosis with L5-S1 anterior and posterior spinal fusion. IMPRESSION: 1. 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 Remainder of the aorta is normal in caliber with no dissection. No other acute cardiopulmonary disease or acute intra-abdominal/pelvic process. 2. Diffuse hepatic steatosis. 3. Small fat-containing right inguinal hernia. Reviewed, dictated and finalized at location A. Discharge Plan Discharge Attending physician on discharge: Pillo Tucker Consulting providers: Madan Foster; Chano Villagomez; Zahraa Melendez; Alon Pérez; Kenn Guadarrama Discharging Clinician: Anais Sandoval Patient Disposition: Home Activity: as tolerated Diet: heart healthy Patient Instructions: Antibiotic Form, Apixaban (By mouth), Suicide Prevention (ED) Patient Language: German Stand Alone Forms: General Discharge Information Follow-up/Referrals: Madan Foster MD [Physician, Cardiology] Referral Note: call for an appt to follow up with cardiology after discharge. Call your current EP or cardiac surgeon to schedule a follow up appointment. Nolvia,Butch Cross Jr., MD [Primary Care Provider, Unknown] Referral Note: call for an appt to be seen within 1-2 weeks of discharge Discharge Medications: New flecainide 100 mg Tablet 100 mg PO Q12HR Qty: 60 0RF losartan 100 mg Tablet 100 mg PO DAILY Qty: 30 0RF spironolactone [Aldactone] 50 mg Tablet 50 mg PO QAM Qty: 30 0RF Continued atorvastatin [Lipitor] 40 mg tablet 40 mg PO DAILY fenofibrate 160 mg tablet 160 mg PO DAILY Eliquis 5 mg Tablet 5 mg PO Q12HR Qty: 60 1RF cyclobenzaprine 10 mg Tablet 10 mg PO BID PRN (Reason: muscle spasm) hydrochlorothiazide 25 mg Tablet 25 mg PO DAILY clonidine HCl 0.1 mg tablet 0.1 mg PO DAILY PRN (Reason: hypertensive emergency) Rx Instructions: high blood greater than 170/90 potassium chloride 10 mEq tablet extended release 20 meq PO DAILY metoprolol succinate 50 mg tablet extended release 24 hr 50 mg PO Q12H diltiazem HCl 360 mg capsule,extended release 24hr 360 mg PO Q24H isosorbide mononitrate 60 mg tablet extended release 24 hr 60 mg PO DAILY duloxetine 60 mg capsule,delayed release(DR/EC) 60 mg PO DAILY Qulipta 60 mg tablet 60 mg PO DAILY PRN (Reason: headache) quetiapine 400 mg tablet 200 mg PO HS polyethylene glycol 3350 [ClearLax] 17 gram/dose powder 17 g PO DAILY polyethylene glycol 3350 [ClearLax] 17 gram/dose powder 17 g PO DAILY sennosides-docusate sodium [2-in-1 Laxative] 8.6-50 mg tablet 1 tab-cap PO DAILY PRN (Reason: constipation) Discontinued losartan 25 mg tablet 25 mg PO DAILY flecainide 50 mg tablet 50 mg PO Q12H Date of admission: 05/02/25 18:25 Primary Care Provider: NolviaButch Jr. Admitting Provider: Pillo Tucker Attending physician on admission: Anais Sandoval Condition: Stable Quality VTE Prophylaxis VTE prophylaxis: pharmacologic ordered
== END 2025-05-04 15:30 | disposition home or self-care (01) | DRG 305 ==
LOC: ANHED 14:25 → ANH3MEDSUR 18:58
PROVIDERS: Emergency Medicine; Admitting Provider Internal Medicine; Emergency Provider Student in an Organized Health Care Education/Training Program; PCP Hospitalist; Visit Provider Nurse Practitioner Adult Health
DX: I16.1 Hypertensive emergency (principal); Z68.41 Body mass index [BMI] 40.0-44.9, adult; R07.9 Chest pain, unspecified; E66.01 Morbid (severe) obesity due to excess calories; H40.9 Unspecified glaucoma; G47.33 Obstructive sleep apnea (adult) (pediatric); M06.9 Rheumatoid arthritis, unspecified; K76.0 Fatty (change of) liver, not elsewhere classified; M79.7 Fibromyalgia; M19.90 Unspecified osteoarthritis, unspecified site; E78.5 Hyperlipidemia, unspecified; G62.9 Polyneuropathy, unspecified; I48.0 Paroxysmal atrial fibrillation; F32.A Depression, unspecified; F43.10 Post-traumatic stress disorder, unspecified; F41.9 Anxiety disorder, unspecified; Z96.611 Presence of right artificial shoulder joint; Z86.73 Personal history of transient ischemic attack (TIA), and cerebral infarction without residual deficits; Z86.16 Personal history of COVID-19; Z85.828 Personal history of other malignant neoplasm of skin; Z90.49 Acquired absence of other specified parts of digestive tract
CPT/HCPCS: 36415; 70450; 71046; 71275; 74174; 80053; 83690; 84484; 85025; 85610; 85730; 93005; 93306; 96374; 99285; A9270; J2270; Q9967

== ENCOUNTER 2025-06-19 11:57 | Emergency (ER) | payer MEDICARE, BC, SELFPAY ==
[2025-06-19 12:11] VITALS: BP 123/73; PULSE 74; RESP 16; TEMP 36.4; O2SAT 98
--- OUTSIDE RECORDS SUMMARY | 2025-06-19 13:04 | XMS_ITS | Encounter Summary ---
Author Organization [facility] Address [address] [place] [address] Care Team Providers Care Live In Caregiver Name Role Phone Nolvia Olivares MD, Butch Sanches Primary Care Provider Reason for Visit * Reason Onset Date Comments Chest pain, passed out 07/12/2022 Spoke W/ Tammie at Dr. Downs's office Encounter Details Date Type Department Care Team (Late st Contact Info) Description 07/12/2022 Telephone [facility] Admitting [address] [place] [address] [place] [phone] [phone] Chest pain, passed out (Spoke [...] Coronavirus/COVID-19? No / Unsure 07/11/2022 5:52 PM [facility]IDE [employer]OUR documented as of this encounter Plan of Treatment Not on file documented as of this encounter Visit Diagnoses Not on filedocumented in this encounter Care Teams Live In Caregiver Relationship Specialty Start Date End Date Nolvia Olivares, Butch Sanches MD [address] [place] [phone] PCP - General Internal Medicine 05/10/22 documented as of this encounter
--- OUTSIDE RECORDS SUMMARY | 2025-06-19 13:04 | XMS_ITS | Clinical Summary ---
Author Organization [facility] Address [address] [facility] [address] [place] [address] Phone Care Team Providers Care Distribution Agent Name Role Phone Nolvia Olivares MD, Butch [...] times daily as needed. 0 Active omega 0-zzv-zbn-fish oil 360-1,200 mg Capsule, Delayed Release(E.C.) Take [...] Comments Blood Pressure 102/59 07/13/2022 3:53 PM [employer] [employer]OTHER Pulse 65 07/13/2022 3:51 PM [employer] [employer] Temperature 36.6 C (97.8 F) 07/13/2022 3:51 PM [employer] [employer] Respiratory Rate 18 07/13/2022 3:51 PM [facility] [employer]OTHER Oxygen Saturation 98% 07/13/2022 3:51 PM [employer] Inhaled Oxygen Concentration - - Weight 149.7 kg (330 lb) 05/10/2022 3:44 PM [employer] [employer] Height 190.5 cm (6' 3) 05/10/2022 3:44 PM [employer] [employer] Body Mass Index 41.25 05/10/2022 3:44 PM [facility]OTHER Plan of Treatment Health Maintenance Due Date [...] Comments HEMOGLOBIN A1C Stat 05/21/2020 4:21 PM [employer] [employer]OTHER from Last 3 Months or Most Recently Relevant to Health Maintenance Results * HEMOGLOBIN A1C (05/21/2020 4:21 PM [facility] SMOOTHER) HEMOGLOBIN A1C 5.5 <=5.6 % 05/22/2020 3:04 AM [facility] [employer]OTHER [facility]. AVG GLUCOSE, A1C 111 mg/dL 05/22/2020 3:04 AM [employer] [employer]OTHER [facility] [employer] [facility] Blood Venipuncture / Unknown 05/21/2020 4:21 PM [facility] [employer]MOOTHER 05/21/2020 4:29 PM [employer] [employer]OTHER Narrative [facility] [employer] [facility] - 05/22/2020 3:04 AM [employer] [employer]OTHER HGB A1C INTERPRETATION NORMAL: <5.7% PRE-DIABETES: 5.7 - 6.4% DIABETES: 6.5% OR GREATER us Albert Allred MD CHEMISTRY ORDERABLES Final Res ult [facility] [employer] [facility] CLIA# [id number] [place] [address] from Last 3 Months or Most Recently Relevant to Health Maintenance Insurance MEDICARE PART A AND B [facility] BLUE ACCESS/TRUE BLUE PPO Advance Directives For more information, please contact: [phone] * Full Code (Latest Code Status on File) Date Activated Date Inactivated Comments 07/11/2022 5:49 PM 07/13/2022 7:24 PM * Full Code Date Activated Date Inactivated Comments 03/30/2022 12:44 PM 03/30/2022 8:02 PM * Full Code Date Activated Date Inactivated Comments 05/22/2020 6:25 AM 05/23/2020 7:43 PM Care Teams Distribution Agent Relationship Specialty Start Date End Date Butch De Souza Jr., MD [address] [place] [phone] PCP - General Internal Medicine 05/10/22
--- OUTSIDE RECORDS SUMMARY | 2025-06-19 13:04 | XMS_ITS | Patient Health Record ---
Author Organization [facility] Address [address] [place] [address] Care Team Providers Care Recruiter Coordinator Name Role Phone BOBBY STRATTON, [facility] Primary Care Provider Fadi Kaufman Unavailable [phone] ShakiraSally Unavailable [phone] Allergies Allergen (clinical drug ingredient) Drug/Non Drug [...] Duration) Notes Start Date End Date Status Eliquis 5 MG Tablet Oral; Duration: 90 Days Active Metoprolol Succinate ER 50 M G Tablet Extended Release 24 Hour Oral; Duration: 30 Days Active Atorvastatin Calcium 40 MG Tablet Oral; Duration: 90 Days Active Cyclobenzaprine HCl 10 MG Tablet Oral; Duration: 30 Days Active Metoprolol Succinate ER 50 M G Tablet Extended Release 24 Hour Oral; Duration: 30 Days Active Flecainide Acetate 50 MG Tablet Oral; Duration: 30 Days Active cloNIDine HCl 0.1 MG Tablet Oral; Durati on: 90 Days Active oxyCODONE HCl 10 MG Tablet Oral 10/20/2023 Not-Taking Flecainide Acetate 100 MG Tablet TAKE 1 TABLET BY MOUTH EVERY 12 HOURS Oral; Duration: 30 Days Active Flecainide Acetate 100 MG Tablet TAKE 1 TABLET BY MOUTH EVERY 12 HOURS Oral; Duration: 30 Days Not-Taking QUEtiapine Fumarate 400 MG Tablet 1 tablet every night Oral Once a day; Duration: 90 days 05/14/2025 Active Isosorbide Mononitrate ER 60 MG Tablet Extended Release 24 Hour TAKE 1 TABLET BY MOUTH DAILY Oral; Duration: 30 Days Active DULoxetine HCl 60 MG Capsule Delayed Release Particles 1 capsule Orally Once a day; Duration: 90 days 05/14/2025 Active hydroCHLOROthiazide 25 MG Tablet Oral; Duration: 90 Days Active hydrOXYzine HCl 50 MG Tablet Oral; Durat ion: 30 Days Active Social History Tobacco Use: Social History [...] Status Risk Notes Problem Generalized anxiety disorder (30013400) Generalized anxiety disorder (F41.1) Active confirmed Problem Primary insomnia (4593645) Primary insomnia (F51.01) Active confirmed Problem Rheumatoid arthritis (87644132) Rheumatoid arthritis, unspecified (M06.9) Active confirmed Problem Chronic posttraumatic stress disorder (827832199) Chronic posttraumatic stress disorder (F43.12) Active confirmed Problem Generalized anxiety disorder (74621813) ROSA (generalized anxiety disorder) (F41.1) Active confirmed Problem Severe major depression with psychotic features (23587465) Depression, major, recurrent, 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) Active confirmed Problem Mixed hyperlipidemia (266894718) Mixed hyperlipidemia (E78.2) 05/25/20 21 Active confirmed Problem Hypertension (96760032) Hypertension (I10) 04/11/20 19 Active confirmed Problem Lumbar post-laminectomy syndrome (860438918) Lumbar post-laminectomy syndrome (M96.1) 01/22/20 24 Active confirmed Vital Signs Heart Rate 80 /min 11/22/2024 Height-cm 190.5 cm 05/14/2025 Blood pressure diastolic 85 mm Hg 11/22/2024 Weight-kg 154.22 kg 05/14/2025 Height 75.00 in 05/14/2025 Blood pressure systolic 138 mm Hg 11/22/2024 Weight 340 lbs 05/14/2025 BMI 42.49 kg/m2 05/14/2025 Encounters Encounter Location Date Provider Diagnosis [address] [address] 07/01/2024 Fadi Gorman Depression, major, recurrent, severe with psychosis F33.3 ; Generalized anxiety disorder F41.1 ; Chronic posttraumatic stress disorder F43.12 and Primary insomnia F51.01 [facility] [address] [address] 07/02/2024 Sally Shakira Depression, major, recurrent, severe with psychosis F33.3 ; Chronic posttraumatic stress disorder F43.12 and Generalized anxiety disorder F41.1 [facility] [address] [address] 07/10/2024 Sally Shakira Depression, major, recurrent, severe with psychosis F33.3 ; Generalized anxiety disorder F41.1 and Chronic posttraumatic stress disorder F43.12 [facility] [address] [address] 08/16/2024 Sally Shakira Depression, major, recurrent, severe with psychosis F33.3 ; Generalized anxiety disorder F41.1 and Chronic posttraumatic stress disorder F43.12 [facility] [address] [address] 08/19/2024 Fadi Vita Depression, major, recurrent, severe with psychosis F33.3 ; Generalized anxiety disorder F41.1 ; Chronic posttraumatic stress disorder F43.12 ; Primary insomnia F51.01 and ROSA (generalized anxiety disorder) F41.1 [place] [address] [place] [address] 08/30/2024 Sally Rosenberg Depression, major, recurrent, severe with psychosis F33.3 ; Generalized anxiety disorder F41.1 and Chronic posttraumatic stress disorder F43.12 [place] [address] [place] [address] 09/19/2024 Sallybucky Rosenberg Encounter for screen ing for depression Z13.31 ; Depression, major, recurrent, severe with psychosis F33.3 ; Chronic posttraumatic stress disorder F43.12 and Generalized anxiety disorder F41.1 [place] [address] [place] [address] 09/30/2024 Fadi Vita Depression, major, recurrent, severe with psychosis F33.3 ; Lumbar post-laminectomy syndrome M96.1 ; Hypertension I10 ; Mixed hyperlipidemia E78.2 ; Generalized anxiety disorder F41.1 ; Chronic posttraumatic stress disorder F43.12 ; Primary insomnia F51.01 ; ROSA (generalized anxiety disorder) F41.1 ; Encounter for screening for depression Z13.31 and Benign essential HTN I10 [place] [address] [place] [address] 10/03/2024 Sally Rosenberg Chronic posttraumati c stress disorder F43.12 ; Generalized anxiety disorder F41.1 and Depression, major, recurrent, severe with psychosis F33.3 [place] [address] [place] [address] 11/22/2024 Fadi Vita Chronic posttraumati c stress [...] lung J18.9 and Stable angina pectoris I20.[address] [address] 12/04/2024 Sally Rosenberg Depression, major, recurrent, severe with psychosis F33.3 ; Generalized anxiety disorder F41.1 ; Chronic posttraumatic stress disorder F43.12 and Encounter for screening for depression Z13.[address] [address] 02/12/2025 Fadibrisa Gorman Generalized anxiety disorder F41.1 ; Depression, major, recurrent, severe with psychosis F33.3 and Chronic posttraumatic stress disorder F43.[address] [address] 05/14/2025 Fadibrisa Gorman Generalized anxiety disorder F41.1 ; Depression, major, recurrent, severe with psychosis F33.3 ; Chronic posttraumatic stress disorder F43.12 ; Premature ventricular contractions I49.3 ; Hypertension I10 ; Primary insomnia F51.01 ; Rheumatoid arthritis, unspecified M06.9 and Mixed hyperlipidemia E78.[address] [address] 07/04/2024 Fadi Gorman [address] [address] 11/22/2024 Fadi Gorman [address] [address] 06/11/2025 Fadi Gorman Assessments Encounter Date Diagnosis (ICD Code) Assessment Notes Treatment Notes Treatment Clinical Notes Section Notes 07/01/2024 Depression, major, recurrent, severe with psychosis [...] and severity of PVCs. - Refer to supplier quality manager if symptoms worsen or do not improve. [...] - Plan: - Send all prescriptions to [facility]. - Ensure patient is aware of any changes in medication regimen. - Confirm duloxetine will remain at 30 mg. Substance Use - Plan: - Continue to monitor and educate about potential interactions with prescribed medications. 08/16/2024 Depression, major, recurrent, severe with psychosis (ICD-10 - F33.3) 08/19/2024 Depression, major, recurrent, severe with psychosis (ICD-10 - F33.3) 08/30/2024 Generalized anxiety disorder (ICD-10 - F41.1) 08/30/2024 Depression, major, recurrent, severe with psychosis (ICD-10 - F33.3) 09/19/2024 Encounter for screening for depression (ICD-10 - Z13.31) 09/19/2024 Depression, major, recurrent, severe with psychosis (ICD-10 - F33.3) 10/03/2024 Generalized anxiety disorder (ICD-10 - F41.1) 10/03/2024 Chronic posttraumatic stress disorder (ICD-10 - F43.12) 11/22/2024 Generalized anxiety disorder (ICD-10 - F41.1) [...] increasing duloxetine dosage. - Monitor anxiety symptoms. 05/14/2025 Generalized anxiety disorder (ICD-10 - F41.1) Frequent panic attacks and anxiety exacerbated by arrhythmia episodes. Flashbacks related to past trauma contribute to anxiety. Patient attempts self-talk and coping strategies; provides support. - Start clonazepam for anxiety management. - Referral to psychiatry (Francisca) for further evaluation. 09/30/2024 Mixed hyperlipidemia (ICD-10 - E78.2) 09/30/2024 Hypertension (ICD-10 - I10) 09/30/2024 Depression, major, recurrent, severe with psychosis (ICD-10 - F33.3) 09/30/2024 Lumbar post-laminectom y syndrome (ICD-10 - M96.1) 07/10/2024 Depression, major, recurrent, severe with psychosis (ICD-10 - F33.3) 07/02/2024 Depression, major, recurrent, severe with psychosis (ICD-10 - F33.3) 12/04/2024 Chronic posttraumatic stress disorder (ICD-10 - F43.12) 07/02/2024 Chronic posttraumatic stress disorder (ICD-10 - F43.12) 07/10/2024 Generalized anxiety disorder (ICD-10 - F41.1) 09/30/2024 Generalized anxiety disorder (ICD-10 - F41.1) 05/14/2025 Depression, major, recurrent, severe with psychosis (ICD-10 - F33.3) Depressed mood, fatigue, and poor sleep persist. Patient reports occasional improvement but overall sleep remains poor. provides support; frustration with persistent symptoms. - Continue duloxetine as prescribed. - Continue quetiapine as prescribed. 05/14/2025 Chronic posttraumatic stress disorder (ICD-10 - F43.12) [...] Chronic posttraumatic stress disorder (ICD-10 - F43.12) 08/30/2024 Chronic posttraumatic stress disorder (ICD-10 - F43.12) 08/19/2024 Generalized anxiety disorder (ICD-10 - F41.1) 08/16/2024 Generalized anxiety disorder (ICD-10 - F41.1) 07/01/2024 Generalized anxiety disorder (ICD-10 - F41.1) [...] and severity of PVCs. - Refer to supplier quality manager if symptoms worsen or do not improve. [...] - Plan: - Send all prescriptions to [facility]. - Ensure patient is aware of any changes in medication regimen. - Confirm duloxetine will remain at 30 mg. Substance Use - Plan: - Continue to monitor and educate about potential interactions with prescribed medications. 08/16/2024 Chronic posttraumatic stress disorder (ICD-10 - F43.12) 08/19/2024 Chronic posttraumatic stress disorder (ICD-10 - F43.12) 09/19/2024 Generalized anxiety disorder (ICD-10 - F41.1) 11/22/2024 Encounter for screening for cardiovascular disorders (ICD-10 - Z13.6) 12/04/2024 Encounter for screening for depression (ICD-10 - Z13.31) 07/01/2024 Chronic posttraumatic stress disorder (ICD-10 - [...] and severity of PVCs. - Refer to supplier quality manager if symptoms worsen or do not improve. [...] - Plan: - Send all prescriptions to [facility] in [place]. - Ensure patient is aware of any changes in medication regimen. - Confirm duloxetine will remain at 30 mg. Substance Use - Plan: - Continue to monitor and educate about potential interactions with prescribed medications. 02/12/2025 Chronic posttraumatic stress disorder (ICD-10 - F43.12) 05/14/2025 Premature ventricular contractions (ICD-10 - I49.3) Episodes of palpitations and dyspnea persist after heart ablation performed 2.5 months ago. Rare PVCs continue to cause symptoms, especially when lying down. Patient expresses concern about incomplete ablation and persistent arrhythmia. Medication dosing adjusted to address symptoms. - Continue flutamide at reduced dose (50 mg). - Consider contacting heart surgeon regarding medication dosing. 07/10/2024 Chronic posttraumatic stress disorder (ICD-10 - F43.12) 09/30/2024 Chronic posttraumatic stress disorder (ICD-10 - F43.12) 07/02/2024 Generalized anxiety disorder (ICD-10 - F41.1) 09/30/2024 Primary insomnia (ICD-10 - F51.01) 05/14/2025 Hypertension (ICD-10 - I10) History of severely elevated blood pressure (up to 238/135) requiring hospitalization. Blood pressure now controlled with new heart doctor and medication adjustments. Patient remains concerned about stroke risk. - Continue clonidine 0.1 mg as prescribed. 11/22/2024 Encounter for screening for depression (ICD-10 - Z13.31) 08/19/2024 Primary insomnia (ICD-10 - F51.01) Electronic Prior Authorization was requested for Belsomra 20 MG Tablet. Provider can order medication once approval received. 07/01/2024 Primary insomnia (ICD-10 - F51.01) Electronic [...] and severity of PVCs. - Refer to supplier quality manager if symptoms worsen or do not improve. [...] - Plan: - Send all prescriptions to [facility]. - Ensure patient is aware of any changes in medication regimen. - Confirm duloxetine will remain at 30 mg. Substance Use - Plan: - Continue to monitor and educate about potential interactions with prescribed medications. 08/19/2024 ROSA (generalized anxiety disorder) (ICD-10 - F41.1) 05/14/2025 Primary insomnia (ICD-10 - F51.01) Difficulty sleeping and fatigue impact daily life. Patient reports poor sleep with occasional improvement. - Start Belsomra 20 mg for insomnia. 11/22/2024 Hypertension (ICD-10 - I10) 09/30/2024 ROSA (generalized anxiety disorder) (ICD-10 - F41.1) 05/14/2025 Rheumatoid arthritis, unspecified (ICD-10 - M06.9) Severe RA affecting back; fusion not yet received. Patient uses ice pack for pain relief. 11/22/2024 Primary insomnia (ICD-10 - F51.01) Patient reports poor sleep. Considering medication effects. - Monitor sleep patterns. - Consider adjusting oxycodone dosage. 05/14/2025 Mixed hyperlipidemia (ICD-10 - E78.2) Pitavastatin prescribed for ongoing management of hyperlipidemia. - Continue pitavastatin as prescribed. 11/22/2024 ROSA (generalized anxiety disorder) (ICD-10 - [...] Monitor cardiac symptoms. - Consider follow-up with supplier quality manager if symptoms persist. 09/30/2024 Encounter for screening for depression (ICD-10 - Z13.31) 09/30/2024 Benign essential HTN (ICD-10 - I10) 07/02/2024 Other Client reports he was in [...] in to see a cardiiologist over at [facility]. He reports his home furnace quit working. He reports he has not had the energy to do much of anything. Therapist actively listened to client an dutilized a cognitive behavioral intervention to help client explore possible activities he can engage in to help pass the time while he is waiting to see the new supplier quality manager. PHQ=7 mild ROSA=13 moderate 08/19/2024 Other PTSD [...] and 160/90. Currently on metoprolol, diltiazem, and hydrochlorothiazide (as needed). - Plan: - Continue current [...] new cardiac concerns. - Follow up with supplier quality manager as needed. Pain Management - Assessment: Patient is prescribed oxycodone for pain but only takes it once daily due to fear of addiction. - Plan: - Encourage responsible use of pain medication as prescribed. - Consider non-pharmacological pain management strategies (physical therapy, relaxation techniques). [...] on a 12 day cruise from [facility] to a port in [place]. Client focused on panic attacks and wants [...] which then caused hypotension. Plan: - Continue hydrochlorothiazide for cardiac issues - Defer to cardiology [...] ensure accuracy, there may be errors, including mobile home servicer inaccuracies and misspellings of medication names. This [...] A sleep study has been scheduled at [facility] to further evaluate sleep issues. Plan: [...] ensure accuracy, there may be errors, including mobile home servicer inaccuracies and misspellings of medication names. This document should not be considered a verbatim record, and any discrepancies should be verified with the provider. Plan Of Treatment Next Appt Details Provider Name:Fadi Gorman , 07/09/2025 02:00:00 PM, [address], [address], [place], [address], Insurance Providers Payer Name Payer Address Payer Phone Subscriber Number Group Number Insured Name Patient Relationship to Insured Coverage Start Date Coverage End Date Medicare-I l Medicare [address] [place] [phone] [id number] [place] MENENDEZ Self - patient is the insured [facility] Ppo [address] [place] [address] [id number] [place] MENENDEZ Self - patient is the insured Medical (General) History Medical History History ICD Code Problems: Chronic post-traumatic stress disorder Generalized anxiety disorder Severe recurrent major depression withou t psychotic features , Hypertension Rheumatoid arthritis Mixed hyperlipidemia Surgical History Surgery Date(Month/Year) Any surgical history Removal of gallbladder (25274) Cataract surgery (26382) Other Tonsilectomy/adenoids Any surgical history Removal of gallbladder (68270) Cataract surgery (76811) Other Tonsilectomy/adenoids Heart ablation, 2.5 months ago Denies any other surgical history Hospitalization History Reason Date(Month/Year) Uncontrolled hypertension, h ospitalization for 3 days, almost 2.5 months ago
--- OUTSIDE RECORDS SUMMARY | 2025-06-19 13:04 | XMS_ITS | Clinical Summary ---
Author Organization [facility] Address [address] [place] [address] Care Team Providers Care Dog Track Kennel Manager Name Role Phone Unavailable Primary Care Provider [...] Comments Blood Pressure 160/80 08/04/2023 10:04 AM [facility] Pulse 86 08/04/2023 10:04 AM [facility] Temperature 36.1 C (97 F) 08/04/2023 10:04 AM [facility] Respiratory Rate 18 08/04/2023 10:04 AM [facility] Oxygen Saturation 99% 08/04/2023 10:04 AM [facility] Inhaled Oxygen Concentration - - Weight 149 kg (329 lb) 08/04/2023 10:04 AM [facility] Height 190.5 cm (6' 3) 02/02/2022 10:07 [...] Comments HEMOGLOBIN A1C Routine 07/18/2023 8:45 AM [facility] from Last 3 Months or Most Recently Relevant to Health Maintenance Results * Hemoglobin A1c (07/18/2023 8:45 AM [facility]) Hemoglobin A1C 5.2 <5.7 % of total Hgb [facility] Comment: For the purpose of screening for the presence of diabetes: <5.7% Consistent with the absence of diabetes 5.7-6.4% Consistent with increased risk for diabetes (prediabetes) > or =6.5% Consistent with diabetes This assay result is consistent with a decreased risk of diabetes. Currently, no consensus exists regarding use of hemoglobin A1c for diagnosis of diabetes in children. According to [place] Diabetes Association (ADA) guidelines, hemoglobin A1c <7.0% represents optimal control in non- diabetic patients. Different metrics may apply to specific patient populations. Standards of Medical Care in Diabetes(ADA). HbA1c performed on [employer] platform. 07/18/2023 8:45 AM [facility] 07/18/2023 8:47 AM [facility] Narrative [facility] - 07/19/2023 11:03 AM [facility] FASTING:YES FASTING: YES Jez Haines DO LAB BLOOD ORDERABLES Final R esult [facility] [address] [place] [address] from Last 3 Months or Most Recently Relevant to Health Maintenance Insurance Medicare [facility]
--- OUTSIDE RECORDS SUMMARY | 2025-06-19 13:04 | XMS_ITS | Encounter Summary ---
Author Organization [facility] Address [facility] [address] Phone Care Team Providers Care Soloist Dancer Name Role Phone Unavailable Primary Care Provider Unavailabl e Reason for Visit * Reason Comments Med Refill Encounter Details Date Type Department Care Team (Late st Contact Info) Description 03/01/2024 Refill [place] Performance Indicator [facility], [address] [address] Jez Haines DO [address] [address] Social History Tobacco Use Types [...]
--- OUTSIDE RECORDS SUMMARY | 2025-06-19 13:05 | XMS_ITS | Clinical Summary ---
Author Organization [facility] Address [address] [place] [address] Phone Care Team Providers Care Audio/Visual Manager Name Role Phone Montana Gayle DO Primary Care Provider [phone] Allergies Active Allergy Reactions Criticality Noted Date [...] severe pain. Active APAP-CODEINE & DIET MANAGE RI PO Take 300 mg by mouth 3 [...] of Treatment Not on file Insurance MEDICARE [facility] Care Teams Audio/Visual Manager Relationship Specialty Start Date End Date Montana Gayle DO [address] [place] [id number] PCP - General Internal Medicine 09/17/18
--- NOTE | 2025-06-19 14:14 | ED.RECABL ---
HPI - Recheck/Abnormal Lab/Rx General Chief Complaint: Recheck/Abnormal Lab/Rx Stated Complaint: low bp at physical therapy Time Seen by Provider: 06/19/25 14:14 Focused HPI: This is a 65 year old male that presents to the ER for low blood pressure. Reports he was at physical therapy and his blood pressure was in the 90s systolic. Reports he felt flushed, lightheaded. He feels well now, blood pressure is normal. GENERAL: Well-appearing, well-nourished, and in no acute distress. HEAD: Normocephalic, atraumatic. CHEST: No respiratory distress. HEART: Regular rate NEURO: ?Alert and oriented x3. Patient screened in triage and initial orders placed.? ?Additional care and disposition to be based upon?diagnostic testing and treatment. Related Data Home Medications ?Medication ?Instructions ?Recorded ?Confirmed ?Last Taken ?Type atorvastatin 40 mg tablet (Lipitor) 40 mg PO DAILY 01/04/20 05/02/25 07/06/20 09:00 History fenofibrate 160 mg tablet 160 mg PO DAILY 01/04/20 05/02/25 07/05/20 17:00 History cyclobenzaprine 10 mg tablet 10 mg PO BID PRN muscle spasm 04/05/21 05/02/25 Unknown History hydrochlorothiazide 25 mg tablet 25 mg PO DAILY 04/05/21 05/02/25 Unknown History atogepant 60 mg tablet (Qulipta) 60 mg PO DAILY PRN headache 05/02/25 05/02/25 Unknown History clonidine HCl 0.1 mg tablet 0.1 mg PO DAILY PRN hypertensive 05/02/25 05/02/25 Unknown History emergency diltiazem HCl 360 mg 360 mg PO Q24H 05/02/25 05/02/25 Unknown History capsule,extended release 24 hr duloxetine 60 mg capsule,delayed 60 mg PO DAILY 05/02/25 05/02/25 Unknown History release isosorbide mononitrate 60 mg 60 mg PO DAILY 05/02/25 05/02/25 Unknown History tablet,extended release 24 hr metoprolol succinate 50 mg 50 mg PO Q12H 05/02/25 05/02/25 Unknown History tablet,extended release 24 hr polyethylene glycol 3350 17 17 g PO DAILY 05/02/25 05/02/25 Unknown History gram/dose oral powder (ClearLax) polyethylene glycol 3350 17 17 g PO DAILY 05/02/25 05/02/25 Unknown History gram/dose oral powder (ClearLax) potassium chloride 10 mEq 20 meq PO DAILY 05/02/25 05/02/25 Unknown History tablet,extended release quetiapine 400 mg tablet 200 mg PO HS 05/02/25 05/02/25 Unknown History sennosides 8.6 mg-docusate sodium 1 tab-cap PO DAILY PRN constipation 05/02/25 05/02/25 Unknown History 50 mg tablet (2-in-1 Laxative) Allergies Allergy/AdvReac Type Severity Reaction Status Date / Time aripiprazole Allergy Unknown Rash Verified 05/02/25 20:59 hydroxychloroquine Allergy Unknown Rash Verified 05/02/25 20:59 methotrexate Allergy Unknown Rash Verified 05/02/25 20:59 sumatriptan Allergy Unknown Rash Verified 05/02/25 20:59 zolpidem Allergy Unknown Rash Verified 05/02/25 20:59 [facility] Past Medical History Medical History Implantable loop recorder present Kidney stones Mitral valve prolapse Glaucoma Hepatic steatosis Posttraumatic stress disorder Transient ischemic attack Obstructive sleep apnea on CPAP Atrial fibrillation Status post ablation. On apixaban for stroke prophylaxis. COVID-19 (07/2020) Rheumatoid arthritis Skin cancer Anxiety Depression Arthritis Fibromyalgia Hypertension Hyperlipidemia Peripheral neuropathy Migraines Surgical History Surgical History Status post surgical removal of malignant neoplasm of skin History of arthroplasty of right shoulder History of arthroscopic knee surgery Status post ablation of atrial fibrillation History of cholecystectomy History of lumbar surgery History of loop recorder Family History Family History Mother Cancer Social History Social History Social History: . Lives with his in [place]. They have 2 children. 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 No alcohol, tobacco, or illicit substance use. Surrogate decision maker: Rubimaria isabel Menendez, spouse. Code status: Full code. Smoking status: Never smoker Alcohol intake: never Substance use: never Substance use type: does not use Lack of Transportation: No Lack of Food: Never True Current Housing: I Have Housing Concerned About Future Housing: No Difficulty Paying Gas/Electric Bills: No Difficulty Paying for Meds: No Currently Unemployed: No Education: Trade/Vocational Certificate Difficulty w/ Childcare or Family Care: No Living arrangements: with family Occupation/Education: retired Spiritual care concerns: No Course Vital Signs Vital signs: Vital Signs Temperature 97.6 F 06/19/25 12:11 Pulse Rate 74 06/19/25 12:11 Respiratory Rate 16 06/19/25 12:11 Blood Pressure 123/73 06/19/25 12:11 Pulse Oximetry 98 06/19/25 12:11 Temperature 97.6 F 06/19/25 12:11 Pulse Rate 60 06/19/25 14:16 Respiratory Rate 16 06/19/25 14:16 Blood Pressure 117/72 06/19/25 14:16 Pulse Oximetry 99 06/19/25 14:16 MDM MDM Narrative Medical decision making narrative: Patient left after medical screening exam and before any further evaluation or management Differential Diagnosis Differential Diagnosis: medication side effect, orthostatic hypotension, dehydration, infection Critical Care Time Critical Care Time Critical Care Time: No Discharge Plan Discharge Clinical Impression: Low blood pressure reading Patient Disposition: Elopement After Seen by Prov Patient Language: Ethiopian Prescriptions: No Action atorvastatin [Lipitor] 40 mg tablet 40 mg PO DAILY fenofibrate 160 mg tablet 160 mg PO DAILY Eliquis 5 mg Tablet 5 mg PO Q12HR Qty: 60 1RF cyclobenzaprine 10 mg Tablet 10 mg PO BID PRN (Reason: muscle spasm) hydrochlorothiazide 25 mg Tablet 25 mg PO DAILY clonidine HCl 0.1 mg tablet 0.1 mg PO DAILY PRN (Reason: hypertensive emergency) Rx Instructions: high blood greater than 170/90 potassium chloride 10 mEq tablet extended release 20 meq PO DAILY metoprolol succinate 50 mg tablet extended release 24 hr 50 mg PO Q12H diltiazem HCl 360 mg capsule,extended release 24hr 360 mg PO Q24H isosorbide mononitrate 60 mg tablet extended release 24 hr 60 mg PO DAILY duloxetine 60 mg capsule,delayed release(DR/EC) 60 mg PO DAILY Qulipta 60 mg tablet 60 mg PO DAILY PRN (Reason: headache) quetiapine 400 mg tablet 200 mg PO HS polyethylene glycol 3350 [ClearLax] 17 gram/dose powder 17 g PO DAILY polyethylene glycol 3350 [ClearLax] 17 gram/dose powder 17 g PO DAILY sennosides-docusate sodium [2-in-1 Laxative] 8.6-50 mg tablet 1 tab-cap PO DAILY PRN (Reason: constipation) flecainide 100 mg Tablet 100 mg PO Q12HR Qty: 60 0RF losartan 100 mg Tablet 100 mg PO DAILY Qty: 30 0RF spironolactone [Aldactone] 50 mg Tablet 50 mg PO QAM Qty: 30 0RF Follow-up/Referrals: PHYSICIAN NOT ON STAFF,NONSTAFF [Primary Care Provider]
[2025-06-19 14:16] VITALS: BP 117/72; PULSE 60; RESP 16; O2SAT 99
--- NOTE | 2025-06-19 14:30 | PC.NURSE ---
Pt called to room 18 for RN to do MSE orders, Pt stating My blood pressure is better, I think I'll go home. RN informed him there was an EKG and lab work ordered by the provider. Pt states he does not want them done, EDP made aware
--- NOTE | 2025-06-19 14:48 | PC.NURSE ---
Pt refused radiology testing. States his bp is normal now and he is going to leave.
--- OUTSIDE RECORDS SUMMARY | 2025-06-19 15:27 | XMS_ITS | Clinical Summary ---
Author Organization [facility] Address [address] [place] [address] Phone Care Team Providers Care Bulk Picker Name Role Phone Nolvia Olivares MD, Butch [...] times daily as needed. 0 Active omega 6-dok-lhw-fish oil 360-1,200 mg Capsule, Delayed Release(E.C.) Take [...] Comments Blood Pressure 102/59 07/13/2022 3:53 PM GROUP MANAGER Pulse 65 07/13/2022 3:51 PM GROUP MANAGER Temperature 36.6 C (97.8 F) 07/13/2022 3:51 PM GROUP MANAGER Respiratory Rate 18 07/13/2022 3:51 PM GROUP MANAGER Oxygen Saturation 98% 07/13/2022 3:51 PM GROUP MANAGER Inhaled Oxygen Concentration - - Weight 149.7 kg (330 lb) 05/10/2022 3:44 PM GROUP MANAGER Height 190.5 cm (6' 3) 05/10/2022 3:44 PM GROUP MANAGER Body Mass Index 41.25 05/10/2022 3:44 PM GROUP MANAGER Plan of Treatment Health Maintenance Due Date [...] Comments HEMOGLOBIN A1C Stat 05/21/2020 4:21 PM GROUP MANAGER from Last 3 Months or Most Recently Relevant to Health Maintenance Results * HEMOGLOBIN A1C (05/21/2020 4:21 PM GROUP MANAGER) HEMOGLOBIN A1C 5.5 <=5.6 % 05/22/2020 3:04 AM GROUP MANAGER [facility]. AVG GLUCOSE, A1C 111 mg/dL 05/22/2020 3:04 AM GROUP MANAGER [facility] [email or web address] [facility] Blood Venipuncture / Unknown 05/21/2020 4:21 PM GROUP MANAGER 05/21/2020 4:29 PM GROUP MANAGER Narrative [facility] [email or web address] [facility] - 05/22/2020 3:04 AM GROUP MANAGER HGB A1C INTERPRETATION NORMAL: <5.7% PRE-DIABETES: 5.7 - 6.4% DIABETES: 6.5% OR GREATER us Albert Allred MD CHEMISTRY ORDERABLES Final Res ult [facility] [email or web address] [facility] CLIA# [id number] [place] [address] from Last 3 Months or Most Recently Relevant to Health Maintenance Insurance MEDICARE PART A AND B [facility] BLUE ACCESS/TRUE BLUE PPO Advance Directives For more information, please contact: [phone] * Full Code (Latest Code Status on File) Date Activated Date Inactivated Comments 07/11/2022 5:49 PM 07/13/2022 7:24 PM * Full Code Date Activated Date Inactivated Comments 03/30/2022 12:44 PM 03/30/2022 8:02 PM * Full Code Date Activated Date Inactivated Comments 05/22/2020 6:25 AM 05/23/2020 7:43 PM Care Teams Bulk Picker Relationship Specialty Start Date End Date Butch De Souza Jr., MD [address] [place] [address] [phone] PCP - General Internal Medicine 05/10/22
--- OUTSIDE RECORDS SUMMARY | 2025-06-19 15:27 | XMS_ITS | Clinical Summary ---
Author Organization [facility] Address [address] [place] [id number] Care Team Providers Care Remarketing Manager Name Role Phone Unavailable Primary Care [...] Comments Blood Pressure 160/80 08/04/2023 10:04 AM STAMPER BLOCKER Pulse 86 08/04/2023 10:04 AM STAMPER BLOCKER Temperature 36.1 C (97 F) 08/04/2023 10:04 AM STAMPER BLOCKER Respiratory Rate 18 08/04/2023 10:04 AM STAMPER BLOCKER Oxygen Saturation 99% 08/04/2023 10:04 AM STAMPER BLOCKER Inhaled Oxygen Concentration - - Weight 149 kg (329 lb) 08/04/2023 10:04 AM STAMPER BLOCKER Height 190.5 cm (6' 3) 02/02/2022 10:07 [...] Comments HEMOGLOBIN A1C Routine 07/18/2023 8:45 AM STAMPER BLOCKER from Last 3 Months or Most Recently Relevant to Health Maintenance Results * Hemoglobin A1c (07/18/2023 8:45 AM STAMPER BLOCKER) Hemoglobin A1C 5.2 <5.7 % of total [facility] Comment: For the purpose of screening for the presence of diabetes: <5.7% Consistent with the absence of diabetes 5.7-6.4% Consistent with increased risk for diabetes (prediabetes) > or =6.5% Consistent with diabetes This assay result is consistent with a decreased risk of diabetes. Currently, no consensus exists regarding use of hemoglobin A1c for diagnosis of diabetes in children. According to [place] [employer] (ADA) guidelines, hemoglobin A1c <7.0% represents optimal control in non- diabetic patients. Different metrics may apply to specific patient populations. Standards of Medical Care in Diabetes(ADA). HbA1c performed on Andel platform. 07/18/2023 8:45 AM STAMPER BLOCKER 07/18/2023 8:47 AM STAMPER BLOCKER Narrative [facility] - 07/19/2023 11:03 AM STAMPER BLOCKER FASTING:YES FASTING: YES Jez Haines DO LAB BLOOD ORDERABLES Final R esult [facility] [address] [id number] from Last 3 Months or Most Recently Relevant to Health Maintenance Insurance Medicare [facility]
--- OUTSIDE RECORDS SUMMARY | 2025-06-19 15:27 | XMS_ITS | Clinical Summary ---
Author Organization [facility] Address [address] [place] [address] Phone Care Team Providers Care Wood Gang Sawyer Name Role Phone CHRIS MALAVE DO Primary Care Provider [phone] CHRIS MALAVE D.O. Unavailable [phone] Reason for Visit and Chief Complaint visit for: ER f/u from [facility] from 01-04-20 with abdomnial pain and says he couldn't urinate. He says he gets headache, his stomach, low back and between his shoulder blades hurts. he discussed that he has chest pressure - The Chief Complaint is: ER f/u from [facility] from 01-04-20 with abdomnial pain and says he couldn't urinate. He says he gets headache, his stomach, low back andbetween his shoulder blades hurts Problems Includes: Problems addressed during this encounter and other active Problems All Visits Onset Date Resolved Date Provider Condition S tatus Chronic Obstructive Pulmonary Disease 03/18/2019 CHRIS MALAVE D.O. Active Last Documented On 9 2:50PM ; [facility] Pneumonia 11/19/2018 CHRIS MALAVE D.O. Act azar Last Documented On 9 4:06PM ; [facility] Sleep apnea, unspecified 09/28/2018 CHRIS GE D.O. Active Last Documented On 9 3:48PM ; [facility] Acute pain due to trauma 02/28/2018 CHRIS GE D.O. Active Last Documented On 8 4:14PM ; [facility] Cervicalgia 02/28/2018 CHRIS A CRANCER D.O. Ac tive Last Documented On 8 2:25PM ; [facility] Familial Hypertriglyceridemia 01/11/2018 CHRIS A CRANCER D.O. Active Last Documented On 8 2:28PM ; [facility] Rheumatoid Arthritis Multiple Sites 01/11/2018 CHRIS A CRANCER D.O. Active Last Documented On 8 2:22PM ; [facility] Hypoxemia 07/13/2017 CHRIS A CRANCER D.O. 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 Active Last Documented On 8 9:13AM ; [facility] Arthralgia - Shoulder Region Left 01/12/2017 LE STER A CRANCER D.O. Active Last Documented On 7 3:34PM ; [facility] Low Back Pain 09/12/2016 CHRIS A CRANCER D.O. Active Last Documented On 7 1:37PM ; [facility] Myalgia 04/01/2015 CHRIS A CRANCER D.O. Act azar Last Documented On 5 10:55AM ; [facility] Transient Ischemic Attack (T ia) Without Residual Deficits 06/18/2014 CHRIS A CRANCER D.O. Active Last Documented On 4 5:24PM ; [facility] Celiac Disease 05/02/2014 CHRIS A CRANCER D.O. Active Last Documented On 4 1:38PM ; [facility] Hematuria 09/05/2013 CHRIS A CRANCER D.O. Act azar Last Documented On 4 10:43AM ; [facility] Note: Unchanged Pure Hypercholesterolemia 05/18/2012 CHRIS A C RANCER D.O. Active Last Documented On 4 4:16PM ; [facility] Atrial Fibrillation 05/18/2012 CHRIS A CRANCER D.O. Active Last Documented On 4 4:16PM ; [facility] Depressive Disorder, Nos 05/18/2012 CHRIS GE D.O. Active Last Documented On 4 4:16PM ; [facility] Plan of Treatment - Return to the clinic if condition worsens or new symptoms arise - Last Documented On 01/19/2020 3:56PM ; [facility] - Referred to emergency room - Last Documented On 01/19/2020 3:56PM ; [facility] - Patient to call if problem develops - Last Documented On 01/19/2020 3:56PM ; [facility] BPH Continue Flomax Bloated abdomen Unclear etiology Talk to the GI doctor on Monday Chest pressure Will talk to ER. He is a complicated patient. Nitroglycerine may help but may interfere with his migraine. Will send him to ER. - Last Documented On 01/19/2020 3:56PM ; [facility] Education and Decision Aids were provided during visit for: Education and counseling Last Documented On 0 3:04PM ; [facility] Assessments Includes: Assessments from this encounter Findings - [R07.9 - Chest pain, unspecified] Chest pain or discomfort - Last Documented On 01/19/2020 3:56PM ; [facility] - [R14.0 - Abdominal distension (gaseous)] Abdominal bloating - Last Documented On 01/19/2020 3:56PM ; [facility] - [N40.0 - Benign prostatic hyperplasia without lower urinary tract symptoms] Benign prostatic hypertrophy - Last Documented On 01/19/2020 3:56PM ; [facility] Instructions Includes: Instructions from this encounter Education and Decision Aids were provided during visit for: Education and counseling Last Documented On 0 3:04PM ; [facility] Medical Equipment - Implanted Devices Includes: Current Devices No Medical Equipment Recorded Medications Includes: Medications discussed during this encounter and other current Medications Discontinued / Stopped on this date CHRIS MALAVE D.O. on 11/13/2019 Amoxicillin-Pot Clavulanate 875-125 MG Oral Tablet Provider: CHRIS MALAVE D.O. Diagnosis: Acute sinusitis, unspecified Last Documented On 01/10/2020 2:58PM By ASHISH SMILEY ; [facility] methylPREDNISolone 4 MG Oral Tablet Therapy Pack Provider: CHRIS Andre Diagnosis: Pain in left kne e Last Documented On 01/10/2020 2:58PM By ASHISH SMILEY ; [facility] Skelaxin 800MG Oral Tablet Provider: Bety MALAVE D.O. Diagnosis: Low back pain Last Documented On 01/10/2020 2:59PM By ASHISH SMILEY ; [facility] Tylenol with Codeine #3 300- 30MG Oral Tablet Provider: CHRIS Andre Diagnosis: Last Documented On 01/10/2020 2:59PM By ASHISH SMILEY ; [facility] Flonase Allergy Relief 50MCG/ACT Nasal Suspension Provider: CHRIS PATEL D.O. Diagnosis: Unspecified Eust achian tube disorder, unspecified ear Last Documented On 01/10/2020 2:58PM By ASHISH SMILEY ; [facility] Current Medications (continue as prescribed) Potassium Chloride Torri ER 2 0 MEQ Oral Tablet Extended Release 09/21/2020 Provider: CHRIS MALAVE D.O. Diagnosis: TAKE 1 TABLET BY MOUTH DAILY Last Documented On 09/21/2020 4:02PM By ASHISH SMILEY ; [facility] Fluticasone Propionate 50 MCG/ACT Nasal Suspension 08/13/2020 Provider: CHRIS Rubio D.O. Diagnosis: Oth disrd of Eus tachian tube, unspecified ear 2 sprays each nostril once daily. Last Documented On 08/13/2020 2:29PM By JOSE DHILLON ; [facility] Isosorbide Mononitrate ER 30 MG Oral Tablet Extended Release 24 Hour 08/13/2020 Provider: Diagnosis: 1 qdCardiology Last Documented On 08/13/2020 2:17PM By ASHISH SMILEY ; [facility] Vascepa 1 GM Oral Capsule 08/13/2020 Provider: Diagnosis: 2 po BID Last Documented On 08/13/2020 2:20PM By ASHISH SMILEY ; [facility] Leflunomide 10 MG Oral Tablet 08/13/2020 Provider: Diagnosis: 1/2 tab qd Last Documented On 08/13/2020 2:19PM By ASHISH SMILEY ; [facility] SEROquel 300 MG Oral Tablet 08/13/2020 Provider: Diagnosis: 1 qdPsychiatrist Last Documented On 08/13/2020 2:16PM By ASHISH SMILEY ; [facility] Atorvastatin Calcium 40 MG Oral Tablet 08/13/2020 Pr ovider: Diagnosis: 1 qdCardiology Last Documented On 08/13/2020 2:15PM By ASHISH SMILEY ; [facility] Aspirin Adult Low Dose 81 MG Oral Tablet Delayed Relea se 05/19/2020 Provider: Diagnosis: 1 po qdotc Last Documented On 05/19/2020 9:05AM By ASHISH SMILEY ; [facility] HYDROcodone-Acetaminophen 10-325 MG Oral Tablet 2019 Provider: Diagnosis: 1 every 8 hours. Last Documented On 08/14/2019 1:06PM By Carolina Velazco MA ; [facility] Nitrostat 0.4 MG Sublingual Tablet Sublingual 04/11/2019 Provider: CHRIS Andre Diagnosis: Chest pain, unsp ecified as directed ONE TAB AT ONSET OF PAIN AND MAY REPEAT EVERY 5-10 MIN UNTIL 3 DOSE OR RELIEF, TO ER IF THIRD DOSE NEEDED Last Documented On 04/11/2019 12:30PM By DEBBIE SMILEY ; [facility] Naproxen Sodium ER 500 MG Oral Tablet Extended R elease 24 Hour 03/14/2019 Provider: Diagnosis: 1-2 tabs po daily as needed for BENDER Last Documented On 03/14/2019 1:06PM By BRISEIDA ONEILL LPN ; [facility] [id number] Eth Est (Dietary) 1 GM Oral Capsule 03/14 Provider: Diagnosis: Take 2 caps in the a.m. and 2 in the p.m. Last Documented On 03/14/2019 1:11PM By BRISEIDA ONEILL LPN ; [facility] Prazosin HCl 2MG Oral Capsule 02/28/2018 Provider: Diagnosis: 2 mg at bedtime, Psychiatrist, Last Documented On 8 3:58PM By SHOLA SMILEY ; [facility] Cyanocobalamin 2500MCG Sublingual Tablet, sublingual 0 11/14/2017 Provider: Diagnosis: sublingual, every morning Last Documented On 8 10:40AM By SHOLA SMILEY ; [facility] Ascorbic Acid 500MG Oral Tablet 11/14/2017 Provider: Diagnosis: Last Documented On 8 10:39AM By SHOLA SMILEY ; [facility] Fenofibrate 160MG Oral Tablet 11/14/2017 Provider: Diagnosis: Last Documented On 8 10:38AM By SHOLA SMILEY ; [facility] AmLODIPine Besylate 10MG Oral Tablet 11/14/2017 Prov ider: Diagnosis: Last Documented On 8 10:36AM By SHOLA SMILEY ; [facility] SEROquel 300MG Oral Tablet 09/28/2017 Provider: Diagnosis: Take 2 at bedtime Last Documented On 8 1:06PM By SHOLA SMILEY ; [facility] Magnesium 250MG Oral Tablet 07/21/2017 Provider: Diagnosis: Take 2 in the am Last Documented On 8 3:43PM By SHOLA SMILEY ; [facility] Vitamin B-2 100MG Oral Tablet 04/21/2017 Provider: Diagnosis: Take 2 in the morning and 2 at bedtime Last Documented On 7 11:45AM By SHOLA SMILEY ; [facility] Leflunomide 20MG Oral Tablet 04/21/2017 Provider: Diagnosis: Take 1 in the morning Last Documented On 7 11:44AM By SHOLA SMILEY ; [facility] Gabapentin 300MG Oral Capsule 04/21/2017 Provider: Diagnosis: Take 1 in the morning and 2 at bedtime Last Documented On 7 11:43AM By SHOLA SMILEY ; [facility] Sotalol HCl 80MG Oral Tablet 04/21/2017 Provider: Diagnosis: Take 1/2 at bedtime Last Documented On 7 11:46AM By SHOLA SMILEY ; [facility] Melatonin 5MG Oral Tablet 04/21/2017 Provider: Diagnosis: Take 2 at bedtime Last Documented On 7 11:48AM By SHOLA SMILEY ; [facility] Vitamin D3 2000UNIT Oral Tablet 04/21/2017 Provider: Diagnosis: Take 2 in the morning Last Documented On 7 11:48AM By SHOLA SMILEY ; [facility] Topamax 100MG Oral Tablet 01/12/2017 Provider: Diagnosis: 1 po BID-Neurology fills this Last Documented On 01/12/2017 3:39PM By ASHISH SMILEY ; [facility] Warfarin Sodium 5 MG Tablet 07/22/2015 Provider: Diagnosis: Last Documented On 07/22/2015 8:47AM By Ximena SMILEY ; [facility] Medications Administered Includes: Administered Medications from this encounter No Administered Medications Recorded Vital Signs Includes: Vital Signs from this encounter Vital Name 01/10/2020 02:51P Blood Pressure Sitting (mmHg) 144/88 Pulse Rate-Sitting (bpm) 70 Respiration Rate (breaths/min) 22 Temp-Oral (F) 97.9 Height (in) 76 Weight (lb) 339.6 Body Mass Index (kg/m2) 41.3 Body Surface Area (m2) 2.8 Last Documented: On 01/10/2020 2:56PM ; [facility] Results Includes: Results discussed during this encounter No Results Recorded For Specified Dates History of Present Illness Includes: History of Present Illness from this encounter JESSE RODRIGUEZ is a 59 year old male. - No systemic symptoms. - Chest pain or discomfort. - No pulmonary symptoms. Patient was seen in the ER with a complaint of abdominal pain. He was also having difficulty urinating. He was prescribed Flomax. Urinating better with Flomax. Patient's CT revealed non-obstructing left sided nephrolithiasis. No changes in BMs. Reports occasional chest pain associated with breathing. Also complains of intermittent pressure in his chest. Has discomfort in his chest while lying down. Patient also complains of pain in his shoulders and lower back. Patient also complains of migraine headaches associated with vision changes. He states he sees dots in his vision Social History Description Last Updated Non-smoker 11/13/2019 Last Documented On 0 2:50PM ; [facility] Smoking status : Never smoker 03/14/2019 Last Documented On 0 2:50PM ; [facility] Currently 01/23/2014 Last Documented On 0 2:50PM ; [facility] No consumption of alcohol 01/23/2014 Last Documented On 0 2:50PM ; [facility] No tobacco use 01/23/2014 Last Documented On 0 2:50PM ; [facility] Not a current smoker 01/23/2014 Last Documented On 0 2:50PM ; [facility] Not using alcohol 01/23/2014 Last Documented On 0 2:50PM ; [facility] Not using drugs 01/23/2014 Last Documented On 0 2:50PM ; [facility] Procedures and Surgical History Includes: Procedures from this encounter Procedures Code Diagnosis Performing Provider Service L ocation Service Date regular exercise Last Documented On 0 3:05PM ; [facility] continue current medication Last Documented On 0 3:05PM ; [facility] plan of care reviewed and agreed to Last Documented On 0 3:05PM ; [facility] review of medications documented 1160F Last Documented On 0 2:56PM ; [facility] Clinical summary provided to patient Last Documented On 0 3:04PM ; [facility] Medical History Includes: Medical History addressed during this encounter Description Last Updated Pt does not get blood pressure checked a t other facility 01/20/2010 Last Documented On 0 2:50PM ; [facility] AFIB,RA,DEPRESSION,ELEVATED LIVER ENZYME S 09/17/2009 Last Documented On 0 2:50PM ; [facility] History of coronary artery disease 09/17 Last Documented On 0 2:50PM ; [facility] History of hyperlipidemia 09/17/2009 Last Documented On 0 2:50PM ; [facility] Exposure to dust 12/11/2008 Last Documented On 0 2:50PM ; [facility] Surgery BACK SURGERY 12/11/2008 Last Documented On 0 2:50PM ; [facility] Family History Includes: Family History addressed during this encounter Description Last Updated Family history reviewed - [facility] e last visit 09/18/2015 Last Documented On 0 2:50PM ; [facility] Sororal history of coronary artery disea se 11/04/2014 Last Documented On 0 2:50PM ; [facility] Family medical history : No significant family history 11/03/2014 Last Documented On 0 2:50PM ; [facility] Sister SEVERE HEART ARYTHMIA ? 12/11/2008 Last Documented On 0 2:50PM ; [facility] Review of Systems Includes: Review of Systems from this encounter Systemic: Not feeling poorly (malaise). No edema. Head: Headache. Cardiovascular: Chest pain or discomfort. Pulmonary: No dyspnea and not expressed as feeling short of breath. Neurological: No dizziness. Mental Status Includes: Mental Status from this encounter No Mental Status Recorded Functional Status Includes: Functional Status from this encounter No Functional Status Recorded Physical Exam Includes: Physical Exam from this encounter Allergies Includes: Active Allergies Substance Type Reaction Onset Date Resolved Date Statu s Plaquenil Allergy vision problems 04/23/2010 A ctive Last Documented On 0 1:06PM ; [facility] Imitrex Allergy rapid HR 04/23/2010 Active Last Documented On 0 1:06PM ; [facility] Abilify Allergy 04/23/2010 Active Last Documented On 0 1:06PM ; [facility] Encounters Encounter Provider Location Date Check-In Time Check-Out Time Diagnosis EMERGENCY ROOM FOLLOW UP CHRIS MALAVE D.O. [facility] 01/10/20 20 2:41PM 3:33PM Chest Pain Or Discomfort,B enign Prostatic Hypertrophy, Abdominal Bloating Insurance Includes: Active Insurance Policies Plan Name Member ID Group # Subscriber Relationship Effect azar Dates 1 - MEDICARE PART A CLAIMS/NGS [id number] KINDRA A RODRIGUEZ Self 12/01/2009 - Unknown 2 - [facility] [id number] KINDRA A RODRIGUEZ Self Clinical Notes Includes: Clinical Notes from this encounter No Clinical Notes Recorded
--- OUTSIDE RECORDS SUMMARY | 2025-06-19 15:27 | XMS_ITS ---
Care Plan - [facility] Created on: June 19, 2025 KINDRA RODRIGUEZ : 1960 Sex: Male Author Organization [facility] Address [address] [place] [address] Phone Care Team Providers Care Mobile Sales Assistant Name Role Phone CHRIS MALAVE DO Primary Care Provider [phone] CHRIS MALAVE D.O. Unavailable [phone]
--- OUTSIDE RECORDS SUMMARY | 2025-06-19 15:27 | XMS_ITS | Encounter Summary ---
Author Organization [facility] Address [facility] [address] Phone Care Team Providers Care Orchid Transplanter Name Role Phone Unavailable Primary Care Provider Unavailabl e Reason for Visit * Reason Comments Med Refill Encounter Details Date Type Department Care Team (Late st Contact Info) Description 03/01/2024 Refill [place] [facility], [address] [address] Jez Haines DO [address] [address] Social History Tobacco Use Types [...]
--- OUTSIDE RECORDS SUMMARY | 2025-06-19 15:28 | XMS_ITS | Clinical Summary ---
Author Organization [facility] Address [address] [place] [address] Phone Care Team Providers Care Service Order Taker Name Role Phone CHRIS MALAVE DO Primary Care Provider [phone] CRANJORGE D.O.CHRIS Unavailable [phone] Reason for Visit and Chief Complaint visit for: Hospital f/u from [facility]. He was admitted on 05/14/20 and discharged on 05/15/20. He says he was dx. with TIA and kidney stone and also potassium was low. He says his blood pressure was also high. Pt says he is now on 9 mg coumadin a day. ~Has a 7 mm stone in his kidney. the patient has htn custodial that is not well controlled - The Chief Complaint is: Hospital f/u from [facility]. He was admitted on 05/14/20 and discharged on 05/15/20. He says he was dx. with TIA and kidney stone and also potassium was low. He says his blood pressure was also high. Pt says he isnow on 9 mg coumadin a day Problems Includes: Problems addressed during this encounter and other active Problems Current Visit Onset Date Resolved Date Provider Conditio n Status Transient Ischemic Attack (Tia) Without Residual Deficits 06/18/2014 CHRIS A CRANCER D.O. Active Last Documented On 4 5:24PM ; [facility] Past Visits Onset Date Resolved Date Provider Condition Status Chronic Obstructive Pulmonary Disease 03/18/2019 CHRIS Albarado CRANCER D.O. Active Last Documented On 9 2:50PM ; [facility] Pneumonia 11/19/2018 CHRIS A CRANCER D.O. Act azar Last Documented On 9 4:06PM ; [facility] Sleep apnea, unspecified 09/28/2018 CHRIS A CR ANCER D.O. Active Last Documented On 9 3:48PM ; [facility] Acute pain due to trauma 02/28/2018 CHRIS A CR ANCER D.O. Active Last Documented On 8 4:14PM ; [facility] Cervicalgia 02/28/2018 CHRIS A CRANCER D.O. Ac tive Last Documented On 8 2:25PM ; [facility] Familial Hypertriglyceridemia 01/11/2018 CHRIS A CRANCER D.O. Active Last Documented On 8 2:28PM ; [facility] Rheumatoid Arthritis Multiple Sites 01/11/2018 CHRIS A CRANCER D.O. Active Last Documented On 8 2:22PM ; [facility] Hypoxemia 07/13/2017 CHRIS A CRANCER D.O. Act azar Last Documented On 8 9:13AM ; [facility] Migraine Headache Without In tractable Migraine Without Status Migrainosus 07/13/2017 CHRISCISNEROS NCER D.O. Active Last Documented On 8 9:13AM ; [facility] Arthralgia - Shoulder Region Left 01/12/2017 LE STER A CRANCER D.O. Active Last Documented On 7 3:34PM ; [facility] Low Back Pain 09/12/2016 CHRIS A CRANCER D.O. Active Last Documented On 7 1:37PM ; [facility] Myalgia 04/01/2015 CHRIS A CRANCER D.O. Act azar Last Documented On 5 10:55AM ; [facility] Celiac Disease 05/02/2014 CHRIS A CRANCER D.O. Active Last Documented On 4 1:38PM ; [facility] Hematuria 09/05/2013 CHRIS A CRANCER D.O. Act azar Last Documented On 4 10:43AM ; [facility] Note: Unchanged Pure Hypercholesterolemia 05/18/2012 CHRIS Verena C RANCER D.O. Active Last Documented On 4 4:16PM ; [facility] Atrial Fibrillation 05/18/2012 CHRIS Villa.OThai Active Last Documented On 4 4:16PM ; [facility] Depressive Disorder, Nos 05/18/2012 CHRIS Villa.OThai Active Last Documented On 4 4:16PM ; [facility] Plan of Treatment - Return to the clinic if condition worsens or new symptoms arise - Last Documented On 05/19/2020 11:36AM ; [facility] - Patient to call if problem develops - Last Documented On 05/19/2020 11:36AM ; [facility] Hypertension Okay controlled Renal calculi Cristopher obtain BMP today. Will get the records from [facility]. Patient has a 7 mm renal stone. No hydronephrosis Hypokalemia Potassium was 2.9 Patient was sent to the ER. Discussed with the ER doctor about the condition. - Last Documented On 05/19/2020 11:36AM ; [facility] Pending Tests Order Diagnosis Results Due Ordering P rovider Lab MAGNESIUM 09/03/20 CHRIS PEREIRA ER D.O. Last Documented On 1 3:57PM ; [facility] Lab BMP 09/03/20 CHRIS PEREIRA ER D.O. Last Documented On 1 3:57PM ; [facility] Education and Decision Aids were provided during visit for: Education and counseling Last Documented On 0 8:56AM ; [facility] Assessments Includes: Assessments from this encounter Findings - [I10 - Essential (primary) hypertension] Essential hypertension - Last Documented On 05/19/2020 11:36AM ; [facility] - [N20.0 - Calculus of kidney] Nephrolithiasis - Last Documented On 05/19/2020 11:36AM ; [facility] - [G45.9 - Transient cerebral ischemic attack, unspecified] Transient ischemic attack without residual deficits - Last Documented On 05/19/2020 11:36AM ; [facility] Instructions Includes: Instructions from this encounter Education and Decision Aids were provided during visit for: Education and counseling Last Documented On 0 8:56AM ; [facility] Medical Equipment - Implanted Devices Includes: Current Devices No Medical Equipment Recorded Medications Includes: Medications discussed during this encounter and other current Medications Discontinued / Stopped on this date on 03/14/2019 Potassium Chloride ER 20 MEQ Oral Tablet Extended Rele ase Provider: Diagnosis: Last Documented On 05/19/2020 9:04AM By ASHISH SMILEY ; [facility] Silvadene 1% External Cream Provider: CHRIS MALAVE D.O. Diagnosis: Sunburn, unspeci fied Last Documented On 05/19/2020 9:04AM By ASHISH SMILEY ; [facility] Current Medications (continue as prescribed) Potassium Chloride Torri ER 2 0 MEQ Oral Tablet Extended Release 09/21/2020 Provider: CHRIS MALAVE D.O. Diagnosis: TAKE 1 TABLET BY MOUTH DAILY Last Documented On 09/21/2020 4:02PM By ASHISH SMILEY ; [facility] Fluticasone Propionate 50 MCG/ACT Nasal Suspension 08/13/2020 Provider: CHRIS Rubio D.O. Diagnosis: Oth disrd of Eus tachian tube, unspecified ear 2 sprays each nostril once daily. Last Documented On 08/13/2020 2:29PM By JOSE DHILLON ; [facility] Isosorbide Mononitrate ER 30 MG Oral Tablet Extended Release 24 Hour 08/13/2020 Provider: Diagnosis: 1 qdCardiology Last Documented On 08/13/2020 2:17PM By ASHISH SMILEY ; [facility] Vascepa 1 GM Oral Capsule 08/13/2020 Provider: Diagnosis: 2 po BID Last Documented On 08/13/2020 2:20PM By ASHISH SMILEY ; [facility] Leflunomide 10 MG Oral Tablet 08/13/2020 Provider: Diagnosis: 1/2 tab qd Last Documented On 08/13/2020 2:19PM By ASHISH SMILEY ; [facility] SEROquel 300 MG Oral Tablet 08/13/2020 Provider: Diagnosis: 1 qdPsychiatrist Last Documented On 08/13/2020 2:16PM By ASHISH SMILEY ; [facility] Atorvastatin Calcium 40 MG Oral Tablet 08/13/2020 Pr ovider: Diagnosis: 1 qdCardiology Last Documented On 08/13/2020 2:15PM By ASHISH SMILEY ; [facility] Aspirin Adult Low Dose 81 MG Oral Tablet Delayed Relea se 05/19/2020 Provider: Diagnosis: 1 po qdotc Last Documented On 05/19/2020 9:05AM By ASHISH SMILEY ; [facility] HYDROcodone-Acetaminophen 10-325 MG Oral Tablet 2019 Provider: Diagnosis: 1 every 8 hours. Last Documented On 08/14/2019 1:06PM By Carolina Velazco MA ; [facility] Nitrostat 0.4 MG Sublingual Tablet Sublingual 04/11/2019 Provider: CHRIS Andre Diagnosis: Chest pain, unsp ecified as directed ONE TAB AT ONSET OF PAIN AND MAY REPEAT EVERY 5-10 MIN UNTIL 3 DOSE OR RELIEF, TO ER IF THIRD DOSE NEEDED Last Documented On 04/11/2019 12:30PM By DEBBIE SMILEY ; [facility] Naproxen Sodium ER 500 MG Oral Tablet Extended R elease 24 Hour 03/14/2019 Provider: Diagnosis: 1-2 tabs po daily as needed for BENDER Last Documented On 03/14/2019 1:06PM By BRISEIDA ONEILL LPN ; [facility] Cfbip-0-Wjzm Eth Est (Dietary) 1 GM Oral Capsule 03/14 Provider: Diagnosis: Take 2 caps in the a.m. and 2 in the p.m. Last Documented On 03/14/2019 1:11PM By BRISEIDA ONEILL LPN ; [facility] Prazosin HCl 2MG Oral Capsule 02/28/2018 Provider: Diagnosis: 2 mg at bedtime, Psychiatrist, Last Documented On 8 3:58PM By SHOLA SMILEY ; [facility] Cyanocobalamin 2500MCG Sublingual Tablet, sublingual 0 11/14/2017 Provider: Diagnosis: sublingual, every morning Last Documented On 8 10:40AM By SHOLA SMILEY ; [facility] Ascorbic Acid 500MG Oral Tablet 11/14/2017 Provider: Diagnosis: Last Documented On 8 10:39AM By SHOLA SMILEY ; [facility] Fenofibrate 160MG Oral Tablet 11/14/2017 Provider: Diagnosis: Last Documented On 8 10:38AM By SHOLA SMILEY ; [facility] AmLODIPine Besylate 10MG Oral Tablet 11/14/2017 Prov ider: Diagnosis: Last Documented On 8 10:36AM By SHOLA SMILEY ; [facility] SEROquel 300MG Oral Tablet 09/28/2017 Provider: Diagnosis: Take 2 at bedtime Last Documented On 8 1:06PM By SHOLA SMILEY ; [facility] Magnesium 250MG Oral Tablet 07/21/2017 Provider: Diagnosis: Take 2 in the am Last Documented On 8 3:43PM By SHOLA SMILEY ; [facility] Vitamin B-2 100MG Oral Tablet 04/21/2017 Provider: Diagnosis: Take 2 in the morning and 2 at bedtime Last Documented On 7 11:45AM By SHOLA SMILEY ; [facility] Leflunomide 20MG Oral Tablet 04/21/2017 Provider: Diagnosis: Take 1 in the morning Last Documented On 7 11:44AM By SHOLA SMILEY ; [facility] Gabapentin 300MG Oral Capsule 04/21/2017 Provider: Diagnosis: Take 1 in the morning and 2 at bedtime Last Documented On 7 11:43AM By SHOLA SMILEY ; [facility] Sotalol HCl 80MG Oral Tablet 04/21/2017 Provider: Diagnosis: Take 1/2 at bedtime Last Documented On 7 11:46AM By SHOLA SMILEY ; [facility] Melatonin 5MG Oral Tablet 04/21/2017 Provider: Diagnosis: Take 2 at bedtime Last Documented On 7 11:48AM By SHOLA SMILEY ; [facility] Vitamin D3 2000UNIT Oral Tablet 04/21/2017 Provider: Diagnosis: Take 2 in the morning Last Documented On 7 11:48AM By SHOLA SMILEY ; [facility] Topamax 100MG Oral Tablet 01/12/2017 Provider: Diagnosis: 1 po BID-Neurology fills this Last Documented On 01/12/2017 3:39PM By ASHISH SMILEY ; [facility] Warfarin Sodium 5 MG Tablet 07/22/2015 Provider: Diagnosis: Last Documented On 07/22/2015 8:47AM By Ximena SMILEY ; [facility] Medications Administered Includes: Administered Medications from this encounter No Administered Medications Recorded Vital Signs Includes: Vital Signs from this encounter Vital Name 05/19/2020 08:52A Blood Pressure Sitting (mmHg) 120/72 Respiration Rate (breaths/min) 20 Temp-Oral (F) 98.4 Height (in) 76 Weight (lb) 336.2 Body Mass Index (kg/m2) 40.9 Body Surface Area (m2) 2.8 Last Documented: On 05/19/2020 9:00AM ; [facility] Results Includes: Results discussed during this encounter Prothrombin Time [facility] Ordered by CHRIS MALAVE D.O. on 05/03 Collected: Reported: 05/19/2020 Last Documented On 0 11:12AM ; [facility] Reviewed on 05/19/2020; All test results are final unless otherwise noted. INR 1.1 A (Abnormal) Last Documented On 0 11:11AM ; [facility] PT 13.7 A (Abnormal) Last Documented On 0 11:11AM ; [facility] INT. QC ACCEPTABLE? yes N (Normal) Last Documented On 0 11:11AM ; [facility] LOT # & EXP. DATE [id number] 11-30-20 N (Normal) Last Documented On 0 11:11AM ; [facility] History of Present Illness Includes: History of Present Illness from this encounter JESSE RODRIGUEZ is a 59 year old male. - No systemic symptoms. - No cardiovascular symptoms. - No pulmonary symptoms. Social History Description Last Updated Non-smoker 11/13/2019 Last Documented On 0 8:52AM ; [facility] Smoking status : Never smoker 03/14/2019 Last Documented On 0 8:52AM ; [facility] Currently 01/23/2014 Last Documented On 0 8:52AM ; [facility] No consumption of alcohol 01/23/2014 Last Documented On 0 8:52AM ; [facility] No tobacco use 01/23/2014 Last Documented On 0 8:52AM ; [facility] Not a current smoker 01/23/2014 Last Documented On 0 8:52AM ; [facility] Not using alcohol 01/23/2014 Last Documented On 0 8:52AM ; [facility] Not using drugs 01/23/2014 Last Documented On 0 8:52AM ; [facility] Procedures and Surgical History Includes: Procedures from this encounter Procedures Code Diagnosis Performing Provider Service L ocation Service Date continue current medication Last Documented On 0 8:56AM ; [facility] plan of care reviewed and agreed to Last Documented On 0 8:56AM ; [facility] review of medications documented 1160F Last Documented On 0 9:07AM ; [facility] Clinical summary provided to patient Last Documented On 0 8:56AM ; [facility] Medical History Includes: Medical History addressed during this encounter Description Last Updated Pt does not get blood pressure checked a t other facility 01/20/2010 Last Documented On 0 8:52AM ; [facility] AFIB,RA,DEPRESSION,ELEVATED LIVER ENZYME S 09/17/2009 Last Documented On 0 8:52AM ; [facility] History of coronary artery disease 09/17 Last Documented On 0 8:52AM ; [facility] History of hyperlipidemia 09/17/2009 Last Documented On 0 8:52AM ; [facility] Exposure to dust 12/11/2008 Last Documented On 0 8:52AM ; [facility] Surgery BACK SURGERY 12/11/2008 Last Documented On 0 8:52AM ; [facility] Family History Includes: Family History addressed during this encounter Description Last Updated Family history reviewed - [facility] e last visit 09/18/2015 Last Documented On 0 8:52AM ; [facility] Sororal history of coronary artery disea se 11/04/2014 Last Documented On 0 8:52AM ; [facility] Family medical history : No significant family history 11/03/2014 Last Documented On 0 8:52AM ; [facility] Sister SEVERE HEART ARYTHMIA ? 12/11/2008 Last Documented On 0 8:52AM ; [facility] Review of Systems Includes: Review of Systems from this encounter Systemic: Not feeling poorly (malaise). No edema. Head: No headache. Cardiovascular: Chest pain or discomfort. Pulmonary: No dyspnea and not expressed as feeling short of breath. Neurological: Dizziness. Mental Status Includes: Mental Status from this encounter No Mental Status Recorded Functional Status Includes: Functional Status from this encounter No Functional Status Recorded Physical Exam Includes: Physical Exam from this encounter Allergies Includes: Active Allergies Substance Type Reaction Onset Date Resolved Date Statu s Plaquenil Allergy vision problems 04/23/2010 A ctive Last Documented On 0 1:06PM ; [facility] Imitrex Allergy rapid HR 04/23/2010 Active Last Documented On 0 1:06PM ; [facility] Abilify Allergy 04/23/2010 Active Last Documented On 0 1:06PM ; [facility] Encounters Encounter Provider Location Date Check-In Time Check-Out Time Diagnosis HOSPITAL FOLLOW UP EXAM CHRIS MALAVE D.O. [facility] 020 8:50AM 11:37AM Transient Ischemic Attack (Tia) Without Residual Deficits,Nephro lithiasis,Essen tial Hypertension Insurance Includes: Active Insurance Policies Plan Name Member ID Group # Subscriber Relationship Effect azar Dates 1 - MEDICARE PART A CLAIMS/NGS [id number] KINDRA A RODRIGUEZ Self 12/01/2009 - Unknown 2 [facility] [id number] KINDRA A RODRIGUEZ Self Clinical Notes Includes: Clinical Notes from this encounter No Clinical Notes Recorded
--- OUTSIDE RECORDS SUMMARY | 2025-06-19 15:28 | XMS_ITS ---
Author Organization [facility] Address [address] [id number] Care Team Providers Care Merchandise Clerk Name Role Phone Nolvia Olivares MD, Butch Cross Primary Care Provide r Yessica Worthy MD Unavailable Tonny Yoon MD Unavailable [phone] Ajay Downs MD Unavailable Grey Hand RN Unavailable Kodi Griggs MD Unavailable Active Problems Problem Noted Date Diagnosed Date Morbid obesity 06/10/2025 Migraines 05/13/2025 Mitral valve prolapse 05/13/2025 Renal lesion 05/13/2025 Presence of retained hardware 05/12/2025 Overview (05/12/2025): SJM [id number] Implanted 07/08/2019 Dr Muñiz BPH (benign prostatic hyperplasia) 05/12/2025 Brain TIA 05/12/2025 Glaucoma 05/12/2025 CAD (coronary artery disease) 03/04/2025 Assessment & Plan (03/05/2025 9:22 AM CDT): -cont ASA, statin Assessment & Plan (03/04/2025 6:22 PM CDT): -cont ASA, statin Lumbar radiculopathy 10/31/2024 Spinal stenosis of lumbar region 10/31/2024 Assessment & Plan (03/05/2025 9:22 AM CDT): -cont cymbalta, prn flexeril Assessment & Plan (03/04/2025 6:22 PM CDT): -cont cymbalta, prn flexeril Lumbar disc herniation 10/31/2024 Severe major depression with psychotic features 10/23/2024 Assessment & Plan (06/10/2025 12:59 PM POWER SYSTEM ENGINEER): Suspect his complaints are mainly related to his known dyskinsia effects of potent anti-psychotics s[facility] nash Recommend he speak with psychiatry about coming off Assessment & Plan (03/05/2025 9:22 AM CDT): -cont seroquel, cymbalta Assessment & Plan (03/04/2025 6:22 PM CDT): -cont seroquel, cymbalta Assessment & Plan (10/23/2024 2:10 PM CDT): Chronic stable Well controlled Continue current prescribed medications cymbalta and seroquel at current dose PVC (premature ventricular contraction) 10/17/19 25 Assessment & Plan (04/01/2025 4:16 PM CDT): [...] -s/p successful PVC ablation 03/04 w/ Dr. Aquino -BL groin sites w/o swelling/bleeding -resumed home eliquis, metop, dilt -SR on tele -EP evaluated this am-outpatient follow up scheduled 04/01 -Activity restrictions were reviewed with the patient and provided in written form at discharge Assessment & Plan (03/04/2025 6:22 PM CDT): -s/p PVC ablation 03/04 w/ Dr. Aquino -BL groin sites w/o swelling/bleeding -resume home eliquis, metop, dilt -monitor on tele -EP eval in AM Assessment & Plan (10/23/2024 2:08 PM CDT): Sympomatic Main drivers of his conditions overall-ablation is being considered NSVT (nonsustained ventricular tachycardia) 10/01 Ascending aortic aneurysm 07/11/2024 Assessment & Plan (07/11/2024 1:44 PM POWER SYSTEM ENGINEER): Continue medications as prescribed stable Chronic stable angina 07/11/2024 Assessment & Plan (10/23/2024 2:08 PM CDT): Continue to take Ranexa/imdur Follows with cardiology Assessment & Plan (08/19/2024 6:36 AM POWER SYSTEM ENGINEER): Continue to take Ranexa/imdur Follows with cardiology Assessment & Plan (07/11/2024 1:43 PM POWER SYSTEM ENGINEER): Continue to take Ranexa/imdur Follows with cardiology Lumbar post-laminectomy syndrome 01/22/2024 Spinal stenosis of lumbar re gion with neurogenic claudication 01/08/2024 Assessment & Plan (06/10/2025 12:58 PM POWER SYSTEM ENGINEER): Will get image that was suppose to be done in March, will get back in with NSY for follow up Assessment & Plan (10/23/2024 2:08 PM CDT): Will continue to follow up with NSY Continue roxicodone prn Assessment & Plan (08/19/2024 6:36 AM POWER SYSTEM ENGINEER): Seeing NSY, however several things continue to [...] and establishing or updating healthcare power of mergers and acquisitions attorney document and providing our office with [...] and establishing or updating healthcare power of mergers and acquisitions attorney document and providing our office with [...] and establishing or updating healthcare power of mergers and acquisitions attorney document and providing our office with a copy. PTSD (post-traumatic stress disorder) 08/22/2022 Assessment & Plan (08/19/2024 6:36 AM POWER SYSTEM ENGINEER): Continue medications as prescribed, cymbalta seroquel Assessment & Plan (10/20/2022 1:30 PM CDT): Will contact Saba Dougherty Psychophysiological insomnia 08/22/2022 Assessment & Plan (09/05/2022 10:17 AM POWER SYSTEM ENGINEER): Having issues with sleep Has issues with [...] Plan (10/20/2022 1:31 PM CDT): Sees specialist GERD (gastroesophageal reflux disease) Vasovagal syncope 07/11/2022 Intractable migraine without aura and with status [...] specialists Assessment & Plan (06/22/2023 7:07 PM POWER SYSTEM ENGINEER): His improved sense of well-being following the [...] fibrosis. Assessment & Plan (06/09/2022 4:31 PM POWER SYSTEM ENGINEER): Assessment & Plan (09/16/2021 11:09 AM CDT): Monitor LFTs Cervical spinal stenosis 05/21/2020 Assessment & Plan (10/23/2024 2:12 PM CDT): Following NSY Takes roxicodone Assessment & Plan (07/11/2024 1:43 PM POWER SYSTEM ENGINEER): Seeing PEE, surgery latter this month Spondylosis of cervical joint without myelopathy 05/21/2020 Dyslipidemia 05/21/2020 Poorly-controlled hypertension 05/21/2020 Chronic pain syndrome 05/13/2019 Prediabetes 04/18/2019 Assessment & Plan (09/16/2021 11:06 AM CDT): Continue ozempic, increase dosage Assessment & Plan (07/16/2021 10:52 AM POWER SYSTEM ENGINEER): Continue taking ozempic as prescribed by endocrinology at prescribed dose after awaiting two weeks and no longer symptomatic He expressed understanding Assessment & Plan (12/10/2020 4:06 PM CDT): Recent A1c 5.1. Continue with focus on diet,exercise and weight loss. Mixed hyperlipidemia 12/26/2017 Assessment & Plan (06/10/2025 12:57 PM POWER SYSTEM ENGINEER): Chronic stable Well controlled Continue current prescribed medications lipitor at current dose Assessment & Plan (10/23/2024 2:06 PM CDT): Chronic stable Well controlled Continue current prescribed medications lipitor at current dose Assessment & Plan (10/20/2022 1:30 PM CDT): Chronic stable Well controlled Continue current prescribed medications at current dose Assessment & Plan (06/17/2021 8:03 AM POWER SYSTEM ENGINEER): Continue stsatin Assessment & Plan (05/14/2020 4:21 PM POWER SYSTEM ENGINEER): Low fat low chol diet Continue statin, [...] Ranexa Assessment & Plan (07/11/2024 1:42 PM POWER SYSTEM ENGINEER): Has difficulty controlling this at times Continue HCTZ, metoprolol, Ranexa Assessment & Plan (05/24/2024 10:07 AM POWER SYSTEM ENGINEER): Ongoing. Do not use OTC medications with [...] Continue Amlodipine and Sotalol. Rheumatoid arthritis of [facility] sites with negative rheumatoid factor 12/04/2017 Assessment & Plan (06/10/2025 12:57 PM POWER SYSTEM ENGINEER): Continue leflunomide Assessment & Plan (10/23/2024 2:05 PM CDT): Continue leflunomide Assessment & Plan (08/19/2024 6:35 AM POWER SYSTEM ENGINEER): Continue leflunomide Assessment & Plan (07/11/2024 1:42 PM POWER SYSTEM ENGINEER): Continue leflunomide Assessment & Plan (10/23/2023 1:22 PM CDT): Continue leflunomide Assessment & Plan (10/20/2022 1:29 PM CDT): Chronic stable Well controlled Continue current prescribed medications at current dose Assessment & Plan (08/16/2022 10:10 AM POWER SYSTEM ENGINEER): Continue follow-up with rheum and pain management Assessment & Plan (06/17/2021 9:04 AM POWER SYSTEM ENGINEER): Holding off on medications because the class of drugs he may require have been showing to [employer] again SRINI Will continue to follow-up with Rheum Assessment & Plan (12/04/2017 1:20 PM CDT): Plans to initiate Rituximab Therapy (Rheumatology to write orders including pre-medications). Cjbreonnashawna [place] Paroxysmal atrial fibrillation 12/04/2017 Assessment & Plan (06/10/2025 12:57 PM POWER SYSTEM ENGINEER): Seeing cardiology Assessment & Plan (04/01/2025 4:16 PM CDT): [...] tomorrow Assessment & Plan (08/19/2024 6:35 AM POWER SYSTEM ENGINEER): Chronic stable Well controlled Continue current prescribed medications metoprolol and diltiazem at current dose Assessment & Plan (07/11/2024 1:45 PM POWER SYSTEM ENGINEER): Chronic stable Well controlled Continue current prescribed medications metoprolol and diltiazem at current dose Assessment & Plan (04/25/2024 3:27 PM CDT): Chronic stable Well controlled Continue current prescribed medications metoprolol and diltiazem at current dose Assessment & Plan (02/02/2024 10:14 AM CDT): Intermittent. Currently under evaluation by Cardiology. Patient advised to notify pan shover a recent ED visit and schedule follow-up [...] dose Assessment & Plan (06/17/2021 8:17 AM POWER SYSTEM ENGINEER): S/p abalation Has not had issues with this since then Loop recorder is in, getting it taken out soon Assessment & Plan (12/04/2017 1:26 PM CDT): Continue Sotalol and Warfarin. Monitor INR Anxiety 12/04/2017 Class 3 drug-induced obesity with serious comorbidity and body mass index (BMI) of 40.0 to 44.9 in adult 09/21/2016 Overview (11/25/2016): BMI 40.0-44.9, adult Assessment & Plan (03/05/2025 9:22 AM CDT): Would benefit from outpatient weight loss. Assessment & Plan (03/04/2025 6:22 PM CDT): Would benefit from outpatient weight loss. Assessment & Plan (10/23/2024 2:08 PM CDT): Weight is stable Monitor Related to his seroquel Assessment & Plan (08/19/2024 6:35 AM POWER SYSTEM ENGINEER): Weight is stable Monitor Related to his seroquel Assessment & Plan (07/11/2024 1:45 PM POWER SYSTEM ENGINEER): Weight is stable Monitor Related to his seroquel Assessment & Plan (05/24/2024 10:08 AM POWER SYSTEM ENGINEER): Work on attempts to lose weight about [...] inspire Assessment & Plan (07/11/2024 1:25 PM POWER SYSTEM ENGINEER): 10 years ago was dx, his CPAP got recalled never able to get it back Was told perhaps he could get inspire Current Treatment and Therapy Plans No current plan information found. Other Current Plans Remicade* Plan Start Date:02/16/2024 Plan Provider:Yessica Worthy MD Linked Problems Rheumatoid arthritis of mult iple sites with negative rheumatoid factor (HCC) Treatment Medications inFLIXimab (REMICADE) IVPB i n 500 mL Past Treatment and Therapy Plans Lifetime Dose Tracking * Chemical Lifetime Dose Automatic Entry Manual Entr y Fluoro Time 8.753 minutes 2.053 minutes 6.7 minutes Air kerma at the reference point (Ka,r) 270.069 mGy 7 5.069 mGy 195 mGy DLP 89 mGycm 89 mGycm 0 mGycm DAP 171.21 Gy-cm2 0 Gy-cm2 171.21 Gy-cm2 Resolved Problems Problem Noted Date Diagnosed Date Resolved Date Depression 05/12/2025 06/10/2025 Shortness of breath 11/08/2024 06/10/20 25 NSVT (nonsustained ventricular tachycardia) 10/16/2024 10/23/2024 Dizziness 07/31/2024 08/16/2024 NSVT (nonsustained ventricular tachycardia) 07/30/2024 08/16/2024 Class 3 obesity with alveola r hypoventilation, serious comorbidity, and body mass index (BMI) of 40.0 to 44.9 in adult 01/16/2024 01/16/2024 Lumbar radiculopathy 12/14/2023 025 Papillary thyroid carcinoma 03/16/2023 06/10/2025 Primary osteoarthritis of right knee 03/07/2023 10/23/2024 [...] 10/23/2023 Assessment & Plan (09/05/2022 10:19 AM POWER SYSTEM ENGINEER): No longer having chest pain Feels like this is improved Is following up with cardiology Well controlled type 2 diabetes mellitus 09/01/2022 06/10/2025 Atypical chest pain 08/22/2022 10/21/19 Hypertensive urgency 08/22/2022 023 Status post lumbar [...] medial meniscus of left knee 09/10/2019 09/16/2021 group home prescription opiate use 05/13/2019 08/16/2022 Radiculopathy, lumbosacral region 05/06/2019 10/23/2024 Vitamin B12 deficiency 08/07/201808/16 Intractable migraine with au ra without status migrainosus 05/28/2018 08/16/2022 Insulin resistance 05/01/2018 3 Assessment & Plan (06/17/2021 9:04 AM POWER SYSTEM ENGINEER): Will monitor Hgba1c and sugar levels Assessment & Plan (05/14/2020 4:20 PM POWER SYSTEM ENGINEER): Diet and exercise Check hba1c Assessment & [...] HLD Assessment & Plan (09/05/2022 10:16 AM POWER SYSTEM ENGINEER): Monitor BMI Assessment & Plan (08/16/2022 10:09 AM POWER SYSTEM ENGINEER): Monitor weight Has HTN, HLD, ZAMORA Assessment & Plan (09/16/2021 11:07 AM CDT): Working on weight loss Will increase ozempic Assessment & Plan (07/16/2021 10:53 AM POWER SYSTEM ENGINEER): Continue to monitor weight Assessment & Plan (06/17/2021 9:10 AM POWER SYSTEM ENGINEER): Will try wegovy, should help with weight [...]
--- OUTSIDE RECORDS SUMMARY | 2025-06-19 15:28 | XMS_ITS | Clinical Summary ---
Author Organization [facility] Address [address] [place] [address] Phone Care Team Providers Care Hot Blast Worker Name Role Phone CHRIS MALAVE DO Primary Care Provider [phone] CRANJORGE D.O.CHRIS Unavailable [phone] Reason for Visit and Chief Complaint LAB Problems Includes: Problems addressed during this encounter and other active Problems All Visits Onset Date Resolved Date Provider Condition S tatus Chronic Obstructive Pulmonary Disease 03/18/2019 CHRIS A CRANCER D.O. Active Last Documented On 9 2:50PM ; [facility] Pneumonia 11/19/2018 CHRISDECKERCER D.O. Act azar Last Documented On 9 4:06PM ; [facility] Sleep apnea, unspecified 09/28/2018 CHRISKAN ANCER D.O. Active Last Documented On 9 3:48PM ; [facility] Acute pain due to trauma 02/28/2018 CHRIS Verena CR ANCER D.O. Active Last Documented On 8 4:14PM ; [facility] Cervicalgia 02/28/2018 CHRISDECKERCER D.O. Ac tive Last Documented On 8 2:25PM ; [facility] Familial Hypertriglyceridemia 01/11/2018 CHRIS A CRANCER D.O. Active Last Documented On 8 2:28PM ; [facility] Rheumatoid Arthritis Multiple Sites 01/11/2018 CHRIS A CRANCER D.O. Active Last Documented On 8 2:22PM ; [facility] Hypoxemia 07/13/2017 CHRIS Verena CRANCER D.O. Act azar Last Documented On 8 9:13AM ; [facility] Migraine Headache Without In tractable Migraine Without Status Migrainosus 07/13/2017 CHRISCISNEROS NCER D.O. Active Last Documented On 8 9:13AM ; [facility] Arthralgia - Shoulder Region Left 01/12/2017 LE STER Verena CRANCER D.O. Active Last Documented On 7 3:34PM ; [facility] Low Back Pain 09/12/2016 CHRIS A CRANCER D.O. Active Last Documented On 7 1:37PM ; [facility] Myalgia 04/01/2015 CHRIS A CRANCER D.O. Act azar Last Documented On 5 10:55AM ; [facility] Transient Ischemic Attack (T ia) Without Residual Deficits 06/18/2014 CHRIS A CRANCER D.O. Active Last Documented On 4 5:24PM ; [facility] Celiac Disease 05/02/2014 CHRIS A CRANCER D.O. Active Last Documented On 4 1:38PM ; [facility] Hematuria 09/05/2013 CHRIS A CRANCER D.O. Act azar Last Documented On 4 10:43AM ; [facility] Note: Unchanged Pure Hypercholesterolemia 05/18/2012 CHRIS Albarado C RANCER D.O. Active Last Documented On 4 4:16PM ; [facility] Atrial Fibrillation 05/18/2012 CHRIS A CRANCER D.O. Active Last Documented On 4 4:16PM ; [facility] Depressive Disorder, Nos 05/18/2012 CHRISKAN ANCER D.O. Active Last Documented On 4 4:16PM ; [facility] Plan of Treatment No Plan of Treatment Recorded Assessments Includes: Assessments from this encounter No Assessments Recorded Medical Equipment - Implanted Devices Includes: Current Devices No Medical Equipment Recorded Medications Includes: Medications discussed during this encounter and other current Medications Current Medications (continue as prescribed) Potassium Chloride Torri ER 2 0 MEQ Oral Tablet Extended Release 09/21/2020 Provider: CHRIS MALAVE D.O. Diagnosis: TAKE 1 TABLET BY MOUTH DAILY Last Documented On 09/21/2020 4:02PM By ASHISH SMILEY ; [facility] Fluticasone Propionate 50 MCG/ACT Nasal Suspension 08/13/2020 Provider: CHRIS Rubio D.O. Diagnosis: Oth disrd of Eus tachian tube, unspecified ear 2 sprays each nostril once daily. Last Documented On 08/13/2020 2:29PM By JOSE DHILLON ; [facility] Isosorbide Mononitrate ER 30 MG Oral Tablet Extended Release 24 Hour 08/13/2020 Provider: Diagnosis: 1 qdCardiology Last Documented On 08/13/2020 2:17PM By ASHISH SMILEY ; [facility] Vascepa 1 GM Oral Capsule 08/13/2020 Provider: Diagnosis: 2 po BID Last Documented On 08/13/2020 2:20PM By ASHISH SMILEY ; [facility] Leflunomide 10 MG Oral Tablet 08/13/2020 Provider: Diagnosis: 1/2 tab qd Last Documented On 08/13/2020 2:19PM By ASHISH SMILEY ; [facility] SEROquel 300 MG Oral Tablet 08/13/2020 Provider: Diagnosis: 1 qdPsychiatrist Last Documented On 08/13/2020 2:16PM By ASHISH SMILEY ; [facility] Atorvastatin Calcium 40 MG Oral Tablet 08/13/2020 Pr ovider: Diagnosis: 1 qdCardiology Last Documented On 08/13/2020 2:15PM By ASHISH SMILEY ; [facility] Aspirin Adult Low Dose 81 MG Oral Tablet Delayed Relea se 05/19/2020 Provider: Diagnosis: 1 po qdotc Last Documented On 05/19/2020 9:05AM By ASHISH SMILEY ; [facility] HYDROcodone-Acetaminophen 10-325 MG Oral Tablet 2019 Provider: Diagnosis: 1 every 8 hours. Last Documented On 08/14/2019 1:06PM By Carolina Velazco MA ; [facility] Nitrostat 0.4 MG Sublingual Tablet Sublingual 04/11/2019 Provider: CHRIS Andre Diagnosis: Chest pain, unsp ecified as directed ONE TAB AT ONSET OF PAIN AND MAY REPEAT EVERY 5-10 MIN UNTIL 3 DOSE OR RELIEF, TO ER IF THIRD DOSE NEEDED Last Documented On 04/11/2019 12:30PM By DEBBIE SMILEY ; [facility] Naproxen Sodium ER 500 MG Oral Tablet Extended R elease 24 Hour 03/14/2019 Provider: Diagnosis: 1-2 tabs po daily as needed for BENDER Last Documented On 03/14/2019 1:06PM By BRISEIDA ONEILL LPN ; [facility] Lavts-1-Hemr Eth Est (Dietary) 1 GM Oral Capsule 03/14 Provider: Diagnosis: Take 2 caps in the a.m. and 2 in the p.m. Last Documented On 03/14/2019 1:11PM By BRISEIDA ONEILL LPN ; [facility] Prazosin HCl 2MG Oral Capsule 02/28/2018 Provider: Diagnosis: 2 mg at bedtime, Psychiatrist, Last Documented On 8 3:58PM By SHOLA SMILEY ; [facility] Cyanocobalamin 2500MCG Sublingual Tablet, sublingual 0 11/14/2017 Provider: Diagnosis: sublingual, every morning Last Documented On 8 10:40AM By SHOLA SMILEY ; [facility] Ascorbic Acid 500MG Oral Tablet 11/14/2017 Provider: Diagnosis: Last Documented On 8 10:39AM By SHOLA SMILEY ; [facility] Fenofibrate 160MG Oral Tablet 11/14/2017 Provider: Diagnosis: Last Documented On 8 10:38AM By SHOLA SMILEY ; [facility] AmLODIPine Besylate 10MG Oral Tablet 11/14/2017 Prov ider: Diagnosis: Last Documented On 8 10:36AM By SHOLA SMILEY ; [facility] SEROquel 300MG Oral Tablet 09/28/2017 Provider: Diagnosis: Take 2 at bedtime Last Documented On 8 1:06PM By SHOLA SMILEY ; [facility] Magnesium 250MG Oral Tablet 07/21/2017 Provider: Diagnosis: Take 2 in the am Last Documented On 8 3:43PM By SHOLA SMILEY ; [facility] Vitamin B-2 100MG Oral Tablet 04/21/2017 Provider: Diagnosis: Take 2 in the morning and 2 at bedtime Last Documented On 7 11:45AM By SHOLA SMILEY ; [facility] Leflunomide 20MG Oral Tablet 04/21/2017 Provider: Diagnosis: Take 1 in the morning Last Documented On 7 11:44AM By SHOLA SMILEY ; [facility] Gabapentin 300MG Oral Capsule 04/21/2017 Provider: Diagnosis: Take 1 in the morning and 2 at bedtime Last Documented On 7 11:43AM By SHOLA SMILEY ; [facility] Sotalol HCl 80MG Oral Tablet 04/21/2017 Provider: Diagnosis: Take 1/2 at bedtime Last Documented On 7 11:46AM By SHOLA SMILEY ; [facility] Melatonin 5MG Oral Tablet 04/21/2017 Provider: Diagnosis: Take 2 at bedtime Last Documented On 7 11:48AM By SHOLA SMILEY ; [facility] Vitamin D3 2000UNIT Oral Tablet 04/21/2017 Provider: Diagnosis: Take 2 in the morning Last Documented On 7 11:48AM By SHOLA SMILEY ; [facility] Topamax 100MG Oral Tablet 01/12/2017 Provider: Diagnosis: 1 po BID-Neurology fills this Last Documented On 01/12/2017 3:39PM By ASHISH SMILEY ; [facility] Warfarin Sodium 5 MG Tablet 07/22/2015 Provider: Diagnosis: Last Documented On 07/22/2015 8:47AM By Ximena SMILEY ; [facility] Medications Administered Includes: Administered Medications from this encounter No Administered Medications Recorded Results Includes: Results discussed during this encounter No Results Recorded For Specified Dates History of Present Illness Includes: History of Present Illness from this encounter No History of Present Illness Recorded Social History Description Last Updated Smoking status : Never smoker 03/14/2019 Last Documented On 0 10:18AM ; [facility] Currently 01/23/2014 Last Documented On 0 10:18AM ; [facility] No consumption of alcohol 01/23/2014 Last Documented On 0 10:18AM ; [facility] No tobacco use 01/23/2014 Last Documented On 0 10:18AM ; [facility] Not a current smoker 01/23/2014 Last Documented On 0 10:18AM ; [facility] Not using alcohol 01/23/2014 Last Documented On 0 10:18AM ; [facility] Not using drugs 01/23/2014 Last Documented On 0 10:18AM ; [facility] Medical History Includes: Medical History addressed during this encounter Description Last Updated Pt does not get blood pressure checked a t other facility 01/20/2010 Last Documented On 0 10:18AM ; [facility] AFIB,RA,DEPRESSION,ELEVATED LIVER ENZYME S 09/17/2009 Last Documented On 0 10:18AM ; [facility] History of coronary artery disease 09/17 Last Documented On 0 10:18AM ; [facility] History of hyperlipidemia 09/17/2009 Last Documented On 0 10:18AM ; [facility] Exposure to dust 12/11/2008 Last Documented On 0 10:18AM ; [facility] Surgery BACK SURGERY 12/11/2008 Last Documented On 0 10:18AM ; [facility] Family History Includes: Family History addressed during this encounter Description Last Updated Family history reviewed - unchanged sin e last visit 09/18/2015 Last Documented On 0 10:18AM ; [facility] Sororal history of coronary artery disea se 11/04/2014 Last Documented On 0 10:18AM ; [facility] Family medical history : No significant family history 11/03/2014 Last Documented On 0 10:18AM ; [facility] Sister SEVERE HEART ARYTHMIA ? 12/11/2008 Last Documented On 0 10:18AM ; [facility] Review of Systems Includes: Review of Systems from this encounter No Review of Systems Recorded Mental Status Includes: Mental Status from this encounter No Mental Status Recorded Functional Status Includes: Functional Status from this encounter No Functional Status Recorded Physical Exam Includes: Physical Exam from this encounter No Physical Exam Recorded Allergies Includes: Active Allergies Substance Type Reaction Onset Date Resolved Date Statu s Plaquenil Allergy vision problems 04/23/2010 A ctive Last Documented On 0 1:06PM ; [facility] Imitrex Allergy rapid HR 04/23/2010 Active Last Documented On 0 1:06PM ; [facility] Abilify Allergy 04/23/2010 Active Last Documented On 0 1:06PM ; [facility] Encounters Encounter Provider Location Date Check-In Time Check-Out Time Diagnosis LAB CHRIS MALAVE D.O. 11/11/2019 10:18AM 11:59PM Insurance Includes: Active Insurance Policies Plan Name Member ID Group # Subscriber Relationship Effect azar Dates 1 - MEDICARE PART A CLAIMS/NGS [id number] KINDRA A RODRIGUEZ Self 12/01/2009 - Unknown 2 - [facility] [id number] KINDRA A RODRIGUEZ Self Clinical Notes Includes: Clinical Notes from this encounter No Clinical Notes Recorded
--- OUTSIDE RECORDS SUMMARY | 2025-06-19 15:28 | XMS_ITS | Encounter Summary ---
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 Gender Identity Not on file Sexual Orientation [...] COVID: Suspected 06/14/2021 06/14/2021 06/14/2021 7:24 PM 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 COVID: Suspected 01/16/2022 01/16/2022 01/16/2022 7:20 PM CDT COVID: Suspected 08/22/2022 08/22/2022 08/22/2022 9:42 AM 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 COVID: Suspected 08/04/2024 08/04/2024 08/04/2024 3:41 PM 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 COVID: Suspected 08/05/2024 08/05/2024 08/05/2024 1:23 PM 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 Rhino/Enterovirus 11/08/2024 11/08/2024 11/15/2024 3:05 AM CDT documented as of this encounter Care Teams Proofer Relationship Specialty Start Date End Date Heydi Hood MD [address] [address] PCP - General Family Medicine 03/03/21 06/13/21 Heydi Hood MD [address] [place] [id number] PCP - General 06/14/21 06/16/21 Butch De Souza Jr., MD [address] [place] [id number] PCP - General Internal Medicine 06/17/21 Swathi Golden RN Registered Nurse 04/15/19 01/18/23 Sheri Mac MD [address] [address] Endocrinology 06/17/21 12/09/24 Yessica Worthy MD [address] [facility] [address] [place] [address] Referring Physician Rheumatology 06/17/21 [place] [address] [place] [address] Consulting Physician Gastroenterology 06/17/21 Cortney García RN [address] [place] [address] [facility] [address] [place] [address] Feeder Worker Power Unit Operator 11/09/23 05/30/24 Ajay Downs MD [address] [place] [address] [facility] [address] [place] [address] Consulting Physician Cardiovascular Disease 07/09/24 Grey Hand RN [address] [place] [address] [facility] [address] [place] [address] Feeder Worker Power Unit Operator 08/12/24 [place] [address] [facility] [address] [place] [address] Consulting Physician Pulmonary Disease 12/10/24 documented as of this encounter
--- OUTSIDE RECORDS SUMMARY | 2025-06-19 15:28 | XMS_ITS | Clinical Summary ---
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 Ethchlorvynol Unknown 10/20/2023 Hydrocodone Agitation Low 12/10/2024 Hydroxychloroquine Other (See comments) Low 018 damaged eye muscles Methotrexate Nausea Only,Other (See comments) Medium 06/04/2014 Liver enzymes elevated Oxycodone Shortness of breath High 05/13/2025 Sumatriptan Nausea Only,Other (See comments) Medium 06/04/2014 Heart attack symptoms Zolpidem Tartrate Nausea And Vomiting,Mental status changes,Hallucination s Medium 06/04/2014 Medications apixaban (ELIQUIS) 5 mg tabletIndication s:VTE Prophylaxis,PVC' s Take 1 tablet (5 mg total) by mouth 2 (two) times a day 02/02/20 23 Active isosorbide mononitrate ER (IMDUR) 60 mg 24 hr tabletIndication s:prevention of anginal pain in coronary artery disease Take 1 tablet (60 mg total) by mouth nightly 01/03/20 24 Active nitroglycerin (NITROSTAT) 0.4 mg SL tabletIndication s:acute episode of anginal pain,acute myocardial infarction Place 1 tablet (0.4 mg total) under the tongue every 5 (five) minutes as needed for chest pain Active atorvastatin (LIPITOR) 40 mg tablet Take 1 tablet (40 mg total) by mouth daily 30 tablet 11 08/09/19 25 026 Active cloNIDine (CATAPRES) 0.1 mg tabletIndication s:hypertension Take 1 tablet (0.1 mg total) by mouth 3 (three) times a day as needed for high blood pressure Take 1 time for BP >170/90 10/15/19 25 Active atogepant (Qulipta) 60 mg tabletIndication s:Migraine Prevention Take 60 mg by mouth as needed (mir) Active polyethylene glycol (MIRALAX) 17 gram/dose bulk powderIndication s:constipation Take 17 g by mouth nightly Active ciclopirox 1 % shampooIndicatio ns:Dandruff Apply 1 Application topically 2 (two) times a week SHAMPOO SCALP 1-2 TIMES A WEEK. APPLY FOR 3-5 MINUTES THEN WASH OFF. 11/02/19 25 Active ketoconazole (NIZORAL) 2 % creamIndications :rash/inflammati on Apply 1 Application topically 2 (two) times a day as needed for itching, irritation or rash 11/05/19 25 Active QUEtiapine (SEROquel) 300 mg tablet Take 1 tablet (300 mg total) by mouth nightly 30 tablet 11/15/19 25 Active Additional Information Patient not taking.Informant: Self, Reported on 06/12/2025 potassium chloride ER 10 mEq CR tabletIndication s:pt states only takes with food otherwise can't not take Take 2 tablet/capsule (20 mEq total) by mouth daily with breakfast 180 tablet 1 12/12/19 25 Active hydroCHLOROthiaz jeronimo (HYDRODIURIL) 25 mg tabletIndication s:pt states is going to pharmacy today to start Take 1 tablet (25 mg total) by mouth daily 90 tablet 1 12/12/19 25 Active cyclobenzaprine (FLEXERIL) 10 mg tablet Take 1 tablet (10 mg total) by mouth 3 (three) times a day as needed for muscle spasms 90 tablet 1 12/25/19 25 Active senna-docusate (PERICOLACE) 8.6-50 mgIndications:co nstipation Take 1 tablet by mouth daily 30 tablet 12/25/19 25 Active metoprolol XL (TOPROL-XL) 50 mg extended release tabletIndication s:Paroxysmal atrial fibrillation (HCC),PVC's (premature ventricular contractions) TAKE 1 TABLET(50 MG) BY MOUTH TWICE DAILY 60 tablet 01/10/[address] (CYMBALTA) 60 mg capsuleIndicatio ns:Anxiety with Depression,PTSD Take 1 capsule (60 mg total) by mouth nightly 02/25/20 25 Active naloxone (NARCAN) 4 mg/actuation spray,non-aeroso l Administer 1 spray into affected nostril(s) as needed for opioid reversal or respiratory depression Call 911. Administer a single spray in one nostril. Repeat every 3 minutes as needed if no or minimal response. 2 each 03/21/20 25 Active flecainide (TAMBOCOR) 50 mg tablet Take 1 tablet (50 mg total) by mouth 2 (two) times a day 60 tablet 04/01/20 25 026 Active spironolactone (ALDACTONE) 50 mg tablet Take 1 tablet (50 mg total) by mouth every morning 05/04/20 25 Active losartan (COZAAR) 100 mg tablet Take 1 tablet (100 mg total) by mouth daily 05/04/20 25 Active aspirin 81 mg chewable tabletIndication s:Paroxysmal atrial fibrillation (HCC),Spinal stenosis of lumbar region with neurogenic claudication Take 1 tablet (81 mg total) by mouth daily 90 tablet 3 06/10/20 25 026 Active MAGNESIUM OXIDE ORALIndications: hypomagnesemia Take 2 tablets by mouth nightly Pt is out of med, waiting for insurance/pharm acy to refill 07/05/19 24 025 Discontin ued(Thera py completed ) hydrOXYzine (ATARAX) 50 mg tabletIndication s:anxiety Take 1 tablet (50 mg total) by mouth nightly 11/26/19 24 025 Discontin ued(Thera py completed ) albuterol HFA (PROVENTIL HFA,VENTOLIN HFA,PROAIR HFA) 90 mcg/actuation inhaler Inhale 2 puffs every 6 (six) hours as needed for wheezing 3 each 4 06/04/20 24 025 Discontin ued(Thera py completed ) diltiaZEM CD (CARDIZEM CD) 360 mg 24 hr capsuleIndicatio ns:Paroxysmal atrial fibrillation (HCC),PVC's (premature ventricular contractions) Take 1 capsule (360 mg total) by mouth daily 30 capsule 10/24/19 25 025 Discontin ued(Thera py completed ) fluticasone propionate (FLONASE) 50 mcg/actuation nasal sprayIndications :Allergic Rhinitis,did not bring bottle 12/10/24 Administer 1 spray into each nostril daily as needed for rhinitis or allergies 025 Discontin ued(Thera py completed ) linaCLOtide (LINZESS) 145 mcg capsule Take 1 capsule (145 mcg total) by mouth daily 90 capsule 1 11/20/19 25 025 Discontin ued(Thera py completed ) clonazePAM (KlonoPIN) 0.5 mg tabletIndication s:anxiety Take 1 tablet (0.5 mg total) by mouth 2 (two) times a day as needed for anxiety 025 Discontin ued(Thera py completed ) cyanocobalamin, vitamin B-12, (VITAMIN B-12 ORAL)Indications :supplement Take 2 tablets by mouth every morning 025 Discontin ued(Thera py completed ) fenofibrate (TRIGLIDE) 160 mg tablet 03/13/20 025 Discontin ued(Thera py completed ) tirzepatide, weight loss, (Zepbound) 2.5 mg/0.5 mL pen injector Inject 0.5 mL (2.5 mg total) under the skin once a week 2 mL 05/13/20 25 025 Discontin ued(Thera py completed ) suvorexant (Belsomra) 20 mg tabletIndication s:Insomnia Take 1 tablet (20 mg total) by mouth as needed (insomnia) 30 tablet 1 05/13/20 25 025 Discontin ued(Thera py completed ) Active Problems Problem Noted Date Diagnosed Date Morbid obesity 06/10/2025 Migraines 05/13/2025 Mitral valve prolapse 05/13/2025 Renal lesion 05/13/2025 Presence of retained hardware 05/12/2025 Overview (05/12/2025): ANDREA [id number] Implanted 07/08/2019 Dr Muñiz BPH (benign prostatic [...] 10/23/2024 Assessment & Plan (06/10/2025 12:59 PM RUG RENOVATOR): Suspect his complaints are mainly related to his known dyskinsia effects of potent anti-psychotics sinai nash Recommend he speak with psychiatry about coming off Assessment & Plan (03/05/2025 9:22 AM CDT): -cont seroquel, cymbalta Assessment & Plan (03/04/2025 6:22 PM CDT): -cont seroquebhargav, cymbalta Assessment & Plan (10/23/2024 2:10 PM [...] successful PVC ablation 03/04 w/ Dr. Miles waters sites w/o swelling/bleeding -resumed home eliquis, metop, [...] 07/11/2024 Assessment & Plan (07/11/2024 1:44 PM RUG RENOVATOR): Continue medications as prescribed stable Chronic stable angina 07/11/2024 Assessment & Plan (10/23/2024 2:08 PM CDT): Continue to take Ranexa/imdur Follows with cardiology Assessment & Plan (08/19/2024 6:36 AM RUG RENOVATOR): Continue to take Ranexa/imdur Follows with cardiology Assessment & Plan (07/11/2024 1:43 PM RUG RENOVATOR): Continue to take Ranexa/imdur Follows with cardiology Lumbar post-laminectomy syndrome 01/22/2024 Spinal stenosis of lumbar re gion with neurogenic claudication 01/08/2024 Assessment & Plan (06/10/2025 12:58 PM RUG RENOVATOR): Will get image that was suppose to be done in March, will get back in with NSY for follow up Assessment & Plan (10/23/2024 2:08 PM CDT): Will continue to follow up with NSY Continue roxicodone prn Assessment & Plan (08/19/2024 6:36 AM RUG RENOVATOR): Seeing NSY, however several things continue to [...] and establishing or updating healthcare power of claim attorney document and providing our office with [...] and establishing or updating healthcare power of claim attorney document and providing our office with [...] and establishing or updating healthcare power of claim attorney document and providing our office with a copy. PTSD (post-traumatic stress disorder) 08/22/2022 Assessment & Plan (08/19/2024 6:36 AM RUG RENOVATOR): Continue medications as prescribed, cymbalta seroquel Assessment & Plan (10/20/2022 1:30 PM CDT): Will contact Saba Dougherty Psychophysiological insomnia 08/22/2022 Assessment & Plan (09/05/2022 10:17 AM RUG RENOVATOR): Having issues with sleep Has issues with [...] specialists Assessment & Plan (06/22/2023 7:07 PM RUG RENOVATOR): His improved sense of well-being following the [...] fibrosis. Assessment & Plan (06/09/2022 4:31 PM RUG RENOVATOR): Assessment & Plan (09/16/2021 11:09 AM CDT): Monitor LFTs Cervical spinal stenosis 05/21/2020 Assessment & Plan (10/23/2024 2:12 PM CDT): Following NSY Takes roxicodone Assessment & Plan (07/11/2024 1:43 PM RUG RENOVATOR): Seeing PEE, surgery latter this month Spondylosis of cervical joint without myelopathy 05/21/2020 Dyslipidemia 05/21/2020 Poorly-controlled hypertension 05/21/2020 Chronic pain syndrome 05/13/2019 Prediabetes 04/18/2019 Assessment & Plan (09/16/2021 11:06 AM CDT): Continue ozempic, increase dosage Assessment & Plan (07/16/2021 10:52 AM RUG RENOVATOR): Continue taking ozempic as prescribed by endocrinology at prescribed dose after awaiting two weeks and no longer symptomatic He expressed understanding Assessment & Plan (12/10/2020 4:06 PM CDT): Recent A1c 5.1. Continue with focus on diet,exercise and weight loss. Mixed hyperlipidemia 12/26/2017 Assessment & Plan (06/10/2025 12:57 PM RUG RENOVATOR): Chronic stable Well controlled Continue current prescribed medications lipitor at current dose Assessment & Plan (10/23/2024 2:06 PM CDT): Chronic stable Well controlled Continue current prescribed medications lipitor at current dose Assessment & Plan (10/20/2022 1:30 PM CDT): Chronic stable Well controlled Continue current prescribed medications at current dose Assessment & Plan (06/17/2021 8:03 AM RUG RENOVATOR): Continue stsatin Assessment & Plan (05/14/2020 4:21 PM RUG RENOVATOR): Low fat low chol diet Continue statin, [...] Ranexa Assessment & Plan (07/11/2024 1:42 PM RUG RENOVATOR): Has difficulty controlling this at times Continue HCTZ, metoprolol, Ranexa Assessment & Plan (05/24/2024 10:07 AM RUG RENOVATOR): Ongoing. Do not use OTC medications with [...] Continue Amlodipine and Sotalol. Rheumatoid arthritis of [facility] with negative rheumatoid factor 12/04/2017 Assessment & Plan (06/10/2025 12:57 PM RUG RENOVATOR): Continue leflunomide Assessment & Plan (10/23/2024 2:05 PM CDT): Continue leflunomide Assessment & Plan (08/19/2024 6:35 AM RUG RENOVATOR): Continue leflunomide Assessment & Plan (07/11/2024 1:42 PM RUG RENOVATOR): Continue leflunomide Assessment & Plan (10/23/2023 1:22 PM CDT): Continue leflunomide Assessment & Plan (10/20/2022 1:29 PM CDT): Chronic stable Well controlled Continue current prescribed medications at current dose Assessment & Plan (08/16/2022 10:10 AM RUG RENOVATOR): Continue follow-up with rheum and pain management Assessment & Plan (06/17/2021 9:04 AM RUG RENOVATOR): Holding off on medications because the class of drugs he may require have been showing to lower peoples protection again COVID Will continue to follow-up with Rheum Assessment & Plan (12/04/2017 1:20 PM CDT): Plans to initiate Rituximab Therapy (Rheumatology to write orders including pre-medications). David Florence Paroxysmal atrial fibrillation 12/04/2017 Assessment & Plan (06/10/2025 12:57 PM RUG RENOVATOR): Seeing cardiology Assessment & Plan (04/01/2025 4:16 [...] tomorrow Assessment & Plan (08/19/2024 6:35 AM RUG RENOVATOR): Chronic stable Well controlled Continue current prescribed medications metoprolol and diltiazem at current dose Assessment & Plan (07/11/2024 1:45 PM RUG RENOVATOR): Chronic stable Well controlled Continue current prescribed medications metoprolol and diltiazem at current dose Assessment & Plan (04/25/2024 3:27 PM CDT): Chronic stable Well controlled Continue current prescribed medications metoprolol and diltiazem at current dose Assessment & Plan (02/02/2024 10:14 AM CDT): Intermittent. Currently under evaluation by Cardiology. Patient advised to notify organic gardening teacher a recent ED visit and schedule follow-up [...] dose Assessment & Plan (06/17/2021 8:17 AM RUG RENOVATOR): S/p abalation Has not had issues with [...] seroquel Assessment & Plan (08/19/2024 6:35 AM RUG RENOVATOR): Weight is stable Monitor Related to his seroquel Assessment & Plan (07/11/2024 1:45 PM RUG RENOVATOR): Weight is stable Monitor Related to his seroquel Assessment & Plan (05/24/2024 10:08 AM RUG RENOVATOR): Work on attempts to lose weight about [...] inspire Assessment & Plan (07/11/2024 1:25 PM RUG RENOVATOR): 10 years ago was dx, his CPAP [...] 10/23/2023 Assessment & Plan (09/05/2022 10:19 AM RUG RENOVATOR): No longer having chest pain Feels like [...] 6 weeks with AP/Flexion/Extension Lumbar spine films. [facility] 09/16/2021 Assessment & Plan (09/16/2021 [...] medial meniscus of left knee 09/10/2019 09/16/2021 halfway prescription opiate use 05/13/2019 08/16/2022 Radiculopathy, lumbosacral region 05/06/2019 10/23/2024 Vitamin B12 deficiency 08/07/201808/16 Intractable migraine with au ra without status migrainosus 05/28/2018 08/16/2022 Insulin resistance 05/01/2018 3 Assessment & Plan (06/17/2021 9:04 AM RUG RENOVATOR): Will monitor Hgba1c and sugar levels Assessment & Plan (05/14/2020 4:20 PM RUG RENOVATOR): Diet and exercise Check hba1c Assessment & [...] HLD Assessment & Plan (09/05/2022 10:16 AM RUG RENOVATOR): Monitor BMI Assessment & Plan (08/16/2022 10:09 AM RUG RENOVATOR): Monitor weight Has HTN, HLD, ZAMORA Assessment & Plan (09/16/2021 11:07 AM CDT): Working on weight loss Will increase ozempic Assessment & Plan (07/16/2021 10:53 AM RUG RENOVATOR): Continue to monitor weight Assessment & Plan (06/17/2021 9:10 AM RUG RENOVATOR): Will try wegovy, should help with weight [...] Encounters Date Type Department Care Team Description 06/19/2025 Nurse Triage [facility] [address] [place] [phone] Tammie Lei RN 06/10/2025 12:00 PM RUG RENOVATOR Lab [facility] [address] [place] [phone] Lumbar radiculopathy; 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); Paroxysmal atrial fibrillation (HCC); Rheumatoid arthritis of multiple sites with negative rheumatoid factor (HCC); Mixed hyperlipidemia; Weight gain; Assessment of effects of psychotropic drug in patient at risk for metabolic syndrome 06/10/2025 11:33 AM RUG RENOVATOR - 06/10/2025 11:59 PM RUG RENOVATOR Hospital Encounter [facility] 1 DIAG IMG [address] [place] [phone] Lumbar radiculopathy Discharge Disposition: Discharge to home or self care 06/10/2025 11:00 AM RUG RENOVATOR Office Visit [facility] [address] [place] [phone] Butch De Souza Jr., MD Lumbar radiculopathy (Primary Dx); 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); Paroxysmal atrial fibrillation (HCC); Rheumatoid arthritis of multiple sites with negative rheumatoid factor (HCC); Mixed hyperlipidemia; Weight gain; Assessment of effects of psychotropic drug in patient at risk for metabolic syndrome; Spinal stenosis of lumbar region with neurogenic claudication 06/09/2025 Nurse Triage [facility] [address] [place] [phone] Butch De Souza Jr., MD 06/04/2025 Remote Device Check [facility] [address] [place] [phone] Estuardo Aquino MD 05/13/2025 2:00 PM RUG RENOVATOR Office Visit [facility] Medical [facility] [address] [place] [phone] Yenni Do NP PVC (premature ventricular contraction) (Primary Dx); Rheumatoid arthritis of multiple sites with negative rheumatoid factor (HCC); Primary hypertension; Chronic pain syndrome; Paroxysmal atrial fibrillation (HCC); LJ on CPAP; Morbid obesity with BMI of 40.0-44.9, adult (HCC); Prediabetes; Anxiety; Psychophysiological insomnia 05/13/2025 9:15 AM RUG RENOVATOR Office Visit [facility] [address] [place] [phone] Madan Foster MD PVC's (premature ventricular contractions) (Primary Dx) 05/13/2025 Documentation [facility] [address] [place] [address] [place] [address] Estuardo Aquino MD 05/13/2025 Telephone [facility] [address] [place] [address] [place] [address] Estuardo Aquino MD 05/08/2025 Telephone [facility] [address] [place] [phone] Butch De Souza Jr., MD CECILIO Questions 05/08/2025 Telephone [facility] [address] [place] [address] [place] [address] Estuardo Aquino MD 05/05/2025 Orders Only [facility] Medical [facility] [address] [address] [address] [place] [address] Madan Foster MD 05/02/2025 Orders Only [facility] Health Information Management [address] [place] [address] Zahraa Melendez NP 05/02/2025 Telephone [facility] [address] [place] [address] [place] [address] Estuardo Aquino MD 04/17/2025 Results Follow-Up [facility] [address] [place] [address] [place] [address] [place] [address] Hyacinth Burgess NP ECG 12 lead 04/16/2025 10:10 AM CDT Procedure visit [facility] [address] [place] [address] [place] [address] Palpitations (Primary Dx) 04/10/2025 9:30 AM CDT Office Visit [facility] [address] [place] [phone] Genesis Aguirre MD Obstructive sleep apnea syndrome (Primary Dx); Hypersomnia with sleep apnea; Morbid obesity with BMI of 40.0-44.9, adult (HCC) 04/01/2025 3:00 PM CDT Office Visit [facility] [address] [place] [address] [place] [address] Hyacinth Burgess NP PVC (premature ventricular contraction) (Primary Dx); Encounter for monitoring flecainide therapy; Paroxysmal atrial fibrillation (HCC) 04/01/2025 2:30 PM CDT Ancillary Procedure [facility] [address] [place] [address] [address] [place] [address] Encounter for loop recorder check; NSVT (nonsustained ventricular tachycardia) (HCC) 03/21/2025 1:00 PM CDT Office Visit [facility] [address] [place] [phone] Yenni oD NP Primary hypertension (Primary Dx); NSVT (nonsustained ventricular tachycardia) (HCC); Rheumatoid arthritis of multiple sites with negative rheumatoid factor (HCC); Chronic, continuous use of opioids; Psychophysiological insomnia; Chronic pain syndrome; Weight gain 03/20/2025 Nurse Triage [facility] [address] [place] [phone] Butch De Souza Jr., MD from Last 3 Months Immunizations Immunization Administration Dates Next Due DTaP 05/16/2020,02/23/2015 Influenza, Quadrivalent, Rec ombinant, Egg Free, Preservative Free, Intramuscular 05/15/2020 Influenza, Quadrivalent, Spl it, Preservative Free, Intramuscular 05/15/2020,04/11/2019 Influenza, Trivalent, High D ose, Split, Preservative Free, Intramuscular 04/30/2018 Influenza, Trivalent, IM (MDV) 04/11/2019,2016 Influenza, Unspecified 06/10/2025(Deferr ed: Patient Refused),05/13/2025(Deferred: Patient Refused),05/13/2025(Deferred: Patient Refused),08/16/2024(Deferred: Patient Refused),05/03/2024(Deferred: Patient Refused),05/03/2024(Deferred: Patient Refused),04/25/2024(Deferred: Patient Refused),05/03/2023(Deferred: Patient [...] TACHYCARDIA (VT) INCLUDES 3D MAPPING (WHEN USED) [id number]; Surgeon: Estuardo Aquino MD; Location: [facility]; Service: Cardiovascular; Laterality: N/A; Medical devices from this surgery are in the Medical Devices section. CARDIAC ELECTROPHYSIOLOGY PROCEDURE 03/04/2025 N/A Procedure: LEFT HEART CATHETERIZATION TRANSEPTAL PUNCTURE (+) [id number]; Surgeon: Estuardo Aquino MD; Location: [facility]; Service: Cardiovascular; Laterality: N/A; Medical devices from this surgery are in the Medical Devices section. JOINT REPLACEMENT CATARACT EXTRACTION Medical History Medical History Date Comments Hypertension [...] arthritis (HCC) CAD (coronary artery disease) 03/04/2025 Autoimmune disease Cataract Kidney stone Family History * Patient is adopted Medical History Relation Name Comments Seizures Brother No Known Problems Father Arthritis Mother Marly Breast cancer Mother Marly Cancer Mother Marly Vision loss Mother Marly Migraines Sister Relation Name Status Comments Brother Father Mother Marly Alive Sister Social History Tobacco Use Types Packs/Day Years Used Date Smoking Tobacco: Never Passive Smoke Exposure: Never Smokeless Tobacco: Never Tobacco Cessation:Counseling Given: Not Answered Alcohol Use Standard Drinks/Week Comments Never 0 (1 standard drink = 0.6 oz pur e alcohol) [facility] Utilities Answer Date Recorded In the past 12 months has th e [employer], gas, oil, or water [employer] threatened to shut off services in your [...] week 11/11/2024 How often do you attend [facility] ch or synagogue services? Never 11/11/2024 Do you belong to any clubs o r organizations such as mandaen groups, unions, fraternal or athletic groups, or [...] points, staff should administer the PHQ-9) 0 06/10/2025 Hunger Vital Sign Answer Date Recorded Within [...] place to sleep or slept in a penitentiary (including now)? No 11/18/2023 PHQ-9 Answer Date [...] any time in the past 12 m [facility], were you homeless or living in a penitentiary (including now)? No 11/11/2024 AUDIT-C Answer Date Recorded Q1: How often do you have a drink containing alcohol? Never 06/10/2025 Q2: How many drinks containi ng alcohol do you have on a typical day when you are drinking? Patient does not drink Q3: How often do you have si x or more drinks on one occasion? Never 06/10/2025 Personal Safety Answer Date Recorded Have you ever been in or are you currently in a harmful physical or emotional relationship or is someone making you feel afraid or unsafe? Denies 03/04/2025 Sex and Gender Information Value Date Recorded Sex Assigned at Not on file Legal Sex Male 11:58 PM RUG RENOVATOR Gender Identity Not on file Sexual Orientation Not on file Last Filed Vital Signs Vital Sign Reading Time Taken Comments Blood Pressure 114/66 06/10/2025 10:42 AM RUG RENOVATOR Pulse 69 06/10/2025 10:42 AM RUG RENOVATOR Temperature 36 C (96.8 F) 06/10/2025 10:42 AM RUG RENOVATOR Respiratory Rate 18 06/10/2025 10:42 AM RUG RENOVATOR Oxygen Saturation 95% 06/10/2025 10:42 AM RUG RENOVATOR Inhaled Oxygen Concentration - - Weight 162.8 kg (359 lb) 06/10/2025 10:42 AM RUG RENOVATOR Height 190.5 cm (6' 3) 06/10/2025 10:42 AM RUG RENOVATOR Body Mass Index 44.87 06/10/2025 10:42 AM RUG RENOVATOR Plan of Treatment Health Maintenance Due Date Last Done Comments Well Visit 65+ 10/23/2025 10/23/2024, 10/02, 10/20/2022, Additional history exists Zoster Vaccine (1 of 2) 10/23/2025 Post poned from 1977 (Insurance / Financial) Influenza Vaccine (#1) 2025 , 05/15/2020, 05/15/2020, Additional history exists Postponed from 03/03/2025 (Patient declined, but will receive in the future) Fall Risk Assessment 03/05/2026 03/05/2025, 10/23/2024, 10/23/2023, Additional history exists Depression Screening 06/10/2026 06/10/2025, 03/21/2025, 11/19/2024, Additional history exists Prostate Cancer Screening-PSA 10/23/2026 [...] of instructions. Medical Devices Implanted Type Area Dancer Or Choreographer Device Identifier Shelf Expiration Date Model / Serial / Lot [employer] Vascade Mvp 6-12fr Venous Closure [id number] - [id number] - [id number] Implanted:Qty: 1 on 03/04/2025 by Genaro Joseph MD at [facility] Collagen Left: Femoral Vein [employer] 11/25/2026 800-612 C-10U / [id number] / [id number] [employer] Vascade Mvp 6-12fr Venous Closure [id number] - [id number] - [id number] Implanted:Qty: 1 on 03/04/2025 by Genaro Joseph MD at [facility] Collagen Left: Femoral Vein [employer] 11/25/2026 800-612 C-10U / [id number] / [id number] [employer] Vascade Mvp 6-12fr Venous Closure [id number] - [id number] - [id number] Implanted:Qty: 1 on 03/04/2025 by Genaro Joseph MD at [facility] Collagen Left: Femoral Vein [employer] 11/25/2026 800-612 C-10U / [id number] / [id number] [employer] Vascade Mvp 6-12fr Venous Closure [id number] - [id number] - [id number] Implanted:Qty: 1 on 03/04/2025 by Genaro Joseph MD at [facility] Collagen Left: Femoral Vein [employer] 11/25/2026 800-612 C-10U / [id number] / [id number] Implantable Loop Recorder Implantable Loop Recorder Chest Wall Loop Recorder Chest Wall [employer] [id number] / [id number] / Description: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) Paroxysmal atrial fibrillation (HCC) Rheumatoid arthritis of multiple sites with negative rheumatoid factor (HCC) Mixed hyperlipidemia Weight gain DIFFERENTIAL AUTO Routine 06/10/2025 11:56 AM RUG RENOVATOR Lumbar radiculopathy 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) Paroxysmal atrial fibrillation (HCC) Rheumatoid arthritis of multiple sites with negative rheumatoid factor (HCC) Mixed hyperlipidemia Weight gain HEMOGLOBIN A1C Routine 06/10/2025 11:56 AM RUG RENOVATOR Lumbar radiculopathy 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) Paroxysmal atrial fibrillation (HCC) Rheumatoid arthritis of multiple sites with negative rheumatoid factor (HCC) Mixed hyperlipidemia Weight gain Assessment of effects of psychotropic drug in patient at risk for metabolic syndrome COMPREHENSIVE METABOLIC PANEL Routine 06/10/2025 11:56 AM RUG RENOVATOR Lumbar radiculopathy 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) Paroxysmal atrial fibrillation (HCC) Rheumatoid arthritis of multiple sites with negative rheumatoid factor (HCC) Mixed hyperlipidemia Weight gain CBC WITH AUTO DIFFERENTIAL Routine 06/10/2025 11:56 AM RUG RENOVATOR Lumbar radiculopathy 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) Paroxysmal atrial fibrillation (HCC) Rheumatoid arthritis of multiple sites with negative rheumatoid factor (HCC) Mixed hyperlipidemia Weight gain XR SPINE LUMBAR COMPLETE 4 OR MORE VIEWS Schedule Routine, Read Routine (OP Routine) 06/10/2025 11:44 AM RUG RENOVATOR Lumbar radiculopathy ALBUMIN CREATININE RATIO, URINE Routine 06/10/2025 10:17 AM RUG RENOVATOR Lumbar radiculopathy 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) Paroxysmal atrial fibrillation (HCC) Rheumatoid arthritis of multiple sites with negative rheumatoid factor (HCC) Mixed hyperlipidemia Weight gain DEVICE CHECK - REMOTE Routine 06/04/2025 CARDIOLOGY DOCUMENT SCAN Routine 05/04/2025 12:41 PM RUG RENOVATOR CARDIOLOGY DOCUMENT SCAN Routine 05/03/2025 12:30 PM CDT CARDIOLOGY DOCUMENT SCAN 05/02/2025 ECG 12-LEAD Routine 04/16/2025 10:27 AM CDT Palpitations DEVICE CHECK - IN OFFICE Routine 04/01/2025 1:33 PM CDT Encounter for loop recorder check NSVT (nonsustained ventricular tachycardia) (HCC) PSA SCREEN Routine 10/23/2024 2:14 PM CDT Encounter for Medicare annual wellness exam HEPATITIS PANEL, ACUTE Routine 07/19/2024 9:26 AM RUG RENOVATOR Hypokalemia Elevated LFTs HM COLONOSCOPY Routine 11/17/2023 from Last 3 Months or Most Recently Relevant to Health Maintenance Results * eGFR (06/10/2025 11:56 AM RUG RENOVATOR) eGFR 68 >=60 mL/min/1. 73 m2 Comment: Interpretive Data [...] was last reviewed 2021. Testing performed by: [address] [address] Blood 06/10/2025 11:5 6 AM RUG RENOVATOR 06/10/2025 12:53 PM RUG RENOVATOR us Butch De Souza Jr., MD LAB BLOOD ORDERABLES Final Result [facility] [address] [facility] Department [place] [address] * (ABNORMAL) Differential, auto (06/10/2025 11:56 AM RUG RENOVATOR) Pathologist [facility] Neutrophil abs 4.75 1.50 - 6.50 K/cumm Comment:Testing performed by : [address] [address] Imm gran abs 0.02 0.00 - 0.10 K/cumm ELIF Comment:Testing performed by : [address] [address] Lymphocyte abs 1.68 0.80 - 3.30 K/cumm ELIF Comment:Testing performed by : [address] [address] Monocyte abs 0.88(H) 0.20 - 0.80 K/cumm [facility] Comment:Testing performed by : [address] [address] Eosinophil abs 0.24 0.00 - 0.50 K/cumm [facility] Comment:Testing performed by : [address], [place]., [address] Basophil abs 0.03 0.00 - 0.10 K/cumm [facility] Comment:Testing performed by : [address] [address] Neutrophil pct 62.4 % [facility] Comment: Interpretive Data Percent cell count reference ranges are not reported, since discordance with absolute values may lead to misinterpretation of CBC data. Current Interpretive Data was last revised on 2017. Testing performed by: [address] [address] Imm gran pct 0.3 % [facility] Comment: Interpretive Data Percent cell count reference ranges are not reported, since discordance with absolute values may lead to misinterpretation of CBC data. Current Interpretive Data was last revised on 2017. Testing performed by: [address] [address] Lymphocyte pct 22.1 % [facility] Comment: Interpretive Data Percent cell count reference ranges are not reported, since discordance with absolute values may lead to misinterpretation of CBC data. Current Interpretive Data was last revised on 2017. Testing performed by: [address] [address] Monocyte pct 11.6 % [facility] Comment: Interpretive Data Percent cell count reference ranges are not reported, since discordance with absolute values may lead to misinterpretation of CBC data. Current Interpretive Data was last revised on 2017. Testing performed by: [address] [address] Eosinophil pct 3.2 % [facility] Comment: Interpretive Data Percent cell count reference ranges are not reported, since discordance with absolute values may lead to misinterpretation of CBC data. Current Interpretive Data was last revised on 2017. Testing performed by: [address] [address] Basophil pct 0.4 % [facility] Comment: Interpretive Data Percent cell count reference ranges are not reported, since discordance with absolute values may lead to misinterpretation of CBC data. Current Interpretive Data was last revised on 2017. Testing performed by: [address] [address] Blood 06/10/2025 11:5 6 AM RUG RENOVATOR 06/10/2025 12:53 PM RUG RENOVATOR us Butch De Souza Jr., MD LAB BLOOD ORDERABLES Final Result [facility] Department [place] [address] * CBC with auto differential (06/10/2025 11:56 AM RUG RENOVATOR) WBC 7.60 3.80 - 9.90 K/cumm Comment:Testing performed by : [address] [address] Hgb 15.1 13.0 - 17.5 g/dL [facility] Comment:Testing performed by : [address] [address] Hct 44.5 38.9 - 50.3 % [facility] Comment:Testing performed by : [address] [address] Plt 234 150 - 400 K/cumm [facility] JENSEN Comment:Testing performed by : [address] [address] MPV 10.8 9.1 - 12.3 fL [facility]EN Comment:Testing performed by : [address] [address] RBC 5.26 4.30 - 5.80 M/cumm [facility]EN Comment:Testing performed by : [address] [address] MCV 84.6 81.3 - 96.4 fL [facility]ENSEN Comment:Testing performed by : [address] [address] MCH 28.7 27.1 - 33.3 pg [facility]EN Comment:Testing performed by : [address] [address] MCHC 33.9 32.3 - 35.7 g/dL [facility] Comment:Testing performed by : [address] [address] RDW CV 13.5 11.1 - 14.9 % [facility] Comment:Testing performed by : [address] [address] RDW SD 41.4 35.7 - 48.1 fL [facility] Comment:Testing performed by : [address] [address] NRBC abs 0.00 0.00 - 0.01 K/cumm [facility] Comment:Testing performed by : [address] [address] Blood 06/10/2025 11:5 6 AM RUG RENOVATOR 06/10/2025 12:53 PM RUG RENOVATOR us Butch De Souza Jr., MD LAB BLOOD ORDERABLES Final Result [facility] [address] [facility] Department [place] [address] * (ABNORMAL) Hemoglobin A1c (06/10/2025 11:56 AM RUG RENOVATOR) [facility] Hgb A1C 5.7(H) 4.0 - 5.6 % Comment:Testing performed by : [address] [address] Estimated Average Glucose 117 mg/dL [facility] Comment: The ADA recommends reporting an estimated Average Glucose (eAG) with all Hemoglobin A1c results using the equation derived from a study of 507 normal and diabetic adults. Minority populations were underrepresented and children were not included. (Diabetes Care 31:8849-0109, 2008). The eAG is not equivalent to a fasting glucose. Testing performed by: [address] [address] Blood 06/10/2025 11:5 6 AM RUG RENOVATOR 06/10/2025 12:53 PM RUG RENOVATOR Butch De Souza Jr., MD LAB BLOOD ORDERABLES Final Result [facility] [address] [facility] Department [place] [address] * (ABNORMAL) Comprehensive metabolic panel (06/10/2025 11:56 AM RUG RENOVATOR) Sodium 138 135 - 145 mmol/L Comment:Testing performed by : [address] [address] Potassium, pl 3.9 3.3 - 4.9 mmol/L ELIF Comment:Testing performed by : [address] [address] Chloride 102 97 - 110 mmol/L ELIF Comment:Testing performed by : [address] [address] CO2 25 22 - 32 mmol/L ELIF Comment:Testing performed by : [address] [address] Anion gap 11 2 - 15 mmol/L ELIF Comment:Testing performed by : [address] [address] BUN 24 6 - 25 mg/dL ELIF Comment:Testing performed by : [address] [address] Creatinine 1.18 0.80 - 1.30 mg/dL ELIF Comment:Testing performed by : [address] [address] Glucose 93 70 - 199 mg/dL ELIF Comment: Interpretive [...] was last revised 2022. Testing performed by: [address] [address] Calcium 9.4 8.5 - 10.3 mg/dL ELIF Comment:Testing performed by : [address] [address] Bilirubin, total 0.4 0.1 - 1.2 mg/dL ELIF Comment:Testing performed by : [address] [address] Protein, pl 7.1 6.5 - 8.5 g/dL ELIF Comment:Testing performed by : [address] [address] Albumin 4.3 3.5 - 5.0 g/dL ELIF Comment:Testing performed by : [address] [address] Alk phos 107 40 - 130 Units/L ELIF Comment:Testing performed by : [address] [address] ALT 80(H) 7 - 55 Units/L ELIF Comment:Testing performed by : [address] [address] AST 56(H) 10 - 50 Units/L ELIF Comment:Testing performed by : [address] [address] Blood 06/10/2025 11:5 6 AM RUG RENOVATOR 06/10/2025 12:53 PM RUG RENOVATOR us Butch De Souza Jr., MD LAB BLOOD ORDERABLES Final Result [facility] [address] [facility] Department [place] [address] * XR Spine Lumbar Complete 4 Or More (06/10/2025 11:44 AM RUG RENOVATOR) Anatomical Region Laterality Modality Spine N/A Computed Radiogr aphy 06/10/2025 1:59 PM RUG RENOVATOR Impressions 06/10/2025 1:59 PM RUG RENOVATOR 1. L5-S1 posterior spinal fusion. 2. Moderate L1-L5 degenerative disc disease with inferior lumbar facet osteoarthritis. Electronically signed by: Butch Hooper M.D. Narrative 06/10/2025 1:59 PM RUG RENOVATOR EXAMINATION: XR SPINE LUMBAR 4 OR MORE VIEWS HISTORY: back pain. Lumbar spondylosis FINDINGS: 5 views submitted with comparison 11/08/2024. Mild levoscoliosis of the lumbar spine. No acute fracture. Mild retrolisthesis of L1-L3. L5-S1 posterior spinal fusion is been performed. Moderate L1-L5 degenerative disc disease with inferior lumbar facet osteoarthritis. Thoracic diffuse idiopathic skeletal hyperostosis noted. Procedure Note Butch Hooper MD - 06/10/2025 EXAMINATION: XR SPINE LUMBAR 4 OR MORE VIEWS HISTORY: back pain. Lumbar spondylosis FINDINGS: 5 views submitted with comparison 11/08/2024. Mild levoscoliosis of the lumbar spine. No acute fracture. Mild retrolisthesis of L1-L3. L5-S1 posterior spinal fusion is been performed. Moderate L1-L5 degenerative disc disease with inferior lumbar facet osteoarthritis. Thoracic diffuse idiopathic skeletal hyperostosis noted. IMPRESSION: 1. L5-S1 posterior spinal fusion. 2. Moderate L1-L5 degenerative disc disease with inferior lumbar facet osteoarthritis. Electronically signed by: Butch Hooper M.D. Butch De Souza Jr., MD IMG XR PROCEDURES Fin al Result * (ABNORMAL) Albumin Creatinine Ratio, Urine (06/10/2025 10:17 AM RUG RENOVATOR) Albumin Ur 78.3 mg/L Comment: Interpretive Data No reference range established. Current interpretive data was last revised 2018. Testing performed by: [address] [address] Creatinine Ur 158.4 mg/dL [facility] Comment: Interpretive Data No reference range established. Current interpretive data was last revised 2018. Testing performed by: [address] [address] Albumin Creatinine Ratio, Ur 49(H) 1 - 29 mg/g [facility]EN Comment:Testing performed by : [facility], [address] [place] [address], [place]., [address] Urine 06/10/2025 10:1 7 AM RUG RENOVATOR 06/10/2025 12:51 PM RUG RENOVATOR us Butch De Souza Jr., MD LAB URINE ORDERABLES Final Result [facility] [address] [facility] Department [place] [address] * DEVICE CHECK - REMOTE (06/04/2025) Anatomical Region Laterality Modality Other 06/04/2025 06/04/2025 Narrative 06/05/2025 9:17 AM RUG RENOVATOR Device Summary Remote monitoring report: [facility] [employer] ILR Implant Date: Jul 08, 2019 Presenting rhythm: NSR 66 Battery status: OK Episodes Alert for patient symptoms, c/o fainted ECG shows NSR 6570 with occ PVC One false pat due to under-sensing Sp RN, BSN Procedure Note Estuardo Aquino MD - 06/05/2025 Device Summary Remote monitoring report: [employer] ILR Implant Date: Jul 08, 2019 Presenting rhythm: NSR 66 Battery status: OK Episodes Alert for patient symptoms, c/o fainted ECG shows NSR 6570 with occ PVC One false pat due to under-sensing Sp RN, BSN us Estuardo Aquino MD CV CARDIAC SERVI BALTA PROCEDURES Final Result * Cardiology Document Scan (05/04/2025 12:41 PM RUG RENOVATOR) Anatomical Region Laterality Modality Other us Madna Foster MD CV CARDIAC SERVICES PROCEDU RES Final Result * Cardiology Document Scan (05/03/2025 12:30 PM CDT) Anatomical Region Laterality Modality Other us Madan Foster MD CV CARDIAC SERVICES PROCEDU RES Final Result * Cardiology Document Scan (05/02/2025) Anatomical Region Laterality Modality Other us Zahraa Melendez NP CV CARDIAC SERVICES PROCEDU RES Final Result * ECG 12 lead (04/16/2025 10:27 AM CDT) Hyacinth Burgess NP ECG ORDERABLES Edited Re sult - Final [...] suggest bigeminy and SR with PVCs AT/AF [place]: 0% Programming Changes: No changes Plan: Follow up as recommended by [employer]. Requested pt be released to our clinic on [facility] website. Procedure Note Dario Zarate MD - 04/01/2025 In-clinic interrogation of ILR Incision Site: Left pectoral site without inflammation or adherence Device Functionality Device: Normal function Battery status: 59.5% Interrogation Presenting rhythm: VS 75 bpm Heart rate histograms: stable Episodes 7 symptom episodes, EGMs suggest bigeminy and SR with PVCs AT/AF [place]: 0% Programming Changes: No changes Plan: Follow up as recommended by [employer]. Requested pt be released to ourinic on [facility] website. us Estuardo Aquino MD CV CARDIAC SERVI BALTA PROCEDURES Final Result * PSA screen (10/23/2024 2:14 PM CDT) [...] revised 21. Testing performed by: [facility], [address] [place] [address]., [address] Blood 10/23/2024 2:14 PM CDT 10/23/2024 4:25 PM CDT us Butch De Souza Jr., MD LAB BLOOD ORDERABLES Final Result [facility] [address] [facility] Department [place] [address] * Hepatitis panel, acute Blood (07/19/2024 9:26 AM RUG RENOVATOR) Hep A IgM Nonreactive Nonreactive Comment: Interpretive Data: If Hep A IgM Ab is reported as Equivocal, a new sample should be drawn in two weeks for testing. Current interpretive data was last revised on 19. Hep B core IgM Nonreactive Nonreactive [facility] Comment: Interpretive Data If HepB Core IgM Ab is reported as Equivocal, a new sample should be drawn in two weeks for testing. Current interpretive data was last revised on 19. Hep C Ab Nonreactive Nonreactive [facility] Comment: Antibodies to HCV not detected. Does [...] last revised on 2019. HepBsAg Nonreactive Nonreactive [facility] Blood 07/19/2024 9:26 AM RUG RENOVATOR 07/19/2024 2:49 PM RUG RENOVATOR Butch De Souza Jr., MD LAB MICROBIOLOGY - GE NERAL ORDERABLES Final Result [facility] [address] [facility] Department [place] [address] * (ABNORMAL) COLONOSCOPY (11/17/2023) Scribed Colonoscopy Abnormal Historical Provider HEALTH MAINTENANCE Final Result from Last 3 Months or Most Recently Relevant to Health Maintenance Insurance MEDICARE [employer] [facility] MEDICARE [facility] Address: [address] [address] [place] [address] [facility] Advance Directives For more information, please contact: [phone] Documents on File Type Date Recorded Patient Relaster Expl anation Power of Equipment Validation Specialist 12/24/2024 5:17 AM * Full Code [...] 9:02 AM 11/17/2023 3:20 PM Care Teams Metal Worker Relationship Specialty Start Date End Date Butch De Souza Jr., MD [address] [place] [id number] PCP - General Internal Medicine 06/17/21 Yessica Worthy MD [address] [facility] [address] [place] [address] Referring Physician Rheumatology 06/17/21 [place] [address] [place] [address] Consulting Physician Gastroenterology 06/17/21 [place] [address] [place] [address] Consulting Physician Cardiovascular Disease 07/09/24 Grey Hand RN [address] [place] [address] [facility] [address] [place] [address] Campus Monitor 08/12/24 [place] [address] [facility] [address] [place] [address] Consulting Physician Pulmonary Disease 12/10/24
--- OUTSIDE RECORDS SUMMARY | 2025-06-19 15:28 | XMS_ITS | Clinical Summary ---
Author Organization [facility] Address [address] [place] [address] Phone Care Team Providers Care Building Cleaner Name Role Phone CHRIS MALAVE DO Primary Care Provider [phone] ANANDA D.CHRIS Clancy Unavailable [phone] Reason for Visit and Chief Complaint visit for: Patient presents with a complains of pressure in his ears. ~Patient is also concerned about pain in his back and shoulders. He is being followed orthopedics. He has also received injections in his back.he has prison low back pain which is some what helped with steroid injections ~Patient has a hx of atrial fibrillation. He is on Eliquis. He is being followed by cardiology. He is scheduled to see them next week. 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 Active Last Documented On 7 1:37PM ; [facility] Past Visits Onset Date Resolved Date Provider Condition Status Chronic Obstructive Pulmonary Disease 03/18/2019 CHRIS MALAVE D.O. Active Last Documented On 9 2:50PM ; [facility] Pneumonia 11/19/2018 CHRIS MALAVE D.O. Act azar Last Documented On 9 4:06PM ; [facility] Sleep apnea, unspecified 09/28/2018 CHRIS A CR ANCER D.O. Active Last Documented On 9 3:48PM ; [facility] Acute pain due to trauma 02/28/2018 CHRIS A CR ANCER D.O. Active Last Documented On 8 4:14PM ; [facility] Cervicalgia 02/28/2018 CHRIS A CRANCER D.O. Ac tive Last Documented On 8 2:25PM ; [facility] Familial Hypertriglyceridemia 01/11/2018 CHRIS A CRANCER D.O. Active Last Documented On 8 2:28PM ; [facility] Rheumatoid Arthritis Multiple Sites 01/11/2018 CHRIS A CRANCER D.O. Active Last Documented On 8 2:22PM ; [facility] Hypoxemia 07/13/2017 CHRIS A CRANCER D.O. Act azar Last Documented On 8 9:13AM ; [facility] Migraine Headache Without In tractable Migraine Without Status Migrainosus 07/13/2017 CHRIS Albarado DRAMATIC TEACHER NCER D.O. Active Last Documented On 8 9:13AM ; [facility] Arthralgia - Shoulder Region Left 01/12/2017 LE STER A CRANCER D.O. Active Last Documented On 7 3:34PM ; [facility] Myalgia 04/01/2015 CHRIS A CRANCER D.O. Act azar Last Documented On 5 10:55AM ; [facility] Transient Ischemic Attack (T ia) Without Residual Deficits 06/18/2014 CHRIS A CRANCER D.O. Active Last Documented On 4 5:24PM ; [facility] Celiac Disease 05/02/2014 CHRIS A CRANCER D.O. Active Last Documented On 4 1:38PM ; [facility] Hematuria 09/05/2013 CHRIS A CRANCER D.O. Act azar Last Documented On 4 10:43AM ; [facility] Note: Unchanged Pure Hypercholesterolemia 05/18/2012 CHRIS A C RANCER D.O. Active Last Documented On 4 4:16PM ; [facility] Atrial Fibrillation 05/18/2012 CHRIS A CRANCER D.O. Active Last Documented On 4 4:16PM ; [facility] Depressive Disorder, Nos 05/18/2012 CHRIS GE D.O. Active Last Documented On 4 4:16PM ; [facility] Plan of Treatment - Return to the clinic if condition worsens or new symptoms arise - Last Documented On 08/17/2020 10:34AM ; [facility] - Patient to call if problem develops - Last Documented On 08/17/2020 10:34AM ; [facility] ETD Will have the patient use Flonase 2 sprays each nostril once a day Depression Doing well. - Last Documented On 08/17/2020 10:34AM ; [facility] Education and Decision Aids were provided during visit for: Education and counseling Last Documented On 1 2:29PM ; [facility] Assessments Includes: Assessments from this encounter Findings - [H69.80 - Other specified disorders of Eustachian tube, unspecified ear] Eustachian tube dysfunction - Last Documented On 08/17/2020 10:34AM ; [facility] - [I10 - Essential (primary) hypertension] Benign essential hypertension - Last Documented On 08/17/2020 10:34AM ; [facility] - [M54.5 - Low back pain] Low back pain - Last Documented On 08/17/2020 10:34AM ; [facility] Instructions Includes: Instructions from this encounter Education and Decision Aids were provided during visit for: Education and counseling Last Documented On 2:29PM ; [facility] Medical Equipment - Implanted Devices Includes: Current Devices No Medical Equipment Recorded Medications Includes: Medications discussed during this encounter and other current Medications Discontinued / Stopped on this date CHRIS MALAVE D.O. on 12/16/2019 Fluticasone Propionate 50 MCG/ACT Nasal Suspension Provider: CHRIS Rubio D.O. Diagnosis: Acute sinusitis, unspecified Last Documented On 08/13/2020 2:12PM By ASHISH SMILEY ; [facility] Flutamide 125 MG Oral Capsule Provider: Diagnosis: Last Documented On 08/13/2020 2:18PM By ASHISH SMILEY ; [facility] Isosorbide Dinitrate 20MG Oral Tablet Pro vider: Diagnosis: Last Documented On 08/13/2020 2:13PM By ASHISH SMILEY ; [facility] Doxepin HCl 25MG Oral Capsule Provider: Diagnosis: Last Documented On 08/13/2020 2:14PM By ASHISH SMILEY ; [facility] Atorvastatin Calcium 40MG Oral Tablet Pro vider: Diagnosis: Last Documented On 08/13/2020 2:14PM By ASHISH SMILEY ; [facility] Venlafaxine HCl ER 150 MG Tablet, extended-release 24 hour Provider: Diagnosis: Last Documented On 08/13/2020 2:13PM By ASHISH SMILEY ; [facility] New / Renewed during this visit CHRIS MALAVE D.O. on 08/13/2020 Fluticasone Propionate 50 MCG/ACT Nasal Suspension Provider: CHRIS Rubio D.O. 30 day supply: 15.8 mL, 0 refills Diagnosis: Oth disrd of Eustachian tube, unspecified ear 2 sprays each nostril once daily. [facility]acy: [facility], [phone] - Last Documented On 08/13/2020 2:29PM By JOSE DHILLON ; [facility] Current Medications (continue as prescribed) Potassium Chloride Torri ER 2 0 MEQ Oral Tablet Extended Release 09/21/2020 Provider: CHRIS MALAVE D.O. Diagnosis: TAKE 1 TABLET BY MOUTH DAILY Last Documented On 09/21/2020 4:02PM By ASHISH SMILEY ; [facility] Isosorbide Mononitrate ER 30 MG Oral Tablet Extended Release 24 Hour 08/13/2020 Provider: Diagnosis: 1 qdCardiology Last Documented On 08/13/2020 2:17PM By ASHISH SMILEY ; [facility] Vascepa 1 GM Oral Capsule 08/13/2020 Provider: Diagnosis: 2 po BID Last Documented On 08/13/2020 2:20PM By ASHISH SMILEY ; [facility] Leflunomide 10 MG Oral Tablet 08/13/2020 Provider: Diagnosis: 1/2 tab qd Last Documented On 08/13/2020 2:19PM By ASHISH SMILEY ; [facility] SEROquel 300 MG Oral Tablet 08/13/2020 Provider: Diagnosis: 1 qdPsychiatrist Last Documented On 08/13/2020 2:16PM By ASHISH SMILEY ; [facility] Atorvastatin Calcium 40 MG Oral Tablet 08/13/2020 Pr ovider: Diagnosis: 1 qdCardiology Last Documented On 08/13/2020 2:15PM By ASHISH SMILEY ; [facility] Aspirin Adult Low Dose 81 MG Oral Tablet Delayed Relea se 05/19/2020 Provider: Diagnosis: 1 po qdotc Last Documented On 05/19/2020 9:05AM By ASHISH SMILEY ; [facility] HYDROcodone-Acetaminophen 10-325 MG Oral Tablet 2019 Provider: Diagnosis: 1 every 8 hours. Last Documented On 08/14/2019 1:06PM By Carolina Velazco MA ; [facility] Nitrostat 0.4 MG Sublingual Tablet Sublingual 04/11/2019 Provider: CHRIS Andre Diagnosis: Chest pain, unsp ecified as directed ONE TAB AT ONSET OF PAIN AND MAY REPEAT EVERY 5-10 MIN UNTIL 3 DOSE OR RELIEF, TO ER IF THIRD DOSE NEEDED Last Documented On 04/11/2019 12:30PM By DEBBIE SMILEY ; [facility] Naproxen Sodium ER 500 MG Oral Tablet Extended R elease 24 Hour 03/14/2019 Provider: Diagnosis: 1-2 tabs po daily as needed for BENDER Last Documented On 03/14/2019 1:06PM By BRISEIDA ONEILL LPN ; [facility] Pnfzh-2-Dzsc Eth Est (Dietary) 1 GM Oral Capsule 03/14 Provider: Diagnosis: Take 2 caps in the a.m. and 2 in the p.m. Last Documented On 03/14/2019 1:11PM By BRISEIDA ONEILL LPN ; [facility] Prazosin HCl 2MG Oral Capsule 02/28/2018 Provider: Diagnosis: 2 mg at bedtime, Psychiatrist, Last Documented On 8 3:58PM By SHOLA SMILEY ; [facility] Cyanocobalamin 2500MCG Sublingual Tablet, sublingual 0 11/14/2017 Provider: Diagnosis: sublingual, every morning Last Documented On 8 10:40AM By SHOLA SMILEY ; [facility] Ascorbic Acid 500MG Oral Tablet 11/14/2017 Provider: Diagnosis: Last Documented On 8 10:39AM By SHOLA SMILEY ; [facility] Fenofibrate 160MG Oral Tablet 11/14/2017 Provider: Diagnosis: Last Documented On 8 10:38AM By SHOLA SMILEY ; [facility] AmLODIPine Besylate 10MG Oral Tablet 11/14/2017 Prov ider: Diagnosis: Last Documented On 8 10:36AM By SHOLA SMILEY ; [facility] SEROquel 300MG Oral Tablet 09/28/2017 Provider: Diagnosis: Take 2 at bedtime Last Documented On 8 1:06PM By SHOLA SMILEY ; [facility] Magnesium 250MG Oral Tablet 07/21/2017 Provider: Diagnosis: Take 2 in the am Last Documented On 8 3:43PM By SHOLA SMILEY ; [facility] Vitamin B-2 100MG Oral Tablet 04/21/2017 Provider: Diagnosis: Take 2 in the morning and 2 at bedtime Last Documented On 7 11:45AM By SHOLA SMILEY ; [facility] Leflunomide 20MG Oral Tablet 04/21/2017 Provider: Diagnosis: Take 1 in the morning Last Documented On 7 11:44AM By SHOLA SMILEY ; [facility] Gabapentin 300MG Oral Capsule 04/21/2017 Provider: Diagnosis: Take 1 in the morning and 2 at bedtime Last Documented On 7 11:43AM By SHOLA SMILEY ; [facility] Sotalol HCl 80MG Oral Tablet 04/21/2017 Provider: Diagnosis: Take 1/2 at bedtime Last Documented On 7 11:46AM By SHOLA SMILEY ; [facility] Melatonin 5MG Oral Tablet 04/21/2017 Provider: Diagnosis: Take 2 at bedtime Last Documented On 7 11:48AM By SHOLA SMILEY ; [facility] Vitamin D3 2000UNIT Oral Tablet 04/21/2017 Provider: Diagnosis: Take 2 in the morning Last Documented On 7 11:48AM By SHOLA SMILEY ; [facility] Topamax 100MG Oral Tablet 01/12/2017 Provider: Diagnosis: 1 po BID-Neurology fills this Last Documented On 01/12/2017 3:39PM By ASHISH SMILEY ; [facility] Warfarin Sodium 5 MG Tablet 07/22/2015 Provider: Diagnosis: Last Documented On 07/22/2015 8:47AM By Ximena SMILEY ; [facility] Medications Administered Includes: Administered Medications from this encounter No Administered Medications Recorded Vital Signs Includes: Vital Signs from this encounter Vital Name 08/13/2020 02:08P Blood Pressure Sitting (mmHg) 140/70 Pulse Rate-Sitting (bpm) 96.8 Respiration Rate (breaths/min) 20 Temp-Oral (F) 86 Height (in) 76 Weight (lb) 328 Body Mass Index (kg/m2) 39.9 Body Surface Area (m2) 2.7 Last Documented: On 08/13/2020 2:20PM ; [facility] Results Includes: Results discussed during this encounter No Results Recorded For Specified Dates History of Present Illness Includes: History of Present Illness from this encounter JESSE RODRIGUEZ is a 60 year old male. - No systemic symptoms. - No cardiovascular symptoms. - No pulmonary symptoms. Social History Description Last Updated Non-smoker 11/13/2019 Last Documented On 1 2:08PM ; [facility] Smoking status : Never smoker 03/14/2019 Last Documented On 1 2:08PM ; [facility] Currently 01/23/2014 Last Documented On 1 2:08PM ; [facility] No consumption of alcohol 01/23/2014 Last Documented On 1 2:08PM ; [facility] No tobacco use 01/23/2014 Last Documented On 1 2:08PM ; [facility] Not a current smoker 01/23/2014 Last Documented On 1 2:08PM ; [facility] Not using alcohol 01/23/2014 Last Documented On 1 2:08PM ; [facility] Not using drugs 01/23/2014 Last Documented On 1 2:08PM ; [facility] Procedures and Surgical History Includes: Procedures from this encounter Procedures Code Diagnosis Performing Provider Service L ocation Service Date continue current medication Last Documented On 1 2:29PM ; [facility] plan of care reviewed and agreed to Last Documented On 1 2:29PM ; [facility] review of medications documented 1160F Last Documented On 1 2:21PM ; [facility] Clinical summary provided to patient Last Documented On 1 2:29PM ; [facility] Medical History Includes: Medical History addressed during this encounter Description Last Updated Pt does not get blood pressure checked a t other facility 01/20/2010 Last Documented On 1 2:08PM ; [facility] AFIB,RA,DEPRESSION,ELEVATED LIVER ENZYME S 09/17/2009 Last Documented On 1 2:08PM ; [facility] History of coronary artery disease 09/17 Last Documented On 1 2:08PM ; [facility] History of hyperlipidemia 09/17/2009 Last Documented On 1 2:08PM ; [facility] Exposure to dust 12/11/2008 Last Documented On 1 2:08PM ; [facility] Surgery BACK SURGERY 12/11/2008 Last Documented On 1 2:08PM ; [facility] Family History Includes: Family History addressed during this encounter Description Last Updated Family history reviewed - unchanged sinc e last visit 09/18/2015 Last Documented On 1 2:08PM ; [facility] Sororal history of coronary artery disea se 11/04/2014 Last Documented On 1 2:08PM ; [facility] Family medical history : No significant family history 11/03/2014 Last Documented On 1 2:08PM ; [facility] Sister SEVERE HEART ARYTHMIA ? 12/11/2008 Last Documented On 1 2:08PM ; [facility] Review of Systems Includes: Review of Systems from this encounter Systemic: Not feeling poorly (malaise). No edema. Head: No headache. Otolaryngeal: Earache in left ear. Cardiovascular: No chest pain or discomfort. Pulmonary: No dyspnea and [...] ctive Last Documented On 0 1:06PM ; [facility] Imitrex Allergy rapid HR 04/23/2010 Active Last Documented On 0 1:06PM ; [facility] Abilify Allergy 04/23/2010 Active Last Documented On 0 1:06PM ; [facility] Encounters Encounter Provider Location Date Check-In Time Check-Out Time Diagnosis PROBLEM VISIT CHRIS MALAVE D.O. [facility] 021 1:20PM 2:39PM Eustachian Tube Dysfunction,Ess ential Hypertension Benign,Low Back Pain Insurance Includes: Active Insurance Policies Plan Name Member ID Group # Subscriber Relationship Effect azar Dates 1 - MEDICARE PART A CLAIMS/NGS [id number] KINDRA A RODRIGUEZ Self 12/01/2009 - Unknown 2 - [facility] [id number] KINDRA A RODRIGUEZ Self Clinical Notes Includes: Clinical Notes from this encounter No Clinical Notes Recorded
--- OUTSIDE RECORDS SUMMARY | 2025-06-19 15:28 | XMS_ITS | Data Portability ---
Author Organization [facility] [employer], Main Office Address [address] [place] [address] Care Team Providers Care Traditional Chinese Herbalist Name Role Phone PARVEZ KELLY Referring Provider [facility] Customer Success Specialist Assessment No assessment recorded. Plan of Treatment Reminders Order Date Submit Date Provider Last Modified By Organization Details Last Modified Time Details Appointments None recorded. Lab TSH, serum or plasma 2022 023 [employer] [facility], [facility] [address], [address], 3 21:02:00 T4, free, serum 2022 023 [employer] [facility], [facility] [address], [address], 3 21:02:00 HbA1c (hemoglobin A1c), blood 2022 023 [employer] [facility], [facility] [id number], [address], 3 14:47:36 CMP, serum or plasma 2022 023 [employer] [facility], [facility] [id number], [address], 3 14:47:30 microalbumi n/creatinin e, mass ratio, urine 2022 023 [employer] [facility], [facility] [address], [address], 3 10:26:45 aldosterone /renin activity, ratio, plasma 2022 023 [employer] [facility], [address] [address], [place], [address], 3 14:47:33 aldosterone , serum 2022 023 [employer] [facility], [address] [address], [place], [address], 3 14:47:32 renin, QN, plasma 2022 023 [employer] [facility], [address] [address], [place], [address], 3 14:47:31 dexamethaso ne, serum 2022 023 [employer] [facility], [address] [address], [place], [address], 3 09:41:30 cortisol, am, serum 2022 023 [employer] [facility], [address] [address], [place], [address], 3 09:41:31 TSH + free T4, serum 2022 023 [employer] [facility], [address] [address], [place], [address], 3 14:47:35 thyroid peroxidase (tpo) Ab, serum 2022 023 [employer] [facility], [address] [address], [place], [address], 3 14:50:18 Referral otolaryngol ogist referral 2022 023 STELLA Steph Gipson MD, [address], [place], [address], 16:16:08 Procedures fine needle aspiration, ultrasound guided, thyroid (PROC) 2022 023 [facility] ([facility]), [address] [place] [address] [place], [address], 12:48:05 Surgeries None recorded. Imaging US, thyroid 2022 023 [facility], [address] [place] [address] , [place], [address], 18:11:04 Medication Orders Ozempic 1 mg/dose (4 mg/3 mL) subcutaneou s pen injector 2022 023 [email or web address] [employer] [facility], [address] [place] [address], [address], 09:11:28 dexamethaso ne 1 mg tablet 2022 023 [email or web address] [id number], [address], [place], [id number], 08:57:19 Patient TargetsNo targets recorded. 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 It has not been clear ed or appro giana by FDA. This assay has been valid ated pursu ant to the CLIA regul ation s and is used for clini kelly purpo ses. Not Available [employer] [facility] [address] [place], [address], 12/22/2022 09:41:30 12/13/1912/22/2022 CORTI MARTY, A.M. cortisol, A.M. 2.2 mcg/d L low Refer ence Range 8 a.m. (7-9 a.m.) Speci men: 4.0-2 2.0 Not Available [employer] [facility] [address] [place], [address], 12/22/2022 09:41:31 01/11/20 23 01/10/2023 PLATE LET COUNT platelets 241 x10'3 /uL 150-40 0 Not Available [facility] (Lab) [address] [place], [address], 01/10/2023 09:46:29 01/11/2001/10/2023 PROTI ME W/INR protime 10.0 secon ds 9.5-11 .5 Not Available [facility] (Lab) [address] [place], [address], 01/10/2023 10:04:51 01/11/2001/10/2023 PROTI ME W/INR INR 1.0 INR INDIC ATION S 2.0 - 3.0 PROPH YLAXI S: VENOU S THROM BOSIS (HIGH RISK SURGE RY) AND SYSTE ANDRA EMBOL ISM (TISS UE HEART VALVE S, AMI VALVU LAR HEART DISEA SE AND ATRIA L FIBRI LLATI ON). TREAT MENT: VENOU S THROM BOSIS AND PULMO NARY EMBOL ISM BILEA FLET MECHA NICAL VALVE S IN AORTI C POSIT ION. 2.5 - 3.5 MECHA NICAL PROST HETIC HEART VALVE S (TILT ING DISK VALVE S AND BILEA FLET MECHA NICAL VALVE S IN MAURY L POSIT ION). PREVE NTION OF RECUR RENT MYOCA RDIAL INFAR CTION . ANTIP HOSPH OLIPI D SYNDR OME. Not Available [facility] (Lab) [address] [place], [address], 01/10/2023 10:04:51 01/11/2001/10/2023 APTT APTT 24.5 secon ds 23.4-3 1.4 PLEAS E NOTE NEW APTT REFER ENCE RANGE EFFEC TIVE 06/20 . Not Available [facility] (Lab) [address] [place], [address], 01/10/2023 10:06:07 03/03/20 23 03/03/2023 HEMOG LOBIN /RUBIN TOCRI T hemoglobin 13.9 g/dL 13.2-1 7.0 Not Available [facility] (Lab) [address] [place], [address], 03/03/2023 09:54:53 03/03/2003/03/2023 HEMOG LOBIN /RUBIN TOCRI T hematocrit 41.2 % 39.3-5 0.0 Not Available [facility] (Lab) [address] [place], [address], 03/03/2023 09:54:53 03/03/2003/03/2023 PLATE LET COUNT platelets 273 x10'3 /uL 150-40 0 Not Available [facility] (Lab) [address] [place], [address], 03/03/2023 09:54:54 03/03/20 23 03/03/2023 POTAS SIUM potassium 3.5 mmol/ L 3.5-5. 1 Not Available [facility] (Lab) [address] [facility], [place], [address], 03/03/2023 10:02:53 03/10/2003/16/2023 ACTH, PLASM A acth, plasma 37 pg/mL 6-50 Refer ence range appli es only to speci mens colle cted betwe en 7am-1 0am. Not Available [employer] [address] [address] [place], [address], 03/16/2023 09:10:51 03/10/2003/16/2023 CORTI MARTY, FREE, 24 HOUR URINE total volume 3000 mL Not Available [employer] [address] [place], [address], 03/16/2023 09:10:52 03/10/2003/16/2023 CORTI MARTY, FREE, 24 HOUR URINE cortisol, free, urine 13.2 mcg/2 4_h 4.0-50 .0 Not Available [employer] [address] [address] [place], [address], 03/16/2023 09:10:52 03/10/2003/16/2023 CORTI MARTY, FREE, 24 HOUR URINE cortisol, free, urine 6.6 mcg/g _crea t Refer ence Range : ADULT S: 3.1-4 2.3 Not Available [employer] [address] [address] [place], [address], 03/16/2023 09:10:52 03/10/2003/16/2023 CORTI MARTY, FREE, 24 HOUR URINE creatinine, urine 2.00 g/24_ h 0.50-2 .15 This test was devel oped and its braeden tical perfo rmanc e rodney cteri stics have been deter mined by [facility] ostanjali s Matt [employer] Inst[employer] Alex Rocha trannsarin . It has not been clear ed or appro giana by FDA. This assay has been valid ated pursu ant to the CLIA regul ation s and is used for clini kelly purpo ses. Not Available [facility] [address] [address] [place], [address], 03/16/2023 09:10:52 03/10/20 23 03/16/2023 CORTI MARTY, A.M. cortisol, A.M. 21.6 mcg/d L normal Refer ence Range 8 a.m. (7-9 a.m.) Speci men: 4.0-2 2.0 Not Available [facility] [address] [address] [place], [address], 03/16/2023 09:10:53 03/14/20 23 03/21/2023 CORTI MARTY, LC/MS , SALIV A, 2 SAMPL ES draw date [id number] Not Available [facility] [address], [address], 03/21/2023 15:37:57 03/14/20 23 03/21/2023 CORTI MARTY, LC/MS , SALIV A, 2 SAMPL ES draw time 1 164 Not Available [facility] [address], [address], 03/21/2023 15:37:57 03/14/20 23 03/21/2023 CORTI MARTY, LC/MS , SALIV A, 2 SAMPL ES cortisol, saliva sample 1 0.06 mcg/d L 8-10 AM: 0.04- 0.56 mcg/d L noon- 2 PM: < OR = 0.21 mcg/d L 4-6 PM: < OR = 0.15 mcg/d L 10 PM-1 AM: < OR = 0.09 mcg/d L Pleas e note, Saliv ette( R) (Orde r numbe r: 51.15 34) is not an accep table saliv a colle ction devic e for this assay . We will rejec t all white top Saliv ette( R) colle ction devic es as wrong speci men type. Pleas e conta ct [facility] for the Saliv ette( R) Corti marty with blue screw top (Orde r numbe r: 51.15 34.50 0) if you are still using white top Saliv ette( R). This test was devel leoned and its braeden tical perfo rmanc e rodney cteri stics have been deter mined by [facility] ostanjali s Matt kristy [place] dorethae [place] Aj kerr . It has not been clear ed or appro giana by FDA. This assay has been valid ated pursu ant to the CLIA regul ation s and is used for clini kelly purpo ses. Not Available [facility] [address] [address] [place], [address], 03/21/2023 15:37:57 03/14/20 23 03/21/2023 CORTI MARTY, LC/MS , SALIV A, 2 SAMPL ES draw date [id number] Not Available [facility] [address] [address] [place], [address], 03/21/2023 15:37:57 03/14/20 23 03/21/2023 CORTI MARTY, LC/MS , SALIV A, 2 SAMPL ES draw time 2 2199 Not Available [facility] [address] [address] [place], [address], 03/21/2023 15:37:57 03/14/2003/21/2023 CORTI MARTY, LC/MS , SALIV A, 2 SAMPL ES cortisol, saliva sample 2 <0.03 mcg/d L 8-10 AM: 0.04- 0.56 mcg/d L noon- 2 PM: < OR = 0.21 mcg/d L 4-6 PM: < OR = 0.15 mcg/d L 10 PM-1 AM: < OR = 0.09 mcg/d L Pleas e note, Saliv ette( R) (Orde r numbe r: 51.15 34) is not an accep table saliv a colle ction devic e for this assay . We will rejec t all white top Saliv ette( R) colle ction devic es as wrong speci men type. Pleas e conta ct [facility] for the Saliv ette( R) Corti marty with blue screw top (Orde r numbe r: 51.15 34.50 0) if you are still using white top Saliv ette( R). This test was devel oped and its braeden tical perfo rmanc e rodney cteri stics have been deter mined by [facility] ostic s Matt ls Insti t[employer] [place] Capis trano . It has not been clear ed or appro giana by FDA. This assay has been valid ated pursu ant to the CLIA regul ation s and is used for clini kelly purpo ses. Not Available [employer] [address] [address] [address] , [place], [address], 03/21/2023 15:37:57 12/15/19 23 US, head + neck, soft tissu e [facility] [address] [place] [address] Patien t Name: LONDON MENENDEZ Access ion #: [id number] Sex: M : 1959 2 Locati on: RA2 Attend ing Physic sharon: PHILIPPE HARRISON Orderi Physic sharon: PHILIPPE HARRISON Exam Date: 023 12:01 PM Exam Name: US NECK/H EAD SOFT TISSUE Admitt ing Diagno sis(es ): RADIOL OGY REPORT - FINAL EXAM: US NECK/H EAD SOFT TISSUE HISTOR Y: hypoth yroidi sm COMPAR DANIA: None. TECHNI QUE: Ultras ound evalua tion of the thyroi d gland was perfor med. FINDIN GS: Right thyroi d lobe: The right lobe of the thyroi d gland measur es 5.2 x 2.3 x 2.7 cm cm. The thyroi d parenc hyma is hetero geneou s demons tratin g a 3.3 x 1.7 x 2.4 cm comple x mass of the right mid thyroi d lobe. No abnorm al color Dopple r blood flow thyroi d lobe. Suspic ious calcif icatio ns. Left thyroi d lobe: The left lobe of the thyroi d gland measur es 4.2 x 1.6 by Page 1 of 2 [facility] t Name: LONDON MENENDEZ Access ion #: [id number] Sex: M : 1959 2 Exam Date: 023 12:01 PM Exam Name: US NECK/H EAD SOFT TISSUE Admitt ing Diagno sis(es ): 2.0 cm. The thyroi d parenc hyma is hetero geneou s demons tratin g a 0.8 x 0.6 x 0.7 cm mid hypoec hoic nodule and a 0.3 x 0.2 x 0.4 cm superi or nodule within the left no abnorm al color Dopple r blood flow or suspic ious calcif icatio ns. Isthmu s: The thyroi d isthmu s measur es 0.2 mm in width. The thyroi d parenc hyma is hetero geneou s withou t solid nodule s or cystic lesion s. No abnorm al color Dopple r blood flow or suspic ious calcif icatio ns. IMPRES ESTEPHANIA: Ti-Rad s 4: Modera tely suspic ious. Ultras ound-g uided biopsy of the right thyroi d lobe nodule is recomm ended. Create d and electr onical ly signed by: Chad monreal MD Signed Date: 5:06 PM (CT) Dictat ed by: Chad monreal MD DD: 023 5:06 PM (CT) DT: 023 5:06 PM (CT) Page 2 of 2 [email or web address] [facility] (Imaging) [address] [place], [address], 12/27/2022 22:57:01 12/15/19 23 12/14/2022 US, thyro id No observ ation record ed. [email or web address] [facility] [address] [place], [address], 02/01/2023 09:36:32 12/16/[address], face, w/ contr ast No observ ation record ed. [email or web address] Not Available 2022 09:35:14 01/12/20 23 01/11/2023 US-fn a W img 1st [facility] [address] [facility] [place] [address] Patiemanuel t Name: LONDON MENENDEZ Access ion #: [id number] Sex: M : 1959 8 Locati on: RAD Attend ing Physic sharon: STEPH DICKENS Orderi ng Physic sharon: STEPH DICKENS Exam Date: 023 8:04 AM Exam Name: US FNA W IMG 1ST LES Admitt ing Diagno sis(es ): RADIOL OGY REPORT - FINAL EXAM: US FNA W IMG 1ST LES HISTOR Y: US FNA W IMG 1ST [facility] 62-yea r-old male with right thyroi d solid- cystic 3.3 cm mass. COMPAR DANIA: Thyroi d ultras ound examin ation dated 2022. TECHNI QUE: EXPLAN ATION: The risks and benefi ts of FNA were discus sed with the patien t, includ ing risks of bleedi ng and infect ion. The patien t agreed to procee d and gave inform ed consen t. The skin of the right side of the neck was marked , and the patien t agreed that the right side was the correc t side. Time-o ut was perfor med. PROCED URE: Page 1 of 2 [facility] Name: LONDON MENENDEZ Access ion #: [id number] Sex: M : 1959 8 Exam Date: 023 8:04 AM Exam Name: US FNA W IMG 1ST LES Admitt ing Diagno sis(es ): The skin of the right neck was prepar ed and draped steril suzy with Betadi ne. 1% lidoca ine withou t epinep hrine was used to anesth etize the skin and subcut aneous tissue s. An 18 gauge needle was attach ed to a small syring e and advanc ed into the mass under ultras ound guidan ce. A jabbin g motion was utiliz ed to perfor m FNA. This was repeat ed for a total of 3 passes . The FNA aspira salvador were given to the pathol ogist who was presen t during the proced ure. Follow ing comple tion of the FNA, pressu re was held over the biopsy site. The skin was cleans ed, and a small bandag e placed . The patien t tolera maxime the proced ure well, and there were no immedi ate compli cation s. Multip le perman ent sonogr aphic images were obtain ed before and during the proced ure. IMPRES ESTEPHANIA: 1. Succes sful ultras ound-g uided FNA of the right thyroi d solid- cystic mass. 2. Histop atholo gical analys is is herlinda sanchez Create d and electr onical ly signed by: Tone kumari MD Signed Date: 10:54 AM (CT) Dictat ed by: Tone kumari MD DD: 10:54 AM (CT) DT: 023 10:54 AM (CT) Page 2 of 2 [facility] (Imaging) [address] [place], [address], 01/12/2023 16:57:27 01/12/20 23 fine needl e aspir ation , ultra sound guide d, thyro id (PROC ) No observ ation record ed. [email or web address] [facility] ([facility]) [address] [place], [address], 01/11/2023 12:48:18 01/19/20 23 fine needl e aspir ation , ultra sound guide d, thyro id (PROC ) No observ ation record ed. [email or web address] Not Available 2022 08:52:38 Result Notes None recorded. Problems Name Problem SNOMED Code Status Onset Date Resolution Date Notes Provider Name and Address Organization Details Recorded Time Hypothyroid ism 75814993 Active 2022 Philippe Harrison MD [address] [facility], [facility] [address], [place], [address], [employer] [facility] 3 21:29:49 Well controlled type 2 diabetes mellitus 756518746 Active 2022 Philippe Harrison MD [address], [place], [address], [employer] [facility] 3 21:30:18 Mixed hyperlipide braulio 265786494 Active 2022 Philippe Harrison MD [address], [address], [place], [address], [employer] [facility] 3 21:30:37 Chronic sinusitis 08264826 Active 2022 Philippe Harrison MD [address], [place], [address], [employer] [facility] 3 14:40:54 Essential hypertensio n 79243562 Active 2022 Philippe Harrison MD [address], [place], [address], [facility] 3 14:44:04 Thyroid nodule 915795478 Active 2022 Chana Toussaint RN null, [employer] [facility] [employer] [facility] 3 15:22:52 Pain of left temporomand ibular joint [id number] 9107 Active 2022 Steph Gipson MD [address], [place], [address], [employer] [facility] 3 15:25:14 Hypercortis olism 64364889 Active 2022 Philippe Harrison MD [address], [place], [address], [employer] [facility] [employer] [facility] 3 19:35:59 Thyroid function tests abnormal 447266863 Active 2022 Chana Toussaint RN null, [facility] [employer] [facility] 3 12:30:41 Papillary thyroid carcinoma 868714245 Active 2022 Steph Gipson MD [address] [facility], [facility] [address], [place], [address] [place] [address] [employer] 3 16:53:40 Problem Notes None recorded. Procedures Surgical History Date Name Laterality Status Provider Name and Address Organization Details Recorded Time 3 excision of right lobe of thyroid gland completed Chana Toussaint RN [facility] [employer] 03/20/2023 09:07:38 Back Surgery completed Not Available [facility] 08/31/2022 23:05:48 Shoulder joint surgery completed Bell Vann CMA [employer] 12/13/2022 10:37:09 Imaging Results None recorded. Procedure Notes None recorded. Medical Equipment None Reported. Allergies Allergen ID Allergen Name Allergen Category Reaction Reaction Severity Criticality Documentation Date Start Date Code Code System Note Provider Name and Address Organization Details Recorded Time 76053 Plaquenil medicatio n Not available Not available Not available 08/31/2022 72052 2 RxNorm Not Available [facility] 3 23:09:53 50805 methotrex ate medicatio n Not available Not available Not available 08/31/2022 6851 [facility] Not Available [facility] 3 23:09:53 55590 Imitrex medicatio n Not available Not available Not available 08/31/2022 01789 3 [facility] Not Available [facility] 3 23:09:53 43955 Ambien medicatio n Not available Not available Not available 08/31/2022 70574 5 RxNorm Not Available [facility] 3 23:09:53 25454 Abilify medicatio n Not available Not available Not available 08/31/2022 21147 3 [facility] Not Available [facility] 3 23:09:53 Medications Name Sig Start Date Stop Date Status Note LastModified by Organization Details LastModified Time losartan 50 mg tablet active Not Available Not Available No t Available cyclobenzap rine 10 mg tablet TAKE 1 TABLET BY MOUTH TWICE DAILY NEEDED 12/01 completed Not Available Not Available Not Available latanoprost 0.005 % eye drops 12/01 completed Not Available Not Available Not Available atorvastati n 40 mg tablet TAKE 1 TABLET BY MOUTH EVERY DAY active Not Available Not Available No t Available silver sulfadiazin e 1 % topical cream APPLY TO THE AFFECTED AREA TWICE DAILY OR WITH EACH DRESSING CHANGE 12/01 completed Not Available Not Available Not Available doxycycline hyclate 100 mg capsule TAKE 1 CAPSULE BY MOUTH TWICE DAILY 12/01 completed Not Available Not Available Not Available quetiapine 300 mg tablet TAKE 1 AND 1/2 TABLETS BY MOUTH AT BEDTIME 12/01 completed Not Available Not Available Not Available azithromyci n 250 mg tablet TAKE 1 TABLET BY MOUTH DAILY FOR 4 DAYS 12/01 completed Not Available Not Available Not Available hydrochloro thiazide 50 mg tablet 12/01 completed Not Available Not Available Not Available doxepin 25 mg capsule TAKE ONE CAPSULE BY MOUTH AT BEDTIME 02/23 completed Not Available Not Available Not Available cephalexin 250 mg capsule 12/01 completed Not Available Not Available Not Available sotalol 80 mg tablet TK 1 T PO BID. 02/23 completed Not Available Not Available Not Available isosorbide mononitrate ER 30 mg tablet,exte nded release 24 hr TK 1 T PO QD 12/01 completed Not Available Not Available Not Available clonazepam 0.5 mg tablet TAKE 1 TABLET BY MOUTH TWICE DAILY NEEDED FOR ANXIETY active Not Available Not Available No t Available venlafaxine ER 150 mg capsule,ext ended release 24 hr TAKE 2 CAPSULES BY MOUTH DAILY 12/01 completed Not Available Not Available Not Available leflunomide 10 mg tablet TK 1/2 T PO ONCE D UNTIL NEXT APPOINTME NT AND LABS active Not Available Not Available No t Available clopidogrel 75 mg tablet TAKE 1 TABLET BY MOUTH EVERY DAY active Not Available Not Available No t Available hydrocodone 10 mg-acetamin ophen 325 mg tablet TAKE 1 TABLET BY MOUTH EVERY 8 HOURS NEEDED FOR PAIN 12/01 completed Not Available Not Available Not Available quetiapine 100 mg tablet TAKE 1 TABLET BY MOUTH EVERY DAY AT BEDTIME active Not Available Not Available No t Available spironolact one 25 mg tablet active Not Available Not Available Not Available butalbital- acetaminoph en-caffeine 50 mg-325 mg-40 mg tablet TAKE 1 TABLET BY MOUTH EVERY 6 HOURS NEEDED FOR HEADACHE 12/01 completed Not Available Not Available Not Available levothyroxi ne 25 mcg tablet TAKE 1 TABLET BY MOUTH ON HUR/ AT/ UNDAY& 2 TABLETS ON MONDAY// RID12/01 completed Not Available Not Available Not Available warfarin 4 mg tablet TK 1 T PO QOD WITH HALF OF THE 10 MG TABLET TO MAKE 9 MG TOTAL EVERY OTHER DAY 02/23 completed Not Available Not Available Not Available cefadroxil 500 mg capsule 03/16 completed Not Available Not Available Not Available isosorbide mononitrate ER 60 mg tablet,exte nded release 24 hr TAKE 1 TABLET BY MOUTH EVERY DAY active Not Available Not Available No t Available amiloride 5 mg tablet 12/01 completed Not Available Not Available Not Available warfarin 6 mg tablet TK 1AND 07/04 TS PO QPM 02/23 completed Not Available Not Available Not Available potassium chloride ER 20 mEq tablet,exte nded release(par t/cryst) TAKE 1 TABLET BY MOUTH EVERY DAY WITH FOOD 12/01 completed Not Available Not Available Not Available oxycodone-a cetaminophe n 10 mg-325 mg tablet TAKE 1 TABLET BY MOUTH EVERY 12 HOURS NEEDED FOR PAIN 12/01 completed Not Available Not Available Not Available dexamethaso ne 1 mg tablet take dexa tablet at 10 pm night before 8 am cortisol 03/16 completed Not Available Not Available Not Available amlodipine 10 mg tablet TAKE 1 TABLET BY MOUTH EVERY DAY active Not Available Not Available No t Available benzonatate 100 mg capsule TAKE 1 CAPSULE BY MOUTH EVERY 8 HOURS 12/01 completed Not Available Not Available Not Available hydrocodone 7.5 mg-acetamin ophen 325 mg tablet TAKE 1 TABLET BY MOUTH EVERY 4 HOURS NEEDED 03/16 completed Not Available Not Available Not Available pantoprazol e 40 mg tablet,lloyd yed release TAKE 1 TABLET BY MOUTH EVERY DAY 12/01 completed Not Available Not Available Not Available cyanocobala min (vit B-12) 1,000 mcg/mL injection solution ADMINISTE R 1 ML UNDER THE SKIN ONCE A WEEK IN THE MORNING 12/01 completed Not Available Not Available Not Available warfarin 2 mg tablet 02/23 completed Not Available Not Available Not Available nitroglycer in 0.4 mg sublingual tablet DISSOLVE ONE TABLET UNDER TONGUE NEEDED FOR CHEST PAIN EVERY 5 MINUTES DIRECTED active Not Available Not Available No t Available aspirin 81 mg chewable tablet TK 1 T PO QD AT 8AM 12/01 completed Not Available Not Available Not Available hydrocortis one 2.5 % topical cream APPLY A THIN LAYER TWICE DAILY NEEDED UPTO 4 DAYS 04/12 completed Not Available Not Available Not Available enoxaparin 150 mg/mL subcutaneou s syringe 12/01 completed Not Available Not Available Not Available insulin syringe U-100 with needle 1 mL 31 gauge x 11/15 USE TO INJECT B12 ONCE A WEEK 12/01 completed Not Available Not Available Not Available hydroxyzine HCl 25 mg tablet Take 1 tablet every 8 hours by oral route as directed. active Not Available Not Available No t Available K-Phos-Neut ral 250 mg tablet TAKE 1 TABLET BY MOUTH THREE TIMES DAILY. 12/01 completed Not Available Not Available Not Available lisinopril 5 mg tablet 12/01 completed Not Available Not Available Not Available hydrochloro thiazide 25 mg tablet TAKE 1 TABLET BY MOUTH EVERY DAY active Not Available Not Available No t Available cefuroxime axetil 500 mg tablet 02/23 completed Not Available Not Available Not Available methylpredn isolone 4 mg tablets in a dose pack FOLLOW PACKAGE DIRECTION S 02/07 completed Not Available Not Available Not Available albuterol sulfate HFA 90 mcg/actuati on aerosol inhaler INHALE 2 PUFFS BY MOUTH EVERY 4 TO 6 HOURS NEEDED active Not Available Not Available No t Available celecoxib 100 mg capsule active Not Available Not Available Not Available ketoconazol e 2 % topical cream 04/12 completed Not Available Not Available Not Available lisinopril 40 mg tablet TAKE 1 TABLET BY MOUTH DAILY 12/01 completed Not Available Not Available Not Available cefdinir 300 mg capsule TAKE 1 CAPSULE BY MOUTH EVERY 12 HOURS FOR 10 DAYS 03/16 completed Not Available Not Available Not Available topiramate 100 mg tablet 12/01 completed Not Available Not Available Not Available fluticasone propionate 50 mcg/actuati on nasal spray,suspe nsion SHAKE LIQUID AND USE 2 SPRAYS IN EACH NOSTRIL EVERY DAY 12/01 completed Not Available Not Available Not Available finasteride 5 mg tablet 12/01 completed Not Available Not Available Not Available prazosin 2 mg capsule TAKE ONE CAPSULE BY MOUTH AT BEDTIME GENERIC EQUIVALEN T FOR MINIPRESS 02/23 completed Not Available Not Available Not Available diflorasone 0.05 % topical ointment 12/01 completed Not Available Not Available Not Available amoxicillin 875 mg-bigg m clavulanate 125 mg tablet TAKE 1 TABLET BY MOUTH EVERY 12 HOURS 12/01 completed Not Available Not Available Not Available oxycodone 5 mg tablet TAKE 1 TO 2 TABLETS BY MOUTH EVERY 6 HOURS NEEDED FOR PAIN active Not Available Not Available No t Available hydroxyzine pamoate 25 mg capsule TAKE 1 CAPSULE BY MOUTH EVERY NIGHT 12/01 completed Not Available Not Available Not Available neomycin-po lymyxin-hyd rocort 3.5 mg-10,000 unit/mL-1 % ear drops,susp SHAKE LIQUID AND INSTILL 2 DROPS TO LEFT EAR FOUR TIMES DAILY FOR 7 DAYS 12/01 completed Not Available Not Available Not Available cyclobenzap rine 5 mg tablet 12/01 completed Not Available Not Available Not Available clonazepam 0.25 mg disintegrat ing tablet DISSOLVE ONE TABLET BY MOUTH TWICE DAILY 12/01 completed Not Available Not Available Not Available clonazepam 0.5 mg disintegrat ing tablet active Not Available Not Available N ot Available metoprolol tartrate 25 mg tablet TK /2 T PO BID 12/01 completed Not Available Not Available Not Available fenofibrate 160 mg tablet TAKE 1 TABLET BY MOUTH EVERY DAY active Not Available Not Available No t Available pregabalin 100 mg capsule TAKE ONE CAPSULE BY MOUTH TWICE DAILY 12/01 completed Not Available Not Available Not Available ranolazine ER 500 mg tablet,exte nded release,12 hr active Not Available Not Available Not Available ranolazine ER 1,000 mg tablet,exte nded release,12 hr TAKE 1 TABLET BY MOUTH TWICE DAILY active Not Available Not Available No t Available potassium, sodium phosphates 280 mg-160 mg-250 mg oral powder packet Take 1 packet 3 times a day by oral route before meals for 90 days. 12/01 completed Not Available Not Available Not Available nebivolol 5 mg tablet TAKE 1 TABLET BY MOUTH EVERY DAY active Not Available Not Available No t Available oxycodone 10 mg tablet active Not Available Not Available Not Available vilazodone 20 mg tablet TAKE 1/2 TABLET BY MOUTH EVERY DAY FOR 1 WEEK THEN 1 TABLET BY MOUTH EVERY DAY WITH FOOD active Not Available Not Available No t Available Vascepa 1 gram capsule TAKE 2 CAPSULES BY MOUTH TWICE DAILY WITH FOOD. SWALLOW WHOLE AND DO NOT CHEW OR OPEN OR DISSOLVE OR CRUSH 12/01 completed Not Available Not Available Not Available Eliquis 5 mg tablet TAKE 1 TABLET BY MOUTH TWICE DAILY active Not Available Not Available No t Available Eliquis 2.5 mg tablet active Not Available Not Available No t Available Anoro Ellipta 62.5 mcg-25 mcg/actuati on powder for inhalation INHALE 1 PUFF BY MOUTH EVERY DAY 12/01 completed Not Available Not Available Not Available naloxone 4 mg/actuatio n nasal spray 12/01 completed Not Available Not Available Not Available Trintellix 5 mg tablet TK 1 T PO D 02/23 completed Not Available Not Available Not Available Trintellix 10 mg tablet TAKE 1 TABLET BY MOUTH DAILY 12/01 completed Not Available Not Available Not Available Ozempic 0.25 mg or 0.5 mg (2 mg/1.5 mL) subcutaneou s pen injector INJECT 0.25 MG SUBCUTANE OUSLY WEEKLY FOR 2 MONTHS THEN INCREASE TO 0.5 MG WEEKLY 12/01 completed Not Available Not Available Not Available Ubrelvy 50 mg tablet active Not Available Not Available No t Available ID NOW COVID-19 Test Kit TEST DIRECTED 12/01 completed Not Available Not Available Not Available Trelegy Ellipta 200 mcg-62.5 mcg-25 mcg powder for inhalation active Not Available Not Available N ot Available Ozempic 1 mg/dose (4 mg/3 mL) subcutaneou s pen injector INJECT 1 MG UNDER THE SKIN EVERY 7 DAYS 03/20 completed Not Available Not Available Not Available Vitals Date Recorded Body height Body mass index (BMI) Body weight Body temperature Heart rate Systolic And Diastolic Provider Name and Address Organization Details Last Updated DateTime 3 182.88 cm 42.5 kg/m2 997635. 57 g 97.4 [degF] 63 /min 122/72 mm[Hg] BALJIT Trujillo [place] [employer] [facility] 3 14:17:52 Date Recorded Body height Body mass index (BMI) Body weight Body temperature Provider Name and Address Organization Details Last Updated DateTime 12/15/2022 182.88 cm 43 kg/m2 084950.78 g 97.7 [degF] Bell Vann CMA [facility] 12/15/2022 14:31:40 Date Recorded Body height Body mass index (BMI) Body weight Body temperature Provider Name and Address Organization Details Last Updated DateTime 02/01/2023 182.88 cm 42.4 kg/m2 124501.41 g 97.6 [degF] Chana Toussaint RN [facility] 02/01/2023 16:47:16 Date Recorded Body height Body temperature Provider N nyla and Address Organization Details Last Updated DateTime 03/16/2023 182.88 cm 97.8 [degF] Chana Toussaint RN [facility] 03/16/2023 16:38:03 Date Recorded Body height Body temperature Respiratory rate Heart rate Systolic And Diastolic Provider Name and Address Organization Details Last Updated DateTime 3 182.88 cm 97.8 [degF] 14 /min 89 /min 127/76 mm[Hg] Chana Toussaint RN [facility] 3 09:06:13 Social History Question Answer Notes LastModified by Organizat ion Details LastModified Time Tobacco Smoking Status Never Smoker Not Available [facility] 08/31/2022 23:05:12 Do You Have An Advance Directive? No [id number] Information not available 08/31/2022 What Is Your Level Of Caffeine Consumption? Heavy [id number] Information not available 08/31/2022 In The 14 Days Before Symptom Onset, Have You Had Close Contact With A Laboratory-confirm ed COVID-19 While That Case Was Ill? No [id number] Information not available 08/31/2022 In The 14 Days Before Symptom Onset, Have You Had Close Contact With A Person Who Is Under Investigation For COVID-19 While That Person Was Ill? No [id number] Information not available 08/31/2022 What Type Of Diet Are You Following? REGULAR [id number] Information not available 08/31/2022 What Is The Highest Grade Or Level Of School You Have Completed Or The Highest Degree You Have Received? [id number] [id number] Information not available 08/31/2022 Do You Have A Medical Power Of Senior Physician? No [id number] Information not available 08/31/2022 What Is Your Relationship Status? [id number] Information not available 08/31/2022 Do You Use Your Seat Belt Or Car Seat Routinely? Yes [id number] Information not available 08/31/2022 Have You Recently Traveled Abroad? No [id number] Information not available 08/31/2022 Do You Have Any Dietary Restrictions? No [id number] Information not available 08/31/2022 Sex: Male Functional Status Question Answer Note LastModified by Organizat ion Details LastModified Time Do you use any illicit or recreational drugs? No [id number] 26 Information not available 08/31/2022 Do you or have you ever used any other forms of tobacco or nicotine? No [id number] 26 Information not available 08/31/2022 What is your level of alcohol consumption? None [id number] 26 Information not available 08/31/2022 What is your exercise level? None [id number] Information not available 08/31/2022 Mental Status Question Answer Note LastModified by Organizat ion Details LastModified Time Do you feel stressed (tense, restless, nervous, or anxious, or unable to sleep at night)? [id number] 6 Information not available 08/31/2022 Family History Relationship Description Onset Age of this Age Resolved Age Notes LastModified by Organization Details LastModified Time Father No current problems or disability [email or web address] Not available 03/16 08:57:38 Mother No current problems or disability [email or web address] Not available 03/16 08:57:39 Medical History Condition Response ARTHRITIS Y USE OF BLOOD THINNERS Y HEART ARRHYTHMIA Y INSOMNIA Y HIGH CHOLESTEROL / HYPERLIPIDEMIA Y SURGERY Y HAVE YOU BEEN HOSPITALIZED OR SEEN IN [facility] IN THE PAST YEAR ? Y KIDNEY DISEASE Y HYPERTENSION Y OBESITY Y ATRIAL FIBRILLATION Y Past Encounters Encounter ID Performer Location Encounter Start Date Encounter Closed Date Diagnosis/Indication Diagnosis SNOMED-CT Code Diagnosis ICD10 Code Diagnosis IMO Codes Diagnosis Note [id number] Philippe Harirson MD [facility] [address] [place] [address] 02/23/2021 00:00:00 02/23/2021 13:23:43 [id number] Philippe Harrison MD [facility] [address] [place] [address] 04/12/2021 00:00:00 04/12/2021 10:01:37 [id number] Philippe Harrison MD [facility] [address] [place], [place] [address] 06/29/2021 00:00:00 06/29/2021 12:04:51 [id number] Philippe Harrison MD [facility] [address] [place], [place] [address] 12/20/2021 00:00:00 12/20/2021 14:52:00 [id number] Philippe Harrison MD [facility] [address] [place] [address] 12/01/2022 13:54:29 12/01/2022 15:20:15 Well controlled type 2 diabetes mellitus 931382140 E11.9 a1c of 5.3% down from 6% range- continue on ozempic but uptitrate to 1 mg once weekly as patient tolerating well- he has lost over 40 pounds since past year when initiating therapy. Discussed carb counting and how to read food labels. Recommende d patient to utilize the diabetesfo ExactTarget.GiftLauncher from the ADA website to help with food preparatio n as this presents ideal carb content per meal so this will make carb counting much easier for patient. Recommende d he incorporat e natural insulin cath lab radiology technician s such as pears, apples, cinnamon, jay and sweet potatoes to help mobilize his endogenous insulin. Recommende d up to 150 minutes of moderate level activity/e xercise weekly. Hypothyroidism 79737653 E03.9 TSH and FT4 in range off thyroid replacemen t. Recommende d a thyroid supplement similiar to actalin by Dr. Tone Weller that contains, iodine, magnesium, manganese, carnitine and other elements to help maintain endogenous thyroid function and help to reduce swelling to take in meantime to help reduce time frame to burn out and to help with fatigue, hair thinning etc. Chronic sinusitis 941842 00 J32.9 refer to ENT to assess further if sinuplasty or other options would be available for patient. Essential hypertension 96741438 I10 Patient is on multiple medication s for blood pressure control. Would recommend he undergo a simple fasting blood test to screen for primary hyperaldos teronism and if found to be positive we could plan to transition to an aldosteron e marc and wean off multiple medication s. Patient was provided lab order to obtain fasting before 9 am. Will send for low dose dexa suppressio n testing to screen for hypercorti solic state. Spent up to 28 minutes preparing to see the patient (eg, review of tests), obtaining and/or reviewing separately obtained history, performing a medically appropriat e examinatio n and evaluation , counseling and educating the patient, ordering medication s, tests, along with documentin g clinical informatio n in the electronic health record, independen tly interpreti ng results and communicat ing results to the patient. RTC in 3-4 months. Patient was provided a handwritte n lab order which contains our fax number. If he chooses to go outside of the [facility] system to obtain labwork he was advised to provide our fax number and my informatio n to the lab he will be obtaining labwork from in order to have his labs properly forwarded over for me to review so there is no loss of follow up due to use of outside network. He was also advised to contact our clinic informing us that he has completed his labwork so we are aware we will need to reach out to the appropriat e laboratory to request his results be forwarded to us so I might have the ability to review and make further medical decision making in his case. He voiced understand ing. [id number] MD MORALES [facility] [address] [place] [address] 12/15/2022 14:08:09 12/15/2022 15:29:09 Thyroid nodule 213309308 E04.1 Pain of le ft temporomandibular joint [id number] [id number] M26.622 [id number] MD [facility] [address] [place], [place] [address] 02/01/2023 16:38:02 02/02/2023 14:30:33 Thyroid nodule 655337329 E04.1 [id number] MD [facility] [address] [place], [place] [address] 03/16/2023 16:25:25 03/16/2023 16:58:55 Papillary thyroid carcinoma [id number] C73 [id number] MD MORALES [facility] [address] [place] [address] 03/20/2023 08:56:03 03/20/2023 09:39:36 History of papillary adenocarcinoma of thyroid [id number] Z85.850 Patient had right lobectomy just a week ago- provided labwork to complete in a few weeks to see if he needs thyroid replacemen t - he had a very small foci of papillary thyroid ca measured at 5 mm with no extension and free to margins. No indication for GARCIA ablation therapy. Well contr olled type 2 diabetes mellitus 676879248 E11.9 a1c of 5.1% down from 6% range- he is no longer on ozempic as it made him ill. He lost over 50 pounds total and sugars overall in range. Discussed carb counting and how to read food labels. Recommende d patient to utilize the diabetesfo ExactTarget.GiftLauncher from the ADA website to help with food preparatio n as this presents ideal carb content per meal so this will make carb counting much easier for patient. Recommende d he incorporat e natural insulin cath lab radiology technician s such as pears, apples, cinnamon, jay and sweet potatoes to help mobilize his endogenous insulin. Recommende d up to 150 minutes of moderate level activity/e xercise weekly. Spent up to 25 minutes preparing to see the patient (eg, review of tests), obtaining and/or reviewing separately obtained history, performing a medically appropriat e examinatio n and evaluation , counseling and educating the patient, ordering medication s, tests, along with documentin g clinical informatio n in the electronic health record, independen tly interpreti ng results and communicat ing results to the patient. Patient can be followed by PCP - she/he is aware of my resignatio n and last day of April 14. If needed his/her PCP can refer patient to another endocrinol ogist in the area. All questions /concerns answered and refills necessary at visit today. Health Concerns Section Related Observation LastModified by Organization Detai ls LastModified Time None Recorded Concern Status LastModified by Organization Details LastModified Time None Recorded Advance Directives Directive N: Payers Insurance Date Sequence Insurance Name Policy Number Policy Fields Covered Member ID Fields Member ID Guarantor Name 03/20/2023 1 [place] Menendez [id number] [place] Menendez 03/19/2023 2 [place] [id number] [place] Menendez [id number] [place] Menendez Notes Date Note Type Note Provider Name and Address Organization Details Recorded Time 12/01/2022 text/html ROS as noted in the HPI 62 yo male comes in for follow up in management of hypothyroidism, well controlled type 2 DM and mixed dyslipidemia. last seen in December 2021 at that time we had patient modify his levothyroxine to 25 mcg on //Mon/ - and 50 mcg on Mon/Mon/Monday (patient is aware to take 2 of his 25 mcg tablets for this dosing. ). Patient no longer taking medication. we added ozempic 0.5 mcg once weekly. we added stating and continued fenofibrate and vascepa He is seeing a renal physician He has a 4.5 cm aneurysm on his aorta and getting monitored once a year. He is keeping his blood pressure in range. He is taking losartan, spironolactone, hctz and amlodipine for BP control. He has had recent abscess in his left ear and struggling with TMJ and pain/drainage of sinuses for the past year. labs from 09/22:a1c 5.3%TSH of 2.5 uIU/mlFT4 of 1.2 ng/dL192/209/46/113 glucose 91 mg/dLCr normalALT 49 U/L Philippe Harrison MD [address] [facility], [facility] [address], [place], [address], [facility] [employer] 12/01/2022 15:16:11 12/15/2022 text/html this patient reports a history of left-sided jaw pain for 4-5 months. He had a facial 1 CT demonstrating some left frontal soft tissue edema possibly consistent with inflammation. A thyroid ultrasound was recently done and this revealed a 3.3 cm right thyroid lobe nodule that was tie rads 4. he has TMJ arthralgia Steph Gipson MD [address], [address], [place], [address], [employer] 12/15/2022 15:25:37 02/01/2023 text/html this patient was unable to undergo successful needle biopsy because of calcification evidently and was told to have right thyroid lobectomy. Steph Gipson MD [address], [address], [place], [address], [facility] 02/01/2023 17:08:01 03/16/2023 text/html this patient had right thyroid lobectomy and the pathology indicated nodular hyperplasia but there was a focus of papillary thyroid carcinoma described as 0.5 cm. The margins were free Steph Gipson MD [address], [address], [place], [address], [facility] 03/16/2023 16:54:04 03/20/2023 text/html ROS as noted in the HPI 62 yo male comes in for follow up in management of well controlled type 2 DM (A1C of 5.1%) and hypertension. New found papillary thyroid ca-stage I. at last visit in December we increased ozempic to 1 mg weekly and continued thyroid support. we sent for full adrenal panel due to high blood pressure. patient was sent for u/s guided FNA of dominant right thyroid nodule- found to have papillary thyroid ca/went for right lobectomy - nodule measured 0.5 cm and free margins He had surgery last Monday for partial thyroidectomy. He is no longer taking ozempic as it made him sick- he hasn't had a soda in a long time. He has lost up to 50 pounds. He has lost over 50 pounds with ozempic and dietary changes. He follows Dr. Haines for management of CKD.labs from 01/19/23:microalbumi n 15 ug/mgacth 37 pg/mlmicroalbumin 15 ug/mgcr 1.74 mg/dLa1c 5.1%renin 0.51 ng/ml/hraldo 43 ng/mL123/106/43/61 Philippe Harrison MD [address], [facility] [address], [place], [address], [place] [facility] 03/20/2023 09:57:44
--- OUTSIDE RECORDS SUMMARY | 2025-06-19 15:28 | XMS_ITS | Encounter Summary ---
Author Organization [facility] Healthcare Address [address] [place] [address] Care Team Providers Care Tools And Parts Attendant Name Role Phone Nolvia Olivares MD, Butch Cross Primary Care Provide r Yessica Worthy MD Unavailable [phone] Tonny Yoon MD Unavailable [phone] Ajay Downs MD Unavailable [phone] Grey Hand RN Unavailable [phone] Kodi Griggs MD Unavailable [phone] Reason for Visit * Reason Onset Date Comments Joint Pain 06/19/2025 Insomnia 06/19/2025 Encounter Details Date Type Department Care Team (Late st Contact Info) Description 06/19/2025 Nurse Triage [facility] Medical Group Primary Care [address] [place] [phone] Tammie Lei, LEBRON Social History Tobacco Use Types Packs/Day Years Used Date Smoking Tobacco: Never Passive Smoke Exposure: Never Smokeless Tobacco: Never Alcohol Use Standard Drinks/Week Comments Never 0 (1 standard drink = 0.6 oz pur e alcohol) [facility] Utilities Answer Date Recorded In the past 12 months has [employer] electric, gas, oil, or water company threatened [...] often do you attend chur ch or latter day services? Never 11/11/2024 Do you belong to any clubs o r organizations such as anabaptism groups, unions, fraternal or athletic groups, or [...] place to sleep or slept in a alf (including now)? No 11/18/2023 PHQ-9 Answer Date [...] were you homeless or living in a alf (including now)? 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 Gender Identity Not on file Sexual Orientation Not on file documented as of this encounter Miscellaneous Notes * Telephone Encounter - Tammie Lei RN - 06/19/2025 9:00 AM CST Reason for Conversation Joint Pain and Insomnia Background Pt states he cannot sleep, was on Oxycodone for a while, recently got off Oxycodone due to having problems breathing, has RA pain that wont let him sleep, unable to get his infusion until he sees Delivery Technician and they canceled his appointment, joints hurt constant joint pain 6.5/10 pain level used ice on back, neck, and joints to help last night, has Loop recorder and felt heart palpations lastnight, BP 125/75 pulse 60+ last night, when he gets real tired he gets heart palpitations, has rareform of PVCs, does okay if not tired. Pt states he is requesting medication hydrocodone. Pt denies feeling weak or faint, confusion, sweating, lightheaded, chest pain, palpitations now. Hx HTN, PVC, NSVT, CAD, HTN, NAFLD, RA, CPS, Brain TIA. Disposition Call Transferred to PCP Now. RN sent secure chat to PCP-He needs to take tylenol 650 mg (or 500 mg is fine) three times a day schedule until tomorrow appointment. RN scheduled SDA tomorrow 11:30. Pt verbalized understanding of PCP orders. Care advice: Healthy diet, good sleep environment, avoid caffeine, alcohol, and caffeine. Call back if: * Chest pain, lightheadedness or difficulty breathing occurs * Heart beating over 140 beats / minute * More than 3 extra or skipped beats / minute * You become worse. Pt verbalizes understanding and is agreeable with this plan. Reason for Disposition Wearing a electronic device monitor (e.g., cardiac event, Holter) Protocols Used Heart Rate and Heartbeat [id number] RTISING INSERTER * Telephone Encounter - Jasmyn Newberry RN - 06/19/2025 8:35 AM ADVERTISING INSERTER Regarding: heart palpations and inability to sleep ----- Message from Grey Kingston sent at 06/19/2025 8:33 AM ADVERTISING INSERTER ----- Symptom Based Call Chief Complaint(s): heart palpations and inability to sleep Duration: last night for heart palpations and inability to sleep - few weeks What type of symptom(s) is the patient experiencing? Red Flag. Is the patient concerned they are experiencing a medical emergency requiring an ambulance? No Additional Comments: pt said he cannot sleep, , was on oxycodone for a while, recently got off it, pt has RA pain, wont let him sleep. He can't get his infusion until he sees . He said he cannot see the doctor bc they just cancelled his appt. HIs joints hurt, constant pain heart palpations start when he cant sleep. Pt seeking medication to help him get out of pain. Said hydrocodone works for him Does message need to be routed? Yes-Action Needed RTISING INSERTER documented in this encounter Plan of Treatment [...] on filedocumented in this encounter Care Teams Tools And Parts Attendant Relationship Specialty Start Date End Date Butch De Souza Jr., MD [address] [place] [address] PCP - General Internal Medicine 06/17/21 [place] [address] [place] [address] [address] [place] [address] Referring Physician Rheumatology 06/17/21 [place] [address] [place], [place] [id number] Consulting Physician Gastroenterology 06/17/21 [place] [address] [place] [address] Consulting Physician Cardiovascular Disease 07/09/24 Grey Hand RN [address] [place] [address] [address] [place] [address] Immigration Law Specialist 08/12/24 [place] [address] [address] [place] [address] Consulting Physician Pulmonary Disease 12/10/24 documented as of this encounter
--- OUTSIDE RECORDS SUMMARY | 2025-06-19 15:28 | XMS_ITS | Encounter Summary ---
Author Organization [facility] Address [address] [place] [address] Care Team Providers Care Maxillofacial Prosthodontist Name Role Phone Swathi Golden RN Unavailable Unavailab Heydi Razo MD Primary Care Provider Heydi Hood MD Primary Care Provider Nolvia Olivares MD, Butch Cross Primary Care Provide r Sheri Mac MD Unavailable Yessica Worthy MD Unavailable [phone] Tonny Yoon MD Unavailable Cortney García RN Unavailable Ajay Downs MD Unavailable [phone] Grey Hand RN Unavailable Kodi Griggs MD Unavailable Encounter Details Date Type Department Care Team (Late st Contact Info) Description 11/06/2017 Orders Only [facility] Information Management [address] [place] [id number] Scanning, Provider Social History Tobacco Use Types Packs/Day Years Used Date Smoking Tobacco: Never Smokeless Tobacco: Never Alcohol Use Standard Drinks/Week Comments No 0 (1 standard drink = 0.6 oz pur e alcohol) Sex and Gender Information Value Date Recorded Sex Assigned at Not on file Legal Sex Male 11:58 PM FLIGHT OPERATIONS COORDINATOR Gender Identity Not on file Sexual Orientation [...] COVID: Suspected 06/14/2021 06/14/2021 06/14/2021 7:24 PM FLIGHT OPERATIONS COORDINATOR COVID: Suspected 01/16/2022 01/16/2022 01/16/2022 7:20 PM CDT COVID: Suspected 08/22/2022 08/22/2022 08/22/2022 9:42 AM FLIGHT OPERATIONS COORDINATOR COVID: Suspected 08/04/2024 08/04/2024 08/04/2024 3:41 PM FLIGHT OPERATIONS COORDINATOR COVID: Suspected 08/05/2024 08/05/2024 08/05/2024 1:23 PM FLIGHT OPERATIONS COORDINATOR Rhino/Enterovirus 11/08/2024 11/08/2024 11/15/2024 3:05 AM CDT documented as of this encounter Care Teams Maxillofacial Prosthodontist Relationship Specialty Start Date End Date Heydi Hood MD [address] [place] [address] PCP - General Family Medicine 03/03/21 06/13/21 Heydi Hood MD [address] [place] [address] PCP - General 06/14/21 06/16/21 Butch De Souza Jr., MD [address] [place] [address] PCP - General Internal Medicine 06/17/21 Swathi Golden RN Registered Nurse 04/15/19 01/18/23 Sheri Mac MD [address] [address] Endocrinology 06/17/21 12/09/24 Yessica Worthy MD [address] [facility] [address] [place] [address] Referring Physician Rheumatology 06/17/21 [place] [address] [place] [address] Consulting Physician Gastroenterology 06/17/21 Cortney García RN [address] [place] [address] [facility] [address] [place] [address] Day Care Provider 11/09/23 05/30/24 Ajay Downs MD [address] [place] [address] [address] [place] [address] Consulting Physician Cardiovascular Disease 07/09/24 Grey Hand, LEBRON [address] [place] [address] [address] [place] [address] Day Care Provider 08/12/24 [place] [address] [place] [address] Consulting Physician Pulmonary Disease 12/10/24 documented as of this encounter
--- OUTSIDE RECORDS SUMMARY | 2025-06-19 15:28 | XMS_ITS | Encounter Summary ---
Author Organization [facility] Address [address] [place] [address] Phone Care Team Providers Care Passenger Locomotive Engineer Name Role Phone Nolvia Olivares MD, Butch Cross Primary Care Provide r Yessica Worthy MD Unavailable [phone] Tonny Yoon MD Unavailable [phone] Ajay Downs MD Unavailable [phone] Grey Hand RN Unavailable Kodi Griggs MD Unavailable Encounter Details Date Type Department Care Team (Late st Contact Info) Description 04/17/2025 Results Follow-Up [facility] Medicine Cardiology [address] [facility] Advanced Medicine 8th [place] [address] [place] [address] Hyacinth Burgess, BARNWORKER GROOM [address] [facility] [address] [place] [address] ECG 12 lead Social History Tobacco Use Types Packs/Day Years Used Date Smoking Tobacco: Never Passive Smoke Exposure: Never Smokeless Tobacco: Never Alcohol Use Standard Drinks/Week Comments Never 0 (1 standard drink = 0.6 oz pur e alcohol) [facility] Utilities Answer Date Recorded In the past 12 months has [employer] electric, gas, oil, or water company threatened [...] often do you attend chur ch or advent services? 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 ATTORNEY Gender Identity Not on file Sexual Orientation [...] on filedocumented in this encounter Care Teams Passenger Locomotive Engineer Relationship Specialty Start Date End Date Butch De Souza Jr., MD [address] [place] [address] PCP - General Internal Medicine 06/17/21 Yessica Worthy MD [address] [facility] [address] [place] [address] Referring Physician Rheumatology 06/17/21 [place] [address] [place] [address] Consulting Physician Gastroenterology 06/17/21 [place] [address] [place] [address] Consulting Physician Cardiovascular Disease 07/09/24 Grey Hand, LEBRON [address] [place] [address] [address] [facility] [address] [place] [address] Foreign Policy Officer 08/12/24 [place] [address] [facility] [address] [place] [address] Consulting Physician Pulmonary Disease 12/10/24 documented as of this encounter
--- OUTSIDE RECORDS SUMMARY | 2025-06-19 15:28 | XMS_ITS | Clinical Summary ---
Author Organization [facility] Address [address] [place] [address] Phone Care Team Providers Care Production Control Pegboard Clerk Name Role Phone CHRIS MALAVE DO Primary Care Provider [phone] CRANJORGE D.O.CHRIS Unavailable [phone] Reason for Visit and Chief Complaint visit for: the patient is here to discuss his htnwhich he take snorvasc usually well controlled. healso stated that he feels sinus pain. he did labs but they were not available during the visit ~h ehas elevated lipids which he takes atorvastatin - The Chief Complaint is: 3 month check up. He says he has sinus with green drainage, he doesn't take otc because he doesn't know what is safe to take Problems Includes: Problems addressed during this encounter and other active Problems Current Visit Onset Date Resolved Date Provider Conditio n Status Familial Hypertriglyceridemia 01/11/2018 CHRIS MALAVE D.O. Active Last Documented On 8 2:28PM ; [facility] Pure Hypercholesterolemia 05/18/2012 CHRIS West RANCER D.O. Active Last Documented On 4 4:16PM ; [facility] Past Visits Onset Date Resolved Date Provider Condition Status Chronic Obstructive Pulmonary Disease 03/18/2019 CHRIS MALAVE D.O. Active Last Documented On 9 2:50PM ; [facility] Pneumonia 11/19/2018 CHRIS MALAVE D.O. Act azar Last Documented On 9 4:06PM ; [facility] Sleep apnea, unspecified 09/28/2018 CHRIS A CR ANCER D.O. Active Last Documented On 9 3:48PM ; [facility] Acute pain due to trauma 02/28/2018 CHRIS A CR ANCER D.O. Active Last Documented On 8 4:14PM ; [facility] Cervicalgia 02/28/2018 CHRIS A CRANCER D.O. Ac tive Last Documented On 8 2:25PM ; [facility] Rheumatoid Arthritis Multiple Sites 01/11/2018 CHRIS A CRANCER D.O. Active Last Documented On 8 2:22PM ; [facility] Hypoxemia 07/13/2017 CHRIS A CRANCER D.O. Act azar Last Documented On 8 9:13AM ; [facility] Migraine Headache Without In tractable Migraine Without Status Migrainosus 07/13/2017 CHRIS A SUPERVISOR [employer]CE [employer]JUST[employer] NCER D.O. Active Last Documented On 8 9:13AM ; [facility] Arthralgia - Shoulder Region Left 01/12/2017 LE STER A CRANCER D.O. Active Last Documented On 7 3:34PM ; [facility] Low Back Pain 09/12/2016 CHRIS A CRANCER D.O. Active Last Documented On 7 1:37PM ; [facility] Myalgia 04/01/2015 CHRIS A CRANCER D.O. Act azar Last Documented On 5 10:55AM ; [facility] Transient Ischemic Attack (T ia) Without Residual Deficits 06/18/2014 CHRIS A CRANCER D.O. Active Last Documented On 4 5:24PM ; [facility] Celiac Disease 05/02/2014 CHRIS A CRANCER D.O. Active Last Documented On 4 1:38PM ; [facility] Hematuria 09/05/2013 CHRIS A CRANCER D.O. Act azar Last Documented On 4 10:43AM ; [facility] Note: Unchanged Atrial Fibrillation 05/18/2012 CHRIS A CRANCER D.O. Active Last Documented On 4 4:16PM ; [facility] Depressive Disorder, Nos 05/18/2012 CHRIS A CR ANCER D.O. Active Last Documented On 4 4:16PM ; [facility] Plan of Treatment No Plan of Treatment Recorded Assessments Includes: Assessments from this encounter Findings - [J01.80 - Other acute sinusitis] Acute sinusitis - Last Documented On 11/21/2019 4:11PM ; [facility] - [I10 - Essential (primary) hypertension] Benign essential hypertension - Last Documented On 11/21/2019 4:11PM ; [facility] - [E78.00 - Pure hypercholesterolemia, unspecified] Pure hypercholesterolemia - Last Documented On 11/21/2019 4:11PM ; [facility] - [E78.1 - Pure hyperglyceridemia] Familial hypertriglyceridemia - Last Documented On 11/21/2019 4:11PM ; [facility] Medical Equipment - Implanted Devices Includes: Current Devices No Medical Equipment Recorded Medications Includes: Medications discussed during this encounter and other current Medications New / Renewed during this visit CHRIS MALAVE D.O. on 11/13/2019 Amoxicillin-Pot Clavulanate 875-125 MG Oral Tablet Provider: CHRIS MALAVE D.O. 10 day supply: 20 tablet, 0 refills Diagnosis: Acute sinusitis, unspecified 1 PO BID x 10 DAYS Pharmacy: [facility]aren Arellano - [address] [facility], [phone] - Last Documented On 01/10/2020 2:58PM By ASHISH SMILEY ; [facility] Fluticasone Propionate 50 MCG/ACT Nasal Suspension Provider: CHRIS Rubio D.O. 30 day supply: 1 bottle, 0 refills Diagnosis: Acute sinusitis, unspecified 2 sprays in each nostril once a day Pharmacy: Daren Gates - [address] [facility], [phone] - Last Documented On 0 10:32AM By Carolina Velazco MA ; [facility] Current Medications (continue as prescribed) Potassium Chloride Torri ER 2 0 MEQ Oral Tablet Extended Release 09/21/2020 Provider: CHRIS MALAVE D.O. Diagnosis: TAKE 1 TABLET BY MOUTH DAILY Last Documented On 09/21/2020 4:02PM By ASHISH SMILEY ; [facility] Fluticasone Propionate 50 MCG/ACT Nasal Suspension 08/13/2020 Provider: CHRIS Rubio D.O. Diagnosis: Oth disrd of Eus tachian tube, unspecified ear 2 sprays each nostril once daily. Last Documented On 08/13/2020 2:29PM By JOSE DHILLON ; [facility] Isosorbide Mononitrate ER 30 MG Oral Tablet Extended Release 24 Hour 08/13/2020 Provider: Diagnosis: 1 qdCardiology Last Documented On 08/13/2020 2:17PM By ASHISH SMILEY ; [facility] Vascepa 1 GM Oral Capsule 08/13/2020 Provider: Diagnosis: 2 po BID Last Documented On 08/13/2020 2:20PM By ASHISH SMILEY ; [facility] Leflunomide 10 MG Oral Tablet 08/13/2020 Provider: Diagnosis: 1/2 tab qd Last Documented On 08/13/2020 2:19PM By ASHISH SMILEY ; [facility] SEROquel 300 MG Oral Tablet 08/13/2020 Provider: Diagnosis: 1 qdPsychiatrist Last Documented On 08/13/2020 2:16PM By ASHISH SMILEY ; [facility] Atorvastatin Calcium 40 MG Oral Tablet 08/13/2020 Pr ovider: Diagnosis: 1 qdCardiology Last Documented On 08/13/2020 2:15PM By ASHISH SMILEY ; [facility] Aspirin Adult Low Dose 81 MG Oral Tablet Delayed Relea se 05/19/2020 Provider: Diagnosis: 1 po qdotc Last Documented On 05/19/2020 9:05AM By ASHISH SMILEY ; [facility] HYDROcodone-Acetaminophen 10-325 MG Oral Tablet 2019 Provider: Diagnosis: 1 every 8 hours. Last Documented On 08/14/2019 1:06PM By Carolina Velazco MA ; [facility] Nitrostat 0.4 MG Sublingual Tablet Sublingual 04/11/2019 Provider: CHRIS Andre Diagnosis: Chest pain, unsp ecified as directed ONE TAB AT ONSET OF PAIN AND MAY REPEAT EVERY 5-10 MIN UNTIL 3 DOSE OR RELIEF, TO ER IF THIRD DOSE NEEDED Last Documented On 04/11/2019 12:30PM By DEBBIE SMILEY ; [facility] Naproxen Sodium ER 500 MG Oral Tablet Extended R elease 24 Hour 03/14/2019 Provider: Diagnosis: 1-2 tabs po daily as needed for BENDER Last Documented On 03/14/2019 1:06PM By RBISEIDA ONEILL LPN ; [facility] Icddd-6-Nfdp Eth Est (Dietary) 1 GM Oral Capsule 03/14 Provider: Diagnosis: Take 2 caps in the a.m. and 2 in the p.m. Last Documented On 03/14/2019 1:11PM By BRISEIDA ONEILL LPN ; [facility] Prazosin HCl 2MG Oral Capsule 02/28/2018 Provider: Diagnosis: 2 mg at bedtime, Psychiatrist, Last Documented On 8 3:58PM By SHOLA SMILEY ; [facility] Cyanocobalamin 2500MCG Sublingual Tablet, sublingual 0 11/14/2017 Provider: Diagnosis: sublingual, every morning Last Documented On 8 10:40AM By SHOLA SMILEY ; [facility] Ascorbic Acid 500MG Oral Tablet 11/14/2017 Provider: Diagnosis: Last Documented On 8 10:39AM By SHOLA SMILEY ; [facility] Fenofibrate 160MG Oral Tablet 11/14/2017 Provider: Diagnosis: Last Documented On 8 10:38AM By SHOLA SMILEY ; [facility] AmLODIPine Besylate 10MG Oral Tablet 11/14/2017 Prov ider: Diagnosis: Last Documented On 8 10:36AM By SHOLA SMILEY ; [facility] SEROquel 300MG Oral Tablet 09/28/2017 Provider: Diagnosis: Take 2 at bedtime Last Documented On 8 1:06PM By SHOLA SMILEY ; [facility] Magnesium 250MG Oral Tablet 07/21/2017 Provider: Diagnosis: Take 2 in the am Last Documented On 8 3:43PM By SHOLA SMILEY ; [facility] Vitamin B-2 100MG Oral Tablet 04/21/2017 Provider: Diagnosis: Take 2 in the morning and 2 at bedtime Last Documented On 7 11:45AM By SHOLA SMILEY ; [facility] Leflunomide 20MG Oral Tablet 04/21/2017 Provider: Diagnosis: Take 1 in the morning Last Documented On 7 11:44AM By SHOLA SMILEY ; [facility] Gabapentin 300MG Oral Capsule 04/21/2017 Provider: Diagnosis: Take 1 in the morning and 2 at bedtime Last Documented On 7 11:43AM By SHOLA SMILEY ; [facility] Sotalol HCl 80MG Oral Tablet 04/21/2017 Provider: Diagnosis: Take 1/2 at bedtime Last Documented On 7 11:46AM By SHOLA SMILEY ; [facility] Melatonin 5MG Oral Tablet 04/21/2017 Provider: Diagnosis: Take 2 at bedtime Last Documented On 7 11:48AM By SHOLA SMILEY ; [facility] Vitamin D3 2000UNIT Oral Tablet 04/21/2017 Provider: Diagnosis: Take 2 in the morning Last Documented On 7 11:48AM By SHOLA SMILEY ; [facility] Topamax 100MG Oral Tablet 01/12/2017 Provider: Diagnosis: 1 po BID-Neurology fills this Last Documented On 01/12/2017 3:39PM By ASHISH SMILEY ; [facility] Warfarin Sodium 5 MG Tablet 07/22/2015 Provider: Diagnosis: Last Documented On 07/22/2015 8:47AM By Ximena SMILEY ; [facility] Medications Administered Includes: Administered Medications from this encounter No Administered Medications Recorded Vital Signs Includes: Vital Signs from this encounter Vital Name 11/13/2019 10:11A 11/13/2019 09: 57A Blood Pressure Sitting (mmHg) 158/80 Blood Pressure Sitting L 176/100 Pulse Rate-Sitting (bpm) 72 Respiration Rate (breaths/min) 20 Temp-Oral (F) 97.8 Height (in) 76 Weight (lb) 344 Body Mass Index (kg/m2) 41.9 Body Surface Area (m2) 2.8 Note: recheck Last Documented: On 11/13/2019 10:11A M ; [facility] On 11/13/2019 10:08AM ; [facility] Results Includes: Results discussed during this encounter No Results Recorded For Specified Dates History of Present Illness Includes: History of Present Illness from this encounter JESSE RODRIGUEZ is a 59 year old male. - No systemic symptoms. - Sinus pain. - No cardiovascular symptoms. - No pulmonary symptoms. Social History Description Last Updated Non-smoker 11/13/2019 Last Documented On 0 4:11PM ; [facility] Smoking status : Never smoker 03/14/2019 Last Documented On 0 9:57AM ; [facility] Currently 01/23/2014 Last Documented On 0 9:57AM ; [facility] No consumption of alcohol 01/23/2014 Last Documented On 0 9:57AM ; [facility] No tobacco use 01/23/2014 Last Documented On 0 9:57AM ; [facility] Not a current smoker 01/23/2014 Last Documented On 0 9:57AM ; [facility] Not using alcohol 01/23/2014 Last Documented On 0 9:57AM ; [facility] Not using drugs 01/23/2014 Last Documented On 0 9:57AM ; [facility] Procedures and Surgical History Includes: Procedures from this encounter Procedures Code Diagnosis Performing Provider Service L ocation Service Date plan of care reviewed and agreed to the patient should continue meds, and follow his blood pressure Last Documented On 0 6:34PM ; [facility] review of medications documented 1160F Last Documented On 0 10:08AM ; [facility] Medical History Includes: Medical History addressed during this encounter Description Last Updated Pt does not get blood pressure checked a t other facility 01/20/2010 Last Documented On 0 9:57AM ; [facility] AFIB,RA,DEPRESSION,ELEVATED LIVER ENZYME S 09/17/2009 Last Documented On 0 9:57AM ; [facility] History of coronary artery disease 09/17 Last Documented On 0 9:57AM ; [facility] History of hyperlipidemia 09/17/2009 Last Documented On 0 9:57AM ; [facility] Exposure to dust 12/11/2008 Last Documented On 0 9:57AM ; [facility] Surgery BACK SURGERY 12/11/2008 Last Documented On 0 9:57AM ; [facility] Family History Includes: Family History addressed during this encounter Description Last Updated Family history reviewed - unchanged sin e last visit 09/18/2015 Last Documented On 0 9:57AM ; [facility] Sororal history of coronary artery disea se 11/04/2014 Last Documented On 0 9:57AM ; [facility] Family medical history : No significant family history 11/03/2014 Last Documented On 0 9:57AM ; [facility] Sister SEVERE HEART ARYTHMIA ? 12/11/2008 Last Documented On 0 9:57AM ; [facility] Review of Systems Includes: Review of Systems from this encounter Systemic: Not feeling poorly (malaise). No edema. Head: Headache occasional headache from sinus, sinus pain, and sinus pressure. Otolaryngeal: Postnasal drip and nasal passage blockage (stuffiness). Cardiovascular: No chest pain or discomfort. Pulmonary: [...] ctive Last Documented On 0 1:06PM ; [facility] Imitrex Allergy rapid HR 04/23/2010 Active Last Documented On 0 1:06PM ; [facility] Abilify Allergy 04/23/2010 Active Last Documented On 0 1:06PM ; [facility] Encounters Encounter Provider Location Date Check-In Time Check-Out Time Diagnosis 3 MONTH TARIK MALAVE D.O. [facility] 020 9:51AM 10:38AM Pure Hypercholestero lemia,Familial Hypertriglyceri demia,Sinusitis Acute,Essential Hypertension Benign Insurance Includes: Active Insurance Policies Plan Name Member ID Group # Subscriber Relationship Effect azar Dates 1 - MEDICARE PART A CLAIMS/NGS [id number] KINDRA Castañeda 12/01/2009 - Unknown 2 - [facility] [id number] KINDRA Castañeda Clinical Notes Includes: Clinical Notes from this encounter No Clinical Notes Recorded
--- OUTSIDE RECORDS SUMMARY | 2025-06-19 15:29 | XMS_ITS | Clinical Summary ---
Author Organization [facility] Address [address] [place] [address] Phone Care Team Providers Care Junior Underwriter Name Role Phone Montana Gayle DO Primary Care Provider [phone] Allergies Active Allergy Reactions Criticality Noted Date [...] daily as needed for Muscle spasms. Active HYDROcodone-snuny taminophen (NORCO) 5-325 MG Tablet Take 2 Tabs by mouth every 6 hours as needed for Moderate or more severe pain. Active APAP-CODEINE & DIET MANAGE MA PO Take 300 mg by mouth 3 [...] Treatment Not on file Insurance MEDICARE [facility] Care Teams Junior Underwriter Relationship Specialty Start Date End Date Montana Gayle DO [address] [place] [id number] PCP - General Internal Medicine 09/17/18
--- OUTSIDE RECORDS SUMMARY | 2025-06-19 15:29 | XMS_ITS | Clinical Summary ---
Author Organization [facility] Address [address] [place] [address] Care Team Providers Care Jai Alai Player Name Role Phone Ajay Childs MD Unavailable [phone] Nolvia Olivares MD, Butch Sanches Primary Care Provider Source Comments [facility],non-owned Affiliates and Associated Physician Practices is amultiple site organization consisting of ambulatory clinics and hospital sitesin [place], [place], [place] and [place]. This disclosure is being madepursuant to the Care Everywhere program and may not contain all information available regarding this patient. Last updated 18.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 Not hard at all 06/02/2023 [facility] - Occupational Stress [...] place to sleep or slept in a custodial (including now)? No 06/02/2023 Sex and Gender Information Value Date Recorded Sex Assigned at Not on file Legal Sex Male 6:06 AM [employer]CISION [facility] Gender Identity Not on file Sexual Orientation Not on file Last Filed Vital Signs Vital Sign Reading Time Taken Comments Blood Pressure 128/74 06/21/2023 5:27 PM [employer] Pulse 74 06/21/2023 5:27 PM [facility] Temperature 36.4 C (97.5 F) 06/21/2023 5:27 PM [employer] [facility]ER Respiratory Rate 17 06/21/2023 5:27 PM [facility] Oxygen Saturation 98% 06/21/2023 5:27 PM [facility] Inhaled Oxygen Concentration - - Weight 141.3 kg (311 lb 9.6 oz) 06/02/2023 7:21 AM [facility]ER Height 190.5 cm (6' 3) 06/02/2023 7:21 AM [facility]ER Body Mass Index 38.95 06/02/2023 7:21 AM [facility]ER Plan of Treatment Health Maintenance Due Date [...] Tdap) 02/23/2025 02/23/2015 COVID-19 VACCINE (1 - 2024- season) 2025 INFLUENZA VACCINE (#1) 2025 0, [...] this topic Medical Devices Implanted Type Area Clinical Resource Manager Device Identifier Shelf Expiration Date Model / Serial / Lot Graft Tissue Drgn + Bvn Clgn Mtrx 2x2in Implanted:Qty: 1 on 09/13/2018 by Jackson Norwood MD at [facility] [employer] 07/02/2021 [id number]-[id number] / / [id number] Cmpnt Fem Kn Rt Cr Cmnt Prm Vngrd Intlk Implanted:Qty: 1 on 03/13/2023 by Miko Pérez MD at [facility] Right: Knee [employer] 12/13/2032 [id number] / / [id number] Cmnt Bone Plc R 40gm Grn Implanted:Qty: 1 on 03/13/2023 by Miko Pérez MD at [facility] Right: Knee [employer] 07/02/2025 [id number] / / [id number] Cmnt Bone Plc R 40gm Grn Implanted:Qty: 1 on 03/13/2023 by Miko Pérez MD at [facility] Right: Knee [employer] 07/02/2025 [id number] / / [id number] Tray Tib 83mm As Mx Kn Intlk Cocr 1 Pc Implanted:Qty: 1 on 03/13/2023 by Miko Pérez MD at [facility] Right: Knee [employer] 02/08/2032 [id number] / / [id number] Cmpnt Ptlr Std 37mm 3 Pg Kn Ser A Implanted:Qty: 1 on 03/13/2023 by Miko Pérez MD at [facility] Right: Knee [employer] 03/21/2027 [id number] / / [id number] Pancho Brng 11g14wq Vivacit-E Kn Ant Stab Implanted:Qty: 1 on 03/13/2023 by Miko Pérez MD at [facility] Right: Knee [employer] 05/17/2027 [id number] BILL ONLY / / [id number] Tray Tib 83mm As Mx Kn Intlk Cocr 1 Pc Implanted:Qty: 1 on 06/02/2023 by Miko Pérez MD at [facility] Left: Knee [employer] 11/08/2032 [id number] / / [id number] Cmpnt Fem Kn Lt Cr Cmnt Prm Vngrd Intlk Implanted:Qty: 1 on 06/02/2023 by Miko Pérez MD at [facility] Left: Knee [employer] 04/08/2033 [id number] / / [id number] Cmpnt Ptlr Std 34mm 3 Pg Kn Ser A Implanted:Qty: 1 on 06/02/2023 by Miko Pérez MD at [facility] Left: Knee [employer] 06/29/2027 [id number] / / [id number] [employer] 32qzg25zl Vngrd Arcm Kn Ant Stab Implanted:Qty: 1 on 06/02/2023 by Miko Pérez MD at [facility] Left: Knee [employer] 11/19/2024 [id number] BILL ONLY / / [id number] Cmnt Bone Plc R 40gm Grn Implanted:Qty: 1 on 06/02/2023 by Miko Pérez MD at [facility] Left: Knee [employer] 08/30/2025 [id number] / / [id number] Cmnt Bone Plc R 40gm Grn Implanted:Qty: 1 on 06/02/2023 by Miko Pérez MD at [facility] Left: Knee [employer] 10/30/2025 [id number] / / [id number] Procedures Procedure Name Priority Date/Time Associated Diagnosis Comments BASIC METABOLIC PANEL (CALCIUM TOTAL) STAT 06/02/2023 7:31 AM [facility]ER Preop examination from Last 3 Months or Most Recently Relevant to Health Maintenance Results * (ABNORMAL) BASIC METABOLIC PANEL (CALCIUM TOTAL) (06/02/2023 7:31 AM PRECISION [facility]YER) Pathologist [facility] Glucose 86 70 - 105 mg/dL 06/02/2023 7:57 AM [facility] Sodium 139 136 - 145 mmol/L 06/02/2023 7:57 AM [facility] Potassium 3.2(L) 3.5 - 5.1 mmol/L 06/02/2023 7:57 AM [facility] Chloride 110(H) 98 - 107 mmol/L 06/02/2023 7:57 AM [facility] CO2 20(L) 22 - 29 mmol/L 06/02/2023 7:57 AM [facility] Calcium 8.6 8.4 - 10.4 mg/dL 06/02/2023 7:57 AM [facility] Anion Gap 9 6 - 16 mmol/L 06/02/2023 7:57 AM [facility] BUN 18 7 - 26 mg/dL 06/02/2023 7:57 AM [facility] Creatinine 0.93 0.72 - 1.25 mg/dL 06/02/2023 7:57 AM [facility] eGFR by CKD-EPI >90 >=90 mL/min/1.7 3 m2 06/02/2023 7:57 AM [facility] Blood BLOOD SPECIMEN / Unknown Venipuncture / Unknown 06/02/2023 7:31 AM [facility]ER 06/02/2023 7:42 AM [facility] Jeanie Valdovinos DO LAB - CHEMISTRY ORDERABLES Jyothi durant Result [facility] [address] [place] [address] from Last 3 Months or Most Recently Relevant to Health Maintenance Insurance MEDICARE [facility] MEDICARE [facility] MEDICARE [employer] MEDICARE ADVANTAGE Advance Directives * Full Code (Latest Code [...] 11:27 PM 09/13/2018 11:27 PM Care Teams Jai Alai Player Relationship Specialty Start Date End Date Butch De Souza Jr., MD [address] [place] [id number] PCP - General Internal Medicine 02/21/23 Ajay Childs MD [address] [place] [id number] Cardiovascular Disease 04/19/19
--- OUTSIDE RECORDS SUMMARY | 2025-06-19 15:30 | XMS_ITS ---
Author Organization [facility] Address [address] [place] [address] Phone Care Team Providers Care Electromechanical Technician Name Role Phone CHRIS MALAVE DO Primary Care Provider [phone] CRANJORGE D.O.CHRIS Unavailable [phone] Problems Includes: Active, inactive, and resolved Problems All Visits Onset Date Resolved Date Provider Condition S tatus Chronic Obstructive Pulmonary Disease 03/18/2019 CHRIS A CRANCER D.O. Active Last Documented On 9 2:50PM ; [facility] Pneumonia 11/19/2018 CHRIS A CRANCER D.O. Act azar Last Documented On 9 4:06PM ; [facility] Sleep apnea, unspecified 09/28/2018 CHRIS Verena POTTS ANCER D.O. Active Last Documented On 9 3:48PM ; [facility] Acute pain due to trauma 02/28/2018 CHRIS Verena CR ANCER D.O. Active Last Documented On 8 4:14PM ; [facility] Cervicalgia 02/28/2018 CHRIS A ROBERTHCER D.O. Ac tive Last Documented On 8 2:25PM ; [facility] Familial Hypertriglyceridemia 01/11/2018 CHRIS A CRANCER D.O. Active Last Documented On 8 2:28PM ; [facility] Rheumatoid Arthritis Multiple Sites 01/11/2018 CHRIS A CRANCER D.O. Active Last Documented On 8 2:22PM ; [facility] Hypoxemia 07/13/2017 CHRIS A CRANCER D.O. Act azar Last Documented On 8 9:13AM ; [facility] Migraine Headache Without In tractable Migraine Without Status Migrainosus 07/13/2017 CHRIS Verena ASSISTANT DIRECTOR OF SECURITY NCER D.O. Active Last Documented On 8 9:13AM ; [facility] Arthralgia - Shoulder Region Left 01/12/2017 LE STER A CRANCER D.O. Active Last Documented On 7 3:34PM ; [facility] Low Back Pain 09/12/2016 CHRIS A CRANCER D.O. Active Last Documented On 7 1:37PM ; [facility] Myalgia 04/01/2015 CHRIS A CRANCER D.O. Act azar Last Documented On 5 10:55AM ; [facility] Transient Ischemic Attack (T ia) Without Residual Deficits 06/18/2014 CHRIS A CRANCER D.O. Active Last Documented On 4 5:24PM ; [facility] Celiac Disease 05/02/2014 CHRIS A CRANCER D.O. Active Last Documented On 4 1:38PM ; [facility] Hematuria 09/05/2013 CHRIS A CRANCE R D.O. Active Last Documented On 4 10:43AM ; [facility] Note: Unchanged FB GRANULOMA OF MUSCLE 01/25/2013 Unknown CROW Doyle DO Resolved Last Documented On 3 2:37PM ; [facility] Note: Resolved Pure Hypercholesterolemia 05/18/2012 LE STER A CRANCER D.O. Active Last Documented On 4 4:16PM ; [facility] Atrial Fibrillation 05/18/2012 CHRIS A CRANCER D.O. Active Last Documented On 4 4:16PM ; [facility] Depressive Disorder, Nos 05/18/2012 CHRIS Verena CR ANCER D.O. Active Last Documented On 4 4:16PM ; [facility] Plan of Treatment Findings Encounter Date Ordered patient to call if chad ohtiffany develops PROBLEM VISIT with CHRIS A CRANCER D.O. 08/13/2020 Last Documented On 1 10:34AM ; [facility] Ordered return to the clinic if condition worsens or new symptoms arise PROBLEM VISIT with CHRIS A CRANCER D.O. 08/13/2020 Last Documented On 1 10:34AM ; [facility] Ordered patient to call if p roblem develops HOSPITAL FOLLOW UP EXAM with CHRIS A CRANCER D.O. 05/19/2020 Last Documented On 0 11:36AM ; [facility] Ordered return to the clinic if condition worsens or new symptoms arise HOSPITAL FOLLOW UP EXAM with CHRIS A CRANCER D.O. 05/19/2020 Last Documented On 0 11:36AM ; [facility] Ordered patient to call if p roblem develops EMERGENCY ROOM FOLLOW UP with CHRIS A CRANCER D.O. 01/10/2020 Last Documented On 0 3:56PM ; [facility] Ordered referred to emergency room EMERG ENCY ROOM FOLLOW UP with CHRIS A CRANCER D.O. 01/10/2020 Last Documented On 0 3:56PM ; [facility] Ordered return to the clinic if condition worsens or new symptoms arise EMERGENCY ROOM FOLLOW UP with CHRIS A CRANCER D.O. 01/10/2020 Last Documented On 0 3:56PM ; [facility] Wear a knee brace on left le g, alternate ice/heat 3 MONTH CHECK with CRHIS A CRANCER D.O. 08/14/2019 Last Documented On 0 5:30PM ; [facility] Ordered patient to call if p roblem develops 3 MONTH CHECK with CHRIS A CRANCER D.O. 08/14/2019 Last Documented On 0 5:30PM ; [facility] Ordered return to the clinic if condition worsens or new symptoms arise 3 MONTH CHECK with CHRIS A CRANCER D.O. 08/14/2019 Last Documented On 0 5:30PM ; [facility] Pt to call and get appt sche duled for a f/u appointment with his Neurologist/ 1 MONTH CHECK with CHRIS A CRANCER D.O. 05/16/2019 Last Documented On 9 4:34PM ; [facility] Ordered patient to call if p roblem develops 1 MONTH CHECK with CHRIS A CRANCER D.O. 05/16/2019 Last Documented On 9 4:34PM ; [facility] Ordered return to the clinic if condition worsens or new symptoms arise 1 MONTH CHECK with CHRIS A CRANCER D.O. 05/16/2019 Last Documented On 9 4:34PM ; [facility] Start Nitrostat tablets as needed 1 MONTH CHECK with CHRIS A CRANCER D.O. 04/11/2019 Last Documented On 9 3:20PM ; [facility] Ordered patient to call if p roblem develops CHECK UP with CHRIS A CRANCER D.O. 03/18/2019 Last Documented On 9 2:44PM ; [facility] Ordered return to the clinic if condition worsens or new symptoms arise CHECK UP with CHRIS A CRANCER D.O. 03/18/2019 Last Documented On 9 2:44PM ; [facility] CT abdomen/pelvis Long discu ssion on proper lifting and avoid straining. Discussed loosing weight. Discussed avoiding activities that cause the right groin pain for a while and see if a strain will heal. F/U: after CT scan CONSULTATION with CROW SANCHEZ DO 03/14/2019 Last Documented On 9 1:38PM ; [facility] Ordered patient to call if p roblem develops 1 WK CK-UP with CHRIS A CRANCER D.O. 03/07/2019 Last Documented On 9 3:59PM ; [facility] Ordered return to the clinic if condition worsens or new symptoms arise 1 WK CK-UP with CHRIS A CRANCER D.O. 03/07/2019 Last Documented On 9 3:59PM ; [facility] Ordered patient to call if p roblem develops 1 WK CK-UP with CHRIS A CRANCER D.O. 02/28/2019 Last Documented On 9 4:51PM ; [facility] Ordered return to the clinic if condition worsens or new symptoms arise 1 WK CK-UP with CHRIS A CRANCER D.O. 02/28/2019 Last Documented On 9 4:51PM ; [facility] Ordered patient to call if p roblem develops 3 MONTH CHECK with CHRIS A CRANCER D.O. 02/20/2019 Last Documented On 9 2:56PM ; [facility] Ordered return to the clinic if condition worsens or new symptoms arise 3 MONTH CHECK with CHRIS A CRANCER D.O. 02/20/2019 Last Documented On 9 2:56PM ; [facility] Ordered patient to call if p roblem develops 3 MONTH CHECK with CHRIS A CRANCER D.O. 11/19/2018 Last Documented On 9 5:11PM ; [facility] Ordered return to the clinic if condition worsens or new symptoms arise 3 MONTH CHECK with CHRIS A CRANCER D.O. 11/19/2018 Last Documented On 9 5:11PM ; [facility] Ordered patient to call if p roblem develops 1 WK CK-UP with CHRIS A CRANCER D.O. 09/28/2018 Last Documented On 9 5:21PM ; [facility] Ordered return to the clinic if condition worsens or new symptoms arise 1 WK CK-UP with CHRIS A CRANCER D.O. 09/28/2018 Last Documented On 9 5:21PM ; [facility] Ordered follow-up visit 1 week HOSPITAL FOLLOW UP EXAM with CHRIS A CRANCER D.O. 09/21/2018 Last Documented On 9 12:28PM ; [facility] Ordered patient to call if p roblem develops HOSPITAL FOLLOW UP EXAM with CHRIS A CRANCER D.O. 09/21/2018 Last Documented On 9 12:28PM ; [facility] Ordered return to the clinic if condition worsens or new symptoms arise HOSPITAL FOLLOW UP EXAM with CHRIS A CRANCER D.O. 09/21/2018 Last Documented On 9 12:28PM ; [facility] Ordered follow-up visit 3 months PROBLEM VISIT w ith CHRIS A CRANCER D.O. 08/09/2018 Last Documented On 9 5:07PM ; [facility] Ordered patient to call if p roblem develops PROBLEM VISIT with CHRIS A CRANCER D.O. 08/09/2018 Last Documented On 9 5:07PM ; [facility] Ordered return to the clinic if condition worsens or new symptoms arise PROBLEM VISIT with CHRIS A CRANCER D.O. 08/09/2018 Last Documented On 9 5:07PM ; [facility] Ordered follow-up visit 1 month 1 WK CK-UP with CHRIS A CRANCER D.O. 07/20/2018 Last Documented On 9 8:37AM ; [facility] Ordered patient to call if p roblem develops 1 WK CK-UP with CHRIS A CRANCER D.O. 07/20/2018 Last Documented On 9 8:37AM ; [facility] Ordered return to the clinic if condition worsens or new symptoms arise 1 WK CK-UP with CHRIS A CRANCER D.O. 07/20/2018 Last Documented On 9 8:37AM ; [facility] Try otc Colace (stool softener) 1 WK CK-UP with CHRIS A CRANCER D.O. 07/13/2018 Last Documented On 9 3:27PM ; [facility] Ordered follow-up visit 1 week 1 WK CK-UP with L GEORGE A CRANCER D.O. 07/13/2018 Last Documented On 9 3:27PM ; [facility] Ordered patient to call if p roblem develops 1 WK CK-UP with CHRIS A CRANCER D.O. 07/13/2018 Last Documented On 9 3:27PM ; [facility] Ordered return to the clinic if condition worsens or new symptoms arise 1 WK CK-UP with CHRIS A CRANCER D.O. 07/13/2018 Last Documented On 9 3:27PM ; [facility] call Urologist today to try to get in to him 1 WK CK-UP with CHRIS A CRANCER D.O. 07/09/2018 Last Documented On 9 3:37PM ; [facility] Ordered follow-up visit 1 WK CK-UP with CHRIS A CRANCER D.O. 07/09/2018 Last Documented On 9 3:37PM ; [facility] Ordered patient to call if p roblem develops 1 WK CK-UP with CHRIS A CRANCER D.O. 07/09/2018 Last Documented On 9 3:37PM ; [facility] Ordered return to the clinic if condition worsens or new symptoms arise 1 WK CK-UP with CHRIS A CRANCER D.O. 07/09/2018 Last Documented On 9 3:37PM ; [facility] Patient is advised to call h is Urologist to be seen CANDIDO due to possible kidney stone PROBLEM VISIT with CHRIS A CRANCER D.O. 07/04/2018 Last Documented On 9 9:38AM ; [facility] Ordered follow-up visit Monday PROBLEM VISIT wit h CHRIS A CRANCER D.O. 07/04/2018 Last Documented On 9 9:38AM ; [facility] Ordered patient to call if p roblem develops PROBLEM VISIT with CHRIS A CRANCER D.O. 07/04/2018 Last Documented On 9 9:38AM ; [facility] Ordered return to the clinic if condition worsens or new symptoms arise PROBLEM VISIT with CHRIS A CRANCER D.O. 07/04/2018 Last Documented On 9 9:38AM ; [facility] Try using some vaseline with a q-tip in the left nare for the sore SICK VISIT with CHRIS A CRANCER D.O. 05/30/2018 Last Documented On 8 10:37AM ; [facility] Ordered referred to emergenc y room for observation due to the chest pressure SICK VISIT with CHRIS A CRANCER D.O. 05/30/2018 Last Documented On 8 10:37AM ; [facility] Ordered follow-up visit 3 mo nths, will get a fasting lab early next week and call the next day for results 3 MONTH CHECK with CHRIS A CRANCER D.O. 04/13/2018 Last Documented On 8 8:23AM ; [facility] Ordered patient to call if p roblem develops 3 MONTH CHECK with CHRIS A CRANCER D.O. 04/13/2018 Last Documented On 8 8:23AM ; [facility] Ordered return to the clinic if condition worsens or new symptoms arise 3 MONTH CHECK with CHRIS A CRANCER D.O. 04/13/2018 Last Documented On 8 8:23AM ; [facility] Ordered follow-up visit 2 weeks 1 WK CK-UP with CHRIS A CRANCER D.O. 03/14/2018 Last Documented On 8 4:56PM ; [facility] Ordered patient to call if p roblem develops 1 WK CK-UP with CHRIS A CRANCER D.O. 03/14/2018 Last Documented On 8 4:56PM ; [facility] Ordered return to the clinic if condition worsens or new symptoms arise 1 WK CK-UP with CHRIS A CRANCER D.O. 03/14/2018 Last Documented On 8 4:56PM ; [facility] Ordered patient to call if p roblem develops 1 WK CK-UP with CHRIS A CRANCER D.O. 03/07/2018 Last Documented On 8 11:40AM ; [facility] Ordered return to the clinic if condition worsens or new symptoms arise 1 WK CK-UP with CHRIS A CRANCER D.O. 03/07/2018 Last Documented On 8 11:40AM ; [facility] NO FRACTURES SEEN ON THE CT SCANS. 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 02/28/2018 Last Documented On 8 8:20AM ; [facility] Ordered patient to call if p roblem develops PROBLEM VISIT with CHRIS A CRANCER D.O. 02/28/2018 Last Documented On 8 8:20AM ; [facility] Ordered return to the clinic if condition worsens or new symptoms arise PROBLEM VISIT with HCRIS A CRANCER D.O. 02/28/2018 Last Documented On 8 8:20AM ; [facility] Ordered follow-up visit 3 months 3 MONTH CHECK w ith CHRIS A CRANCER D.O. 01/11/2018 Last Documented On 8 4:57PM ; [facility] Ordered patient to call if p roblem develops 3 MONTH CHECK with CHRIS A CRANCER D.O. 01/11/2018 Last Documented On 8 4:57PM ; [facility] Ordered return to the clinic if condition worsens or new symptoms arise 3 MONTH CHECK with CHRIS Villa.O. 01/11/2018 Last Documented On 8 4:57PM ; [facility] Call the Urologist today and tell them about the thought of the Oxybutinin maybe causing the problems. Referral to Neurology, it may take a few months to get in so continue to see current Neurologist until appt is made with new Doctor HOSPITAL FOLLOW UP EXAM with CHRIS Villa.O. 11/14/2017 Last Documented On 8 5:29PM ; [facility] Ordered patient to call if chad ahrt develops HOSPITAL FOLLOW UP EXAM with CHRIS Villa.O. 11/14/2017 Last Documented On 8 5:29PM ; [facility] Ordered return to the clinic if condition worsens or new symptoms arise HOSPITAL FOLLOW UP EXAM with CHRIS Villa.O. 11/14/2017 Last Documented On 8 5:29PM ; [facility] Ordered Clinical summary pro vided to patient PROBLEM VISIT with CHRIS Villa.O. 10/09/2017 Last Documented On 8 5:39PM ; [facility] Discuss the Cymbalta with Ps ychiatrist before starting it. Will give Celiac diet to try. Watch for redness and swelling on the left ear. Call and let us know what the 5 mg blood pressure pill was that was given at the ER. Call the office a day or two after getting lab for results EMERGENCY ROOM FOLLOW UP with CHRIS MALAVE D.O. 09/28/2017 Last Documented On 8 5:29PM ; [facility] Ordered follow-up visit get non fasting lab on Monday, f/u in 2 weeks EMERGENCY ROOM FOLLOW UP with CHRIS Villa.O. 09/28/2017 Last Documented On 8 5:29PM ; [facility] Ordered patient to call if chad hart develops EMERGENCY ROOM FOLLOW UP with CHRIS Villa.O. 09/28/2017 Last Documented On 8 5:29PM ; [facility] Ordered return to the clinic if condition worsens or new symptoms arise EMERGENCY ROOM FOLLOW UP with CHRIS MALAVE D.O. 09/28/2017 Last Documented On 8 5:29PM ; [facility] Call Neurologist at [facility] to g et set up with appointment. Call Psychiatrist to see if you can be seen sooner due to the anxiety/depression getting worse. Call Rheumatology and tell them the Lavern isn't helping and that it has been almost 3 months. Can try taking the Over the counter magnesium oxide 250 mg-Twice a day EMERGENCY ROOM FOLLOW UP with CHRIS Villa.Brad. 09/18/2017 Last Documented On 8 1:17PM ; [facility] Ordered follow-up visit 1 month EMERGENC Y ROOM FOLLOW UP with CHRIS Villa.Brad. 09/18/2017 Last Documented On 8 1:17PM ; [facility] Ordered patient to call if chad hart develops EMERGENCY ROOM FOLLOW UP with CHRIS Villa.Brad. 09/18/2017 Last Documented On 8 1:17PM ; [facility] Ordered return to the clinic if condition worsens or new symptoms arise EMERGENCY ROOM FOLLOW UP with CHRIS Villa.Brad. 09/18/2017 Last Documented On 8 1:17PM ; [facility] Is to stop the Levaquin and check his INR on Monday morning EMERGENCY ROOM FOLLOW UP with CHRIS Villa.Brad. 07/21/2017 Last Documented On 8 8:25PM ; [facility] Ordered patient to call if chad hart develops EMERGENCY ROOM FOLLOW UP with CHRIS Villa.O. 07/21/2017 Last Documented On 8 8:25PM ; [facility] Ordered return to the clinic if condition worsens or new symptoms arise EMERGENCY ROOM FOLLOW UP with CHRIS Villa.Brad. 07/21/2017 Last Documented On 8 8:25PM ; [facility] Go to the eye doctor to see about the blurred vision. Call the Neurologist first and tell him about the blurred vision. See if he wants to do anything before going to the eye doctor PROBLEM VISIT with CHRIS LEPECER D.O. 04/21/2017 Last Documented On 7 5:39PM ; [facility] Ordered follow-up visit 3 months PROBLEM VISIT w ml Albarado CRANCER D.O. 04/21/2017 Last Documented On 7 5:39PM ; [facility] Ordered patient to call if chad hart develops PROBLEM VISIT with CHRIS A CRANCER D.O. 04/21/2017 Last Documented On 7 5:39PM ; [facility] Ordered return to the clinic if condition worsens or new symptoms arise PROBLEM VISIT with CHRIS Albarado CRANCER D.O. 04/21/2017 Last Documented On 7 5:39PM ; [facility] Pt is needing a new CPAP mac lazara, his is not working because it is old, he needs it for sleep apnes, he says the machine is about 8-9 years old and it keeps shutting off and on. He is also needing a new oxygen machine, his machine stopped working about 2 weeks ago. He uses 5 liters at night. He is compliant with the machine's and uses it every day. He has not been able to use them because they are in non working condition. He need's these machines as soon as possible as not to cause any health problems PROBLEM VISIT with CHRIS Albarado CRANCER D.O. 02/28/2017 Last Documented On 7 12:39PM ; [facility] Ordered patient to call if chad hart develops PROBLEM VISIT with CHRIS A CRANCER D.O. 02/28/2017 Last Documented On 7 12:39PM ; [facility] Ordered return to the clinic if condition worsens or new symptoms arise PROBLEM VISIT with CHRIS Albarado CRANCER D.O. 02/28/2017 Last Documented On 7 12:39PM ; [facility] Per office, Pt is to get there at 8:15 on Monday01-13-17 and bring current med. list (printout was given to pt.) 1 WK CK-UP with CHRIS Albarado CRANCER D.O. 01/12/2017 Last Documented On 7 4:07PM ; [facility] Ordered patient to call if p roblem develops 1 WK CK-UP with CHRIS A CRANCER D.O. 01/12/2017 Last Documented On 7 4:07PM ; [facility] Ordered return to the clinic if condition worsens or new symptoms arise 1 WK CK-UP with CHRIS A CRANCER D.O. 01/12/2017 Last Documented On 7 4:07PM ; [facility] Ordered return to the clinic if condition worsens or new symptoms arise EMERGENCY ROOM FOLLOW UP with CHRIS A CRANCER D.O. 01/05/2017 Last Documented On 7 4:40PM ; [facility] Can try over the counter zofia ilax if no bowel movement in the next day or so, but stay well hydrated 3 MONTH CHECK with CHRIS A CRANCER D.O. 10/20/2016 Last Documented On 7 9:58AM ; [facility] Ordered follow-up visit 3 months 3 MONTH CHECK w ith CHRIS A CRANCER D.O. 10/20/2016 Last Documented On 7 9:58AM ; [facility] Ordered patient to call if p roblem develops 3 MONTH CHECK with CHRIS A CRANCER D.O. 10/20/2016 Last Documented On 7 9:58AM ; [facility] Ordered return to the clinic if condition worsens or new symptoms arise 3 MONTH CHECK with CHRIS A CRANCER D.O. 10/20/2016 Last Documented On 7 9:58AM ; [facility] Ordered follow-up visit 1 month 1 MONTH CHECK wi CHRIS A CRANCER D.O. 09/12/2016 Last Documented On 7 3:31PM ; [facility] Ordered patient to call if p roblem develops 1 MONTH CHECK with CHRIS A CRANCER D.O. 09/12/2016 Last Documented On 7 3:31PM ; [facility] Ordered return to the clinic if condition worsens or new symptoms arise 1 MONTH CHECK with CHRIS A CRANCER D.O. 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 08/24/2016 Last Documented On 7 3:25PM ; [facility] Ordered follow-up visit 1 month 1 MONTH CHECK wi th CHRIS A CRANCER D.O. 08/24/2016 Last Documented On 7 3:25PM ; [facility] Ordered patient to call if p roblem develops 1 MONTH CHECK with CHRIS A CRANCER D.O. 08/24/2016 Last Documented On 7 3:25PM ; [facility] Ordered return to the clinic if condition worsens or new symptoms arise 1 MONTH CHECK with CHRIS A CRANCER D.O. 08/24/2016 Last Documented On 7 3:25PM ; [facility] [facility] Start the Prednisone tomorrow morning FL OBLEM VISIT with CHRIS A CRANCER D.O. 08/03/2016 Last Documented On 7 4:55PM ; [facility] Ordered patient to call if p roblem develops PROBLEM VISIT with CHRIS A CRANCER D.O. 08/03/2016 Last Documented On 7 4:55PM ; [facility] Ordered return to the clinic if condition worsens or new symptoms arise PROBLEM VISIT with CHRIS A CRANCER D.O. 08/03/2016 Last Documented On 7 4:55PM ; [facility] Ordered patient to call if p roblem develops 3 MONTH CHECK with CHRIS A CRANCER D.O. 07/22/2016 Last Documented On 7 10:48AM ; [facility] Ordered return to the clinic if condition worsens or new symptoms arise 3 MONTH CHECK with CHRIS A CRANCER D.O. 07/22/2016 Last Documented On 7 10:48AM ; [facility] Ordered patient to call if p roblem develops MED CHECK with CHRIS A CRANCER D.O. 04/22/2016 Last Documented On 6 10:36AM ; [facility] Ordered return to the clinic if condition worsens or new symptoms arise MED CHECK with CHRIS A CRANCER D.O. 04/22/2016 Last Documented On 6 10:36AM ; [facility] Stop the Indomethacin and th e Allopurinol. Don't take Aleve or Ibuprofen. Tell the Business Banker about the elevated uric acid of 10.1 and how he wants to treat it with being on coumadin EMERGENCY ROOM FOLLOW UP with CHRIS MALAVE D.O. 04/04/2016 Last Documented On 6 5:19PM ; [facility] Ordered patient to call if chad hart develops EMERGENCY ROOM FOLLOW UP with CHRIS MALAVE D.O. 04/04/2016 Last Documented On 6 5:19PM ; [facility] Bring all medicine's that yo u're taking to next appointment. Try using heel pads in shoes for the heel pain. Move up appointment with Neurologist 3 MONTH CHECK with CHRIS MALAVE D.O. 01/28/2016 Last Documented On 6 5:37PM ; [facility] Ordered patient to call if chad hart develops PROBLEM VISIT with PHILIPPE MARTINEZ PA-C 01/05/2016 Last Documented On 6 11:24AM ; [facility] Ordered return to the clinic if condition worsens or new symptoms arise PROBLEM VISIT with PHILIPPE MARTINEZ PA-C 01/05/2016 Last Documented On 6 11:24AM ; [facility] Ordered return to the clinic if condition worsens or new symptoms arise PROBLEM VISIT with CHRIS MALAVE D.O. 04/22/2015 Last Documented On 5 4:19PM ; [facility] Ordered return to the clinic if condition worsens or new symptoms arise PROBLEM VISIT with CHRIS MALAVE D.O. 04/16/2015 Last Documented On 5 4:23PM ; [facility] need to call and get office note and labs from get labs done today, f/u with in 2 weeks GENERAL OFFICE VISIT with CHRIS MALAVE D.O. 04/01/2015 Last Documented On 5 2:55PM ; [facility] Ordered follow-up visit 3 M [facility] FOLLOW UP GENERAL OFFICE VISIT with CHRIS MALAVE D.O. 02/02/2015 Last Documented On 5 5:22PM ; [facility] Ordered patient to call if s ymptoms worsen HOSPITAL FOLLOW UP EXAM with CHRIS Verena CRANCER D.O. 11/03/2014 Last Documented On 5 4:12PM ; [facility] Ordered follow-up visit one month [facility] NC[facility] ROOM FOLLOW UP with CHRIS A CRANCER D.O. 06/18/2014 Last Documented On 4 9:48PM ; [facility] Ordered follow-up visit FOL LOW UP IN 3 MONTHS 3 MONTH CHECK with CHRIS A CRANCER D.O. 05/02/2014 Last Documented On 4 2:02PM ; [facility] Ordered return to the clinic if condition worsens or new symptoms arise 3 MONTH CHECK with CHRIS A CRANCER D.O. 05/02/2014 Last Documented On 4 2:02PM ; [facility] Ordered Clinical summary pro vided to patient PROBLEM VISIT with CHRIS A CRANCER D.O. 01/23/2014 Last Documented On 4 9:24AM ; [facility] Ordered Clinical summary pro vided to patient PROBLEM VISIT with CHRIS A CRANCER D.O. 11/27/2013 Last Documented On 4 5:39PM ; [facility] Ordered Clinical summary pro vided to patient SICK VISIT with CHRIS A CRANCER D.O. 04/05/2013 Last Documented On 3 10:24AM ; [facility] Ordered Clinical summary pro vided to patient HOSPITAL FOLLOW UP EXAM with CHRIS A CRANCER D.O. 03/29/2013 Last Documented On 3 2:39PM ; [facility] Excision of suture granuloma under general anesthesia CONSULTATION with CROW SANCHEZ DO 01/25/2013 Last Documented On 3 4:00PM ; [facility] Ordered Clinical summary pro vided to patient PROBLEM VISIT with CHRIS A CRANCER D.O. 08/17/2012 Last Documented On 3 4:25PM ; [facility] Ordered Clinical summary pro vided to patient PROBLEM VISIT with CHRIS A CRANCER D.O. 07/16/2012 Last Documented On 3 6:52PM ; [facility] Ordered Clinical summary pro vided to patient 3 MONTH CHECK with CHRIS MALAVE D.O. 05/18/2012 Last Documented On 2 6:18PM ; [facility] Referrals To Diagnosis Neurologist ROCIO ALEJANDRE MD HEADACHE SYN DROME NEC Note: DR ALEJANDRE Last Documented On 0 10:34AM ; [facility] General Surgery [facility] SK IN Note: DR NAVARRO Last Documented On 0 8:37AM ; [facility] Urologist DAKSHA DOMINGUEZ MD Calculus Of Kidn ey Note: set with dr dominguez the pt has had renal calculi pain for over 1 month. Last Documented On 1 3:52PM ; [facility] ENT Specialist ROZINA HOGUE ACUTE PHARYNGITI S Last Documented On 2 9:41AM ; [facility] Lumber Mover VLADIMIR MORALES M.D. NONTOX UNINODUL AR GOITER Last Documented On 3 3:20PM ; [facility] Electric Organ Assembler And Checker LAN BONILLA MD ABN SERU [facility] LEVEL NEC Note: 04/07/14 1:40pm Last Documented On 4 3:06PM ; [facility] Business Banker ILANA WHITTEN MD RHEUMATOID AR THRITIS Note: 03/17/15 @ 10:00 Last Documented On 5 3:30PM ; [facility] Orthopedic ARACELIJOSE JEROME DO JOINT PAIN- SH OULDER Last Documented On 6 7:02PM ; [facility] Business Banker [address] [place] [address] - Myalgia Last Documented On 6 8:03PM ; [facility] Orthopedic ARACELI QUEENIE DO Pain in left s houlder Last Documented On 7 4:16PM ; [facility] Neurologist [facility] [place] [address] - Migraine, unsp, not intractable, without status migrainosus Note: [facility] rm complicated migraines Last Documented On 8 4:27PM ; [facility] Podiatry Corns and callteresita ities Note: left heel pain Last Documented On 9 1:49PM ; [facility] Neurologist PARVEZ FAIRCHILD MD Migraine, unsp, not intractable, without status migrainosus Note: Pts. last Neurologist he saw in [facility]. eft the area. /Augie Last Documented On 9 7:57AM ; [facility] Neurosurgeon [facility] [address] [place] [address] - Low back pain Note: pt is not a good lindsey date for Physical Therapy, the low back pain could be a complication from a past surgery and it is affecting his gait due to the pain. Last Documented On 9 10:49AM ; [facility] General Surgery CROW SANCHEZ DO Testicular anu n, unspecified Note: Possible inguinal isma iaDrPayal Last Documented On 9 6:46AM ; [facility] Audit Senior Associate [employer] ALEMAN - [address] [place] [address] - Chronic obstructive pulmonary disease, unspecified Note: Dr.Zachary Headley/CHIDI Last Documented On 9 1:12PM ; [facility] Instructions to patient Go to the emergency room if condition worsens Last Documented On 0 1:45PM ; [facility] Watch for signs/symptoms of infection Last Documented On 0 1:45PM ; [facility] Go to the emergency room if condition worsens Last Documented On 9 11:33AM ; [facility] Watch for signs/symptoms of infection Last Documented On 9 11:33AM ; [facility] Recommend diet and exercise at least 30 min three times per week Last Documented On 9 11:38AM ; [facility] Go to the emergency room if condition worsens Last Documented On 9 12:11PM ; [facility] Watch for signs/symptoms of infection Last Documented On 9 12:11PM ; [facility] Go to the emergency room if condition worsens Last Documented On 9 2:49PM ; [facility] Watch for signs/symptoms of infection Last Documented On 9 2:49PM ; [facility] Go to the emergency room if condition worsens Last Documented On 9 8:33AM ; [facility] Watch for signs/symptoms of infection Last Documented On 9 8:33AM ; [facility] Go to the emergency room if condition worsens Last Documented On 9 11:05AM ; [facility] Watch for signs/symptoms of infection Last Documented On 9 11:05AM ; [facility] Go to the emergency room if condition worsens Last Documented On 9 1:38PM ; [facility] Watch for signs/symptoms of infection Last Documented On 9 1:38PM ; [facility] Go to the emergency room if condition worsens Last Documented On 9 1:37PM ; [facility] Watch for signs/symptoms of infection Last Documented On 9 1:37PM ; [facility] Recommend diet and exercise at least 30 min three times per week Last Documented On 9 1:41PM ; [facility] Go to the emergency room if condition worsens Last Documented On 9 3:45PM ; [facility] Watch for signs/symptoms of infection Last Documented On 9 3:45PM ; [facility] Go to the emergency room if condition worsens Last Documented On 9 2:35PM ; [facility] Watch for signs/symptoms of infection Last Documented On 9 2:35PM ; [facility] Go to the emergency room if condition worsens Last Documented On 9 2:42PM ; [facility] Watch for signs/symptoms of infection Last Documented On 9 2:42PM ; [facility] Go to the emergency room if condition worsens Last Documented On 9 1:46PM ; [facility] Watch for signs/symptoms of infection Last Documented On 9 1:46PM ; [facility] Go to the emergency room if condition worsens Last Documented On 9 1:27PM ; [facility] Watch for signs/symptoms of infection Last Documented On 9 1:27PM ; [facility] Go to the emergency room if condition worsens Last Documented On 9 2:49PM ; [facility] Watch for signs/symptoms of infection Last Documented On 9 2:49PM ; [facility] Go to the emergency room if condition worsens Last Documented On 9 1:56PM ; [facility] Watch for signs/symptoms of infection Last Documented On 9 1:56PM ; [facility] Go to the emergency room if condition worsens Last Documented On 8 2:21PM ; [facility] Watch for signs/symptoms of infection Last Documented On 8 2:21PM ; [facility] Go to the emergency room if condition worsens Last Documented On 8 2:24PM ; [facility] Watch for signs/symptoms of infection Last Documented On 8 2:24PM ; [facility] Go to the emergency room if condition worsens Last Documented On 8 2:51PM ; [facility] Watch for signs/symptoms of infection Last Documented On 8 2:51PM ; [facility] Go to the emergency room if condition worsens Last Documented On 8 4:12PM ; [facility] Watch for signs/symptoms of infection Last Documented On 8 4:12PM ; [facility] Go to the emergency room if condition worsens Last Documented On 8 2:22PM ; [facility] Watch for signs/symptoms of infection Last Documented On 8 2:22PM ; [facility] Go to the emergency room if condition worsens Last Documented On 8 11:04AM ; [facility] Watch for signs/symptoms of infection Last Documented On 8 11:04AM ; [facility] Go to the emergency room if condition worsens Last Documented On 8 1:27PM ; [facility] Watch for signs/symptoms of infection Last Documented On 8 1:27PM ; [facility] Go to the emergency room if condition worsens Last Documented On 8 1:21PM ; [facility] Watch for signs/symptoms of infection Last Documented On 8 1:21PM ; [facility] Go to the emergency room if condition worsens Last Documented On 8 3:53PM ; [facility] Watch for signs/symptoms of infection Last Documented On 8 3:53PM ; [facility] Go to the emergency room if condition worsens Last Documented On 7 10:46AM ; [facility] Watch for signs/symptoms of infection Last Documented On 7 10:46AM ; [facility] Go to the emergency room if condition worsens Last Documented On 7 3:28PM ; [facility] Go to the emergency room if condition worsens Last Documented On 7 4:27PM ; [facility] Go to the emergency room if condition worsens Last Documented On 7 1:41PM ; [facility] Go to the emergency room if condition worsens Last Documented On 7 1:12PM ; [facility] Go to the emergency room if condition worsens Last Documented On 7 1:35PM ; [facility] Recommend diet and exercise at least 30 min three times per week Last Documented On 5 3:29PM ; [facility] Recommend diet and exercise at least 30 min three times per week Last Documented On 5 10:57AM ; [facility] Go to the emergency room if condition worsens Last Documented On 4 5:27PM ; [facility] Go to the emergency room if condition worsens Last Documented On 4 10:23AM ; [facility] Education and Decision Aids were provided during visit for: Education and counseling Last Documented On 1 2:29PM ; [facility] Education and counseling Last Documented On 0 8:56AM ; [facility] Education and counseling Last Documented On 0 3:04PM ; [facility] Education and counseling Last Documented On 0 1:39PM ; [facility] Education and counseling Last Documented On 9 11:30AM ; [facility] Patient education about a pr oper diet Last Documented On 9 11:38AM ; [facility] Education and counseling Last Documented On 9 12:11PM ; [facility] Education and counseling Last Documented On 9 2:44PM ; [facility] Education and counseling Last Documented On 9 8:27AM ; [facility] Education and counseling Last Documented On 9 10:58AM ; [facility] Education and counseling Last Documented On 9 1:13PM ; [facility] Education and counseling Last Documented On 9 1:34PM ; [facility] Patient education about a pr oper diet Last Documented On 9 1:41PM ; [facility] Education and counseling Last Documented On 9 3:40PM ; [facility] Education and counseling Last Documented On 9 2:14PM ; [facility] Education and counseling Last Documented On 9 2:36PM ; [facility] Education and counseling Last Documented On 9 1:42PM ; [facility] Education and counseling Last Documented On 9 1:26PM ; [facility] Education and counseling Last Documented On 9 2:42PM ; [facility] Education and counseling Last Documented On 9 1:54PM ; [facility] Education and counseling Last Documented On 8 4:31PM ; [facility] Patient's goal is to maintai n normal blood pressure discussed with patient to keep b/p below 140/90 Last Documented On 8 1:31PM ; [facility] Patient education about a pr oper diet -healthy diet Last Documented On 8 1:21PM ; [facility] Patient education about a pr oper diet -Healthy diet encouraged Last Documented On 7 4:27PM ; [facility] Patient education about a pr oper diet -Healthy diet encouraged Last Documented On 7 1:41PM ; [facility] Patient education about a pr oper diet Last Documented On 6 11:44AM ; [facility] Patient education about a pr oper diet encouraged to eat healthy diet Last Documented On 6 9:48AM ; [facility] Discussed concerns about exe rcise encourage to stay active Last Documented On 6 9:48AM ; [facility] Patient education about a pr oper diet Last Documented On 5 3:48PM ; [facility] Patient education about a pr oper diet Last Documented On 5 3:24PM ; [facility] CELIAC DISEASE (Problem) Last Documented On 4 1:38PM ; [facility] Assessments Includes: Assessments for all patient encounters Findings Encounter Date [H69.80 - Other specified di sorders of Eustachian tube, unspecified ear] eustachian tube dysfunction PROBLEM VISIT with CHRIS A CRANCER D.O. 08/13/2020 Last Documented On 1 10:34AM ; [facility] Benign essential hypertension PROBLEM VISIT with CHRIS A CRANCER D.O. 08/13/2020 Last Documented On 1 10:34AM ; [facility] Low back pain PROBLEM VISIT with CHRIS A CRAN CER D.O. 08/13/2020 Last Documented On 1 10:34AM ; [facility] [I10 - Essential (primary) h ypertension] essential hypertension HOSPITAL FOLLOW UP EXAM with CHRIS A CRANCER D.O. 05/19/2020 Last Documented On 0 11:36AM ; [facility] [N20.0 - Calculus of kidney] nephrolithiasis HOSPITAL FOLLOW UP EXAM with CHRIS A CRANCER D.O. 05/19/2020 Last Documented On 0 11:36AM ; [facility] Transient ischemic attack wi thout residual deficits HOSPITAL FOLLOW UP EXAM with CHRIS A CRANCER D.O. 05/19/2020 Last Documented On 0 11:36AM ; [facility] [N40.0 - Benign prostatic hy perplasia without lower urinary tract symptoms] benign prostatic hypertrophy EMERGENCY ROOM FOLLOW UP with CHRIS A CRANCER D.O. 01/10/2020 Last Documented On 0 3:56PM ; [facility] [R07.9 - Chest pain, unspeci fied] chest pain or discomfort EMERGENCY ROOM FOLLOW UP with CHRIS A CRANCER D.O. 01/10/2020 Last Documented On 0 3:56PM ; [facility] [R14.0 - Abdominal distensio n (gaseous)] Abdominal bloating EMERGENCY ROOM FOLLOW UP with CHRIS A CRANCER D.O. 01/10/2020 Last Documented On 0 3:56PM ; [facility] Acute sinusitis 3 MONTH CHECK with CHRIS A CRAN CER D.O. 11/13/2019 Last Documented On 0 4:11PM ; [facility] Benign essential hypertension 3 MONTH CHECK with CHRIS A CRANCER D.O. 11/13/2019 Last Documented On 0 4:11PM ; [facility] Familial hypertriglyceridemia 3 MONTH CHECK with CHRIS A CRANCER D.O. 11/13/2019 Last Documented On 0 4:11PM ; [facility] Pure hypercholesterolemia 3 MONTH CHECK with LES TER A CRANCER D.O. 11/13/2019 Last Documented On 0 4:11PM ; [facility] [G43.909 - Migraine, unspeci fied, not intractable, without status migrainosus] migraine headache without intractable migraine without status migrainosus -stable 3 MONTH CHECK with CHRIS A CRANCER D.O. 08/14/2019 Last Documented On 0 5:30PM ; [facility] [M25.562 - Pain in left knee ] arthralgia of the left knee/patella/tibia/fibula -Medrol dose pack 3 MONTH CHECK with CHRIS A CRANCER D.O. 08/14/2019 Last Documented On 0 5:30PM ; [facility] Benign essential hypertension -stable 3 MONTH CHECK with CHRIS A CRANCER D.O. 08/14/2019 Last Documented On 0 5:30PM ; [facility] [G43.909 - Migraine unspecif ied not intractable without status migrainosus] migraine headache without intractable migraine without status migrainosus -Pt says he got Botox treatments 1 MONTH CHECK with CHRIS A CRANCER D.O. 05/16/2019 Last Documented On 9 4:34PM ; [facility] Backache 1 MONTH CHECK with CHRIS A CRAN CER D.O. 05/16/2019 Last Documented On 9 4:34PM ; [facility] Chronic obstructive pulmonary disease 1 MONTH CHECK with CHRIS A CRANCER D.O. 05/16/2019 Last Documented On 9 4:34PM ; [facility] [I48.91 - Unspecified atrial fibrillation] atrial fibrillation -STABLE 1 MONTH CHECK with CHRIS A CRANCER D.O. 04/11/2019 Last Documented On 9 3:20PM ; [facility] Anxiety disorder NOS 1 MONTH CHECK with CHRIS A CRANCER D.O. 04/11/2019 Last Documented On 9 3:20PM ; [facility] Chronic obstructive pulmonary disease 1 MONTH CHECK with CHRIS A CRANCER D.O. 04/11/2019 Last Documented On 9 3:20PM ; [facility] POST OP VISIT CT scan result s discussed with the patient and . Specifically we discussed the L4-L5 disc pathology and his complaint of back pain and radiation down the right leg that he is going to see a pain management doctor for this. We discussed his anterior abdominal pain with radiation down to the right testicle and that it was not an identifiable hernia on CT and that it could be a ureteral stone since he has a history of stones in the past. They have seen numerous doctors and want to see the prior urologist for this possibility. They will F/U: with me PRN POST OP VISIT with CROW SANCHEZ DO 03/25/2019 Last Documented On 9 11:49AM ; [facility] [I48.91 - Unspecified atrial fibrillation] atrial fibrillation -STABLE CHECK UP with CHRIS A CRANCER D.O. 03/18/2019 Last Documented On 9 2:44PM ; [facility] Anxiety disorder NOS CHECK UP with CHRIS A CRAN CER D.O. 03/18/2019 Last Documented On 9 2:44PM ; [facility] Chronic obstructive pulmonary disease CHECK UP w ith CHRIS A CRANCER D.O. 03/18/2019 Last Documented On 9 2:44PM ; [facility] Benign left testicular cyst Possible right inguinal hernia/strain CONSULTATION with CROW SANCHEZ DO 03/14/2019 Last Documented On 9 1:38PM ; [facility] [I48.91 - Unspecified atrial fibrillation] atrial fibrillation -stable, followed by Cardiology 1 WK CK-UP with CHRIS A CRANCER D.O. 03/07/2019 Last Documented On 9 3:59PM ; [facility] [M54.5 - Low back pain] Low back pain -Is being followed by back surgeon 1 WK CK-UP with CHRIS A CRANCER D.O. 03/07/2019 Last Documented On 9 3:59PM ; [facility] [R06.02 - Shortness of breat h] Dyspnea/SOB -PFT will be ordered 1 WK CK-UP with CHRIS A CRANCER D.O. 03/07/2019 Last Documented On 9 3:59PM ; [facility] [N50.819 - Testicular pain u nspecified] testicular pain -resolved 1 WK CK-UP with CHRIS A CRANCER D.O. 02/28/2019 Last Documented On 9 4:51PM ; [facility] Atrial fibrillation 1 WK CK-UP with CHRIS A ASSISTANT DIRECTOR OF SECURITY NCER D.O. 02/28/2019 Last Documented On 9 4:51PM ; [facility] Shortness of breath 1 WK CK-UP with CHRIS A ASSISTANT DIRECTOR OF SECURITY NCER D.O. 02/28/2019 Last Documented On 9 4:51PM ; [facility] [N44.8 - Other noninflammato ry disorders of the testis] testicular lump 3 MONTH CHECK with CHRIS A CRANCER D.O. 02/20/2019 Last Documented On 9 2:56PM ; [facility] Low back pain 3 MONTH CHECK with CHRIS A CRAN CER D.O. 02/20/2019 Last Documented On 9 2:56PM ; [facility] Testicular pain 3 MONTH CHECK with CHRIS A CRAN CER D.O. 02/20/2019 Last Documented On 9 2:56PM ; [facility] [G43.909 - Migraine, unspeci fied, not intractable, without status migrainosus] migraine headache without intractable migraine without status migrainosus -Is followed by Neurology 3 MONTH CHECK with CHRIS A CRANCER D.O. 11/19/2018 Last Documented On 9 5:11PM ; [facility] [J18.9 - Pneumonia, unspecif ied organism] pneumonia -abx sent to pharmacy 3 MONTH CHECK with CHRIS A CRANCER D.O. 11/19/2018 Last Documented On 9 5:11PM ; [facility] Low back pain 3 MONTH CHECK with CHRIS A CRAN CER D.O. 11/19/2018 Last Documented On 9 5:11PM ; [facility] Benign essential hypertension 1 WK CK-UP with LE STER A CRANCER D.O. 09/28/2018 Last Documented On 9 5:21PM ; [facility] Hypoxemia 1 WK CK-UP with CHRIS A CRANCER D.O. 09/28/2018 Last Documented On 9 5:21PM ; [facility] Low back pain 1 WK CK-UP with CHRIS A CRANCER D.O. 09/28/2018 Last Documented On 9 5:21PM ; [facility] [M54.5 - Low back pain] Low back pain -Post surgery, is having pain and spasms down right leg HOSPITAL FOLLOW UP EXAM with CHRIS A CRANCER D.O. 09/21/2018 Last Documented On 9 12:28PM ; [facility] Benign essential hypertension HOSPITAL F OLLOW UP EXAM with CHRIS A CRANCER D.O. 09/21/2018 Last Documented On 9 12:28PM ; [facility] Low back pain PROBLEM VISIT with CHRIS A CRAN CER D.O. 08/09/2018 Last Documented On 9 5:07PM ; [facility] Sinusitis PROBLEM VISIT with CHRIS A CRAN CER D.O. 08/09/2018 Last Documented On 9 5:07PM ; [facility] Benign essential hypertension 1 WK CK-UP with LE STER A CRANCER D.O. 07/20/2018 Last Documented On 9 8:37AM ; [facility] Low back pain 1 WK CK-UP with CHRIS A CRANCER D.O. 07/20/2018 Last Documented On 9 8:37AM ; [facility] Benign essential hypertension 1 WK CK-UP with LE STER A CRANCER D.O. 07/13/2018 Last Documented On 9 3:27PM ; [facility] Low back pain 1 WK CK-UP with CHRIS A CRANCER D.O. 07/13/2018 Last Documented On 9 3:27PM ; [facility] Pure hypercholesterolemia 1 WK CK-UP with CHRIS A CRANCER D.O. 07/13/2018 Last Documented On 9 3:27PM ; [facility] [M54.5 - Low back pain] Low back pain -Right side 1 WK CK-UP with CHRIS A CRANCER D.O. 07/09/2018 Last Documented On 9 3:37PM ; [facility] Benign essential hypertension 1 WK CK-UP with LE STER A CRANCER D.O. 07/09/2018 Last Documented On 9 3:37PM ; [facility] Abdominal pain--RUQ PROBLEM VISIT with CHRIS A CRANCER D.O. 07/04/2018 Last Documented On 9 9:38AM ; [facility] Low back pain -right side PROBLEM VISIT with LES TER A CRANCER D.O. 07/04/2018 Last Documented On 9 9:38AM ; [facility] Chest pain SICK VISIT with CHRIS A CRANCER D.O. 05/30/2018 Last Documented On 8 10:37AM ; [facility] Nasal ulcer -left nare SICK VISIT with CHRIS A CRANCER D.O. 05/30/2018 Last Documented On 8 10:37AM ; [facility] Arthralgia of the right knee/patella/tibia/fibula 3 MONTH CHECK with CHRIS A CRANCER D.O. 04/13/2018 Last Documented On 8 8:23AM ; [facility] Callus 3 MONTH CHECK with CHRIS A CRAN CER D.O. 04/13/2018 Last Documented On 8 8:23AM ; [facility] Depressive disorder 3 MONTH CHECK with CHRIS A CRANCER D.O. 04/13/2018 Last Documented On 8 8:23AM ; [facility] Migraine headache without in tractable migraine without status migrainosus 3 MONTH CHECK with CHRIS A CRANCER D.O. 04/13/2018 Last Documented On 8 8:23AM ; [facility] [Cervicalgia] cervicalgia 1 WK CK-UP with CHRIS A CRANCER D.O. 03/14/2018 Last Documented On 8 4:56PM ; [facility] Benign essential hypertension 1 WK CK-UP with LE STER A CRANCER D.O. 03/14/2018 Last Documented On 8 4:56PM ; [facility] Visual disturbances 1 WK CK-UP with CHRIS A ASSISTANT DIRECTOR OF SECURITY NCER D.O. 03/14/2018 Last Documented On 8 4:56PM ; [facility] Benign essential hypertension 1 WK CK-UP with LE STER A CRANCER D.O. 03/07/2018 Last Documented On 8 11:40AM ; [facility] Cervicalgia 1 WK CK-UP with CHRIS A CRANCER D.O. 03/07/2018 Last Documented On 8 11:40AM ; [facility] Migraine headache without in tractable migraine without status migrainosus 1 WK CK-UP with CHRIS A CRANCER D.O. 03/07/2018 Last Documented On 8 11:40AM ; [facility] Visual impairment in the left eye 1 WK CK-UP wit h CHRIS A CRANCER D.O. 03/07/2018 Last Documented On 8 11:40AM ; [facility] Atypical face pain contusion left sided facial pain PROBLEM VISIT with CHRIS A CRANCER D.O. 02/28/2018 Last Documented On 8 8:20AM ; [facility] Cervicalgia PROBLEM VISIT with CHRIS A CRAN CER D.O. 02/28/2018 Last Documented On 8 8:20AM ; [facility] Headache syndromes PROBLEM VISIT with CHRIS A C RANCER D.O. 02/28/2018 Last Documented On 8 8:20AM ; [facility] [Migraine, unspecified, not intractable, without status migrainosus] migraine headache without intractable migraine without status migrainosus -saw Neurology, Hasn't had a bad headaches for months now 3 MONTH CHECK with CHRIS MALAVE D.O. 01/11/2018 Last Documented On 8 4:57PM ; [facility] [Other specified rheumatoid arthritis, multiple sites] rheumatoid arthritis of multiple sites -[employer] follows 3 MONTH CHECK with CHRIS MALAVE D.O. 01/11/2018 Last Documented On 8 4:57PM ; [facility] [Pure hyperglyceridemia] fam ilial hypertriglyceridemia -is followed by [facility] 3 MONTH CHECK with CHRIS LEPECER D.O. 01/11/2018 Last Documented On 8 4:57PM ; [facility] Depressive disorder 3 MONTH CHECK with CHRIS MALAVE D.O. 01/11/2018 Last Documented On 8 4:57PM ; [facility] Hyperlipidemia 3 MONTH CHECK with CHRIS LEPE CER D.O. 01/11/2018 Last Documented On 8 4:57PM ; [facility] Benign essential hypertension [facility] F OLLOW UP EXAM with CHRIS MALAVE D.O. 11/14/2017 Last Documented On 8 5:29PM ; [facility] Migraine headache without in tractable migraine without status migrainosus HOSPITAL FOLLOW UP EXAM with CHRIS MALAVE D.O. 11/14/2017 Last Documented On 8 5:29PM ; [facility] Urinary calculus bilaterally HOSPITAL FO LLOW UP EXAM with CHRIS MALAVE D.O. 11/14/2017 Last Documented On 8 5:29PM ; [facility] Depression RECHECK with CHRIS MALAVE D. O. 10/12/2017 Last Documented On 8 12:04PM ; [facility] Low back pain RECHECK with CHRIS MALAVE D. O. 10/12/2017 Last Documented On 8 12:04PM ; [facility] Nephrolithiasis RECHECK with CHRIS A CRANCER D. O. 10/12/2017 Last Documented On 8 12:04PM ; [facility] Abdominal pain PROBLEM VISIT with CHRIS A CRAN CER D.O. 10/09/2017 Last Documented On 8 5:39PM ; [facility] Anxiety disorder NOS which is stable PRO BLEM VISIT with CHRIS A CRANCER D.O. 10/09/2017 Last Documented On 8 5:39PM ; [facility] Dependent edema due to inactivity PROBLEM VISIT with CHRIS A CRANCER D.O. 10/09/2017 Last Documented On 8 5:39PM ; [facility] Depression which is stable PROBLEM VISIT with LE STER A CRANCER D.O. 10/09/2017 Last Documented On 8 5:39PM ; [facility] Hematuria PROBLEM VISIT with CHRIS A CRAN CER D.O. 10/09/2017 Last Documented On 8 5:39PM ; [facility] Anxiety disorder NOS EMERGENCY ROOM FOLLOW UP wi th CHRIS A CRANCER D.O. 09/28/2017 Last Documented On 8 5:29PM ; [facility] Depressive disorder EMERGENCY ROOM FOLLOW UP wit h CHRIS A CRANCER D.O. 09/28/2017 Last Documented On 8 5:29PM ; [facility] Migraine headache without in tractable migraine without status migrainosus EMERGENCY ROOM FOLLOW UP with CHRIS A CRANCER D.O. 09/28/2017 Last Documented On 8 5:29PM ; [facility] Myalgia EMERGENCY ROOM FOLLOW UP with LE STER A CRANCER D.O. 09/28/2017 Last Documented On 8 5:29PM ; [facility] Migraine headache without in tractable migraine without status migrainosus EMERGENCY ROOM FOLLOW UP with CHRIS A CRANCER D.O. 09/18/2017 Last Documented On 8 1:17PM ; [facility] Myalgia EMERGENCY ROOM FOLLOW UP with LE STER A CRANCER D.O. 09/18/2017 Last Documented On 8 1:17PM ; [facility] Transient ischemic attack wi thout residual deficits EMERGENCY ROOM FOLLOW UP with CHRIS A CRANCER D.O. 09/18/2017 Last Documented On 8 1:17PM ; [facility] [Wheezing] wheezing EMERGENCY ROOM FOLLOW UP wit h CHRIS A CRANCER D.O. 07/21/2017 Last Documented On 8 8:25PM ; [facility] Pneumonia EMERGENCY ROOM FOLLOW UP with LE STER A CRANCER D.O. 07/21/2017 Last Documented On 8 8:25PM ; [facility] Atrial fibrillation FACE TO FACE with CHRIS A C RANCER D.O. 07/13/2017 Last Documented On 8 9:19AM ; [facility] Hypoxemia FACE TO FACE with CHRIS A CRANC ER D.O. 07/13/2017 Last Documented On 8 9:19AM ; [facility] Migraine headache without in tractable migraine without status migrainosus FACE TO FACE with CHRIS A CRANCER D.O. 07/13/2017 Last Documented On 8 9:19AM ; [facility] Organic sleep apnea FACE TO FACE with CHRIS A C RANCER D.O. 07/13/2017 Last Documented On 8 9:19AM ; [facility] Rheumatoid arthritis FACE TO FACE with CHRIS A CRANCER D.O. 07/13/2017 Last Documented On 8 9:19AM ; [facility] Backache PROBLEM VISIT with CHRIS A CRAN CER D.O. 06/20/2017 Last Documented On 7 5:40PM ; [facility] Cerumen impaction PROBLEM VISIT with CHRIS A CR ANCER D.O. 06/20/2017 Last Documented On 7 5:40PM ; [facility] Eustachian tube dysfunction PROBLEM VISIT with L GEORGE A CRANCER D.O. 06/20/2017 Last Documented On 7 5:40PM ; [facility] Rheumatoid arthritis PROBLEM VISIT with CHRIS A CRANCER D.O. 06/20/2017 Last Documented On 7 5:40PM ; [facility] Backache which is stable PROBLEM VISIT with LEST ER A CRANCER D.O. 04/21/2017 Last Documented On 7 5:39PM ; [facility] Elbow injury -left elbow PROBLEM VISIT with LEST ER A CRANCER D.O. 04/21/2017 Last Documented On 7 5:39PM ; [facility] Migraine headache PROBLEM VISIT with CHRIS A CR ANCER D.O. 04/21/2017 Last Documented On 7 5:39PM ; [facility] Shoulder joint pain -left PROBLEM VISIT with LES TER A CRANCER D.O. 04/21/2017 Last Documented On 7 5:39PM ; [facility] Hypoxia PROBLEM VISIT with CHRIS A CRAN CER D.O. 02/28/2017 Last Documented On 7 12:39PM ; [facility] Organic sleep apnea PROBLEM VISIT with CHRIS A CRANCER D.O. 02/28/2017 Last Documented On 7 12:39PM ; [facility] Sunburn PROBLEM VISIT with CHRIS A CRAN CER D.O. 02/28/2017 Last Documented On 7 12:39PM ; [facility] Anxiety disorder NOS 1 WK CK-UP with CHRIS A CR ANCER D.O. 01/12/2017 Last Documented On 7 4:07PM ; [facility] Arthralgia of left shoulder region 1 WK CK-UP wi th CHRIS A CRANCER D.O. 01/12/2017 Last Documented On 7 4:07PM ; [facility] Chronic reflux esophagitis 1 WK CK-UP with LESTE R A CRANCER D.O. 01/12/2017 Last Documented On 7 4:07PM ; [facility] Depression which is stable N O PLANS TO HARM HIMSELF 1 WK CK-UP with CHRIS A CRANCER D.O. 01/12/2017 Last Documented On 7 4:07PM ; [facility] Shoulder joint pain LEFT JACQUELINE ULDER IMPACTION FRACTURE 1 WK CK-UP with CHRIS A CRANCER D.O. 01/12/2017 Last Documented On 7 4:07PM ; [facility] Anxiety disorder NOS EMERGENCY ROOM FOLLOW UP wi th CHRIS A CRANCER D.O. 01/05/2017 Last Documented On 7 4:40PM ; [facility] Arthralgia of bilateral shou lder region EMERGENCY ROOM FOLLOW UP with CHRIS A CRANCER D.O. 01/05/2017 Last Documented On 7 4:40PM ; [facility] Disturbance in skin or paresthesia EMERG ENCY ROOM FOLLOW UP with CHRIS A CRANCER D.O. 01/05/2017 Last Documented On 7 4:40PM ; [facility] Low back pain EMERGENCY ROOM FOLLOW UP with LE STER A CRANCER D.O. 01/05/2017 Last Documented On 7 4:40PM ; [facility] Constipation 3 MONTH CHECK with CHRIS A CRAN CER D.O. 10/20/2016 Last Documented On 7 9:58AM ; [facility] Depressive disorder 3 MONTH CHECK with CHRIS A CRANCER D.O. 10/20/2016 Last Documented On 7 9:58AM ; [facility] Low back pain 3 MONTH CHECK with CHRIS A CRAN CER D.O. 10/20/2016 Last Documented On 7 9:58AM ; [facility] Myalgia 3 MONTH CHECK with CHRIS A CRAN CER D.O. 10/20/2016 Last Documented On 7 9:58AM ; [facility] Atrial fibrillation 1 MONTH CHECK with CHRIS A CRANCER D.O. 09/12/2016 Last Documented On 7 3:31PM ; [facility] Depressive disorder 1 MONTH CHECK with CHRIS A CRANCER D.O. 09/12/2016 Last Documented On 7 3:31PM ; [facility] Low back pain 1 MONTH CHECK with CHRIS A CRAN CER D.O. 09/12/2016 Last Documented On 7 3:31PM ; [facility] Depressive disorder 1 MONTH CHECK with CHRIS A CRANCER D.O. 08/24/2016 Last Documented On 7 3:25PM ; [facility] Low back pain 1 MONTH CHECK with CHRIS A CRAN CER D.O. 08/24/2016 Last Documented On 7 3:25PM ; [facility] Benign essential hypertension PROBLEM VISIT with CHRIS A CRANCER D.O. 08/03/2016 Last Documented On 7 4:55PM ; [facility] Depressive disorder PROBLEM VISIT with CHRIS A CRANCER D.O. 08/03/2016 Last Documented On 7 4:55PM ; [facility] Low back pain -radiating marjorie n left leg to knee with burning PROBLEM VISIT with CHRIS A CRANCER D.O. 08/03/2016 Last Documented On 7 4:55PM ; [facility] Benign essential hypertension 3 MONTH CHECK with CHRIS A CRANCER D.O. 07/22/2016 Last Documented On 7 10:48AM ; [facility] Depressive disorder 3 MONTH CHECK with CHRIS A CRANCER D.O. 07/22/2016 Last Documented On 7 10:48AM ; [facility] Migraine headache without in tractable migraine without status migrainosus 3 MONTH CHECK with CHRIS A CRANCER D.O. 07/22/2016 Last Documented On 7 10:48AM ; [facility] Myalgia 3 MONTH CHECK with CHRIS A CRAN CER D.O. 07/22/2016 Last Documented On 7 10:48AM ; [facility] Anxiety disorder NOS MED CHECK with CHRIS A ASSISTANT DIRECTOR OF SECURITY NCER D.O. 04/22/2016 Last Documented On 6 10:36AM ; [facility] Myalgia MED CHECK with CHRIS A CRANCER D.O. 04/22/2016 Last Documented On 6 10:36AM ; [facility] RIGHT KNEE PAIN MED CHECK with CHRIS A CRANCER D.O. 04/22/2016 Last Documented On 6 10:36AM ; [facility] Gout EMERGENCY ROOM FOLLOW UP with LE STER A CRANCER D.O. 04/04/2016 Last Documented On 6 5:19PM ; [facility] Myalgia EMERGENCY ROOM FOLLOW UP with LE STER A CRANCER D.O. 04/04/2016 Last Documented On 6 5:19PM ; [facility] Arthralgia of the right knee/patella/tibia/fibula 3 MONTH CHECK with CHRIS A CRANCER D.O. 01/28/2016 Last Documented On 6 5:37PM ; [facility] Closed rib fracture 3 MONTH CHECK with CHRIS A CRANCER D.O. 01/28/2016 Last Documented On 6 5:37PM ; [facility] Myalgia 3 MONTH CHECK with CHRIS A CRAN CER D.O. 01/28/2016 Last Documented On 6 5:37PM ; [facility] Arthralgia of the right knee/patella/tibia/fibula PROBLEM VISIT with PHILIPPE MARTINEZ PA-C 01/05/2016 Last Documented On 6 11:24AM ; [facility] Sprained ribs PROBLEM VISIT with PHILIPPE MARTINES PA-C 01/05/2016 Last Documented On 6 11:24AM ; [facility] Depressive disorder 3 MONTH CHECK with CHRIS A CRANCER D.O. 10/21/2015 Last Documented On 6 1:55PM ; [facility] Myalgia 3 MONTH CHECK with CHRIS A CRAN CER D.O. 10/21/2015 Last Documented On 6 1:55PM ; [facility] Chest pain PROBLEM VISIT with CHRIS A CRAN CER D.O. 09/18/2015 Last Documented On 6 5:21PM ; [facility] Atrial fibrillation CHECK UP with CHRIS A CRANC ER D.O. 07/22/2015 Last Documented On 6 6:06PM ; [facility] Benign essential hypertension CHECK UP with LEST ER A CRANCER D.O. 07/22/2015 Last Documented On 6 6:06PM ; [facility] Chest pain CHECK UP with CHRIS A CRANCER D .O. 07/22/2015 Last Documented On 6 6:06PM ; [facility] Depressive disorder CHECK UP with CHRIS A CRANC ER D.O. 07/22/2015 Last Documented On 6 6:06PM ; [facility] Epistaxis will follow CHECK UP with CHRIS A ASSISTANT DIRECTOR OF SECURITY NCER D.O. 07/22/2015 Last Documented On 6 6:06PM ; [facility] Migraine headache CHECK UP with CHRIS A CRANCER D.O. 07/22/2015 Last Documented On 6 6:06PM ; [facility] Atrial fibrillation 3 WK CK-UP with CHRIS A ASSISTANT DIRECTOR OF SECURITY NCER D.O. 05/13/2015 Last Documented On 5 7:11PM ; [facility] Backache 3 WK CK-UP with CHRIS A CRANCER D.O. 05/13/2015 Last Documented On 5 7:11PM ; [facility] Myalgia and myositis 3 WK CK-UP with CHRIS A CR ANCER D.O. 05/13/2015 Last Documented On 5 7:11PM ; [facility] Atrial fibrillation intermittent PROBLEM VISIT w ith CHRIS A CRANCER D.O. 04/22/2015 Last Documented On 5 4:19PM ; [facility] Hematuria PROBLEM VISIT with CHRIS A CRAN CER D.O. 04/22/2015 Last Documented On 5 4:19PM ; [facility] Pneumonia PROBLEM VISIT with CHRIS A CRAN CER D.O. 04/22/2015 Last Documented On 5 4:19PM ; [facility] Laryngitis PROBLEM VISIT with CHRIS A CRAN CER D.O. 04/16/2015 Last Documented On 5 4:23PM ; [facility] Myalgia and myositis PROBLEM VISIT with CHRIS A CRANCER D.O. 04/16/2015 Last Documented On 5 4:23PM ; [facility] Viral infection PROBLEM VISIT with CHRIS A CRAN CER D.O. 04/16/2015 Last Documented On 5 4:23PM ; [facility] Backache 2 WK CK-UP with CHRIS A CRANCER D.O. 04/13/2015 Last Documented On 5 6:48PM ; [facility] Viral infection 2 WK CK-UP with CHRIS A CRANCER D.O. 04/13/2015 Last Documented On 5 6:48PM ; [facility] Atrial fibrillation GENERAL OFFICE VISIT with LE STER A CRANCER D.O. 04/01/2015 Last Documented On 5 2:55PM ; [facility] Backache GENERAL OFFICE VISIT with CHRIS A CRANCER D.O. 04/01/2015 Last Documented On 5 2:55PM ; [facility] Myalgia and myositis GENERAL OFFICE VISIT with L GEORGE A CRANCER D.O. 04/01/2015 Last Documented On 5 2:55PM ; [facility] Backache FROM A FALL GENERAL OFFICE VISIT with L GEORGE A CRANCER D.O. 03/11/2015 Last Documented On 5 7:13PM ; [facility] Headache syndromes GENERAL OFFICE VISIT with LES TER A CRANCER D.O. 03/11/2015 Last Documented On 5 7:13PM ; [facility] Migraine headache PROBLEM VISIT with CHRIS A CR ANCER D.O. 02/18/2015 Last Documented On 5 6:46PM ; [facility] Pain in limb PROBLEM VISIT with CHRIS A CRAN CER D.O. 02/18/2015 Last Documented On 5 6:46PM ; [facility] Rheumatoid arthritis PROBLEM VISIT with CHRIS A CRANCER D.O. 02/18/2015 Last Documented On 5 6:46PM ; [facility] Atrial fibrillation GENERAL OFFICE VISIT with LE STER A CRANCER D.O. 02/02/2015 Last Documented On 5 5:22PM ; [facility] Depressive disorder GENERAL OFFICE VISIT with LE STER A CRANCER D.O. 02/02/2015 Last Documented On 5 5:22PM ; [facility] Hematuria GENERAL OFFICE VISIT with CHRIS A CRANCER D.O. 02/02/2015 Last Documented On 5 5:22PM ; [facility] Hypercholesterolemia GENERAL OFFICE VISIT with L GEORGE A CRANCER D.O. 02/02/2015 Last Documented On 5 5:22PM ; [facility] Lower backache RIGHT MIDDLE GENERAL OFFI CE VISIT with CHRIS A CRANCER D.O. 02/02/2015 Last Documented On 5 5:22PM ; [facility] Rheumatoid arthritis GENERAL OFFICE VISIT with L GEORGE A CRANCER D.O. 02/02/2015 Last Documented On 5 5:22PM ; [facility] Transient ischemic attack wi thout residual deficits GENERAL OFFICE VISIT with CHRIS A CRANCER D.O. 02/02/2015 Last Documented On 5 5:22PM ; [facility] Atrial fibrillation HOSPITAL FOLLOW UP EXAM with HCRIS A CRANCER D.O. 11/03/2014 Last Documented On 5 4:12PM ; [facility] Drug-induced delirium resolved HOSPITAL FOLLOW UP EXAM with CHRIS A CRANCER D.O. 11/03/2014 Last Documented On 5 4:12PM ; [facility] Migraine headache BASELINE HOSPITAL FOLL OW UP EXAM with CHRIS A CRANCER D.O. 11/03/2014 Last Documented On 5 4:12PM ; [facility] Myalgia HOSPITAL FOLLOW UP EXAM with LES TER A CRANCER D.O. 11/03/2014 Last Documented On 5 4:12PM ; [facility] Atrial fibrillation HOSPITAL FOLLOW UP EXAM with CHRIS A CRANCER D.O. 10/13/2014 Last Documented On 5 11:14AM ; [facility] Depression HOSPITAL FOLLOW UP EXAM with LES TER A CRANCER D.O. 10/13/2014 Last Documented On 5 11:14AM ; [facility] Hypercholesterolemia HOSPITAL FOLLOW UP EXAM wit h CHRIS A CRANCER D.O. 10/13/2014 Last Documented On 5 11:14AM ; [facility] Migraine headache which is improving HOS PITAL FOLLOW UP EXAM with CHRIS A CRANCER D.O. 10/13/2014 Last Documented On 5 11:14AM ; [facility] Skin neoplasm of uncertain b ehavior GOING TO FOLLOW PROBLEM VISIT with CHRIS A CRANCER D.O. 08/22/2014 Last Documented On 5 5:13PM ; [facility] Backache HOSPITAL FOLLOW UP EXAM with LES TER A CRANCER D.O. 07/18/2014 Last Documented On 5 11:38AM ; [facility] Cervicalgia HOSPITAL FOLLOW UP EXAM with LES TER A CRANCER D.O. 07/18/2014 Last Documented On 5 11:38AM ; [facility] Hypercholesterolemia HOSPITAL FOLLOW UP EXAM wit h CHRIS A CRANCER D.O. 07/18/2014 Last Documented On 5 11:38AM ; [facility] Migraine headache HOSPITAL FOLLOW UP EXAM with L GEORGE A CRANCER D.O. 07/18/2014 Last Documented On 5 11:38AM ; [facility] Shoulder joint pain HOSPITAL FOLLOW UP EXAM with CHRIS A CRANCER D.O. 07/18/2014 Last Documented On 5 11:38AM ; [facility] Atrial fibrillation EMERGENCY ROOM FOLLOW UP wit h CHRIS A CRANCER D.O. 06/18/2014 Last Documented On 4 9:48PM ; [facility] Depressive disorder EMERGENCY ROOM FOLLOW UP wit h CHRIS A CRANCER D.O. 06/18/2014 Last Documented On 4 9:48PM ; [facility] Fatty liver EMERGENCY ROOM FOLLOW UP with LE STER A CRANCER D.O. 06/18/2014 Last Documented On 4 9:48PM ; [facility] Hypercholesterolemia EMERGENCY ROOM FOLLOW UP wi th CHRIS A CRANCER D.O. 06/18/2014 Last Documented On 4 9:48PM ; [facility] Nontropical (celiac) sprue EMERGENCY LAURA M FOLLOW UP with CHRIS A CRANCER D.O. 06/18/2014 Last Documented On 4 9:48PM ; [facility] Transient ischemic attack wi thout residual deficits EMERGENCY ROOM FOLLOW UP with CHRIS A CRANCER D.O. 06/18/2014 Last Documented On 4 9:48PM ; [facility] Elevated liver enzymes 3 MONTH CHECK with CHRIS A CRANCER D.O. 05/02/2014 Last Documented On 4 2:02PM ; [facility] Hypertension 3 MONTH CHECK with CHRIS A CRAN CER D.O. 05/02/2014 Last Documented On 4 2:02PM ; [facility] Nontropical (celiac) sprue 3 MONTH CHECK with LE STER A CRANCER D.O. 05/02/2014 Last Documented On 4 2:02PM ; [facility] Rheumatoid arthritis 3 MONTH CHECK with CHRIS A CRANCER D.O. 05/02/2014 Last Documented On 4 2:02PM ; [facility] Rheumatoid arthritis of multiple sites 3 MONTH CHECK with CHRIS A CRANCER D.O. 05/02/2014 Last Documented On 4 2:02PM ; [facility] Transient ischemic attack 3 MONTH CHECK with LES TER A CRANCER D.O. 05/02/2014 Last Documented On 4 2:02PM ; [facility] Elevated liver enzymes 2 WK CK-UP with CHRIS A CRANCER D.O. 03/26/2014 Last Documented On 4 8:36PM ; [facility] Tinea corporis 2 WK CK-UP with CHRIS A CRANCER D.O. 03/26/2014 Last Documented On 4 8:36PM ; [facility] Benign prostatic hypertrophy PROBLEM VISIT with CHRIS A CRANCER D.O. 03/12/2014 Last Documented On 4 3:16PM ; [facility] Elevated liver enzymes PROBLEM VISIT with CHRIS A CRANCER D.O. 03/12/2014 Last Documented On 4 3:16PM ; [facility] Tinea corporis PROBLEM VISIT with CHRIS A CRAN CER D.O. 03/12/2014 Last Documented On 4 3:16PM ; [facility] Dermatitis PROBLEM VISIT with CHRIS A CRAN CER D.O. 01/23/2014 Last Documented On 4 9:24AM ; [facility] Elevated liver enzymes POSSI MADDIE RELATED TO HIS MEDS PROBLEM VISIT with CHRIS A CRANCER D.O. 01/23/2014 Last Documented On 4 9:24AM ; [facility] Fatigue PROBLEM VISIT with CHRIS A CRAN CER D.O. 01/23/2014 Last Documented On 4 9:24AM ; [facility] Hypercholesterolemia PROBLEM VISIT with CHRIS A CRANCER D.O. 01/23/2014 Last Documented On 4 9:24AM ; [facility] Obesity PROBLEM VISIT with CHRIS A CRAN CER D.O. 01/23/2014 Last Documented On 4 9:24AM ; [facility] Rheumatoid arthritis PROBLEM VISIT with CHRIS A CRANCER D.O. 01/23/2014 Last Documented On 4 9:24AM ; [facility] Myalgia and myositis PROBLEM VISIT with CHRIS A CRANCER D.O. 11/27/2013 Last Documented On 4 5:39PM ; [facility] Backache CHECK UP with CHRIS A CRANCER D .O. 10/18/2013 Last Documented On 4 10:38AM ; [facility] Benign essential hypertensio n which is well-controlled CHECK UP with CHRIS A CRANCER D.O. 10/18/2013 Last Documented On 4 10:38AM ; [facility] Depression CHECK UP with CHRIS A CRANCER D .O. 10/18/2013 Last Documented On 4 10:38AM ; [facility] Elevated liver enzymes CHECK UP with CHRIS A CR ANCER D.O. 10/18/2013 Last Documented On 4 10:38AM ; [facility] Obesity CHECK UP with CHRIS A CRANCER D .O. 10/18/2013 Last Documented On 4 10:38AM ; [facility] Rheumatoid arthritis CHECK UP with CHRIS A CRAN CER D.O. 10/18/2013 Last Documented On 4 10:38AM ; [facility] Rhythm disorder INTERMEDIANT AFIB CHECK UP with CHRIS A CRANCER D.O. 10/18/2013 Last Documented On 4 10:38AM ; [facility] Pain in limb LIKELY AN ANKLE SPRAIN PROB GILBERTO VISIT with CHRIS A CRANCER D.O. 09/11/2013 Last Documented On 4 6:10PM ; [facility] Anxiety disorder NOS 1 WK CK-UP with CHRSI A CR ANCER D.O. 09/05/2013 Last Documented On 4 4:11PM ; [facility] Chest pain 1 WK CK-UP with CHRIS A CRANCER D.O. 09/05/2013 Last Documented On 4 4:11PM ; [facility] Hematuria 1 WK CK-UP with CHRIS A CRANCER D.O. 09/05/2013 Last Documented On 4 4:11PM ; [facility] Normal routine history and physical 1 WK CK-UP w ith CHRIS A CRANCER D.O. 09/05/2013 Last Documented On 4 4:11PM ; [facility] Costochondritis (Tietze's syndrome) PROB GILBERTO VISIT with CHRIS A CRANCER D.O. 08/30/2013 Last Documented On 4 10:25AM ; [facility] Depression PROBLEM VISIT with CHRIS A CRAN CER D.O. 08/30/2013 Last Documented On 4 10:25AM ; [facility] Hematuria PROBLEM VISIT with CHRIS A CRAN CER D.O. 08/30/2013 Last Documented On 4 10:25AM ; [facility] Depression which is improving HOSPITAL F OLLOW UP EXAM with CHRIS A CRANCER D.O. 05/24/2013 Last Documented On 3 6:14PM ; [facility] HOSPITAL FOLLOW UP EXAM wit h CHRIS A CRANCER D.O. 05/24/2013 Last Documented On 3 6:14PM ; [facility] Rhythm disorder INTERMED AF HOSPITAL F OLLOW UP EXAM with CHRIS A CRANCER D.O. 05/24/2013 Last Documented On 3 6:14PM ; [facility] Anxiety disorder NOS SICK VISIT with CHRIS A CR ANCER D.O. 04/05/2013 Last Documented On 3 10:24AM ; [facility] Cervicalgia SICK VISIT with CHRIS A CRANCER D.O. 04/05/2013 Last Documented On 3 10:24AM ; [facility] Nontoxic solitary thyroid nodule SICK VISIT with CHRIS A CRANCER D.O. 04/05/2013 Last Documented On 3 10:24AM ; [facility] Anxiety disorder NOS PROBLEM VISIT with CHRIS A CRANCER D.O. 04/02/2013 Last Documented On 3 12:18PM ; [facility] Cervicalgia PROBLEM VISIT with CHRIS A CRAN CER D.O. 04/02/2013 Last Documented On 3 12:18PM ; [facility] Depression PROBLEM VISIT with CHRIS A CRAN CER D.O. 04/02/2013 Last Documented On 3 12:18PM ; [facility] Pneumonia PROBLEM VISIT with CHRIS LEPE CER D.O. 04/02/2013 Last Documented On 3 12:18PM ; [facility] Cervicalgia HOSPITAL FOLLOW UP EXAM with RAFIQ LUCIO ROBERTHCER D.O. 03/29/2013 Last Documented On 3 2:39PM ; [facility] Simple goiter POSSIBLE HOSPITAL FOLLOW UP EXAM w ith CHRIS Albarado ROBERTHCER D.O. 03/29/2013 Last Documented On 3 2:39PM ; [facility] Sleep apnea HOSPITAL FOLLOW UP EXAM with RAFIQ LUCIO ROBERTHCER D.O. 03/29/2013 Last Documented On 3 2:39PM ; [facility] Open wound THE WOUND DOES NO T LOOK INFECTED 3 MONTH CHECK with CHRIS Albarado ANANDA D.O. 02/21/2013 Last Documented On 3 12:01PM ; [facility] POST OP VISIT Non-healing le shen of the skin just below the umbilicus. The CT scan was normal. Exam of the area today shows a 7mm ulcerated lesion with hypertrophied skin edges. Appears somewhat like a pyogenic granuloma vs. basal cell cancer. I discussed with him removing this. PROCEDURE: With the patient supine, the area is cleansed with hibiclens and localized with 4ml of 1% lidocaine with epinephrine. An oval incision made 1cm in width and 3cm in length and carried into the subcutaneous tissue. The lesion was excised completely and removed from the field. The incision was closed with a running suture of 4-0 nylon. Neosporin ointment and a sterile dressing applied. We discussed care of the incision and gave him an appointment for follow up in 1 week to remove sutures and discuss the path report PRE-OP EXAM with CROW SANCHEZ DO 02/08/2013 Last Documented On 3 2:43PM ; [facility] Suture Granuloma umbilical incision CONSULTATION with CROW SANCHEZ DO 01/25/2013 Last Documented On 3 4:00PM ; [facility] Open wound UNCLEAR SITUATION PROBLEM VISIT with CHRIS Albarado ANANDA D.O. 01/23/2013 Last Documented On 3 1:05PM ; [facility] Rheumatoid arthritis CONSULTATION with CHRIS A CRANCER D.O. 12/04/2012 Last Documented On 3 3:53PM ; [facility] Sleep apnea the sleep oximet ry indicates that the oxygen is under 88 % 53 minutes CONSULTATION with CHRIS A CRANCER D.O. 12/04/2012 Last Documented On 3 3:53PM ; [facility] Fatigue SICK VISIT with CHRIS A CRANCER D.O. 11/21/2012 Last Documented On 3 3:48PM ; [facility] Hypercholesterolemia SICK VISIT with CHRIS A CR ANCER D.O. 11/21/2012 Last Documented On 3 3:48PM ; [facility] Obesity SICK VISIT with CHRIS A CRANCER D.O. 11/21/2012 Last Documented On 3 3:48PM ; [facility] Sleep apnea THE SLEEP OXIMET RY INDICATED THAT HE IS BELOW 88% 53 MINUTES SICK VISIT with CHRIS A CRANCER D.O. 11/21/2012 Last Documented On 3 3:48PM ; [facility] Rheumatoid arthritis PROBLEM VISIT with CHRIS A CRANCER D.O. 08/17/2012 Last Documented On 3 4:25PM ; [facility] Sleep apnea PROBLEM VISIT with CHRIS A CRAN CER D.O. 08/17/2012 Last Documented On 3 4:25PM ; [facility] Viral infection PROBLEM VISIT with CHRIS A CRAN CER D.O. 08/17/2012 Last Documented On 3 4:25PM ; [facility] Dyspnea/SOB PROBLEM VISIT with CHRIS A CRAN CER D.O. 07/16/2012 Last Documented On 3 6:52PM ; [facility] Sleep apnea PROBLEM VISIT with CHRIS A CRAN CER D.O. 07/16/2012 Last Documented On 3 6:52PM ; [facility] Anxiety disorder NOS which i s mildly exacerbated THIS APPEARS RELATED TO ENVIRONMENTAL STRESSORS 3 MONTH CHECK with CHRIS A CRANCER D.O. 05/18/2012 Last Documented On 2 6:18PM ; [facility] Rheumatoid arthritis which is stable 3 M ONTH CHECK with CHRISDECKERCER D.O. 05/18/2012 Last Documented On 2 6:18PM ; [facility] Skin neoplasm of uncertain b ehavior UNCLEAR ISSUE 3 MONTH CHECK with CHRISDECKERCER D.O. 05/18/2012 Last Documented On 2 6:18PM ; [facility] Visual disturbances THIS LIK CICI IS RELATED TO THE MULTIPLE MEDS HE IS TAKING AND A POSSIBLE STRESS RELATED ETIOLOGY.HE IS TO CALL THE EYE DR ABOUT THE INTERMEDIANT NATURE OF THE BLURRINESS 3 MONTH CHECK with CHRIS Verena CRANCER D.O. 05/18/2012 Last Documented On 2 6:18PM ; [facility] Viral infection which is resolving SICK VISIT wi CHRIS LEPECER D.O. 04/09/2012 Last Documented On 2 4:35PM ; [facility] Asthma 3 MONTH CHECK with CHRIS A CRAN CER D.O. 02/16/2012 Last Documented On 2 1:50PM ; [facility] Gastritis PROBLEM VISIT with CHRIS A CRAN CER D.O. 12/28/2011 Last Documented On 2 4:51PM ; [facility] Headache syndromes which is inadequately controlled PROBLEM VISIT with CHRIS A CRANCER D.O. 12/28/2011 Last Documented On 2 4:51PM ; [facility] Rheumatoid arthritis PROBLEM VISIT with CHRIS A CRANCER D.O. 12/28/2011 Last Documented On 2 4:51PM ; [facility] Acute pharyngitis TENDER SOFT PALATE PRO BLEM VISIT with CHRIS A CRANCER D.O. 11/16/2011 Last Documented On 2 7:52PM ; [facility] Fatigue PROBLEM VISIT with CHRIS A CRAN CER D.O. 11/16/2011 Last Documented On 2 7:52PM ; [facility] Hyperthyroidism THIS IS A PO SSIBLE DIAGNOSIS. THE PSYCH DR ORDERED A TSH. THE PT WILL GET ANOTHER TSH IN 4 WEEKS PROBLEM VISIT with CHRISDECKERCER D.O. 01/20/2011 Last Documented On 1 5:01PM ; [facility] Rheumatoid arthritis HE IS G ETTING CARE FROM RHEUMATOLOGY PROBLEM VISIT with CHRIS MALAVE D.O. 01/20/2011 Last Documented On 1 5:01PM ; [facility] Acute bronchitis possible diagnosis,antibiotic prescribed SICK VISIT with CHRIS MALAVE D.O. 09/21/2010 Last Documented On 1 3:44PM ; [facility] Myalgia and myositis vit d,b12,folate SI CK VISIT with CHRIS MALAVE D.O. 09/21/2010 Last Documented On 1 3:44PM ; [facility] Nephrolithiasis HE WILL GET [facility]STEAD OF THE [facility] FOLLOW UP EXAM with CHRIS MALAVE D.O. 07/19/2010 Last Documented On 1 6:32PM ; [facility] Nephrolithiasis the stone sh ould pass,he was told to watch his inr in a more regular basis when he is sick. he should get an inr in a few days PROBLEM VISIT with CHRIS MALAVE D.O. 06/29/2010 Last Documented On 0 3:28PM ; [facility] Allergic rhinitis THIS IS A POSSIBLE DIAGNOSIS. FLONASE WILL BE CALLED INTO THE PHARMACY 3 MONTH CHECK with CHRIS MALAVE D.O. 05/24/2010 Last Documented On 0 1:03PM ; [facility] Headache syndromes THE PT ST ATED THAT THIS TYPE OF HEADACHE HAS BEEN HELPED WITH TORODOL IN THE PAST. 3 MONTH CHECK with CHRIS MALAVE D.O. 05/24/2010 Last Documented On 0 1:03PM ; [facility] Acute sinusitis ANTIBIOTICS AND COUGH MED PRESCRIBED. HE IS TO HIS INR MONDAY AM * PHONE CALL with CHRIS MALAVE D.O. 04/26/2010 Last Documented On 0 2:36PM ; [facility] Viral infection SICK VISIT with CHRIS MALAVE D.O. 04/26/2010 Last Documented On 0 3:46PM ; [facility] Skin neoplasm of uncertain b ehavior UNCLEAR DIAGNOSIS. WILL SET UP DR NAVARRO SICK VISIT with CHRIS MALAVE D.O. 04/12/2010 Last Documented On 0 7:57PM ; [facility] Benign prostatic hypertrophy PSA AT [facility] CHECK UP with CHRIS Villa.O. 02/26/2010 Last Documented On 0 2:36PM ; [facility] Coronary artery disease whic h is stable THE PT IS HESITANT TO TAKE THE NITRO SL DUE TO CHEST PAIN. HE WAS TOLD THE RISK OF THE NOT TAKING THE NITRO CHECK UP with CHRIS Villa.O. 02/26/2010 Last Documented On 0 2:36PM ; [facility] Normal routine history and p hysical NEG GUAIC CHECK UP with CHRIS MALAVE D.O. 02/26/2010 Last Documented On 0 2:36PM ; [facility] Rheumatoid arthritis THIS IS BEING FOLLOWED BY A SPECIALIST.F/U IN 3 MONTHS CHECK UP with CHRIS Villa.O. 02/26/2010 Last Documented On 0 2:36PM ; [facility] Disturbance of taste THE PT IS TO SEE HIS NEUROLOGIST PROBLEM VISIT with CHRIS Villa.O. 01/20/2010 Last Documented On 0 6:25PM ; [facility] Orthostatic hypotension IT I S LIKELY RELATED TO HIS MEDS. THE PT IS TO CHANGE POSITIONS IN A CAREFUL MANNER PROBLEM VISIT with CHRIS Villa.Brad. 01/20/2010 Last Documented On 0 6:25PM ; [facility] Angina pectoris THE PT DECLI NA ER VISIT. HE HAS BEEN OFF HIS CARDIO MEDS FOR A FEW DAYS. HE FELT NITRO S.L. HELPED WITH PAIN. HE WAS TOLD TO GET HIS TROPONIN CHECKED AT THE [facility] PROBLEM VISIT with CHRIS Villa.O. 12/04/2009 Last Documented On 0 3:17PM ; [facility] Headache syndromes THE PT BENDER S A HX OF SEVERE HEADACHES HELPED WITH LITHIUM. THE PT WILL BE SENT DR ALEJANDRE PROBLEM VISIT with CHRIS Villa.O. 12/04/2009 Last Documented On 0 3:17PM ; [facility] Abdominal pain--RUQ POSSIBLE COMMON BILE DUCT PROBLEM THE PT WILL LIKELY GET AN ERCP PROBLEM VISIT with CHRIS Villa.Brad. 09/16/2009 Last Documented On 0 9:18AM ; [facility] Chronic reflux esophagitis T HE PT WAS TOLD TO CHECK INTO PHARMACEUTICAL ASSISTANCE FOR HIS NEXIUM. IN THE MEANWHILE HE CAN TRY OTC PRILOSEC. F/U 3 MONTHS PROBLEM VISIT with CHRIS A CRANCER D.O. 09/16/2009 Last Documented On 0 9:18AM ; [facility] Depression SEES PSYCH, BUDDY PEREZ HE CONTINUE TO SEE HIM PROBLEM VISIT with CHRIS A CRANCER D.O. 09/16/2009 Last Documented On 0 9:18AM ; [facility] Rheumatoid arthritis SEVERE SEES A SPECIALIST PROBLEM VISIT with CHRIS A CRANCER D.O. 09/16/2009 Last Documented On 0 9:18AM ; [facility] Chronic major depression CHECK UP with CHRIS A CRANCER D.O. 12/25/2008 Last Documented On 9 11:45PM ; [facility] Depression CHECK UP with CHRIS A CRANCER D .O. 12/25/2008 Last Documented On 9 11:45PM ; [facility] Edema CHECK UP with CHRIS A CRANCER D .O. 12/25/2008 Last Documented On 9 11:45PM ; [facility] [facility] Essential hypertriglyceridemia CHECK UP with LES TER A CRANCER D.O. 12/25/2008 Last Documented On 9 11:45PM ; [facility] Hypercholesterolemia CHECK UP with CHRIS A CRAN CER D.O. 12/25/2008 Last Documented On 9 11:45PM ; [facility] Instructions Includes: Instructions for all patient encounters Instructions to patient Go to the emergency room if condition worsens Last Documented On 0 1:45PM ; [facility] Watch for signs/symptoms of infection Last Documented On 0 1:45PM ; [facility] Go to the emergency room if condition worsens Last Documented On 9 11:33AM ; [facility] Watch for signs/symptoms of infection Last Documented On 9 11:33AM ; [facility] Recommend diet and exercise at least 30 min three times per week Last Documented On 9 11:38AM ; [facility] Go to the emergency room if condition worsens Last Documented On 9 12:11PM ; [facility] Watch for signs/symptoms of infection Last Documented On 9 12:11PM ; [facility] Go to the emergency room if condition worsens Last Documented On 9 2:49PM ; [facility] Watch for signs/symptoms of infection Last Documented On 9 2:49PM ; [facility] Go to the emergency room if condition worsens Last Documented On 9 8:33AM ; [facility] Watch for signs/symptoms of infection Last Documented On 9 8:33AM ; [facility] Go to the emergency room if condition worsens Last Documented On 9 11:05AM ; [facility] Watch for signs/symptoms of infection Last Documented On 9 11:05AM ; [facility] Go to the emergency room if condition worsens Last Documented On 9 1:38PM ; [facility] Watch for signs/symptoms of infection Last Documented On 9 1:38PM ; [facility] Go to the emergency room if condition worsens Last Documented On 9 1:37PM ; [facility] Watch for signs/symptoms of infection Last Documented On 9 1:37PM ; [facility] Recommend diet and exercise at least 30 min three times per week Last Documented On 9 1:41PM ; [facility] Go to the emergency room if condition worsens Last Documented On 9 3:45PM ; [facility] Watch for signs/symptoms of infection Last Documented On 9 3:45PM ; [facility] Go to the emergency room if condition worsens Last Documented On 9 2:35PM ; [facility] Watch for signs/symptoms of infection Last Documented On 9 2:35PM ; [facility] Go to the emergency room if condition worsens Last Documented On 9 2:42PM ; [facility] Watch for signs/symptoms of infection Last Documented On 9 2:42PM ; [facility] Go to the emergency room if condition worsens Last Documented On 9 1:46PM ; [facility] Watch for signs/symptoms of infection Last Documented On 9 1:46PM ; [facility] Go to the emergency room if condition worsens Last Documented On 9 1:27PM ; [facility] Watch for signs/symptoms of infection Last Documented On 9 1:27PM ; [facility] Go to the emergency room if condition worsens Last Documented On 9 2:49PM ; [facility] Watch for signs/symptoms of infection Last Documented On 9 2:49PM ; [facility] Go to the emergency room if condition worsens Last Documented On 9 1:56PM ; [facility] Watch for signs/symptoms of infection Last Documented On 9 1:56PM ; [facility] Go to the emergency room if condition worsens Last Documented On 8 2:21PM ; [facility] Watch for signs/symptoms of infection Last Documented On 8 2:21PM ; [facility] Go to the emergency room if condition worsens Last Documented On 8 2:24PM ; [facility] Watch for signs/symptoms of infection Last Documented On 8 2:24PM ; [facility] Go to the emergency room if condition worsens Last Documented On 8 2:51PM ; [facility] Watch for signs/symptoms of infection Last Documented On 8 2:51PM ; [facility] Go to the emergency room if condition worsens Last Documented On 8 4:12PM ; [facility] Watch for signs/symptoms of infection Last Documented On 8 4:12PM ; [facility] Go to the emergency room if condition worsens Last Documented On 8 2:22PM ; [facility] Watch for signs/symptoms of infection Last Documented On 8 2:22PM ; [facility] Go to the emergency room if condition worsens Last Documented On 8 11:04AM ; [facility] Watch for signs/symptoms of infection Last Documented On 8 11:04AM ; [facility] Go to the emergency room if condition worsens Last Documented On 8 1:27PM ; [facility] Watch for signs/symptoms of infection Last Documented On 8 1:27PM ; [facility] Go to the emergency room if condition worsens Last Documented On 8 1:21PM ; [facility] Watch for signs/symptoms of infection Last Documented On 8 1:21PM ; [facility] Go to the emergency room if condition worsens Last Documented On 8 3:53PM ; [facility] Watch for signs/symptoms of infection Last Documented On 8 3:53PM ; [facility] Go to the emergency room if condition worsens Last Documented On 7 10:46AM ; [facility] Watch for signs/symptoms of infection Last Documented On 7 10:46AM ; [facility] Go to the emergency room if condition worsens Last Documented On 7 3:28PM ; [facility] Go to the emergency room if condition worsens Last Documented On 7 4:27PM ; [facility] Go to the emergency room if condition worsens Last Documented On 7 1:41PM ; [facility] Go to the emergency room if condition worsens Last Documented On 7 1:12PM ; [facility] Go to the emergency room if condition worsens Last Documented On 7 1:35PM ; [facility] Recommend diet and exercise at least 30 min three times per week Last Documented On 5 3:29PM ; [facility] Recommend diet and exercise at least 30 min three times per week Last Documented On 5 10:57AM ; [facility] Go to the emergency room if condition worsens Last Documented On 4 5:27PM ; [facility] Go to the emergency room if condition worsens Last Documented On 4 10:23AM ; [facility] Education and Decision Aids were provided during visit for: Education and counseling Last Documented On 1 2:29PM ; [facility] Education and counseling Last Documented On 0 8:56AM ; [facility] Education and counseling Last Documented On 0 3:04PM ; [facility] Education and counseling Last Documented On 0 1:39PM ; [facility] Education and counseling Last Documented On 9 11:30AM ; [facility] Patient education about a pr oper diet Last Documented On 9 11:38AM ; [facility] Education and counseling Last Documented On 9 12:11PM ; [facility] Education and counseling Last Documented On 9 2:44PM ; [facility] Education and counseling Last Documented On 9 8:27AM ; [facility] Education and counseling Last Documented On 9 10:58AM ; [facility] Education and counseling Last Documented On 9 1:13PM ; [facility] Education and counseling Last Documented On 9 1:34PM ; [facility] Patient education about a pr oper diet Last Documented On 9 1:41PM ; [facility] Education and counseling Last Documented On 9 3:40PM ; [facility] Education and counseling Last Documented On 9 2:14PM ; [facility] Education and counseling Last Documented On 9 2:36PM ; [facility] Education and counseling Last Documented On 9 1:42PM ; [facility] Education and counseling Last Documented On 9 1:26PM ; [facility] Education and counseling Last Documented On 9 2:42PM ; [facility] Education and counseling Last Documented On 9 1:54PM ; [facility] Education and counseling Last Documented On 8 4:31PM ; [facility] Patient's goal is to maintai n normal blood pressure discussed with patient to keep b/p below 140/90 Last Documented On 8 1:31PM ; [facility] Patient education about a pr oper diet -healthy diet Last Documented On 8 1:21PM ; [facility] Patient education about a pr oper diet -Healthy diet encouraged Last Documented On 7 4:27PM ; [facility] Patient education about a pr oper diet -Healthy diet encouraged Last Documented On 7 1:41PM ; [facility] Patient education about a pr oper diet Last Documented On 6 11:44AM ; [facility] Patient education about a pr oper diet encouraged to eat healthy diet Last Documented On 6 9:48AM ; [facility] Discussed concerns about exe rcise encourage to stay active Last Documented On 6 9:48AM ; [facility] Patient education about a pr oper diet Last Documented On 5 3:48PM ; [facility] Patient education about a pr oper diet Last Documented On 5 3:24PM ; [facility] CELIAC DISEASE (Problem) Last Documented On 4 1:38PM ; [facility] Medical Equipment - Implanted Devices Includes: Current and historical Devices No Medical Equipment Recorded Medications Includes: Current and historical Medications Current Medications (continue as prescribed) Potassium Chloride Torri ER 2 0 MEQ Oral Tablet Extended Release 09/21/2020 Provider: CHRIS MALAVE D.O. Diagnosis: TAKE 1 TABLET BY MOUTH DAILY Last Documented On 09/21/2020 4:02PM By ASHISH SMILEY ; [facility] Fluticasone Propionate 50 MCG/ACT Nasal Suspension 08/13/2020 Provider: CHRIS Rubio D.O. Diagnosis: Oth disrd of Eus tachian tube, unspecified ear 2 sprays each nostril once daily. Last Documented On 08/13/2020 2:29PM By JOSE DHILLON ; [facility] Isosorbide Mononitrate ER 30 MG Oral Tablet Extended Release 24 Hour 08/13/2020 Provider: Diagnosis: 1 qdCardiology Last Documented On 08/13/2020 2:17PM By ASHISH SMILEY ; [facility] Vascepa 1 GM Oral Capsule 08/13/2020 Provider: Diagnosis: 2 po BID Last Documented On 08/13/2020 2:20PM By ASHISH SMILEY ; [facility] Leflunomide 10 MG Oral Tablet 08/13/2020 Provider: Diagnosis: 1/2 tab qd Last Documented On 08/13/2020 2:19PM By ASHISH SMILEY ; [facility] SEROquel 300 MG Oral Tablet 08/13/2020 Provider: Diagnosis: 1 qdPsychiatrist Last Documented On 08/13/2020 2:16PM By ASHISH SMILEY ; [facility] Atorvastatin Calcium 40 MG Oral Tablet 08/13/2020 Pr ovider: Diagnosis: 1 qdCardiology Last Documented On 08/13/2020 2:15PM By ASHISH SMILEY ; [facility] Aspirin Adult Low Dose 81 MG Oral Tablet Delayed Relea se 05/19/2020 Provider: Diagnosis: 1 po qdotc Last Documented On 05/19/2020 9:05AM By ASHISH SMILEY ; [facility] HYDROcodone-Acetaminophen 10-325 MG Oral Tablet 2019 Provider: Diagnosis: 1 every 8 hours. Last Documented On 08/14/2019 1:06PM By Carolina Velazco MA ; [facility] Nitrostat 0.4 MG Sublingual Tablet Sublingual 04/11/2019 Provider: CHRIS Andre Diagnosis: Chest pain, unsp ecified as directed ONE TAB AT ONSET OF PAIN AND MAY REPEAT EVERY 5-10 MIN UNTIL 3 DOSE OR RELIEF, TO ER IF THIRD DOSE NEEDED Last Documented On 04/11/2019 12:30PM By DEBBIE SMILEY ; [facility] Naproxen Sodium ER 500 MG Oral Tablet Extended R elease 24 Hour 03/14/2019 Provider: Diagnosis: 1-2 tabs po daily as needed for BENDER Last Documented On 03/14/2019 1:06PM By BRISEIDA ONEILL LPN ; [facility] Svbvp-9-Mfmo Eth Est (Dietary) 1 GM Oral Capsule 03/14 Provider: Diagnosis: Take 2 caps in the a.m. and 2 in the p.m. Last Documented On 03/14/2019 1:11PM By BRISEIDA ONEILL LPN ; [facility] Prazosin HCl 2MG Oral Capsule 02/28/2018 Provider: Diagnosis: 2 mg at bedtime, Psychiatrist, Last Documented On 8 3:58PM By SHOLA SMILEY ; [facility] Cyanocobalamin 2500MCG Sublingual Tablet, sublingual 0 11/14/2017 Provider: Diagnosis: sublingual, every morning Last Documented On 8 10:40AM By SHOLA SMILEY ; [facility] Ascorbic Acid 500MG Oral Tablet 11/14/2017 Provider: Diagnosis: Last Documented On 8 10:39AM By SHOLA SMILEY ; [facility] Fenofibrate 160MG Oral Tablet 11/14/2017 Provider: Diagnosis: Last Documented On 8 10:38AM By SHOLA SMILEY ; [facility] AmLODIPine Besylate 10MG Oral Tablet 11/14/2017 Prov ider: Diagnosis: Last Documented On 8 10:36AM By SHOLA SMILEY ; [facility] SEROquel 300MG Oral Tablet 09/28/2017 Provider: Diagnosis: Take 2 at bedtime Last Documented On 8 1:06PM By SHOLA SMILEY ; [facility] Magnesium 250MG Oral Tablet 07/21/2017 Provider: Diagnosis: Take 2 in the am Last Documented On 8 3:43PM By SHOLA SMILEY ; [facility] Vitamin B-2 100MG Oral Tablet 04/21/2017 Provider: Diagnosis: Take 2 in the morning and 2 at bedtime Last Documented On 7 11:45AM By SHOLA SMILEY ; [facility] Leflunomide 20MG Oral Tablet 04/21/2017 Provider: Diagnosis: Take 1 in the morning Last Documented On 7 11:44AM By SHOLA SMILEY ; [facility] Gabapentin 300MG Oral Capsule 04/21/2017 Provider: Diagnosis: Take 1 in the morning and 2 at bedtime Last Documented On 7 11:43AM By SHOLA SMILEY ; [facility] Sotalol HCl 80MG Oral Tablet 04/21/2017 Provider: Diagnosis: Take 1/2 at bedtime Last Documented On 7 11:46AM By SHOLA SMILEY ; [facility] Melatonin 5MG Oral Tablet 04/21/2017 Provider: Diagnosis: Take 2 at bedtime Last Documented On 7 11:48AM By SHOLA SMILEY ; [facility] Vitamin D3 2000UNIT Oral Tablet 04/21/2017 Provider: Diagnosis: Take 2 in the morning Last Documented On 7 11:48AM By SHOLA SMILEY ; [facility] Topamax 100MG Oral Tablet 01/12/2017 Provider: Diagnosis: 1 po BID-Neurology fills this Last Documented On 01/12/2017 3:39PM By ASHISH SMILEY ; [facility] Warfarin Sodium 5 MG Tablet 07/22/2015 Provider: Diagnosis: Last Documented On 07/22/2015 8:47AM By Ximena SMILEY ; [facility] Past Medications on file Potassium Chloride ER 20 MEQ Oral Tablet Extended Release 05/27/2020 - 09/21/2020 Provider: CHRIS MALAVE D.O. Diagnosis: TAKE 1 TABLET BY MOUTH DAILY Last Documented On 09/21/2020 4:02PM By ASHISH SMILEY ; [facility] Potassium Chloride ER 20 MEQ Oral Tablet Extended Release 04/01/2020 - 05/27/2020 Provider: CHRIS MALAVE D.O. Diagnosis: TAKE 1 TABLET BY MOUTH DAILY Last Documented On 05/27/2020 4:30PM By Briseyda SMILEY ; [facility] Klor-Con M20 20 MEQ Oral Tablet Extended Release 01/10/2020 - 04/01/2020 Provider: CHRIS BHANDARI D.O. Diagnosis: TAKE 1 TABLET BY MOUTH DAILY Last Documented On 04/01/2020 2:02PM By ASHISH SMILEY ; [facility] Fluticasone Propionate 50 MCG/ACT Nasal Suspension 12/16/2019 - 08/13/2020 Provider: CHRIS MALAVE D.O. Diagnosis: Acute sinusitis, unspecified SHAKE LIQUID AND USE 2 SPRAY S IN EACH NOSTRIL EVERY DAY Last Documented On 08/13/2020 2:12PM By ASHISH SMILEY ; [facility] Amoxicillin-Pot Clavulanate 875-125 MG Oral Tablet 11/13/2019 - 01/10/2020 Provider: CHRIS MALAVE D.O. Diagnosis: Acute sinusitis, unspecified 1 PO BID x 10 DAYS Last Documented On 01/10/2020 2:58PM By ASHISH SMILEY ; [facility] Fluticasone Propionate 50 MCG/ACT Nasal Suspension 11/13/2019 - 12/16/2019 Provider: CHRIS MALAVE D.O. Diagnosis: Acute sinusitis, unspecified 2 sprays in each nostril once a day Last Documented On 0 10:32AM By Carolina Velazco MA ; [facility] Klor-Con M20 20 MEQ Oral Tablet Extended Release 09/16/2019 - 01/10/2020 Provider: CHRIS BHANDARI D.O. Diagnosis: TAKE 1 TABLET BY MOUTH DAILY Last Documented On 01/10/2020 3:06PM By ASHISH SMILEY ; [facility] methylPREDNISolone 4 MG Oral Tablet Therapy Pack 08/14/2019 - 01/10/2020 Provider: CHRIS MALAVE D.O. Diagnosis: Pain in left kne e as directed Last Documented On 01/10/2020 2:58PM By ASHISH SMILEY ; [facility] Flutamide 125 MG Oral Capsule 04/11/2019 - 08/13/2020 Provider: Diagnosis: 1/2 tablet daily Last Documented On 08/13/2020 2:18PM By ASHISH SMILEY ; [facility] Potassium Chloride ER 20 MEQ Oral Tablet Extended Release 03/14/2019 - 05/19/2020 Provider: Diagnosis: Last Documented On 05/19/2020 9:04AM By ASHISH SMILEY ; [facility] Zantac 150 MG Oral Tablet 03/12/2019 - 05/16/2019 Prov ider: CHRIS MALAVE D.O. Diagnosis: TAKE 1 TABLET BY MOUTH TWICE DAILY Last Documented On 9 11:15AM By Carolina Velazco MA ; [facility] Klor-Con M20 20 MEQ Oral Tablet Extended Release 03/08/2019 - 09/16/2019 Provider: CHRIS BHANDARI D.O. Diagnosis: TAKE 1 TABLET BY MOUTH DAILY Last Documented On 09/16/2019 2:22PM By ASHISH SMILEY ; [facility] Doxycycline Monohydrate 100MG Oral Capsule 02/20/2019 - 03/14/2019 Provider: CHRIS MALAVE D.O. Diagnosis: Testicular pain, unspecified 1 po BID x 7 days Last Documented On 03/14/2019 12:57PM By BRISEIDA ONEILL LPN ; [facility] Isosorbide Dinitrate 20MG Oral Tablet 02/20/2019 - 05/2021 Provider: Diagnosis: Last Documented On 08/13/2020 2:13PM By ASHISH SMILEY ; [facility] Doxepin HCl 25MG Oral Capsule 02/20/2019 - 08/13/2020 Provider: Diagnosis: at bedtime. Last Documented On 08/13/2020 2:14PM By ASHISH SMILEY ; [facility] Klor-Con M20 Oral Tablet Extended Release 12/19/2018 - 03/08/2019 Provider: CHRIS MALAVE D.O. Diagnosis: TAKE 1 TABLET BY MOUTH DAILY Last Documented On 03/08/2019 9:59AM By ASHISH SMILEY ; [facility] Zantac 150MG Oral Tablet 11/21/2018 - 03/12/2019 Provi kev: CHRIS MALAVE D.O. Diagnosis: TAKE 1 TABLET BY MOUTH TWICE A DAY Last Documented On 03/12/2019 1:30PM By Carolina Velazco MA ; [facility] Doxycycline Hyclate 100MG Oral Capsule 11/19/2018 - 02/20/2019 Provider: CHRIS MALAVE D.O. Diagnosis: Pneumonia, unspe cified organism 1 po BID x 7 days Last Documented On 02/20/2019 1:08PM By Carolina Velazco MA ; [facility] Klor-Con M20 Oral Tablet, controlled-release 10/01/2018 - 12/19/2018 Provider: CHRIS MALAVE D.O. Diagnosis: TAKE 1 TABLET BY MOUTH DAILY-Fill when due Last Documented On 9 6:03PM By SHOLA SMILEY ; [facility] Cyclobenzaprine HCl 10MG Oral Tablet 09/21/2018 - 09/01 Provider: Diagnosis: Take 1 tablet by mouth 3 tony es daily as needed for Muscle Spasms, Neurosurgeon Last Documented On 09/21/2018 2:38PM By ASHISH SMILEY ; [facility] Skelaxin 800MG Oral Tablet 09/21/2018 - 01/10/2020 Provider: CHRIS MALAVE D.O. Diagnosis: Low back pain 1 PO TID-stop the flexeril (Stay off the Ativan) Last Documented On 01/10/2020 2:59PM By ASHISH SMILEY ; [facility] HYDROcodone-Acetaminophen 5-325MG Oral Tablet 09/22/19 19 - 03/14/2019 Provider: Diagnosis: Take 2 tablets by mouth every 6 hours as needed for pain, Neurosurgeon Last Documented On 03/14/2019 1:17PM By BRISEIDA ONEILL LPN ; [facility] Zantac 150MG Oral Tablet 09/20/2018 - 11/21/2018 Provi kev: CHRIS MALAVE D.O. Diagnosis: TAKE 1 TABLET BY MOUTH TWICE A DAY Last Documented On 11/21/2018 5:01PM By ASHISH SMILEY ; [facility] Tylenol with Codeine #3 300-30MG Oral Tablet 08/28/2018 - 01/10/2020 Provider: CHRIS Rubio D.O. Diagnosis: 1 PO TID PRN #21 Last Documented On 01/10/2020 2:59PM By ASHISH SMILEY ; [facility] Augmentin 875-125MG Oral Tablet 08/09/2018 - 09/21/2018 Provider: CHRIS MALAVE D.O. Diagnosis: Acute sinusitis, unspecified 1 po BID x 10 days Last Documented On 9 1:52PM By SHOLA SMILEY ; [facility] Tylenol with Codeine #3 300-30MG Oral Tablet 08/09/2018 - 08/28/2018 Provider: CHRIS Rubio D.O. Diagnosis: 1 PO TID PRN #[id number] Last Documented On 08/28/2018 11:00AM By CHRIS DONALD [facility] Percocet 10-325MG Oral Tablet 07/25/2018 - 08/09/2018 Provider: CHRIS MALAVE D.O. Diagnosis: 1 po qid prn, waiting to get into a neurosurgeon Last Documented On 9 2:03PM By SHOLA SMILEY ; [facility] Hydrocodone-Acetaminophen 10 -325MG Oral Tablet 07/20/2018 - 09/21/2018 Provider: CHRIS MALAVE D.O. Diagnosis: Low back pain 1 po up to QID PRN pain for low back pain DX:M54.5 This is short term, pt is being referred to Neurosurgeon. Last Documented On 9 1:56PM By SHOLA SMILEY ; [facility] Hydrocodone-Acetaminophen 7. 5-325MG Oral Tablet 07/13/2018 - 07/20/2018 Provider: CHRIS MALAVE D.O. Diagnosis: Low back pain 1 po q 4-6 hrs prn-Short ter m, Pt is having low back. He is being set up with a Neurosurgeon for probable surgery. Last Documented On 07/20/2018 1:53PM By ASHISH SMILEY ; [facility] Tamsulosin HCl 0.4MG Oral Capsule, conventional 07/12/2018 - 03/14/2019 Provider: CHRIS BRAVO D.O. Diagnosis: TAKE ONE CAPSULE BY MOUTH AT BEDTIME Last Documented On 03/14/2019 1:16PM By BRISEIDA ONEILL LPN ; [facility] Klor-Con M20 Oral Tablet, controlled-release 07/12/2018 - 10/01/2018 Provider: CHRIS MALAVE D.O. Diagnosis: TAKE 1 TABLET BY MOUTH DAILY Last Documented On 10/01/2018 1:09PM By ASHISH SMILEY ; [facility] PredniSONE 10MG Oral Tablet 07/09/2018 - 08/09/2018 Pr ovider: CHRIS MALAVE D.O. Diagnosis: Low back pain 4 qd x 1 d., 3 qd x 2 d., 2 qd x 2 d., 1 qd x 2 d. don't take other anti inflammatories with this med. Last Documented On 9 2:03PM By SHOLA SMILEY ; [facility] Hydrocodone-Acetaminophen 7. 5-325MG Oral Tablet 07/04/2018 - 07/13/2018 Provider: CHRIS MALAVE D.O. Diagnosis: Low back pain 1 po q 4-6 hrs prn-Short ter m, Pt is having low back/abd.pain, is being set up with a ct scan and will f/u on next Monday Last Documented On 07/13/2018 1:43PM By ASHISH SMILEY ; [facility] Zantac 150MG Oral Tablet 05/14/2018 - 09/20/2018 Provi kev: CHRIS MALAVE D.O. Diagnosis: TAKE 1 TABLET BY MOUTH TWICE A DAY Last Documented On 9 1:54PM By SHOLA SMILEY ; [facility] Topamax 25MG Oral Tablet 05/14/2018 - 07/09/2018 Provi kev: CHRIS LEPECER D.O. Diagnosis: One tablet twice a day along with the 100 mg to 125 mg-One time fill only Last Documented On 9 2:07PM By SHOLA SMILEY ; [facility] Topamax 100MG Oral Tablet 05/14/2018 - 07/09/2018 Prov ider: CHRIS MALAVE D.O. Diagnosis: One tablet twice a day-One time fill Last Documented On 9 2:07PM By SHOLA SMILEY ; [facility] MethylPREDNISolone 4MG Oral Tablet Therapy Pack 04/13/2018 - 07/09/2018 Provider: CHRIS MALAVE D.O. Diagnosis: Pain in right kn ee as directed Last Documented On 9 2:08PM By SHOLA SMILEY ; [facility] Tamsulosin HCl 0.4MG Oral Capsule 03/23/2018 - 07/12/2018 Provider: CHRIS MALAVE D.O. Diagnosis: TAKE ONE CAPSULE BY MOUTH AT BEDTIME Last Documented On 07/12/2018 3:51PM By ASHISH SMILEY ; [facility] MethylPREDNISolone 4MG Oral Tablet Therapy Pack 03/14/2018 - 07/09/2018 Provider: CHRIS MALAVE D.O. Diagnosis: Cervicalgia as directed Last Documented On 9 2:08PM By SHOLA SIMLEY ; [facility] Klor-Con M20 Oral Tablet Extended Release 03/06/2018 - 07/12/2018 Provider: CHRIS MALAVE D.O. Diagnosis: TAKE 1 TABLET BY MOUTH DAILY Last Documented On 07/12/2018 3:57PM By ASHISH SMILEY ; [facility] PredniSONE 10MG Oral Tablet 02/28/2018 - 03/14/2018 Pr ovider: CHRIS MALAVE D.O. Diagnosis: Cervicalgia 4 QD X 1 D., 3 QD X 2 D., 2 QD X 2 D., 1 QD X 2 D., START THIS ON THURSDAY MORNING. Last Documented On 8 2:08PM By SHOLA SMILEY ; [facility] Zantac 150MG Oral Tablet 01/24/2018 - 05/14/2018 Provi kev: CHRIS Albarado CRANCER D.O. Diagnosis: TAKE 1 TABLET TWICE A DAY Last Documented On 05/14/2018 4:07PM By ASHISH SMILEY ; [facility] Zantac 150MG Oral Tablet 11/20/2017 - 01/24/2018 Provi kev: CHRIS Albarado CRANCER D.O. Diagnosis: TAKE 1 TABLET TWICE A DAY Last Documented On 01/24/2018 11:52AM By ASHISH SMILEY ; [facility] Tamsulosin HCl 0.4MG Oral Capsule, conventional 11/20/2017 - 03/23/2018 Provider: CHRIS GaoOThai Diagnosis: TAKE ONE CAPSULE BY MOUTH AT BEDTIME Last Documented On 03/23/2018 3:31PM By ASHISH SMILEY ; [facility] Oxybutynin Chloride 5MG Oral Tablet 11/14/2017 - 03/01 Provider: Diagnosis: As needed for pain for 7 days Last Documented On 8 10:54AM By SHOLA SMILEY ; [facility] Atorvastatin Calcium 40MG Oral Tablet 11/14/2017 - 05/2021 Provider: Diagnosis: Every evening Last Documented On 08/13/2020 2:14PM By ASHISH SMILEY ; [facility] Ezetimibe 10MG Oral Tablet 11/14/2017 - 03/01/2018 Pro vider: Diagnosis: Last Documented On 8 10:52AM By SHOLA SMILEY ; [facility] Klor-Con M20 Oral Tablet Extended Release 11/01/2017 - 03/06/2018 Provider: CHRIS GaoOThai Diagnosis: TAKE 1 TABLET BY MOUTH DAILY Last Documented On 8 1:03PM By SHOLA SMILEY ; [facility] Zantac 150MG Oral Tablet 10/17/2017 - 11/20/2017 Provi kev: CHRIS Albarado CRANCER D.O. Diagnosis: TAKE 1 TABLET TWICE A DAY Last Documented On 8 4:52PM By SHOLA SMILEY ; [facility] Tylenol with Codeine #3 300-30MG Oral Tablet 10/10/2017 - 01/11/2018 Provider: ANA Bboo PA-C Diagnosis: TAKE 1 TABLET BY MOUTH EVERY 6 HOURS NEEDED Last Documented On 8 2:05PM By SHOLA SMILEY ; [facility] Doxycycline Hyclate 100MG Oral Tablet 10/09/2017 - 11/14/2017 Provider: CHRIS MALAVE D.O. Diagnosis: Hematuria, unspe cified One tablet twice a day Last Documented On 8 10:34AM By SHOLA SMILEY ; [facility] Norvasc 10MG Oral Tablet 10/09/2017 - 11/14/2017 Provi kev: Diagnosis: [place] Last Documented On 8 10:36AM By SHOLA SMILEY ; [facility] Zetia 10MG Oral Tablet 09/28/2017 - 11/14/2017 Provide r: Diagnosis: Take 5 mg a day Last Documented On 8 10:44AM By SHOLA SMILEY ; [facility] Tylenol with Codeine #3 300-30MG Oral Tablet 09/21/2017 - 10/10/2017 Provider: CHRIS Rubio D.O. Diagnosis: TAKE 1 TABLET BY MOUTH EVERY 6 HOURS NEEDED Last Documented On 8 4:24PM By ANA AVELAR PA-C ; [facility] SEROquel 300MG Oral Tablet 09/18/2017 - 09/28/2017 Pro vider: Diagnosis: Take 1 in the morning and 2 at night Last Documented On 8 1:06PM By SHOLA SMILEY ; [facility] Zantac 150MG Oral Tablet 08/31/2017 - 10/17/2017 Provi kev: CHRIS MALAVE D.O. Diagnosis: One tablet twice a day Last Documented On 10/17/2017 3:37PM By TEAGAN SMILEY ; [facility] Klor-Con M20 Oral Tablet, controlled-release 08/04/2017 - 11/01/2017 Provider: CHRIS MALAVE D.O. Diagnosis: TAKE 1 TABLET BY MOUTH DAILY Last Documented On 11/01/2017 4:31PM By ASHISH SMILEY ; [facility] Tamsulosin HCl 0.4MG Oral Capsule, conventional 08/04/2017 - 11/20/2017 Provider: CHRIS BRAVO D.O. 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 Diagnosis: Pneumonia, unspe cified organism 1 po BID x 10 days-Stop the Levaquin Last Documented On 8 1:10PM By SHOLA SMILEY ; [facility] Tamsulosin HCl 0.4MG Oral Capsule, conventional 07/21/2017 - 08/11/2017 Provider: Diagnosis: Last Documented On 8 10:42AM By SHOLA SMILEY ; [facility] Flonase Allergy Relief 50MCG/ACT Nasal Suspension 06/20/2017 - 01/10/2020 Provider: CHRIS MALAVE D.O. Diagnosis: Unspecified Eust achian tube disorder, unspecified ear 2 sprays each nostril once daily Last Documented On 01/10/2020 2:58PM By ASHISH SMILEY ; [facility] Tylenol with Codeine #3 300-30MG Oral Tablet 06/16/2017 - 09/21/2017 Provider: CHRIS Rubio D.O. Diagnosis: TAKE 1 TABLET BY MOUTH EVERY 6 HOURS NEEDED Last Documented On 09/21/2017 5:01PM By CHRIS DONALD [facility] Topamax 25MG Oral Tablet 04/21/2017 - 02/28/2019 Provi kev: Diagnosis: Last Documented On 02/28/2019 11:05AM By ASHISH SMILEY ; [facility] Verapamil HCl ER 240MG Oral Capsule Extended Release 24 Hour 04/21/2017 - 11/14/2017 Provider: Diagnosis: 1/2 in the morning if pulse is over 60 Last Documented On 8 10:43AM By SHOLA SMILEY ; [facility] Ativan 1MG Oral Tablet 04/21/2017 - 09/21/2018 Provide r: Diagnosis: Take 1 in the morning and 2 at bedtime Last Documented On 09/21/2018 2:29PM By ASHISH SMILEY ; [facility] GuanFACINE HCl ER 1MG Oral T ablet Extended Release 24 Hour 04/21/2017 - 02/28/2018 Provider: Diagnosis: Last Documented On 8 3:58PM By SHOLA SMILEY ; [facility] Tylenol with Codeine #3 300-30MG Oral Tablet 04/21/2017 - 06/16/2017 Provider: CHRIS Rubio D.O. Diagnosis: TAKE 1 TABLET BY MOUTH EVERY 6 HOURS NEEDED Last Documented On 06/16/2017 3:23PM By CHRIS MALAVE DO ; [facility] Zantac 150MG Oral Tablet 04/21/2017 - 09/18/2017 Provi kev: Diagnosis: Last Documented On 8 1:11PM By SHOLA SMILEY ; [facility] Klor-Con M20 Oral Tablet Extended Release 04/14/2017 - 08/04/2017 Provider: CHRIS MALAVE D.O. Diagnosis: One tablet daily Last Documented On 08/04/2017 11:46AM By ASHISH SMILEY ; [facility] Tylenol with Codeine #3 300-30MG Oral Tablet 03/29/2017 - 04/21/2017 Provider: CHRIS Rubio D.O. Diagnosis: TAKE 1 TABLET BY MOUTH EVERY 6 HOURS NEEDED Last Documented On 04/21/2017 11:04AM By ASHISH SMILEY ; [facility] Silvadene 1% External Cream 02/28/2017 - 05/19/2020 Provider: CHRIS MALAVE D.O. Diagnosis: Sunburn, unspeci fied apply a thin layer to affect ed area up to twice a day prn. Last Documented On 05/19/2020 9:04AM By ASHISH SMILEY ; [facility] Klor-Con M20 Oral Tablet Extended Release 01/12/2017 - 04/21/2017 Provider: Diagnosis: IS TO START BACK ON. PT IN. HE WILL CALL WHEN NE EDS A REFILL Last Documented On 7 10:40AM By SHOLA SMILEY ; [facility] NexIUM 40MG Oral Capsule Delayed Release 01/12/2017 - 04/21/2017 Provider: CHRIS MALAVE D.O. Diagnosis: 1 PO QD Last Documented On 7 10:41AM By SHOLA SMILEY ; [facility] Hydrocodone-Acetaminophen 7.5-325MG Oral Tablet 01/12/2017 - 06/20/2017 Provider: CHRIS MALAVE D.O. Diagnosis: Pain in left shoulder 1 po q 4-6 hours prn pain, max 5 pills a day Last Documented On 7 10:15AM By SHOLA SMILEY ; [facility] Rexulti 0.5MG Oral Tablet 01/05/2017 - 01/12/2017 Prov ider: Diagnosis: Given by Psychiatrist Last Documented On 01/12/2017 3:52PM By ASHISH SMILEY ; [facility] Tylenol with Codeine #3 300-30MG Oral Tablet 01/04/2017 - 03/29/2017 Provider: CHRIS Rubio D.O. Diagnosis: TAKE 1 TABLET BY MOUTH EVERY 6 HOURS NEEDED Last Documented On 03/29/2017 2:37PM By CHRIS MALAVE DO ; [facility] Klor-Con M20 Oral Tablet, controlled-release 12/20/2016 - 01/05/2017 Provider: CHRIS MALAVE D.O. Diagnosis: TAKE 1 BY MOUTH DAILY Last Documented On 01/05/2017 12:12PM By CASANDRA ARROYO CMA ; [facility] Carisoprodol 350MG Oral Tablet 11/30/2016 - 01/05/2017 Provider: CHRIS MALAVE D.O. Diagnosis: TAKE 1 BY MOUTH TWICE DAILY Last Documented On 01/05/2017 12:12PM By CASANDRA ARROYO CMA ; [facility] RaNITidine HCl 150MG Oral Tablet 11/29/2016 - 01/05/2017 Provider: CHRIS MALAVE D.O. Diagnosis: One tablet twice a day Last Documented On 01/05/2017 12:10PM By CASANDRA ARROYO CMA ; [facility] Tylenol with Codeine #3 300-30MG Oral Tablet 11/25/2016 - 01/04/2017 Provider: CHRIS Rubio D.O. Diagnosis: TAKE 1 TABLET BY MOUTH EVERY 6 HOURS NEEDED Last Documented On 01/04/2017 1:38PM By CHRIS MALAVE DO ; [facility] Tylenol with Codeine #3 300-30MG Oral Tablet 10/10/2016 - 11/25/2016 Provider: CHRIS Rubio D.O. Diagnosis: TAKE 1 TABLET BY MOUTH EVERY 6 HOURS NEEDED Last Documented On 11/25/2016 1:16PM By CHRIS MALAVE DO ; [facility] PredniSONE 10MG Oral Tablet 09/12/2016 - 10/20/2016 Pr ovider: CHRIS MALAVE D.O. Diagnosis: 4 po qd x 1 day, 3 po qd x 2 days, 2 po qd x 2 days, 1 po qd x 2 days. Last Documented On 7 3:44PM By SHOLA SMILEY ; [facility] Tylenol with Codeine #3 300-30MG Oral Tablet 09/09/2016 - 10/10/2016 Provider: CHRIS Rubio D.O. Diagnosis: TAKE 1 TABLET BY MOUTH EVERY 6 HOURS NEEDED Last Documented On 10/10/2016 2:56PM By CHRIS MALAVE DO ; [facility] GuanFACINE HCl 1MG Oral Tablet 08/24/2016 - 01/05/2017 Provider: Diagnosis: Given by Alexandru Russo Last Documented On 01/05/2017 12:12PM By CASANDRA ARROYO CMA ; [facility] Leflunomide 10MG Oral Tablet 08/24/2016 - 04/21/2017 P rovider: Diagnosis: Given by Yessica Vaughan Last Documented On 7 11:44AM By SHOLA SMILEY ; [facility] Sotalol HCl 80MG Oral Tablet 08/24/2016 - 06/20/2017 P rovider: Diagnosis: Take 1 by mouth every mornin g and take 1/2 by mouth every evening, Given by Sandra Dang Last Documented On 7 10:16AM By SHOLA SMILEY ; [facility] LORazepam 1MG Oral Tablet 08/24/2016 - 01/05/2017 Prov ider: Diagnosis: Take 1 by mouth daily and 2 at bedtime, Given by Alexandru Russo Last Documented On 01/05/2017 12:09PM By CASANDRA ARROYO CMA ; [facility] Tamsulosin HCl 0.4MG Oral Capsule, conventional 08/24/2016 - 01/05/2017 Provider: Diagnosis: Given by Dena Cooper Last Documented On 01/05/2017 12:10PM By CASANDRA ARROYO CMA ; [facility] Magnesium Oxide 400MG Oral Tablet 08/24/2016 - 017 Provider: Diagnosis: Given by Prince Wood Last Documented On 01/05/2017 12:09PM By CASANDRA ARROYO CMA ; [facility] Topiramate 25MG Oral Tablet 08/24/2016 - 01/05/2017 Pr ovider: Diagnosis: Take 4 tabs twice a day, Given by Prince Wood Last Documented On 01/05/2017 12:10PM By CASANDRA ARROYO CMA ; [facility] Verapamil HCl ER 240MG Oral Capsule, extended-release 24 hour 08/24/2016 - 01/05/2017 Provider: Diagnosis: Take 1/2 in the am and 1/2 in the pm, Given by Shannan Wood Last Documented On 01/05/2017 12:09PM By CASANDRA ARROYO CMA ; [facility] Melatonin 5MG Oral Tablet 08/24/2016 - 01/05/2017 Prov ider: Diagnosis: OTC Last Documented On 01/05/2017 12:12PM By CASANDRA ARROYO CMA ; [facility] Co Q-10 Plus Red Yeast Rice 60-600MG Oral Capsule, conventional 08/24/2016 - 01/05/2017 Provider: Diagnosis: OTC Last Documented On 7 11:37AM By SHOLA SMILEY ; [facility] Vitamin C 500MG Oral Tablet 08/24/2016 - 01/05/2017 Pr ovider: Diagnosis: OTC Last Documented On 01/05/2017 12:09PM By CASANDRA ARROYO CMA ; [facility] Vitamin E 400UNIT Oral Capsule, conventional 7 - 01/05/2017 Provider: Diagnosis: OTC Last Documented On 01/05/2017 12:09PM By CASANDRA ARROYO CMA ; [facility] Super B-Complex Oral Tablet 08/24/2016 - 01/05/2017 Pr ovider: Diagnosis: OTC Last Documented On 01/05/2017 12:10PM By CASANDRA ARROYO CMA ; [facility] Fish Oil 1000MG Oral Capsule, conventional 08/24/2016 - 01/05/2017 Provider: Diagnosis: OTC Last Documented On 7 11:37AM By SHOLA SMILEY ; [facility] Glucosamine Complex Oral Tablet 08/24/2016 - 7 Provider: Diagnosis: OTC Last Documented On 01/05/2017 12:12PM By CASANRDA ARROYO CMA ; [facility] Vitamin B-2 100MG Oral Tablet 08/24/2016 - 01/05/2017 Provider: Diagnosis: Take 2 twice a day, Given by Prince Wood Last Documented On 01/05/2017 12:09PM By CASANDRA ARROYO CMA ; [facility] PredniSONE 10MG Oral Tablet 08/03/2016 - 08/24/2016 Provider: CHRIS MALAVE D.O. Diagnosis: Low back pain 4 po qd x 2 days, 3 po qd x 2 days, 2 po qd x 2 days, 1 po qd x 2 days Last Documented On 7 1:08PM By SHOLA SMILEY ; [facility] Carisoprodol 350MG Oral Tablet 07/27/2016 - 11/30/2016 Provider: CHRIS MALAVE D.O. Diagnosis: TAKE 1 BY MOUTH TWICE DAILY Last Documented On 11/30/2016 10:03AM By CHRIS MALAVE DO ; [facility] Klor-Con M20 Oral Tablet, controlled-release 07/27/2016 - 12/20/2016 Provider: CHRIS MALAVE D.O. Diagnosis: TAKE 1 BY MOUTH DAILY Last Documented On 7 8:28AM By SHOLA SMILEY ; [facility] HydroCHLOROthiazide 12.5MG Oral Tablet 07/27/2016 - 01/05/2017 Provider: CHRIS MALAVE D.O. Diagnosis: Essential (prima ry) hypertension TAKE 1 BY MOUTH DAILY Last Documented On 7 11:36AM By SHOLA SMILEY ; [facility] Gabapentin 300 MG Capsule 07/22/2016 - 04/21/2017 Prov ider: Diagnosis: 1 cap. daily in the PM Last Documented On 7 11:44AM By SHOLA SMILEY ; [facility] Tylenol with Codeine #3 300-30 MG Tablet 07/18/2016 - 09/09/2016 Provider: CHRIS MALAVE D.O. Diagnosis: TAKE 1 TABLET BY MOUTH EVERY 6 HOURS NEEDED Last Documented On 09/09/2016 1:25PM By CHRIS MALAVE DO ; [facility] Carisoprodol 350 MG Tablet 05/20/2016 - 07/27/2016 Pro vider: CHRIS MALAVE D.O. Diagnosis: One tablet twice a day Last Documented On 07/27/2016 6:55PM By ASHISH SMILEY ; [facility] Klor-Con M20 20 MEQ Tablet, controlled-release 05/20/2016 - 07/27/2016 Provider: CHRIS MALAVE D.O. Diagnosis: One tablet daily Last Documented On 07/27/2016 8:35AM By ASHISH SMILEY ; [facility] HydroCHLOROthiazide 12.5 MG Tablet 05/20/2016 - 07/27/2016 Provider: CHRIS MALAVE D.O. Diagnosis: Essential (prima ry) hypertension TAKE ONE CAPSULE BY MOUTH DAILY Last Documented On 07/27/2016 8:34AM By ASHISH SMILEY ; [facility] Klor-Con M20 20 MEQ Tablet, controlled-release 1 - 07/22/2016 Provider: Diagnosis: increased to 20 meq while in the hospital Last Documented On 7 3:41PM By SHOLA SMILEY ; [facility] Percocet 5-325 MG Tablet 04/22/2016 - 01/05/2017 Provi kev: Diagnosis: Given by following right knee surgery Last Documented On 01/05/2017 12:11PM By CASANDRA ARROYO CMA ; [facility] Tylenol with Codeine #3 300-30 MG Tablet 04/13/2016 - 07/18/2016 Provider: CHRIS MALAVE D.O. Diagnosis: 1 every 6 hours as needed Last Documented On 07/18/2016 3:22PM By CHRIS MALAVE DO ; [facility] HydroCHLOROthiazide 12.5 MG Tablet 04/13/2016 - 05/20/2016 Provider: CHRSI MALAVE D.O. Diagnosis: Essential (prima ry) hypertension TAKE ONE CAPSULE BY MOUTH DAILY Last Documented On 6 8:29AM By SHOLA SMILEY ; [facility] Indomethacin ER 75 MG Capsule Extended Release 1 - 04/04/2016 Provider: Diagnosis: Given by [facility] Last Documented On 04/04/2016 11:53AM By ASHISH SMILEY ; [facility] [employer]GER 10 MG Tablet Dispersible 04/04/2016 - 01/05 Provider: Diagnosis: Q-2 hr x 3/ 24 hr, Given by [facility] Last Documented On 01/05/2017 12:12PM By CASANDRA ARROYO CMA ; [facility] RaNITidine HCl 150 MG Tablet 03/11/2016 - 11/29/2016 P rovider: CHRIS MALAVE D.O. Diagnosis: One tablet twice a day Last Documented On 7 3:57PM By SHOLA SMILEY ; [facility] Carisoprodol 350 MG Tablet 03/03/2016 - 05/20/2016 Pro vider: CHRIS MALAVE D.O. Diagnosis: One tablet twice a day Last Documented On 05/20/2016 5:13PM By ASHISH SMILEY ; [facility] HydroCHLOROthiazide 12.5 MG Tablet 02/18/2016 - 04/13/2016 Provider: CHRIS MALAVE D.O. Diagnosis: Essential (prima ry) hypertension TAKE ONE CAPSULE BY MOUTH DAILY Last Documented On 04/13/2016 1:13PM By ASHISH SMILEY ; [facility] Klor-Con 10 10 MEQ Tablet, controlled-release 02/02/2016 - 07/22/2016 Provider: CHRIS MALAVE D.O. Diagnosis: TAKE ONE HALF TABLET BY MOUTH DAILY IN THE [facility] Last Documented On 7 3:43PM By SHOLA SMILEY ; [facility] PredniSONE 10 MG Tablet 01/28/2016 - 04/04/2016 Provid er: CHRIS MALAVE D.O. Diagnosis: Pain in right kn ee 3 po qd x 2 days, 2 po qd x 2 days, 1 po qd x 2 days Last Documented On 6 11:07AM By SHOLA SMILEY ; [facility] Carisoprodol 350 MG Tablet 01/27/2016 - 03/03/2016 Pro vider: CHRIS MALAVE D.O. Diagnosis: One tablet twice a day Last Documented On 03/03/2016 12:00PM By CHRIS MALAVE DO ; [facility] HydroCHLOROthiazide 12.5 MG Tablet 01/18/2016 - 02/18/2016 Provider: CHRIS MALAVE D.O. Diagnosis: Essential (prima ry) hypertension TAKE ONE TABLET BY MOUTH DAILY Last Documented On 02/18/2016 1:08PM By ASHISH SMILEY ; [facility] Tylenol with Codeine #3 300-30 MG Tablet 01/06/2016 - 04/13/2016 Provider: CHRIS MALAVE D.O. Diagnosis: 1 every 6 hours as needed Last Documented On 04/13/2016 4:38PM By CHRIS MALAVE DO ; [facility] Pennsaid 2 % Solution 01/05/2016 - 01/28/2016 Provider: PHILIPPE MARTINEZ PA-C Diagnosis: Pain in right kn ee Apply to right knee BID Last Documented On 6 1:09PM By SHOLA SMILEY ; [facility] Tamsulosin HCl 0.4 MG Capsule, conventional 01/01/2016 - 08/24/2016 Provider: CHRIS BRAVO D.O. Diagnosis: TAKE TWO CAPSULES BY MOUTH EVERY MORNING Last Documented On 7 1:19PM By SHOLA SMILEY ; [facility] Tylenol with Codeine #3 300-30 MG Tablet 12/09/2015 - 01/06/2016 Provider: CHRIS MALAVE D.O. Diagnosis: 1 every 6 hours as needed Last Documented On 01/06/2016 10:27AM By ASHISH SMILEY ; [facility] Hydrochlorothiazide 12.5 MG Tablet 12/02/2015 - 01/18/2016 Provider: CHRIS MALAVE D.O. Diagnosis: Essential (prima ry) hypertension TAKE ONE TABLET BY MOUTH DAILY Last Documented On 01/18/2016 5:09PM By ASHISH SMILEY ; [facility] Carisoprodol 350 MG Tablet 12/02/2015 - 01/05/2016 Pro vider: CHRIS MALAVE D.O. Diagnosis: 1 IN AM & PM DR CARRILLO prev filled Last Documented On 01/05/2016 10:46AM By DEBBIE SMILEY ; [facility] Diazepam 2 MG Tablet 11/25/2015 - 01/05/2016 Provider: CHRIS MALAVE D.O. Diagnosis: TAKE ONE TABLET BY MOUTH CANDE RY DAY AT BEDTIME NEEDED FOR INSOMNIA Last Documented On 01/05/2016 10:47AM By DEBBIE SMILEY ; [facility] Diazepam 2 MG Tablet 11/11/2015 - 11/25/2015 Provider: CHRIS MALAVE D.O. Diagnosis: TAKE ONE TABLET BY MOUTH CANDE RY DAY AT BEDTIME NEEDED FOR INSOMNIA Last Documented On 11/25/2015 3:29PM By ASHISH VENCES Verena ; [facility] Hydrochlorothiazide 12.5 MG Tablet 11/03/2015 - 12/02/2015 Provider: CHRIS MALAVE D.O. Diagnosis: Essential (prima ry) hypertension One tablet daily Last Documented On 12/02/2015 4:59PM By CHRIS MALAVE DO ; [facility] Diazepam 2 MG Tablet 11/02/2015 - 11/11/2015 Provider: CHRIS MALAVE D.O. Diagnosis: TAKE ONE TABLET BY MOUTH CANDE RY DAY AT BEDTIME NEEDED FOR INSOMNIA Last Documented On 11/11/2015 4:54PM By CHRIS MALAVE DO ; [facility] Carisoprodol 350 MG Tablet 10/21/2015 - 12/02/2015 Pro vider: CHRIS MALAVE D.O. Diagnosis: 1 IN AM & PM DR CARRILLO prev filled Last Documented On 12/02/2015 4:38PM By CHRIS MALAVE DO ; [facility] Diazepam 2 MG Tablet 10/21/2015 - 11/02/2015 Provider: CHRIS MALAVE D.O. Diagnosis: TAKE ONE TABLET BY MOUTH CANDE RY DAY AT BEDTIME NEEDED FOR INSOMNIA Last Documented On 11/02/2015 1:48PM By CHRIS MALAVE DO ; [facility] Tylenol with Codeine #3 300-30 MG Tablet 10/21/2015 - 12/09/2015 Provider: CHRIS MALAVE D.O. Diagnosis: 1 every 6 hours as needed Last Documented On 12/09/2015 2:33PM By CHRIS MALAVE DO ; [facility] Cyclobenzaprine HCl 10 MG Tablet 10/21/2015 - 10/21/2015 Provider: CHRIS MALAVE D.O. Diagnosis: One tablet at bed time Last Documented On 10/21/2015 10:05AM By ASHISH SMILEY ; [facility] Diazepam 2 MG Tablet 10/13/2015 - 10/21/2015 Provider: CHRIS MALAVE D.O. Diagnosis: TAKE ONE TABLET BY MOUTH CANDE RY DAY AT BEDTIME NEEDED FOR INSOMNIA Last Documented On 10/21/2015 10:07AM By ASHISH SMILEY ; [facility] Hydrochlorothiazide 12.5 MG Tablet 10/08/2015 - 11/03/2015 Provider: CHRIS MALAVE D.O. Diagnosis: Essential (prima ry) hypertension One tablet daily Last Documented On 11/03/2015 8:12AM By ASHISH SMILEY ; [facility] Carisoprodol 350 MG Tablet 09/23/2015 - 10/21/2015 Pro vider: CHRIS MALAVE D.O. Diagnosis: 1 IN AM & PM DR MOSLEY Last Documented On 10/21/2015 1:24PM By ASHISH SMILEY ; [facility] Tamsulosin HCl 0.4 MG Capsule 08/24/2015 - 01/01/2016 Provider: CHRIS MALAVE D.O. Diagnosis: TAKE TWO CAPSULES BY MOUTH EVERY MORNING Last Documented On 01/01/2016 5:00PM By ASHISH SMILEY ; [facility] Carisoprodol 350 MG Tablet 08/14/2015 - 09/23/2015 Pro vider: CHRIS MALAVE D.O. Diagnosis: 1 IN AM & PM DR MOSLEY Last Documented On 09/23/2015 6:25PM By CHRIS DONALD [facility] LORazepam 2 MG Tablet 07/22/2015 - 08/24/2016 Provider : Diagnosis: 1/2 QAM, 1/2 AT 2PM, 1 QHS Last Documented On 7 1:20PM By SHOLA SMILEY ; [facility] Dicyclomine HCl 10 MG Capsule, conventional 07/22/2015 - 01/05/2017 Provider: Diagnosis: Last Documented On 01/05/2017 12:12PM By CASANDRA ARROYO CMA ; [facility] Diclofenac Sodium 1.5 % Solution 07/22/2015 - 01/28/20 Provider: Diagnosis: TRANSDERMAL QID Last Documented On 01/28/2016 1:35PM By ASHISH SMILEY ; [facility] Venlafaxine HCl ER 150 MG Ta blet, extended-release 24 hour 07/22/2015 - 08/13/2020 Provider: Diagnosis: 2 QD Last Documented On 08/13/2020 2:13PM By ASHISH SMILEY ; [facility] Hydrocodone-Acetaminophen 5-325 MG Tablet 07/22/2015 - 01/28/2016 Provider: Diagnosis: 1-2 Q 4-6 HRS PRN Last Documented On 01/28/2016 1:34PM By ASHISH SMILEY ; [facility] Topamax 50 MG Tablet 07/22/2015 - 08/24/2016 Provider: Diagnosis: Last Documented On 7 1:16PM By SHOLA SMILEY ; [facility] Klor-Con 10 10 MEQ Tablet, controlled-release 07/17/2015 - 02/02/2016 Provider: CHRIS MALAVE D.O. Diagnosis: TAKE ONE HALF TABLET BY MOUTH DAILY IN THE [facility] Last Documented On 6 9:13AM By SHOLA SMILEY ; [facility] Tylenol with Codeine #3 300-30 MG Tablet 06/16/2015 - 10/21/2015 Provider: CHRIS MALAVE D.O. Diagnosis: 1 every 6 hours as needed Last Documented On 10/21/2015 10:06AM By ASHISH SMILEY ; [facility] Tylenol with Codeine #3 300-30 MG Tablet 2015 - 06/16/2015 Provider: CHRIS MALAVE D.O. Diagnosis: 1 every 6 hours as needed Last Documented On 06/16/2015 2:11PM By ASHISH SMILEY ; [facility] Venlafaxine HCl ER 150 MG Ca psule Extended Release 24 Hour 05/13/2015 - 04/22/2016 Provider: Diagnosis: 2 IN AM Last Documented On 6 2:59PM By SHOLA SMILEY ; [facility] Gabapentin 300 MG Capsule 05/13/2015 - 07/22/2016 Prov ider: Diagnosis: Last Documented On 07/22/2016 4:42PM By ASHISH SMILEY ; [facility] Fluticasone Propionate 50 MCG/ACT Suspension 04/16/2015 - 10/21/2015 Provider: CHRIS MALAVE D.O. Diagnosis: 2 sprays each nostril qd Last Documented On 6 9:34AM By SHOLA SMILEY ; [facility] Cyclobenzaprine HCl 10 MG Tablet 04/13/2015 - 10/21/2015 Provider: CHRIS MALAVE D.O. Diagnosis: One tablet at bed time Last Documented On 10/21/2015 9:44AM By ASHISH SMILEY ; [facility] Tamsulosin HCl 0.4 MG Capsule 04/13/2015 - 08/24/2015 Provider: CHRIS MALAVE D.O. Diagnosis: TAKE TWO CAPSULES BY MOUTH EVERY MORNING Last Documented On 08/24/2015 4:20PM By CHRIS MALAVE DO ; [facility] Sotalol HCl 80 MG Tablet 04/13/2015 - 08/24/2016 Provi kev: CHRIS MALAVE D.O. Diagnosis: TAKE 1 TABLET BY MOUTH EVERY MORING AND IN THE EVENING Last Documented On 7 1:21PM By SHOLA SMILEY ; [facility] Tylenol with Codeine #3 300-30 MG Tablet 03/19/2015 - 2015 Provider: CHRIS MALAVE D.O. Diagnosis: 1 every 6 hours as needed Last Documented On 2015 2:48PM By ASHISH SMILEY ; [facility] Cyclobenzaprine HCl 10 MG Tablet 03/19/2015 - 04/13/2015 Provider: CHRIS MALAVE D.O. Diagnosis: One tablet at bed time Last Documented On 04/13/2015 4:35PM By TAMMY SMILEY ; [facility] Carisoprodol 350 MG Tablet 02/18/2015 - 01/28/2016 Pro vider: Diagnosis: 1 IN AM & PM DR MOSLEY Last Documented On 6 1:05PM By SHOLA SMILEY ; [facility] Verapamil HCl 80 MG Tablet 02/02/2015 - 08/24/2016 Pro vider: Diagnosis: 1 AM AND [address] HEALY Last Documented On 7 1:13PM By SHOLA SMILEY ; [facility] PredniSONE 5 MG Tablet 02/02/2015 - 02/18/2015 Provide r: CHRIS MALAVE D.OThai Diagnosis: 3 PO QD X 1 DAY, 2 PO QD X 2 DAYS, 1 PO QD X 2 D AYS Last Documented On 02/18/2015 3:41PM By TAMMY SMILEY ; [facility] Clindamycin Phosphate 1 % Solution 02/02/2015 - 2015 Provider: Diagnosis: PRN 2 X DAYS BUMPS ON SCALP AND ARMS AND LEGS, Last Documented On 07/22/2015 8:39AM By Ximena SMILEY ; [facility] Capzasin-HP 0.1 % Cream 02/02/2015 - 02/18/2015 Provid er: Diagnosis: APPLY TO NECK FOR HEADACHES PRN, DR MARRERO Last Documented On 02/18/2015 3:33PM By TAMMY SMILEY ; [facility] Linzess 290 MCG Capsule 02/02/2015 - 01/05/2017 Provid er: Diagnosis: 1 CAPSULE [address] ANUSHA VIDES Last Documented On 01/05/2017 12:09PM By CASANDRA ARROYO CMA ; [facility] Carisoprodol 350 MG Tablet 02/02/2015 - 02/18/2015 Pro vider: Diagnosis: 1 TO 3 X PER DAY PRN DR MOSLEY Last Documented On 02/18/2015 3:40PM By TAMMY SMILEY ; [facility] B2 100 MG Tablet 02/02/2015 - 07/22/2015 Provider: Diagnosis: 2 AM AND [address] UGARTE Last Documented On 07/22/2015 8:38AM By Ximena SMILEY ; [facility] Klor-Con 10 10 MEQ Tablet, controlled-release 12/26/2014 - 07/17/2015 Provider: CHRIS MALAVE D.O. Diagnosis: 1/2 IN THE PM Last Documented On 07/17/2015 4:44PM By CHRIS MALAVE DO ; [facility] MagOx 400 400 (241.3 Mg) MG Tablet 12/26/2014 - 08/24/2016 Provider: CHRIS MALAVE D.O. Diagnosis: TAKE 400 MG BY MOUTH DAILY Last Documented On 7 1:17PM By SHOLA SMILEY ; [facility] Tamsulosin HCl 0.4 MG Capsule, conventional 11/26/2014 - 04/13/2015 Provider: CHRIS BRAVO D.O. Diagnosis: TAKE TWO CAPSULES BY MOUTH EVERY MORNING Last Documented On 04/13/2015 4:40PM By TAMMY SMILEY ; [facility] Sotalol HCl 80 MG Tablet 11/19/2014 - 04/13/2015 Provi kev: CHRIS MALAVE D.O. Diagnosis: TAKE 1 TABLET BY MOUTH EVERY MORING AND IN THE EVENING Last Documented On 04/13/2015 4:40PM By TAMMY SMILEY ; [facility] LORazepam 1 MG Tablet 10/13/2014 - 07/22/2015 Provider : Diagnosis: 1 TABLET AM AND ONE TABLET PM, [facility] Last Documented On 07/22/2015 8:43AM By Ximena SMILEY ; [facility] Voltaren 1 % Gel (jelly) 10/13/2014 - 04/04/2016 Provi kev: Diagnosis: DR MAHMOOD, PT MAY USE UP TO FOUR TIMES A DAY Last Documented On 04/04/2016 11:52AM By ASHISH SMILEY ; [facility] Depakote ER 500 MG Tablet, e xtended-release 24 hour 10/13/2014 - 08/24/2016 Provider: Diagnosis: TAKE 2 AM AND [address] HEALY Last Documented On 7 1:24PM By SHOLA SMILEY ; [facility] Welchol 625 MG Tablet 10/13/2014 - 08/24/2016 Provider : Diagnosis: 1 TABLET TWICE A DAY, DR KIRKLAND Last Documented On 7 1:23PM By SHOLA SMILEY ; [facility] Divalproex Sodium 500 MG Tablet, enteric coated 10/10/2014 - 10/13/2014 Provider: Diagnosis: Last Documented On 10/13/2014 10:59AM By TAMMY SMILEY ; [facility] Oxycodone-Acetaminophen 10-3 25 MG Tablet 09/26/2014 - 07/22/2015 Provider: CHRIS MALAVE D.O. Diagnosis: as directed, 1 PO Q 4 HRS PRN Last Documented On 07/22/2015 8:37AM By Ximena SMILEY ; [facility] Topamax 100 MG Tablet 09/26/2014 - 07/22/2015 Provider : Diagnosis: TAKE 50 MG BY MOUTH 2 TIMES DAILY Last Documented On 07/22/2015 8:45AM By Ximena SMILEY ; [facility] Riboflavin 100 MG Capsule, conventional 09/26/2014 - 0 01/05/2017 Provider: Diagnosis: TAKE 200 MG BY MOUTH 2 TIMES DAILY FOR 180 DAYS Last Documented On 01/05/2017 12:10PM By CASANDRA ARROYO CMA ; [facility] Ranitidine HCl 75 MG Tablet 09/26/2014 - 04/22/2016 Pr ovider: Diagnosis: TAKE 150 MG BY MOUTH NIGHTLY Last Documented On 6 2:58PM By SHOLA SMILEY ; [facility] SEROquel 300 MG Tablet 09/26/2014 - 09/18/2017 Provide r: Diagnosis: TAKE 600 MG BY MOUTH NIGHTLY Last Documented On 8 1:12PM By SHOLA SMILEY ; [facility] Compazine 25 MG Suppository 09/26/2014 - 07/22/2015 Pr ovider: Diagnosis: 1 SUPP BY RECTAL ROUTE DAILY NEEDED FOR NAUSE A Last Documented On 07/22/2015 8:39AM By Ximena SMIELY ; [facility] [place] 3 1200 MG Capsule, conventional 09/26/2014 - 12/2016 Provider: Diagnosis: TAKE 1200 MG BY MOUTH 2 TIMES DAILY Last Documented On 01/05/2017 12:12PM By CASANDRA ARROYO CMA ; [facility] Nortriptyline HCl 10 MG Capsule, conventional 09/27/19 15 - 01/05/2017 Provider: Diagnosis: TAKE 25 MG BY MOUTH NEEDED Last Documented On 01/05/2017 12:12PM By CASANDRA ARROYO CMA ; [facility] MagOx 400 400 (241.3 Mg) MG Tablet 09/26/2014 - 2015 Provider: Diagnosis: TAKE 400 MG BY MOUTH DAILY Last Documented On 6 11:08AM By SHOLA SMILEY ; [facility] Lisinopril 10 MG Tablet 09/26/2014 - 07/22/2015 Provid er: Diagnosis: TAKE 5MG BY MOUTH DAILY Last Documented On 07/22/2015 8:42AM By Ximena SMILEY ; [facility] Cephalexin 500 MG Capsule, conventional 09/23/2014 - 07/22/2015 Provider: BOZENA MCPHERSON MD Diagnosis: Last Documented On 07/22/2015 8:38AM By Ximena SMILEY ; [facility] Verapamil HCl 40 MG OR TABS 07/22/2014 - 02/02/2015 Pr ovider: Diagnosis: Last Documented On 02/02/2015 2:57PM By LONNIE SMILEY ; [facility] Remicade 100 MG IV SOLR 07/22/2014 - 05/13/2015 Provid er: Diagnosis: 6 Q 4 WEEKS Last Documented On 05/13/2015 11:55AM By TAMMY SMILEY ; [facility] Nitrostat 0.4 MG SL SUBL 07/22/2014 - 01/05/2017 Provi kev: Diagnosis: PRN Last Documented On 01/05/2017 12:12PM By CASANDRA ARROYO CMA ; [facility] Vitamin E 400 UNIT OR CAPS 07/22/2014 - 07/22/2015 Provider: Diagnosis: Last Documented On 07/22/2015 8:39AM By Ximena SMILEY ; [facility] Acidophilus Probiotic OR TABS 07/22/2014 - 07/22/2015 Provider: Diagnosis: 1 IN PM Last Documented On 07/22/2015 8:38AM By Ximena SMILEY ; [facility] Klor-Con 10 10 MEQ OR TBCR 07/22/2014 - 07/22/2015 Pro vider: Diagnosis: 1/2 IN THE PM Last Documented On 07/22/2015 8:41AM By Ximena SMILEY ; [facility] Fish Oil 1200 MG OR CAPS 07/22/2014 - 07/22/2015 P rovider: Diagnosis: Last Documented On 07/22/2015 8:39AM By Ximena SMILEY ; [facility] Welchol 625 MG OR TABS 07/22/2014 - 09/26/2014 Provide r: Diagnosis: Last Documented On 09/26/2014 3:04PM By LONNIE SMILEY ; [facility] Venlafaxine HCl ER 150 MG OR CP24 07/22/2014 - 015 Provider: Diagnosis: 2 IN AM Last Documented On 05/13/2015 11:55AM By TAMMY SMILEY ; [facility] Gabapentin 300 MG OR CAPS 07/22/2014 - 05/13/2015 Prov ider: Diagnosis: Last Documented On 05/13/2015 11:53AM By TAMMY SMILEY ; [facility] Tamsulosin HCl 0.4 MG OR CAPS 07/07/2014 - 11/26/2014 Provider: CHRIS MALAVE D.O. Diagnosis: TAKE TWO CAPSULES BY MOUTH EVERY MORNING Last Documented On 11/26/2014 1:39PM By CHRIS MALAVE DO ; [facility] Warfarin Sodium 10 MG OR TABS 06/30/2014 - 07/22/2015 Provider: CHRIS MALAVE D.O. Diagnosis: 1 IN PM GATEWAYCARDIO OR DIRECTED Last Documented On 07/22/2015 8:46AM By Ximena SMILEY ; [facility] Sotalol HCl 80 MG OR TABS 06/30/2014 - 11/19/2014 Prov ider: CHRIS MALAVE D.O. Diagnosis: 1 IN AM AND ONE PM GATEWAY Last Documented On 11/19/2014 12:03PM By LONNIE SMILEY ; [facility] Naproxen Sodium 220 MG OR CAPS 06/18/2014 - 10/13/2014 Provider: Diagnosis: 1 PRN Last Documented On 10/13/2014 10:42AM By LONNIE SMILEY ; [facility] Carisoprodol 350 MG OR TABS 06/18/2014 - 09/26/2014 Pr ovider: Diagnosis: 1 TABLET THREE TIMES A DAY PRN Last Documented On 09/26/2014 3:05PM By LONNIE SMILEY ; [facility] HYDROcodone-Acetaminophen 10-325 MG OR TABS 06/18/2014 - 10/13/2014 Provider: Diagnosis: 1 TABLET EVERY 6 HOURS NEEDED, Last Documented On 10/13/2014 10:41AM By LONNIE SMILEY ; [facility] CoQ-10 200 MG OR CAPS 06/18/2014 - 07/22/2015 Provider : Diagnosis: 1 TABLET IN PM Last Documented On 07/22/2015 8:39AM By Ximena SMILEY ; [facility] Lexapro 20 MG OR TABS 06/18/2014 - 07/22/2015 Provider : Diagnosis: 1 TABLET AM PSYC Last Documented On 07/22/2015 8:42AM By Ximena SMILEY ; [facility] QUEtiapine Fumarate 300 MG OR TABS 06/18/2014 - 2015 Provider: Diagnosis: 2 TABLET AT NIGHT, [place] Last Documented On 07/22/2015 8:45AM By Ximena SMILEY ; [facility] Nortriptyline HCl 25 MG OR CAPS 06/18/2014 - 6 Provider: Diagnosis: 1 IN PM G[place]AY Last Documented On 07/22/2015 8:44AM By Ximena SMILEY ; [facility] Sotalol HCl 80 MG OR TABS 06/18/2014 - 07/22/2014 Prov ider: Diagnosis: 1 IN AM AND ONE PM [place]AY Last Documented On 07/22/2014 4:11PM By TAMMY SMILEY ; [facility] Warfarin Sodium 10 MG OR TABS 06/18/2014 - 07/22/2014 Provider: Diagnosis: 1 IN PM GATEWAYCARDIO Last Documented On 07/22/2014 4:11PM By TAMMY SMILEY ; [facility] Klor-Con 10 10 MEQ OR TBCR 06/03/2014 - 06/18/2014 Pro vider: CHRIS MALAVE D.OThai Diagnosis: TAKE 1/2 TABLET BY MOUTH DAILY DIRECTED Last Documented On 06/18/2014 4:15PM By LONNIE SMILEY ; [facility] Topiramate 100 MG OR TABS 04/08/2014 - 07/22/2015 Prov ider: CHRIS MALAVE D.O. Diagnosis: TAKE 1 TABLET BY MOUTH TWICE A DAY Last Documented On 07/22/2015 8:46AM By Ximena SMILEY ; [facility] Tamsulosin HCl 0.4 MG OR CAPS 04/08/2014 - 07/07/2014 Provider: CHRIS GaoOThai Diagnosis: 2 IN AM Last Documented On 07/07/2014 10:53AM By CHRIS MALAVE DO ; [facility] Clotrimazole-Betamethasone 1-0.05% EX LOTN 03/26/2014 - 06/18/2014 Provider: CHRIS GaoOThai Diagnosis: Dermatophytosis Of Body APPLY BID UP TO 2 WEEKS Last Documented On 06/18/2014 4:15PM By LONNIE SMILEY ; [facility] Tamsulosin HCl 0.4 MG OR CAPS 03/26/2014 - 05/02/2014 Provider: Diagnosis: 2 IN AM Last Documented On 05/02/2014 1:05PM By LONNIE SMILEY ; [facility] Welchol 625 MG OR TABS 03/26/2014 - 07/22/2014 Provide r: Diagnosis: Last Documented On 07/22/2014 4:13PM By TAMMY SMILEY ; [facility] Venlafaxine HCl ER 150 MG OR CP24 03/26/2014 - 015 Provider: Diagnosis: Last Documented On 07/22/2014 4:13PM By TAMMY SMILEY ; [facility] Topiramate 100 MG OR TABS 03/26/2014 - 05/02/2014 Prov ider: CHRIS MALAVE DO Diagnosis: 1/2 AM & 1/2 PM Last Documented On 05/02/2014 1:06PM By LONNIE SMILEY ; [facility] LORazepam 1 MG TABS 03/26/2014 - 06/18/2014 Provider: Diagnosis: Last Documented On 06/18/2014 4:16PM By LONNIE SMILEY ; [facility] Gabapentin 300 MG OR CAPS 03/26/2014 - 07/22/2014 Prov ider: Diagnosis: Last Documented On 07/22/2014 4:12PM By TAMMY SMILEY ; [facility] Escitalopram Oxalate 20 MG OR TABS 03/26/2014 - 2014 Provider: Diagnosis: Last Documented On 07/22/2014 4:11PM By TAMMY SMILEY ; [facility] Carvedilol 12.5 MG OR TABS 01/23/2014 - 06/18/2014 Pro vider: Diagnosis: Last Documented On 06/18/2014 4:17PM By LONNIE SMILEY ; [facility] LORazepam 1 MG TABS 01/23/2014 - 03/26/2014 Provider: Diagnosis: Last Documented On 03/26/2014 1:15PM By TAMMY SMILEY ; [facility] Topiramate 100 MG OR TABS 01/23/2014 - 03/26/2014 Prov ider: CHRIS MALAVE DO Diagnosis: Last Documented On 03/26/2014 1:16PM By TAMMY SMILEY ; [facility] Tamsulosin HCl 0.4 MG OR CAPS 01/23/2014 - 03/26/2014 Provider: Diagnosis: Last Documented On 03/26/2014 1:16PM By TAMMY SMILEY ; [facility] Venlafaxine HCl ER 150 MG OR CP24 01/23/2014 - 014 Provider: Diagnosis: Last Documented On 03/26/2014 1:17PM By TAMMY SMILEY ; [facility] QUEtiapine Fumarate 300 MG OR TABS 01/23/2014 - 2013 Provider: Diagnosis: 07/04 Last Documented On 03/26/2014 1:15PM By TAMMY SMILEY ; [facility] Gabapentin 300 MG OR CAPS 01/23/2014 - 03/26/2014 Prov ider: Diagnosis: Last Documented On 03/26/2014 1:15PM By TAMMY SMILEY ; [facility] Escitalopram Oxalate 20 MG OR TABS 01/23/2014 - 2013 Provider: Diagnosis: Last Documented On 03/26/2014 1:15PM By TAMMY SMILEY ; [facility] Welchol 625 MG OR TABS 12/26/2013 - 03/26/2014 Provide r: Diagnosis: Last Documented On 03/26/2014 1:17PM By TAMMY SMILEY ; [facility] Klor-Con 10 10 MEQ OR TBCR 12/10/2013 - 06/03/2014 Pro vider: CHRIS MALAVE D.O. Diagnosis: TAKE 1/2 TABLET BY MOUTH DAILY DIRECTED Last Documented On 06/03/2014 11:27AM By TAMMY SMILEY ; [facility] Tricor 145 MG OR TABS 12/09/2013 - 01/23/2014 Provider : CHRIS MALAVE D.O. Diagnosis: Last Documented On 01/23/2014 8:34AM By TAMMY SMILEY ; [facility] Atorvastatin Calcium 20 MG O R TABS 12/09/2013 - 01/23/2014 Provider: CHRIS MALAVE D.O. Diagnosis: TAKE 1 TABLET BY MOUTH EVERY DAY Last Documented On 01/23/2014 8:34AM By TAMMY SMILEY ; [facility] Venlafaxine HCl ER 150 MG OR CP24 10/18/2013 - 014 Provider: Diagnosis: Last Documented On 01/23/2014 8:38AM By TAMMY SMILEY ; [facility] QUEtiapine Fumarate 300 MG OR TABS 10/18/2013 - 2013 Provider: Diagnosis: 07/04 Last Documented On 01/23/2014 8:38AM By TAMMY SMILEY ; [facility] Gabapentin 300 MG OR CAPS 10/18/2013 - 01/23/2014 Prov ider: Diagnosis: Last Documented On 01/23/2014 8:37AM By TAMMY SMILEY ; [facility] Escitalopram Oxalate 20 MG OR TABS 10/18/2013 - 2013 Provider: Diagnosis: Last Documented On 01/23/2014 8:35AM By TAMMY SMILEY ; [facility] Venlafaxine HCl ER 150 MG OR CP24 10/18/2013 - 014 Provider: Diagnosis: Last Documented On 10/18/2013 9:42AM By TAMMY SMILEY ; [facility] Tamsulosin HCl 0.4 MG OR CAPS 10/01/2013 - 01/23/2014 Provider: Diagnosis: Last Documented On 01/23/2014 8:38AM By TAMMY SMILEY ; [facility] Topiramate 100 MG OR TABS 09/24/2013 - 01/23/2014 Prov ider: CHRIS CRANCER DO Diagnosis: Last Documented On 01/23/2014 8:38AM By TAMMY SMILEY ; [facility] LORazepam 1 MG TABS 09/09/2013 - 01/23/2014 Provider: Diagnosis: Last Documented On 01/23/2014 8:39AM By TAMMY SMILEY ; [facility] Venlafaxine HCl ER 150 MG OR CP24 08/31/2013 - 014 Provider: Diagnosis: Last Documented On 10/18/2013 9:39AM By TAMMY SMILEY ; [facility] Gabapentin 300 MG OR CAPS 08/23/2013 - 10/18/2013 Prov ider: Diagnosis: Last Documented On 10/18/2013 9:40AM By TAMMY SMILEY ; [facility] Escitalopram Oxalate 20 MG OR TABS 08/23/2013 - 2013 Provider: Diagnosis: Last Documented On 10/18/2013 9:40AM By TAMMY SMILEY ; [facility] Ketorolac Tromethamine 10 MG OR TABS 08/14/2013 - 10/01 Provider: Diagnosis: Last Documented On 10/18/2013 9:41AM By TAMMY SMILEY ; [facility] QUEtiapine Fumarate 300 MG OR TABS 08/12/2013 - 2013 Provider: Diagnosis: Last Documented On 10/18/2013 9:42AM By TAMMY SMILEY ; [facility] Klor-Con 10 10 MEQ OR TBCR 05/28/2013 - 12/10/2013 Pro vider: CHRIS MALAVE D.O. Diagnosis: 1/2 TAB DAILY Last Documented On 12/10/2013 1:12PM By TAMMY SMILEY ; [facility] Zocor 40 MG OR TABS 05/28/2013 - 09/05/2013 Provider: Diagnosis: Last Documented On 09/05/2013 10:11AM By TAMYM SMILEY ; [facility] Lopid 600 MG OR TABS 05/28/2013 - 09/05/2013 Provider: Diagnosis: Last Documented On 09/05/2013 10:12AM By TAMMY SMILEY ; [facility] Klor-Con 10 10 MEQ OR TBCR 05/28/2013 - 08/30/2013 Pro vider: Diagnosis: 1/2 TAB DAILY Last Documented On 08/30/2013 2:31PM By TAMMY SMILEY ; [facility] Excedrin Extra Strength 250-250-65 MG OR TABS 05/24/20 - 07/22/2014 Provider: Diagnosis: Last Documented On 07/22/2014 4:14PM By TAMMY SMILEY ; [facility] Lisinopril 10 MG OR TABS 05/24/2013 - 01/05/2017 Provi kev: KALANI TURCIOS M.D. Diagnosis: 1/2 TAB QD Last Documented On 01/05/2017 12:09PM By CASANDRA ARROYO CMA ; [facility] Fluticasone Propionate 50 MCG/ACT NA SUSP 05/24/2013 - 09/05/2013 Provider: Diagnosis: Last Documented On 09/05/2013 10:13AM By TAMMY SMILEY ; [facility] QUEtiapine Fumarate 300 MG OR TABS 05/24/2013 - 2013 Provider: Diagnosis: 2 TABS AT BEDTIME Last Documented On 09/05/2013 10:16AM By TAMMY SMILEY ; [facility] Vitamin C 500 MG OR TABS 05/24/2013 - 07/22/2015 P rovider: Diagnosis: Last Documented On 07/22/2015 8:39AM By Ximena SMILEY ; [facility] Carvedilol 12.5 MG OR TABS 05/24/2013 - 01/23/2014 Pro vider: Diagnosis: Last Documented On 01/23/2014 8:39AM By TAMMY SMILEY ; [facility] Potassium Chloride ER 10 MEQ OR TBCR 05/20/2013 - 05/24/2013 Provider: CHRIS MALAVE D.O. Diagnosis: 1/2 PILL WED AND MON Last Documented On 05/24/2013 11:30AM By TAMMY SMILEY ; [facility] Gabapentin 300 MG OR CAPS 05/17/2013 - 09/05/2013 Prov ider: Diagnosis: Last Documented On 09/05/2013 10:16AM By TAMMY SMILEY ; [facility] Venlafaxine HCl ER 150 MG OR CP24 05/17/2013 - 014 Provider: Diagnosis: 1 AFTER BREAKFAST AND AFTER LUNCH Last Documented On 09/05/2013 10:16AM By TAMMY SMILEY ; [facility] LORazepam 1 MG TABS 05/17/2013 - 09/05/2013 Provider: Diagnosis: Last Documented On 09/05/2013 10:16AM By TAMMY SMILEY ; [facility] Escitalopram Oxalate 20 MG OR TABS 05/17/2013 - 2013 Provider: Diagnosis: Last Documented On 09/05/2013 10:16AM By TAMMY SMILEY ; [facility] Imuran 50 MG OR TABS 04/15/2013 - 01/23/2014 Provider: Diagnosis: 2 TAB AM & PM Last Documented On 01/23/2014 8:34AM By TAMMY SMILEY ; [facility] Orphenadrine Citrate ER 100 MG OR TB12 04/05/2013 - 05/24/2013 Provider: CHRIS MALAVE D.O. Diagnosis: Last Documented On 05/24/2013 11:27AM By TAMMY SMILEY ; [facility] clonazePAM 0.5 MG OR TABS 04/03/2013 - 05/24/2013 Prov ider: Diagnosis: Last Documented On 05/24/2013 11:28AM By TAMMY SMILEY ; [facility] LORazepam 1 MG TABS 04/03/2013 - 05/24/2013 Provider: Diagnosis: Last Documented On 05/24/2013 11:30AM By TAMMY SMILEY ; [facility] Lisinopril 10 MG OR TABS 04/02/2013 - 05/24/2013 Provi kev: KALANI TURCIOS M.D. Diagnosis: Last Documented On 05/24/2013 11:35AM By TAMMY SMILEY ; [facility] Lipitor 20 MG OR TABS 04/02/2013 - 01/23/2014 Provider : Diagnosis: Last Documented On 01/23/2014 8:40AM By TAMMY SMILEY ; [facility] Rythmol 150 MG OR TABS 04/02/2013 - 05/24/2013 Provide r: Diagnosis: 1 1/2 TAB TID Last Documented On 05/24/2013 11:37AM By TAMMY SMILEY ; [facility] Hydrocodone-Acetaminophen 5-500 MG OR TABS 04/02/2013 - 05/24/2013 Provider: Diagnosis: 1/2 LEFT Last Documented On 05/24/2013 11:32AM By TAMMY SMILEY ; [facility] LORazepam 1 MG TABS 04/02/2013 - 04/03/2013 Provider: Diagnosis: 5 LEFT Last Documented On 04/03/2013 11:00AM By TAMMY SMILEY ; [facility] Norflex 100 MG/ML IJ SOLN 04/02/2013 - 05/24/2013 Prov ider: Diagnosis: 3 LEFT Last Documented On 05/24/2013 11:36AM By TAMMY SMILEY ; [facility] Amoxicillin-Pot Clavulanate 875-125 MG OR TABS 1 - 05/24/2013 Provider: Diagnosis: Last Documented On 05/24/2013 11:29AM By TAMMY SMILEY ; [facility] TORADOL TABS 04/02/2013 - 05/24/2013 Provider: Diagnosis: Last Documented On 05/24/2013 11:37AM By TAMMY SMILEY ; [facility] Ferrous Sulfate 325 (65 Fe) MG OR TABS 04/02/2013 - Provider: Diagnosis: Last Documented On 05/24/2013 11:32AM By TAMMY SMILEY ; [facility] Furosemide 20 MG OR TABS 04/02/2013 - 05/24/2013 Provi kev: Diagnosis: Last Documented On 05/24/2013 11:32AM By TAMMY SMILEY ; [facility] KlonoPIN 0.5 MG OR TABS 04/02/2013 - 04/03/2013 Provid er: Diagnosis: Last Documented On 04/03/2013 10:59AM By TAMMY SMILEY ; [facility] [place] Carbonate ER 300 MG OR TBCR 04/02/2013 - 05/24 Provider: Diagnosis: 2 AM & 2 PM Last Documented On 05/24/2013 11:36AM By TAMMY SMILEY ; [facility] Remicade 100 MG IV SOLR 04/02/2013 - 05/24/2013 Provid er: Diagnosis: INFUSION 6 UNITS Q 5 WEEKS Last Documented On 05/24/2013 11:36AM By TAMMY SMILEY ; [facility] Imuran 50 MG OR TABS 04/02/2013 - 05/24/2013 Provider: Diagnosis: 2 TAB AM & PM Last Documented On 05/24/2013 11:33AM By TAMMY SMILEY ; [facility] Coreg 25 MG OR TABS 04/02/2013 - 05/24/2013 Provider: Diagnosis: 1/2 TAB IN PM Last Documented On 05/24/2013 11:31AM By TAMMY SMILEY ; [facility] Doxycycline Monohydrate 100 MG OR TABS 04/02/2013 - 05/24/2013 Provider: CHRIS MALAVE D.O. Diagnosis: PNEUMONIA, ORGAN ISM NOS Last Documented On 05/24/2013 11:31AM By TAMMY SMILEY ; [facility] Cymbalta 30 MG OR CPEP 04/01/2013 - 04/02/2013 Provide r: CHRIS MALAVE D.O. Diagnosis: Last Documented On 04/02/2013 11:22AM By TAMMY SMILEY ; [facility] predniSONE 10 MG OR TABS 03/29/2013 - 05/24/2013 Provi kev: CHRIS MALAVE D.O. Diagnosis: Cervicalgia 4 PILLS QD X1D, 3 PILLS QD X 2D, 2 PILLS QD X2D, 1 PILL QD X2D Last Documented On 05/24/2013 11:37AM By TMAMY SMILEY ; [facility] Nitrostat 0.4 MG SL SUBL 03/28/2013 - 05/24/2013 Provi kev: Diagnosis: Last Documented On 05/24/2013 11:37AM By TAMMY SMILEY ; [facility] raNITIdine HCl 150 MG OR TABS 03/28/2013 - 07/22/2015 Provider: Diagnosis: Last Documented On 07/22/2015 8:44AM By Ximena SMILEY ; [facility] hydrOXYzine HCl 50 MG OR TABS 03/23/2013 - 05/24/2013 Provider: Diagnosis: Last Documented On 05/24/2013 11:37AM By TAMMY SMILEY ; [facility] Donepezil HCl 10 MG OR TABS 03/23/2013 - 05/24/2013 Pr ovider: Diagnosis: Last Documented On 05/24/2013 11:37AM By TAMMY SMILEY ; [facility] Topiramate 100 MG OR TABS 02/28/2013 - 09/05/2013 Prov ider: CHRIS MALAVE D.O. Diagnosis: TAKE 1 TABLET BY MOUTH TWICE A DAY Last Documented On 09/05/2013 10:15AM By TAMMY SMILEY ; [facility] Donepezil HCl 10 MG OR TABS 02/21/2013 - 04/02/2013 Pr ovider: Diagnosis: Last Documented On 04/02/2013 11:25AM By TAMMY SMILEY ; [facility] Propafenone HCl 150 MG OR TABS 02/15/2013 - 04/02/2013 Provider: Diagnosis: Last Documented On 04/02/2013 11:26AM By TAMMY SMILEY ; [facility] Carvedilol 12.5 MG OR TABS 02/15/2013 - 04/02/2013 Pro vider: Diagnosis: Last Documented On 04/02/2013 11:26AM By TAMMY SMILEY ; [facility] Rapaflo 8 MG OR CAPS 02/15/2013 - 05/24/2013 Provider: Diagnosis: Last Documented On 05/24/2013 11:38AM By TAMMY SMILEY ; [facility] Cymbalta 30 MG OR CPEP 02/15/2013 - 04/02/2013 Provide r: Diagnosis: Last Documented On 04/02/2013 11:18AM By TAMMY SMILEY ; [facility] azaTHIOprine 50 MG OR TABS 02/06/2013 - 04/02/2013 Pro vider: BOZENA LUNA MD Diagnosis: Last Documented On 04/02/2013 11:26AM By TAMMY SMILEY ; [facility] Amoxicillin-Pot Clavulanate 875-125 MG OR TABS 01/29/2013 - 02/21/2013 Provider: CHRIS MALAVE D.O. Diagnosis: OPEN WOUND SITE NOS Last Documented On 02/21/2013 10:35AM By TAMMY SMILEY ; [facility] hydrOXYzine HCl 25 MG OR TABS 01/23/2013 - 04/02/2013 Provider: Diagnosis: Last Documented On 04/02/2013 11:26AM By TAMMY SMILEY ; [facility] Atorvastatin Calcium 20 MG O R TABS 12/07/2012 - 02/21/2013 Provider: CHRIS MALAVE D.O. Diagnosis: TAKE 1 TABLET BY MOUTH EVERY DAY Last Documented On 02/21/2013 10:41AM By TAMMY SMILEY ; [facility] Ketorolac Tromethamine 10 MG OR TABS 11/06/2012 - 05/04 Provider: Diagnosis: Last Documented On 05/28/2013 2:07PM By TAMMY SMILEY ; [facility] Potassium Chloride ER 10 MEQ OR TBCR 11/01/2012 - 05/20/2013 Provider: CHRIS MALAVE D.O. Diagnosis: 1/2 PILL WED AND MON Last Documented On 05/20/2013 4:54PM By TAMYM SMIELY ; [facility] guaiFENesin-Codeine 100-10 MG/5ML OR SYRP 08/17/2012 - 02/21/2013 Provider: CHRIS MALAVE D.O. Diagnosis: VIRAL INFECTION NOS 1 TO 2 TSP PO BID PRN Last Documented On 02/21/2013 10:35AM By TAMMY SMILEY ; [facility] Topiramate 100 MG OR TABS 07/31/2012 - 02/28/2013 Prov ider: CHRIS MALAVE D.O. Diagnosis: TAKE 1 TABLET BY MOUTH TWICE A DAY Last Documented On 02/28/2013 5:10PM By TAMMY SMILEY ; [facility] Potassium Chloride ER 10 MEQ OR TBCR 03/02/2012 - 11/01/2012 Provider: CHRIS MALAVE D.O. Diagnosis: 1/2 PILL WED AND FRI Last Documented On 11/01/2012 10:39AM By CHRIS MALAVE DO ; [facility] Viagra 50 MG OR TABS 02/16/2012 - 02/21/2013 Provider: Diagnosis: Last Documented On 02/21/2013 10:42AM By TAMMY SMILEY ; [facility] Remicade 100 MG IV SOLR 02/16/2012 - 02/21/2013 Provid er: Diagnosis: 6 UNITS 4-6 WEEKS Last Documented On 02/21/2013 10:42AM By TAMMY SMILEY ; [facility] Potassium Chloride ER 10 MEQ OR TBCR 02/16/2012 - 07/03 Provider: Diagnosis: Last Documented On 07/16/2012 3:19PM By TAMMY SMILEY ; [facility] Lisinopril 5 MG OR TABS 02/16/2012 - 04/02/2013 Provid er: KALANI TURCIOS M.D. Diagnosis: Last Documented On 04/02/2013 11:27AM By TAMMY SMILEY ; [facility] KlonoPIN 0.5 MG OR TABS 02/16/2012 - 02/21/2013 Provid er: Diagnosis: Last Documented On 02/21/2013 10:41AM By TAMMY SMILEY ; [facility] ProAir HFA 108 (90 Base) MCG/ACT IN AERS 02/16/2012 - 02/21/2013 Provider: CHRIS MALAVE D.O. Diagnosis: ASTHMA NOS GENERIC IS OK,2 PUFFS QID PRN Last Documented On 02/21/2013 10:41AM By TAMMY SMILEY ; [facility] [place] Carbonate ER 300 MG OR TBCR 02/16/2012 - 04/02 Provider: Diagnosis: Last Documented On 04/02/2013 11:28AM By TAMMY SMILEY ; [facility] Zolpidem Tartrate 10 MG OR TABS 02/16/2012 - 3 Provider: Diagnosis: Last Documented On 02/21/2013 10:42AM By TAMMY SMILEY ; [facility] Vicodin ES 7.5-750 MG OR TABS 02/16/2012 - 02/21/2013 Provider: Diagnosis: Last Documented On 02/21/2013 10:42AM By TAMMY SMILEY ; [facility] Amoxicillin 500 MG OR CAPS 11/16/2011 - 02/16/2012 Provider: CHRIS MALAVE D.O. Diagnosis: ACUTE PHARYNGITI S Last Documented On 02/16/2012 10:13AM By TAMMY SMILEY ; [facility] Nystatin [id number] UNIT/GM EX OINT 01/20/2011 - 2 Provider: Diagnosis: Last Documented On 02/16/2012 11:39AM By TAMMY SMILEY ; [facility] B Complex OR TABS 01/20/2011 - 02/16/2012 Provider: Diagnosis: Last Documented On 02/16/2012 10:55AM By TAMMY SMILEY ; [facility] risperiDONE 3 MG OR TABS 01/20/2011 - 05/24/2013 Provi kev: Diagnosis: 1 qhs Last Documented On 05/24/2013 11:39AM By TAMMY SMILEY ; [facility] Viagra 100 MG OR TABS 01/20/2011 - 02/16/2012 Provider : Diagnosis: Take 1/2 tab 1 hr prior to sexual activity Last Documented On 02/16/2012 11:43AM By TAMMY SMILEY ; [facility] Carvedilol 12.5 MG OR TABS 01/20/2011 - 02/16/2012 Pro vider: Diagnosis: take 1/2 tab am and 1/2 tab pm with food. Last Documented On 02/16/2012 10:56AM By TAMMY SMILEY ; [facility] Cialis 10 MG OR TABS 01/20/2011 - 02/21/2013 Provider: Diagnosis: Last Documented On 02/21/2013 10:42AM By TAMMY SMILEY ; [facility] Triamcinolone Acetonide 0.1% EX CREA 01/20/2011 - 01/31 Provider: Diagnosis: prn Last Documented On 02/16/2012 11:42AM By TAMMY SMILEY ; [facility] Rythmol 150 MG OR TABS 01/20/2011 - 02/21/2013 Provide r: Diagnosis: 1 1/2 tab 3 times daily Last Documented On 02/21/2013 10:43AM By TAMMY SMILEY ; [facility] traMADol HCl 50 MG OR TABS 01/20/2011 - 02/21/2013 Pro vider: Diagnosis: 1-2 tabs po up to 3 times daily prn. Last Documented On 02/21/2013 10:43AM By TAMMY SMILEY ; [facility] Donepezil HCl 5 MG OR TABS 01/20/2011 - 02/21/2013 Pro vider: Diagnosis: Last Documented On 02/21/2013 10:43AM By TAMMY SMILEY ; [facility] Vicodin 10/325 10325 OR TABS 01/20/2011 - 02/16/2012 Provider: Diagnosis: take 1 po q 4-6 hrs prn Last Documented On 02/16/2012 11:43AM By TAMMY SMILEY ; [facility] hydrOXYzine HCl 50 MG OR TABS 01/20/2011 - 01/20/2011 Provider: Diagnosis: Last Documented On 1 3:40PM By JAH MORALEZ MA ; [facility] Clobetasol Propionate 0.05% EX OINT 01/20/2011 - 02/21 Provider: Diagnosis: Last Documented On 02/21/2013 10:42AM By TAMMY SMILEY ; [facility] Topiramate 200 MG OR TABS 01/20/2011 - 02/16/2012 Prov ider: Diagnosis: one po every 12 hrs. Last Documented On 02/16/2012 11:42AM By TAMMY SMILEY ; [facility] Pradaxa 150 MG OR CAPS 01/20/2011 - 06/18/2014 Provide r: Diagnosis: Last Documented On 06/18/2014 4:17PM By LONNIE SMILEY ; [facility] Tricor 145 MG OR TABS 01/20/2011 - 03/26/2014 Provider : Diagnosis: Last Documented On 03/26/2014 1:18PM By TAMMY SMILEY ; [facility] clonazePAM 0.5 MG OR TABS 01/20/2011 - 02/16/2012 Prov ider: Diagnosis: 1 qhs Last Documented On 02/16/2012 11:07AM By TAMMY SMILEY ; [facility] Vicodin 5-500 MG OR TABS 01/20/2011 - 02/16/2012 Provi kev: Diagnosis: Last Documented On 02/16/2012 11:43AM By TAMMY SMILEY ; [facility] Nitrostat 0.4 MG SL SUBL 01/20/2011 - 02/16/2012 Provi kev: Diagnosis: 1 tab every 5 min as needed for chest pain. Last Documented On 02/16/2012 11:38AM By TAMMY SMILEY ; [facility] Ketorolac Tromethamine 10 MG OR TABS 01/20/2011 - 02/01 Provider: Diagnosis: take 1-2 tabs po daily. Last Documented On 02/21/2013 10:43AM By TAMMY SMILEY ; [facility] guaiFENesin-Codeine 100-10 MG/5ML OR SYRP 09/21/2010 - 02/16/2012 Provider: CHRIS MALAVE D.O. Diagnosis: ACUTE SINUSITIS NOS 1 TO 2 TSP PO BID PRN Last Documented On 02/16/2012 11:09AM By TAMMY SMILEY ; [facility] Augmentin 875-125 MG OR TABS 09/21/2010 - 11/16/2011 P rovider: CHRIS MALAVE D.O. Diagnosis: 1 tab bid for 10 days called to pharmacy done Last Documented On 11/16/2011 10:23AM By TAMMY SMILEY ; [facility] Cipro 500 MG OR TABS 07/19/2010 - 02/16/2012 Provider: CHRIS MALAVE D.O. Diagnosis: Calculus Of Kidn ey Last Documented On 02/16/2012 10:57AM By TAMMY SMILEY ; [facility] Cymbalta 60 MG OR CPEP 06/29/2010 - 02/15/2013 Provide r: Diagnosis: qam Last Documented On 02/15/2013 2:16PM By HUNTER ASCENCIO MA ; [facility] Tylenol with Codeine #3 300-30 MG OR TABS 06/29/2010 - 02/21/2013 Provider: Diagnosis: prn Last Documented On 02/21/2013 10:44AM By TAMMY SMILEY ; [facility] Topamax 50 MG OR TABS 06/29/2010 - 02/21/2013 Provider : Diagnosis: Last Documented On 02/21/2013 10:44AM By TAMMY SMILEY ; [facility] Nortriptyline HCl 25 MG OR CAPS 06/29/2010 - 3 Provider: Diagnosis: takes this 2 capsules qhs Last Documented On 04/02/2013 11:19AM By TAMMY SMILEY ; [facility] guaiFENesin-Codeine 100-10 MG/5ML OR SYRP 04/26/2010 - 09/21/2010 Provider: CHRIS MALAVE D.O. Diagnosis: ACUTE SINUSITIS NOS 1 TO 2 TSP PO BID PRN Last Documented On 09/21/2010 12:45PM By CHRIS MALAVE DO ; [facility] Amoxicillin 500 MG OR CAPS 04/26/2010 - 11/16/2011 Provider: CHRIS MALAVE D.O. Diagnosis: ACUTE SINUSITIS NOS Last Documented On 11/16/2011 10:23AM By TAMMY SMILEY ; [facility] Rythmol 150 MG OR TABS 02/26/2010 - 01/20/2011 Provide r: Diagnosis: 1 1/2 TABLET TID Last Documented On 1 3:38PM By JAH MORALEZ MA ; [facility] KlonoPIN 1 MG OR TABS 02/26/2010 - 02/16/2012 Provider : Diagnosis: 1/2 TABLET QHS Last Documented On 02/16/2012 11:11AM By TAMMY SMILEY ; [facility] Coreg 25 MG OR TABS 02/26/2010 - 02/21/2013 Provider: Diagnosis: 1/2 TABLET BID Last Documented On 02/21/2013 10:44AM By TAMMY SMILEY ; [facility] Warfarin Sodium 3 MG OR TABS 02/26/2010 - 01/20/2011 Chad colladoder: Diagnosis: TAKES A TOTAL OF 13MG Last Documented On 1 3:26PM By JAH MORALEZ MA ; [facility] Warfarin Sodium 10 MG OR TABS 02/26/2010 - 01/20/2011 Provider: Diagnosis: TAKES A TOTAL OF 13MG Last Documented On 1 3:26PM By JAH MORALEZ MA ; [facility] Warfarin Sodium 6 MG OR TABS 02/26/2010 - 02/26/2010 P rovider: Diagnosis: TAKES A TOTAL OF 13MG Last Documented On 0 11:59AM By SAMARA RAPHAEL MA ; [facility] Imdur 60 MG OR TB24 02/26/2010 - 01/20/2011 Provider: Diagnosis: Last Documented On 1 3:39PM By JAH MORALEZ MA ; [facility] Vicodin ES 7.5-750 MG OR TABS 02/26/2010 - 01/20/2011 Provider: Diagnosis: Last Documented On 1 3:32PM By JAH MORALEZ MA ; [facility] PriLOSEC OTC 20 MG OR TBEC 02/26/2010 - 01/20/2011 Pro vider: Diagnosis: Last Documented On 1 3:38PM By JAH MORALEZ MA ; [facility] Clotrimazole-Betamethasone 1-0.05% EX LOTN 02/26/2010 - 02/21/2013 Provider: Diagnosis: DIRECTED Last Documented On 02/21/2013 10:44AM By TAMMY SMILEY ; [facility] Zenpep [id number] UNIT OR CPEP 02/26/2010 - 01/20/2011 Prov ider: Diagnosis: DIRECTED Last Documented On 1 3:37PM By JAH MORALEZ MA ; [facility] Imdur 30 MG OR TB24 12/16/2009 - 02/26/2010 Provider: CHRIS MALAVE D.O. Diagnosis: Last Documented On 0 11:54AM By SAMARA RAPHAEL MA ; [facility] RisperDAL 1 MG OR TABS 09/16/2009 - 01/20/2011 Provide r: Diagnosis: Last Documented On 1 3:36PM By JAH MORALEZ MA ; [facility] Warfarin Sodium 3 MG OR TABS 09/16/2009 - 02/26/2010 P rovider: Diagnosis: TAKES A TOTAL OF 9MG CAN VARY Last Documented On 0 12:01PM By SAMARA RAPHAEL MA ; [facility] Warfarin Sodium 6 MG OR TABS 09/16/2009 - 02/26/2010 Chad colladoder: Diagnosis: TAKES A TOTAL OF 9MG CAN VARY Last Documented On 0 11:57AM By SAMARA RAPHAEL MA ; [facility] Remicade 100 MG IV SOLR 09/16/2009 - 02/16/2012 Provid er: Diagnosis: 5 UNITS 4-6 WEEKS Last Documented On 02/16/2012 11:40AM By TAMMY SMILEY ; [facility] Imuran 50 MG OR TABS 09/16/2009 - 02/21/2013 Provider: Diagnosis: Last Documented On 02/21/2013 10:44AM By TAMMY SMILEY ; [facility] Lovaza 1 GM OR CAPS 09/16/2009 - 02/26/2010 Provider: Diagnosis: Last Documented On 0 11:57AM By SAMARA RAPHAEL MA ; [facility] Tricor 145 MG OR TABS 09/16/2009 - 11/16/2011 Provider : Diagnosis: NOON Last Documented On 11/16/2011 10:23AM By TAMMY SMILEY ; [facility] Lipitor 20 MG OR TABS 09/16/2009 - 02/21/2013 Provider : Diagnosis: Last Documented On 02/21/2013 10:44AM By TAMMY SMILEY ; [facility] Cymbalta 60 MG OR CPEP 09/16/2009 - 06/29/2010 Provide r: Diagnosis: 2 CAPS AM Last Documented On 0 11:22AM By SAMARA RAPHAEL MA ; [facility] RisperDAL 3 MG OR TABS 09/16/2009 - 02/26/2010 Provide r: Diagnosis: Last Documented On 0 12:00PM By SAMARA RAPHAEL MA ; [facility] Cymbalta 30 MG OR CPEP 09/16/2009 - 09/16/2009 Provide r: Diagnosis: AM Last Documented On 09/16/2009 1:48PM By SAMARA RAPHAEL MA ; [facility] Rythmol 150 MG OR TABS 09/16/2009 - 11/16/2011 Provide r: Diagnosis: 1 1/2 TAB TID Last Documented On 11/16/2011 10:22AM By TAMMY SMILEY ; [facility] KlonoPIN 1 MG OR TABS 09/16/2009 - 02/26/2010 Provider : Diagnosis: Last Documented On 0 12:06PM By SAMARA RAPHAEL MA ; [facility] Vistaril 50 MG OR CAPS 09/16/2009 - 02/21/2013 Provide r: Diagnosis: Last Documented On 02/21/2013 10:45AM By TAMMY SMILEY ; [facility] Zetia 10 MG OR TABS 09/16/2009 - 02/26/2010 Provider: Diagnosis: Last Documented On 0 11:58AM By SAMARA RAPHAEL MA ; [facility] Wellbutrin SR 150 MG OR TB12 09/16/2009 - 01/20/2011 P rovider: Diagnosis: Last Documented On 1 3:37PM By JAH MORALEZ MA ; [facility] Furosemide 20 MG OR TABS 09/16/2009 - 02/21/2013 Provi kev: Diagnosis: 1 EVERY OTHER DAY Last Documented On 02/21/2013 10:44AM By TAMMY SMILEY ; [facility] Zenpep [id number] UNIT OR CPEP 09/16/2009 - 02/26/2010 Prov ider: Diagnosis: Last Documented On 0 11:54AM By SAMARA RAPHAEL MA ; [facility] Darvon-N 100 MG OR TABS 09/16/2009 - 01/20/2011 Provid er: Diagnosis: 1-2 TABLETS OCCASIONALY Last Documented On 1 3:40PM By JAH MORALEZ MA ; [facility] Levsin 0.125 MG OR TABS 09/16/2009 - 01/20/2011 Provid er: Diagnosis: EVERY 3-4 HOURS Last Documented On 1 3:38PM By JAH MORALEZ MA ; [facility] LaMICtal 25 MG OR TABS 09/16/2009 - 02/26/2010 Provide r: Diagnosis: 1 TAB UNTIL 09/26/09 THEN TAKE 2 TABS Last Documented On 0 11:55AM By SAMARA RAPHAEL MA ; [facility] Imdur 30 MG OR TB24 07/08/2009 - 02/26/2010 Provider: CHRIS MALAVE DO Diagnosis: Last Documented On 0 12:04PM By SAMARA RAPHAEL MA ; [facility] Imdur 30 MG OR TB24 07/08/2009 - 02/26/2010 Provider: CHRIS MALAVE D.O. Diagnosis: Last Documented On 0 12:04PM By SAMARA RAPHAEL MA ; [facility] Folic Acid 1 MG OR TABS 06/30/2009 - 02/16/2012 Provid er: CHRIS MALAVE D.O. Diagnosis: Last Documented On 02/16/2012 11:09AM By TAMMY SMILEY ; [facility] Folic Acid 1 MG OR TABS 03/10/2009 - 06/30/2009 Provid er: CHRIS MALAVE D.O. Diagnosis: Last Documented On 06/30/2009 12:35PM By CHRIS MALAVE DO ; [facility] Protonix 40 MG OR PACK 02/05/2009 - 02/26/2010 Provide r: CHRIS MALAVE D.O. Diagnosis: Last Documented On 0 12:02PM By SAMARA RAPHAEL MA ; [facility] Symbicort 160-4.5 MCG/ACT IN AERO 12/11/2008 - 010 Provider: Diagnosis: 2PUFFS BID PRN Last Documented On 0 12:02PM By SAMARA RAPHAEL MA ; [facility] Coreg 25 MG OR TABS 12/11/2008 - 02/26/2010 Provider: Diagnosis: Last Documented On 0 12:03PM By SAMARA RAPHAEL MA ; [facility] Rythmol 150 MG OR TABS 12/11/2008 - 09/16/2009 Provide r: Diagnosis: 1 07/04 TAB TID Last Documented On 09/16/2009 1:47PM By SAMARA RAPHAEL MA ; [facility] Tricor 145 MG OR TABS 12/11/2008 - 09/16/2009 Provider : Diagnosis: NOON Last Documented On 09/16/2009 1:49PM By SAMARA RAPHAEL MA ; [facility] Zetia 10 MG OR TABS 12/11/2008 - 09/16/2009 Provider: Diagnosis: Last Documented On 09/16/2009 1:45PM By SAMARA RAPHAEL MA ; [facility] Lipitor 20 MG OR TABS 12/11/2008 - 09/16/2009 Provider : Diagnosis: Last Documented On 09/16/2009 1:45PM By SAMARA RAPHAEL MA ; [facility] Imdur 30 MG OR TB24 12/11/2008 - 07/08/2009 Provider: Diagnosis: Last Documented On 0 10:31AM By SAMARA RAPHAEL MA ; [facility] Folic Acid 1 MG OR TABS 12/11/2008 - 02/26/2010 Provid er: Diagnosis: Last Documented On 0 12:02PM By SAMARA RAPHAEL MA ; [facility] Imuran 50 MG OR TABS 12/11/2008 - 09/16/2009 Provider: Diagnosis: Last Documented On 09/16/2009 1:51PM By SAMARA RAPHALE MA ; [facility] Geodon 80 MG OR CAPS 12/11/2008 - 02/26/2010 Provider: Diagnosis: Last Documented On 0 12:04PM By SAMARA RAPHAEL MA ; [facility] KlonoPIN 1 MG OR TABS 12/11/2008 - 09/16/2009 Provider : Diagnosis: Last Documented On 09/16/2009 1:46PM By SAMARA RAPHAEL MA ; [facility] Vistaril 50 MG OR CAPS 12/11/2008 - 09/16/2009 Provide r: Diagnosis: 1-3 DLY Last Documented On 09/16/2009 1:46PM By SAMARA RAPHAEL MA ; [facility] Wellbutrin SR 150 MG OR TB12 12/11/2008 - 09/16/2009 P rovider: Diagnosis: Last Documented On 09/16/2009 1:44PM By SAMARA RAPHAEL MA ; [facility] RisperDAL 3 MG OR TABS 12/11/2008 - 09/16/2009 Provide r: Diagnosis: Last Documented On 09/16/2009 1:47PM By SAMARA RAPHAEL MA ; [facility] Cymbalta 30 MG OR CPEP 12/11/2008 - 09/16/2009 Provide r: Diagnosis: AM Last Documented On 09/16/2009 1:47PM By SAMARA RAPHAEL MA ; [facility] NexIUM 40 MG OR CPDR 12/11/2008 - 02/26/2010 Provider: Diagnosis: Last Documented On 0 12:02PM By SAMARA RAPHAEL MA ; [facility] Lisinopril 20 MG OR TABS 11/29/2008 - 02/16/2012 Provi kev: KALANI TURCIOS M.D. Diagnosis: 1/2 QD Last Documented On 02/16/2012 11:38AM By TAMMY SMILEY ; [facility] Lasix 40 MG OR TABS 11/29/2008 - 09/16/2009 Provider: KALANI TURCIOS M.D. Diagnosis: 12 QD Last Documented On 09/16/2009 1:42PM By SAMARA RAPHAEL MA ; [facility] Potassium Chloride 20 MEQ OR PACK 11/29/2008 - 012 Provider: Diagnosis: 12 QD Last Documented On 02/16/2012 11:40AM By TAMMY SMILEY ; [facility] Ferrous Sulfate 325 (65 Fe) MG OR TABS 11/29/2008 - 02/21/2013 Provider: KALANI TURCIOS M.D. Diagnosis: Last Documented On 02/21/2013 10:45AM By TAMMY SMILEY ; [facility] Medications Administered Includes: Administered Medications in patient's chart Medications Administered Diagnosis Date Pro vider Nitrostat 0.4 MG SL SUBL Other chest pain 05/30/2018 CHRIS A CRANCER D.O. Last Documented On 8 4:39PM By ASHISH SMILEY ; [facility] Nitrostat 0.4 MG SL SUBL 09/18/[address] A CRANCER D.O. Last Documented On 6 4:12PM By ASHISH SMILEY ; [facility] Results Includes: Results from 06/19/2024 through 06/19/2025 No Results Recorded For Specified Dates History of Present Illness History of Present Illness not supported for this document type No History of Present Illness Recorded Social History Description Last Updated Non-smoker 11/13/2019 Last Documented On 0 4:11PM ; [facility] Smoking status : Never smoker 03/14/2019 Last Documented On 9 1:38PM ; [facility] Currently 01/23/2014 Last Documented On 4 9:24AM ; [facility] No consumption of alcohol 01/23/2014 Last Documented On 4 9:24AM ; [facility] No tobacco use 01/23/2014 Last Documented On 4 9:24AM ; [facility] Not a current smoker 01/23/2014 Last Documented On 4 9:24AM ; [facility] Not using alcohol 01/23/2014 Last Documented On 4 9:24AM ; [facility] Not using drugs 01/23/2014 Last Documented On 4 9:24AM ; [facility] Medical History Includes: Medical History in patient's chart Description Last Updated Pt does not get blood pressure checked a t other facility 01/20/2010 Last Documented On 0 6:25PM ; [facility] AFIB,RA,DEPRESSION,ELEVATED LIVER ENZYME S 09/17/2009 Last Documented On 0 9:18AM ; [facility] History of coronary artery disease 09/17 Last Documented On 0 9:18AM ; [facility] History of hyperlipidemia 09/17/2009 Last Documented On 0 9:18AM ; [facility] Exposure to dust 12/11/2008 Last Documented On 9 4:18PM ; [facility] Surgery BACK SURGERY 12/11/2008 Last Documented On 9 4:18PM ; [facility] Family History Includes: Family History in patient's chart Description Last Updated Family history reviewed - unchanged [facility] e last visit 09/18/2015 Last Documented On 6 5:21PM ; [facility] Sororal history of coronary artery disea se 11/04/2014 Last Documented On 5 4:12PM ; [facility] Family medical history : No significant family history 11/03/2014 Last Documented On 5 4:12PM ; [facility] Sister SEVERE HEART ARYTHMIA ? 12/11/2008 Last Documented On 9 4:18PM ; [facility] Review of Systems Review of Systems not supported for this document type No Review of Systems Recorded Mental Status No Mental Status Recorded Functional Status No Functional Status Recorded Physical Exam Physical Exam not supported for this document type No Physical Exam Recorded Immunizations Includes: Immunizations in patient's chart Vaccine Dose # Date Site Reaction(s) Status Source Influenza (Quadrivalent) PF 0.5ml 1 04/11/2019 Left Arm Complete (Reported) Patient Last Documented On 9 1:05PM ; [facility] Influenza (Quadrivalent)36 mo.& older PF 0.5ml (SD) 1 04/21/2017 Right Arm Complete (Repo rted) Patient Last Documented On 7 11:15AM ; [facility] Allergies Includes: Active, inactive, and resolved Allergies Substance Type Reaction Onset Date Resolved Date Statu s Plaquenil Allergy vision problems 04/23/2010 A ctive Last Documented On 0 1:06PM ; [facility] Imitrex Allergy rapid HR 04/23/2010 Active Last Documented On 0 1:06PM ; [facility] Abilify Allergy 04/23/2010 Active Last Documented On 0 1:06PM ; [facility] Insurance Includes: Active Insurance Policies Plan Name Member ID Group # Subscriber Relationship Effect azar Dates 1 - MEDICARE PART A CLAIMS/NGS [id number] KINDRA A RODRIGUEZ Self 12/01/2009 - Unknown 2 - [facility] [id number] KINDRA A RODRIGUEZ Self Clinical Notes Includes: Signed Clinical Notes starting from 07/22/2022 No Clinical Notes Recorded
--- OUTSIDE RECORDS SUMMARY | 2025-06-19 15:30 | XMS_ITS | Encounter Summary ---
Author Organization [facility] Address [address] [place] [address] Care Team Providers Care Recycling Program Manager Name Role Phone Nolvia Olivares MD, Butch Sanches Primary Care Provider Reason for Visit * Reason Onset Date Comments Chest pain, passed out 07/12/2022 Spoke W/ Tammie at Dr. Downs's office Encounter Details Date Type Department Care Team (Late st Contact Info) Description 07/12/2022 Telephone [facility] [address] [place] [address] [place] [id number] [address] Chest pain, passed out [...] Coronavirus/COVID-19? No / Unsure 07/11/2022 5:52 PM FISCAL SERVICES DIRECTOR documented as of this encounter Plan of Treatment Not on file documented as of this encounter Visit Diagnoses Not on filedocumented in this encounter Care Teams Recycling Program Manager Relationship Specialty Start Date End Date Nolvia Olivares, Butch Sanches MD [address] [place] [phone] PCP - General Internal Medicine 05/10/22 documented as of this encounter
--- OUTSIDE RECORDS SUMMARY | 2025-06-19 15:30 | XMS_ITS | Encounter Summary ---
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 Gender Identity Not on file [...] COVID: Suspected 06/14/2021 06/14/2021 06/14/2021 7:24 PM BOXING MACHINE OPERATOR COVID: Suspected 01/16/2022 01/16/2022 01/16/2022 7:20 PM CDT COVID: Suspected 08/22/2022 08/22/2022 08/22/2022 9:42 AM BOXING MACHINE OPERATOR COVID: Suspected 08/04/2024 08/04/2024 08/04/2024 3:41 PM BOXING MACHINE OPERATOR COVID: Suspected 08/05/2024 08/05/2024 08/05/2024 1:23 PM BOXING MACHINE OPERATOR Rhino/Enterovirus 11/08/2024 11/08/2024 11/15/2024 3:05 AM CDT documented as of this encounter Care Teams Internal Affairs Commander Relationship Specialty Start Date End Date Heydi Hood MD [address] [place] [address] PCP - General Family Medicine 03/03/21 06/13/21 Heydi Hood MD [address] [place] [address] PCP - General 06/14/21 06/16/21 Butch De Souza Jr., MD [address] [address] PCP - General Internal Medicine 06/17/21 Swathi Golden, [place] Registered Nurse 04/15/19 01/18/23 Sheri Mac MD [address] [address] Endocrinology 06/17/21 12/09/24 Yessica Worthy MD [address] [facility] [address] [place] [address] Referring Physician Rheumatology 06/17/21 [place] [address] [place] [address] Consulting Physician Gastroenterology 06/17/21 Cortney García RN [address] [place] [address] [address] [place] [address] Applications Development Consultant 11/09/23 05/30/24 Ajay Downs MD [address] [place] [address] [facility] [address] [place] [address] Consulting Physician Cardiovascular Disease 07/09/24 Grey Hand, [place] [address] [place] [address] [facility] [address] [place] [address] Applications Development Consultant 08/12/24 [place] [address] [facility] [address] [place] [address] Consulting Physician Pulmonary Disease 12/10/24 documented as of this encounter
== END 2025-06-19 14:49 | disposition left against medical advice (07) ==
PROVIDERS: Emergency Provider Physician Assistant
DX: R03.1 Nonspecific low blood-pressure reading (principal); I34.1 Nonrheumatic mitral (valve) prolapse; I10 Essential (primary) hypertension; I48.91 Unspecified atrial fibrillation; E78.5 Hyperlipidemia, unspecified; H40.9 Unspecified glaucoma; G47.33 Obstructive sleep apnea (adult) (pediatric); G62.9 Polyneuropathy, unspecified; M06.9 Rheumatoid arthritis, unspecified; M79.7 Fibromyalgia; F32.A Depression, unspecified; F43.10 Post-traumatic stress disorder, unspecified; F41.9 Anxiety disorder, unspecified; Z96.611 Presence of right artificial shoulder joint; Z95.818 Presence of other cardiac implants and grafts; Z86.16 Personal history of COVID-19; Z86.73 Personal history of transient ischemic attack (TIA), and cerebral infarction without residual deficits; Z85.828 Personal history of other malignant neoplasm of skin; Z87.442 Personal history of urinary calculi; Z90.49 Acquired absence of other specified parts of digestive tract; Z79.01 Long term (current) use of anticoagulants; Z79.899 Other long term (current) drug therapy
CPT/HCPCS: 99281